=== PATIENT | female | born 1965 | race Hispanic/Latino ===

== ENCOUNTER 2016-11-06 09:57 | Inpatient (IN) | payer MEDICAID ==
[2016-11-06 10:14] VITALS: BMI 26.9
--- NOTE | 2016-11-06 10:28 | C.PDOC ---
History Of Present Illness 51 y/o female presents to the ED with complains of generalized diffuse abdominal pain x2 days. Pain is described as pressure, nonradiating, no known triggers. Denies relieving factors. Pt also reports SOB due to distension. Pt also complains of constipation x 3-4 days. Pt denies fever, chills, urinary symptoms, dizziness, chest pain or any other complaints. Pt reports history of small bowel obstruction 2 months [address] Dr[address] Caraballo did her surgery. Chief Complaint (Nursing): Abdominal Pain History Per: Patient History/Exam Limitations: no limitations Onset/Duration Of Symptoms: Days Current Symptoms Are (Timing): Still Present Severity: Moderate Location Of Pain/Discomfort: Diffuse Radiation Of Pain To:: None Quality Of Discomfort: Pressure Associated Symptoms: Constipation. denies: Fever, Chills, Nausea, Vomiting, Diarrhea, Chest Pain, Urinary Symptoms Alleviating Factors: None Last Bowel Movement: Days Ago Recent travel outside of the [place]: No Past Medical History Reviewed: Historical Data, Nursing Documentation, Vital Signs Vital Signs: Last Vital Signs Temp 99.6 F 11/06/16 10:13 Pulse 124 H 11/06/16 16:05 Resp 18 11/06/16 16:05 BP 95/68 L 11/06/16 16:05 Pulse Ox 96 11/06/16 16:05 - Medical History PMH: Anxiety, Bipolar Disorder, COPD, Depression, Emphysema, Obstructive Bowel Surgical History: Cholecystectomy - [facility] Procedures CYSTOGRAM NEC (01/28/15) DRAINAGE OF RIGHT MIDDLE LOBE BRONCHUS, ENDO, DIAGN (09/21/16) EXCISION OF RIGHT MAIN BRONCHUS, ENDO, DIAGN (09/21/16) INSERTION OF ENDOTRACHEAL AIRWAY INTO TRACHEA, VIA OPENING (09/21/16) INTRODUCTION OF VASOPRESSOR INTO CENTRAL VEIN, PERC APPROACH (09/21/16) RELEASE SMALL INTESTINE, OPEN APPROACH (09/02/16) RESPIRATORY VENTILATION, GREATER THAN 96 CONSECUTIVE HOURS (09/21/16) Family History: States: Unknown Family Hx - Social History Hx Tobacco Use: Yes Hx Alcohol Use: No Hx Substance Use: No - Immunization History Hx Tetanus Toxoid Vaccination: No Hx Influenza Vaccination: No Hx Pneumococcal Vaccination: No Review Of Systems Except As Marked, All Systems Reviewed And Found Negative. Constitutional: Negative for: Fever, Chills Cardiovascular: Negative for: Chest Pain Respiratory: Positive for: Shortness of Breath Gastrointestinal: Positive for: Abdominal Pain, Constipation. Negative for: Nausea, Vomiting Genitourinary: Negative for: Dysuria, Frequency, Hematuria Neurological: Negative for: Dizziness Physical Exam - Physical Exam Appears: Non-toxic, No Acute Distress Skin: Warm, Dry, No Rash Head: Atraumatic, Normacephalic Chest: Symmetrical Cardiovascular: Rhythm Regular Respiratory: Normal Breath Sounds, No Rales, No Rhonchi, No Wheezing Gastrointestinal/Abdominal: Bowel Sounds (hypoactive), Tenderness (diffuse), Distention, Guarding, No Rebound Extremity: No Pedal Edema, No Calf Tenderness, No Swelling Extremity: Bilateral: Atraumatic Neurological/Psych: Oriented x3 ED Course And Treatment - Laboratory Results Result Diagrams: 11/06/16 11:04 11/06/16 11:04 ECG: Viewed By Me ECG Rhythm: Sinus Tachycardia ECG Interpretation: Abnormal Rate From EC O2 Sat by Pulse Oximetry: 96 (on room air) Pulse Ox Interpretation: Normal Reassessment Condition: Improved Medical Decision Making Medical Decision Making: Plan: * XR obstructive series * morphine * IV fluids * NG tube Pt with apparent obstruction on physical exam and on abdominal obstructive series. NG tube placed successfully in ED by Dr. Gil. 100 ml of yellowish fluid was taken out. Discussed pt with her PCP Dr. Valadez and surgeon, Dr Caraballo. pt will be admitted under Dr. Valadez's medical service and Dr. Caraballo will be consulted. Disposition Counseled Patient/Family Regarding: Studies Performed, Diagnosis - Disposition Disposition: HOSPITALIZED Disposition Time: 13:15 Condition: STABLE - Clinical Impression Clinical Impression: Small bowel obstruction
[2016-11-06] MEDS ORDERED: Sodium Chloride 0.9% 1,000 ML ONE ×2 (10:36→13:52)
[2016-11-06] MEDS ORDERED: Sodium Chloride 0.9% 1,000 ML IV ONE ×3 (10:41→16:03)
[2016-11-06 11:12] LABS: EOS % 0.1 % (0.0-4.0); NRBC % 0.1 % (0.0-2.0)
[2016-11-06 11:15] LABS: BASO % 0.3 % (0.0-2.0); HEMATOCRIT 41.3 % (34.0-47.0); LYMPH # 1.3 K/uL (1.0-4.3); LYMPH % 14.2 % (20.0-40.0); MEAN CELL VOLUME 90.4 fL (81.0-99.0); MEAN CORPUSCULAR HEMOGLOBIN 30.2 pg (27.0-31.0); MEAN CORPUSCULAR HGB CONC 33.4 g/dL (33.0-37.0); MEAN PLATELET VOLUME 7.7 fL (7.2-11.7); MONO # 0.2 K/uL (0.0-0.8); MONO % 2.6 % (0.0-10.0); RED CELL DISTRIBUTION WIDTH 15.4 % (11.5-14.5); WHITE BLOOD COUNT 9.2 K/uL (4.8-10.8)
[2016-11-06 11:21] LABS: CHLORIDE 100 mmol/L (98-107); POTASSIUM 3.6 mmol/L (3.6-5.2); SODIUM 140 mmol/L (132-148)
[2016-11-06 11:23] LABS: AST/SGOT 24 U/L (14-36); BILIRUBIN,TOTAL 0.4 mg/dL (0.2-1.3); CARBON DIOXIDE 26 mmol/L (22-30); GFR AFRICAN-AMERICAN > 60
[2016-11-06 11:24] LABS: ALB/GLOB RATIO 1.1 (1.0-2.1); ALKALINE PHOSPHATASE 100 U/L (38-126); ALT/SGPT 39 U/L (9-52); BLOOD UREA NITROGEN 16 mg/dL (7-17); GLUCOSE,RANDOM 88 mg/dL (65-105); TOTAL PROTEIN 5.5 g/dL (6.3-8.3)
[2016-11-06] MEDS ORDERED: HYDROmorphone 1 mg/ml ISec ONE (12:08)
--- NOTE | 2016-11-06 12:44 | RAD ---
PROCEDURE: Radiographs of the chest and abdomen (obstructive series) HISTORY: abdominal pain COMPARISON: No prior. TECHNIQUE: AP radiograph of the chest, with upright and supine radiographs of the abdomen. FINDINGS: CHEST: Lungs: Right basilar opacity. Infiltrate versus atelectasis. Questionable reticular interstitial infiltrate in the right lung. This represents interval change. Follow-up advised. Cardiovascular: Normal size heart. No pulmonary vascular congestion. Pleura: No pleural fluid. No pneumothorax. Other findings: None. ABDOMEN AND PELVIS: Bowel: Multiple dilated small bowel loops suspicious for mechanical small bowel obstruction. Surgical clips noted in right upper quadrant presumably status post prior cholecystectomy. Retained feces are noted in the right colon. Free air: None. Bones: Unremarkable. Other findings: None. IMPRESSION: Suspect mechanical small bowel obstruction. Followup advised. Right basilar infiltrate versus atelectasis. Questionable reticular interstitial infiltrate in the right lung, diffuse. Followup advised.
[2016-11-06] MEDS ORDERED: Morphine 4 MG/ML VIAL ONE (13:52)
[2016-11-06] MEDS ORDERED: HYDROmorphone 1 mg/ml ISec IVP STA (15:51)
--- NOTE | 2016-11-06 17:29 | CP.PCM.HP ---
History of Present Illness - History of Present Illness History of Present Illness: CC: abdominal pain HPI: 51F with extensive PMHx s/p SBO surgery done by Dr. Caraballo in August 2016. Patient reports she saw Dr. Caraballo earlier in the week for a follow up appointment and she felt fine. Two days ago she started to have nausea and diffuse, pressure-like abdominal abdominal pain. She had a small bowel movement , yesterday nonbloody diarrhea. She reports feeling nausea, some SOB due to the abdominal pain. Denied fever, chills, RAZO, chest pain, d/c, or urinary symptoms. PMD: Valadez PMHx: [place] x3, CAD, Lupus, CVA, Depression, Anxiety, COPD, Seizures PSHx: Cholecystectomy, Lysis of Adhesions in 09/05/[address] Caraballo. Meds: Aripiprazole, Advair, Spiriva, Albuterol Nebs, ASA 81 daily, Sertraline 100mg daily, Clopidogrel 75mg daily, Metoprolol 25mg Daily, Levetiracetam 500mg BID, Hydrocodone 10mg, Flexeril 10mg, Alprazolam 2mg, Pantoprozole 40mg, Gabapentin 300mg. ALL: NKDA FamilyHx: Father - Depression SocialHx: 1ppd for 30 years. No ETOH, No recreational drugs. Lives alone in apartment Present on Admission - Present on Admission Any Indicators Present on Admission: No Review of Systems - Constitutional Constitutional: absent: Fever, Headache, Night Sweats - Cardiovascular Cardiovascular: absent: Chest Pain, Syncope - Respiratory Respiratory: absent: Cough, Dyspnea - Gastrointestinal Gastrointestinal: Abdominal Pain, Nausea. absent: Constipation, Diarrhea, Vomiting - Genitourinary Genitourinary: absent: Hematuria, Urinary Frequency, Urinary Hesitance - Musculoskeletal Musculoskeletal: absent: Back Pain - Neurological Neurological: absent: Syncope, Weakness Past Patient History - Infectious Disease Hx of Infectious Diseases: None - Past Medical History & Family History Past Medical History?: Yes - Past Social History Smoking Status: Heavy Smoker > 10 Cigarettes Daily - CARDIAC Hx Cardiac Disorders: No Hx Heart Attack: Yes (x3 as per patient) - PULMONARY Hx Chronic Obstructive Pulmonary Disease (COPD): Yes Hx Emphysema: Yes - NEUROLOGICAL HX Cerebrovascular Accident: Yes (x2) - HEENT Hx HEENT Problems: No - RENAL Hx Chronic Kidney Disease: No - ENDOCRINE/METABOLIC Hx Endocrine Disorders: Yes Hx Systemic Lupus Erythematosus: Yes - HEMATOLOGICAL/ONCOLOGICAL Hx Blood Disorders: No - INTEGUMENTARY Hx Dermatological Problems: No - MUSCULOSKELETAL/RHEUMATOLOGICAL Hx Falls: No - GASTROINTESTINAL Hx Gastrointestinal Disorders: Yes Hx Bowel Surgery: Yes (August 2016) Hx Gastroesophageal Reflux: Yes Other/Comment: GERD - GENITOURINARY/GYNECOLOGICAL Hx Genitourinary Disorders: Yes Hx Incontinence: Yes - PSYCHIATRIC Hx Anxiety: Yes Hx Bipolar Disorder: Yes Hx Depression: Yes Hx Substance Use: No - SURGICAL HISTORY Hx Cholecystectomy: Yes - ANESTHESIA Hx Anesthesia: Yes Hx Anesthesia Reactions: No Hx Malignant Hyperthermia: No Meds Allergies/Adverse Reactions: Allergies Allergy/AdvReac Type Severity Reaction Status Date / Time No Known Allergies Allergy Verified 11/06/16 10:12 Physical Exam - Constitutional Appears: In Acute Distress - Respiratory Exam Respiratory Exam: Clear to Auscultation Bilateral, NORMAL BREATHING PATTERN. absent: Decreased Breath Sounds - Cardiovascular Exam Cardiovascular Exam: Tachycardia, +S1, +S2 - GI/Abdominal Exam GI & Abdominal Exam: Distended, Normal Bowel Sounds, Soft, Tenderness - Rectal Exam Rectal Exam: Deferred - Extremities Exam Extremities exam: Positive for: normal inspection, pedal pulses present. Negative for: pedal edema, tenderness - Neurological Exam Neurological exam: Alert, Oriented x3 - Psychiatric Exam Psychiatric exam: Anxious - Skin Skin Exam: Dry, Intact, Normal Color Results - Vital Signs Recent Vital Signs: Last Vital Signs Temp 99.6 F 11/06/16 10:13 Pulse 124 H 11/06/16 16:05 Resp 18 11/06/16 16:05 BP 95/68 L 11/06/16 16:05 Pulse Ox 96 11/06/16 16:56 - Labs Result Diagrams: 11/06/16 11:04 11/06/16 11:04 Assessment & Plan - Assessment and Plan (Free Text) Plan: SBO * Hx of SBO, surgery done 08/[address] Caraballo * Abdominal Obstructive Series - mechanical small bowel obstruction * NPO * IVF * Zofran * Morphine * Surgery consulted: Dr. Caraballo- help appreciated COPD * Advair * Spiriva Congestive Heart Failure * Echo: EF 45-50% systolic function is normal, mild aortic regurgitation, mitral regurgitaion is mild, mild tricuspid regurgitation, mild-moderate pulmonary hypertension, no pulmonic valvuar regurgitation Coronary Artery Disease * Aspirin 81mg PO daily * Plavix 75mg PO daily Hx of Seizures * Keppra 500mg PO BID * Seizure precautions Lupus * Patient reports has had for 18 years and completed renal biopsy to support lupus nephritis Depression/ Anxiety * Abilify 5mg PO HS * Zoloft 100mg PO daily Prophylactic Measures * GI PPX: Protonix 40mg IVP daily * DVT PPX: lovenox 40 SC daily/ SCDs DW Lenny Snyder DO, PGY-1
[2016-11-06] MEDS ORDERED: Morphine 4 MG/ML VIAL IVP PRN (17:45)
--- NOTE | 2016-11-06 18:18 | CP.PCM.CON ---
History of Present Illness - History of Present Illness History of Present Illness: Surgery consult for Dr. Caraballo 51F with PSh of lysis of adhesion in 09/05/16 for SBO, open daysi, and PMH SBO, SLE, COPD, [place], CVA presents to ED with abd pain, N/V/D. Pt had diagnostic laparoscopic Lysis of adhesion in 09/05/16. She continue to have pain 1 week after the surgery. Pain has been intermittent and has gotten worsen last few day. Pt saw Dr. Caraballo earlier in the week for a follow up appointment and she felt fine. Two days ago she started to have nausea and diffuse, pressure-like abdominal abdominal pain. She had a small bowel movement , yesterday nonbloody diarrhea. She reports non bloody non bilious vomiting 10 days ago. Denied fever, chills, RAZO, chest pain, c, or urinary symptoms. PMD: Valadez PMHx: [place] x3, CAD, Lupus, CVA, Depression, Anxiety, COPD, Seizures PSHx: Cholecystectomy, Lysis of Adhesions in 09/05/[address] Caraballo. Meds: Aripiprazole, Advair, Spiriva, Albuterol Nebs, ASA 81 daily, Sertraline 100mg daily, Clopidogrel 75mg daily, Metoprolol 25mg Daily, Levetiracetam 500mg BID, Hydrocodone 10mg, Flexeril 10mg, Alprazolam 2mg, Pantoprozole 40mg, Gabapentin 300mg. FamilyHx: Father - Depression SocialHx: 1ppd for 30 years. No ETOH, No recreational drugs. Lives alone in apartment Review of Systems - Review of Systems Review of Systems: See HPI - Constitutional Constitutional: absent: Chills Past Patient History - Infectious Disease Hx of Infectious Diseases: None - Past Medical History & Family History Past Medical History?: Yes - Past Social History Smoking Status: Heavy Smoker > 10 Cigarettes Daily - CARDIAC Hx Cardiac Disorders: No Hx Heart Attack: Yes (x3 as per patient) - PULMONARY Hx Chronic Obstructive Pulmonary Disease (COPD): Yes Hx Emphysema: Yes - NEUROLOGICAL HX Cerebrovascular Accident: Yes (x2) - HEENT Hx HEENT Problems: No - RENAL Hx Chronic Kidney Disease: No - ENDOCRINE/METABOLIC Hx Endocrine Disorders: Yes Hx Systemic Lupus Erythematosus: Yes - HEMATOLOGICAL/ONCOLOGICAL Hx Blood Disorders: No - INTEGUMENTARY Hx Dermatological Problems: No - MUSCULOSKELETAL/RHEUMATOLOGICAL Hx Falls: No - GASTROINTESTINAL Hx Gastrointestinal Disorders: Yes Hx Bowel Surgery: Yes (August 2016) Hx Gastroesophageal Reflux: Yes Other/Comment: GERD - GENITOURINARY/GYNECOLOGICAL Hx Genitourinary Disorders: Yes Hx Incontinence: Yes - PSYCHIATRIC Hx Anxiety: Yes Hx Bipolar Disorder: Yes Hx Depression: Yes Hx Substance Use: No - SURGICAL HISTORY Hx Cholecystectomy: Yes - ANESTHESIA Hx Anesthesia: Yes Hx Anesthesia Reactions: No Hx Malignant Hyperthermia: No Meds Allergies/Adverse Reactions: Allergies Allergy/AdvReac Type Severity Reaction Status Date / Time No Known Allergies Allergy Verified 11/06/16 10:12 - Medications Medications: Current Medications Sodium Chloride (Sodium Chloride 0.9%) 1,000 mls @ 100 mls/hr IV .Q10H [facility] Morphine Sulfate (Morphine Sulfate) 4 mg IVP Q4H PRN Ondansetron HCl (Zofran Inj) 4 mg IVP Q6 PRN PRN Reason: Nausea/Vomiting Pantoprazole Sodium (Protonix Inj) 40 mg IVP DAILY [facility] Physical Exam - Constitutional Appears: In Acute Distress - Head Exam Head Exam: ATRAUMATIC, NORMAL INSPECTION, NORMOCEPHALIC - Eye Exam Eye Exam: EOMI, Normal appearance, PERRL Pupil Exam: NORMAL ACCOMODATION, PERRL - ENT Exam ENT Exam: Mucous Membranes Moist, Normal Exam Additional comments: NG in place 200 output. - Neck Exam Neck exam: Positive for: Normal Inspection - Respiratory Exam Respiratory Exam: Clear to Auscultation Bilateral, NORMAL BREATHING PATTERN - Cardiovascular Exam Cardiovascular Exam: REGULAR RHYTHM - GI/Abdominal Exam GI & Abdominal Exam: Distended, Guarding. absent: Hernia, Mass, Tenderness Additional comments: Well healed incision - Extremities Exam Extremities exam: Positive for: normal inspection - Back Exam Back exam: NORMAL INSPECTION - Neurological Exam Neurological exam: Alert, CN II-XII Intact, Normal Gait, Oriented x3, Reflexes Normal - Psychiatric Exam Psychiatric exam: Normal Affect - Skin Skin Exam: Dry, Intact, Normal Color, Warm Results - Vital Signs Recent Vital Signs: Last Vital Signs Temp 99.6 F 11/06/16 10:13 Pulse 124 H 11/06/16 16:05 Resp 18 11/06/16 16:05 BP 95/68 L 11/06/16 16:05 Pulse Ox 96 11/06/16 16:56 - Labs Result Diagrams: 11/06/16 11:04 11/06/16 11:04 Assessment & Plan - Assessment and Plan (Free Text) Assessment: SBO Obstructive series: SBO -NPO -NGT on low suction -IVF -Serial abd exam -Medical management DW Dr. Caraballo
[2016-11-06] MEDS: Sodium Chloride 0.9% 1,000 ML IV SCH (18:21)
[2016-11-07] MEDS: Morphine 4 MG/ML VIAL IVP PRN ×2 (01:59→05:57)
[2016-11-07] MEDS: Sodium Chloride 0.9% 1,000 ML IV SCH ×2 (05:57→13:13)
[2016-11-07] MEDS: Fluticasone-Salmeterol 250-50mcg Diskus IH SCH ×3 (08:06→19:53)
--- NOTE | 2016-11-07 08:35 | CP.PCM.PN ---
Subjective - Date & Time of Evaluation Date of Evaluation: 11/07/16 Time of Evaluation: 08:32 - Subjective Subjective: Surgery for Dr. Caraballo Pt s&e. Pt feels better but stil c/o diffuse abd pain. NG put out 1 L bilious fluids. Denies F//N/V. No BM today. Last one was 2 days ago/ Objective - Vital Signs/Intake and Output Vital Signs (last 24 hours): Temp Pulse Resp BP Pulse Ox 97.6 F 106 H 20 94/60 L 94 L 11/07/16 07:57 11/07/16 00:39 11/07/16 07:57 11/07/16 07:57 11/07/16 07:57 Intake and Output: 11/07/16 11/07/16 06:59 18:59 Intake Total 700 800 Output Total 450 1000 Balance 250 -200 - Medications Medications: Current Medications Aripiprazole (Abilify) 5 mg PO DAILY [facility] Aspirin (Aspirin Chewable) 81 mg PO DAILY [facility] Clopidogrel Bisulfate (Plavix) 75 mg PO DAILY [facility] Enoxaparin Sodium (Lovenox) 40 mg SC DAILY [facility] Famotidine (Pepcid) 20 mg PO BID [facility] Gabapentin (Neurontin) 300 mg PO DAILY [facility] Hydromorphone HCl (Dilaudid) 0.5 mg IVP Q3 PRN PRN Reason: pain Sodium Chloride (Sodium Chloride 0.9%) 1,000 mls @ 100 mls/hr IV .Q10H [facility] Last Admin: 11/07/16 05:57 Dose: 100 mls/hr Influenza Virus Vaccine (Afluria) 45 mcg IM .ONCE ONE Stop: 11/09/16 10:01 Ketorolac Tromethamine (Toradol) 30 mg IVP Q6 [facility] Levetiracetam (Keppra) 500 mg PO BID [facility] Morphine Sulfate (Morphine Sulfate) 4 mg IVP Q4H PRN PRN Reason: Pain, severe (8-10) Last Admin: 11/07/16 05:57 Dose: 4 mg Ondansetron HCl (Zofran Inj) 4 mg IVP Q6 PRN PRN Reason: Nausea/Vomiting Last Admin: 11/06/16 19:42 Dose: 4 mg Pneumococcal Polyvalent Vaccine (Pneumovax 23 Vaccine) 0.5 ml IM .ONCE ONE Stop: 11/09/16 10:01 Fluticasone/Salmeterol (Advair Diskus 250/50) 1 puff IH RBID [facility] Last Admin: 11/07/16 08:06 Dose: Not Given Sertraline HCl (Zoloft) 100 mg PO DAILY [facility] - Constitutional Appears: No Acute Distress - Head Exam Head Exam: ATRAUMATIC, NORMAL INSPECTION, NORMOCEPHALIC - Eye Exam Eye Exam: EOMI, Normal appearance, PERRL Pupil Exam: NORMAL ACCOMODATION, PERRL - ENT Exam ENT Exam: Mucous Membranes Moist, Normal Exam - Neck Exam Neck Exam: Full ROM, Normal Inspection. absent: Lymphadenopathy - Respiratory Exam Respiratory Exam: Clear to Ausculation Bilateral, NORMAL BREATHING PATTERN - Cardiovascular Exam Cardiovascular Exam: REGULAR RHYTHM, +S1, +S2. absent: Murmur - GI/Abdominal Exam GI & Abdominal Exam: Distended, Guarding, Soft, Tenderness. absent: Firm, Rigid , Rebound Additional comments: Diffuse TTP. Less distended today - Extremities Exam Extremities Exam: Full ROM, Normal Capillary Refill, Normal Inspection. absent : Joint Swelling, Pedal Edema - Back Exam Back Exam: NORMAL INSPECTION - Neurological Exam Neurological Exam: Alert, Awake, CN II-XII Intact, Normal Gait, Oriented x3 - Skin Skin Exam: Dry, Intact, Normal Color, Warm Assessment and Plan - Assessment and Plan (Free Text) Assessment: SBO -NPO -NGT -Pain control -Medical management -Monitor bowel function -YAZMIN Caraballo
[2016-11-07 09:31] LABS: BASO # 0.1 K/uL (0.0-0.2); BASO % 0.6 % (0.0-2.0); EOS % 0.1 % (0.0-4.0); HEMATOCRIT 33.4 % (34.0-47.0); LYMPH % 19.6 % (20.0-40.0); MEAN CELL VOLUME 90.1 fL (81.0-99.0); MEAN CORPUSCULAR HEMOGLOBIN 30.3 pg (27.0-31.0); MEAN CORPUSCULAR HGB CONC 33.7 g/dL (33.0-37.0); MEAN PLATELET VOLUME 7.2 fL (7.2-11.7); MONO # 0.4 K/uL (0.0-0.8); NRBC % 0.1 % (0.0-2.0); RED CELL DISTRIBUTION WIDTH 15.4 % (11.5-14.5); WHITE BLOOD COUNT 10.4 K/uL (4.8-10.8)
[2016-11-07 09:43] LABS: CHLORIDE 105 mmol/L (98-107)
[2016-11-07 09:44] LABS: POTASSIUM 3.3 mmol/L (3.6-5.2); SODIUM 138 mmol/L (132-148)
[2016-11-07 09:46] LABS: ALB/GLOB RATIO 0.9 (1.0-2.1); ALKALINE PHOSPHATASE 67 U/L (38-126); AST/SGOT 17 U/L (14-36); BILIRUBIN,TOTAL 0.5 mg/dL (0.2-1.3); BLOOD UREA NITROGEN 11 mg/dL (7-17); CARBON DIOXIDE 23 mmol/L (22-30); GFR AFRICAN-AMERICAN > 60; GLUCOSE,RANDOM 82 mg/dL (65-105); TOTAL PROTEIN 4.5 g/dL (6.3-8.3)
[2016-11-07 09:47] LABS: ALT/SGPT 29 U/L (9-52); CALCIUM 6.8 mg/dl (8.6-10.4)
[2016-11-07] MEDS: HYDROmorphone 0.5 mg/0.5 ml ISec IVP PRN ×5 (10:02→22:49)
[2016-11-07] MEDS: Enoxaparin 40 mg Syringe SC SCH (10:03)
[2016-11-07 10:45] LABS: RBC URINE 1 /hpf (0-3); URINE BACTERIA RARE (<OCC); URINE BILIRUBIN NEGATIVE (NEGATIVE); URINE BLOOD NEGATIVE (NEGATIVE); URINE COLOR Yellow (YELLOW); URINE GLUCOSE (UA) NORMAL (Normal); URINE KETONE NEGATIVE (NEGATIVE); URINE LEUKOCYTE ESTERASE NEG Leu/uL (Negative); URINE PROTEIN NEGATIVE (NEGATIVE); URINE UROBILINOGEN NORMAL mg/dL (0.2-1.0); WBC URINE 7 /hpf (0-5)
--- NOTE | 2016-11-07 19:15 | CP.PCM.PN ---
<Desi Santos - Last Filed: 11/07/16 19:13> Subjective - Date & Time of Evaluation Date of Evaluation: 11/07/16 Time of Evaluation: 10:00 - Subjective Subjective: Medicine Progress Note- Dr. Valadez's service: Patient seen and examined at bedside this AM. She reports abdominal pain has improved since taking medication this AM. Admits to nausea, but no vomiting. She has had good appetite. Last meal was night. No flatus no diarrhea or BM this morning. Patient requesting second surgeon opinion. Objective - Vital Signs/Intake and Output Vital Signs (last 24 hours): Temp Pulse Resp BP Pulse Ox 97.6 F 106 H 20 94/60 L 94 L 11/07/16 07:57 11/07/16 13:17 11/07/16 07:57 11/07/16 07:57 11/07/16 07:57 Intake and Output: 11/07/16 11/08/16 18:59 06:59 Intake Total 800 Output Total 2000 Balance -1200 - Medications Medications: Current Medications Aripiprazole (Abilify) 5 mg PO DAILY [facility] Last Admin: 11/07/16 10:10 Dose: 5 mg Aspirin (Aspirin Chewable) 81 mg PO DAILY [facility] Last Admin: 11/07/16 10:02 Dose: 81 mg Clopidogrel Bisulfate (Plavix) 75 mg PO DAILY [facility] Last Admin: 11/07/16 10:02 Dose: 75 mg Enoxaparin Sodium (Lovenox) 40 mg SC DAILY [facility] Last Admin: 11/07/16 10:03 Dose: 40 mg Famotidine (Pepcid) 20 mg PO BID [facility] Last Admin: 11/07/16 10:02 Dose: 20 mg Gabapentin (Neurontin) 300 mg PO DAILY [facility] Last Admin: 11/07/16 10:02 Dose: 300 mg Hydromorphone HCl (Dilaudid) 0.5 mg IVP Q3 PRN PRN Reason: pain Last Admin: 11/07/16 16:12 Dose: 0.5 mg Potassium Chloride/Dextrose/Sod Cl (Potassium Chl 20 Meq In D5-1/2ns) 1,000 mls @ 80 mls/hr IV .[id number] [facility] Influenza Virus Vaccine (Afluria) 45 mcg IM .ONCE ONE Stop: 11/09/16 10:01 Ketorolac Tromethamine (Toradol) 30 mg IVP Q6 [facility] Levetiracetam (Keppra) 500 mg PO BID [facility] Last Admin: 11/07/16 10:02 Dose: 500 mg Metoclopramide HCl (Reglan) 5 mg IVP TID [facility] Ondansetron HCl (Zofran Inj) 4 mg IVP Q6 PRN PRN Reason: Nausea/Vomiting Last Admin: 11/06/16 19:42 Dose: 4 mg Pneumococcal Polyvalent Vaccine (Pneumovax 23 Vaccine) 0.5 ml IM .ONCE ONE Stop: 11/09/16 10:01 Fluticasone/Salmeterol (Advair Diskus 250/50) 1 puff IH RBID [facility] Last Admin: 11/07/16 10:10 Dose: Not Given Sertraline HCl (Zoloft) 100 mg PO DAILY [facility] Last Admin: 11/07/16 10:10 Dose: 100 mg - Labs Labs: 11/07/16 09:16 11/07/16 09:16 - Constitutional Appears: No Acute Distress - Head Exam Head Exam: NORMAL INSPECTION, NORMOCEPHALIC - Eye Exam Eye Exam: EOMI, Normal appearance - ENT Exam ENT Exam: Mucous Membranes Moist Additional comments: +NGT in place - Respiratory Exam Respiratory Exam: Clear to Ausculation Bilateral, NORMAL BREATHING PATTERN - Cardiovascular Exam Cardiovascular Exam: REGULAR RHYTHM, +S1, +S2 - GI/Abdominal Exam GI & Abdominal Exam: Distended, Guarding, Tenderness. absent: Firm, Rigid - Extremities Exam Extremities Exam: Full ROM, Normal Inspection - Back Exam Back Exam: NORMAL INSPECTION - Neurological Exam Neurological Exam: Alert, Awake, Oriented x3 - Psychiatric Exam Psychiatric exam: Normal Affect, Normal Mood - Skin Skin Exam: Dry, Normal Color, Warm Assessment and Plan - Assessment and Plan (Free Text) Assessment: SBO * Hx of SBO, surgery done 08/[address] Caraballo * Abdominal Obstructive Series - mechanical small bowel obstruction * NPO with NGT. * IVF * Zofran * Dilaudid 0.5 mg IVP Q3H PRN * Surgery consulted: Dr. Caraballo- help appreciated As per surgery team- Obstructive series not typical SBO pattern, may have element of ileus. Start low dose Reglan. COPD * Advair * Spiriva Congestive Heart Failure * Echo: EF 45-50% systolic function is normal, mild aortic regurgitation, mitral regurgitaion is mild, mild tricuspid regurgitation, mild-moderate pulmonary hypertension, no pulmonic valvuar regurgitation Coronary Artery Disease * Aspirin 81mg PO daily * Plavix 75mg PO daily Hx of Seizures * Keppra 500mg PO BID * Seizure precautions Lupus * Patient reports has had for 18 years and completed renal biopsy to support lupus nephritis Depression/ Anxiety * Abilify 5mg PO HS * Zoloft 100mg PO daily * Xanax 2mg PO at night PRN Prophylactic Measures * GI PPX: Protonix 40mg IVP daily * DVT PPX: lovenox 40 SC daily/ SCDs All management as per Dr. Valadez <Theo Valadez Jr. - Last Filed: 11/08/16 15:22> Objective - Vital Signs/Intake and Output Vital Signs (last 24 hours): Temp Pulse Resp BP Pulse Ox 98.5 F 106 H 20 98/62 L 94 L 11/08/16 10:13 11/08/16 10:13 11/08/16 10:13 11/08/16 10:13 11/08/16 10:13 Intake and Output: 11/08/16 11/08/16 06:59 18:59 Intake Total 880 1280 Output Total 600 1203 Balance 280 77 - Medications Medications: Current Medications Alprazolam (Xanax) 2 mg PO HS PRN PRN Reason: Anxiety Last Admin: 11/08/16 00:11 Dose: 2 mg Aripiprazole (Abilify) 5 mg PO DAILY [facility] Last Admin: 11/08/16 10:23 Dose: 5 mg Aspirin (Aspirin Chewable) 81 mg PO DAILY [facility] Last Admin: 11/08/16 10:23 Dose: 81 mg Clopidogrel Bisulfate (Plavix) 75 mg PO DAILY [facility] Last Admin: 11/08/16 10:24 Dose: 75 mg Enoxaparin Sodium (Lovenox) 40 mg SC DAILY [facility] Last Admin: 11/08/16 10:33 Dose: 40 mg Famotidine (Pepcid) 20 mg PO BID [facility] Last Admin: 11/08/16 10:23 Dose: 20 mg Gabapentin (Neurontin) 300 mg PO DAILY [facility] Last Admin: 11/08/16 10:24 Dose: 300 mg Hydromorphone HCl (Dilaudid) 0.5 mg IVP Q3 PRN PRN Reason: pain Last Admin: 11/08/16 14:13 Dose: 0.5 mg Potassium Chloride/Dextrose/Sod Cl (Potassium Chl 40 Meq In D5-1/2ns) 1,000 mls @ 80 mls/hr IV .[id number] [facility] Last Admin: 11/08/16 14:02 Dose: 80 mls/hr Influenza Virus Vaccine (Afluria) 45 mcg IM .ONCE ONE Stop: 11/09/16 10:01 Ketorolac Tromethamine (Toradol) 30 mg IVP Q6 [facility] Levetiracetam (Keppra) 500 mg PO BID [facility] Last Admin: 11/08/16 10:23 Dose: 500 mg Metoclopramide HCl (Reglan) 5 mg IVP TID [facility] Last Admin: 11/08/16 10:33 Dose: 5 mg Ondansetron HCl (Zofran Inj) 4 mg IVP Q6 PRN PRN Reason: Nausea/Vomiting Last Admin: 11/06/16 19:42 Dose: 4 mg Pneumococcal Polyvalent Vaccine (Pneumovax 23 Vaccine) 0.5 ml IM .ONCE ONE Stop: 11/09/16 10:01 Fluticasone/Salmeterol (Advair Diskus 250/50) 1 puff IH RBID [facility] Last Admin: 11/08/16 08:15 Dose: 1 puff Sertraline HCl (Zoloft) 100 mg PO DAILY [facility] Last Admin: 11/08/16 10:24 Dose: 100 mg - Labs Labs: 11/08/16 10:01 11/08/16 10:01 Attending/Attestation - Attestation I have personally seen and examined this patient.: Yes I have fully participated in the care of the patient.: Yes I have reviewed all pertinent clinical information, including history, physical exam and plan: Yes Notes (Text): 11/08/16 15:22 Patient seen and examined with the resident. Reviewed resident note and agree with findings and plan of care. [ ]
[2016-11-07] MEDS: Potassium Ch 20mEq in D5-1/2NS 1,000 ML IV SCH ×2 (19:23→22:53)
[2016-11-08] MEDS: HYDROmorphone 0.5 mg/0.5 ml ISec IVP PRN ×6 (03:40→20:45)
[2016-11-08] MEDS: Fluticasone-Salmeterol 250-50mcg Diskus IH SCH ×2 (08:15→19:46)
[2016-11-08 10:07] LABS: BASO % 0.1 % (0.0-2.0); HEMATOCRIT 32.1 % (34.0-47.0); LYMPH # 1.3 K/uL (1.0-4.3); LYMPH % 11.6 % (20.0-40.0); MEAN CELL VOLUME 90.3 fL (81.0-99.0); MEAN CORPUSCULAR HEMOGLOBIN 29.3 pg (27.0-31.0); MEAN CORPUSCULAR HGB CONC 32.4 g/dL (33.0-37.0); MEAN PLATELET VOLUME 7.2 fL (7.2-11.7); MONO # 0.5 K/uL (0.0-0.8); MONO % 4.5 % (0.0-10.0); RED CELL DISTRIBUTION WIDTH 15.2 % (11.5-14.5); WHITE BLOOD COUNT 11.2 K/uL (4.8-10.8)
[2016-11-08 10:19] LABS: CHLORIDE 104 mmol/L (98-107); POTASSIUM 3.2 mmol/L (3.6-5.2); SODIUM 138 mmol/L (132-148)
[2016-11-08 10:21] LABS: GFR AFRICAN-AMERICAN > 60
[2016-11-08 10:22] LABS: ALB/GLOB RATIO 0.9 (1.0-2.1); ALKALINE PHOSPHATASE 79 U/L (38-126); ALT/SGPT 33 U/L (9-52); AST/SGOT 18 U/L (14-36); BILIRUBIN,TOTAL 0.4 mg/dL (0.2-1.3); BLOOD UREA NITROGEN 10 mg/dL (7-17); CALCIUM 7.1 mg/dl (8.6-10.4); CARBON DIOXIDE 26 mmol/L (22-30); GLUCOSE,RANDOM 104 mg/dL (65-105); TOTAL PROTEIN 4.3 g/dL (6.3-8.3)
[2016-11-08 10:23] LABS: MAGNESIUM 1.2 mg/dL (1.6-2.3)
[2016-11-08] MEDS: Enoxaparin 40 mg Syringe SC SCH (10:33)
--- NOTE | 2016-11-08 10:45 | CP.PCM.PN ---
Subjective - Date & Time of Evaluation Date of Evaluation: 11/08/16 Time of Evaluation: 10:43 - Subjective Subjective: Gen Surg: Dr Caraballo Pt S&E. NAEO. Reports abdominal pain, cramping in nature, but improved from admission. Minimal output from NGT, non-billous. Pt denies any flatus at this time. Objective - Vital Signs/Intake and Output Vital Signs (last 24 hours): Temp Pulse Resp BP Pulse Ox 98.5 F 106 H 20 98/62 L 94 L 11/08/16 10:13 11/08/16 10:13 11/08/16 10:13 11/08/16 10:13 11/08/16 10:13 Intake and Output: 11/08/16 11/08/16 06:59 18:59 Intake Total 880 640 Output Total 600 1000 Balance 280 -360 - Medications Medications: Current Medications Alprazolam (Xanax) 2 mg PO HS PRN PRN Reason: Anxiety Last Admin: 11/08/16 00:11 Dose: 2 mg Aripiprazole (Abilify) 5 mg PO DAILY [facility] Last Admin: 11/08/16 10:23 Dose: 5 mg Aspirin (Aspirin Chewable) 81 mg PO DAILY [facility] Last Admin: 11/08/16 10:23 Dose: 81 mg Clopidogrel Bisulfate (Plavix) 75 mg PO DAILY [facility] Last Admin: 11/08/16 10:24 Dose: 75 mg Enoxaparin Sodium (Lovenox) 40 mg SC DAILY [facility] Last Admin: 11/08/16 10:33 Dose: 40 mg Famotidine (Pepcid) 20 mg PO BID [facility] Last Admin: 11/08/16 10:23 Dose: 20 mg Gabapentin (Neurontin) 300 mg PO DAILY [facility] Last Admin: 11/08/16 10:24 Dose: 300 mg Hydromorphone HCl (Dilaudid) 0.5 mg IVP Q3 PRN PRN Reason: pain Last Admin: 11/08/16 08:00 Dose: 0.5 mg Potassium Chloride/Dextrose/Sod Cl (Potassium Chl 20 Meq In D5-1/2ns) 1,000 mls @ 80 mls/hr IV .[id number] [facility] Last Admin: 11/07/16 22:53 Dose: 80 mls/hr Influenza Virus Vaccine (Afluria) 45 mcg IM .ONCE ONE Stop: 11/09/16 10:01 Ketorolac Tromethamine (Toradol) 30 mg IVP Q6 [facility] Levetiracetam (Keppra) 500 mg PO BID [facility] Last Admin: 11/08/16 10:23 Dose: 500 mg Metoclopramide HCl (Reglan) 5 mg IVP TID [facility] Last Admin: 11/08/16 10:33 Dose: 5 mg Ondansetron HCl (Zofran Inj) 4 mg IVP Q6 PRN PRN Reason: Nausea/Vomiting Last Admin: 11/06/16 19:42 Dose: 4 mg Pneumococcal Polyvalent Vaccine (Pneumovax 23 Vaccine) 0.5 ml IM .ONCE ONE Stop: 11/09/16 10:01 Fluticasone/Salmeterol (Advair Diskus 250/50) 1 puff IH RBID [facility] Last Admin: 11/07/16 19:53 Dose: 1 puff Sertraline HCl (Zoloft) 100 mg PO DAILY [facility] Last Admin: 11/08/16 10:24 Dose: 100 mg - Labs Labs: 11/08/16 10:01 11/08/16 10:01 - Constitutional Appears: Non-toxic, No Acute Distress - Respiratory Exam Respiratory Exam: absent: Respiratory Distress - GI/Abdominal Exam GI & Abdominal Exam: Distended, Soft, Tenderness (suprapubic and lower quadrants ). absent: Firm, Guarding, Rigid, Mass - Neurological Exam Neurological Exam: Alert, Oriented x3 - Psychiatric Exam Psychiatric exam: Normal Affect, Normal Mood - Skin Skin Exam: Normal Color, Warm Assessment and Plan - Assessment and Plan (Free Text) Assessment: 51F with recurrent sbo Plan: cont NGT decompression recommend replete electrolytes - srinivasan Mg and K pt improving, but slowly, will cont to monitor encourage ambulation will d/w Dr Ilya Levine, PGY2
[2016-11-08] MEDS: Potassium Ch 20mEq in D5-1/2NS 1,000 ML IV SCH (11:14)
[2016-11-08] MEDS: Potassium Chl 40 mEq in D5-1/2 1,000 ML IV SCH (14:02)
--- NOTE | 2016-11-08 16:36 | RAD ---
PROCEDURE: Radiographs of the chest and abdomen (obstructive series) HISTORY: obstruction COMPARISON: Comparison is made to the previous study dated 11/06/2016 TECHNIQUE: AP radiograph of the chest, with upright and supine radiographs of the abdomen. FINDINGS: CHEST: Lungs: Heterogeneous reticular opacities in the lungs are again seen. Cardiovascular: The cardiac silhouette is prominent in size. Pleura: There is right pleural effusion. Other findings: There is NG tube seen extending to the stomach. ABDOMEN AND PELVIS: Bowel: The stomach is mildly distended. There are [id number] dilated bowel loops in the abdomen and upper pelvis. Interval improvement since the previous exam noted. Free air: None. Bones: Unremarkable. Other findings: None. IMPRESSION: Dilated bowel loops in the abdomen are again seen. Interval improvement since the previous study. Dilated stomach. Diffuse reticular opacities in the lungs again seen. Right pleural effusion. Appropriate position of the NG tube.
[2016-11-08] MEDS ORDERED: Vancomycin 1 GM in Sodium Chloride 0.9% 200 ML IVPB STA (18:11)
--- NOTE | 2016-11-08 18:14 | CP.PCM.PN ---
<Desi Santos - Last Filed: 11/09/16 00:12> Subjective - Date & Time of Evaluation Date of Evaluation: 11/09/16 Time of Evaluation: 09:25 - Subjective Subjective: Medicine Progress Note- Dr. Valadez's service: Patient seen and examined at bedside this AM. She reports 10/10 abdominal pain. She was requesting Duoneb for history of COPD. Admits to nausea, but no vomiting. Patient had big BM today as per nursing. She admits to flatus. Patient developed fever of 102 and pulse ox of 82% on nasal cannula. She was placed on NRB and O2 sat went up to 98%. Patient was castro cultured and was was given one time dose of Vanco IVPB and scheduled Zosyn. Obs series today shows: Dilated bowel loops in the abdomen are again seen. Interval improvement since the previous study. Dilated stomach.Diffuse reticular opacities in the lungs again seen. Right pleural effusion. (see full report). Surgery resident notified. Patient was also given Lasix 60 mg IVP stat for Hx of CHF. Patient was not in any respiratory distress but continues to be tachycardic. Objective - Vital Signs/Intake and Output Vital Signs (last 24 hours): Temp Pulse Resp BP Pulse Ox 100.4 F H 139 H 20 108/64 96 11/08/16 16:00 11/08/16 16:00 11/08/16 16:00 11/08/16 18:06 11/08/16 16:00 Intake and Output: 11/08/16 11/08/16 06:59 18:59 Intake Total 880 1280 Output Total 600 1203 Balance 280 77 - Medications Medications: Current Medications Alprazolam (Xanax) 2 mg PO HS PRN PRN Reason: Anxiety Last Admin: 11/08/16 00:11 Dose: 2 mg Aripiprazole (Abilify) 5 mg PO DAILY [facility] Last Admin: 11/08/16 10:23 Dose: 5 mg Aspirin (Aspirin Chewable) 81 mg PO DAILY [facility] Last Admin: 11/08/16 10:23 Dose: 81 mg Clopidogrel Bisulfate (Plavix) 75 mg PO DAILY [facility] Last Admin: 11/08/16 10:24 Dose: 75 mg Enoxaparin Sodium (Lovenox) 40 mg SC DAILY [facility] Last Admin: 11/08/16 10:33 Dose: 40 mg Famotidine (Pepcid) 20 mg PO BID [facility] Last Admin: 11/08/16 10:23 Dose: 20 mg Furosemide (Lasix) 40 mg IVP ONCE ONE Stop: 11/09/16 17:50 Furosemide (Lasix) 40 mg IVP DAILY [facility] Gabapentin (Neurontin) 300 mg PO DAILY [facility] Last Admin: 11/08/16 10:24 Dose: 300 mg Hydromorphone HCl (Dilaudid) 0.5 mg IVP Q3 PRN PRN Reason: pain Last Admin: 11/08/16 17:39 Dose: 0.5 mg Potassium Chloride/Dextrose/Sod Cl (Potassium Chl 40 Meq In D5-1/2ns) 1,000 mls @ 80 mls/hr IV .[id number] [facility] Last Admin: 11/08/16 14:02 Dose: 80 mls/hr Piperacillin Sod/Tazobactam (Sod 3.375 gm/ Sodium Chloride) 100 mls @ 200 mls/ hr IVPB Q8H [facility] Vancomycin HCl 1 gm/ Sodium (Chloride) 250 mls @ 166.7 mls/hr IVPB STAT STA Stop: 11/08/16 19:40 Influenza Virus Vaccine (Afluria) 45 mcg IM .ONCE ONE Stop: 11/09/16 10:01 Ketorolac Tromethamine (Toradol) 30 mg IVP Q6 [facility] Levetiracetam (Keppra) 500 mg PO BID [facility] Last Admin: 11/08/16 10:23 Dose: 500 mg Metoclopramide HCl (Reglan) 5 mg IVP TID [facility] Last Admin: 11/08/16 14:00 Dose: 5 mg Ondansetron HCl (Zofran Inj) 4 mg IVP Q6 PRN PRN Reason: Nausea/Vomiting Last Admin: 11/06/16 19:42 Dose: 4 mg Pneumococcal Polyvalent Vaccine (Pneumovax 23 Vaccine) 0.5 ml IM .ONCE ONE Stop: 11/09/16 10:01 Fluticasone/Salmeterol (Advair Diskus 250/50) 1 puff IH RBID [facility] Last Admin: 11/08/16 08:15 Dose: 1 puff Sertraline HCl (Zoloft) 100 mg PO DAILY [facility] Last Admin: 11/08/16 10:24 Dose: 100 mg Spironolactone (Aldactone) 25 mg PO BID [place] - Labs Labs: 11/08/16 10:01 11/08/16 10:01 - Constitutional Appears: No Acute Distress - Head Exam Head Exam: NORMAL INSPECTION, NORMOCEPHALIC - Eye Exam Eye Exam: EOMI, Normal appearance - ENT Exam ENT Exam: Mucous Membranes Moist - Neck Exam Neck Exam: Full ROM, Normal Inspection - Respiratory Exam Respiratory Exam: Clear to Ausculation Bilateral, NORMAL BREATHING PATTERN - Cardiovascular Exam Cardiovascular Exam: Tachycardia, +S1, +S2 - GI/Abdominal Exam GI & Abdominal Exam: Distended, Soft, Tenderness, Hypoactive Bowel Sounds. absent: Guarding - Extremities Exam Extremities Exam: Full ROM, Normal Inspection. absent: Pedal Edema - Back Exam Back Exam: NORMAL INSPECTION - Neurological Exam Neurological Exam: Alert, Awake, Oriented x3 - Psychiatric Exam Psychiatric exam: Normal Affect, Normal Mood - Skin Skin Exam: Dry, Normal Color, Warm Assessment and Plan - Assessment and Plan (Free Text) Assessment: SBO * Hx of SBO, surgery done 08/[address] Caraballo * Abdominal Obstructive Series - mechanical small bowel obstruction * NPO with NGT. * IVF * Zofran * Dilaudid 0.5 mg IVP Q3H PRN * Surgery consulted: Dr. Caraballo- help appreciated As per surgery team- Obstructive series not typical SBO pattern, may have element of ileus. Start low dose Reglan. Will consult second opinion as per Dr. Valadez. Dr. Scott. Fever * f/u cultures * Start Zosyn IVPB * Patient given Vanco IVPB once after cultures * Tylenol PRN for fever * Obs series 11/08 shows: Dilated bowel loops in the abdomen are again seen. Interval improvement since the previous study. Dilated stomach.Diffuse reticular opacities in the lungs again seen. Right pleural effusion. COPD * Advair * Spiriva * Duonebs added Congestive Heart Failure * Echo: EF 45-50% systolic function is normal, mild aortic regurgitation, mitral regurgitaion is mild, mild tricuspid regurgitation, mild-moderate pulmonary hypertension, no pulmonic valvuar regurgitation * Start Lasix 40 mg IVP daily * Start Aldactone 25 mg PO BID Coronary Artery Disease * Aspirin 81mg PO daily * Plavix 75mg PO daily Hx of Seizures * Keppra 500mg PO BID * Seizure precautions Lupus * Patient reports has had for 18 years and completed renal biopsy to support lupus nephritis Depression/ Anxiety * Abilify 5mg PO HS * Zoloft 100mg PO daily * Xanax 2mg PO at night PRN Prophylactic Measures * GI PPX: Protonix 40mg IVP daily * DVT PPX: lovenox 40 SC daily/ SCDs All management as per Dr. Valadez <Theo Valadez Jr. - Last Filed: 11/11/16 15:56> Objective - Vital Signs/Intake and Output Vital Signs (last 24 hours): Temp Pulse Resp BP Pulse Ox 97.3 F L 99 H 32 H 96/61 L 94 L 11/11/16 12:00 11/11/16 14:26 11/11/16 13:25 11/11/16 13:25 11/11/16 13:25 Intake and Output: 11/11/16 11/11/16 06:59 18:59 Intake Total 1670 1115 Output Total 1250 6 Balance 420 1109 - Medications Medications: Current Medications Acetaminophen (Tylenol 325mg Tab) 650 mg PO Q6 PRN PRN Reason: Fever >100.4 F Albuterol/Ipratropium (Duoneb 3 Mg/0.5 Mg (3 Ml) Ud) 3 ml INH RQ6 [facility] Last Admin: 11/11/16 13:58 Dose: 3 ml Alprazolam (Xanax) 2 mg PO HS PRN PRN Reason: Anxiety Last Admin: 11/10/16 21:26 Dose: 2 mg Aripiprazole (Abilify) 5 mg PO DAILY [facility] Last Admin: 11/11/16 09:28 Dose: 5 mg Aspirin (Aspirin Chewable) 81 mg PO DAILY [facility] Last Admin: 11/11/16 09:28 Dose: 81 mg Clopidogrel Bisulfate (Plavix) 75 mg PO DAILY [facility] Last Admin: 11/08/16 10:24 Dose: 75 mg Enoxaparin Sodium (Lovenox) 40 mg SC DAILY [facility] Last Admin: 11/11/16 09:29 Dose: 40 mg Famotidine (Pepcid) 20 mg PO BID [facility] Last Admin: 11/09/16 11:23 Dose: 20 mg Furosemide (Lasix) 40 mg IVP DAILY [facility] Last Admin: 11/11/16 09:29 Dose: 40 mg Hydromorphone HCl (Dilaudid) 0.5 mg IVP Q3H PRN PRN Reason: Pain, moderate (4-7) Potassium Chloride/Dextrose/Sod Cl (Potassium Chl 40 Meq In D5-1/2ns) 1,000 mls @ 80 mls/hr IV .[id number] [facility] Last Admin: 11/11/16 09:31 Dose: 80 mls/hr Piperacillin Sod/Tazobactam (Sod 3.375 gm/ Dextrose) 50 mls @ 100 mls/hr IVPB Q8H [facility] Last Admin: 11/11/16 09:30 Dose: 100 mls/hr Azithromycin 500 mg/ Sodium (Chloride) 250 mls @ 250 mls/hr IVPB Q24H [facility] Last Admin: 11/11/16 11:49 Dose: 250 mls/hr Phenylephrine HCl 30 mg/ (Dextrose) 253 mls @ 10.12 mls/hr IV .Q24H [facility]; 20 MCG /MIN PRN Reason: Protocol Last Admin: 11/11/16 13:25 Dose: 25 mls/hr Trimethoprim/Sulfamethoxazole (240 mg/ Dextrose) 250 mls @ 200 mls/hr IVPB Q8H [facility] Last Admin: 11/11/16 11:47 Dose: 200 mls/hr Levetiracetam (Keppra) 500 mg PO BID [facility] Last Admin: 11/11/16 09:28 Dose: 500 mg Methylprednisolone (Solu-Medrol) 40 mg IV Q8 [facility] Last Admin: 11/11/16 06:15 Dose: 40 mg Metoclopramide HCl (Reglan) 5 mg IVP TID [facility] Last Admin: 11/11/16 13:37 Dose: 5 mg Ondansetron HCl (Zofran Inj) 4 mg IVP Q6 PRN PRN Reason: Nausea/Vomiting Last Admin: 11/09/16 14:18 Dose: 4 mg Saccharomyces Boulardii (Florastor) 250 mg PO DAILY [facility] Last Admin: 11/11/16 13:29 Dose: 250 mg Sertraline HCl (Zoloft) 100 mg PO DAILY [facility] Last Admin: 11/11/16 09:30 Dose: 100 mg Spironolactone (Aldactone) 25 mg PO BID [facility] Last Admin: 11/11/16 09:28 Dose: 25 mg - Labs Labs: 11/11/16 06:31 11/11/16 06:31 Attending/Attestation - Attestation I have personally seen and examined this patient.: Yes I have fully participated in the care of the patient.: Yes I have reviewed all pertinent clinical information, including history, physical exam and plan: Yes Notes (Text): 11/11/16 15:56 Patient seen and examined with the resident. Reviewed resident note and agree with findings and plan of care. [ ]
[2016-11-08 19:07] LABS: BASO % 0.2 % (0.0-2.0); HEMATOCRIT 33.6 % (34.0-47.0); LYMPH # 1.7 K/uL (1.0-4.3); LYMPH % 12.9 % (20.0-40.0); MEAN CELL VOLUME 90.4 fL (81.0-99.0); MEAN CORPUSCULAR HEMOGLOBIN 29.8 pg (27.0-31.0); MEAN PLATELET VOLUME 7.3 fL (7.2-11.7); MONO # 0.5 K/uL (0.0-0.8); MONO % 3.5 % (0.0-10.0); RED CELL DISTRIBUTION WIDTH 15.7 % (11.5-14.5); WHITE BLOOD COUNT 13.4 K/uL (4.8-10.8)
[2016-11-08 19:15] LABS: CHLORIDE 99 mmol/L (98-107); SODIUM 132 mmol/L (132-148)
[2016-11-08 19:16] LABS: POTASSIUM 3.4 mmol/L (3.6-5.2)
[2016-11-08 19:17] LABS: GFR AFRICAN-AMERICAN > 60
[2016-11-08 19:18] LABS: ALB/GLOB RATIO 0.8 (1.0-2.1); ALKALINE PHOSPHATASE 87 U/L (38-126); ALT/SGPT 25 U/L (9-52); AST/SGOT 18 U/L (14-36); BILIRUBIN,TOTAL 0.6 mg/dL (0.2-1.3); BLOOD UREA NITROGEN 9 mg/dL (7-17); CARBON DIOXIDE 26 mmol/L (22-30); GLUCOSE,RANDOM 96 mg/dL (65-105); TOTAL PROTEIN 4.8 g/dL (6.3-8.3)
[2016-11-08 19:19] LABS: CALCIUM 7.3 mg/dl (8.6-10.4)
[2016-11-08] MEDS: Piperacillin/Tazobact 3.375 GM in Dextrose 5% In Water 50 ML IVPB SCH (21:16)
--- NOTE | 2016-11-08 21:16 | CP.PCM.CON ---
History of Present Illness - History of Present Illness History of Present Illness: Gen Surg: Dr Scott Requested to see patient Re: abdominal pain and SBO Pt is a 51F s/p recent dx laparoscopy with Venkata in August of 2016. Pt has had several return visits to for issues related to her SLE. Currently re- admitted with abdominal distension with N/V. Being treated conservatively with NGT. At time of consult, pt reports improvement in abdominal pain. She passed flatus today and had a bowel movement earlier. Admits to continued distension. Pt admits at the time of admission she was having diarrhea but had not had BM for past few days. MHx: [place] x3, CAD, Lupus, CVA, Depression, Anxiety, COPD, Seizures PSHx: Cholecystectomy, Lysis of Adhesions in 09/05/[address] Caraballo. ALL: NKDA Review of Systems - Review of Systems All systems: reviewed and no additional remarkable complaints except (as per hpi ) Past Patient History - Infectious Disease Hx of Infectious Diseases: None - Past Medical History & Family History Past Medical History?: Yes - Past Social History Smoking Status: Heavy Smoker > 10 Cigarettes Daily - CARDIAC Hx Cardiac Disorders: No Hx Heart Attack: Yes (x3 as per patient) - PULMONARY Hx Chronic Obstructive Pulmonary Disease (COPD): Yes Hx Emphysema: Yes - NEUROLOGICAL HX Cerebrovascular Accident: Yes (x2) - HEENT Hx HEENT Problems: No - RENAL Hx Chronic Kidney Disease: No - ENDOCRINE/METABOLIC Hx Endocrine Disorders: Yes Hx Systemic Lupus Erythematosus: Yes - HEMATOLOGICAL/ONCOLOGICAL Hx Blood Disorders: No - INTEGUMENTARY Hx Dermatological Problems: No - MUSCULOSKELETAL/RHEUMATOLOGICAL Hx Falls: No - GASTROINTESTINAL Hx Gastrointestinal Disorders: Yes Hx Bowel Surgery: Yes (August 2016) Hx Gastroesophageal Reflux: Yes Other/Comment: GERD - GENITOURINARY/GYNECOLOGICAL Hx Genitourinary Disorders: Yes Hx Incontinence: Yes - PSYCHIATRIC Hx Anxiety: Yes Hx Bipolar Disorder: Yes Hx Depression: Yes Hx Substance Use: No - SURGICAL HISTORY Hx Cholecystectomy: Yes - ANESTHESIA Hx Anesthesia: Yes Hx Anesthesia Reactions: No Hx Malignant Hyperthermia: No Meds Allergies/Adverse Reactions: Allergies Allergy/AdvReac Type Severity Reaction Status Date / Time No Known Allergies Allergy Verified 11/06/16 10:12 - Medications Medications: Current Medications Acetaminophen (Tylenol 325mg Tab) 650 mg PO Q6 PRN PRN Reason: Fever >100.4 F Albuterol/Ipratropium (Duoneb 3 Mg/0.5 Mg (3 Ml) Ud) 3 ml INH RQ6 [facility] Alprazolam (Xanax) 2 mg PO HS PRN PRN Reason: Anxiety Last Admin: 11/08/16 00:11 Dose: 2 mg Aripiprazole (Abilify) 5 mg PO DAILY [facility] Last Admin: 11/08/16 10:23 Dose: 5 mg Aspirin (Aspirin Chewable) 81 mg PO DAILY [facility] Last Admin: 11/08/16 10:23 Dose: 81 mg Clopidogrel Bisulfate (Plavix) 75 mg PO DAILY [facility] Last Admin: 11/08/16 10:24 Dose: 75 mg Enoxaparin Sodium (Lovenox) 40 mg SC DAILY [facility] Last Admin: 11/08/16 10:33 Dose: 40 mg Famotidine (Pepcid) 20 mg PO BID [facility] Last Admin: 11/08/16 18:25 Dose: 20 mg Furosemide (Lasix) 40 mg IVP ONCE ONE Stop: 11/09/16 17:50 Furosemide (Lasix) 40 mg IVP DAILY [facility] Gabapentin (Neurontin) 300 mg PO DAILY [facility] Last Admin: 11/08/16 10:24 Dose: 300 mg Hydromorphone HCl (Dilaudid) 0.5 mg IVP Q3 PRN PRN Reason: pain Last Admin: 11/08/16 20:45 Dose: 0.5 mg Potassium Chloride/Dextrose/Sod Cl (Potassium Chl 40 Meq In D5-1/2ns) 1,000 mls @ 80 mls/hr IV .[id number] [facility] Last Admin: 11/08/16 14:02 Dose: 80 mls/hr Piperacillin Sod/Tazobactam (Sod 3.375 gm/ Dextrose) 50 mls @ 100 mls/hr IVPB Q8H [facility] Influenza Virus Vaccine (Afluria) 45 mcg IM .ONCE ONE Stop: 11/09/16 10:01 Ketorolac Tromethamine (Toradol) 30 mg IVP Q6 [facility] Levetiracetam (Keppra) 500 mg PO BID [facility] Last Admin: 11/08/16 18:28 Dose: 500 mg Metoclopramide HCl (Reglan) 5 mg IVP TID [facility] Last Admin: 11/08/16 18:38 Dose: 5 mg Ondansetron HCl (Zofran Inj) 4 mg IVP Q6 PRN PRN Reason: Nausea/Vomiting Last Admin: 11/06/16 19:42 Dose: 4 mg Pneumococcal Polyvalent Vaccine (Pneumovax 23 Vaccine) 0.5 ml IM .ONCE ONE Stop: 11/09/16 10:01 Fluticasone/Salmeterol (Advair Diskus 250/50) 1 puff IH RBID [facility] Last Admin: 11/08/16 19:46 Dose: 1 puff Sertraline HCl (Zoloft) 100 mg PO DAILY [facility] Last Admin: 11/08/16 10:24 Dose: 100 mg Spironolactone (Aldactone) 25 mg PO BID [facility] Last Admin: 11/08/16 18:25 Dose: 25 mg Physical Exam - Constitutional Appears: Non-toxic, No Acute Distress - Respiratory Exam Respiratory Exam: absent: Respiratory Distress - GI/Abdominal Exam GI & Abdominal Exam: Distended, Hypoactive Bowel Sounds, Soft, Tenderness ( minimal). absent: Firm, Guarding, Hernia - Neurological Exam Neurological exam: Alert, Oriented x3 - Psychiatric Exam Psychiatric exam: Normal Affect, Normal Mood Results - Vital Signs Recent Vital Signs: Last Vital Signs Temp 98.3 F 11/08/16 20:50 Pulse 121 H 11/08/16 20:50 Resp 24 11/08/16 20:50 BP 106/56 L 11/08/16 20:50 Pulse Ox 97 11/08/16 20:50 - Labs Result Diagrams: 11/08/16 19:03 11/08/16 19:03 Labs: Laboratory Results - last 24 hr 11/08/16 11/08/16 10:01 19:03 WBC 11.2 H 13.4 H RBC 3.56 L 3.72 L Hgb 10.4 L 11.1 Hct 32.1 L 33.6 L MCV 90.3 90.4 MCH 29.3 29.8 MCHC 32.4 L 33.0 RDW 15.2 H 15.7 H Plt Count 255 290 MPV 7.2 7.3 Neut % (Auto) 83.8 H 83.4 H Lymph % (Auto) 11.6 L 12.9 L [place] % (Auto) 4.5 3.5 Eos % (Auto) 0.0 0.0 Baso % (Auto) 0.1 0.2 Neut # 9.4 H 11.2 H Lymph # 1.3 1.7 [place] # 0.5 0.5 Eos # 0.0 0.0 Baso # 0.0 0.0 Sodium 138 132 Potassium 3.2 L 3.4 L Chloride 104 99 Carbon Dioxide 26 26 Anion Gap 11 10 BUN 10 9 Creatinine 0.4 L 0.5 L Est GFR ( Amer) > 60 > 60 Est GFR (Non-Af Amer) > 60 > 60 Random Glucose 104 96 Calcium 7.1 L 7.3 L Magnesium 1.2 L Total Bilirubin 0.4 0.6 AST 18 18 ALT 33 25 Alkaline Phosphatase 79 87 NT-Pro-B Natriuret Pep 3490 H Total Protein 4.3 L 4.8 L Albumin 2.0 L 2.2 L Globulin 2.3 2.7 Albumin/Globulin Ratio 0.9 L 0.8 L Assessment & Plan - Assessment and Plan (Free Text) Assessment: 51F w/ SBO; resolving Plan: Pt having BM conservative mgmt working adequately agree with NGT remaining until distension resolves, likely 2/2 swallow air will cont to follow d/w Dr Tyler Levine, PGY2 - Date & Time Date: 11/08/16 Time: 21:18
[2016-11-08 22:08] LABS: RBC URINE 2 /hpf (0-3); URINE BACTERIA FEW (<OCC); URINE BILIRUBIN NEGATIVE (NEGATIVE); URINE BLOOD NEGATIVE (NEGATIVE); URINE COLOR Yellow (YELLOW); URINE GLUCOSE (UA) NORMAL (Normal); URINE KETONE NEGATIVE (NEGATIVE); URINE LEUKOCYTE ESTERASE 2+ Leu/uL (Negative); URINE PROTEIN NEGATIVE (NEGATIVE); URINE UROBILINOGEN NORMAL mg/dL (0.2-1.0); WBC URINE 86 /hpf (0-5)
[2016-11-09] MEDS: Potassium Chl 40 mEq in D5-1/2 1,000 ML IV SCH ×3 (01:15→15:14)
[2016-11-09] MEDS: Piperacillin/Tazobact 3.375 GM in Dextrose 5% In Water 50 ML IVPB SCH ×3 (02:20→17:43)
[2016-11-09] MEDS: HYDROmorphone 0.5 mg/0.5 ml ISec IVP PRN ×4 (03:02→14:47)
[2016-11-09 08:15] LABS: BASO % 0.2 % (0.0-2.0); EOS % 0.4 % (0.0-4.0); HEMATOCRIT 30.6 % (34.0-47.0); LYMPH # 1.1 K/uL (1.0-4.3); LYMPH % 11.9 % (20.0-40.0); MEAN CELL VOLUME 90.5 fL (81.0-99.0); MEAN CORPUSCULAR HEMOGLOBIN 30.2 pg (27.0-31.0); MEAN CORPUSCULAR HGB CONC 33.4 g/dL (33.0-37.0); MEAN PLATELET VOLUME 7.5 fL (7.2-11.7); MONO # 0.3 K/uL (0.0-0.8); MONO % 3.5 % (0.0-10.0); RED CELL DISTRIBUTION WIDTH 15.4 % (11.5-14.5)
[2016-11-09] MEDS: Fluticasone-Salmeterol 250-50mcg Diskus IH SCH (08:18)
[2016-11-09] MEDS: Albuterol-Ipratrop 3 mg / 0.5 (3 ml) UD INH SCH ×2 (08:18→20:56)
--- NOTE | 2016-11-09 08:22 | RAD ---
PROCEDURE: CHEST RADIOGRAPH, 1 VIEW HISTORY: Fever COMPARISON: 11/08/2016 at 1:41 p.m. FINDINGS: The nasogastric tube terminates in the stomach. LUNGS: Again seen are low lung volumes and diffuse interstitial thickening in both lungs. There is ill-defined haziness in the right upper lobe and left lower lobe. PLEURA: No pneumothorax or pleural fluid seen. CARDIOVASCULAR: Normal. OSSEOUS STRUCTURES: No significant abnormalities. VISUALIZED UPPER ABDOMEN: Normal. OTHER FINDINGS: None. IMPRESSION: Findings are consistent with interstitial pulmonary fibrosis. Ill-defined haziness in the right upper lobe and left lower lobe could represent superimposed developing pneumonia.
[2016-11-09 08:23] LABS: CHLORIDE 103 mmol/L (98-107); POTASSIUM 3.7 mmol/L (3.6-5.2); SODIUM 135 mmol/L (132-148)
[2016-11-09 08:25] LABS: ALB/GLOB RATIO 0.8 (1.0-2.1); ALKALINE PHOSPHATASE 83 U/L (38-126); AST/SGOT 17 U/L (14-36); BILIRUBIN,TOTAL 0.3 mg/dL (0.2-1.3); CARBON DIOXIDE 26 mmol/L (22-30); GFR AFRICAN-AMERICAN > 60; TOTAL PROTEIN 4.3 g/dL (6.3-8.3)
[2016-11-09 08:26] LABS: ALT/SGPT 28 U/L (9-52); BLOOD UREA NITROGEN 9 mg/dL (7-17); CALCIUM 7.2 mg/dl (8.6-10.4); GLUCOSE,RANDOM 83 mg/dL (65-105); MAGNESIUM 1.4 mg/dL (1.6-2.3)
[2016-11-09] MEDS ORDERED: Magnesium Oxide 400 mg Tab UD PO SCH (10:00)
[2016-11-09] MEDS ORDERED: Pneumococcal 23-Valent Vaccine IM ONE (10:00)
[2016-11-09] MEDS ORDERED: Influenza Virus Vaccine 45 mcg/0.5 ml Syr IM ONE (10:00)
--- NOTE | 2016-11-09 10:56 | CP.PCM.CON ---
History of Present Illness - History of Present Illness History of Present Illness: Reason for consultation: Shortness of breath and hypoxemia 51F with PSh of lysis of adhesion in 09/05/16 for SBO, open daysi, and PMH SBO, SLE, COPD, [place], CVA presents to ED with abd pain, N/V/D. Pt had diagnostic laparoscopic Lysis of adhesion in 09/05/16. She continue to have pain 1 week after the surgery. Pain has been intermittent and has gotten worsen last few day. Pt saw Dr. Caraballo earlier in the week for a follow up appointment and she felt fine. Two days ago she started to have nausea and diffuse, pressure-like abdominal abdominal pain. Patient was admitted to the floor for small bowel obstruction and developed shortness of breath and hypoxemia, awake and responsive, denies fever or chills, denies chest pain. PMHx: [place] x3, CAD, Lupus, CVA, Depression, Anxiety, COPD, Seizures PSHx: Cholecystectomy, Lysis of Adhesions in 09/05/[address] Caraballo. Meds: Aripiprazole, Advair, Spiriva, Albuterol Nebs, ASA 81 daily, Sertraline 100mg daily, Clopidogrel 75mg daily, Metoprolol 25mg Daily, Levetiracetam 500mg BID, Hydrocodone 10mg, Flexeril 10mg, Alprazolam 2mg, Pantoprozole 40mg, Gabapentin 300mg. FamilyHx: Father - Depression SocialHx: 1ppd for 30 years. No ETOH, No recreational drugs. Lives alone in apartment Review of Systems - Review of Systems Systems not reviewed;Unavailable: Respiratory Distress Past Patient History - Infectious Disease Hx of Infectious Diseases: None - Past Medical History & Family History Past Medical History?: Yes - Past Social History Smoking Status: Heavy Smoker > 10 Cigarettes Daily - CARDIAC Hx Cardiac Disorders: No Hx Heart Attack: Yes (x3 as per patient) - PULMONARY Hx Chronic Obstructive Pulmonary Disease (COPD): Yes Hx Emphysema: Yes - NEUROLOGICAL HX Cerebrovascular Accident: Yes (x2) - HEENT Hx HEENT Problems: No - RENAL Hx Chronic Kidney Disease: No - ENDOCRINE/METABOLIC Hx Endocrine Disorders: Yes Hx Systemic Lupus Erythematosus: Yes - HEMATOLOGICAL/ONCOLOGICAL Hx Blood Disorders: No - INTEGUMENTARY Hx Dermatological Problems: No - MUSCULOSKELETAL/RHEUMATOLOGICAL Hx Falls: No - GASTROINTESTINAL Hx Gastrointestinal Disorders: Yes Hx Bowel Surgery: Yes (August 2016) Hx Gastroesophageal Reflux: Yes Other/Comment: GERD - GENITOURINARY/GYNECOLOGICAL Hx Genitourinary Disorders: Yes Hx Incontinence: Yes - PSYCHIATRIC Hx Anxiety: Yes Hx Bipolar Disorder: Yes Hx Depression: Yes Hx Substance Use: No - SURGICAL HISTORY Hx Cholecystectomy: Yes - ANESTHESIA Hx Anesthesia: Yes Hx Anesthesia Reactions: No Hx Malignant Hyperthermia: No Meds Allergies/Adverse Reactions: Allergies Allergy/AdvReac Type Severity Reaction Status Date / Time No Known Allergies Allergy Verified 11/06/16 10:12 - Medications Medications: Current Medications Acetaminophen (Tylenol 325mg Tab) 650 mg PO Q6 PRN PRN Reason: Fever >100.4 F Albuterol/Ipratropium (Duoneb 3 Mg/0.5 Mg (3 Ml) Ud) 3 ml INH RQ6 [facility] Last Admin: 11/09/16 08:18 Dose: 3 ml Alprazolam (Xanax) 2 mg PO HS PRN PRN Reason: Anxiety Last Admin: 11/08/16 00:11 Dose: 2 mg Aripiprazole (Abilify) 5 mg PO DAILY [facility] Last Admin: 11/08/16 10:23 Dose: 5 mg Aspirin (Aspirin Chewable) 81 mg PO DAILY [facility] Last Admin: 11/08/16 10:23 Dose: 81 mg Clopidogrel Bisulfate (Plavix) 75 mg PO DAILY [facility] Last Admin: 11/08/16 10:24 Dose: 75 mg Enoxaparin Sodium (Lovenox) 40 mg SC DAILY [facility] Last Admin: 11/08/16 10:33 Dose: 40 mg Famotidine (Pepcid) 20 mg PO BID [facility] Last Admin: 11/08/16 18:25 Dose: 20 mg Furosemide (Lasix) 40 mg IVP ONCE ONE Stop: 11/09/16 17:50 Furosemide (Lasix) 40 mg IVP DAILY [facility] Gabapentin (Neurontin) 300 mg PO DAILY [facility] Last Admin: 11/08/16 10:24 Dose: 300 mg Hydromorphone HCl (Dilaudid) 0.5 mg IVP Q3 PRN PRN Reason: pain Last Admin: 11/09/16 08:34 Dose: 0.5 mg Potassium Chloride/Dextrose/Sod Cl (Potassium Chl 40 Meq In D5-1/2ns) 1,000 mls @ 80 mls/hr IV .[id number] [facility] Last Admin: 11/09/16 05:33 Dose: 80 mls/hr Piperacillin Sod/Tazobactam (Sod 3.375 gm/ Dextrose) 50 mls @ 100 mls/hr IVPB Q8H [facility] Last Admin: 11/09/16 02:20 Dose: 100 mls/hr Azithromycin 500 mg/ Sodium (Chloride) 250 mls @ 250 mls/hr IVPB DAILY [facility] Ketorolac Tromethamine (Toradol) 30 mg IVP Q6 [facility] Levetiracetam (Keppra) 500 mg PO BID [facility] Last Admin: 11/08/16 18:28 Dose: 500 mg Magnesium Oxide (Mag-Ox) 400 mg PO DAILY [facility] Metoclopramide HCl (Reglan) 5 mg IVP TID [facility] Last Admin: 11/08/16 18:38 Dose: 5 mg Ondansetron HCl (Zofran Inj) 4 mg IVP Q6 PRN PRN Reason: Nausea/Vomiting Last Admin: 11/06/16 19:42 Dose: 4 mg Sertraline HCl (Zoloft) 100 mg PO DAILY [facility] Last Admin: 11/08/16 10:24 Dose: 100 mg Spironolactone (Aldactone) 25 mg PO BID [facility] Last Admin: 11/08/16 18:25 Dose: 25 mg Physical Exam - Constitutional Appears: In Acute Distress - Head Exam Head Exam: ATRAUMATIC, NORMOCEPHALIC - Eye Exam Eye Exam: EOMI - ENT Exam ENT Exam: Mucous Membranes Moist - Neck Exam Neck exam: Positive for: Normal Inspection - Respiratory Exam Respiratory Exam: Respiratory Distress - Cardiovascular Exam Cardiovascular Exam: REGULAR RHYTHM - GI/Abdominal Exam GI & Abdominal Exam: Distended, Soft - Extremities Exam Extremities exam: Positive for: normal inspection - Neurological Exam Neurological exam: Alert Results - Vital Signs Recent Vital Signs: Last Vital Signs Temp 97.6 F 11/09/16 08:24 Pulse 112 H 11/09/16 08:24 Resp 20 11/09/16 08:24 BP 96/57 L 11/09/16 08:24 Pulse Ox 94 L 11/09/16 08:24 - Labs Result Diagrams: 11/29/16 06:24 11/29/16 06:24 Labs: Laboratory Results - last 24 hr 11/08/16 11/08/16 11/09/16 19:03 21:54 04:00 WBC 13.4 H RBC 3.72 L Hgb 11.1 Hct 33.6 L MCV 90.4 MCH 29.8 MCHC 33.0 RDW 15.7 H Plt Count 290 MPV 7.3 Neut % (Auto) 83.4 H Lymph % (Auto) 12.9 L [place] % (Auto) 3.5 Eos % (Auto) 0.0 Baso % (Auto) 0.2 Neut # 11.2 H Lymph # 1.7 [place] # 0.5 Eos # 0.0 Baso # 0.0 Sodium 132 135 Potassium 3.4 L 3.7 Chloride 99 103 Carbon Dioxide 26 26 Anion Gap 10 11 BUN 9 9 Creatinine 0.5 L 0.4 L Est GFR ( Amer) > 60 > 60 Est GFR (Non-Af Amer) > 60 > 60 Random Glucose 96 83 Calcium 7.3 L 7.2 L Magnesium 1.4 L Total Bilirubin 0.6 0.3 AST 18 17 ALT 25 28 Alkaline Phosphatase 87 83 NT-Pro-B Natriuret Pep 3490 H Total Protein 4.8 L 4.3 L Albumin 2.2 L 1.9 L Globulin 2.7 2.4 Albumin/Globulin Ratio 0.8 L 0.8 L Urine Color Yellow Urine Clarity Hazy Urine pH 5.0 Ur Specific [place] 1.015 Urine Protein Negative Urine Glucose (UA) Normal Urine Ketones Negative Urine Blood Negative Urine Nitrate Negative Urine Bilirubin Negative Urine Urobilinogen Normal Ur Leukocyte Esterase 2+ H Urine WBC (Auto) 86 H Urine RBC (Auto) 2 Ur Squamous Epith Cells 22 H Urine Bacteria Few H 11/09/16 08:20 WBC 9.0 RBC 3.38 L Hgb 10.2 L Hct 30.6 L MCV 90.5 MCH 30.2 MCHC 33.4 RDW 15.4 H Plt Count 224 MPV 7.5 Neut % (Auto) 84.0 H Lymph % (Auto) 11.9 L [place] % (Auto) 3.5 Eos % (Auto) 0.4 Baso % (Auto) 0.2 Neut # 7.6 H Lymph # 1.1 [place] # 0.3 Eos # 0.0 Baso # 0.0 Sodium Potassium Chloride Carbon Dioxide Anion Gap BUN Creatinine Est GFR ( Amer) Est GFR (Non-Af Amer) Random Glucose Calcium Magnesium Total Bilirubin AST ALT Alkaline Phosphatase NT-Pro-B Natriuret Pep Total Protein Albumin Globulin Albumin/Globulin Ratio Urine Color Urine Clarity Urine pH Ur Specific [place] Urine Protein Urine Glucose (UA) Urine Ketones Urine Blood Urine Nitrate Urine Bilirubin Urine Urobilinogen Ur Leukocyte Esterase Urine WBC (Auto) Urine RBC (Auto) Ur Squamous Epith Cells Urine Bacteria Assessment & Plan (1) Acute respiratory failure with hypoxia Status: Acute Comment: ICU evaluation. IV antibiotics. IV steroids and nebulizer treatment. BiPAP. Follow up ABG and chest x-ray. Culture and sensitivity (2) Bilateral pneumonia Status: Acute
[2016-11-09] MEDS: Enoxaparin 40 mg Syringe SC SCH (11:22)
[2016-11-09 11:27] LABS: ABG ALLEN TEST POS; DRAW SITE RR
--- NOTE | 2016-11-09 11:45 | CP.PCM.PN ---
Subjective - Date & Time of Evaluation Date of Evaluation: 11/09/16 Time of Evaluation: 11:42 - Subjective Subjective: General Surgery - Dr. Caraballo Pt S&E. NAEO. Pt states her pain and distension is greatly improved today. She is having BMs. NGT in place w/ clear/yellow drainage.. Pt denies any N/V, F/C. She has some SOB which is improved with O2. Denies any chest pain. Objective - Vital Signs/Intake and Output Vital Signs (last 24 hours): Temp Pulse Resp BP Pulse Ox 97.6 F 112 H 20 96/57 L 94 L 11/09/16 08:24 11/09/16 08:24 11/09/16 08:24 11/09/16 08:24 11/09/16 08:24 Intake and Output: 11/09/16 11/09/16 06:59 18:59 Intake Total 740 640 Output Total 250 950 Balance 490 -310 - Medications Medications: Current Medications Acetaminophen (Tylenol 325mg Tab) 650 mg PO Q6 PRN PRN Reason: Fever >100.4 F Albuterol/Ipratropium (Duoneb 3 Mg/0.5 Mg (3 Ml) Ud) 3 ml INH RQ6 [facility] Last Admin: 11/09/16 08:18 Dose: 3 ml Alprazolam (Xanax) 2 mg PO HS PRN PRN Reason: Anxiety Last Admin: 11/08/16 00:11 Dose: 2 mg Aripiprazole (Abilify) 5 mg PO DAILY [facility] Last Admin: 11/09/16 11:23 Dose: 5 mg Aspirin (Aspirin Chewable) 81 mg PO DAILY [facility] Last Admin: 11/09/16 11:22 Dose: 81 mg Clopidogrel Bisulfate (Plavix) 75 mg PO DAILY [facility] Last Admin: 11/08/16 10:24 Dose: 75 mg Enoxaparin Sodium (Lovenox) 40 mg SC DAILY [facility] Last Admin: 11/09/16 11:22 Dose: 40 mg Famotidine (Pepcid) 20 mg PO BID [facility] Last Admin: 11/09/16 11:23 Dose: 20 mg Furosemide (Lasix) 40 mg IVP ONCE ONE Stop: 11/09/16 17:50 Furosemide (Lasix) 40 mg IVP DAILY [facility] Gabapentin (Neurontin) 300 mg PO DAILY [facility] Last Admin: 11/09/16 11:22 Dose: 300 mg Hydromorphone HCl (Dilaudid) 0.5 mg IVP Q3 PRN PRN Reason: pain Last Admin: 11/09/16 11:35 Dose: 0.5 mg Potassium Chloride/Dextrose/Sod Cl (Potassium Chl 40 Meq In D5-1/2ns) 1,000 mls @ 80 mls/hr IV .[id number] [facility] Last Admin: 11/09/16 05:33 Dose: 80 mls/hr Piperacillin Sod/Tazobactam (Sod 3.375 gm/ Dextrose) 50 mls @ 100 mls/hr IVPB Q8H [facility] Last Admin: 11/09/16 11:20 Dose: 100 mls/hr Azithromycin 500 mg/ Sodium (Chloride) 250 mls @ 250 mls/hr IVPB Q24H [facility] Ketorolac Tromethamine (Toradol) 30 mg IVP Q6 [facility] Levetiracetam (Keppra) 500 mg PO BID [facility] Last Admin: 11/08/16 18:28 Dose: 500 mg Magnesium Oxide (Mag-Ox) 400 mg PO DAILY [facility] Last Admin: 11/09/16 11:27 Dose: 400 mg Metoclopramide HCl (Reglan) 5 mg IVP TID [facility] Last Admin: 11/09/16 11:25 Dose: 5 mg Ondansetron HCl (Zofran Inj) 4 mg IVP Q6 PRN PRN Reason: Nausea/Vomiting Last Admin: 11/06/16 19:42 Dose: 4 mg Sertraline HCl (Zoloft) 100 mg PO DAILY [facility] Last Admin: 11/09/16 11:23 Dose: 100 mg Spironolactone (Aldactone) 25 mg PO BID [facility] Last Admin: 11/09/16 11:23 Dose: 25 mg - Labs Labs: 11/09/16 08:20 11/09/16 04:00 - Constitutional Appears: No Acute Distress - Respiratory Exam Respiratory Exam: NORMAL BREATHING PATTERN. absent: Respiratory Distress - GI/Abdominal Exam GI & Abdominal Exam: Distended, Soft, Tenderness (mild). absent: Guarding, Hernia, Mass - Neurological Exam Neurological Exam: Alert, Oriented x3 - Psychiatric Exam Psychiatric exam: Normal Affect, Normal Mood - Skin Skin Exam: Dry, Intact Assessment and Plan - Assessment and Plan (Free Text) Assessment: 51F with recurrent sbo, improving Plan: -DC NGT -Clear liquid diet and monitor -Replete E-lytes -F/U CT Chest ordered by Pulm. -Will continue to follow w/ you DW Dr. Ilya Medrano PGY2
[2016-11-09] MEDS ORDERED: Iodixanol 320 mg/ml 150 ml Bottle IV ONE (11:59)
[2016-11-09] MEDS ORDERED: MethylPREDNISolone 40 mg Vial IVP SCH (12:00)
[2016-11-09] MEDS: Azithromycin 500 MG in Sodium Chloride 0.9% 250 ML IVPB SCH (12:20)
[2016-11-09] MEDS ORDERED: Iodixanol 320 MG/ML 100 ML BOTTLE IV ONE ×2 (14:26→16:20)
--- NOTE | 2016-11-09 16:12 | CP.PCM.PN ---
<Desi Santos - Last Filed: 11/09/16 18:09> Subjective - Date & Time of Evaluation Date of Evaluation: 11/09/16 Time of Evaluation: 08:00 - Subjective Subjective: PGY 2 Medicine Progress Note- Dr. Valadez's service: Patient seen and examined at bedside this AM. She continues to experience abdominal pain. Admits to [facility] again today. Patient in no respiratory distress earlier in the AM. Fever improved overnight. Patient able to speak in full sentences. Later in the morning, patient was seen by pulm Dr. Graham who evaluated patient and found the her to be in some respiratory distress. Patient had low O2 sats ( 90%-94%) via non re breathing mask. ABG was ordered and PO2 was low. Patient was transferred to ICU as per Dr. Graham. Objective - Vital Signs/Intake and Output Vital Signs (last 24 hours): Temp Pulse Resp BP Pulse Ox 97.6 F 112 H 20 105/70 94 L 11/09/16 08:24 11/09/16 08:24 11/09/16 08:24 11/09/16 11:51 11/09/16 08:24 Intake and Output: 11/09/16 11/09/16 06:59 18:59 Intake Total 740 640 Output Total 250 950 Balance 490 -310 - Medications Medications: Current Medications Acetaminophen (Tylenol 325mg Tab) 650 mg PO Q6 PRN PRN Reason: Fever >100.4 F Albuterol/Ipratropium (Duoneb 3 Mg/0.5 Mg (3 Ml) Ud) 3 ml INH RQ6 [facility] Last Admin: 11/09/16 08:18 Dose: 3 ml Alprazolam (Xanax) 2 mg PO HS PRN PRN Reason: Anxiety Last Admin: 11/08/16 00:11 Dose: 2 mg Aripiprazole (Abilify) 5 mg PO DAILY [facility] Last Admin: 11/09/16 11:23 Dose: 5 mg Aspirin (Aspirin Chewable) 81 mg PO DAILY [facility] Last Admin: 11/09/16 11:22 Dose: 81 mg Clopidogrel Bisulfate (Plavix) 75 mg PO DAILY [facility] Last Admin: 11/08/16 10:24 Dose: 75 mg Enoxaparin Sodium (Lovenox) 40 mg SC DAILY [facility] Last Admin: 11/09/16 11:22 Dose: 40 mg Famotidine (Pepcid) 20 mg PO BID [facility] Last Admin: 11/09/16 11:23 Dose: 20 mg Furosemide (Lasix) 40 mg IVP DAILY [facility] Last Admin: 11/09/16 11:51 Dose: 40 mg Potassium Chloride/Dextrose/Sod Cl (Potassium Chl 40 Meq In D5-1/2ns) 1,000 mls @ 80 mls/hr IV .[id number] [facility] Last Admin: 11/09/16 15:14 Dose: Not Given Piperacillin Sod/Tazobactam (Sod 3.375 gm/ Dextrose) 50 mls @ 100 mls/hr IVPB Q8H [facility] Last Admin: 11/09/16 11:20 Dose: 100 mls/hr Azithromycin 500 mg/ Sodium (Chloride) 250 mls @ 250 mls/hr IVPB Q24H [facility] Last Admin: 11/09/16 12:20 Dose: 250 mls/hr Magnesium Sulfate/Dextrose (Magnesium Sulfate 1 Gm/100 Ml D5w) 100 mls @ 300 mls/hr IVPB Q30M [facility] Stop: 11/09/16 16:49 Vancomycin/Sodium Chloride (Vancocin) 200 mls @ 133 mls/hr IVPB Q12H [facility] Stop: 11/14/16 18:01 Ketorolac Tromethamine (Toradol) 30 mg IVP Q6 [facility] Last Admin: 11/09/16 12:00 Dose: Not Given Levetiracetam (Keppra) 500 mg PO BID [facility] Last Admin: 11/09/16 11:53 Dose: 500 mg Methylprednisolone (Solu-Medrol) 40 mg IV Q8 [facility] Last Admin: 11/09/16 14:18 Dose: 40 mg Metoclopramide HCl (Reglan) 5 mg IVP TID [facility] Last Admin: 11/09/16 14:18 Dose: 5 mg Ondansetron HCl (Zofran Inj) 4 mg IVP Q6 PRN PRN Reason: Nausea/Vomiting Last Admin: 11/09/16 14:18 Dose: 4 mg Sertraline HCl (Zoloft) 100 mg PO DAILY [facility] Last Admin: 11/09/16 11:23 Dose: 100 mg Spironolactone (Aldactone) 25 mg PO BID [facility] Last Admin: 11/09/16 11:23 Dose: 25 mg - Labs Labs: 11/09/16 08:20 11/09/16 04:00 - Constitutional Appears: In Acute Distress - Head Exam Head Exam: NORMAL INSPECTION, NORMOCEPHALIC - Eye Exam Eye Exam: EOMI, Normal appearance - ENT Exam ENT Exam: Mucous Membranes Moist - Respiratory Exam Respiratory Exam: Rales, Rhonchi, Respiratory Distress. absent: Accessory Muscle Use - GI/Abdominal Exam GI & Abdominal Exam: Distended, Soft, Tenderness - Extremities Exam Extremities Exam: Full ROM, Normal Inspection, Pedal Edema. absent: Tenderness - Back Exam Back Exam: Full ROM, NORMAL INSPECTION - Neurological Exam Neurological Exam: Alert, Awake, Oriented x3 - Psychiatric Exam Psychiatric exam: Normal Affect, Normal Mood - Skin Skin Exam: Dry, Normal Color, Warm Assessment and Plan - Assessment and Plan (Free Text) Assessment: Hypoxia * As per ABG. Likely secondary to pneumonia. Patient transferred to ICU as per Dr. Graham. * f/u cultures * Start Vanco IVPB - Day 1 * Zosyn IVPB Q8H- Day 2 * Tylenol PRN for fever CXR 11/08: Interstitial prominence may reflect infection or edema superimposed on chronic interstitial markings. Patchy right lower lobe opacity, possibly pneumonia. Obs series 11/08 shows: Dilated bowel loops in the abdomen are again seen. Interval improvement since the previous study. Dilated stomach.Diffuse reticular opacities in the lungs again seen. Right pleural effusion. Chest CT 11/09: Evidence of pulmonary fibrotic changes. Interstitial and ground- glass opacities may reflect superimposed infection or edema. Scattered bilateral pleural parenchymal consolidations. Small pleural effusions. Pulmonary Fibrosis As seen on Chest CT. Patient with history of Lupus. F/u HIV, LDH, DSDNA SBO * Hx of SBO, surgery done 08/[address] Caraballo * Abdominal Obstructive Series - mechanical small bowel obstruction * NPO with NGT. * IVF * Zofran * Dilaudid 0.5 mg IVP Q3H PRN * Surgery consulted: Dr. Caraballo- help appreciated As per surgery team- Obstructive series not typical SBO pattern, may have element of ileus. Start low dose Reglan. Will consult second opinion as per Dr. Valadez. Dr. Scott. Abd/Pelv CT 11/09: Nasogastric tube extends to the stomach. Dilated fluid-filled loops of small bowel without transition point identified. Appearance remains concerning for partial obstruction. Small perihepatic ascites. Moderate pelvic ascites/free fluid. Hepatomegaly. Hepatic steatosis. Cholecystectomy. Anasarca. COPD * Advair * Spiriva * Duonebs added Congestive Heart Failure * Echo: EF 45-50% systolic function is normal, mild aortic regurgitation, mitral regurgitaion is mild, mild tricuspid regurgitation, mild-moderate pulmonary hypertension, no pulmonic valvuar regurgitation * Lasix 40 mg IVP daily * Aldactone 25 mg PO BID Coronary Artery Disease * Aspirin 81mg PO daily * Plavix 75mg PO daily Hx of Seizures * Keppra 500mg PO BID * Seizure precautions Lupus * Patient reports has had for 18 years and completed renal biopsy to support lupus nephritis * f/u DSDNA Depression/ Anxiety * Abilify 5mg PO HS * Zoloft 100mg PO daily * Xanax 2mg PO at night PRN Prophylactic Measures * GI PPX: Protonix 40mg IVP daily * DVT PPX: lovenox 40 SC daily/ SCDs All management as per Dr. Valadez <Theo Valadez Jr. - Last Filed: 11/11/16 15:59> Objective - Vital Signs/Intake and Output Vital Signs (last 24 hours): Temp Pulse Resp BP Pulse Ox 97.3 F L 99 H 32 H 96/61 L 94 L 11/11/16 12:00 11/11/16 14:26 11/11/16 13:25 11/11/16 13:25 11/11/16 13:25 Intake and Output: 11/11/16 11/11/16 06:59 18:59 Intake Total 1670 1115 Output Total 1250 6 Balance 420 1109 - Medications Medications: Current Medications Acetaminophen (Tylenol 325mg Tab) 650 mg PO Q6 PRN PRN Reason: Fever >100.4 F Albuterol/Ipratropium (Duoneb 3 Mg/0.5 Mg (3 Ml) Ud) 3 ml INH RQ6 [facility] Last Admin: 11/11/16 13:58 Dose: 3 ml Alprazolam (Xanax) 2 mg PO HS PRN PRN Reason: Anxiety Last Admin: 11/10/16 21:26 Dose: 2 mg Aripiprazole (Abilify) 5 mg PO DAILY [facility] Last Admin: 11/11/16 09:28 Dose: 5 mg Aspirin (Aspirin Chewable) 81 mg PO DAILY [facility] Last Admin: 11/11/16 09:28 Dose: 81 mg Clopidogrel Bisulfate (Plavix) 75 mg PO DAILY [facility] Last Admin: 11/08/16 10:24 Dose: 75 mg Enoxaparin Sodium (Lovenox) 40 mg SC DAILY [facility] Last Admin: 11/11/16 09:29 Dose: 40 mg Famotidine (Pepcid) 20 mg PO BID [facility] Last Admin: 11/09/16 11:23 Dose: 20 mg Furosemide (Lasix) 40 mg IVP DAILY [facility] Last Admin: 11/11/16 09:29 Dose: 40 mg Hydromorphone HCl (Dilaudid) 0.5 mg IVP Q3H PRN PRN Reason: Pain, moderate (4-7) Potassium Chloride/Dextrose/Sod Cl (Potassium Chl 40 Meq In D5-1/2ns) 1,000 mls @ 80 mls/hr IV .[id number] [facility] Last Admin: 11/11/16 09:31 Dose: 80 mls/hr Piperacillin Sod/Tazobactam (Sod 3.375 gm/ Dextrose) 50 mls @ 100 mls/hr IVPB Q8H [facility] Last Admin: 11/11/16 09:30 Dose: 100 mls/hr Azithromycin 500 mg/ Sodium (Chloride) 250 mls @ 250 mls/hr IVPB Q24H [facility] Last Admin: 11/11/16 11:49 Dose: 250 mls/hr Phenylephrine HCl 30 mg/ (Dextrose) 253 mls @ 10.12 mls/hr IV .Q24H [facility]; 20 MCG /MIN PRN Reason: Protocol Last Admin: 11/11/16 13:25 Dose: 25 mls/hr Trimethoprim/Sulfamethoxazole (240 mg/ Dextrose) 250 mls @ 200 mls/hr IVPB Q8H [facility] Last Admin: 11/11/16 11:47 Dose: 200 mls/hr Levetiracetam (Keppra) 500 mg PO BID [facility] Last Admin: 11/11/16 09:28 Dose: 500 mg Methylprednisolone (Solu-Medrol) 40 mg IV Q8 [facility] Last Admin: 11/11/16 06:15 Dose: 40 mg Metoclopramide HCl (Reglan) 5 mg IVP TID [facility] Last Admin: 11/11/16 13:37 Dose: 5 mg Ondansetron HCl (Zofran Inj) 4 mg IVP Q6 PRN PRN Reason: Nausea/Vomiting Last Admin: 11/09/16 14:18 Dose: 4 mg Saccharomyces Boulardii (Florastor) 250 mg PO DAILY [facility] Last Admin: 11/11/16 13:29 Dose: 250 mg Sertraline HCl (Zoloft) 100 mg PO DAILY [facility] Last Admin: 11/11/16 09:30 Dose: 100 mg Spironolactone (Aldactone) 25 mg PO BID [facility] Last Admin: 11/11/16 09:28 Dose: 25 mg - Labs Labs: 11/11/16 06:31 11/11/16 06:31 Attending/Attestation - Attestation I have personally seen and examined this patient.: Yes I have fully participated in the care of the patient.: Yes I have reviewed all pertinent clinical information, including history, physical exam and plan: Yes Notes (Text): 11/11/16 15:58 Patient seen and examined with the resident. Reviewed resident note and agree with findings and plan of care. [ ]
--- NOTE | 2016-11-09 16:45 | RAD ---
HISTORY: pneumonia COMPARISON: Chest x-ray performed 11/08/16 TECHNIQUE: Chest, one view. FINDINGS: LUNGS: Interstitial prominence may reflect infection or edema superimposed on chronic interstitial markings. Patchy right lower lobe opacity. Please note that chest x-ray has limited sensitivity for the detection of pulmonary masses. PLEURA: No significant pleural effusion identified. No definite pneumothorax . CARDIOVASCULAR: Heart size appears within normal limits. OSSEOUS STRUCTURES: No acute osseous abnormality identified. VISUALIZED UPPER ABDOMEN: Unremarkable. OTHER FINDINGS: None. IMPRESSION: Interstitial prominence may reflect infection or edema superimposed on chronic interstitial markings. Patchy right lower lobe opacity, possibly pneumonia.
--- NOTE | 2016-11-09 17:41 | CP.PCM.CON ---
History of Present Illness - History of Present Illness History of Present Illness: INFECTIOUS DISEASE CONSULTATION. 51 year old female known to me from her previous hospitalization of 09/21/16 to 10/12/16.when she was hospitalized for septic shock, respiratory failure and bilateral fungal pneumonia. Patient has extensive medical history including seronegative SLE on plaquenil, COPD, CAD, CHF and prior history of acute renal failure requiring hemodialysis, seizure disorder, anxiety and depression who presented this time because of abdominal pain, distention associated with nausea and vomiting. Presently patient is being treated conservatively with NG tube and also admits to having passed flatus and a large bowel movement earlier today. Patient continues to have abdominal distention. Patient was transferred to the floor because of respiratory distress today and presently on BiPAP. INFECTIOUS DISEASE CONSULTATION REQUESTED BY DR. RODRIGUEZ FOR RESPIRATORY DISTRESS/ PNEUMONIA/SMALL BOWEL OBSTRUCTION. PATIENT ADMITS TO HAVING PRODUCTIVE COUGH WITH YELLOWISH SPUTUM. CXR 11/08: Interstitial prominence OR edema superimposed on chronic interstitial markings. Patchy right lower lobe opacity, possibly pneumonia. Obs series 11/08 shows: Dilated bowel loops in the abdomen are again seen. Interval improvement since the previous study. Dilated stomach.Diffuse reticular opacities in the lungs again seen. Right pleural effusion. PATIENT PRESENTLY ON iv ZOSYN 3.04841 HOURLY, iv ZITHROMAX 500 MG ONCE A DAY , VANCO 1 G EVERY 12 HOURLY FOR [employer] COVERAGE STARTED TODAY DISCUSSED WITH THE STAFF.11/09/16 PMHx: DE x3, CAD, Lupus, CVA, Depression, Anxiety, COPD, Seizures PSHx: Cholecystectomy, Lysis of Adhesions in 09/05/[address] Caraballo. ALL: NKDA SOCIAL HISTORY; ONE PACK PER DAY FOR SEVERAL YEARS, DENIES ALCOHOL USE OR DRUG ABUSE. FAMILY HISTORY; FATHER ABDOMINAL CANCER, MOTHER DEPRESSION, WHETHER PARKINSONISM. Review of Systems - Constitutional Constitutional: Chills, Fever - EENT Nose/Mouth/Throat: absent: Post Nasal Drip, Mouth Lesions, Odynophagia, Sore Throat - Cardiovascular Cardiovascular: Dyspnea. absent: Chest Pain, Leg Edema - Respiratory Respiratory: Cough, Change in Mucous Color - Gastrointestinal Gastrointestinal: Abdominal Pain, Constipation, Diarrhea. absent: Nausea, Vomiting - Genitourinary Genitourinary: absent: Dysuria, Hematuria, Pyuria - Neurological Neurological: absent: Dizziness, Headaches - Hematologic/Lymphatic Hematologic: As Per HPI. absent: Easy Bruising, Lymphadenopathy Past Patient History - Infectious Disease Hx of Infectious Diseases: None - Past Medical History & Family History Past Medical History?: Yes - Past Social History Smoking Status: Heavy Smoker > 10 Cigarettes Daily - CARDIAC Hx Cardiac Disorders: No Hx Heart Attack: Yes (x3 as per patient) - PULMONARY Hx Chronic Obstructive Pulmonary Disease (COPD): Yes Hx Emphysema: Yes - NEUROLOGICAL HX Cerebrovascular Accident: Yes (x2) - HEENT Hx HEENT Problems: No - RENAL Hx Chronic Kidney Disease: No - ENDOCRINE/METABOLIC Hx Endocrine Disorders: Yes Hx Systemic Lupus Erythematosus: Yes - HEMATOLOGICAL/ONCOLOGICAL Hx Blood Disorders: No - INTEGUMENTARY Hx Dermatological Problems: No - MUSCULOSKELETAL/RHEUMATOLOGICAL Hx Falls: No - GASTROINTESTINAL Hx Gastrointestinal Disorders: Yes Hx Bowel Surgery: Yes (August 2016) Hx Gastroesophageal Reflux: Yes Other/Comment: GERD - GENITOURINARY/GYNECOLOGICAL Hx Genitourinary Disorders: Yes Hx Incontinence: Yes - PSYCHIATRIC Hx Anxiety: Yes Hx Bipolar Disorder: Yes Hx Depression: Yes Hx Substance Use: No - SURGICAL HISTORY Hx Cholecystectomy: Yes - ANESTHESIA Hx Anesthesia: Yes Hx Anesthesia Reactions: No Hx Malignant Hyperthermia: No Meds Allergies/Adverse Reactions: Allergies Allergy/AdvReac Type Severity Reaction Status Date / Time No Known Allergies Allergy Verified 11/06/16 10:12 - Medications Medications: Current Medications Acetaminophen (Tylenol 325mg Tab) 650 mg PO Q6 PRN PRN Reason: Fever >100.4 F Albuterol/Ipratropium (Duoneb 3 Mg/0.5 Mg (3 Ml) Ud) 3 ml INH RQ6 [facility] Last Admin: 11/09/16 08:18 Dose: 3 ml Alprazolam (Xanax) 2 mg PO HS PRN PRN Reason: Anxiety Last Admin: 11/08/16 00:11 Dose: 2 mg Aripiprazole (Abilify) 5 mg PO DAILY [facility] Last Admin: 11/09/16 11:23 Dose: 5 mg Aspirin (Aspirin Chewable) 81 mg PO DAILY [facility] Last Admin: 11/09/16 11:22 Dose: 81 mg Clopidogrel Bisulfate (Plavix) 75 mg PO DAILY [facility] Last Admin: 11/08/16 10:24 Dose: 75 mg Enoxaparin Sodium (Lovenox) 40 mg SC DAILY [facility] Last Admin: 11/09/16 11:22 Dose: 40 mg Famotidine (Pepcid) 20 mg PO BID [facility] Last Admin: 11/09/16 11:23 Dose: 20 mg Furosemide (Lasix) 40 mg IVP DAILY [facility] Last Admin: 11/09/16 11:51 Dose: 40 mg Potassium Chloride/Dextrose/Sod Cl (Potassium Chl 40 Meq In D5-1/2ns) 1,000 mls @ 80 mls/hr IV .[id number] [facility] Last Admin: 11/09/16 15:14 Dose: Not Given Piperacillin Sod/Tazobactam (Sod 3.375 gm/ Dextrose) 50 mls @ 100 mls/hr IVPB Q8H [facility] Last Admin: 11/09/16 11:20 Dose: 100 mls/hr Azithromycin 500 mg/ Sodium (Chloride) 250 mls @ 250 mls/hr IVPB Q24H [facility] Last Admin: 11/09/16 12:20 Dose: 250 mls/hr Vancomycin/Sodium Chloride (Vancocin) 200 mls @ 133 mls/hr IVPB Q12H [facility] Stop: 11/14/16 18:01 Ketorolac Tromethamine (Toradol) 30 mg IVP Q6 [facility] Last Admin: 11/09/16 12:00 Dose: Not Given Levetiracetam (Keppra) 500 mg PO BID [facility] Last Admin: 11/09/16 11:53 Dose: 500 mg Methylprednisolone (Solu-Medrol) 40 mg IV Q8 [facility] Last Admin: 11/09/16 14:18 Dose: 40 mg Metoclopramide HCl (Reglan) 5 mg IVP TID [facility] Last Admin: 11/09/16 14:18 Dose: 5 mg Ondansetron HCl (Zofran Inj) 4 mg IVP Q6 PRN PRN Reason: Nausea/Vomiting Last Admin: 11/09/16 14:18 Dose: 4 mg Sertraline HCl (Zoloft) 100 mg PO DAILY [facility] Last Admin: 11/09/16 11:23 Dose: 100 mg Spironolactone (Aldactone) 25 mg PO BID [facility] Last Admin: 11/09/16 11:23 Dose: 25 mg Physical Exam - Head Exam Head Exam: NORMAL INSPECTION - Eye Exam Eye Exam: EOMI, PERRL - ENT Exam ENT Exam: Normal Oropharynx - Neck Exam Neck exam: Positive for: Normal Inspection - Respiratory Exam Respiratory Exam: Prolonged Expiratory Phase, Rhonchi - Cardiovascular Exam Cardiovascular Exam: Tachycardia, +S1, +S2 - GI/Abdominal Exam GI & Abdominal Exam: Distended, Guarding, Hypoactive Bowel Sounds, Tenderness ( GENERALIZED TENDERNESS AND BLOATING.) - Rectal Exam Rectal Exam: absent: Bloody Stool - Extremities Exam Extremities exam: Positive for: pedal pulses present. Negative for: calf tenderness, pedal edema - Neurological Exam Neurological exam: Alert, CN II-XII Intact, Oriented x3, Reflexes Normal - Psychiatric Exam Psychiatric exam: Normal Mood - Skin Skin Exam: Normal Color, Warm Results - Vital Signs Recent Vital Signs: Last Vital Signs Temp 97.6 F 11/09/16 08:24 Pulse 112 H 11/09/16 08:24 Resp 20 11/09/16 08:24 BP 105/70 11/09/16 11:51 Pulse Ox 94 L 11/09/16 08:24 - Labs Result Diagrams: 11/09/16 08:20 11/09/16 04:00 Labs: Laboratory Results - last 24 hr 11/08/16 11/08/16 11/09/16 19:03 21:54 04:00 WBC 13.4 H RBC 3.72 L Hgb 11.1 Hct 33.6 L MCV 90.4 MCH 29.8 MCHC 33.0 RDW 15.7 H Plt Count 290 MPV 7.3 Neut % (Auto) 83.4 H Lymph % (Auto) 12.9 L [place] % (Auto) 3.5 Eos % (Auto) 0.0 Baso % (Auto) 0.2 Neut # 11.2 H Lymph # 1.7 Kern # 0.5 Eos # 0.0 Baso # 0.0 Puncture Site pCO2 pO2 HCO3 ABG pH ABG Total CO2 ABG O2 Saturation ABG Base Excess ABG Hemoglobin ABG Carboxyhemoglobin POC ABG HHb (Measured) ABG Methemoglobin Reese Test Hgb O2 Saturation Sodium 132 135 Potassium 3.4 L 3.7 Chloride 99 103 Carbon Dioxide 26 26 Anion Gap 10 11 BUN 9 9 Creatinine 0.5 L 0.4 L Est GFR ( Amer) > 60 > 60 Est GFR (Non-Af Amer) > 60 > 60 Random Glucose 96 83 Calcium 7.3 L 7.2 L Magnesium 1.4 L Total Bilirubin 0.6 0.3 AST 18 17 ALT 25 28 Alkaline Phosphatase 87 83 NT-Pro-B Natriuret Pep 3490 H Total Protein 4.8 L 4.3 L Albumin 2.2 L 1.9 L Globulin 2.7 2.4 Albumin/Globulin Ratio 0.8 L 0.8 L Urine Color Yellow Urine Clarity Hazy Urine pH 5.0 Ur Specific [place] 1.015 Urine Protein Negative Urine Glucose (UA) Normal Urine Ketones Negative Urine Blood Negative Urine Nitrate Negative Urine Bilirubin Negative Urine Urobilinogen Normal Ur Leukocyte Esterase 2+ H Urine WBC (Auto) 86 H Urine RBC (Auto) 2 Ur Squamous Epith Cells 22 H Urine Bacteria Few H 11/09/16 11/09/16 08:20 11:22 WBC 9.0 RBC 3.38 L Hgb 10.2 L Hct 30.6 L MCV 90.5 MCH 30.2 MCHC 33.4 RDW 15.4 H Plt Count 224 MPV 7.5 Neut % (Auto) 84.0 H Lymph % (Auto) 11.9 L [place] % (Auto) 3.5 Eos % (Auto) 0.4 Baso % (Auto) 0.2 Neut # 7.6 H Lymph # 1.1 Kern # 0.3 Eos # 0.0 Baso # 0.0 Puncture Site Rr pCO2 36 pO2 54 L HCO3 24.6 ABG pH 7.43 ABG Total CO2 25.0 ABG O2 Saturation 90.7 L ABG Base Excess -0.2 ABG Hemoglobin 10.3 L ABG Carboxyhemoglobin 2.0 H POC ABG HHb (Measured) 9.0 H ABG Methemoglobin 1.0 Reese Test Pos Hgb O2 Saturation 88.0 L Sodium Potassium Chloride Carbon Dioxide Anion Gap BUN Creatinine Est GFR ( Amer) Est GFR (Non-Af Amer) Random Glucose Calcium Magnesium Total Bilirubin AST ALT Alkaline Phosphatase NT-Pro-B Natriuret Pep Total Protein Albumin Globulin Albumin/Globulin Ratio Urine Color Urine Clarity Urine pH Ur Specific [place] Urine Protein Urine Glucose (UA) Urine Ketones Urine Blood Urine Nitrate Urine Bilirubin Urine Urobilinogen Ur Leukocyte Esterase Urine WBC (Auto) Urine RBC (Auto) Ur Squamous Epith Cells Urine Bacteria - Imaging and Cardiology CT scan - chest Status: Report reviewed by me (Chest CT 11/09: Evidence of pulmonary fibrotic changes. Interstitial and ground-glass opacities may reflect superimposed infection or edema. Scattered bilateral pleural parenchymal consolidations. Small pleural effusions. ) Assessment & Plan - Assessment and Plan (Free Text) Assessment: IMPRESSION; > RESPIRATORY FAILURE/HYPOXIA BILATERAL PNEUMONIA R/O ATYPICAL PNEUMONIA.(HISTORY OF CHANTELL-PARAPSILOSIS PNEUMONIA SEP 2016 S/FOB ) > EXACERBATION OF COPD. > ABDOMINAL PAIN -PARTIAL SMALL BOWEL OBSTRUCTION. (CT ABD /PELVIS-SEE REPORT ) HX OF EXPLORATORY LAP/LYLE AUG 2016. > CHF./CAD. >HISTORY OF SERONEGATIVE LUPUS ON PLAQUENIL. >DEPRESSION/ANXIETY. PLAN; pANCULTURES. SPUTUM gRAM STAIN AND CULTURE. SPUTUM FOR FUNGUS LDH, IN AM CONTINUE iv zOSYN 3.375 EVERY 8 HOURLY 11/08/16 cONTINUE iv zITHROMAX 500 od DAILY 11/09/16. cONTINUE iv VANCOMYCIN 1 G EVERY 12 HOURLY. 11/09/16. fOLLOW-UP vANCO TROUGH LEVEL PRIOR TO THE FOURTH DOSE AND MAINTAIN BETWEEN 10 AND 20. fOLLOW-UP RENAL FUNCTIONS CLOSELY. sURGERY ON BOARD. PRESENTLY TREATING CONSERVATIVELY FOR PARTIAL SMALL BOWEL OBSTRUCTION. wILL FOLLOW ALONG WITH YOU.
[2016-11-09] MEDS: levETIRAcetam 100 mg/ml (5ml) Oral Syringe PO SCH (17:59)
[2016-11-09] MEDS: Vancomycin 1 gm/NS 200 ml 200 ML IVPB SCH (17:59)
--- NOTE | 2016-11-09 18:03 | CT ---
CT chest, abdomen, and pelvis without IV contrast Indication: Pneumonia Technique: Contiguous axial images of the chest, abdomen, and pelvis without oral or IV contrast. Coronal and Sagittal reformats generated and reviewed. Radiation dose: Total exam DLP = 856.32 MGy-cm. Comparison: Chest x-ray performed 11/09/16. CT abdomen and pelvis without IV contrast performed 09/22/16 Findings: Nasogastric tube extends to the stomach. Visualized portions of the inferior thyroid gland appear unremarkable. Heart size appears within normal limits. No significant pericardial effusion. Subcentimeter mediastinal and prevascular lymph nodes, nonspecific. Extensive chronic appearing fibrotic changes throughout both lung ruggiero. Interstitial and ground-glass opacities may reflect superimposed infection or edema. Scattered bilateral pleural parenchymal consolidations. Small pleural effusions. No pneumothorax. Cholecystectomy. Small perihepatic ascites. The noncontrast spleen, kidneys, pancreas, and adrenal glands appear grossly unremarkable. The stomach is nondistended. Lack of oral contrast limits evaluation for bowel pathology. Fluid-filled dilated loops of small bowel without clear transition point. Air and retained fecal material noted within the colon. There is no definite free air. Moderate pelvic ascites/free fluid. Prominent sub cm mesenteric lymph nodes, nonspecific. Uterus is present. The urinary bladder appears unremarkable. Degenerative changes. Mild scoliosis of the lumbar spine convex to the left. Anasarca. Impression: Nasogastric tube extends to the stomach. Dilated fluid-filled loops of small bowel without transition point identified. Appearance remains concerning for partial obstruction. Small perihepatic ascites. Moderate pelvic ascites/free fluid. Evidence of pulmonary fibrotic changes. Interstitial and ground-glass opacities may reflect superimposed infection or edema. Scattered bilateral pleural parenchymal consolidations. Small pleural effusions. Hepatomegaly. Hepatic steatosis. Cholecystectomy. Anasarca. Remainder of findings as above.
--- NOTE | 2016-11-09 18:40 | CP.PCM.CON ---
History of Present Illness - History of Present Illness History of Present Illness: Critical Care consultation for Dr. Jose Robison, PGY-1 51F w/multiple co-morbidities, initially admitted for N/V w/SBO w/conservative mgmt as per surgery. Pt admitted to ICU 2/2 respiratory distress, requiring VTM. Pt able to conversate. Reports she was ambulating to bathroom today when she started gasping for breath. Admits to N, diffuse abdominal pain, soft, unformed BMs x 2 (today), flatus, cough (chronic) w/sputum production (yellow, thick), SOB (chronic), fever (Tmax 102), back pain (chronic), diaphoresis (2/2 menopause). Denies emesis, chills, chest pain, palpitations, sore throat, dizziness, headache, vision changes, dysuria, urinary frequency. PMH: Hx SBO, anxiety, bipolar d/o, COPD, depression, Emphysema, IN x 3, CAD, lupus, CVA, seizures PSH: cholecystectomy, lysis of adhesions (Aug, 2016- Dr. Caraballo), All: NKDA SH: Hx of tobacco abuse- 1ppd x 33 yrs, denies ETOH or illicit drug use; ambulates by self, no home O2 use PMD: Dr. Valadez Review of Systems - Review of Systems All systems: reviewed and no additional remarkable complaints except - Constitutional Constitutional: Fever. absent: Chills, Headache - EENT Eyes: absent: Change in Vision Nose/Mouth/Throat: absent: Sore Throat - Cardiovascular Cardiovascular: Diaphoresis. absent: Chest Pain - Respiratory Respiratory: absent: Cough, Hemoptysis - Gastrointestinal Gastrointestinal: Abdominal Pain, Bloating, Change in Bowel Habits, Nausea. absent: Belching, Constipation, Diarrhea, Hematemesis, Hematochezia, Melena, Vomiting - Genitourinary Genitourinary: absent: Change in Urinary Stream, Dysuria - Musculoskeletal Musculoskeletal: Back Pain (chronic). absent: Neck Pain - Neurological Neurological: absent: Dizziness, Headaches - Psychiatric Psychiatric: Anxiety (chronic), Depression (chronic) - Endocrine Endocrine: Excessive Sweating (menopause) Past Patient History - Infectious Disease Hx of Infectious Diseases: None - Past Medical History & Family History Past Medical History?: Yes - Past Social History Smoking Status: Heavy Smoker > 10 Cigarettes Daily - CARDIAC Hx Cardiac Disorders: No Hx Heart Attack: Yes (x3 as per patient) - PULMONARY Hx Chronic Obstructive Pulmonary Disease (COPD): Yes Hx Emphysema: Yes - NEUROLOGICAL HX Cerebrovascular Accident: Yes (x2) - HEENT Hx HEENT Problems: No - RENAL Hx Chronic Kidney Disease: No - ENDOCRINE/METABOLIC Hx Endocrine Disorders: Yes Hx Systemic Lupus Erythematosus: Yes - HEMATOLOGICAL/ONCOLOGICAL Hx Blood Disorders: No - INTEGUMENTARY Hx Dermatological Problems: No - MUSCULOSKELETAL/RHEUMATOLOGICAL Hx Falls: No - GASTROINTESTINAL Hx Gastrointestinal Disorders: Yes Hx Bowel Surgery: Yes (August 2016) Hx Gastroesophageal Reflux: Yes Other/Comment: GERD - GENITOURINARY/GYNECOLOGICAL Hx Genitourinary Disorders: Yes Hx Incontinence: Yes - PSYCHIATRIC Hx Anxiety: Yes Hx Bipolar Disorder: Yes Hx Depression: Yes Hx Substance Use: No - SURGICAL HISTORY Hx Cholecystectomy: Yes - ANESTHESIA Hx Anesthesia: Yes Hx Anesthesia Reactions: No Hx Malignant Hyperthermia: No Meds Allergies/Adverse Reactions: Allergies Allergy/AdvReac Type Severity Reaction Status Date / Time No Known Allergies Allergy Verified 11/06/16 10:12 - Medications Medications: Current Medications Acetaminophen (Tylenol 325mg Tab) 650 mg PO Q6 PRN PRN Reason: Fever >100.4 F Albuterol/Ipratropium (Duoneb 3 Mg/0.5 Mg (3 Ml) Ud) 3 ml INH RQ6 [facility] Last Admin: 11/09/16 08:18 Dose: 3 ml Alprazolam (Xanax) 2 mg PO HS PRN PRN Reason: Anxiety Last Admin: 11/08/16 00:11 Dose: 2 mg Aripiprazole (Abilify) 5 mg PO DAILY [facility] Last Admin: 11/09/16 11:23 Dose: 5 mg Aspirin (Aspirin Chewable) 81 mg PO DAILY [facility] Last Admin: 11/09/16 11:22 Dose: 81 mg Clopidogrel Bisulfate (Plavix) 75 mg PO DAILY [facility] Last Admin: 11/08/16 10:24 Dose: 75 mg Enoxaparin Sodium (Lovenox) 40 mg SC DAILY [facility] Last Admin: 11/09/16 11:22 Dose: 40 mg Famotidine (Pepcid) 20 mg PO BID [facility] Last Admin: 11/09/16 11:23 Dose: 20 mg Famotidine (Pepcid) 20 mg IVP DAILY [facility] Last Admin: 11/09/16 17:46 Dose: 20 mg Furosemide (Lasix) 40 mg IVP DAILY [facility] Last Admin: 11/09/16 11:51 Dose: 40 mg Potassium Chloride/Dextrose/Sod Cl (Potassium Chl 40 Meq In D5-1/2ns) 1,000 mls @ 80 mls/hr IV .[id number] [facility] Last Admin: 11/09/16 15:14 Dose: Not Given Piperacillin Sod/Tazobactam (Sod 3.375 gm/ Dextrose) 50 mls @ 100 mls/hr IVPB Q8H [facility] Last Admin: 11/09/16 17:43 Dose: 100 mls/hr Azithromycin 500 mg/ Sodium (Chloride) 250 mls @ 250 mls/hr IVPB Q24H [facility] Last Admin: 11/09/16 12:20 Dose: 250 mls/hr Vancomycin/Sodium Chloride (Vancocin) 200 mls @ 133 mls/hr IVPB Q12H [facility] Stop: 11/14/16 18:01 Last Admin: 11/09/16 17:59 Dose: 133 mls/hr Ketorolac Tromethamine (Toradol) 30 mg IVP Q6 [facility] Last Admin: 11/09/16 18:13 Dose: 30 mg Levetiracetam (Keppra) 500 mg PO BID [facility] Last Admin: 11/09/16 17:59 Dose: 500 mg Methylprednisolone (Solu-Medrol) 40 mg IV Q8 [facility] Last Admin: 11/09/16 14:18 Dose: 40 mg Metoclopramide HCl (Reglan) 5 mg IVP TID [facility] Last Admin: 11/09/16 18:13 Dose: 5 mg Ondansetron HCl (Zofran Inj) 4 mg IVP Q6 PRN PRN Reason: Nausea/Vomiting Last Admin: 11/09/16 14:18 Dose: 4 mg Sertraline HCl (Zoloft) 100 mg PO DAILY [facility] Last Admin: 11/09/16 11:23 Dose: 100 mg Spironolactone (Aldactone) 25 mg PO BID [facility] Last Admin: 11/09/16 18:13 Dose: 25 mg Physical Exam - Constitutional Appears: Non-toxic, No Acute Distress - Head Exam Head Exam: ATRAUMATIC, NORMAL INSPECTION, NORMOCEPHALIC - Eye Exam Eye Exam: EOMI, Normal appearance, PERRL Pupil Exam: NORMAL ACCOMODATION, PERRL - ENT Exam ENT Exam: Mucous Membranes Moist, Normal Exam - Neck Exam Neck exam: Positive for: Full Rom, Normal Inspection - Respiratory Exam Respiratory Exam: Wheezes, NORMAL BREATHING PATTERN. absent: Accessory Muscle Use, Chest Wall Tenderness, Clear to Auscultation Bilateral, Rales, Rhonchi - Cardiovascular Exam Cardiovascular Exam: Tachycardia, +S1, +S2 - GI/Abdominal Exam GI & Abdominal Exam: Distended, Hypoactive Bowel Sounds, Soft, Tenderness ( diffuse). absent: Guarding, Rebound - Extremities Exam Extremities exam: Positive for: pedal edema - Neurological Exam Neurological exam: Alert, CN II-XII Intact, Oriented x3 - Psychiatric Exam Psychiatric exam: Normal Affect, Normal Mood - Skin Skin Exam: Diaphoretic, Intact, Normal Color, Warm Results - Vital Signs Recent Vital Signs: Last Vital Signs Temp 97.6 F 11/09/16 08:24 Pulse 112 H 11/09/16 08:24 Resp 20 11/09/16 08:24 BP 105/70 11/09/16 11:51 Pulse Ox 94 L 11/09/16 08:24 - Labs Result Diagrams: 11/09/16 08:20 11/09/16 04:00 Labs: Laboratory Results - last 24 hr 11/08/16 11/08/16 11/09/16 19:03 21:54 04:00 WBC 13.4 H RBC 3.72 L Hgb 11.1 Hct 33.6 L MCV 90.4 MCH 29.8 MCHC 33.0 RDW 15.7 H Plt Count 290 MPV 7.3 Neut % (Auto) 83.4 H Lymph % (Auto) 12.9 L [place] % (Auto) 3.5 Eos % (Auto) 0.0 Baso % (Auto) 0.2 Neut # 11.2 H Lymph # 1.7 [place] # 0.5 Eos # 0.0 Baso # 0.0 Puncture Site pCO2 pO2 HCO3 ABG pH ABG Total CO2 ABG O2 Saturation ABG Base Excess ABG Hemoglobin ABG Carboxyhemoglobin POC ABG HHb (Measured) ABG Methemoglobin Reese Test Hgb O2 Saturation Sodium 132 135 Potassium 3.4 L 3.7 Chloride 99 103 Carbon Dioxide 26 26 Anion Gap 10 11 BUN 9 9 Creatinine 0.5 L 0.4 L Est GFR ( Amer) > 60 > 60 Est GFR (Non-Af Amer) > 60 > 60 Random Glucose 96 83 Calcium 7.3 L 7.2 L Magnesium 1.4 L Total Bilirubin 0.6 0.3 AST 18 17 ALT 25 28 Alkaline Phosphatase 87 83 NT-Pro-B Natriuret Pep 3490 H Total Protein 4.8 L 4.3 L Albumin 2.2 L 1.9 L Globulin 2.7 2.4 Albumin/Globulin Ratio 0.8 L 0.8 L Urine Color Yellow Urine Clarity Hazy Urine pH 5.0 Ur Specific [place] 1.015 Urine Protein Negative Urine Glucose (UA) Normal Urine Ketones Negative Urine Blood Negative Urine Nitrate Negative Urine Bilirubin Negative Urine Urobilinogen Normal Ur Leukocyte Esterase 2+ H Urine WBC (Auto) 86 H Urine RBC (Auto) 2 Ur Squamous Epith Cells 22 H Urine Bacteria Few H 11/09/16 11/09/16 08:20 11:22 WBC 9.0 RBC 3.38 L Hgb 10.2 L Hct 30.6 L MCV 90.5 MCH 30.2 MCHC 33.4 RDW 15.4 H Plt Count 224 MPV 7.5 Neut % (Auto) 84.0 H Lymph % (Auto) 11.9 L [place] % (Auto) 3.5 Eos % (Auto) 0.4 Baso % (Auto) 0.2 Neut # 7.6 H Lymph # 1.1 [place] # 0.3 Eos # 0.0 Baso # 0.0 Puncture Site Rr pCO2 36 pO2 54 L HCO3 24.6 ABG pH 7.43 ABG Total CO2 25.0 ABG O2 Saturation 90.7 L ABG Base Excess -0.2 ABG Hemoglobin 10.3 L ABG Carboxyhemoglobin 2.0 H POC ABG HHb (Measured) 9.0 H ABG Methemoglobin 1.0 Reese Test Pos Hgb O2 Saturation 88.0 L Sodium Potassium Chloride Carbon Dioxide Anion Gap BUN Creatinine Est GFR ( Amer) Est GFR (Non-Af Amer) Random Glucose Calcium Magnesium Total Bilirubin AST ALT Alkaline Phosphatase NT-Pro-B Natriuret Pep Total Protein Albumin Globulin Albumin/Globulin Ratio Urine Color Urine Clarity Urine pH Ur Specific [place] Urine Protein Urine Glucose (UA) Urine Ketones Urine Blood Urine Nitrate Urine Bilirubin Urine Urobilinogen Ur Leukocyte Esterase Urine WBC (Auto) Urine RBC (Auto) Ur Squamous Epith Cells Urine Bacteria Assessment & Plan - Assessment and Plan (Free Text) Assessment: 51F w/respiratory distress in the setting of SBO w/conservative mgmt as per surgery. Plan: Neuro Awake Alert Stable Cont home meds: Zoloft, Xanax, Abilify, Keppra Seizure precautions Monitor CVS Tachycardia BNP 3490 Lasix ASA Plavix held Monitor Pulm Duonebs SOlu-medrol ABG CO2 36, O2 54, HCO3 24.6, pH 7.43 CXR- interstitial prominence- may reflect infection or edema superimposed on chronic interstitial markings. Patchy RLL opacity, poss PNA. Pulm following Nephro D5-1/2 w/40mEq KCl Hypomagnesemia- Mg 1.4 Replaced Spironolactone Monitor GI Toradol NGT w/[address] ab w/NGT extends to stomach, dilated fluid-filled loops of small bowel w/o transition point ID'd. Appearance remains concerning for partial obstruction. Small perihepatic ascites, mod pelvic ascites/free fluid. Evidence of pulmonary fibrotic changes, interstitial and ground-glass opacities may reflect superimposed infection or edema. Scattered B/L pleural parenchymal consolidations. Small pleural effusions. Hepatomegaly. Hepatic steatosis. Cholecystectomy. Anasarca. Hepatobiliary surgery following Gen surg following- SBO mgmt as per surgery Voids on own MOnitor Heme Hgb 10.2 Hct 30.6 Monitor for signs of bleeding Endo Sugars WNL Monitor MSK Monitor for skin break down ID No leukocytosis Febrile over last 24H, Tmax 102.4 Zosyn Azithromycin Vanco Tylenol PRN FU blood/urine cx ID following GI/DVT ppx Pepcid Lovenox Dispo: ICU care Transfer to floor when stable DW attending - Date & Time Date: 11/09/16 Time: 18:43
[2016-11-10] MEDS: Albuterol-Ipratrop 3 mg / 0.5 (3 ml) UD INH SCH ×4 (01:06→20:35)
[2016-11-10] MEDS: Potassium Chl 40 mEq in D5-1/2 1,000 ML IV SCH ×3 (02:00→17:28)
[2016-11-10] MEDS: Piperacillin/Tazobact 3.375 GM in Dextrose 5% In Water 50 ML IVPB SCH ×3 (02:15→17:26)
[2016-11-10] MEDS: Phenylephrine 30 MG in Dextrose 5% In Water 250 ML IV SCH ×3 (04:15→21:35)
[2016-11-10] MEDS: Vancomycin 1 gm/NS 200 ml 200 ML IVPB SCH ×2 (06:00→17:19)
[2016-11-10 06:35] LABS: BASO % 0.3 % (0.0-2.0); EOS % 0.2 % (0.0-4.0); HEMATOCRIT 36.6 % (34.0-47.0); LYMPH # 1.7 K/uL (1.0-4.3); LYMPH % 19.2 % (20.0-40.0); MEAN CELL VOLUME 91.6 fL (81.0-99.0); MEAN CORPUSCULAR HEMOGLOBIN 30.1 pg (27.0-31.0); MEAN CORPUSCULAR HGB CONC 32.9 g/dL (33.0-37.0); MEAN PLATELET VOLUME 7.5 fL (7.2-11.7); MONO # 0.5 K/uL (0.0-0.8); MONO % 5.2 % (0.0-10.0); NRBC % 0.1 % (0.0-2.0); WHITE BLOOD COUNT 9.1 K/uL (4.8-10.8)
[2016-11-10 06:48] LABS: CHLORIDE 101 mmol/L (98-107); POTASSIUM 3.7 mmol/L (3.6-5.2); SODIUM 136 mmol/L (132-148)
[2016-11-10 06:50] LABS: GFR AFRICAN-AMERICAN > 60
[2016-11-10 06:51] LABS: ALB/GLOB RATIO 0.9 (1.0-2.1); ALKALINE PHOSPHATASE 103 U/L (38-126); ALT/SGPT 34 U/L (9-52); AST/SGOT 30 U/L (14-36); BILIRUBIN,TOTAL 0.3 mg/dL (0.2-1.3); BLOOD UREA NITROGEN 9 mg/dL (7-17); CARBON DIOXIDE 27 mmol/L (22-30); GLUCOSE,RANDOM 80 mg/dL (65-105); TOTAL PROTEIN 4.9 g/dL (6.3-8.3)
[2016-11-10 06:52] LABS: CALCIUM 7.7 mg/dl (8.6-10.4)
[2016-11-10] MEDS: Enoxaparin 40 mg Syringe SC SCH (10:44)
[2016-11-10] MEDS: levETIRAcetam 100 mg/ml (5ml) Oral Syringe PO SCH ×2 (10:46→17:14)
--- NOTE | 2016-11-10 11:09 | CP.PCM.PN ---
Subjective - Date & Time of Evaluation Date of Evaluation: 11/10/16 Time of Evaluation: 11:06 - Subjective Subjective: Surgery for Dr. Caraballo Pt s&e. Pt had respiratory distress and sent to ICU. NGT was reinserted and put out 700cc bilious fluids. Pt abd pain is controlled. Has BM. Objective - Vital Signs/Intake and Output Vital Signs (last 24 hours): Temp Pulse Resp BP Pulse Ox 97.6 F 80 26 H 102/83 100 11/10/16 08:00 11/10/16 08:35 11/10/16 08:35 11/10/16 10:48 11/10/16 08:35 Intake and Output: 11/10/16 11/10/16 06:59 18:59 Intake Total 1350 220 Output Total 500 600 Balance 850 -380 - Medications Medications: Current Medications Acetaminophen (Tylenol 325mg Tab) 650 mg PO Q6 PRN PRN Reason: Fever >100.4 F Albuterol/Ipratropium (Duoneb 3 Mg/0.5 Mg (3 Ml) Ud) 3 ml INH RQ6 [facility] Last Admin: 11/10/16 07:44 Dose: 3 ml Alprazolam (Xanax) 2 mg PO HS PRN PRN Reason: Anxiety Last Admin: 11/09/16 21:21 Dose: 2 mg Aripiprazole (Abilify) 5 mg PO DAILY [facility] Last Admin: 11/10/16 10:46 Dose: 5 mg Aspirin (Aspirin Chewable) 81 mg PO DAILY [facility] Last Admin: 11/10/16 10:45 Dose: 81 mg Clopidogrel Bisulfate (Plavix) 75 mg PO DAILY [facility] Last Admin: 11/08/16 10:24 Dose: 75 mg Enoxaparin Sodium (Lovenox) 40 mg SC DAILY [facility] Last Admin: 11/10/16 10:44 Dose: 40 mg Famotidine (Pepcid) 20 mg PO BID [facility] Last Admin: 11/09/16 11:23 Dose: 20 mg Famotidine (Pepcid) 20 mg IVP DAILY [facility] Last Admin: 11/10/16 10:46 Dose: 20 mg Furosemide (Lasix) 40 mg IVP DAILY [facility] Last Admin: 11/10/16 10:48 Dose: 40 mg Potassium Chloride/Dextrose/Sod Cl (Potassium Chl 40 Meq In D5-1/2ns) 1,000 mls @ 80 mls/hr IV .[id number] [facility] Last Admin: 11/10/16 02:00 Dose: 80 mls/hr Piperacillin Sod/Tazobactam (Sod 3.375 gm/ Dextrose) 50 mls @ 100 mls/hr IVPB Q8H [facility] Last Admin: 11/10/16 10:43 Dose: 100 mls/hr Azithromycin 500 mg/ Sodium (Chloride) 250 mls @ 250 mls/hr IVPB Q24H [facility] Last Admin: 11/09/16 12:20 Dose: 250 mls/hr Vancomycin/Sodium Chloride (Vancocin) 200 mls @ 133 mls/hr IVPB Q12H [facility] Stop: 11/14/16 18:01 Last Admin: 11/10/16 06:00 Dose: 133 mls/hr Phenylephrine HCl 30 mg/ (Dextrose) 253 mls @ 10.12 mls/hr IV .Q24H [place]; 20 MCG /MIN PRN Reason: Protocol Last Titration: 11/10/16 08:00 Dose: 70 mcg/min Ketorolac Tromethamine (Toradol) 30 mg IVP Q6 [facility] Last Admin: 11/10/16 06:00 Dose: 30 mg Levetiracetam (Keppra) 500 mg PO BID [facility] Last Admin: 11/10/16 10:46 Dose: 500 mg Methylprednisolone (Solu-Medrol) 40 mg IV Q8 [facility] Last Admin: 11/10/16 06:00 Dose: 40 mg Metoclopramide HCl (Reglan) 5 mg IVP TID [facility] Last Admin: 11/10/16 10:51 Dose: 5 mg Ondansetron HCl (Zofran Inj) 4 mg IVP Q6 PRN PRN Reason: Nausea/Vomiting Last Admin: 11/09/16 14:18 Dose: 4 mg Sertraline HCl (Zoloft) 100 mg PO DAILY [facility] Last Admin: 11/10/16 10:46 Dose: 100 mg Spironolactone (Aldactone) 25 mg PO BID [facility] Last Admin: 11/10/16 10:45 Dose: 25 mg - Labs Labs: 11/10/16 06:26 11/10/16 06:26 - Constitutional Appears: In Acute Distress - Head Exam Head Exam: ATRAUMATIC, NORMAL INSPECTION, NORMOCEPHALIC - Eye Exam Eye Exam: EOMI, Normal appearance, PERRL Pupil Exam: NORMAL ACCOMODATION, PERRL - ENT Exam ENT Exam: Mucous Membranes Moist, Normal Exam - Neck Exam Neck Exam: Full ROM, Normal Inspection. absent: Lymphadenopathy - Respiratory Exam Respiratory Exam: Accessory Muscle Use, Respiratory Distress. absent: NORMAL BREATHING PATTERN Additional comments: Venti mask. - Cardiovascular Exam Cardiovascular Exam: REGULAR RHYTHM, +S1, +S2. absent: Murmur - GI/Abdominal Exam GI & Abdominal Exam: Soft, Normal Bowel Sounds. absent: Distended, Firm, Guarding, Rigid, Tenderness, Rebound - Extremities Exam Extremities Exam: Full ROM, Normal Capillary Refill, Normal Inspection. absent : Joint Swelling, Pedal Edema - Neurological Exam Neurological Exam: Alert, Awake, CN II-XII Intact, Oriented x3 - Psychiatric Exam Psychiatric exam: Normal Affect, Normal Mood - Skin Skin Exam: Dry, Intact, Normal Color, Warm Assessment and Plan - Assessment and Plan (Free Text) Assessment: 51F with recurrent sbo, improving Plan: -Serial abd exam -ICU managment -Will continue to follow w/ you YAZMIN Caraballo
--- NOTE | 2016-11-10 12:06 | CP.CCUPN ---
<RobisonMariana - Last Filed: 11/10/16 12:03> CCU Subjective - Physician Review Events Since Last Encounter (Free Text): 11/10/16 12:04 Hypotensive overnight - required pressor support Subjective (Free Text): 11/10/16 12:04 Pt S & E this AM. Reports ab pain and SOB improved- on VTM. Had soft unformed BMs x 2 yesterday, 1 liquid stool today with large volume flatus. Denies N/V/F/C, chest pain. Critical Care Time Spent (in minutes): 60 CCU Objective - Vital Signs / Intake & Output Vital Signs (Last 4 hours): Vital Signs Pulse Resp BP Pulse Ox 11/10/16 10:48 102/83 11/10/16 08:35 80 26 H 95/62 L 100 11/10/16 08:05 98 H 23 84/54 L 100 Intake and Output (Last 8hrs): Intake & Output 11/09/16 11/10/16 11/10/16 22:59 06:59 14:59 Intake Total 930 830 685 Output Total 675 200 600 Balance 255 630 85 Intake: Intake, IV Amount 930 830 485 Right Forearm 680 770 320 Right Upper arm 250 60 165 Oral 0 Other 200 Output: Gastric Amount 25 Right Nares 25 Urine 650 200 Urine, Voided 650 200 Other 600 - Physical Exam Head: Positive for: Atraumatic, Normocephalic Pupils: Positive for: PERRL Extroacular Muscles: Positive for: EOMI Conjunctiva: Positive for: Normal Ears: Positive for: Normal Mouth: Positive for: Moist Mucous Membranes Neck: Positive for: Normal Range of Motion, Trachea Midline Respiratory/Chest: Positive for: Wheezes. Negative for: Clear to Auscultation ( coarse BS), Respiratory Distress, Accessory Muscle Use, Rales, Rhonchi Cardiovascular: Positive for: Regular Rate and Rhythm, Normal S1, S2. Negative for: Murmurs Abdomen: Positive for: Tenderness (diffuse), Distention (decreased). Negative for: Normal Bowel Sounds (hypoactive), Peritoneal Signs, Rebound, Guarding Upper Extremity: Positive for: Normal Inspection. Negative for: Cyanosis, Edema Lower Extremity: Positive for: Normal Inspection, Edema (B/L) Neurological: Positive for: GCS=15, CN II-XII Intact, Speech Normal Skin: Positive for: Warm, Dry, Normal Color. Negative for: Rashes Psychiatric: Positive for: Alert, Oriented x 3, Normal Insight, Normal Concentration - Medications Active Medications: Active Medications Generic Name Dose Route Start Last Admin Trade Name Freq PRN Reason Stop Dose Admin Acetaminophen 650 mg 11/08/16 20:26 Tylenol 325mg Tab PO Q6 PRN Fever >100.4 F Albuterol/Ipratropium 3 ml 11/09/16 02:00 11/10/16 07:44 Duoneb 3 Mg/0.5 Mg (3 Ml) Ud INH 3 ml RQ6 [facility]BINA Administration Alprazolam 2 mg 11/07/16 19:14 11/09/16 21:21 Xanax PO 2 mg HS PRN Administration Anxiety Aripiprazole 5 mg 11/07/16 10:00 11/10/16 10:46 Abilify PO 5 mg DAILY [facility]INA Administration Aspirin 81 mg 11/07/16 10:00 11/10/16 10:45 Aspirin Chewable PO 81 mg DAILY [facility]INA Administration Clopidogrel Bisulfate 75 mg 11/07/16 10:00 11/08/16 10:24 Plavix PO 75 mg DAILY [facility]INA Administration Enoxaparin Sodium 40 mg 11/07/16 10:00 11/10/16 10:44 Lovenox SC 40 mg DAILY [facility]INA Administration Famotidine 20 mg 11/07/16 10:00 11/09/16 11:23 Pepcid PO 20 mg BID [facility] Administration Famotidine 20 mg 11/09/16 17:45 11/10/16 10:46 Pepcid IVP 20 mg DAILY [facility] Administration Furosemide 40 mg 11/09/16 10:00 11/10/16 10:48 Lasix IVP 40 mg DAILY [facility] Administration Potassium Chloride/Dextrose/Sod Cl 1,000 mls @ 80 mls/hr 11/08/16 12:45 02:00 Potassium Chl 40 Meq In D5-1/2ns IV 80 mls/hr .[id number] [facility] Administration Piperacillin Sod/Tazobactam 50 mls @ 100 mls/hr 11/08/16 18:15 11/10/16 10:43 Sod 3.375 gm/ Dextrose IVPB 100 mls/hr Q8H [facility] Administration Azithromycin 500 mg/ Sodium 250 mls @ 250 mls/hr 11/09/16 12:00 11/09/16 12:20 Chloride IVPB 250 mls/hr Q24H BALBIAN Administration Vancomycin/Sodium Chloride 200 mls @ 133 mls/hr 11/09/16 18:00 11/10/16 06:00 Vancocin IVPB 11/14/16 18:01 133 mls/hr Q12H [facility] Administration Phenylephrine HCl 30 mg/ 253 mls @ 10.12 mls/hr 11/10/16 04:15 11/10/16 08:00 Dextrose IV 70 mcg/min .Q24H [facility]BINA Titration Protocol 20 MCG/MIN Ketorolac Tromethamine 30 mg 11/07/16 00:00 11/10/16 06:00 Toradol IVP 30 mg Q6 [facility] Administration Levetiracetam 500 mg 11/09/16 18:00 11/10/16 10:46 Keppra PO 500 mg BID [facility] Administration Methylprednisolone 40 mg 11/09/16 14:00 11/10/16 06:00 Solu-Medrol IV 40 mg Q8 [facility] Administration Metoclopramide HCl 5 mg 11/07/16 18:00 11/10/16 10:51 Reglan IVP 5 mg TID [facility]INA Administration Ondansetron HCl 4 mg 11/06/16 17:44 11/09/16 14:18 Zofran Inj IVP 4 mg Q6 PRN Administration Nausea/Vomiting Sertraline HCl 100 mg 11/07/16 10:00 11/10/16 10:46 Zoloft PO 100 mg DAILY [facility] Administration Spironolactone 25 mg 11/08/16 18:00 11/10/16 10:45 Aldactone PO 25 mg BID BAL[facility]INA Administration - Patient Studies Lab Studies: Microbiology Studies 11/08/16 19:58 Urine Culture - Preliminary Urine,Clean Catch Gram Negative Rosendo 11/08/16 18:00 Blood Culture - Preliminary Blood-Venous NO GROWTH AFTER 24 HOURS 11/08/16 18:30 Blood Culture - Preliminary Blood-Venous NO GROWTH AFTER 24 HOURS Lab Studies 11/10/16 11/09/16 Range/Units 06:26 14:07 WBC 9.1 (4.8-10.8) K/uL RBC 4.00 (3.80-5.20) Mil/uL Hgb 12.0 (11.0-16.0) g/dL Hct 36.6 (34.0-47.0) % MCV 91.6 (81.0-99.0) fL MCH 30.1 (27.0-31.0) pg MCHC 32.9 L (33.0-37.0) g/dL RDW 16.0 H (11.5-14.5) % Plt Count 253 (130-400) K/uL MPV 7.5 (7.2-11.7) fL Neut % (Auto) 75.1 H (50.0-75.0) % Lymph % (Auto) 19.2 L (20.0-40.0) % [place] % (Auto) 5.2 (0.0-10.0) % Eos % (Auto) 0.2 (0.0-4.0) % Baso % (Auto) 0.3 (0.0-2.0) % Neut # 6.8 (1.8-7.0) K/uL Lymph # 1.7 (1.0-4.3) K/uL [place] # 0.5 (0.0-0.8) K/uL Eos # 0.0 (0.0-0.7) K/uL Baso # 0.0 (0.0-0.2) K/uL Sodium 136 (132-148) mmol/L Potassium 3.7 (3.6-5.2) mmol/L Chloride 101 (98-107) mmol/L Carbon Dioxide 27 (22-30) mmol/L Anion Gap 12 (10-20) BUN 9 (7-17) mg/dL Creatinine 0.5 L (0.7-1.2) MG/DL Est GFR ( Amer) > 60 Est GFR (Non-Af Amer) > 60 Random Glucose 80 (65-105) mg/dL Calcium 7.7 L (8.6-10.4) mg/dl Total Bilirubin 0.3 (0.2-1.3) mg/dL AST 30 (14-36) U/L ALT 34 (9-52) U/L Alkaline Phosphatase 103 (38-126) U/L Lactate Dehydrogenase 1292 H (313-618) U/L Total Protein 4.9 L (6.3-8.3) g/dL Albumin 2.3 L D (3.5-5.0) g/dL Globulin 2.6 (2.2-3.9) gm/dL Albumin/Globulin Ratio 0.9 L (1.0-2.1) HIV 1&2 Antibody Screen Negative (NEGATIVE) Mycoplasma pneumon IgM Negative (NEGATIVE) Laboratory Results - last 24 hr 11/09/16 11/10/16 14:07 06:26 WBC 9.1 RBC 4.00 Hgb 12.0 Hct 36.6 MCV 91.6 MCH 30.1 MCHC 32.9 L RDW 16.0 H Plt Count 253 MPV 7.5 Neut % (Auto) 75.1 H Lymph % (Auto) 19.2 L [place] % (Auto) 5.2 Eos % (Auto) 0.2 Baso % (Auto) 0.3 Neut # 6.8 Lymph # 1.7 [place] # 0.5 Eos # 0.0 Baso # 0.0 Sodium 136 Potassium 3.7 Chloride 101 Carbon Dioxide 27 Anion Gap 12 BUN 9 Creatinine 0.5 L Est GFR ( Amer) > 60 Est GFR (Non-Af Amer) > 60 Random Glucose 80 Calcium 7.7 L Total Bilirubin 0.3 AST 30 ALT 34 Alkaline Phosphatase 103 Lactate Dehydrogenase 1292 H Total Protein 4.9 L Albumin 2.3 L D Globulin 2.6 Albumin/Globulin Ratio 0.9 L HIV 1&2 Antibody Screen Negative Mycoplasma pneumon IgM Negative Review of Systems - Review of Systems All systems: reviewed and no additional remarkable complaints except Review of Systems: as per HPI - Constitutional Constitutional: absent: Fever, Chills - EENT Eyes: absent: Change in Vision Nose/Mouth/Throat: absent: Sore Throat - Cardiovascular Cardiovascular: absent: Chest Pain - Gastrointestinal Gastrointestinal: Abdominal Pain. absent: Nausea, Vomiting - Genitourinary Genitourinary: absent: Dysuria - Musculoskeletal Musculoskeletal: Back Pain (chronic) - Integumentary Integumentary: absent: New Lesions - Neurological Neurological: absent: Dizziness Critical Care Progress Note - Extremities/Vascular Does the Patient have a Central Venous Catheter?: No Does the Patient need a Central Venous Catheter?: Yes (pressor support) Does the Patient have a Mishra Catheter?: No Does the Patient need a Mishra Catheter?: No - Prophylaxis GI Prophylaxis GI: Pepsid - Prophylaxis DVT Prophylaxis DVT: Lovenox - Nutrition Nutrition: Nutrition Category Date Time Status Liquid Diet [DIET] Diets 11/09/16 Lunch Active Assessment/Plan - Assessment and Plan (Free Text) Assessment: 51F w/respiratory distress in the setting of SBO w/conservative mgmt as per surgery. Pt stable overnight on VTM, continues with SOB. Will continue ICU care. Plan: Neuro Awake Alert Stable Cont home meds: Zoloft, Xanax, Abilify, Keppra Seizure precautions Monitor CVS Hypotensive overnight Placed on pressors BNP 1292 - decreased Lasix ASA Plavix held Monitor Pulm Duonebs SOlu-medrol Pulm following Nephro D5-1/2 w/40mEq KCl FU Mg level Spironolactone Monitor GI Toradol NGT w/975cc out Zofran Reglan Hepatobiliary surgery following Gen surg following- SBO mgmt as per surgery Voids on own MOnitor Heme Hgb 12 Hct 36.6 Monitor for signs of bleeding Endo Sugars WNL Monitor MSK Monitor for skin break down ID No leukocytosis Afebrile over last 24H Zosyn Azithromycin Vanco Tylenol PRN Blood cx neg x 24H HIV neg FU urine cx FU procalcitonin level FU Legionella ID following GI/DVT ppx Pepcid Lovenox Dispo: ICU care Consented for central line placement 2/2 pressors DW attending - Date & Time Date: 11/10/16 Time: 07:15 <Hunter Graham S - Last Filed: 11/10/16 17:48> CCU Objective - Vital Signs / Intake & Output Vital Signs (Last 4 hours): Vital Signs Resp BP Pulse Ox 11/10/16 14:11 24 96/36 L 100 Intake and Output (Last 8hrs): Intake & Output 11/10/16 11/10/16 11/10/16 06:59 14:59 22:59 Intake Total 830 1085 565 Output Total 200 1251 601 Balance 630 -166 -36 Intake: Intake, IV Amount 830 785 565 Right Forearm 770 320 200 Right Upper arm 60 235 Right Medial Port 70 125 Internal Jugular Right Distal Port 160 240 Internal Jugular Oral 0 0 Other 300 Output: Urine 200 650 600 Urine, Voided 200 650 600 Urine/Stool Mix 1 1 Other 600 - Medications Active Medications: Active Medications Generic Name Dose Route Start Last Admin Trade Name Freq PRN Reason Stop Dose Admin Acetaminophen 650 mg 11/08/16 20:26 Tylenol 325mg Tab PO Q6 PRN Fever >100.4 F Albuterol/Ipratropium 3 ml 11/09/16 02:00 11/10/16 07:44 Duoneb 3 Mg/0.5 Mg (3 Ml) Ud INH 3 ml RQ6 [facility] Administration Alprazolam 2 mg 11/07/16 19:14 11/10/16 13:46 Xanax PO 2 mg HS PRN Administration Anxiety Aripiprazole 5 mg 11/07/16 10:00 11/10/16 10:46 Abilify PO 5 mg DAILY [facility] Administration Aspirin 81 mg 11/07/16 10:00 11/10/16 10:45 Aspirin Chewable PO 81 mg DAILY [facility] Administration Clopidogrel Bisulfate 75 mg 11/07/16 10:00 11/08/16 10:24 Plavix PO 75 mg DAILY [facility] Administration Enoxaparin Sodium 40 mg 11/07/16 10:00 11/10/16 10:44 Lovenox SC 40 mg DAILY [facility] Administration Famotidine 20 mg 11/07/16 10:00 11/09/16 11:23 Pepcid PO 20 mg BID [facility] Administration Famotidine 20 mg 11/09/16 17:45 11/10/16 10:46 Pepcid IVP 20 mg DAILY [facility] Administration Furosemide 40 mg 11/09/16 10:00 11/10/16 10:48 Lasix IVP 40 mg DAILY [facility] Administration Hydromorphone HCl 0.5 mg 11/10/16 15:23 Dilaudid IVP Q3H PRN Pain, moderate (4-7) Potassium Chloride/Dextrose/Sod Cl 1,000 mls @ 80 mls/hr 11/08/16 12:45 17:28 Potassium Chl 40 Meq In D5-1/2ns IV 80 mls/hr .[id number] [facility] Administration Piperacillin Sod/Tazobactam 50 mls @ 100 mls/hr 11/08/16 18:15 11/10/16 17:26 Sod 3.375 gm/ Dextrose IVPB 100 mls/hr Q8H [facility] Administration Azithromycin 500 mg/ Sodium 250 mls @ 250 mls/hr 11/09/16 12:00 11/10/16 13:29 Chloride IVPB 250 mls/hr Q24H [facility] Administration Vancomycin/Sodium Chloride 200 mls @ 133 mls/hr 11/09/16 18:00 11/10/16 17:19 Vancocin IVPB 11/14/16 18:01 133 mls/hr Q12H [facility] Administration Phenylephrine HCl 30 mg/ 253 mls @ 10.12 mls/hr 11/10/16 04:15 11/10/16 16:00 Dextrose IV 90 mcg/min .Q24H [facility] Titration Protocol 20 MCG/MIN Ketorolac Tromethamine 30 mg 11/07/16 00:00 11/10/16 12:10 Toradol IVP 30 mg Q6 [facility] Administration Levetiracetam 500 mg 11/09/16 18:00 11/10/16 17:14 Keppra PO 500 mg BID [facility] Administration Methylprednisolone 40 mg 11/09/16 14:00 11/10/16 13:38 Solu-Medrol IV 40 mg Q8 [facility] Administration Metoclopramide HCl 5 mg 11/07/16 18:00 11/10/16 17:13 Reglan IVP 5 mg TID [facility] Administration Ondansetron HCl 4 mg 11/06/16 17:44 11/09/16 14:18 Zofran Inj IVP 4 mg Q6 PRN Administration Nausea/Vomiting Sertraline HCl 100 mg 11/07/16 10:00 11/10/16 10:46 Zoloft PO 100 mg DAILY [facility] Administration Spironolactone 25 mg 11/08/16 18:00 11/10/16 17:13 Aldactone PO 25 mg BID [facility] Administration - Patient Studies Lab Studies: Microbiology Studies 11/08/16 19:58 Urine Culture - Preliminary Urine,Clean Catch Gram Negative Rosendo 11/08/16 18:00 Blood Culture - Preliminary Blood-Venous NO GROWTH AFTER 24 HOURS 11/08/16 18:30 Blood Culture - Preliminary Blood-Venous NO GROWTH AFTER 24 HOURS Lab Studies 11/10/16 11/10/16 11/09/16 Range/Units 15:35 06:26 14:07 WBC 9.1 (4.8-10.8) K/uL RBC 4.00 (3.80-5.20) Mil/uL Hgb 12.0 (11.0-16.0) g/dL Hct 36.6 (34.0-47.0) % MCV 91.6 (81.0-99.0) fL MCH 30.1 (27.0-31.0) pg MCHC 32.9 L (33.0-37.0) g/dL RDW 16.0 H (11.5-14.5) % Plt Count 253 (130-400) K/uL MPV 7.5 (7.2-11.7) fL Neut % (Auto) 75.1 H (50.0-75.0) % Lymph % (Auto) 19.2 L (20.0-40.0) % [place] % (Auto) 5.2 (0.0-10.0) % Eos % (Auto) 0.2 (0.0-4.0) % Baso % (Auto) 0.3 (0.0-2.0) % Neut # 6.8 (1.8-7.0) K/uL Lymph # 1.7 (1.0-4.3) K/uL [place] # 0.5 (0.0-0.8) K/uL Eos # 0.0 (0.0-0.7) K/uL Baso # 0.0 (0.0-0.2) K/uL Sodium 136 (132-148) mmol/L Potassium 3.7 (3.6-5.2) mmol/L Chloride 101 (98-107) mmol/L Carbon Dioxide 27 (22-30) mmol/L Anion Gap 12 (10-20) BUN 9 (7-17) mg/dL Creatinine 0.5 L (0.7-1.2) MG/DL Est GFR ( Amer) > 60 Est GFR (Non-Af Amer) > 60 Random Glucose 80 (65-105) mg/dL Calcium 7.7 L (8.6-10.4) mg/dl Magnesium 1.7 (1.6-2.3) mg/dL Total Bilirubin 0.3 (0.2-1.3) mg/dL AST 30 (14-36) U/L ALT 34 (9-52) U/L Alkaline Phosphatase 103 (38-126) U/L Lactate Dehydrogenase 1292 H (313-618) U/L Total Protein 4.9 L (6.3-8.3) g/dL Albumin 2.3 L D (3.5-5.0) g/dL Globulin 2.6 (2.2-3.9) gm/dL Albumin/Globulin Ratio 0.9 L (1.0-2.1) Procalcitonin 0.56 H (0.19-0.49) NG/ML HIV 1&2 Antibody Screen Negative (NEGATIVE) Mycoplasma pneumon IgM Negative (NEGATIVE) Laboratory Results - last 24 hr 11/09/16 11/10/16 11/10/16 14:07 06:26 15:35 WBC 9.1 RBC 4.00 Hgb 12.0 Hct 36.6 MCV 91.6 MCH 30.1 MCHC 32.9 L RDW 16.0 H Plt Count 253 MPV 7.5 Neut % (Auto) 75.1 H Lymph % (Auto) 19.2 L [place] % (Auto) 5.2 Eos % (Auto) 0.2 Baso % (Auto) 0.3 Neut # 6.8 Lymph # 1.7 [place] # 0.5 Eos # 0.0 Baso # 0.0 Sodium 136 Potassium 3.7 Chloride 101 Carbon Dioxide 27 Anion Gap 12 BUN 9 Creatinine 0.5 L Est GFR ( Amer) > 60 Est GFR (Non-Af Amer) > 60 Random Glucose 80 Calcium 7.7 L Magnesium 1.7 Total Bilirubin 0.3 AST 30 ALT 34 Alkaline Phosphatase 103 Lactate Dehydrogenase 1292 H Total Protein 4.9 L Albumin 2.3 L D Globulin 2.6 Albumin/Globulin Ratio 0.9 L Procalcitonin 0.56 H HIV 1&2 Antibody Screen Negative Mycoplasma pneumon IgM Negative Critical Care Progress Note - Nutrition Nutrition: Nutrition Category Date Time Status NPO Diet [DIET] Diets 11/10/16 Lunch Active Attending/Attestation - Attestation I have personally seen and examined this patient.: Yes I have fully participated in the care of the patient.: Yes I have reviewed all pertinent clinical information: Yes Notes (Text): 11/10/16 17:47 patient seen and examined in the intensive care unit. Case discussed with house staff in the morning rounds. Patient earlier had large bowel movement with much less abdominal distention and discomfort Remains on Ventimask for hypoxemia Patient states breathing is better Afebrile On antibiotics awake and responsive Triple-lumen catheter inserted in right internal jugular vein under aseptic conditions and local anesthesia Seldinger technique without any complications. Chest x-ray done showed TLC in good position
[2016-11-10] MEDS: Azithromycin 500 MG in Sodium Chloride 0.9% 250 ML IVPB SCH (13:29)
--- NOTE | 2016-11-10 15:19 | RAD ---
HISTORY: central line placement COMPARISON: 11/09/2016 FINDINGS: LUNGS: NG tube extending into the stomach. Right central venous catheter extending into the right SVC. Persistent diffuse confluent patchy bilateral airspace opacities throughout both lungs with associated prominent venous congestion. PLEURA: As above. CARDIOVASCULAR: Normal. OSSEOUS STRUCTURES: No significant abnormalities. VISUALIZED UPPER ABDOMEN: Surgical clips in the upper abdomen. OTHER FINDINGS: None. IMPRESSION: NG tube extending into the stomach. Right central venous catheter extending into the right SVC. Persistent diffuse confluent patchy bilateral airspace opacities throughout both lungs with associated prominent venous congestion.
--- NOTE | 2016-11-10 23:39 | CP.PCM.PN ---
Subjective - Date & Time of Evaluation Date of Evaluation: 11/10/16 Time of Evaluation: 23:38 - Subjective Subjective: . CHIEF COMPLAINTS TODAY : patient in ICU, Afebrile,vs as noted SOB+VE ,ON BIPAP DROWSY, unable to answer questions ROS. on observation HEENT : N. Resp : No cough, +ve wheezing , no pleuritic CP ,or hemoptysis Cardio : No anginal CP, PND, orthopnea, palpitation GI : +VE ABDOMINAL PAIN, NO n/v ,diarrhea or GI bleeding . HAND OR MACHINE PASTER : No headache, vertigo, focal deficit / Musculoskel : No joint swelling , Derm : No rash Psych : Normal affect. Ext : No swelling ,calf pain PE. Pt. is drowsy on BiPAP V.S As noted in the chart Head ,ear nose,throat and eyes : Normal. Neck : Supple with normal carotids. Lungs: BILATERAL RHONCHI AND EXPIRATORY WHEEZE.. Heart : S1 & S2 normal with S4. No murmur. Abd : MILDLY DISTENDED , GENERALIZED TENDERNESS with HYPOACTIVE bowel sounds. Neuro : Moves all ext. with no localized deficit. Ext : No edema with intact pulses.Non tender calves Derm : No rashes or decubitus ulcer. LABS/RADIOLOGY: wbc 9.1 cREATININE 0.5/bun 9 LDH 1292 HIGH ?? pRObnp 3490 HIGH URINE CULTURE SENSITIVITY 11/08/16 +VE GNR BLOOD CULTURES 11/08 NEGATIVE FOR 48 HOURS Objective - Vital Signs/Intake and Output Vital Signs (last 24 hours): Temp Pulse Resp BP Pulse Ox 97.6 F 100 H 22 86/56 L 100 11/10/16 08:00 11/10/16 21:35 11/10/16 21:35 11/10/16 21:35 11/10/16 21:35 Intake and Output: 11/10/16 11/11/16 18:59 06:59 Intake Total 1775 125 Output Total 1852 300 Balance -77 -175 - Medications Medications: Current Medications Acetaminophen (Tylenol 325mg Tab) 650 mg PO Q6 PRN PRN Reason: Fever >100.4 F Albuterol/Ipratropium (Duoneb 3 Mg/0.5 Mg (3 Ml) Ud) 3 ml INH RQ6 [facility]BINA Last Admin: 11/10/16 20:35 Dose: 3 ml Alprazolam (Xanax) 2 mg PO HS PRN PRN Reason: Anxiety Last Admin: 11/10/16 21:26 Dose: 2 mg Aripiprazole (Abilify) 5 mg PO DAILY [facility] Last Admin: 11/10/16 10:46 Dose: 5 mg Aspirin (Aspirin Chewable) 81 mg PO DAILY [facility] Last Admin: 11/10/16 10:45 Dose: 81 mg Clopidogrel Bisulfate (Plavix) 75 mg PO DAILY [facility] Last Admin: 11/08/16 10:24 Dose: 75 mg Enoxaparin Sodium (Lovenox) 40 mg SC DAILY [facility] Last Admin: 11/10/16 10:44 Dose: 40 mg Famotidine (Pepcid) 20 mg PO BID [facility] Last Admin: 11/09/16 11:23 Dose: 20 mg Famotidine (Pepcid) 20 mg IVP DAILY [facility] Last Admin: 11/10/16 10:46 Dose: 20 mg Furosemide (Lasix) 40 mg IVP DAILY [facility] Last Admin: 11/10/16 10:48 Dose: 40 mg Hydromorphone HCl (Dilaudid) 0.5 mg IVP Q3H PRN PRN Reason: Pain, moderate (4-7) Potassium Chloride/Dextrose/Sod Cl (Potassium Chl 40 Meq In D5-1/2ns) 1,000 mls @ 80 mls/hr IV .[id number] [facility] Last Admin: 11/10/16 17:28 Dose: 80 mls/hr Piperacillin Sod/Tazobactam (Sod 3.375 gm/ Dextrose) 50 mls @ 100 mls/hr IVPB Q8H [facility] Last Admin: 11/10/16 17:26 Dose: 100 mls/hr Azithromycin 500 mg/ Sodium (Chloride) 250 mls @ 250 mls/hr IVPB Q24H [facility] Last Admin: 11/10/16 13:29 Dose: 250 mls/hr Vancomycin/Sodium Chloride (Vancocin) 200 mls @ 133 mls/hr IVPB Q12H [facility] Stop: 11/14/16 18:01 Last Admin: 11/10/16 17:19 Dose: 133 mls/hr Phenylephrine HCl 30 mg/ (Dextrose) 253 mls @ 10.12 mls/hr IV .Q24H [facility]; 20 MCG /MIN PRN Reason: Protocol Last Admin: 11/10/16 21:35 Dose: 45.54 mls/hr Ketorolac Tromethamine (Toradol) 30 mg IVP Q6 [facility] Last Admin: 11/10/16 18:13 Dose: 30 mg Levetiracetam (Keppra) 500 mg PO BID [facility] Last Admin: 11/10/16 17:14 Dose: 500 mg Methylprednisolone (Solu-Medrol) 40 mg IV Q8 [facility] Last Admin: 11/10/16 21:26 Dose: 40 mg Metoclopramide HCl (Reglan) 5 mg IVP TID [facility] Last Admin: 11/10/16 17:13 Dose: 5 mg Ondansetron HCl (Zofran Inj) 4 mg IVP Q6 PRN PRN Reason: Nausea/Vomiting Last Admin: 11/09/16 14:18 Dose: 4 mg Sertraline HCl (Zoloft) 100 mg PO DAILY [facility] Last Admin: 11/10/16 10:46 Dose: 100 mg Spironolactone (Aldactone) 25 mg PO BID [facility] Last Admin: 11/10/16 17:13 Dose: 25 mg - Labs Labs: 11/10/16 06:26 11/10/16 06:26 Assessment and Plan - Assessment and Plan (Free Text) Assessment: IMPRESSION; > RESPIRATORY FAILURE/HYPOXIA BILATERAL PNEUMONIA R/O ATYPICAL PNEUMONIA.(HISTORY OF CHANTELL-PARAPSILOSIS PNEUMONIA SEP 2016 S/FOB ) > EXACERBATION OF COPD. > ABDOMINAL PAIN -PARTIAL SMALL BOWEL OBSTRUCTION. (CT ABD /PELVIS-SEE REPORT ) HX OF EXPLORATORY LAP/LYLE AUG 2016. > UROSEPSIS +VE GRAM-NEGATIVE RADHA. > CHF./CAD. >HISTORY OF SERONEGATIVE LUPUS ON PLAQUENIL. >DEPRESSION/ANXIETY. PLAN; FOLLOW-UP CULTURES TO ADJUST ANTIBIOTICS. CONTINUE iv zOSYN 3.375 EVERY 8 HOURLY 11/08/16 cONTINUE iv zITHROMAX 500 od DAILY 11/09/16. DC iv VANCOMYCIN 1 G EVERY 12 HOURLY. 11/09/16. Start IV Bactrim 240 mg TMP/SMX iv PIGGYBACK EVERY 8 HOURLY FOR ?PCP/[employer] COVERAGE 11/10/16 fOLLOW-UP RENAL FUNCTIONS CLOSELY. sURGERY ON BOARD. PRESENTLY TREATING CONSERVATIVELY FOR PARTIAL SMALL BOWEL OBSTRUCTION.
[2016-11-11] MEDS: Albuterol-Ipratrop 3 mg / 0.5 (3 ml) UD INH SCH ×4 (01:06→20:29)
[2016-11-11] MEDS: Piperacillin/Tazobact 3.375 GM in Dextrose 5% In Water 50 ML IVPB SCH ×3 (02:15→17:16)
[2016-11-11] MEDS: Phenylephrine 30 MG in Dextrose 5% In Water 250 ML IV SCH ×3 (03:00→13:25)
[2016-11-11] MEDS: Sulfamethoxazole/Trimethoprim 240 MG in Dextrose 5% In Water 250 ML IVPB SCH ×3 (03:30→20:17)
[2016-11-11 06:43] LABS: BASO % 0.1 % (0.0-2.0); HEMATOCRIT 30.9 % (34.0-47.0); LYMPH # 0.5 K/uL (1.0-4.3); LYMPH % 6.6 % (20.0-40.0); MEAN CELL VOLUME 90.9 fL (81.0-99.0); MEAN CORPUSCULAR HEMOGLOBIN 29.8 pg (27.0-31.0); MEAN CORPUSCULAR HGB CONC 32.8 g/dL (33.0-37.0); MEAN PLATELET VOLUME 7.2 fL (7.2-11.7); MONO # 0.2 K/uL (0.0-0.8); MONO % 2.6 % (0.0-10.0); PLATELET COUNT 271 K/uL (130-400); RED CELL DISTRIBUTION WIDTH 15.5 % (11.5-14.5); WHITE BLOOD COUNT 8.1 K/uL (4.8-10.8)
[2016-11-11 07:02] LABS: CHLORIDE 101 mmol/L (98-107)
[2016-11-11 07:03] LABS: POTASSIUM 3.7 mmol/L (3.6-5.2); SODIUM 136 mmol/L (132-148)
[2016-11-11 07:05] LABS: BILIRUBIN,TOTAL 0.4 mg/dL (0.2-1.3); CARBON DIOXIDE 28 mmol/L (22-30); GFR AFRICAN-AMERICAN > 60
[2016-11-11 07:06] LABS: ALB/GLOB RATIO 0.8 (1.0-2.1); ALKALINE PHOSPHATASE 76 U/L (38-126); ALT/SGPT 27 U/L (9-52); AST/SGOT 23 U/L (14-36); BLOOD UREA NITROGEN 9 mg/dL (7-17); CALCIUM 7.6 mg/dl (8.6-10.4); GLUCOSE,RANDOM 84 mg/dL (65-105); MAGNESIUM 1.7 mg/dL (1.6-2.3); PHOSPHOROUS 4.9 mg/dL (2.5-4.5); TOTAL PROTEIN 4.7 g/dL (6.3-8.3)
[2016-11-11] MEDS: Potassium Chl 40 mEq in D5-1/2 1,000 ML IV SCH ×2 (07:22→09:31)
[2016-11-11 08:36] LABS: NEUTROPHIL 85 % (50-75); TOTAL CELLS COUNTED 100
--- NOTE | 2016-11-11 09:07 | CP.PCM.PN ---
Subjective - Date & Time of Evaluation Date of Evaluation: 11/11/16 Time of Evaluation: 09:02 - Subjective Subjective: Surgery: Dr. Gutierrez, covering for Dr. Caraballo Patient remains in ICU 2/2/ poor respiratory status. Patient requiring nonrebreather for oxygenation. Patient denies any pain in the abdomen. she reports flatus. Denies any n/v. Per nursing, NGT remained on suction w/ minimal output. Objective - Vital Signs/Intake and Output Vital Signs (last 24 hours): Temp Pulse Resp BP Pulse Ox 97.4 F L 88 41 H 97/45 L 100 11/11/16 08:00 11/11/16 08:37 11/11/16 08:37 11/11/16 08:37 11/11/16 08:37 Intake and Output: 11/11/16 11/11/16 06:59 18:59 Intake Total 1670 250 Output Total 1250 Balance 420 250 - Medications Medications: Current Medications Acetaminophen (Tylenol 325mg Tab) 650 mg PO Q6 PRN PRN Reason: Fever >100.4 F Albuterol/Ipratropium (Duoneb 3 Mg/0.5 Mg (3 Ml) Ud) 3 ml INH RQ6 [facility] Last Admin: 11/11/16 08:20 Dose: 3 ml Alprazolam (Xanax) 2 mg PO HS PRN PRN Reason: Anxiety Last Admin: 11/10/16 21:26 Dose: 2 mg Aripiprazole (Abilify) 5 mg PO DAILY [facility] Last Admin: 11/10/16 10:46 Dose: 5 mg Aspirin (Aspirin Chewable) 81 mg PO DAILY [facility] Last Admin: 11/10/16 10:45 Dose: 81 mg Clopidogrel Bisulfate (Plavix) 75 mg PO DAILY [facility] Last Admin: 11/08/16 10:24 Dose: 75 mg Enoxaparin Sodium (Lovenox) 40 mg SC DAILY [facility] Last Admin: 11/10/16 10:44 Dose: 40 mg Famotidine (Pepcid) 20 mg PO BID [facility] Last Admin: 11/09/16 11:23 Dose: 20 mg Famotidine (Pepcid) 20 mg IVP DAILY [facility] Last Admin: 11/10/16 10:46 Dose: 20 mg Furosemide (Lasix) 40 mg IVP DAILY [facility] Last Admin: 11/10/16 10:48 Dose: 40 mg Hydromorphone HCl (Dilaudid) 0.5 mg IVP Q3H PRN PRN Reason: Pain, moderate (4-7) Potassium Chloride/Dextrose/Sod Cl (Potassium Chl 40 Meq In D5-1/2ns) 1,000 mls @ 80 mls/hr IV .[id number] [facility] Last Admin: 11/11/16 07:22 Dose: Not Given Piperacillin Sod/Tazobactam (Sod 3.375 gm/ Dextrose) 50 mls @ 100 mls/hr IVPB Q8H [facility] Last Admin: 11/11/16 02:15 Dose: 100 mls/hr Azithromycin 500 mg/ Sodium (Chloride) 250 mls @ 250 mls/hr IVPB Q24H [facility] Last Admin: 11/10/16 13:29 Dose: 250 mls/hr Phenylephrine HCl 30 mg/ (Dextrose) 253 mls @ 10.12 mls/hr IV .Q24H [facility]; 20 MCG /MIN PRN Reason: Protocol Last Admin: 11/11/16 07:21 Dose: Not Given Trimethoprim/Sulfamethoxazole (240 mg/ Dextrose) 250 mls @ 200 mls/hr IVPB Q8H [facility] Last Admin: 11/11/16 03:30 Dose: 200 mls/hr Ketorolac Tromethamine (Toradol) 30 mg IVP Q6 [facility] Last Admin: 11/11/16 06:15 Dose: 30 mg Levetiracetam (Keppra) 500 mg PO BID [facility] Last Admin: 11/10/16 17:14 Dose: 500 mg Methylprednisolone (Solu-Medrol) 40 mg IV Q8 [facility] Last Admin: 11/11/16 06:15 Dose: 40 mg Metoclopramide HCl (Reglan) 5 mg IVP TID [facility] Last Admin: 11/10/16 17:13 Dose: 5 mg Ondansetron HCl (Zofran Inj) 4 mg IVP Q6 PRN PRN Reason: Nausea/Vomiting Last Admin: 11/09/16 14:18 Dose: 4 mg Sertraline HCl (Zoloft) 100 mg PO DAILY [facility] Last Admin: 11/10/16 10:46 Dose: 100 mg Spironolactone (Aldactone) 25 mg PO BID [facility] Last Admin: 11/10/16 17:13 Dose: 25 mg - Labs Labs: 11/11/16 06:31 11/11/16 06:31 - Constitutional Appears: No Acute Distress, Chronically Ill - Head Exam Head Exam: ATRAUMATIC, NORMOCEPHALIC - Eye Exam Eye Exam: EOMI, Normal appearance - ENT Exam ENT Exam: Mucous Membranes Dry Additional comments: NGT in place - Respiratory Exam Additional comments: some accessory muscle use for breathing on nonrebreather - Cardiovascular Exam Cardiovascular Exam: REGULAR RHYTHM. absent: Tachycardia - GI/Abdominal Exam GI & Abdominal Exam: Distended, Soft. absent: Guarding, Rigid, Tenderness, Rebound Assessment and Plan - Assessment and Plan (Free Text) Assessment: 51 y/o F w/ abdominal pain 2/2 SBO Plan: -cont pulmonary care per ICU -d/c NGT -ok for clears -serial abdominal exams -SBO overall appears resolved -further recs per attending AKWhite PGY1
[2016-11-11] MEDS: levETIRAcetam 100 mg/ml (5ml) Oral Syringe PO SCH ×2 (09:28→17:16)
[2016-11-11] MEDS: Enoxaparin 40 mg Syringe SC SCH (09:29)
--- NOTE | 2016-11-11 10:40 | RAD ---
HISTORY: copd COMPARISON: Chest x-ray performed 11/10/16, noncontrast CT chest abdomen pelvis performed 11/09/16 TECHNIQUE: Chest, one view. FINDINGS: Right IJ approach central venous catheter extends to the cavoatrial junction. Interval removal of nasogastric tube. LUNGS: Persistent diffuse confluent patchy bilateral airspace opacities throughout both lungs with associated pulmonary venous congestion. Right-sided pleural parenchymal opacities. No definite pneumothorax. Please note that chest x-ray has limited sensitivity for the detection of pulmonary masses. CARDIOVASCULAR: Cardiomegaly. OSSEOUS STRUCTURES: Osseous demineralization. Degenerative changes. VISUALIZED UPPER ABDOMEN: Unremarkable. OTHER FINDINGS: None. IMPRESSION: Right IJ approach central venous catheter extends to the cavoatrial junction. Interval removal of nasogastric tube. Persistent diffuse confluent patchy bilateral airspace opacities throughout both lungs with associated pulmonary venous congestion. Suspect mild increase in pulmonary venous congestion. Stable appearing right-sided pleural parenchymal opacities.
[2016-11-11] MEDS: Azithromycin 500 MG in Sodium Chloride 0.9% 250 ML IVPB SCH (11:49)
--- NOTE | 2016-11-11 12:40 | CP.CCUPN ---
Addendum entered and electronically signed by Mariaan Robison DO 11/11/16 14:08: Pt w/tachypenia and tachycardia, using more accessory muscles to work, now c/o of substernal CP- sent IVÁN, ordered EKG, placing pt on BiPap. Will FU w/ABG. Original Note: <Mariana Robison - Last Filed: 11/11/16 13:33> CCU Subjective - Physician Review Events Since Last Encounter (Free Text): 11/11/16 12:38 Pt continues on Bipap, pressors overnight. Subjective (Free Text): 11/10/16 12:04 Pt S & E this AM. Reports ab pain and SOB improved- on VTM. Had soft unformed BMs x 2 yesterday, 1 liquid stool today with large volume flatus. Denies N/V/F/C, chest pain. 11/11/16 12:38 Pt S & E this AM. Pt reports having 3 liquid stools yesterday, continues to require VTM 2/2 SOB, insomnia. Abdominal pain much improved, abdominal distention much improved. Denies N/V/F/C, chest pain. Critical Care Time Spent (in minutes): 60 CCU Objective - Vital Signs / Intake & Output Vital Signs (Last 4 hours): Vital Signs Pulse Resp BP Pulse Ox 11/11/16 09:37 84 40 H 89/62 L 100 11/11/16 09:29 97/45 L 11/11/16 08:46 93 H 43 H 100 Intake and Output (Last 8hrs): Intake & Output 11/10/16 11/11/16 11/11/16 22:59 06:59 14:59 Intake Total 1190 1170 790 Output Total 901 950 4 Balance 289 220 786 Intake: Intake, IV Amount 1190 1170 790 Right Forearm 200 Right Medial Port 350 360 170 Internal Jugular Right Distal Port 640 810 620 Internal Jugular Oral 0 Output: Gastric Amount 400 Right Nares 400 Urine 600 550 Urine, Voided 600 550 Urine/Stool Mix 1 4 Other 300 Other: # Voids Urine, Voided 1 1 # Bowel Movements 1 - Physical Exam Head: Positive for: Atraumatic, Normocephalic Pupils: Positive for: PERRL Extroacular Muscles: Positive for: EOMI Conjunctiva: Positive for: Normal Ears: Positive for: Normal Mouth: Positive for: Moist Mucous Membranes Neck: Positive for: Normal Range of Motion, Trachea Midline Respiratory/Chest: Positive for: Accessory Muscle Use, Wheezes, Other (on VTM ) . Negative for: Clear to Auscultation (coarse BS), Good Air Exchange (decreased ), Respiratory Distress, Rales, Rhonchi Cardiovascular: Positive for: Regular Rate and Rhythm, Normal S1, S2. Negative for: Murmurs Abdomen: Negative for: Tenderness, Distention, Normal Bowel Sounds (hypoactive) , Peritoneal Signs, Rebound, Guarding Upper Extremity: Positive for: Normal Inspection. Negative for: Cyanosis, Edema Lower Extremity: Positive for: Normal Inspection, Edema (B/L, minimal) Neurological: Positive for: GCS=15, CN II-XII Intact, Speech Normal Skin: Positive for: Warm, Dry, Normal Color. Negative for: Rashes Psychiatric: Positive for: Alert, Oriented x 3, Normal Insight, Normal Concentration - Medications Active Medications: Active Medications Generic Name Dose Route Start Last Admin Trade Name Freq PRN Reason Stop Dose Admin Acetaminophen 650 mg 11/08/16 20:26 Tylenol 325mg Tab PO Q6 PRN Fever >100.4 F Albuterol/Ipratropium 3 ml 11/09/16 02:00 11/11/16 08:20 Duoneb 3 Mg/0.5 Mg (3 Ml) Ud INH 3 ml RQ6 [facility] Administration Alprazolam 2 mg 11/07/16 19:14 11/10/16 21:26 Xanax PO 2 mg HS PRN Administration Anxiety Aripiprazole 5 mg 11/07/16 10:00 11/11/16 09:28 Abilify PO 5 mg DAILY [facility] Administration Aspirin 81 mg 11/07/16 10:00 11/11/16 09:28 Aspirin Chewable PO 81 mg DAILY [facility] Administration Clopidogrel Bisulfate 75 mg 11/07/16 10:00 11/08/16 10:24 Plavix PO 75 mg DAILY [facility] Administration Enoxaparin Sodium 40 mg 11/07/16 10:00 11/11/16 09:29 Lovenox SC 40 mg DAILY [facility] Administration Famotidine 20 mg 11/07/16 10:00 11/09/16 11:23 Pepcid PO 20 mg BID [facility] Administration Furosemide 40 mg 11/09/16 10:00 11/11/16 09:29 Lasix IVP 40 mg DAILY [facility] Administration Hydromorphone HCl 0.5 mg 11/10/16 15:23 Dilaudid IVP Q3H PRN Pain, moderate (4-7) Potassium Chloride/Dextrose/Sod Cl 1,000 mls @ 80 mls/hr 11/08/16 12:45 09:31 Potassium Chl 40 Meq In D5-1/2ns IV 80 mls/hr .[id number] [facility] Administration Piperacillin Sod/Tazobactam 50 mls @ 100 mls/hr 11/08/16 18:15 11/11/16 09:30 Sod 3.375 gm/ Dextrose IVPB 100 mls/hr Q8H [facility] Administration Azithromycin 500 mg/ Sodium 250 mls @ 250 mls/hr 11/09/16 12:00 11/11/16 11:49 Chloride IVPB 250 mls/hr Q24H [facility] Administration Phenylephrine HCl 30 mg/ 253 mls @ 10.12 mls/hr 11/10/16 04:15 11/11/16 07:21 Dextrose IV Not Given .Q24H [facility] Protocol 20 MCG/MIN Trimethoprim/Sulfamethoxazole 250 mls @ 200 mls/hr 11/11/16 03:30 11/11/16 11: 47 240 mg/ Dextrose IVPB 200 mls/hr Q8H [facility] Administration Ketorolac Tromethamine 30 mg 11/07/16 00:00 11/11/16 12:09 Toradol IVP 30 mg Q6 [facility] Administration Levetiracetam 500 mg 11/09/16 18:00 11/11/16 09:28 Keppra PO 500 mg BID [facility] Administration Methylprednisolone 40 mg 11/09/16 14:00 11/11/16 06:15 Solu-Medrol IV 40 mg Q8 [facility] Administration Metoclopramide HCl 5 mg 11/07/16 18:00 11/11/16 09:30 Reglan IVP 5 mg TID [facility] Administration Ondansetron HCl 4 mg 11/06/16 17:44 11/09/16 14:18 Zofran Inj IVP 4 mg Q6 PRN Administration Nausea/Vomiting Saccharomyces Boulardii 250 mg 11/11/16 12:30 Florastor PO DAILY [facility] Sertraline HCl 100 mg 11/07/16 10:00 11/11/16 09:30 Zoloft PO 100 mg DAILY [facility] Administration Spironolactone 25 mg 11/08/16 18:00 11/11/16 09:28 Aldactone PO 25 mg BID [facility] Administration - Patient Studies Lab Studies: Microbiology Studies 11/08/16 19:58 Urine Culture - Final Urine,Clean Catch Klebsiella Pneumoniae Ssp Pneu 11/08/16 18:00 Blood Culture - Preliminary Blood-Venous NO GROWTH AFTER 48 HOURS 11/08/16 18:30 Blood Culture - Preliminary Blood-Venous NO GROWTH AFTER 48 HOURS 11/09/16 Unknown MRSA Culture (Admit) - Final Naris MRSA NOT DETECTED Lab Studies 11/11/16 11/10/16 Range/Units 06:31 15:35 WBC 8.1 (4.8-10.8) K/uL RBC 3.40 L (3.80-5.20) Mil/uL Hgb 10.1 L (11.0-16.0) g/dL Hct 30.9 L (34.0-47.0) % MCV 90.9 (81.0-99.0) fL MCH 29.8 (27.0-31.0) pg MCHC 32.8 L (33.0-37.0) g/dL RDW 15.5 H (11.5-14.5) % Plt Count 271 (130-400) K/uL MPV 7.2 (7.2-11.7) fL Neut % (Auto) 90.7 H (50.0-75.0) % Lymph % (Auto) 6.6 L (20.0-40.0) % Kendall % (Auto) 2.6 (0.0-10.0) % Eos % (Auto) 0.0 (0.0-4.0) % Baso % (Auto) 0.1 (0.0-2.0) % Neut # 7.3 H (1.8-7.0) K/uL Lymph # 0.5 L (1.0-4.3) K/uL Kendall # 0.2 (0.0-0.8) K/uL Eos # 0.0 (0.0-0.7) K/uL Baso # 0.0 (0.0-0.2) K/uL Neutrophils % (Manual) 85 H (50-75) % Band Neutrophils % 3 H (0-2) % Lymphocytes % (Manual) 11 L (20-40) % Monocytes % (Manual) 1 (0-10) % Platelet Estimate Normal (NORMAL) Hypochromasia (manual) Slight Poikilocytosis (manual Slight Anisocytosis (manual) Slight Sodium 136 (132-148) mmol/L Potassium 3.7 (3.6-5.2) mmol/L Chloride 101 (98-107) mmol/L Carbon Dioxide 28 (22-30) mmol/L Anion Gap 10 (10-20) BUN 9 (7-17) mg/dL Creatinine 0.7 (0.7-1.2) MG/DL Est GFR ( Amer) > 60 Est GFR (Non-Af Amer) > 60 Random Glucose 84 (65-105) mg/dL Calcium 7.6 L (8.6-10.4) mg/dl Phosphorus 4.9 H (2.5-4.5) mg/dL Magnesium 1.7 1.7 (1.6-2.3) mg/dL Total Bilirubin 0.4 (0.2-1.3) mg/dL AST 23 (14-36) U/L ALT 27 (9-52) U/L Alkaline Phosphatase 76 (38-126) U/L Total Protein 4.7 L (6.3-8.3) g/dL Albumin 2.1 L (3.5-5.0) g/dL Globulin 2.6 (2.2-3.9) gm/dL Albumin/Globulin Ratio 0.8 L (1.0-2.1) Procalcitonin 0.56 H (0.19-0.49) NG/ML Random Vancomycin 13.52 ug/mL Laboratory Results - last 24 hr 11/10/16 11/11/16 15:35 06:31 WBC 8.1 RBC 3.40 L Hgb 10.1 L Hct 30.9 L MCV 90.9 MCH 29.8 MCHC 32.8 L RDW 15.5 H Plt Count 271 MPV 7.2 Neut % (Auto) 90.7 H Lymph % (Auto) 6.6 L Kendall % (Auto) 2.6 Eos % (Auto) 0.0 Baso % (Auto) 0.1 Neut # 7.3 H Lymph # 0.5 L Kendall # 0.2 Eos # 0.0 Baso # 0.0 Neutrophils % (Manual) 85 H Band Neutrophils % 3 H Lymphocytes % (Manual) 11 L Monocytes % (Manual) 1 Platelet Estimate Normal Hypochromasia (manual) Slight Poikilocytosis (manual Slight Anisocytosis (manual) Slight Sodium 136 Potassium 3.7 Chloride 101 Carbon Dioxide 28 Anion Gap 10 BUN 9 Creatinine 0.7 Est GFR ( Amer) > 60 Est GFR (Non-Af Amer) > 60 Random Glucose 84 Calcium 7.6 L Phosphorus 4.9 H Magnesium 1.7 1.7 Total Bilirubin 0.4 AST 23 ALT 27 Alkaline Phosphatase 76 Total Protein 4.7 L Albumin 2.1 L Globulin 2.6 Albumin/Globulin Ratio 0.8 L Procalcitonin 0.56 H Random Vancomycin 13.52 Review of Systems - Constitutional Constitutional: absent: Fever, Chills - EENT Nose/Mouth/Throat: absent: Sore Throat - Cardiovascular Cardiovascular: absent: Chest Pain - Respiratory Respiratory: Wheezing - Gastrointestinal Gastrointestinal: Abdominal Pain (decreased), Change in Bowel Habits (liquid stools). absent: Nausea, Vomiting - Musculoskeletal Musculoskeletal: Back Pain (chronic) - Integumentary Integumentary: UNREMARKABLE - Neurological Neurological: UNREMARKABLE - Psychiatric Psychiatric: UNREMARKABLE Critical Care Progress Note - Ventilator Checklist DVT Prophylaxis: Yes Oral Care with Chlorhexidine Gluconate {CHG}: Yes - Extremities/Vascular Does the Patient have a Central Venous Catheter?: Yes Does the Patient need a Central Venous Catheter?: Yes (pressors) Does the Patient have a Mishra Catheter?: No Does the Patient need a Mishra Catheter?: No - Prophylaxis GI Prophylaxis GI: Pepsid - Prophylaxis DVT Prophylaxis DVT: Lovenox - Nutrition Nutrition: Nutrition Category Date Time Status Liquid Diet [DIET] Diets 11/11/16 Breakfast Active Assessment/Plan - Assessment and Plan (Free Text) Assessment: 51F w/respiratory distress in the setting of SBO w/conservative mgmt as per surgery. Pt requiring VTM overnight, still with SOB. Will continue ICU care. Plan: Neuro Awake Alert Stable Cont home meds: Zoloft, Xanax, Abilify, Keppra Seizure precautions Monitor CVS Pressors Lasix d/c'd ASA Plavix still held Monitor Pulm Duonebs SOlu-medrol Pulm following CXR - persistent diffuse confluent patchy B/L airspace opacities throughout both lungs w/associated pulmonary venous congestion. Suspect mild increase in pulmonary venous congestion. Stable appearing R-sided pleural parenchymal opacities. Nephro D5-1/2 w/40mEq KCl Electrolytes WNL Spironolactone Monitor GI Started liquid diet Liquid stools Probiotic started Toradol Dilaudid NGT d/c'd Zofran Reglan Hepatobiliary surgery following Gen surg following- SBO mgmt as per surgery Voids on own MOnitor Heme Hgb 10.1 Hct 30.9 Monitor for signs of bleeding Endo Sugars WNL Monitor MSK Monitor for skin break down ID No leukocytosis Afebrile over last 24H Zosyn Azithromycin Vanco - d/c'd Bactrim started Tylenol PRN Blood cx neg x 48H HIV neg Urine cx - Klebsiella PNA Procalcitonin level- 0.56 FU Legionella ID following GI/DVT ppx Pepcid Lovenox Dispo: Continue ICU care DW attending - Date & Time Date: 11/11/16 Time: 07:15 <Hunter Graham S - Last Filed: 11/11/16 15:20> CCU Objective - Vital Signs / Intake & Output Vital Signs (Last 4 hours): Vital Signs Temp Pulse Resp BP Pulse Ox 11/11/16 14:26 99 H 11/11/16 13:25 104 H 32 H 96/61 L 94 L 11/11/16 13:00 108 H 25 H 11/11/16 12:37 92 H 28 H 96/61 L 11/11/16 12:00 97.3 F L 87 37 H 87 L 11/11/16 11:36 103 H 27 H 97/56 L Intake and Output (Last 8hrs): Intake & Output 11/11/16 11/11/16 11/11/16 06:59 14:59 22:59 Intake Total 1170 1090 25 Output Total 950 5 1 Balance 220 1085 24 Intake: Intake, IV Amount 1170 1090 25 Right Medial Port 360 220 25 Internal Jugular Right Distal Port 810 870 Internal Jugular Output: Gastric Amount 400 Right Nares 400 Urine 550 Urine, Voided 550 Urine/Stool Mix 5 1 Other: # Voids Urine, Voided 1 1 1 # Bowel Movements 1 - Medications Active Medications: Active Medications Generic Name Dose Route Start Last Admin Trade Name Freq PRN Reason Stop Dose Admin Acetaminophen 650 mg 11/08/16 20:26 Tylenol 325mg Tab PO Q6 PRN Fever >100.4 F Albuterol/Ipratropium 3 ml 11/09/16 02:00 11/11/16 13:58 Duoneb 3 Mg/0.5 Mg (3 Ml) Ud INH 3 ml RQ6 [facility] Administration Alprazolam 2 mg 11/07/16 19:14 11/10/16 21:26 Xanax PO 2 mg HS PRN Administration Anxiety Aripiprazole 5 mg 11/07/16 10:00 11/11/16 09:28 Abilify PO 5 mg DAILY [facility] Administration Aspirin 81 mg 11/07/16 10:00 11/11/16 09:28 Aspirin Chewable PO 81 mg DAILY [facility] Administration Clopidogrel Bisulfate 75 mg 11/07/16 10:00 11/08/16 10:24 Plavix PO 75 mg DAILY [facility] Administration Enoxaparin Sodium 40 mg 11/07/16 10:00 11/11/16 09:29 Lovenox SC 40 mg DAILY [facility] Administration Famotidine 20 mg 11/07/16 10:00 11/09/16 11:23 Pepcid PO 20 mg BID [facility] Administration Furosemide 40 mg 11/09/16 10:00 11/11/16 09:29 Lasix IVP 40 mg DAILY [facility] Administration Hydromorphone HCl 0.5 mg 11/10/16 15:23 Dilaudid IVP Q3H PRN Pain, moderate (4-7) Potassium Chloride/Dextrose/Sod Cl 1,000 mls @ 80 mls/hr 11/08/16 12:45 09:31 Potassium Chl 40 Meq In D5-1/2ns IV 80 mls/hr .[id number] [facility] Administration Piperacillin Sod/Tazobactam 50 mls @ 100 mls/hr 11/08/16 18:15 11/11/16 09:30 Sod 3.375 gm/ Dextrose IVPB 100 mls/hr Q8H [facility] Administration Azithromycin 500 mg/ Sodium 250 mls @ 250 mls/hr 11/09/16 12:00 11/11/16 11:49 Chloride IVPB 250 mls/hr Q24H [facility] Administration Phenylephrine HCl 30 mg/ 253 mls @ 10.12 mls/hr 11/10/16 04:15 11/11/16 13:25 Dextrose IV 25 mls/hr .Q24H [facility] Administration Protocol 20 MCG/MIN Trimethoprim/Sulfamethoxazole 250 mls @ 200 mls/hr 11/11/16 03:30 11/11/16 11: 47 240 mg/ Dextrose IVPB 200 mls/hr Q8H [facility] Administration Levetiracetam 500 mg 11/09/16 18:00 11/11/16 09:28 Keppra PO 500 mg BID [facility] Administration Methylprednisolone 40 mg 11/09/16 14:00 11/11/16 06:15 Solu-Medrol IV 40 mg Q8 [facility] Administration Metoclopramide HCl 5 mg 11/07/16 18:00 11/11/16 13:37 Reglan IVP 5 mg TID [facility] Administration Ondansetron HCl 4 mg 11/06/16 17:44 11/09/16 14:18 Zofran Inj IVP 4 mg Q6 PRN Administration Nausea/Vomiting Saccharomyces Boulardii 250 mg 11/11/16 12:30 11/11/16 13:29 Florastor PO 250 mg DAILY [facility] Administration Sertraline HCl 100 mg 11/07/16 10:00 11/11/16 09:30 Zoloft PO 100 mg DAILY [facility] Administration Spironolactone 25 mg 11/08/16 18:00 11/11/16 09:28 Aldactone PO 25 mg BID [facility] Administration - Patient Studies Lab Studies: Microbiology Studies 11/08/16 19:58 Urine Culture - Final Urine,Clean Catch Klebsiella Pneumoniae Ssp Pneu 11/08/16 18:00 Blood Culture - Preliminary Blood-Venous NO GROWTH AFTER 48 HOURS 11/08/16 18:30 Blood Culture - Preliminary Blood-Venous NO GROWTH AFTER 48 HOURS 11/09/16 Unknown MRSA Culture (Admit) - Final Naris MRSA NOT DETECTED Lab Studies 11/11/16 11/11/16 11/10/16 Range/Units 14:05 06:31 15:35 WBC 8.1 (4.8-10.8) K/uL RBC 3.40 L (3.80-5.20) Mil/uL Hgb 10.1 L (11.0-16.0) g/dL Hct 30.9 L (34.0-47.0) % MCV 90.9 (81.0-99.0) fL MCH 29.8 (27.0-31.0) pg MCHC 32.8 L (33.0-37.0) g/dL RDW 15.5 H (11.5-14.5) % Plt Count 271 (130-400) K/uL MPV 7.2 (7.2-11.7) fL Neut % (Auto) 90.7 H (50.0-75.0) % Lymph % (Auto) 6.6 L (20.0-40.0) % Kendall % (Auto) 2.6 (0.0-10.0) % Eos % (Auto) 0.0 (0.0-4.0) % Baso % (Auto) 0.1 (0.0-2.0) % Neut # 7.3 H (1.8-7.0) K/uL Lymph # 0.5 L (1.0-4.3) K/uL Kendall # 0.2 (0.0-0.8) K/uL Eos # 0.0 (0.0-0.7) K/uL Baso # 0.0 (0.0-0.2) K/uL Neutrophils % (Manual) 85 H (50-75) % Band Neutrophils % 3 H (0-2) % Lymphocytes % (Manual) 11 L (20-40) % Monocytes % (Manual) 1 (0-10) % Platelet Estimate Normal (NORMAL) Hypochromasia (manual) Slight Poikilocytosis (manual Slight Anisocytosis (manual) Slight Sodium 136 (132-148) mmol/L Potassium 3.7 (3.6-5.2) mmol/L Chloride 101 (98-107) mmol/L Carbon Dioxide 28 (22-30) mmol/L Anion Gap 10 (10-20) BUN 9 (7-17) mg/dL Creatinine 0.7 (0.7-1.2) MG/DL Est GFR ( Amer) > 60 Est GFR (Non-Af Amer) > 60 Random Glucose 84 (65-105) mg/dL Calcium 7.6 L (8.6-10.4) mg/dl Phosphorus 4.9 H (2.5-4.5) mg/dL Magnesium 1.7 1.7 (1.6-2.3) mg/dL Total Bilirubin 0.4 (0.2-1.3) mg/dL AST 23 (14-36) U/L ALT 27 (9-52) U/L Alkaline Phosphatase 76 (38-126) U/L Total Creatine Kinase < 20 L (30-135) U/L CK-MB (Mass) 0.78 (0.0-3.38) ng/mL Troponin I, Quant 0.0170 (0.00-0.120) ng/mL Total Protein 4.7 L (6.3-8.3) g/dL Albumin 2.1 L (3.5-5.0) g/dL Globulin 2.6 (2.2-3.9) gm/dL Albumin/Globulin Ratio 0.8 L (1.0-2.1) Procalcitonin 0.56 H (0.19-0.49) NG/ML Random Vancomycin 13.52 ug/mL Laboratory Results - last 24 hr 11/10/16 11/11/16 11/11/16 15:35 06:31 14:05 WBC 8.1 RBC 3.40 L Hgb 10.1 L Hct 30.9 L MCV 90.9 MCH 29.8 MCHC 32.8 L RDW 15.5 H Plt Count 271 MPV 7.2 Neut % (Auto) 90.7 H Lymph % (Auto) 6.6 L Kendall % (Auto) 2.6 Eos % (Auto) 0.0 Baso % (Auto) 0.1 Neut # 7.3 H Lymph # 0.5 L Kendall # 0.2 Eos # 0.0 Baso # 0.0 Neutrophils % (Manual) 85 H Band Neutrophils % 3 H Lymphocytes % (Manual) 11 L Monocytes % (Manual) 1 Platelet Estimate Normal Hypochromasia (manual) Slight Poikilocytosis (manual Slight Anisocytosis (manual) Slight Sodium 136 Potassium 3.7 Chloride 101 Carbon Dioxide 28 Anion Gap 10 BUN 9 Creatinine 0.7 Est GFR ( Amer) > 60 Est GFR (Non-Af Amer) > 60 Random Glucose 84 Calcium 7.6 L Phosphorus 4.9 H Magnesium 1.7 1.7 Total Bilirubin 0.4 AST 23 ALT 27 Alkaline Phosphatase 76 Total Creatine Kinase < 20 L CK-MB (Mass) 0.78 Troponin I, Quant 0.0170 Total Protein 4.7 L Albumin 2.1 L Globulin 2.6 Albumin/Globulin Ratio 0.8 L Procalcitonin 0.56 H Random Vancomycin 13.52 EKG/Cardiology Studies: Cardiology / EKG Studies 11/11/16 13:52 EKG [ELECTROCARDIOGRAM] Stat Comment: Mode Of Transportation: Reason For Exam: chest pain Critical Care Progress Note - Nutrition Nutrition: Nutrition Category Date Time Status Liquid Diet [DIET] Diets 11/11/16 Breakfast Active Attending/Attestation - Attestation I have personally seen and examined this patient.: Yes I have fully participated in the care of the patient.: Yes I have reviewed all pertinent clinical information: Yes Notes (Text): 11/11/16 15:19 patient seen and examined in the intensive care unit. Case discussed with house staff in the morning rounds. Patient states breathing is improving Has multiple loose bowel movements Started on clear liquids Awake and responsive On BiPAP as needed Afebrile
[2016-11-11] MEDS: Saccharomyces Boulardi 250 mg Cap PO SCH (13:29)
[2016-11-11] MEDS: HYDROmorphone 0.5 mg/0.5 ml ISec IVP PRN (18:47)
[2016-11-11 19:49] LABS: SEROGROUP 1 <1:16 titer (<1:16)
[2016-11-12] MEDS: Albuterol-Ipratrop 3 mg / 0.5 (3 ml) UD INH SCH ×4 (01:04→22:56)
[2016-11-12] MEDS: Piperacillin/Tazobact 3.375 GM in Dextrose 5% In Water 50 ML IVPB SCH ×2 (02:22→12:42)
[2016-11-12] MEDS: Sulfamethoxazole/Trimethoprim 240 MG in Dextrose 5% In Water 250 ML IVPB SCH ×3 (04:22→19:48)
[2016-11-12] MEDS: Phenylephrine 30 MG in Dextrose 5% In Water 250 ML IV SCH (04:25)
[2016-11-12] MEDS: HYDROmorphone 0.5 mg/0.5 ml ISec IVP PRN ×4 (06:08→19:44)
[2016-11-12 06:56] LABS: BASO % 0.2 % (0.0-2.0); HEMATOCRIT 28.8 % (34.0-47.0); LYMPH # 0.6 K/uL (1.0-4.3); LYMPH % 12.3 % (20.0-40.0); MEAN CELL VOLUME 90.6 fL (81.0-99.0); MEAN CORPUSCULAR HGB CONC 33.1 g/dL (33.0-37.0); MEAN PLATELET VOLUME 7.5 fL (7.2-11.7); MONO # 0.1 K/uL (0.0-0.8); MONO % 2.2 % (0.0-10.0); RED CELL DISTRIBUTION WIDTH 15.6 % (11.5-14.5); WHITE BLOOD COUNT 5.1 K/uL (4.8-10.8)
[2016-11-12 07:03] LABS: CHLORIDE 100 mmol/L (98-107); POTASSIUM 3.8 mmol/L (3.6-5.2); SODIUM 136 mmol/L (132-148)
[2016-11-12 07:05] LABS: ALB/GLOB RATIO 0.8 (1.0-2.1); ALKALINE PHOSPHATASE 75 U/L (38-126); AST/SGOT 27 U/L (14-36); BILIRUBIN,TOTAL 0.4 mg/dL (0.2-1.3); BLOOD UREA NITROGEN 9 mg/dL (7-17); CARBON DIOXIDE 30 mmol/L (22-30); GFR AFRICAN-AMERICAN > 60; TOTAL PROTEIN 4.4 g/dL (6.3-8.3)
[2016-11-12 07:06] LABS: ALT/SGPT 25 U/L (9-52); CALCIUM 7.3 mg/dl (8.6-10.4); GLUCOSE,RANDOM 81 mg/dL (65-105); MAGNESIUM 1.5 mg/dL (1.6-2.3); PHOSPHOROUS 5.2 mg/dL (2.5-4.5)
[2016-11-12] MEDS: Saccharomyces Boulardi 250 mg Cap PO SCH (09:09)
[2016-11-12] MEDS: Enoxaparin 40 mg Syringe SC SCH (09:09)
[2016-11-12] MEDS: levETIRAcetam 100 mg/ml (5ml) Oral Syringe PO SCH ×2 (09:09→17:21)
--- NOTE | 2016-11-12 10:03 | CP.PCM.PN ---
<Juan DanielViky marrero - Last Filed: 11/12/16 10:00> Subjective - Date & Time of Evaluation Date of Evaluation: 11/12/16 Time of Evaluation: 10:00 - Subjective Subjective: Surgery: Dr. Caraballo Pt examined at bedside. She remains in ICU secondary to poor respiratory status. Pt is currently on nonrebreather for oxygenation. She states she did not require BiPAP last night. Patient admits to mild pain in abdomen with palpation. She denies nausea, vomiting, and tolerating CLD. Pt is asking for regular diet, will start her on full liquid and see if she tolerates. Objective - Vital Signs/Intake and Output Vital Signs (last 24 hours): Temp Pulse Resp BP Pulse Ox 97.3 F L 99 H 37 H 99/67 L 88 L 11/12/16 08:00 11/12/16 08:00 11/12/16 08:00 11/12/16 08:00 11/12/16 08:00 Intake and Output: 11/12/16 11/12/16 06:59 18:59 Intake Total 905 200 Output Total 800 100 Balance 105 100 - Medications Medications: Current Medications Acetaminophen (Tylenol 325mg Tab) 650 mg PO Q6 PRN PRN Reason: Fever >100.4 F Albuterol/Ipratropium (Duoneb 3 Mg/0.5 Mg (3 Ml) Ud) 3 ml INH RQ6 [facility] Last Admin: 11/12/16 09:26 Dose: 3 ml Alprazolam (Xanax) 2 mg PO HS PRN PRN Reason: Anxiety Last Admin: 11/11/16 21:35 Dose: 2 mg Aripiprazole (Abilify) 5 mg PO DAILY [facility] Last Admin: 11/12/16 09:08 Dose: 5 mg Aspirin (Aspirin Chewable) 81 mg PO DAILY [facility] Last Admin: 11/12/16 09:08 Dose: 81 mg Clopidogrel Bisulfate (Plavix) 75 mg PO DAILY [facility] Last Admin: 11/08/16 10:24 Dose: 75 mg Enoxaparin Sodium (Lovenox) 40 mg SC DAILY [facility] Last Admin: 11/12/16 09:09 Dose: 40 mg Famotidine (Pepcid) 20 mg PO BID [facility] Last Admin: 11/12/16 09:09 Dose: 20 mg Furosemide (Lasix) 40 mg IVP DAILY [facility] Last Admin: 11/11/16 09:29 Dose: 40 mg Hydromorphone HCl (Dilaudid) 0.5 mg IVP Q3H PRN PRN Reason: Pain, moderate (4-7) Last Admin: 11/12/16 09:10 Dose: 0.5 mg Potassium Chloride/Dextrose/Sod Cl (Potassium Chl 40 Meq In D5-1/2ns) 1,000 mls @ 80 mls/hr IV .[id number] [facility] Last Admin: 11/11/16 09:31 Dose: 80 mls/hr Piperacillin Sod/Tazobactam (Sod 3.375 gm/ Dextrose) 50 mls @ 100 mls/hr IVPB Q8H [facility] Last Admin: 11/12/16 02:22 Dose: 100 mls/hr Azithromycin 500 mg/ Sodium (Chloride) 250 mls @ 250 mls/hr IVPB Q24H [facility] Last Admin: 11/11/16 11:49 Dose: 250 mls/hr Phenylephrine HCl 30 mg/ (Dextrose) 253 mls @ 10.12 mls/hr IV .Q24H [facility]; 20 MCG /MIN PRN Reason: Protocol Last Admin: 11/12/16 04:25 Dose: Not Given Trimethoprim/Sulfamethoxazole (240 mg/ Dextrose) 250 mls @ 200 mls/hr IVPB Q8H [facility] Last Admin: 11/12/16 04:22 Dose: 200 mls/hr Levetiracetam (Keppra) 500 mg PO BID [facility] Last Admin: 11/12/16 09:09 Dose: 500 mg Methylprednisolone (Solu-Medrol) 40 mg IV Q8 [facility] Last Admin: 11/12/16 06:08 Dose: 40 mg Metoclopramide HCl (Reglan) 5 mg IVP TID [facility] Last Admin: 11/12/16 09:09 Dose: 5 mg Ondansetron HCl (Zofran Inj) 4 mg IVP Q6 PRN PRN Reason: Nausea/Vomiting Last Admin: 11/09/16 14:18 Dose: 4 mg Saccharomyces Boulardii (Florastor) 250 mg PO DAILY [facility] Last Admin: 11/12/16 09:09 Dose: 250 mg Sertraline HCl (Zoloft) 100 mg PO DAILY [facility] Last Admin: 11/12/16 09:10 Dose: 100 mg Spironolactone (Aldactone) 25 mg PO BID [facility] Last Admin: 11/12/16 09:08 Dose: 25 mg - Labs Labs: 11/12/16 06:35 11/12/16 06:35 - Constitutional Appears: No Acute Distress, Chronically Ill - Head Exam Head Exam: ATRAUMATIC, NORMAL INSPECTION, NORMOCEPHALIC - Eye Exam Eye Exam: EOMI - ENT Exam ENT Exam: Mucous Membranes Dry - Respiratory Exam Respiratory Exam: Accessory Muscle Use Additional comments: on nonrebreather - Cardiovascular Exam Cardiovascular Exam: +S1, +S2. absent: Tachycardia - GI/Abdominal Exam GI & Abdominal Exam: Distended, Soft Additional comments: mild tenderness to palpation - Psychiatric Exam Psychiatric exam: Normal Affect, Normal Mood Assessment and Plan - Assessment and Plan (Free Text) Assessment: 51 y/o F w/ abdominal pain secondary to SBO Plan: -cont pulmonary care per ICU -advanced to full liquid diet. Will monitor if tolerating -serial abdominal exams -SBO overall appears resolved -Will d/w with Dr. Caraballo <Lisa Caraballo - Last Filed: 12/30/16 10:19> Subjective - Date & Time of Evaluation Date of Evaluation: 11/27/16 Objective - Vital Signs/Intake and Output Vital Signs (last 24 hours): Temp Pulse Resp BP Pulse Ox 99.9 F H 114 H 22 76/39 L 75 L 11/29/16 12:00 11/29/16 20:00 11/29/16 20:00 11/29/16 19:54 11/29/16 20:00 - Labs Labs: 11/29/16 06:24 11/29/16 06:24 PT 15.0 SECONDS (9.7-12.2) H 11/26/16 12:14 INR 1.3 11/26/16 12:14 APTT 28 SECONDS (21-34) 11/26/16 12:14
[2016-11-12] MEDS: Piperacill/Tazo 3.375gm in Dex 50 ML IVPB SCH ×2 (11:32→19:47)
[2016-11-12] MEDS: Azithromycin 500 MG in Sodium Chloride 0.9% 250 ML IVPB SCH (12:47)
--- NOTE | 2016-11-12 12:47 | RAD ---
HISTORY: Shortness of breath COMPARISON: 11/11/2016 FINDINGS: LUNGS: Lines and tubes in stable position. Persistent diffuse confluent bilateral airspace opacities throughout both lungs. Right-sided pleural parenchymal opacities. Suggestion of bilateral pleural effusions. PLEURA: As above. CARDIOVASCULAR: Normal. OSSEOUS STRUCTURES: No significant abnormalities. VISUALIZED UPPER ABDOMEN: Normal. OTHER FINDINGS: None. IMPRESSION: Lines and tubes in stable position. Persistent diffuse confluent bilateral airspace opacities throughout both lungs. Right-sided pleural parenchymal opacities. Suggestion of bilateral pleural effusions.
[2016-11-12] MEDS ORDERED: Potassium Chloride 20 mEq/15 ml LIQ UD PO ONE (14:45)
--- NOTE | 2016-11-12 14:48 | CARD ---
APPROVED REPORT EKG Measurement Heart [id number] <Conclusion> Sinus rhythm with occasional premature ventricular complexes and premature atrial complexes Left anterior fascicular block Cannot rule out Anterior infarct, age undetermined Abnormal ECG
--- NOTE | 2016-11-12 16:52 | CP.PCM.PN ---
Subjective - Date & Time of Evaluation Date of Evaluation: 11/12/16 Time of Evaluation: 07:30 - Subjective Subjective: Patient seen and examined in the intensive care unit. Remains short of breath and hypoxic On BiPAP Chest x-ray with bilateral yesterday she'll disease noted Fair appetite Objective - Vital Signs/Intake and Output Vital Signs (last 24 hours): Temp Pulse Resp BP Pulse Ox 97.3 F L 99 H 37 H 99/67 L 88 L 11/12/16 08:00 11/12/16 08:00 11/12/16 08:00 11/12/16 08:00 11/12/16 08:00 Intake and Output: 11/12/16 11/12/16 06:59 18:59 Intake Total 905 200 Output Total 800 100 Balance 105 100 - Medications Medications: Current Medications Acetaminophen (Tylenol 325mg Tab) 650 mg PO Q6 PRN PRN Reason: Fever >100.4 F Albuterol/Ipratropium (Duoneb 3 Mg/0.5 Mg (3 Ml) Ud) 3 ml INH RQ6 [facility] Last Admin: 11/12/16 09:26 Dose: 3 ml Alprazolam (Xanax) 2 mg PO HS PRN PRN Reason: Anxiety Last Admin: 11/11/16 21:35 Dose: 2 mg Aripiprazole (Abilify) 5 mg PO DAILY [facility] Last Admin: 11/12/16 09:08 Dose: 5 mg Aspirin (Aspirin Chewable) 81 mg PO DAILY [facility] Last Admin: 11/12/16 09:08 Dose: 81 mg Clopidogrel Bisulfate (Plavix) 75 mg PO DAILY [facility] Last Admin: 11/08/16 10:24 Dose: 75 mg Enoxaparin Sodium (Lovenox) 40 mg SC DAILY [facility] Last Admin: 11/12/16 09:09 Dose: 40 mg Famotidine (Pepcid) 20 mg PO BID [facility] Last Admin: 11/12/16 09:09 Dose: 20 mg Furosemide (Lasix) 40 mg IVP DAILY [facility] Last Admin: 11/11/16 09:29 Dose: 40 mg Hydromorphone HCl (Dilaudid) 0.5 mg IVP Q3H PRN PRN Reason: Pain, moderate (4-7) Last Admin: 11/12/16 09:10 Dose: 0.5 mg Potassium Chloride/Dextrose/Sod Cl (Potassium Chl 40 Meq In D5-1/2ns) 1,000 mls @ 80 mls/hr IV .[id number] [facility] Last Admin: 11/11/16 09:31 Dose: 80 mls/hr Piperacillin Sod/Tazobactam (Sod 3.375 gm/ Dextrose) 50 mls @ 100 mls/hr IVPB Q8H [facility] Last Admin: 11/12/16 02:22 Dose: 100 mls/hr Azithromycin 500 mg/ Sodium (Chloride) 250 mls @ 250 mls/hr IVPB Q24H [facility] Last Admin: 11/11/16 11:49 Dose: 250 mls/hr Phenylephrine HCl 30 mg/ (Dextrose) 253 mls @ 10.12 mls/hr IV .Q24H [facility]; 20 MCG /MIN PRN Reason: Protocol Last Admin: 11/12/16 04:25 Dose: Not Given Trimethoprim/Sulfamethoxazole (240 mg/ Dextrose) 250 mls @ 200 mls/hr IVPB Q8H [facility] Last Admin: 11/12/16 04:22 Dose: 200 mls/hr Levetiracetam (Keppra) 500 mg PO BID [facility] Last Admin: 11/12/16 09:09 Dose: 500 mg Methylprednisolone (Solu-Medrol) 40 mg IV Q8 [facility] Last Admin: 11/12/16 06:08 Dose: 40 mg Metoclopramide HCl (Reglan) 5 mg IVP TID [facility] Last Admin: 11/12/16 09:09 Dose: 5 mg Ondansetron HCl (Zofran Inj) 4 mg IVP Q6 PRN PRN Reason: Nausea/Vomiting Last Admin: 11/09/16 14:18 Dose: 4 mg Saccharomyces Boulardii (Florastor) 250 mg PO DAILY [facility] Last Admin: 11/12/16 09:09 Dose: 250 mg Sertraline HCl (Zoloft) 100 mg PO DAILY [facility] Last Admin: 11/12/16 09:10 Dose: 100 mg Spironolactone (Aldactone) 25 mg PO BID [facility] Last Admin: 11/12/16 09:08 Dose: 25 mg - Labs Labs: 11/12/16 06:35 11/12/16 06:35 - Head Exam Head Exam: ATRAUMATIC, NORMOCEPHALIC - Eye Exam Eye Exam: Normal appearance - ENT Exam ENT Exam: Mucous Membranes Moist - Neck Exam Neck Exam: Normal Inspection - Respiratory Exam Respiratory Exam: Rales - Cardiovascular Exam Cardiovascular Exam: REGULAR RHYTHM - GI/Abdominal Exam GI & Abdominal Exam: Soft, Normal Bowel Sounds - Extremities Exam Extremities Exam: Normal Inspection Assessment and Plan (1) Respiratory insufficiency Assessment & Plan: Still requiring high FiO2 and BiPAP Chest x-ray no change On antibiotics as per ID Consider antivirals treatment Patient extremely hypoxic and high risk for bronchoscopy and biopsy Consider intubation and open lung biopsy if condition does not improve Continue steroids Status: Acute (2) Bilateral pneumonia Status: Acute (3) Small bowel obstruction Status: Acute
--- NOTE | 2016-11-12 17:04 | CP.CCUPN ---
<Mariana Robison - Last Filed: 11/12/16 14:22> CCU Subjective - Physician Review Events Since Last Encounter (Free Text): 11/12/16 14:26 Continuing to require supplemental O2, periodic de-saturations Subjective (Free Text): 11/10/16 12:04 Pt S & E this AM. Reports ab pain and SOB improved- on VTM. Had soft unformed BMs x 2 yesterday, 1 liquid stool today with large volume flatus. Denies N/V/F/C, chest pain. 11/11/16 12:38 Pt S & E this AM. Pt reports having 3 liquid stools yesterday, continues to require VTM 2/2 SOB, insomnia. Abdominal pain much improved, abdominal distention much improved. Denies N/V/F/C, chest pain. 11/12/16 14:26 Pt S & E this AM. Pt reports continued SOB, likes being on Bipap 2/2 less work to breathe. Ab pain improved, continues with liquid stools, now has non productive cough. Critical Care Time Spent (in minutes): 60 CCU Objective - Vital Signs / Intake & Output Vital Signs (Last 4 hours): Vital Signs Pulse 11/12/16 14:08 100 H Intake and Output (Last 8hrs): Intake & Output 11/11/16 11/12/16 11/12/16 22:59 06:59 14:59 Intake Total 1035 375 550 Output Total 651 500 101 Balance 384 -125 449 Intake: Intake, IV Amount 425 300 350 Right Medial Port 125 300 Internal Jugular Right Distal Port 300 350 Internal Jugular Oral 610 75 200 Output: Urine 650 500 100 Urine, Voided 650 500 100 Urine/Stool Mix 1 1 Other: # Voids Urine, Voided 1 - Physical Exam Head: Positive for: Atraumatic, Normocephalic Pupils: Positive for: PERRL Extroacular Muscles: Positive for: EOMI Conjunctiva: Positive for: Normal Ears: Positive for: Normal Mouth: Positive for: Moist Mucous Membranes Pharnyx: Positive for: Normal Nose (External): Positive for: Atraumatic Neck: Positive for: Normal Range of Motion, Trachea Midline Respiratory/Chest: Positive for: Accessory Muscle Use, Decreased Breath Sounds, Other (on VTM ). Negative for: Clear to Auscultation (coarse BS), Good Air Exchange (decreased), Respiratory Distress, Rales, Rhonchi Cardiovascular: Positive for: Regular Rate and Rhythm, Normal S1, S2. Negative for: Murmurs Abdomen: Negative for: Tenderness, Distention, Normal Bowel Sounds (hypoactive) , Peritoneal Signs, Rebound, Guarding Upper Extremity: Positive for: Normal Inspection. Negative for: Cyanosis, Edema Lower Extremity: Positive for: Normal Inspection, Edema (B/L, minimal) Neurological: Positive for: GCS=15, CN II-XII Intact, Speech Normal Skin: Positive for: Warm, Dry, Normal Color. Negative for: Rashes Psychiatric: Positive for: Alert, Oriented x 3, Normal Insight, Normal Concentration - Medications Active Medications: Active Medications Generic Name Dose Route Start Last Admin Trade Name Freq PRN Reason Stop Dose Admin Acetaminophen 650 mg 11/08/16 20:26 Tylenol 325mg Tab PO Q6 PRN Fever >100.4 F Albuterol/Ipratropium 3 ml 11/09/16 02:00 11/12/16 14:07 Duoneb 3 Mg/0.5 Mg (3 Ml) Ud INH 3 ml RQ6 [facility] Administration Alprazolam 2 mg 11/07/16 19:14 11/11/16 21:35 Xanax PO 2 mg HS PRN Administration Anxiety Aripiprazole 5 mg 11/07/16 10:00 11/12/16 09:08 Abilify PO 5 mg DAILY [facility] Administration Aspirin 81 mg 11/07/16 10:00 11/12/16 09:08 Aspirin Chewable PO 81 mg DAILY [facility] Administration Clopidogrel Bisulfate 75 mg 11/07/16 10:00 11/08/16 10:24 Plavix PO 75 mg DAILY [facility] Administration Enoxaparin Sodium 40 mg 11/07/16 10:00 11/12/16 09:09 Lovenox SC 40 mg DAILY [facility] Administration Famotidine 20 mg 11/07/16 10:00 11/12/16 09:09 Pepcid PO 20 mg BID [facility] Administration Hydromorphone HCl 0.5 mg 11/10/16 15:23 11/12/16 09:10 Dilaudid IVP 0.5 mg Q3H PRN Administration Pain, moderate (4-7) Azithromycin 500 mg/ Sodium 250 mls @ 250 mls/hr 11/09/16 12:00 11/12/16 12:47 Chloride IVPB 250 mls/hr Q24H [facility] Administration Phenylephrine HCl 30 mg/ 253 mls @ 10.12 mls/hr 11/10/16 04:15 11/12/16 04:25 Dextrose IV Not Given .Q24H [facility] Protocol 20 MCG/MIN Trimethoprim/Sulfamethoxazole 250 mls @ 200 mls/hr 11/11/16 03:30 11/12/16 11: 34 240 mg/ Dextrose IVPB 200 mls/hr Q8H [facility] Administration Piperacillin Sod/Tazobactam Sod 50 mls @ 100 mls/hr 11/12/16 11:30 11/12/16 11: 32 Zosyn 3.375 Gm Iv Premix IVPB 100 mls/hr Q8H [facility] Administration Magnesium Sulfate/Dextrose 100 mls @ 300 mls/hr 11/12/16 13:15 Magnesium Sulfate 1 Gm/100 Ml D5w IVPB 11/12/16 14:04 Q30M [facility] Levetiracetam 500 mg 11/09/16 18:00 11/12/16 09:09 Keppra PO 500 mg BID [facility] Administration Methylprednisolone 40 mg 11/09/16 14:00 11/12/16 06:08 Solu-Medrol IV 40 mg Q8 [facility] Administration Potassium Chloride 40 meq 11/12/16 13:15 Potassium Chloride Oral Soln PO 11/12/16 13:16 ONCE ONE Saccharomyces Boulardii 250 mg 11/11/16 12:30 11/12/16 09:09 Florastor PO 250 mg DAILY [facility] Administration Sertraline HCl 100 mg 11/07/16 10:00 11/12/16 09:10 Zoloft PO 100 mg DAILY [facility] Administration Spironolactone 25 mg 11/08/16 18:00 11/12/16 09:08 Aldactone PO 25 mg BID [facility] Administration - Patient Studies Lab Studies: Microbiology Studies 11/08/16 18:00 Blood Culture - Preliminary Blood-Venous NO GROWTH AFTER 3 DAYS 11/08/16 18:30 Blood Culture - Preliminary Blood-Venous NO GROWTH AFTER 3 DAYS Lab Studies 11/12/16 11/11/16 11/10/16 Range/Units 06:35 14:05 09:36 WBC 5.1 (4.8-10.8) K/uL RBC 3.18 L (3.80-5.20) Mil/uL Hgb 9.5 L (11.0-16.0) g/dL Hct 28.8 L (34.0-47.0) % MCV 90.6 (81.0-99.0) fL MCH 30.0 (27.0-31.0) pg MCHC 33.1 (33.0-37.0) g/dL RDW 15.6 H (11.5-14.5) % Plt Count 211 (130-400) K/uL MPV 7.5 (7.2-11.7) fL Neut % (Auto) 85.3 H (50.0-75.0) % Lymph % (Auto) 12.3 L (20.0-40.0) % Person % (Auto) 2.2 (0.0-10.0) % Eos % (Auto) 0.0 (0.0-4.0) % Baso % (Auto) 0.2 (0.0-2.0) % Neut # 4.4 (1.8-7.0) K/uL Lymph # 0.6 L (1.0-4.3) K/uL Person # 0.1 (0.0-0.8) K/uL Eos # 0.0 (0.0-0.7) K/uL Baso # 0.0 (0.0-0.2) K/uL Sodium 136 (132-148) mmol/L Potassium 3.8 (3.6-5.2) mmol/L Chloride 100 (98-107) mmol/L Carbon Dioxide 30 (22-30) mmol/L Anion Gap 10 (10-20) BUN 9 (7-17) mg/dL Creatinine 0.7 (0.7-1.2) MG/DL Est GFR ( Amer) > 60 Est GFR (Non-Af Amer) > 60 Random Glucose 81 (65-105) mg/dL Calcium 7.3 L (8.6-10.4) mg/dl Phosphorus 5.2 H (2.5-4.5) mg/dL Magnesium 1.5 L (1.6-2.3) mg/dL Total Bilirubin 0.4 (0.2-1.3) mg/dL AST 27 (14-36) U/L ALT 25 (9-52) U/L Alkaline Phosphatase 75 (38-126) U/L Total Creatine Kinase < 20 L (30-135) U/L CK-MB (Mass) 0.78 (0.0-3.38) ng/mL Troponin I, Quant 0.0170 (0.00-0.120) ng/mL Total Protein 4.4 L (6.3-8.3) g/dL Albumin 1.9 L (3.5-5.0) g/dL Globulin 2.5 (2.2-3.9) gm/dL Albumin/Globulin Ratio 0.8 L (1.0-2.1) Double Strand DNA Ab 5 H (()) IU/mL Laboratory Results - last 24 hr 11/10/16 11/11/16 11/12/16 09:36 14:05 06:35 WBC 5.1 RBC 3.18 L Hgb 9.5 L Hct 28.8 L MCV 90.6 MCH 30.0 MCHC 33.1 RDW 15.6 H Plt Count 211 MPV 7.5 Neut % (Auto) 85.3 H Lymph % (Auto) 12.3 L Person % (Auto) 2.2 Eos % (Auto) 0.0 Baso % (Auto) 0.2 Neut # 4.4 Lymph # 0.6 L Person # 0.1 Eos # 0.0 Baso # 0.0 Sodium 136 Potassium 3.8 Chloride 100 Carbon Dioxide 30 Anion Gap 10 BUN 9 Creatinine 0.7 Est GFR ( Amer) > 60 Est GFR (Non-Af Amer) > 60 Random Glucose 81 Calcium 7.3 L Phosphorus 5.2 H Magnesium 1.5 L Total Bilirubin 0.4 AST 27 ALT 25 Alkaline Phosphatase 75 Total Creatine Kinase < 20 L CK-MB (Mass) 0.78 Troponin I, Quant 0.0170 Total Protein 4.4 L Albumin 1.9 L Globulin 2.5 Albumin/Globulin Ratio 0.8 L Double Strand DNA Ab 5 H EKG/Cardiology Studies: Cardiology / EKG Studies 11/11/16 13:52 EKG [ELECTROCARDIOGRAM] Stat Comment: Mode Of Transportation: Reason For Exam: chest pain Review of Systems - Review of Systems All systems: reviewed and no additional remarkable complaints except - Constitutional Constitutional: absent: Fever, Chills - EENT Eyes: absent: Change in Vision Nose/Mouth/Throat: absent: Sore Throat - Respiratory Respiratory: Cough, Dyspnea. absent: Wheezing - Gastrointestinal Gastrointestinal: Abdominal Pain (intermittent, improved), Change in Bowel Habits. absent: Bloating, Nausea, Vomiting - Genitourinary Genitourinary: absent: Change in Urinary Stream - Neurological Neurological: absent: Dizziness, Headaches - Psychiatric Psychiatric: UNREMARKABLE - Endocrine Endocrine: UNREMARKABLE Critical Care Progress Note - Ventilator Checklist Head of Bed 30 Degrees: Yes Daily Sedation Vacation: No (not sedated) PUD Prophalyxis: Yes DVT Prophylaxis: Yes - Extremities/Vascular Does the Patient have a Central Venous Catheter?: Yes Insertion Site: Internal Jugular Vein Does the Patient need a Central Venous Catheter?: Yes (pressors) Does the Patient have a Mishra Catheter?: No Does the Patient need a Mishra Catheter?: No - Prophylaxis GI Prophylaxis GI: Pepsid - Prophylaxis DVT Prophylaxis DVT: Lovenox - Nutrition Nutrition: Nutrition Category Date Time Status Liquid Diet [DIET] Diets 11/11/16 Breakfast Active Assessment/Plan - Assessment and Plan (Free Text) Assessment: 51F w/respiratory distress, SBO- improving. Pt continuing to require VTM during the day with periods of Bipap, Bipap overnight. Cont ICU care. Plan: Neuro Awake Alert Stable Cont home meds: Zoloft, Xanax, Abilify, Keppra Seizure precautions Monitor CVS Pressors ASA Trop neg x 1 EKG -NSR w/PVCs, PACs; no ST elevations Monitor Pulm Continues to require VTM with Bipap at times Duonebs SOlu-medrol CXR - persistent diffuse confluent B/L airspace opacities throughout both lungs. R-sided pleural parenchyamal opacities. Suggestion of B/L pleural effusions Pulm following Nephro D5-1/2 w/40mEq KCl- d/c'd K 3.8 supplemented Hypomagnesemia- Mg 1.5 Replaced Spironolactone Monitor GI Full liquid diet Added supplements Business Developer consult Liquid stools cont Probiotic Dilaudid Zofran- d/c'd Reglan- d/c'd Hepatobiliary surgery following Gen surg following- SBO mgmt as per surgery Voids on own MOnitor Heme Hgb 9.5 Hct 28.8 Monitor for signs of bleeding Endo Sugars WNL Monitor MSK Monitor for skin break down ID Urine cx - Klebsiella PNA No leukocytosis Afebrile over last 24H Zosyn Azithromycin Bactrim Tylenol PRN Blood cx neg x 3D HIV neg FU Legionella ID following GI/DVT ppx Pepcid Lovenox Dispo: Continue ICU care DW attending - Date & Time Date: 11/12/16 Time: 07:15 <Wendy Michael - Last Filed: 11/13/16 16:12> CCU Objective - Vital Signs / Intake & Output Vital Signs (Last 4 hours): Vital Signs Pulse 11/13/16 13:55 103 H Intake and Output (Last 8hrs): Intake & Output 11/13/16 11/13/16 11/13/16 06:59 14:59 22:59 Intake Total 450 270 Output Total 825 300 Balance -375 -30 Weight 130 lb 11.746 oz Intake: Intake, IV Amount 300 Right Distal Port 300 Internal Jugular Oral 150 270 Output: Urine 825 300 Urethral (Mishra) 825 300 Emesis 0 Other: # Bowel Movements 0 - Medications Active Medications: Active Medications Generic Name Dose Route Start Last Admin Trade Name Freq PRN Reason Stop Dose Admin Acetaminophen 650 mg 11/08/16 20:26 Tylenol 325mg Tab PO Q6 PRN Fever >100.4 F Albuterol/Ipratropium 3 ml 11/09/16 02:00 11/13/16 08:04 Duoneb 3 Mg/0.5 Mg (3 Ml) Ud INH 3 ml RQ6 [facility] Administration Alprazolam 2 mg 11/07/16 19:14 11/12/16 21:14 Xanax PO 2 mg HS PRN Administration Anxiety Aripiprazole 5 mg 11/07/16 10:00 11/13/16 09:43 Abilify PO 5 mg DAILY [facility] Administration Aspirin 81 mg 11/07/16 10:00 11/13/16 09:43 Aspirin Chewable PO 81 mg DAILY [facility] Administration Clopidogrel Bisulfate 75 mg 11/07/16 10:00 11/08/16 10:24 Plavix PO 75 mg DAILY [facility] Administration Enoxaparin Sodium 40 mg 11/07/16 10:00 11/13/16 09:43 Lovenox SC 40 mg DAILY [facility] Administration Famotidine 20 mg 11/07/16 10:00 11/13/16 09:43 Pepcid PO 20 mg BID [facility] Administration Hydromorphone HCl 0.5 mg 11/10/16 15:23 11/13/16 11:33 Dilaudid IVP 0.5 mg Q3H PRN Administration Pain, moderate (4-7) Trimethoprim/Sulfamethoxazole 250 mls @ 200 mls/hr 11/11/16 03:30 11/13/16 12: 00 240 mg/ Dextrose IVPB 200 mls/hr Q8H [facility] Administration Levetiracetam 500 mg 11/09/16 18:00 11/13/16 09:43 Keppra PO 500 mg BID [facility] Administration Methylprednisolone 40 mg 11/09/16 14:00 11/13/16 14:14 Solu-Medrol IV 40 mg Q8 [facility] Administration Ondansetron HCl 4 mg 11/12/16 19:35 11/13/16 14:14 Zofran Inj IVP 4 mg Q6H PRN Administration Nausea/Vomiting Saccharomyces Boulardii 250 mg 11/11/16 12:30 11/13/16 09:43 Florastor PO 250 mg DAILY [facility] Administration Sertraline HCl 100 mg 11/07/16 10:00 11/13/16 09:45 Zoloft PO 100 mg DAILY [facility] Administration Spironolactone 25 mg 11/08/16 18:00 11/13/16 09:43 Aldactone PO 25 mg BID [facility] Administration - Patient Studies Lab Studies: Microbiology Studies 11/08/16 18:00 Blood Culture - Preliminary Blood-Venous NO GROWTH AFTER 4 DAYS 11/08/16 18:30 Blood Culture - Preliminary Blood-Venous NO GROWTH AFTER 4 DAYS Lab Studies 11/13/16 11/13/16 11/12/16 Range/Units 06:15 06:14 22:47 WBC 6.4 (4.8-10.8) K/uL RBC 3.40 L (3.80-5.20) Mil/uL Hgb 10.1 L (11.0-16.0) g/dL Hct 30.8 L (34.0-47.0) % MCV 90.6 (81.0-99.0) fL MCH 29.6 (27.0-31.0) pg MCHC 32.7 L (33.0-37.0) g/dL RDW 15.7 H (11.5-14.5) % Plt Count 249 (130-400) K/uL MPV 7.4 (7.2-11.7) fL Neut % (Auto) 79.8 H (50.0-75.0) % Lymph % (Auto) 17.5 L (20.0-40.0) % Person % (Auto) 2.4 (0.0-10.0) % Eos % (Auto) 0.1 (0.0-4.0) % Baso % (Auto) 0.2 (0.0-2.0) % Neut # 5.1 (1.8-7.0) K/uL Lymph # 1.1 (1.0-4.3) K/uL Person # 0.2 (0.0-0.8) K/uL Eos # 0.0 (0.0-0.7) K/uL Baso # 0.0 (0.0-0.2) K/uL Puncture Site Femoral pCO2 42 (35-45) mm/Hg pO2 87 (80-100) mm/Hg HCO3 26.3 (21-28) mmol/L ABG pH 7.41 (7.35-7.45) ABG Total CO2 27.9 (22-28) mmol/L ABG O2 Saturation 97.2 (95-98) % ABG Base Excess 1.8 (-2.0-3.0) mmol/L ABG Hemoglobin 8.5 L (11.7-17.4) g/dL ABG Carboxyhemoglobin 0.9 (0.5-1.5) % POC ABG HHb (Measured) 2.7 (0.0-5.0) % ABG Methemoglobin 1.1 (0.0-3.0) % Reese Test Na A-a O2 Difference 574.0 mm/Hg Respiratory Index 6.6 Hgb O2 Saturation 95.4 (95.0-98.0) % FiO2 100.0 % Sodium 133 (132-148) mmol/L Potassium 4.1 (3.6-5.2) mmol/L Chloride 99 (98-107) mmol/L Carbon Dioxide 32 H (22-30) mmol/L Anion Gap 6 L (10-20) BUN 9 (7-17) mg/dL Creatinine 0.7 (0.7-1.2) MG/DL Est GFR ( Amer) > 60 Est GFR (Non-Af Amer) > 60 Random Glucose 61 L (65-105) mg/dL Calcium 7.6 L (8.6-10.4) mg/dl Phosphorus 3.4 (2.5-4.5) mg/dL Magnesium 1.8 (1.6-2.3) mg/dL Total Bilirubin 0.4 (0.2-1.3) mg/dL AST 32 (14-36) U/L ALT 29 (9-52) U/L Alkaline Phosphatase 88 (38-126) U/L Total Protein 4.5 L (6.3-8.3) g/dL Albumin 1.9 L (3.5-5.0) g/dL Globulin 2.6 (2.2-3.9) gm/dL Albumin/Globulin Ratio 0.7 L (1.0-2.1) Laboratory Results - last 24 hr 11/12/16 11/13/16 11/13/16 22:47 06:14 06:15 WBC 6.4 RBC 3.40 L Hgb 10.1 L Hct 30.8 L MCV 90.6 MCH 29.6 MCHC 32.7 L RDW 15.7 H Plt Count 249 MPV 7.4 Neut % (Auto) 79.8 H Lymph % (Auto) 17.5 L Person % (Auto) 2.4 Eos % (Auto) 0.1 Baso % (Auto) 0.2 Neut # 5.1 Lymph # 1.1 Person # 0.2 Eos # 0.0 Baso # 0.0 Puncture Site Femoral pCO2 42 pO2 87 HCO3 26.3 ABG pH 7.41 ABG Total CO2 27.9 ABG O2 Saturation 97.2 ABG Base Excess 1.8 ABG Hemoglobin 8.5 L ABG Carboxyhemoglobin 0.9 POC ABG HHb (Measured) 2.7 ABG Methemoglobin 1.1 Reese Test Na A-a O2 Difference 574.0 Respiratory Index 6.6 Hgb O2 Saturation 95.4 FiO2 100.0 Sodium 133 Potassium 4.1 Chloride 99 Carbon Dioxide 32 H Anion Gap 6 L BUN 9 Creatinine 0.7 Est GFR ( Amer) > 60 Est GFR (Non-Af Amer) > 60 Random Glucose 61 L Calcium 7.6 L Phosphorus 3.4 Magnesium 1.8 Total Bilirubin 0.4 AST 32 ALT 29 Alkaline Phosphatase 88 Total Protein 4.5 L Albumin 1.9 L Globulin 2.6 Albumin/Globulin Ratio 0.7 L Critical Care Progress Note - Nutrition Nutrition: Nutrition Category Date Time Status Liquid Diet [DIET] Diets 11/11/16 Breakfast Active Attending/Attestation - Attestation I have personally seen and examined this patient.: Yes I have fully participated in the care of the patient.: Yes I have reviewed all pertinent clinical information: Yes Notes (Text): 11/12/16 19:10 patient seen and examined in am, agree with naila's note except for any discrepancies below noted. acute respiratory failure stable, requires positive pressure from bpap, but able to tolerate being off it to eat, desaturates to low 90's high 80's, tachypneic, but states still somehow comfortable sbo resolved off pressors since this early am on steroids
[2016-11-12 22:51] LABS: ARTERIAL BLOOD HGB O2 SAT 95.4 % (95.0-98.0); CARBOXYHEMOGLOBIN 0.9 % (0.5-1.5); DRAW SITE FEMORAL; HHB 2.7 % (0.0-5.0); METHEMOGLOBIN 1.1 % (0.0-3.0)
[2016-11-13] MEDS: Albuterol-Ipratrop 3 mg / 0.5 (3 ml) UD INH SCH ×4 (01:08→19:25)
[2016-11-13] MEDS: Piperacill/Tazo 3.375gm in Dex 50 ML IVPB SCH (02:48)
[2016-11-13] MEDS: Sulfamethoxazole/Trimethoprim 240 MG in Dextrose 5% In Water 250 ML IVPB SCH ×3 (03:20→19:34)
--- NOTE | 2016-11-13 04:14 | CP.PCM.PN ---
Subjective - Date & Time of Evaluation Date of Evaluation: 11/13/16 Time of Evaluation: 04:14 - Subjective Subjective: CHIEF COMPLAINTS TODAY : patient in ICU, LATE ENTRY 11/12/16 Afebrile,vs as noted on rebreather mask. Complains of mild abdominal pain ROS. HEENT : N. Resp : No cough, +ve wheezing , no pleuritic CP ,or hemoptysis Cardio : No anginal CP, PND, orthopnea, palpitation GI : +VE ABDOMINAL PAIN, NO n/v ,diarrhea or GI bleeding . ELECTRICAL MACHINE BUILDER : No headache, vertigo, focal deficit / Musculoskel : No joint swelling , Derm : No rash Psych : Normal affect. Ext : No swelling ,calf pain PE. Pt. is awake on rebreather mask V.S As noted in the chart Head ,ear nose,throat and eyes : Normal. Neck : Supple with normal carotids. Lungs: BILATERAL RHONCHI AND EXPIRATORY WHEEZE.. Heart : S1 & S2 normal with S4. No murmur. Abd : soft, GENERALIZED TENDERNESS with HYPOACTIVE bowel sounds. Neuro : Moves all ext. with no localized deficit. Ext : No edema with intact pulses.Non tender calves Derm : No rashes or decubitus ulcer. LABS/RADIOLOGY: reviewed URINE CULTURE SENSITIVITY 11/08/16 +VE Klebsiella pneumoniae s-Cipro, Primaxin, BLOOD CULTURES 11/08 NEGATIVE FOR 48 HOURS Objective - Vital Signs/Intake and Output Vital Signs (last 24 hours): Temp Pulse Resp BP Pulse Ox 97.6 F 89 27 H 100/67 97 11/13/16 00:00 11/13/16 02:00 11/13/16 02:00 11/13/16 02:00 11/13/16 02:00 Intake and Output: 11/12/16 11/13/16 18:59 06:59 Intake Total 1980 660 Output Total 427 875 Balance 1553 -215 - Medications Medications: Current Medications Acetaminophen (Tylenol 325mg Tab) 650 mg PO Q6 PRN PRN Reason: Fever >100.4 F Albuterol/Ipratropium (Duoneb 3 Mg/0.5 Mg (3 Ml) Ud) 3 ml INH RQ6 [facility] Last Admin: 11/13/16 01:08 Dose: 3 ml Alprazolam (Xanax) 2 mg PO HS PRN PRN Reason: Anxiety Last Admin: 11/12/16 21:14 Dose: 2 mg Aripiprazole (Abilify) 5 mg PO DAILY [facility] Last Admin: 11/12/16 09:08 Dose: 5 mg Aspirin (Aspirin Chewable) 81 mg PO DAILY [facility] Last Admin: 11/12/16 09:08 Dose: 81 mg Clopidogrel Bisulfate (Plavix) 75 mg PO DAILY [facility] Last Admin: 11/08/16 10:24 Dose: 75 mg Enoxaparin Sodium (Lovenox) 40 mg SC DAILY [facility] Last Admin: 11/12/16 09:09 Dose: 40 mg Famotidine (Pepcid) 20 mg PO BID [facility] Last Admin: 11/12/16 17:20 Dose: 20 mg Hydromorphone HCl (Dilaudid) 0.5 mg IVP Q3H PRN PRN Reason: Pain, moderate (4-7) Last Admin: 11/12/16 19:44 Dose: 0.5 mg Phenylephrine HCl 30 mg/ (Dextrose) 253 mls @ 10.12 mls/hr IV .Q24H [facility]; 20 MCG /MIN PRN Reason: Protocol Last Admin: 11/12/16 04:25 Dose: Not Given Trimethoprim/Sulfamethoxazole (240 mg/ Dextrose) 250 mls @ 200 mls/hr IVPB Q8H [facility] Last Admin: 11/13/16 03:20 Dose: 200 mls/hr Levetiracetam (Keppra) 500 mg PO BID [facility] Last Admin: 11/12/16 17:21 Dose: 500 mg Methylprednisolone (Solu-Medrol) 40 mg IV Q8 [facility] Last Admin: 11/13/16 02:48 Dose: 40 mg Ondansetron HCl (Zofran Inj) 4 mg IVP Q6H PRN PRN Reason: Nausea/Vomiting Last Admin: 11/12/16 20:15 Dose: 4 mg Saccharomyces Boulardii (Florastor) 250 mg PO DAILY [facility] Last Admin: 11/12/16 09:09 Dose: 250 mg Sertraline HCl (Zoloft) 100 mg PO DAILY [facility] Last Admin: 11/12/16 09:10 Dose: 100 mg Spironolactone (Aldactone) 25 mg PO BID [facility] Last Admin: 11/12/16 17:20 Dose: 25 mg - Labs Labs: 11/12/16 06:35 11/12/16 06:35 Assessment and Plan - Assessment and Plan (Free Text) Assessment: IMPRESSION; > RESPIRATORY FAILURE/HYPOXIA BILATERAL PNEUMONIA R/O ATYPICAL PNEUMONIA.(HISTORY OF CHANTELL-PARAPSILOSIS PNEUMONIA SEP 2016 S/FOB ) > EXACERBATION OF COPD. > ABDOMINAL PAIN -PARTIAL SMALL BOWEL OBSTRUCTION. (CT ABD /PELVIS-SEE REPORT ) HX OF EXPLORATORY LAP/LYLE AUG 2016. > UROSEPSIS +VE kLEBSIELLA PNEUMONIAE > CHF./CAD. >HISTORY OF SERONEGATIVE LUPUS ON PLAQUENIL. >DEPRESSION/ANXIETY. PLAN; DC iv zOSYN 3.375 EVERY 8 HOURLY 11/08/16-11/13 DC iv zITHROMAX 500 od DAILY 11/09/16.-11/13 DC iv VANCOMYCIN 1 G EVERY 12 HOURLY. 11/09/16. ON IV Bactrim 240 mg TMP/SMX iv PIGGYBACK EVERY 8 HOURLY FOR ?PCP/[facility]SA COVERAGE 11/10/16 START iv CIPRO 400 MG EVERY 12 HOURLY 11/13/16 TO COVER FOR kLEBSIELLA PNEUMONIAE /AND ATYPICAL PATHOGENS. INDUCE SPUTUM gRAM STAIN AND CULTURE .pULMONARY TOILET. MONITOR RENAL FUNCTIONS CLOSELY.
[2016-11-13] MEDS: HYDROmorphone 0.5 mg/0.5 ml ISec IVP PRN ×3 (05:00→17:27)
[2016-11-13] MEDS: Phenylephrine 30 MG in Dextrose 5% In Water 250 ML IV SCH (05:18)
[2016-11-13 06:28] LABS: BASO % 0.2 % (0.0-2.0); EOS % 0.1 % (0.0-4.0); HEMATOCRIT 30.8 % (34.0-47.0); LYMPH # 1.1 K/uL (1.0-4.3); LYMPH % 17.5 % (20.0-40.0); MEAN CELL VOLUME 90.6 fL (81.0-99.0); MEAN CORPUSCULAR HEMOGLOBIN 29.6 pg (27.0-31.0); MEAN CORPUSCULAR HGB CONC 32.7 g/dL (33.0-37.0); MEAN PLATELET VOLUME 7.4 fL (7.2-11.7); MONO # 0.2 K/uL (0.0-0.8); MONO % 2.4 % (0.0-10.0); RED CELL DISTRIBUTION WIDTH 15.7 % (11.5-14.5); WHITE BLOOD COUNT 6.4 K/uL (4.8-10.8)
[2016-11-13 06:38] LABS: CHLORIDE 99 mmol/L (98-107); POTASSIUM 4.1 mmol/L (3.6-5.2); SODIUM 133 mmol/L (132-148)
[2016-11-13 06:40] LABS: BILIRUBIN,TOTAL 0.4 mg/dL (0.2-1.3); GFR AFRICAN-AMERICAN > 60
[2016-11-13 06:41] LABS: ALB/GLOB RATIO 0.7 (1.0-2.1); ALKALINE PHOSPHATASE 88 U/L (38-126); ALT/SGPT 29 U/L (9-52); AST/SGOT 32 U/L (14-36); BLOOD UREA NITROGEN 9 mg/dL (7-17); CALCIUM 7.6 mg/dl (8.6-10.4); CARBON DIOXIDE 32 mmol/L (22-30); GLUCOSE,RANDOM 61 mg/dL (65-105); PHOSPHOROUS 3.4 mg/dL (2.5-4.5); TOTAL PROTEIN 4.5 g/dL (6.3-8.3)
[2016-11-13 06:42] LABS: MAGNESIUM 1.8 mg/dL (1.6-2.3)
--- NOTE | 2016-11-13 09:42 | RAD ---
HISTORY: sob COMPARISON: 11/12/2016 FINDINGS: There is stable position of the right IJV line terminating in the distal SVC. LUNGS: There are diffuse granular opacities in both lungs unchanged since the prior examination. PLEURA: No significant pleural effusion identified, no pneumothorax apparent. CARDIOVASCULAR: The cardiomediastinal silhouette is stable. OSSEOUS STRUCTURES: No significant abnormalities. VISUALIZED UPPER ABDOMEN: Normal. OTHER FINDINGS: None. IMPRESSION: No significant interval change in diffuse granular opacities in both lungs which may represent interstitial lung disease, interstitial edema or interstitial pneumonitis.
[2016-11-13] MEDS: levETIRAcetam 100 mg/ml (5ml) Oral Syringe PO SCH ×2 (09:43→17:26)
[2016-11-13] MEDS: Enoxaparin 40 mg Syringe SC SCH (09:43)
[2016-11-13] MEDS: Saccharomyces Boulardi 250 mg Cap PO SCH (09:43)
--- NOTE | 2016-11-13 11:46 | CP.PCM.PN ---
Subjective - Date & Time of Evaluation Date of Evaluation: 11/13/16 Time of Evaluation: 07:30 - Subjective Subjective: patient seen and examined. Remains short of breath on BiPAP Afebrile Able to eat Denies any abdominal pain Objective - Vital Signs/Intake and Output Vital Signs (last 24 hours): Temp Pulse Resp BP Pulse Ox 97.5 F L 100 H 27 H 95/59 L 97 11/13/16 04:00 11/13/16 07:00 11/13/16 07:00 11/13/16 07:00 11/13/16 07:00 Intake and Output: 11/13/16 11/13/16 06:59 18:59 Intake Total 1010 270 Output Total 1175 300 Balance -165 -30 - Medications Medications: Current Medications Acetaminophen (Tylenol 325mg Tab) 650 mg PO Q6 PRN PRN Reason: Fever >100.4 F Albuterol/Ipratropium (Duoneb 3 Mg/0.5 Mg (3 Ml) Ud) 3 ml INH RQ6 [facility] Last Admin: 11/13/16 08:04 Dose: 3 ml Alprazolam (Xanax) 2 mg PO HS PRN PRN Reason: Anxiety Last Admin: 11/12/16 21:14 Dose: 2 mg Aripiprazole (Abilify) 5 mg PO DAILY [facility] Last Admin: 11/13/16 09:43 Dose: 5 mg Aspirin (Aspirin Chewable) 81 mg PO DAILY [facility] Last Admin: 11/13/16 09:43 Dose: 81 mg Clopidogrel Bisulfate (Plavix) 75 mg PO DAILY [facility] Last Admin: 11/08/16 10:24 Dose: 75 mg Enoxaparin Sodium (Lovenox) 40 mg SC DAILY [facility] Last Admin: 11/13/16 09:43 Dose: 40 mg Famotidine (Pepcid) 20 mg PO BID [facility] Last Admin: 11/13/16 09:43 Dose: 20 mg Hydromorphone HCl (Dilaudid) 0.5 mg IVP Q3H PRN PRN Reason: Pain, moderate (4-7) Last Admin: 11/13/16 11:33 Dose: 0.5 mg Phenylephrine HCl 30 mg/ (Dextrose) 253 mls @ 10.12 mls/hr IV .Q24H [facility]; 20 MCG /MIN PRN Reason: Protocol Last Admin: 11/13/16 05:18 Dose: Not Given Trimethoprim/Sulfamethoxazole (240 mg/ Dextrose) 250 mls @ 200 mls/hr IVPB Q8H [facility] Last Admin: 11/13/16 03:20 Dose: 200 mls/hr Levetiracetam (Keppra) 500 mg PO BID [facility] Last Admin: 11/13/16 09:43 Dose: 500 mg Methylprednisolone (Solu-Medrol) 40 mg IV Q8 [facility] Last Admin: 11/13/16 05:19 Dose: 40 mg Ondansetron HCl (Zofran Inj) 4 mg IVP Q6H PRN PRN Reason: Nausea/Vomiting Last Admin: 11/12/16 20:15 Dose: 4 mg Saccharomyces Boulardii (Florastor) 250 mg PO DAILY [facility] Last Admin: 11/13/16 09:43 Dose: 250 mg Sertraline HCl (Zoloft) 100 mg PO DAILY [facility] Last Admin: 11/13/16 09:45 Dose: 100 mg Spironolactone (Aldactone) 25 mg PO BID [facility] Last Admin: 11/13/16 09:43 Dose: 25 mg - Labs Labs: 11/13/16 06:14 11/13/16 06:15 - Head Exam Head Exam: ATRAUMATIC, NORMOCEPHALIC - Eye Exam Eye Exam: Normal appearance - ENT Exam ENT Exam: Mucous Membranes Moist - Neck Exam Neck Exam: Normal Inspection - Respiratory Exam Respiratory Exam: Rales - Cardiovascular Exam Cardiovascular Exam: REGULAR RHYTHM - GI/Abdominal Exam GI & Abdominal Exam: Soft, Normal Bowel Sounds - Extremities Exam Extremities Exam: Pedal Edema Assessment and Plan (1) Respiratory insufficiency Assessment & Plan: Remains short of breath on BiPAP Covered for atypical, PCP and staph infection [facility] [place] [facility], bronchoscopy and open lung biopsy(patient will discuss with family.) Thoracic evaluation continue antibiotics per ID continue IV steroids Status: Acute (2) Bilateral pneumonia Status: Acute (3) Small bowel obstruction Status: Acute
--- NOTE | 2016-11-13 11:47 | CP.PCM.PN ---
Subjective - Date & Time of Evaluation Date of Evaluation: 11/13/16 Time of Evaluation: 11:43 - Subjective Subjective: General Surgery - Dr. Caraballo Pt S&E. NAEO. Pt currently on bipap, saturating in upper 90s but quickly desats into 70s/80s without bipap. ICU planning for bronch in future. Pt currently denies any abdominal pain. Abdomen is soft, nondistended, and she is tolerating full liquid diet. Objective - Vital Signs/Intake and Output Vital Signs (last 24 hours): Temp Pulse Resp BP Pulse Ox 97.5 F L 100 H 27 H 95/59 L 97 11/13/16 04:00 11/13/16 07:00 11/13/16 07:00 11/13/16 07:00 11/13/16 07:00 Intake and Output: 11/13/16 11/13/16 06:59 18:59 Intake Total 1010 270 Output Total 1175 300 Balance -165 -30 - Medications Medications: Current Medications Acetaminophen (Tylenol 325mg Tab) 650 mg PO Q6 PRN PRN Reason: Fever >100.4 F Albuterol/Ipratropium (Duoneb 3 Mg/0.5 Mg (3 Ml) Ud) 3 ml INH RQ6 [facility] Last Admin: 11/13/16 08:04 Dose: 3 ml Alprazolam (Xanax) 2 mg PO HS PRN PRN Reason: Anxiety Last Admin: 11/12/16 21:14 Dose: 2 mg Aripiprazole (Abilify) 5 mg PO DAILY [facility] Last Admin: 11/13/16 09:43 Dose: 5 mg Aspirin (Aspirin Chewable) 81 mg PO DAILY [facility] Last Admin: 11/13/16 09:43 Dose: 81 mg Clopidogrel Bisulfate (Plavix) 75 mg PO DAILY [facility] Last Admin: 11/08/16 10:24 Dose: 75 mg Enoxaparin Sodium (Lovenox) 40 mg SC DAILY [facility] Last Admin: 11/13/16 09:43 Dose: 40 mg Famotidine (Pepcid) 20 mg PO BID [facility] Last Admin: 11/13/16 09:43 Dose: 20 mg Hydromorphone HCl (Dilaudid) 0.5 mg IVP Q3H PRN PRN Reason: Pain, moderate (4-7) Last Admin: 11/13/16 11:33 Dose: 0.5 mg Phenylephrine HCl 30 mg/ (Dextrose) 253 mls @ 10.12 mls/hr IV .Q24H [facility]; 20 MCG /MIN PRN Reason: Protocol Last Admin: 11/13/16 05:18 Dose: Not Given Trimethoprim/Sulfamethoxazole (240 mg/ Dextrose) 250 mls @ 200 mls/hr IVPB Q8H [facility] Last Admin: 11/13/16 03:20 Dose: 200 mls/hr Levetiracetam (Keppra) 500 mg PO BID [facility] Last Admin: 11/13/16 09:43 Dose: 500 mg Methylprednisolone (Solu-Medrol) 40 mg IV Q8 [facility] Last Admin: 11/13/16 05:19 Dose: 40 mg Ondansetron HCl (Zofran Inj) 4 mg IVP Q6H PRN PRN Reason: Nausea/Vomiting Last Admin: 11/12/16 20:15 Dose: 4 mg Saccharomyces Boulardii (Florastor) 250 mg PO DAILY [facility] Last Admin: 11/13/16 09:43 Dose: 250 mg Sertraline HCl (Zoloft) 100 mg PO DAILY [facility] Last Admin: 11/13/16 09:45 Dose: 100 mg Spironolactone (Aldactone) 25 mg PO BID [facility] Last Admin: 11/13/16 09:43 Dose: 25 mg - Labs Labs: 11/13/16 06:14 11/13/16 06:15 - Constitutional Appears: No Acute Distress - Head Exam Head Exam: ATRAUMATIC, NORMOCEPHALIC - Respiratory Exam Respiratory Exam: absent: Respiratory Distress Additional comments: on bipap - Cardiovascular Exam Cardiovascular Exam: REGULAR RHYTHM - GI/Abdominal Exam GI & Abdominal Exam: Soft. absent: Distended, Tenderness - Neurological Exam Neurological Exam: Alert, Oriented x3 - Psychiatric Exam Psychiatric exam: Normal Affect, Normal Mood - Skin Skin Exam: Dry, Intact Assessment and Plan - Assessment and Plan (Free Text) Assessment: 51 y/o F w/ partial SBO, resolved Plan: -Continue full liquid diet and supplements per now -Continue care as per pulm/icu team -No plans for general surgery interventions -Thoracic surgery consulted for lung biopsy -Will continue to follow the pt. -YAZMIN Medrano PGY2
--- NOTE | 2016-11-13 16:57 | CP.CCUPN ---
<Mariana Robison - Last Filed: 11/13/16 16:54> CCU Subjective - Physician Review Events Since Last Encounter (Free Text): 11/13/16 16:56 More Bipap use overnight. Subjective (Free Text): 11/10/16 12:04 Pt S & E this AM. Reports ab pain and SOB improved- on VTM. Had soft unformed BMs x 2 yesterday, 1 liquid stool today with large volume flatus. Denies N/V/F/C, chest pain. 11/11/16 12:38 Pt S & E this AM. Pt reports having 3 liquid stools yesterday, continues to require VTM 2/2 SOB, insomnia. Abdominal pain much improved, abdominal distention much improved. Denies N/V/F/C, chest pain. 11/12/16 14:26 Pt S & E this AM. Pt reports continued SOB, likes being on Bipap 2/2 less work to breathe. Ab pain improved, continues with liquid stools, now has non productive cough. 11/13/16 16:55 Pt S & E this AM. Pt continues w/SOB requiring Bipap overnight, using more Bipap vs. VTM mask, states she had insomnia overnight 2/2 SOB, needing to focus on breathing. Abdominal pain resolved. Had slight nausea yesterday with protein supplement. Had 1 liquid BM yesterday. Denies emesis, fevers, chills, chest pain. Critical Care Time Spent (in minutes): 60 CCU Objective - Vital Signs / Intake & Output Vital Signs (Last 4 hours): Vital Signs Pulse 11/13/16 16:22 100 H 11/13/16 13:55 103 H Intake and Output (Last 8hrs): Intake & Output 11/13/16 11/13/16 11/13/16 06:59 14:59 22:59 Intake Total 450 270 Output Total 825 300 Balance -375 -30 Weight 59.3 kg Intake: Intake, IV Amount 300 Right Distal Port 300 Internal Jugular Oral 150 270 Output: Urine 825 300 Urethral (Mishra) 825 300 Emesis 0 Other: # Bowel Movements 0 - Physical Exam Head: Positive for: Atraumatic, Normocephalic Pupils: Positive for: PERRL Extroacular Muscles: Positive for: EOMI Conjunctiva: Positive for: Normal Ears: Positive for: Normal Mouth: Positive for: Moist Mucous Membranes Pharnyx: Positive for: Normal Nose (External): Positive for: Atraumatic Neck: Positive for: Normal Range of Motion, Trachea Midline Respiratory/Chest: Positive for: Accessory Muscle Use, Decreased Breath Sounds, Tachypneic, Other (on VTM ). Negative for: Clear to Auscultation (coarse BS), Good Air Exchange (decreased), Respiratory Distress, Rales, Rhonchi Cardiovascular: Positive for: Normal S1, S2, Tachycardic. Negative for: Murmurs Abdomen: Positive for: Normal Bowel Sounds. Negative for: Tenderness, Distention, Peritoneal Signs, Rebound, Guarding Upper Extremity: Positive for: Normal Inspection. Negative for: Cyanosis, Edema Lower Extremity: Positive for: Normal Inspection, Edema (B/L, minimal) Neurological: Positive for: GCS=15, CN II-XII Intact, Speech Normal Skin: Positive for: Warm, Dry, Normal Color. Negative for: Rashes Psychiatric: Positive for: Alert, Oriented x 3, Normal Insight, Normal Concentration - Medications Active Medications: Active Medications Generic Name Dose Route Start Last Admin Trade Name Freq PRN Reason Stop Dose Admin Acetaminophen 650 mg 11/08/16 20:26 Tylenol 325mg Tab PO Q6 PRN Fever >100.4 F Albuterol/Ipratropium 3 ml 11/09/16 02:00 11/13/16 08:04 Duoneb 3 Mg/0.5 Mg (3 Ml) Ud INH 3 ml RQ6 [facility] Administration Alprazolam 2 mg 11/07/16 19:14 11/12/16 21:14 Xanax PO 2 mg HS PRN Administration Anxiety Aripiprazole 5 mg 11/07/16 10:00 11/13/16 09:43 Abilify PO 5 mg DAILY [facility] Administration Aspirin 81 mg 11/07/16 10:00 11/13/16 09:43 Aspirin Chewable PO 81 mg DAILY [facility] Administration Clopidogrel Bisulfate 75 mg 11/07/16 10:00 11/08/16 10:24 Plavix PO 75 mg DAILY [facility] Administration Enoxaparin Sodium 40 mg 11/07/16 10:00 11/13/16 09:43 Lovenox SC 40 mg DAILY [facility] Administration Famotidine 20 mg 11/07/16 10:00 11/13/16 09:43 Pepcid PO 20 mg BID [facility] Administration Hydromorphone HCl 0.5 mg 11/10/16 15:23 11/13/16 11:33 Dilaudid IVP 0.5 mg Q3H PRN Administration Pain, moderate (4-7) Trimethoprim/Sulfamethoxazole 250 mls @ 200 mls/hr 11/11/16 03:30 11/13/16 12: 00 240 mg/ Dextrose IVPB 200 mls/hr Q8H [facility] Administration Levetiracetam 500 mg 11/09/16 18:00 11/13/16 09:43 Keppra PO 500 mg BID [facility] Administration Methylprednisolone 40 mg 11/09/16 14:00 11/13/16 14:14 Solu-Medrol IV 40 mg Q8 [facility] Administration Ondansetron HCl 4 mg 11/12/16 19:35 11/13/16 14:14 Zofran Inj IVP 4 mg Q6H PRN Administration Nausea/Vomiting Saccharomyces Boulardii 250 mg 11/11/16 12:30 11/13/16 09:43 Florastor PO 250 mg DAILY [facility] Administration Sertraline HCl 100 mg 11/07/16 10:00 11/13/16 09:45 Zoloft PO 100 mg DAILY [facility] Administration Spironolactone 25 mg 11/08/16 18:00 11/13/16 09:43 Aldactone PO 25 mg BID [facility] Administration - Patient Studies Lab Studies: Microbiology Studies 11/08/16 18:00 Blood Culture - Preliminary Blood-Venous NO GROWTH AFTER 4 DAYS 11/08/16 18:30 Blood Culture - Preliminary Blood-Venous NO GROWTH AFTER 4 DAYS Lab Studies 11/13/16 11/13/16 11/12/16 Range/Units 06:15 06:14 22:47 WBC 6.4 (4.8-10.8) K/uL RBC 3.40 L (3.80-5.20) Mil/uL Hgb 10.1 L (11.0-16.0) g/dL Hct 30.8 L (34.0-47.0) % MCV 90.6 (81.0-99.0) fL MCH 29.6 (27.0-31.0) pg MCHC 32.7 L (33.0-37.0) g/dL RDW 15.7 H (11.5-14.5) % Plt Count 249 (130-400) K/uL MPV 7.4 (7.2-11.7) fL Neut % (Auto) 79.8 H (50.0-75.0) % Lymph % (Auto) 17.5 L (20.0-40.0) % [place] % (Auto) 2.4 (0.0-10.0) % Eos % (Auto) 0.1 (0.0-4.0) % Baso % (Auto) 0.2 (0.0-2.0) % Neut # 5.1 (1.8-7.0) K/uL Lymph # 1.1 (1.0-4.3) K/uL [place] # 0.2 (0.0-0.8) K/uL Eos # 0.0 (0.0-0.7) K/uL Baso # 0.0 (0.0-0.2) K/uL Puncture Site Femoral pCO2 42 (35-45) mm/Hg pO2 87 (80-100) mm/Hg HCO3 26.3 (21-28) mmol/L ABG pH 7.41 (7.35-7.45) ABG Total CO2 27.9 (22-28) mmol/L ABG O2 Saturation 97.2 (95-98) % ABG Base Excess 1.8 (-2.0-3.0) mmol/L ABG Hemoglobin 8.5 L (11.7-17.4) g/dL ABG Carboxyhemoglobin 0.9 (0.5-1.5) % POC ABG HHb (Measured) 2.7 (0.0-5.0) % ABG Methemoglobin 1.1 (0.0-3.0) % Reese Test Na A-a O2 Difference 574.0 mm/Hg Respiratory Index 6.6 Hgb O2 Saturation 95.4 (95.0-98.0) % FiO2 100.0 % Sodium 133 (132-148) mmol/L Potassium 4.1 (3.6-5.2) mmol/L Chloride 99 (98-107) mmol/L Carbon Dioxide 32 H (22-30) mmol/L Anion Gap 6 L (10-20) BUN 9 (7-17) mg/dL Creatinine 0.7 (0.7-1.2) MG/DL Est GFR ( Amer) > 60 Est GFR (Non-Af Amer) > 60 Random Glucose 61 L (65-105) mg/dL Calcium 7.6 L (8.6-10.4) mg/dl Phosphorus 3.4 (2.5-4.5) mg/dL Magnesium 1.8 (1.6-2.3) mg/dL Total Bilirubin 0.4 (0.2-1.3) mg/dL AST 32 (14-36) U/L ALT 29 (9-52) U/L Alkaline Phosphatase 88 (38-126) U/L Total Protein 4.5 L (6.3-8.3) g/dL Albumin 1.9 L (3.5-5.0) g/dL Globulin 2.6 (2.2-3.9) gm/dL Albumin/Globulin Ratio 0.7 L (1.0-2.1) Laboratory Results - last 24 hr 11/12/16 11/13/16 11/13/16 22:47 06:14 06:15 WBC 6.4 RBC 3.40 L Hgb 10.1 L Hct 30.8 L MCV 90.6 MCH 29.6 MCHC 32.7 L RDW 15.7 H Plt Count 249 MPV 7.4 Neut % (Auto) 79.8 H Lymph % (Auto) 17.5 L [place] % (Auto) 2.4 Eos % (Auto) 0.1 Baso % (Auto) 0.2 Neut # 5.1 Lymph # 1.1 [place] # 0.2 Eos # 0.0 Baso # 0.0 Puncture Site Femoral pCO2 42 pO2 87 HCO3 26.3 ABG pH 7.41 ABG Total CO2 27.9 ABG O2 Saturation 97.2 ABG Base Excess 1.8 ABG Hemoglobin 8.5 L ABG Carboxyhemoglobin 0.9 POC ABG HHb (Measured) 2.7 ABG Methemoglobin 1.1 Reese Test Na A-a O2 Difference 574.0 Respiratory Index 6.6 Hgb O2 Saturation 95.4 FiO2 100.0 Sodium 133 Potassium 4.1 Chloride 99 Carbon Dioxide 32 H Anion Gap 6 L BUN 9 Creatinine 0.7 Est GFR ( Amer) > 60 Est GFR (Non-Af Amer) > 60 Random Glucose 61 L Calcium 7.6 L Phosphorus 3.4 Magnesium 1.8 Total Bilirubin 0.4 AST 32 ALT 29 Alkaline Phosphatase 88 Total Protein 4.5 L Albumin 1.9 L Globulin 2.6 Albumin/Globulin Ratio 0.7 L Review of Systems - Review of Systems All systems: reviewed and no additional remarkable complaints except Review of Systems: as per [facility] Critical Care Progress Note - Ventilator Checklist Head of Bed 30 Degrees: Yes Daily Sedation Vacation: No (Not sedated) PUD Prophalyxis: Yes DVT Prophylaxis: Yes - Extremities/Vascular Does the Patient have a Central Venous Catheter?: Yes Does the Patient need a Central Venous Catheter?: Yes (vascular access) Does the Patient have a Mishra Catheter?: No Does the Patient need a Mishra Catheter?: No - Prophylaxis GI Prophylaxis GI: Pepsid - Prophylaxis DVT Prophylaxis DVT: Lovenox - Nutrition Nutrition: Nutrition Category Date Time Status Liquid Diet [DIET] Diets 11/11/16 Breakfast Active Assessment/Plan - Assessment and Plan (Free Text) Assessment: 51F w/respiratory distress, SBO- worsening overnight, on Bipap. Continues to de -saturate, have tachypenia, accessory muscle use. Will plan on re-tubation on Wednesday for bronch, then lung bx on Wednesday. Plan: Neuro Awake Alert Stable Cont home meds: Zoloft, Xanax, Abilify, Keppra Seizure precautions Monitor CVS BP labile ASA Plavix held Monitor Pulm Continues to require VTM with Bipap periodically and overnight Duonebs SOlu-medrol CXR - No sig interval change in diffuse granular opacitiies in both lungs, which may represent interstitial lung disease, interstitial edema or interstitial pneumonitis Pulm following- plans for bronch Mon, will intubate then Nephro Electrolytes WNL Spironolactone Monitor GI Full liquid diet Supplements Probiotic Zofran Hepatobiliary surgery following Gen surg following- SBO mgmt as per surgery Voids on own MOnitor Heme Hgb 10.1 Hct 30.8 Monitor Endo Sugars WNL Monitor MSK Monitor for skin break down ID Urine cx - Klebsiella PNA No leukocytosis Afebrile over last 24H Zosyn- d/c'd Azithromycin- d/c'd Bactrim Tylenol PRN Blood cx neg x 4D FU Legionella ID following GI/DVT ppx Pepcid Lovenox Dispo: Continue ICU care Will re-intubate Wednesday for bronch, plans for Lung bx Wednesday Type and cross ordered for Wednesday AM DW attending - Date & Time Date: 11/13/16 Time: 06:45 <Wendy Michael - Last Filed: 11/13/16 18:28> CCU Subjective - Physician Review Events Since Last Encounter (Free Text): 11/13/16 18:26 patient seen and examined in am, agree with resident's note except for any discrepancies below noted. respiratory failure not improving, need bpap, discussed with dr. costello and dr. recinos for bronchoscopy and thoracotomy for tissue sampling since we have no diagnosis and she has fallen very sick in the past with same pattern, will do in on wednesday-wednesday, patient in agreement. continue lasix, sob resolved CCU Objective - Vital Signs / Intake & Output Vital Signs (Last 4 hours): Vital Signs Pulse Resp BP Pulse Ox 11/13/16 18:00 102 H 28 H 96/58 L 91 L 11/13/16 17:00 97 H 23 97 11/13/16 16:57 94 H 22 97/63 L 97 11/13/16 16:22 100 H 11/13/16 16:00 94 H 20 99 11/13/16 15:58 92 H 22 89/59 L 98 11/13/16 15:00 98 H 25 H 100 11/13/16 14:58 97 H 23 92/67 L 97 Intake and Output (Last 8hrs): Intake & Output 11/13/16 11/13/16 11/13/16 06:59 14:59 22:59 Intake Total 450 430 240 Output Total 825 420 130 Balance -375 10 110 Weight 130 lb 11.746 oz Intake: Intake, IV Amount 300 Right Distal Port 300 Internal Jugular Oral 150 430 240 Output: Urine 825 420 130 Urethral (Mishra) 825 420 130 Emesis 0 0 Other: # Bowel Movements 0 0 - Medications Active Medications: Active Medications Generic Name Dose Route Start Last Admin Trade Name Freq PRN Reason Stop Dose Admin Acetaminophen 650 mg 11/08/16 20:26 Tylenol 325mg Tab PO Q6 PRN Fever >100.4 F Albuterol/Ipratropium 3 ml 11/09/16 02:00 11/13/16 15:45 Duoneb 3 Mg/0.5 Mg (3 Ml) Ud INH 3 ml RQ6 [facility] Administration Alprazolam 2 mg 11/07/16 19:14 11/12/16 21:14 Xanax PO 2 mg HS PRN Administration Anxiety Aripiprazole 5 mg 11/07/16 10:00 11/13/16 09:43 Abilify PO 5 mg DAILY [facility] Administration Aspirin 81 mg 11/07/16 10:00 11/13/16 09:43 Aspirin Chewable PO 81 mg DAILY [facility] Administration Clopidogrel Bisulfate 75 mg 11/07/16 10:00 11/08/16 10:24 Plavix PO 75 mg DAILY [facility] Administration Enoxaparin Sodium 40 mg 11/07/16 10:00 11/13/16 09:43 Lovenox SC 40 mg DAILY [facility] Administration Famotidine 20 mg 11/07/16 10:00 11/13/16 17:26 Pepcid PO 20 mg BID [facility] Administration Hydromorphone HCl 0.5 mg 11/10/16 15:23 11/13/16 17:27 Dilaudid IVP 0.5 mg Q3H PRN Administration Pain, moderate (4-7) Trimethoprim/Sulfamethoxazole 250 mls @ 200 mls/hr 11/11/16 03:30 11/13/16 12: 00 240 mg/ Dextrose IVPB 200 mls/hr Q8H [facility] Administration Levetiracetam 500 mg 11/09/16 18:00 11/13/16 17:26 Keppra PO 500 mg BID [facility] Administration Methylprednisolone 40 mg 11/09/16 14:00 11/13/16 14:14 Solu-Medrol IV 40 mg Q8 [facility] Administration Ondansetron HCl 4 mg 11/12/16 19:35 11/13/16 14:14 Zofran Inj IVP 4 mg Q6H PRN Administration Nausea/Vomiting Saccharomyces Boulardii 250 mg 11/11/16 12:30 11/13/16 09:43 Florastor PO 250 mg DAILY [facility] Administration Sertraline HCl 100 mg 11/07/16 10:00 11/13/16 09:45 Zoloft PO 100 mg DAILY [facility] Administration Spironolactone 25 mg 11/08/16 18:00 11/13/16 17:26 Aldactone PO 25 mg BID [facility] Administration - Patient Studies Lab Studies: Microbiology Studies 11/08/16 18:00 Blood Culture - Preliminary Blood-Venous NO GROWTH AFTER 4 DAYS 11/08/16 18:30 Blood Culture - Preliminary Blood-Venous NO GROWTH AFTER 4 DAYS Lab Studies 11/13/16 11/13/16 11/12/16 Range/Units 06:15 06:14 22:47 WBC 6.4 (4.8-10.8) K/uL RBC 3.40 L (3.80-5.20) Mil/uL Hgb 10.1 L (11.0-16.0) g/dL Hct 30.8 L (34.0-47.0) % MCV 90.6 (81.0-99.0) fL MCH 29.6 (27.0-31.0) pg MCHC 32.7 L (33.0-37.0) g/dL RDW 15.7 H (11.5-14.5) % Plt Count 249 (130-400) K/uL MPV 7.4 (7.2-11.7) fL Neut % (Auto) 79.8 H (50.0-75.0) % Lymph % (Auto) 17.5 L (20.0-40.0) % [place] % (Auto) 2.4 (0.0-10.0) % Eos % (Auto) 0.1 (0.0-4.0) % Baso % (Auto) 0.2 (0.0-2.0) % Neut # 5.1 (1.8-7.0) K/uL Lymph # 1.1 (1.0-4.3) K/uL [place] # 0.2 (0.0-0.8) K/uL Eos # 0.0 (0.0-0.7) K/uL Baso # 0.0 (0.0-0.2) K/uL Puncture Site Femoral pCO2 42 (35-45) mm/Hg pO2 87 (80-100) mm/Hg HCO3 26.3 (21-28) mmol/L ABG pH 7.41 (7.35-7.45) ABG Total CO2 27.9 (22-28) mmol/L ABG O2 Saturation 97.2 (95-98) % ABG Base Excess 1.8 (-2.0-3.0) mmol/L ABG Hemoglobin 8.5 L (11.7-17.4) g/dL ABG Carboxyhemoglobin 0.9 (0.5-1.5) % POC ABG HHb (Measured) 2.7 (0.0-5.0) % ABG Methemoglobin 1.1 (0.0-3.0) % Reese Test Na A-a O2 Difference 574.0 mm/Hg Respiratory Index 6.6 Hgb O2 Saturation 95.4 (95.0-98.0) % FiO2 100.0 % Sodium 133 (132-148) mmol/L Potassium 4.1 (3.6-5.2) mmol/L Chloride 99 (98-107) mmol/L Carbon Dioxide 32 H (22-30) mmol/L Anion Gap 6 L (10-20) BUN 9 (7-17) mg/dL Creatinine 0.7 (0.7-1.2) MG/DL Est GFR ( Amer) > 60 Est GFR (Non-Af Amer) > 60 Random Glucose 61 L (65-105) mg/dL Calcium 7.6 L (8.6-10.4) mg/dl Phosphorus 3.4 (2.5-4.5) mg/dL Magnesium 1.8 (1.6-2.3) mg/dL Total Bilirubin 0.4 (0.2-1.3) mg/dL AST 32 (14-36) U/L ALT 29 (9-52) U/L Alkaline Phosphatase 88 (38-126) U/L Total Protein 4.5 L (6.3-8.3) g/dL Albumin 1.9 L (3.5-5.0) g/dL Globulin 2.6 (2.2-3.9) gm/dL Albumin/Globulin Ratio 0.7 L (1.0-2.1) Laboratory Results - last 24 hr 11/12/16 11/13/16 11/13/16 22:47 06:14 06:15 WBC 6.4 RBC 3.40 L Hgb 10.1 L Hct 30.8 L MCV 90.6 MCH 29.6 MCHC 32.7 L RDW 15.7 H Plt Count 249 MPV 7.4 Neut % (Auto) 79.8 H Lymph % (Auto) 17.5 L [place] % (Auto) 2.4 Eos % (Auto) 0.1 Baso % (Auto) 0.2 Neut # 5.1 Lymph # 1.1 [place] # 0.2 Eos # 0.0 Baso # 0.0 Puncture Site Femoral pCO2 42 pO2 87 HCO3 26.3 ABG pH 7.41 ABG Total CO2 27.9 ABG O2 Saturation 97.2 ABG Base Excess 1.8 ABG Hemoglobin 8.5 L ABG Carboxyhemoglobin 0.9 POC ABG HHb (Measured) 2.7 ABG Methemoglobin 1.1 Reese Test Na A-a O2 Difference 574.0 Respiratory Index 6.6 Hgb O2 Saturation 95.4 FiO2 100.0 Sodium 133 Potassium 4.1 Chloride 99 Carbon Dioxide 32 H Anion Gap 6 L BUN 9 Creatinine 0.7 Est GFR ( Amer) > 60 Est GFR (Non-Af Amer) > 60 Random Glucose 61 L Calcium 7.6 L Phosphorus 3.4 Magnesium 1.8 Total Bilirubin 0.4 AST 32 ALT 29 Alkaline Phosphatase 88 Total Protein 4.5 L Albumin 1.9 L Globulin 2.6 Albumin/Globulin Ratio 0.7 L Critical Care Progress Note - Nutrition Nutrition: Nutrition Category Date Time Status Liquid Diet [DIET] Diets 11/11/16 Breakfast Active
--- NOTE | 2016-11-13 18:26 | CP.CCUPN ---
CCU Objective - Vital Signs / Intake & Output Vital Signs (Last 4 hours): Vital Signs Pulse 11/13/16 16:22 100 H Intake and Output (Last 8hrs): Intake & Output 11/13/16 11/13/16 11/13/16 06:59 14:59 22:59 Intake Total 450 430 240 Output Total 825 420 130 Balance -375 10 110 Weight 130 lb 11.746 oz Intake: Intake, IV Amount 300 Right Distal Port 300 Internal Jugular Oral 150 430 240 Output: Urine 825 420 130 Urethral (Mishra) 825 420 130 Emesis 0 0 Other: # Bowel Movements 0 0 - Physical Exam Head: Positive for: Atraumatic, Normocephalic Pupils: Positive for: PERRL Extroacular Muscles: Positive for: EOMI Conjunctiva: Positive for: Normal Ears: Positive for: Normal Mouth: Positive for: Moist Mucous Membranes Pharnyx: Positive for: Normal Nose (External): Positive for: Atraumatic Neck: Positive for: Normal Range of Motion, Trachea Midline Respiratory/Chest: Positive for: Accessory Muscle Use, Decreased Breath Sounds, Tachypneic, Other (on VTM ). Negative for: Clear to Auscultation (coarse BS), Good Air Exchange (decreased), Respiratory Distress, Rales, Rhonchi Cardiovascular: Positive for: Normal S1, S2, Tachycardic. Negative for: Murmurs Abdomen: Positive for: Normal Bowel Sounds. Negative for: Tenderness, Distention, Peritoneal Signs, Rebound, Guarding Upper Extremity: Positive for: Normal Inspection. Negative for: Cyanosis, Edema Lower Extremity: Positive for: Normal Inspection, Edema (B/L, minimal) Neurological: Positive for: GCS=15, CN II-XII Intact, Speech Normal Skin: Positive for: Warm, Dry, Normal Color. Negative for: Rashes Psychiatric: Positive for: Alert, Oriented x 3, Normal Insight, Normal Concentration - Medications Active Medications: Active Medications Generic Name Dose Route Start Last Admin Trade Name Freq PRN Reason Stop Dose Admin Acetaminophen 650 mg 11/08/16 20:26 Tylenol 325mg Tab PO Q6 PRN Fever >100.4 F Albuterol/Ipratropium 3 ml 11/09/16 02:00 11/13/16 15:45 Duoneb 3 Mg/0.5 Mg (3 Ml) Ud INH 3 ml RQ6 [facility] Administration Alprazolam 2 mg 11/07/16 19:14 11/12/16 21:14 Xanax PO 2 mg HS PRN Administration Anxiety Aripiprazole 5 mg 11/07/16 10:00 11/13/16 09:43 Abilify PO 5 mg DAILY [facility] Administration Aspirin 81 mg 11/07/16 10:00 11/13/16 09:43 Aspirin Chewable PO 81 mg DAILY [facility] Administration Clopidogrel Bisulfate 75 mg 11/07/16 10:00 11/08/16 10:24 Plavix PO 75 mg DAILY [facility] Administration Enoxaparin Sodium 40 mg 11/07/16 10:00 11/13/16 09:43 Lovenox SC 40 mg DAILY [facility] Administration Famotidine 20 mg 11/07/16 10:00 11/13/16 17:26 Pepcid PO 20 mg BID [facility] Administration Hydromorphone HCl 0.5 mg 11/10/16 15:23 11/13/16 17:27 Dilaudid IVP 0.5 mg Q3H PRN Administration Pain, moderate (4-7) Trimethoprim/Sulfamethoxazole 250 mls @ 200 mls/hr 11/11/16 03:30 11/13/16 12: 00 240 mg/ Dextrose IVPB 200 mls/hr Q8H [facility] Administration Levetiracetam 500 mg 11/09/16 18:00 11/13/16 17:26 Keppra PO 500 mg BID [facility] Administration Methylprednisolone 40 mg 11/09/16 14:00 11/13/16 14:14 Solu-Medrol IV 40 mg Q8 [facility] Administration Ondansetron HCl 4 mg 11/12/16 19:35 11/13/16 14:14 Zofran Inj IVP 4 mg Q6H PRN Administration Nausea/Vomiting Saccharomyces Boulardii 250 mg 11/11/16 12:30 11/13/16 09:43 Florastor PO 250 mg DAILY [facility] Administration Sertraline HCl 100 mg 11/07/16 10:00 11/13/16 09:45 Zoloft PO 100 mg DAILY [facility] Administration Spironolactone 25 mg 11/08/16 18:00 11/13/16 17:26 Aldactone PO 25 mg BID [facility] Administration - Patient Studies Lab Studies: Microbiology Studies 11/08/16 18:00 Blood Culture - Preliminary Blood-Venous NO GROWTH AFTER 4 DAYS 11/08/16 18:30 Blood Culture - Preliminary Blood-Venous NO GROWTH AFTER 4 DAYS Lab Studies 11/13/16 11/13/16 11/12/16 Range/Units 06:15 06:14 22:47 WBC 6.4 (4.8-10.8) K/uL RBC 3.40 L (3.80-5.20) Mil/uL Hgb 10.1 L (11.0-16.0) g/dL Hct 30.8 L (34.0-47.0) % MCV 90.6 (81.0-99.0) fL MCH 29.6 (27.0-31.0) pg MCHC 32.7 L (33.0-37.0) g/dL RDW 15.7 H (11.5-14.5) % Plt Count 249 (130-400) K/uL MPV 7.4 (7.2-11.7) fL Neut % (Auto) 79.8 H (50.0-75.0) % Lymph % (Auto) 17.5 L (20.0-40.0) % [place] % (Auto) 2.4 (0.0-10.0) % Eos % (Auto) 0.1 (0.0-4.0) % Baso % (Auto) 0.2 (0.0-2.0) % Neut # 5.1 (1.8-7.0) K/uL Lymph # 1.1 (1.0-4.3) K/uL [place] # 0.2 (0.0-0.8) K/uL Eos # 0.0 (0.0-0.7) K/uL Baso # 0.0 (0.0-0.2) K/uL Puncture Site Femoral pCO2 42 (35-45) mm/Hg pO2 87 (80-100) mm/Hg HCO3 26.3 (21-28) mmol/L ABG pH 7.41 (7.35-7.45) ABG Total CO2 27.9 (22-28) mmol/L ABG O2 Saturation 97.2 (95-98) % ABG Base Excess 1.8 (-2.0-3.0) mmol/L ABG Hemoglobin 8.5 L (11.7-17.4) g/dL ABG Carboxyhemoglobin 0.9 (0.5-1.5) % POC ABG HHb (Measured) 2.7 (0.0-5.0) % ABG Methemoglobin 1.1 (0.0-3.0) % Reese Test Na A-a O2 Difference 574.0 mm/Hg Respiratory Index 6.6 Hgb O2 Saturation 95.4 (95.0-98.0) % FiO2 100.0 % Sodium 133 (132-148) mmol/L Potassium 4.1 (3.6-5.2) mmol/L Chloride 99 (98-107) mmol/L Carbon Dioxide 32 H (22-30) mmol/L Anion Gap 6 L (10-20) BUN 9 (7-17) mg/dL Creatinine 0.7 (0.7-1.2) MG/DL Est GFR ( Amer) > 60 Est GFR (Non-Af Amer) > 60 Random Glucose 61 L (65-105) mg/dL Calcium 7.6 L (8.6-10.4) mg/dl Phosphorus 3.4 (2.5-4.5) mg/dL Magnesium 1.8 (1.6-2.3) mg/dL Total Bilirubin 0.4 (0.2-1.3) mg/dL AST 32 (14-36) U/L ALT 29 (9-52) U/L Alkaline Phosphatase 88 (38-126) U/L Total Protein 4.5 L (6.3-8.3) g/dL Albumin 1.9 L (3.5-5.0) g/dL Globulin 2.6 (2.2-3.9) gm/dL Albumin/Globulin Ratio 0.7 L (1.0-2.1) Laboratory Results - last 24 hr 11/12/16 11/13/16 11/13/16 22:47 06:14 06:15 WBC 6.4 RBC 3.40 L Hgb 10.1 L Hct 30.8 L MCV 90.6 MCH 29.6 MCHC 32.7 L RDW 15.7 H Plt Count 249 MPV 7.4 Neut % (Auto) 79.8 H Lymph % (Auto) 17.5 L [place] % (Auto) 2.4 Eos % (Auto) 0.1 Baso % (Auto) 0.2 Neut # 5.1 Lymph # 1.1 [place] # 0.2 Eos # 0.0 Baso # 0.0 Puncture Site Femoral pCO2 42 pO2 87 HCO3 26.3 ABG pH 7.41 ABG Total CO2 27.9 ABG O2 Saturation 97.2 ABG Base Excess 1.8 ABG Hemoglobin 8.5 L ABG Carboxyhemoglobin 0.9 POC ABG HHb (Measured) 2.7 ABG Methemoglobin 1.1 Reese Test Na A-a O2 Difference 574.0 Respiratory Index 6.6 Hgb O2 Saturation 95.4 FiO2 100.0 Sodium 133 Potassium 4.1 Chloride 99 Carbon Dioxide 32 H Anion Gap 6 L BUN 9 Creatinine 0.7 Est GFR ( Amer) > 60 Est GFR (Non-Af Amer) > 60 Random Glucose 61 L Calcium 7.6 L Phosphorus 3.4 Magnesium 1.8 Total Bilirubin 0.4 AST 32 ALT 29 Alkaline Phosphatase 88 Total Protein 4.5 L Albumin 1.9 L Globulin 2.6 Albumin/Globulin Ratio 0.7 L Critical Care Progress Note - Nutrition Nutrition: Nutrition Category Date Time Status Liquid Diet [DIET] Diets 11/11/16 Breakfast Active Attending/Attestation - Attestation I have personally seen and examined this patient.: Yes I have fully participated in the care of the patient.: Yes I have reviewed all pertinent clinical information: Yes Notes (Text): 11/13/16 18:24 patient seen and examined in [facility]
[2016-11-13] MEDS: Dextrose 5%/0.45% NS 1,000 ML IV SCH (19:34)
[2016-11-13] MEDS: Morphine 4 MG/ML VIAL IVP PRN (22:47)
[2016-11-14] MEDS: Albuterol-Ipratrop 3 mg / 0.5 (3 ml) UD INH SCH ×4 (01:19→19:33)
[2016-11-14] MEDS: Sulfamethoxazole/Trimethoprim 240 MG in Dextrose 5% In Water 250 ML IVPB SCH ×3 (03:28→19:30)
[2016-11-14] MEDS: Morphine 4 MG/ML VIAL IVP PRN ×4 (03:30→20:35)
--- NOTE | 2016-11-14 06:20 | CP.PCM.PN ---
Subjective - Date & Time of Evaluation Date of Evaluation: 11/14/16 Time of Evaluation: 06:18 - Subjective Subjective: Surgery: Dr. Caraballo and Dr. Chan Pt seen and examined. Overnight, pt had worsening abd pain and nausea, no vomiting after having CLD. Pain meds were adjusted providing pt w. some relief. Pt remains on BiPAP and per nursing, quickly desats w. out it. Objective - Vital Signs/Intake and Output Vital Signs (last 24 hours): Temp Pulse Resp BP Pulse Ox 97.3 F L 102 H 22 81/47 L 95 11/14/16 04:00 11/14/16 05:00 11/14/16 05:00 11/14/16 05:00 11/14/16 05:00 Intake and Output: 11/13/16 11/14/16 18:59 06:59 Intake Total 670 1225 Output Total 870 1310 Balance -200 -85 - Medications Medications: Current Medications Acetaminophen (Tylenol 325mg Tab) 650 mg PO Q6 PRN PRN Reason: Fever >100.4 F Albuterol/Ipratropium (Duoneb 3 Mg/0.5 Mg (3 Ml) Ud) 3 ml INH RQ6 [facility] Last Admin: 11/14/16 01:19 Dose: Not Given Alprazolam (Xanax) 2 mg PO HS PRN PRN Reason: Anxiety Last Admin: 11/13/16 21:09 Dose: 2 mg Aripiprazole (Abilify) 5 mg PO DAILY [facility] Last Admin: 11/13/16 09:43 Dose: 5 mg Aspirin (Aspirin Chewable) 81 mg PO DAILY [facility] Last Admin: 11/13/16 09:43 Dose: 81 mg Clopidogrel Bisulfate (Plavix) 75 mg PO DAILY [facility] Last Admin: 11/08/16 10:24 Dose: 75 mg Enoxaparin Sodium (Lovenox) 40 mg SC DAILY [facility] Last Admin: 11/13/16 09:43 Dose: 40 mg Famotidine (Pepcid) 20 mg PO BID [facility] Last Admin: 11/13/16 17:26 Dose: 20 mg Trimethoprim/Sulfamethoxazole (240 mg/ Dextrose) 250 mls @ 200 mls/hr IVPB Q8H [facility] Last Admin: 11/14/16 03:28 Dose: 200 mls/hr Dextrose/Sodium Chloride (Dextrose 5%/0.45% Ns 1000 Ml) 1,000 mls @ 100 mls/hr IV .Q10H [facility] Last Admin: 11/13/16 19:34 Dose: 100 mls/hr Ketorolac Tromethamine (Toradol) 30 mg IVP Q6 PRN PRN Reason: Pain, moderate (4-7) Last Admin: 11/14/16 01:55 Dose: 30 mg Levetiracetam (Keppra) 500 mg PO BID [facility] Last Admin: 11/13/16 17:26 Dose: 500 mg Methylprednisolone (Solu-Medrol) 40 mg IV Q8 [facility] Last Admin: 11/13/16 21:15 Dose: 40 mg Morphine Sulfate (Morphine Sulfate) 4 mg IVP Q4 PRN PRN Reason: Pain, moderate (4-7) Last Admin: 11/14/16 03:30 Dose: 4 mg Ondansetron HCl (Zofran Inj) 4 mg IVP Q4H PRN PRN Reason: Nausea/Vomiting Last Admin: 11/14/16 01:06 Dose: 4 mg Saccharomyces Boulardii (Florastor) 250 mg PO DAILY [facility] Last Admin: 11/13/16 09:43 Dose: 250 mg Sertraline HCl (Zoloft) 100 mg PO DAILY [facility] Last Admin: 11/13/16 09:45 Dose: 100 mg Spironolactone (Aldactone) 25 mg PO BID [facility] Last Admin: 11/13/16 17:26 Dose: 25 mg - Labs Labs: 11/13/16 06:14 11/13/16 06:15 - Constitutional Appears: Non-toxic, No Acute Distress - Head Exam Head Exam: ATRAUMATIC, NORMOCEPHALIC - Eye Exam Eye Exam: EOMI - Neck Exam Neck Exam: Full ROM - Respiratory Exam Additional comments: on BIPAP - GI/Abdominal Exam GI & Abdominal Exam: Distended (mild), Soft, Tenderness (diffuse), Rebound (mild ). absent: Guarding, Rigid - Extremities Exam Extremities Exam: absent: Calf Tenderness, Pedal Edema - Neurological Exam Neurological Exam: Alert, Awake, Oriented x3 Assessment and Plan - Assessment and Plan (Free Text) Assessment: 51F w. SBO and pulmonary fibrosis -NPO -IVF -Morphine and toradol for pain -D/C dilaudid, pt was having more nausea following dilaudid -zofran q4 -serial abd exams -NGT if symptoms worsen -OR Wednesday for VATs w. wedge resection -d/w attending Devin PGY2
[2016-11-14] MEDS: Dextrose 5%/0.45% NS 1,000 ML IV SCH ×3 (06:45→16:04)
[2016-11-14 07:02] LABS: BASO % 0.1 % (0.0-2.0); LYMPH # 0.9 K/uL (1.0-4.3); LYMPH % 12.2 % (20.0-40.0); MEAN CELL VOLUME 91.4 fL (81.0-99.0); MEAN CORPUSCULAR HEMOGLOBIN 29.2 pg (27.0-31.0); MEAN PLATELET VOLUME 7.6 fL (7.2-11.7); MONO # 0.2 K/uL (0.0-0.8); MONO % 2.6 % (0.0-10.0); RED CELL DISTRIBUTION WIDTH 16.1 % (11.5-14.5); WHITE BLOOD COUNT 7.4 K/uL (4.8-10.8)
[2016-11-14 07:09] LABS: CHLORIDE 98 mmol/L (98-107)
[2016-11-14 07:10] LABS: POTASSIUM 4.3 mmol/L (3.6-5.2); SODIUM 133 mmol/L (132-148)
[2016-11-14 07:12] LABS: AST/SGOT 25 U/L (14-36); BILIRUBIN,TOTAL < 0.1 mg/dL (0.2-1.3); CARBON DIOXIDE 32 mmol/L (22-30); GFR AFRICAN-AMERICAN > 60
[2016-11-14 07:13] LABS: ALB/GLOB RATIO 0.9 (1.0-2.1); ALKALINE PHOSPHATASE 92 U/L (38-126); ALT/SGPT 36 U/L (9-52); BLOOD UREA NITROGEN 11 mg/dL (7-17); CALCIUM 7.6 mg/dl (8.6-10.4); GLUCOSE,RANDOM 85 mg/dL (65-105); MAGNESIUM 1.5 mg/dL (1.6-2.3); PHOSPHOROUS 3.7 mg/dL (2.5-4.5); TOTAL PROTEIN 4.1 g/dL (6.3-8.3)
[2016-11-14] MEDS: Enoxaparin 40 mg Syringe SC SCH (09:43)
[2016-11-14] MEDS: Saccharomyces Boulardi 250 mg Cap PO SCH (09:50)
[2016-11-14] MEDS: levETIRAcetam 100 mg/ml (5ml) Oral Syringe PO SCH ×2 (09:50→17:33)
--- NOTE | 2016-11-14 11:09 | RAD ---
HISTORY: sob COMPARISON: Chest x-ray performed 11/13/26 TECHNIQUE: Chest, one view. FINDINGS: LUNGS: Right IJ approach central venous catheter extends expected location of the SVC. Multiple external wires and leads obscure evaluation of the underlying parenchyma. Diffuse granular pulmonary opacities noted bilaterally, grossly stable. Please note that chest x-ray has limited sensitivity for the detection of pulmonary masses. PLEURA: No significant pleural effusion identified. No definite pneumothorax . CARDIOVASCULAR: Stable. OSSEOUS STRUCTURES: No acute osseous abnormality identified. VISUALIZED UPPER ABDOMEN: Unremarkable. OTHER FINDINGS: None. IMPRESSION: Right IJ approach central venous catheter extends expected location of the SVC. Multiple external wires and leads obscure evaluation of the underlying parenchyma. Diffuse granular pulmonary opacities noted bilaterally, grossly stable.
[2016-11-14] MEDS: Ciprofloxacin 400mg/200ml D5W 200 ML IVPB SCH (14:52)
[2016-11-14] MEDS ORDERED: Sodium Chloride 0.9% 500 ML IV ONE (17:19)
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
--- NOTE | 2016-11-14 21:00 | CP.PCM.PN ---
Subjective - Date & Time of Evaluation Date of Evaluation: 11/14/16 Time of Evaluation: 21:00 - Subjective Subjective: CHIEF COMPLAINTS TODAY : patient in ICU, Afebrile,vs BP 81/51 respiratory distress -desaturates quickly off BiPAP now on bipap as per pulmonary. ROS. HEENT : N. Resp : No cough, +ve wheezing , no pleuritic CP ,or hemoptysis Cardio : No anginal CP, PND, orthopnea, palpitation GI : +VE ABDOMINAL PAIN, NO n/v ,diarrhea or GI bleeding . [employer] : No headache, vertigo, focal deficit / Musculoskel : No joint swelling , Derm : No rash Psych : Normal affect. Ext : No swelling ,calf pain PE. Pt. is awake on rebreather mask V.S As noted in the chart Head ,ear nose,throat and eyes : Normal. Neck : Supple with normal carotids. Lungs: BILATERAL RHONCHI AND EXPIRATORY WHEEZE.. Heart : S1 & S2 normal with S4. No murmur. Abd : soft, GENERALIZED TENDERNESS with HYPOACTIVE bowel sounds. Neuro : Moves all ext. with no localized deficit. Ext : No edema with intact pulses.Non tender calves Derm : No rashes or decubitus ulcer. LABS/RADIOLOGY: reviewed URINE CULTURE SENSITIVITY 11/08/16 +VE Klebsiella pneumoniae s-Cipro, Primaxin, BLOOD CULTURES 11/08 NEGATIVE FOR 48 HOURS Objective - Vital Signs/Intake and Output Vital Signs (last 24 hours): Temp Pulse Resp BP Pulse Ox 97.2 F L 105 H 20 88/51 L 99 11/14/16 16:00 11/14/16 19:35 11/14/16 19:01 11/14/16 19:01 11/14/16 18:11 Intake and Output: 11/14/16 11/15/16 18:59 06:59 Intake Total 1400 200 Output Total 235 25 Balance 1165 175 - Medications Medications: Current Medications Acetaminophen (Tylenol 325mg Tab) 650 mg PO Q6 PRN PRN Reason: Fever >100.4 F Albuterol/Ipratropium (Duoneb 3 Mg/0.5 Mg (3 Ml) Ud) 3 ml INH RQ6 [facility] Last Admin: 11/14/16 19:33 Dose: 3 ml Aripiprazole (Abilify) 5 mg PO DAILY [facility] Last Admin: 11/14/16 09:50 Dose: 5 mg Aspirin (Aspirin Chewable) 81 mg PO DAILY [facility] Last Admin: 11/14/16 09:49 Dose: 81 mg Clopidogrel Bisulfate (Plavix) 75 mg PO DAILY [facility] Last Admin: 11/08/16 10:24 Dose: 75 mg Enoxaparin Sodium (Lovenox) 40 mg SC DAILY [facility] Last Admin: 11/14/16 09:43 Dose: 40 mg Famotidine (Pepcid) 20 mg PO BID [facility] Last Admin: 11/14/16 17:33 Dose: 20 mg Trimethoprim/Sulfamethoxazole (240 mg/ Dextrose) 250 mls @ 200 mls/hr IVPB Q8H [facility] Last Admin: 11/14/16 19:30 Dose: 200 mls/hr Dextrose/Sodium Chloride (Dextrose 5%/0.45% Ns 1000 Ml) 1,000 mls @ 100 mls/hr IV .Q10H [facility] Last Admin: 11/14/16 16:04 Dose: Not Given Ciprofloxacin (Cipro 400mg/200ml Dsw) 200 mls @ 133 mls/hr IVPB Q12H [facility] Last Admin: 11/14/16 14:52 Dose: 133 mls/hr Ketorolac Tromethamine (Toradol) 30 mg IVP Q6 PRN PRN Reason: Pain, moderate (4-7) Last Admin: 11/14/16 16:28 Dose: 30 mg Levetiracetam (Keppra) 500 mg PO BID [facility] Last Admin: 11/14/16 17:33 Dose: 500 mg Methylprednisolone (Solu-Medrol) 40 mg IV Q8 [facility] Last Admin: 11/14/16 13:43 Dose: 40 mg Morphine Sulfate (Morphine Sulfate) 4 mg IVP Q4 PRN PRN Reason: Pain, moderate (4-7) Last Admin: 11/14/16 20:35 Dose: 4 mg Ondansetron HCl (Zofran Inj) 4 mg IVP Q4H PRN PRN Reason: Nausea/Vomiting Last Admin: 11/14/16 01:06 Dose: 4 mg Saccharomyces Boulardii (Florastor) 250 mg PO DAILY [facility] Last Admin: 11/14/16 09:50 Dose: 250 mg Sertraline HCl (Zoloft) 100 mg PO DAILY [facility] Last Admin: 11/14/16 09:49 Dose: 100 mg Spironolactone (Aldactone) 25 mg PO BID [facility] Last Admin: 11/14/16 17:33 Dose: 25 mg - Labs Labs: 11/14/16 06:45 11/14/16 06:43 Assessment and Plan - Assessment and Plan (Free Text) Assessment: IMPRESSION; > RESPIRATORY FAILURE/HYPOXIA BILATERAL PNEUMONIA R/O ATYPICAL PNEUMONIA.(HISTORY OF CHANTELL-PARAPSILOSIS PNEUMONIA SEP 2016 S/FOB ) > EXACERBATION OF COPD. > ABDOMINAL PAIN -PARTIAL SMALL BOWEL OBSTRUCTION. (CT ABD /PELVIS-SEE REPORT ) HX OF EXPLORATORY LAP/LYLE AUG 2016. > UROSEPSIS +VE kLEBSIELLA PNEUMONIAE > CHF./CAD. >HISTORY OF SERONEGATIVE LUPUS ON [place]. >DEPRESSION/ANXIETY. PLAN; ON IV Bactrim 240 mg TMP/SMX iv PIGGYBACK EVERY 8 HOURLY FOR ?PCP/[facility]SA COVERAGE 11/10/16 on iv CIPRO 400 MG EVERY 12 HOURLY 11/13/16 TO COVER FOR kLEBSIELLA PNEUMONIAE/AND ATYPICAL PATHOGENS. INDUCE SPUTUM gRAM STAIN AND CULTURE .pULMONARY TOILET. MONITOR RENAL FUNCTIONS CLOSELY. case discussed with the resident and staff. As noted patient for possible biopsy of the lung. surgery follow-up noted.
[2016-11-15] MEDS: Morphine 4 MG/ML VIAL IVP PRN ×2 (01:05→05:19)
[2016-11-15] MEDS: Albuterol-Ipratrop 3 mg / 0.5 (3 ml) UD INH SCH ×4 (01:28→19:08)
[2016-11-15] MEDS: Ciprofloxacin 400mg/200ml D5W 200 ML IVPB SCH ×2 (02:00→14:30)
[2016-11-15] MEDS: Dextrose 5%/0.45% NS 1,000 ML IV SCH (02:45)
[2016-11-15] MEDS: Sulfamethoxazole/Trimethoprim 240 MG in Dextrose 5% In Water 250 ML IVPB SCH ×3 (03:30→19:25)
[2016-11-15 06:38] LABS: BASO % 0.1 % (0.0-2.0); HEMATOCRIT 28.2 % (34.0-47.0); LYMPH % 9.8 % (20.0-40.0); MEAN CELL VOLUME 91.1 fL (81.0-99.0); MEAN CORPUSCULAR HEMOGLOBIN 29.5 pg (27.0-31.0); MEAN CORPUSCULAR HGB CONC 32.4 g/dL (33.0-37.0); MEAN PLATELET VOLUME 7.6 fL (7.2-11.7); MONO # 0.2 K/uL (0.0-0.8); PLATELET COUNT 249 K/uL (130-400); RED CELL DISTRIBUTION WIDTH 15.9 % (11.5-14.5); WHITE BLOOD COUNT 10.3 K/uL (4.8-10.8)
[2016-11-15 06:44] LABS: CHLORIDE 94 mmol/L (98-107); SODIUM 127 mmol/L (132-148)
[2016-11-15 06:45] LABS: POTASSIUM 4.7 mmol/L (3.6-5.2)
[2016-11-15 06:46] LABS: GFR AFRICAN-AMERICAN > 60
[2016-11-15 06:47] LABS: ALB/GLOB RATIO 0.9 (1.0-2.1); ALKALINE PHOSPHATASE 83 U/L (38-126); AST/SGOT 19 U/L (14-36); BILIRUBIN,TOTAL 0.1 mg/dL (0.2-1.3); BLOOD UREA NITROGEN 17 mg/dL (7-17); CARBON DIOXIDE 27 mmol/L (22-30); GLUCOSE,RANDOM 90 mg/dL (65-105); PHOSPHOROUS 4.2 mg/dL (2.5-4.5)
[2016-11-15 06:48] LABS: ALT/SGPT 30 U/L (9-52); CALCIUM 7.4 mg/dl (8.6-10.4); MAGNESIUM 1.7 mg/dL (1.6-2.3)
[2016-11-15] MEDS ORDERED: DEXTROSE IV SCH (07:42)
[2016-11-15] MEDS ORDERED: NS IV SCH (07:42)
[2016-11-15 08:38] LABS: NEUTROPHIL 86 % (50-75); TOTAL CELLS COUNTED 100
[2016-11-15 08:39] LABS: LARGE PLATELETS PRESENT
[2016-11-15] MEDS: Dextrose 5%/0.9% NS 1,000 ML IV SCH ×2 (08:50→22:38)
--- NOTE | 2016-11-15 09:42 | CP.PCM.PN ---
Subjective - Date & Time of Evaluation Date of Evaluation: 11/15/16 Time of Evaluation: 08:25 - Subjective Subjective: Patient seen and examined in the intensive care unit. Remains on BiPAP Off BiPAP desaturates and respiratory distress Awake and responsive afebrile Objective - Vital Signs/Intake and Output Vital Signs (last 24 hours): Temp Pulse Resp BP Pulse Ox 96.1 F L 91 H 22 88/51 L 92 L 11/15/16 09:00 11/15/16 09:00 11/15/16 09:00 11/15/16 09:00 11/15/16 09:00 Intake and Output: 11/15/16 11/15/16 06:59 18:59 Intake Total 1550 100 Output Total 325 Balance 1225 100 - Medications Medications: Current Medications Acetaminophen (Tylenol 325mg Tab) 650 mg PO Q6 PRN PRN Reason: Fever >100.4 F Albuterol/Ipratropium (Duoneb 3 Mg/0.5 Mg (3 Ml) Ud) 3 ml INH RQ6 [facility] Last Admin: 11/15/16 07:13 Dose: 3 ml Alprazolam (Xanax) 2 mg PO HS PRN PRN Reason: Anxiety Last Admin: 11/14/16 22:31 Dose: 2 mg Aripiprazole (Abilify) 5 mg PO DAILY [facility] Last Admin: 11/14/16 09:50 Dose: 5 mg Aspirin (Aspirin Chewable) 81 mg PO DAILY [facility] Last Admin: 11/14/16 09:49 Dose: 81 mg Clopidogrel Bisulfate (Plavix) 75 mg PO DAILY [facility] Last Admin: 11/08/16 10:24 Dose: 75 mg Enoxaparin Sodium (Lovenox) 40 mg SC DAILY [facility] Last Admin: 11/14/16 09:43 Dose: 40 mg Famotidine (Pepcid) 20 mg PO BID [facility] Last Admin: 11/14/16 17:33 Dose: 20 mg Trimethoprim/Sulfamethoxazole (240 mg/ Dextrose) 250 mls @ 200 mls/hr IVPB Q8H [facility] Last Admin: 11/15/16 03:30 Dose: 200 mls/hr Ciprofloxacin (Cipro 400mg/200ml Dsw) 200 mls @ 133 mls/hr IVPB Q12H [facility] Last Admin: 11/15/16 02:00 Dose: 133 mls/hr Dextrose/Sodium Chloride (Dextrose 5%/0.9% Ns 1000 Ml) 100 mls @ 100 mls/hr IV .Q1H [facility] Ketorolac Tromethamine (Toradol) 30 mg IVP Q6 PRN PRN Reason: Pain, moderate (4-7) Last Admin: 11/15/16 04:04 Dose: 30 mg Levetiracetam (Keppra) 500 mg PO BID [facility] Last Admin: 11/14/16 17:33 Dose: 500 mg Methylprednisolone (Solu-Medrol) 40 mg IV Q8 [facility] Last Admin: 11/15/16 06:05 Dose: 40 mg Morphine Sulfate (Morphine Sulfate) 4 mg IVP Q4 PRN PRN Reason: Pain, moderate (4-7) Last Admin: 11/15/16 01:05 Dose: 4 mg Ondansetron HCl (Zofran Inj) 4 mg IVP Q4H PRN PRN Reason: Nausea/Vomiting Last Admin: 11/14/16 01:06 Dose: 4 mg Saccharomyces Boulardii (Florastor) 250 mg PO DAILY [facility] Last Admin: 11/14/16 09:50 Dose: 250 mg Sertraline HCl (Zoloft) 100 mg PO DAILY [facility] Last Admin: 11/14/16 09:49 Dose: 100 mg Spironolactone (Aldactone) 25 mg PO BID [facility] Last Admin: 11/14/16 17:33 Dose: 25 mg - Labs Labs: 11/15/16 06:26 11/15/16 06:26 - Head Exam Head Exam: ATRAUMATIC, NORMOCEPHALIC - Eye Exam Eye Exam: Normal appearance - ENT Exam ENT Exam: Mucous Membranes Moist - Neck Exam Neck Exam: Normal Inspection - Respiratory Exam Respiratory Exam: Rales, Rhonchi - Cardiovascular Exam Cardiovascular Exam: REGULAR RHYTHM - GI/Abdominal Exam GI & Abdominal Exam: Soft, Normal Bowel Sounds - Extremities Exam Extremities Exam: Pedal Edema - Neurological Exam Neurological Exam: Alert Assessment and Plan (1) Respiratory insufficiency Assessment & Plan: Bilateral pneumonia versus pneumonitis Continue IV steroids Continue antibiotics per ID For lung biopsy if no improvement Continue BiPAP. Status: Acute (2) Bilateral pneumonia Status: Acute (3) Small bowel obstruction Status: Acute
--- NOTE | 2016-11-15 09:59 | RAD ---
HISTORY: sob COMPARISON: Chest x-ray performed 11/14/16 TECHNIQUE: Chest, one view. FINDINGS: External wires and leads obscure evaluation of the underlying parenchyma. Right IJ approach central venous catheter extends expected location of the cavoatrial junction. LUNGS: Diffuse granular pulmonary opacities bilaterally, grossly stable. Hypoinflation. Please note that chest x-ray has limited sensitivity for the detection of pulmonary masses. PLEURA: No significant pleural effusion identified. No definite pneumothorax . CARDIOVASCULAR: Stable. OSSEOUS STRUCTURES: Degenerative changes. VISUALIZED UPPER ABDOMEN: Unremarkable. OTHER FINDINGS: None. IMPRESSION: Diffuse granular pulmonary opacities re-identified bilaterally without significant interval change appreciated. Right IJ approach central venous catheter extends expected location of the cavoatrial junction.
[2016-11-15] MEDS: Enoxaparin 40 mg Syringe SC SCH (10:50)
[2016-11-15] MEDS: levETIRAcetam 100 mg/ml (5ml) Oral Syringe PO SCH ×2 (10:51→17:32)
[2016-11-15] MEDS: Saccharomyces Boulardi 250 mg Cap PO SCH (10:51)
--- NOTE | 2016-11-15 13:41 | CP.PCM.PN ---
Subjective - Date & Time of Evaluation Date of Evaluation: 11/15/16 Time of Evaluation: 09:00 - Subjective Subjective: Surgery progress note Pt S&E. NAEO. Pt remains on Bipap continuously throughout the day/night, desats quickly when removed. Pt has mild abdominal pain and slight worsening of the distension. Otherwise no complaints. She denies any N/V, F/C. Objective - Vital Signs/Intake and Output Vital Signs (last 24 hours): Temp Pulse Resp BP Pulse Ox 96.1 F L 90 21 85/53 L 95 11/15/16 09:00 11/15/16 13:17 11/15/16 11:00 11/15/16 11:00 11/15/16 11:00 Intake and Output: 11/15/16 11/15/16 06:59 18:59 Intake Total 1550 817 Output Total 325 250 Balance 1225 567 - Medications Medications: Current Medications Acetaminophen (Tylenol 325mg Tab) 650 mg PO Q6 PRN PRN Reason: Fever >100.4 F Albuterol/Ipratropium (Duoneb 3 Mg/0.5 Mg (3 Ml) Ud) 3 ml INH RQ6 [facility] Last Admin: 11/15/16 13:17 Dose: 3 ml Alprazolam (Xanax) 2 mg PO HS PRN PRN Reason: Anxiety Last Admin: 11/14/16 22:31 Dose: 2 mg Aripiprazole (Abilify) 5 mg PO DAILY [facility] Last Admin: 11/15/16 10:51 Dose: 5 mg Aspirin (Aspirin Chewable) 81 mg PO DAILY [facility] Last Admin: 11/15/16 10:51 Dose: 81 mg Clopidogrel Bisulfate (Plavix) 75 mg PO DAILY [facility] Last Admin: 11/08/16 10:24 Dose: 75 mg Enoxaparin Sodium (Lovenox) 40 mg SC DAILY [facility] Last Admin: 11/15/16 10:50 Dose: 40 mg Famotidine (Pepcid) 20 mg PO BID [facility] Last Admin: 11/15/16 10:51 Dose: 20 mg Trimethoprim/Sulfamethoxazole (240 mg/ Dextrose) 250 mls @ 200 mls/hr IVPB Q8H [facility] Last Admin: 11/15/16 12:05 Dose: 200 mls/hr Ciprofloxacin (Cipro 400mg/200ml Dsw) 200 mls @ 133 mls/hr IVPB Q12H [facility] Last Admin: 11/15/16 02:00 Dose: 133 mls/hr Dextrose/Sodium Chloride (Dextrose 5%/0.9% Ns 1000 Ml) 1,000 mls @ 100 mls/hr IV .Q10H [facility] Last Admin: 11/15/16 08:50 Dose: 100 mls/hr Ketorolac Tromethamine (Toradol) 30 mg IVP Q6 PRN PRN Reason: Pain, moderate (4-7) Last Admin: 11/15/16 12:48 Dose: 30 mg Levetiracetam (Keppra) 500 mg PO BID [facility] Last Admin: 11/15/16 10:51 Dose: 500 mg Methylprednisolone (Solu-Medrol) 40 mg IV Q8 [facility] Last Admin: 11/15/16 06:05 Dose: 40 mg Morphine Sulfate (Morphine Sulfate) 4 mg IVP Q4 PRN PRN Reason: Pain, moderate (4-7) Last Admin: 11/15/16 01:05 Dose: 4 mg Ondansetron HCl (Zofran Inj) 4 mg IVP Q4H PRN PRN Reason: Nausea/Vomiting Last Admin: 11/14/16 01:06 Dose: 4 mg Saccharomyces Boulardii (Florastor) 250 mg PO DAILY [facility] Last Admin: 11/15/16 10:51 Dose: 250 mg Sertraline HCl (Zoloft) 100 mg PO DAILY [facility] Last Admin: 11/15/16 10:51 Dose: 100 mg Spironolactone (Aldactone) 25 mg PO BID [facility] Last Admin: 11/15/16 10:00 Dose: Not Given - Labs Labs: 11/15/16 06:26 11/15/16 06:26 - Constitutional Appears: No Acute Distress - Head Exam Head Exam: ATRAUMATIC, NORMOCEPHALIC - Respiratory Exam Respiratory Exam: absent: Respiratory Distress Additional comments: on bipap - Cardiovascular Exam Cardiovascular Exam: REGULAR RHYTHM - GI/Abdominal Exam GI & Abdominal Exam: Distended, Soft, Tenderness (mild ttp diffusely). absent: Firm - Neurological Exam Neurological Exam: Alert, Oriented x3 - Psychiatric Exam Psychiatric exam: Normal Affect, Normal Mood - Skin Skin Exam: Dry, Intact Assessment and Plan - Assessment and Plan (Free Text) Assessment: 51F w/ SBO and pulmonary fibrosis -Maintin NPO, may have sips/chips -Continue IVF, pain control -OR Wednesday for VATs w. wedge resection DW Dr Chan
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
[2016-11-15] MEDS: Oxycodone/Acetaminophen 5/325 mg Tab PO PRN (17:32)
[2016-11-16] MEDS: Dextrose 5%/0.9% NS 1,000 ML IV SCH ×4 (00:31→17:45)
[2016-11-16] MEDS: Ciprofloxacin 400mg/200ml D5W 200 ML IVPB SCH ×2 (01:20→13:07)
[2016-11-16] MEDS: Albuterol-Ipratrop 3 mg / 0.5 (3 ml) UD INH SCH ×4 (01:32→19:27)
[2016-11-16] MEDS: Sulfamethoxazole/Trimethoprim 240 MG in Dextrose 5% In Water 250 ML IVPB SCH ×3 (03:05→18:58)
[2016-11-16 06:35] LABS: HEMATOCRIT 30.6 % (34.0-47.0); LYMPH # 0.5 K/uL (1.0-4.3); LYMPH % 5.3 % (20.0-40.0); MEAN CELL VOLUME 90.1 fL (81.0-99.0); MEAN CORPUSCULAR HEMOGLOBIN 29.9 pg (27.0-31.0); MEAN CORPUSCULAR HGB CONC 33.2 g/dL (33.0-37.0); MEAN PLATELET VOLUME 7.5 fL (7.2-11.7); MONO # 0.1 K/uL (0.0-0.8); MONO % 1.2 % (0.0-10.0); PLATELET COUNT 206 K/uL (130-400); RED CELL DISTRIBUTION WIDTH 16.3 % (11.5-14.5); WHITE BLOOD COUNT 9.8 K/uL (4.8-10.8)
[2016-11-16 06:40] LABS: CHLORIDE 97 mmol/L (98-107); POTASSIUM 5.5 mmol/L (3.6-5.2); SODIUM 130 mmol/L (132-148)
[2016-11-16 06:42] LABS: INR 1.1
[2016-11-16 06:42] LABS: ALB/GLOB RATIO 0.8 (1.0-2.1); AST/SGOT 18 U/L (14-36); BILIRUBIN,TOTAL 0.4 mg/dL (0.2-1.3); CARBON DIOXIDE 25 mmol/L (22-30); GFR AFRICAN-AMERICAN > 60; TOTAL PROTEIN 4.4 g/dL (6.3-8.3)
[2016-11-16 06:43] LABS: ALKALINE PHOSPHATASE 85 U/L (38-126); ALT/SGPT 29 U/L (9-52); BLOOD UREA NITROGEN 18 mg/dL (7-17); CALCIUM 7.4 mg/dl (8.6-10.4); GLUCOSE,RANDOM 77 mg/dL (65-105); PHOSPHOROUS 5.3 mg/dL (2.5-4.5)
[2016-11-16 06:44] LABS: MAGNESIUM 1.7 mg/dL (1.6-2.3)
--- NOTE | 2016-11-16 08:06 | CP.PCM.PN ---
Subjective - Date & Time of Evaluation Date of Evaluation: 11/16/16 Time of Evaluation: 08:03 - Subjective Subjective: Surgery Note Pt seen and examined. Pt remains on BiPAP continuously. Patient states she had mild nausea overnight. She denies all other complaints. Objective - Vital Signs/Intake and Output Vital Signs (last 24 hours): Temp Pulse Resp BP Pulse Ox 98 F 84 19 105/69 96 11/16/16 04:00 11/16/16 05:44 11/16/16 07:00 11/16/16 07:00 11/16/16 07:00 Intake and Output: 11/16/16 11/16/16 06:59 18:59 Intake Total 1450 100 Output Total 850 90 Balance 600 10 - Medications Medications: Current Medications Acetaminophen (Tylenol 325mg Tab) 650 mg PO Q6 PRN PRN Reason: Fever >100.4 F Albuterol/Ipratropium (Duoneb 3 Mg/0.5 Mg (3 Ml) Ud) 3 ml INH RQ6 [facility] Last Admin: 11/16/16 07:31 Dose: 3 ml Alprazolam (Xanax) 2 mg PO HS PRN PRN Reason: Anxiety Last Admin: 11/15/16 22:41 Dose: 2 mg Aripiprazole (Abilify) 5 mg PO DAILY [facility] Last Admin: 11/15/16 10:51 Dose: 5 mg Aspirin (Aspirin Chewable) 81 mg PO DAILY [facility] Last Admin: 11/15/16 10:51 Dose: 81 mg Clopidogrel Bisulfate (Plavix) 75 mg PO DAILY [facility] Last Admin: 11/08/16 10:24 Dose: 75 mg Enoxaparin Sodium (Lovenox) 40 mg SC DAILY [facility] Last Admin: 11/15/16 10:50 Dose: 40 mg Famotidine (Pepcid) 20 mg PO BID [facility] Last Admin: 11/15/16 17:32 Dose: 20 mg Trimethoprim/Sulfamethoxazole (240 mg/ Dextrose) 250 mls @ 200 mls/hr IVPB Q8H [facility] Last Admin: 11/16/16 03:05 Dose: 200 mls/hr Ciprofloxacin (Cipro 400mg/200ml Dsw) 200 mls @ 133 mls/hr IVPB Q12H [facility] Last Admin: 11/16/16 01:20 Dose: 133 mls/hr Dextrose/Sodium Chloride (Dextrose 5%/0.9% Ns 1000 Ml) 1,000 mls @ 100 mls/hr IV .Q10H [facility] Last Admin: 11/16/16 00:31 Dose: 100 mls/hr Levetiracetam (Keppra) 500 mg PO BID [facility] Last Admin: 11/15/16 17:32 Dose: 500 mg Methylprednisolone (Solu-Medrol) 40 mg IV Q8 [facility] Last Admin: 11/16/16 05:30 Dose: 40 mg Morphine Sulfate (Morphine Sulfate) 4 mg IVP Q4 PRN PRN Reason: Pain, moderate (4-7) Last Admin: 11/15/16 01:05 Dose: 4 mg Ondansetron HCl (Zofran Inj) 4 mg IVP Q4H PRN PRN Reason: Nausea/Vomiting Last Admin: 11/14/16 01:06 Dose: 4 mg Oxycodone/Acetaminophen (Percocet 5/325 Mg Tab) 1 tab PO Q4H PRN PRN Reason: Pain, moderate (4-7) Stop: 11/18/16 17:19 Last Admin: 11/15/16 17:32 Dose: 1 tab Saccharomyces Boulardii (Florastor) 250 mg PO DAILY [facility] Last Admin: 11/15/16 10:51 Dose: 250 mg Sertraline HCl (Zoloft) 100 mg PO DAILY [facility] Last Admin: 11/15/16 10:51 Dose: 100 mg Spironolactone (Aldactone) 25 mg PO QD7 [facility] - Labs Labs: 11/16/16 06:24 11/16/16 06:23 PT 12.3 SECONDS (9.7-12.2) H 11/16/16 06:24 INR 1.1 11/16/16 06:24 APTT 32 SECONDS (21-34) 11/16/16 06:24 - Constitutional Appears: No Acute Distress - Head Exam Head Exam: ATRAUMATIC, NORMOCEPHALIC - Respiratory Exam Respiratory Exam: absent: Respiratory Distress Additional comments: on BiPAP - GI/Abdominal Exam GI & Abdominal Exam: Distended, Soft, Tenderness Additional comments: mild ttp diffusely to abdomen - Neurological Exam Neurological Exam: Alert, Awake, Oriented x3 - Psychiatric Exam Psychiatric exam: Normal Affect, Normal Mood - Skin Skin Exam: Dry, Intact Assessment and Plan - Assessment and Plan (Free Text) Plan: Pt is a 51 y/o female with SBO and pulmonary fibrosis -NPO, sips/chips -Continue IVF, pain control -OR Wednesday for R VATs with wedge resection and Bronchoscopy Will d/w Dr. Chan
[2016-11-16 08:26] LABS: TOTAL CELLS COUNTED 100
[2016-11-16 08:27] LABS: NEUTROPHIL 92 % (50-75)
--- NOTE | 2016-11-16 08:53 | RAD ---
HISTORY: sob COMPARISON: 11/15/2016 FINDINGS: LUNGS: Lines and tubes stable position. Persistent diffuse increased reticulonodular opacities throughout both lungs. PLEURA: As above. CARDIOVASCULAR: Normal. OSSEOUS STRUCTURES: No significant abnormalities. VISUALIZED UPPER ABDOMEN: Normal. OTHER FINDINGS: None. IMPRESSION: No significant interval change.
[2016-11-16] MEDS ORDERED: Sod Polystyrene Sulf 15 gm/60 ml Oral Susp PO ONE (09:01)
[2016-11-16] MEDS: Enoxaparin 40 mg Syringe SC SCH (09:50)
[2016-11-16] MEDS: levETIRAcetam 100 mg/ml (5ml) Oral Syringe PO SCH ×2 (09:50→17:47)
[2016-11-16] MEDS: Saccharomyces Boulardi 250 mg Cap PO SCH (09:50)
[2016-11-16] MEDS: Oxycodone/Acetaminophen 5/325 mg Tab PO PRN (10:02)
--- NOTE | 2016-11-16 10:05 | CP.PCM.PN ---
Subjective - Date & Time of Evaluation Date of Evaluation: 11/16/16 Time of Evaluation: 07:30 - Subjective Subjective: patient seen and examined in the intensive care unit. Remains on BiPAP with no change in patient condition Desaturates without BiPAP Awake and responsive Afebrile Objective - Vital Signs/Intake and Output Vital Signs (last 24 hours): Temp Pulse Resp BP Pulse Ox 96.7 F L 84 22 114/60 96 11/16/16 08:00 11/16/16 05:44 11/16/16 09:00 11/16/16 09:00 11/16/16 09:00 Intake and Output: 11/16/16 11/16/16 06:59 18:59 Intake Total 1450 300 Output Total 850 310 Balance 600 -10 - Medications Medications: Current Medications Acetaminophen (Tylenol 325mg Tab) 650 mg PO Q6 PRN PRN Reason: Fever >100.4 F Albuterol/Ipratropium (Duoneb 3 Mg/0.5 Mg (3 Ml) Ud) 3 ml INH RQ6 [facility] Last Admin: 11/16/16 07:31 Dose: 3 ml Alprazolam (Xanax) 2 mg PO HS PRN PRN Reason: Anxiety Last Admin: 11/15/16 22:41 Dose: 2 mg Aripiprazole (Abilify) 5 mg PO DAILY [facility] Last Admin: 11/16/16 09:49 Dose: 5 mg Aspirin (Aspirin Chewable) 81 mg PO DAILY [facility] Last Admin: 11/16/16 09:49 Dose: 81 mg Clopidogrel Bisulfate (Plavix) 75 mg PO DAILY [facility] Last Admin: 11/08/16 10:24 Dose: 75 mg Enoxaparin Sodium (Lovenox) 40 mg SC DAILY [facility] Last Admin: 11/16/16 09:50 Dose: 40 mg Famotidine (Pepcid) 20 mg PO BID [facility] Last Admin: 11/16/16 09:50 Dose: 20 mg Trimethoprim/Sulfamethoxazole (240 mg/ Dextrose) 250 mls @ 200 mls/hr IVPB Q8H [facility] Last Admin: 11/16/16 03:05 Dose: 200 mls/hr Ciprofloxacin (Cipro 400mg/200ml Dsw) 200 mls @ 133 mls/hr IVPB Q12H [facility] Last Admin: 11/16/16 01:20 Dose: 133 mls/hr Dextrose/Sodium Chloride (Dextrose 5%/0.9% Ns 1000 Ml) 1,000 mls @ 100 mls/hr IV .Q10H [facility] Last Admin: 11/16/16 07:45 Dose: Not Given Levetiracetam (Keppra) 500 mg PO BID [facility] Last Admin: 11/16/16 09:50 Dose: 500 mg Methylprednisolone (Solu-Medrol) 40 mg IV Q8 [facility] Last Admin: 11/16/16 05:30 Dose: 40 mg Morphine Sulfate (Morphine Sulfate) 4 mg IVP Q4 PRN PRN Reason: Pain, moderate (4-7) Last Admin: 11/15/16 01:05 Dose: 4 mg Ondansetron HCl (Zofran Inj) 4 mg IVP Q4H PRN PRN Reason: Nausea/Vomiting Last Admin: 11/14/16 01:06 Dose: 4 mg Oxycodone/Acetaminophen (Percocet 5/325 Mg Tab) 1 tab PO Q4H PRN PRN Reason: Pain, moderate (4-7) Stop: 11/18/16 17:19 Last Admin: 11/15/16 17:32 Dose: 1 tab Saccharomyces Boulardii (Florastor) 250 mg PO DAILY [facility] Last Admin: 11/16/16 09:50 Dose: 250 mg Sertraline HCl (Zoloft) 100 mg PO DAILY [facility] Last Admin: 11/16/16 09:52 Dose: 100 mg Spironolactone (Aldactone) 25 mg PO QD7 [facility] - Labs Labs: 11/16/16 06:24 11/16/16 06:23 PT 12.3 SECONDS (9.7-12.2) H 11/16/16 06:24 INR 1.1 11/16/16 06:24 APTT 32 SECONDS (21-34) 11/16/16 06:24 - Head Exam Head Exam: ATRAUMATIC, NORMOCEPHALIC - Eye Exam Eye Exam: Normal appearance - ENT Exam ENT Exam: Mucous Membranes Moist - Neck Exam Neck Exam: Normal Inspection - Respiratory Exam Respiratory Exam: Rales - Cardiovascular Exam Cardiovascular Exam: REGULAR RHYTHM - GI/Abdominal Exam GI & Abdominal Exam: Soft, Normal Bowel Sounds - Extremities Exam Extremities Exam: Normal Inspection - Neurological Exam Neurological Exam: Awake Assessment and Plan (1) Respiratory insufficiency Assessment & Plan: secondary to pneumonitis 4 lung biopsy tomorrow/bronchoscopy continue antibiotics per ID Continue IV steroids for now BiPAP Status: Acute (2) Bilateral pneumonia Status: Acute (3) Small bowel obstruction Status: Acute
--- NOTE | 2016-11-16 13:34 | CP.PCM.PN ---
Subjective - Date & Time of Evaluation Date of Evaluation: 11/16/16 Time of Evaluation: 13:34 - Subjective Subjective: CHIEF COMPLAINTS TODAY : patient in ICU, Afebrile,vs BP 116/71 -desaturates quickly off BiPAP now on bipap as per pulmonary. pulmonary follow-up noted. ROS. HEENT : N. Resp : No cough, +ve wheezing , no pleuritic CP ,or hemoptysis Cardio : No anginal CP, PND, orthopnea, palpitation GI : +VE ABDOMINAL PAIN, NO n/v ,diarrhea or GI bleeding . [employer]TE[employer]ICIAN : No headache, vertigo, focal deficit / Musculoskel : No joint swelling , Derm : No rash Psych : Normal affect. Ext : No swelling ,calf pain PE. Pt. is awake on rebreather mask V.S As noted in the chart Head ,ear nose,throat and eyes : Normal. Neck : Supple with normal carotids. Lungs: BILATERAL RHONCHI AND EXPIRATORY WHEEZE.. Heart : S1 & S2 normal with S4. No murmur. Abd : soft, GENERALIZED TENDERNESS with HYPOACTIVE bowel sounds. Neuro : Moves all ext. with no localized deficit. Ext : No edema with intact pulses.Non tender calves Derm : No rashes or decubitus ulcer. LABS/RADIOLOGY: reviewed URINE CULTURE SENSITIVITY 11/08/16 +VE Klebsiella pneumoniae s-Cipro, Primaxin , BLOOD CULTURES 11/08 NEGATIVE FOR 48 HOURS Objective - Vital Signs/Intake and Output Vital Signs (last 24 hours): Temp Pulse Resp BP Pulse Ox 97.1 F L 94 H 27 H 116/75 96 11/16/16 12:00 11/16/16 13:00 11/16/16 13:00 11/16/16 13:00 11/16/16 13:00 Intake and Output: 11/16/16 11/16/16 06:59 18:59 Intake Total 1450 1360 Output Total 850 670 Balance 600 690 - Medications Medications: Current Medications Acetaminophen (Tylenol 325mg Tab) 650 mg PO Q6 PRN PRN Reason: Fever >100.4 F Albuterol/Ipratropium (Duoneb 3 Mg/0.5 Mg (3 Ml) Ud) 3 ml INH RQ6 [facility] Last Admin: 11/16/16 07:31 Dose: 3 ml Alprazolam (Xanax) 2 mg PO HS PRN PRN Reason: Anxiety Last Admin: 11/15/16 22:41 Dose: 2 mg Aripiprazole (Abilify) 5 mg PO DAILY [facility] Last Admin: 11/16/16 09:49 Dose: 5 mg Aspirin (Aspirin Chewable) 81 mg PO DAILY [facility] Last Admin: 11/16/16 09:49 Dose: 81 mg Clopidogrel Bisulfate (Plavix) 75 mg PO DAILY [facility] Last Admin: 11/08/16 10:24 Dose: 75 mg Docusate Sodium (Colace) 100 mg PO DAILY [facility] Last Admin: 11/16/16 10:49 Dose: 100 mg Enoxaparin Sodium (Lovenox) 40 mg SC DAILY [facility] Last Admin: 11/16/16 09:50 Dose: 40 mg Famotidine (Pepcid) 20 mg PO BID [facility] Last Admin: 11/16/16 09:50 Dose: 20 mg Trimethoprim/Sulfamethoxazole (240 mg/ Dextrose) 250 mls @ 200 mls/hr IVPB Q8H [facility] Last Admin: 11/16/16 10:28 Dose: 200 mls/hr Ciprofloxacin (Cipro 400mg/200ml Dsw) 200 mls @ 133 mls/hr IVPB Q12H [facility] Last Admin: 11/16/16 13:07 Dose: 133 mls/hr Dextrose/Sodium Chloride (Dextrose 5%/0.9% Ns 1000 Ml) 1,000 mls @ 100 mls/hr IV .Q10H [facility] Last Admin: 11/16/16 07:45 Dose: Not Given Levetiracetam (Keppra) 500 mg PO BID [facility] Last Admin: 11/16/16 09:50 Dose: 500 mg Methylprednisolone (Solu-Medrol) 40 mg IV Q8 [facility] Last Admin: 11/16/16 13:07 Dose: 40 mg Morphine Sulfate (Morphine Sulfate) 4 mg IVP Q4 PRN PRN Reason: Pain, moderate (4-7) Last Admin: 11/15/16 01:05 Dose: 4 mg Ondansetron HCl (Zofran Inj) 4 mg IVP Q4H PRN PRN Reason: Nausea/Vomiting Last Admin: 11/14/16 01:06 Dose: 4 mg Oxycodone/Acetaminophen (Percocet 5/325 Mg Tab) 1 tab PO Q4H PRN PRN Reason: Pain, moderate (4-7) Stop: 02/01/17 17:19 Last Admin: 11/16/16 10:02 Dose: 1 tab Saccharomyces Boulardii (Florastor) 250 mg PO DAILY [facility] Last Admin: 11/16/16 09:50 Dose: 250 mg Sertraline HCl (Zoloft) 100 mg PO DAILY [facility] Last Admin: 11/16/16 09:52 Dose: 100 mg Spironolactone (Aldactone) 25 mg PO QD7 [facility] - Labs Labs: 11/16/16 06:24 11/16/16 06:23 PT 12.3 SECONDS (9.7-12.2) H 11/16/16 06:24 INR 1.1 11/16/16 06:24 APTT 32 SECONDS (21-34) 11/16/16 06:24 Assessment and Plan - Assessment and Plan (Free Text) Assessment: IMPRESSION; > RESPIRATORY FAILURE/HYPOXIA BILATERAL PNEUMONIA R/O ATYPICAL PNEUMONIA.(HISTORY OF CHANTELL-PARAPSILOSIS PNEUMONIA SEP 2016 S/FOB ) > EXACERBATION OF COPD. > ABDOMINAL PAIN -PARTIAL SMALL BOWEL OBSTRUCTION. (CT ABD /PELVIS-SEE REPORT ) HX OF EXPLORATORY LAP/LYLE AUG 2016. > UROSEPSIS +VE kLEBSIELLA PNEUMONIAE > CHF./CAD. >HISTORY OF SERONEGATIVE LUPUS ON [place]. >DEPRESSION/ANXIETY. PLAN; ON IV Bactrim 240 mg TMP/SMX iv PIGGYBACK EVERY 8 HOURLY FOR ?PCP/[facility] COVERAGE 11/10/16 on iv CIPRO 400 MG EVERY 12 HOURLY 11/13/16 TO COVER FOR kLEBSIELLA PNEUMONIAE/AND ATYPICAL PATHOGENS. INDUCE SPUTUM gRAM STAIN AND CULTURE .pULMONARY TOILET. MONITOR RENAL FUNCTIONS CLOSELY. case discussed with the resident and staff. As noted patient for VATS / WEDGE biopsy of the lung. PLEASE SEND APPROPRIATE TISSUE CULTURES-BACTERIAL, FUNGAL, AFB,PCP , CMV/HERPES VIRAL INCLUSION BODIES pLEASE SEND TISSUE BIOPSY IN NON - FORMALIN CONTAINER FOR AFB SMEARS/CULTURES/ PCR. PLEASE CALL MICRO-TO GET APPROPRIATE CONTAINERS FOR AFB/VIRAL CULTURES.
--- NOTE | 2016-11-16 13:46 | CP.CCUPN ---
<RobisonMariana - Last Filed: 11/16/16 14:13> CCU Subjective - Physician Review Events Since Last Encounter (Free Text): 11/16/16 14:04 No changes, still Bipap Subjective (Free Text): 11/10/16 12:04 Pt S & E this AM. Reports ab pain and SOB improved- on VTM. Had soft unformed BMs x 2 yesterday, 1 liquid stool today with large volume flatus. Denies N/V/F/C, chest pain. 11/11/16 12:38 Pt S & E this AM. Pt reports having 3 liquid stools yesterday, continues to require VTM 2/2 SOB, insomnia. Abdominal pain much improved, abdominal distention much improved. Denies N/V/F/C, chest pain. 11/12/16 14:26 Pt S & E this AM. Pt reports continued SOB, likes being on Bipap 2/2 less work to breathe. Ab pain improved, continues with liquid stools, now has non productive cough. 11/13/16 16:55 Pt S & E this AM. Pt continues w/SOB requiring Bipap overnight, using more Bipap vs. VTM mask, states she had insomnia overnight 2/2 SOB, needing to focus on breathing. Abdominal pain resolved. Had slight nausea yesterday with protein supplement. Had 1 liquid BM yesterday. Denies emesis, fevers, chills, chest pain. 11/16/16 13:44 P S & E this AM. Pt on BiPAP -tolerating it well. Pt admits to epigastric abdominal pain, hunger -asking for food. For OR tomorrow for bronchoscopy and wedge biopsy with Dr. Chan. Critical Care Time Spent (in minutes): 45 CCU Objective - Vital Signs / Intake & Output Vital Signs (Last 4 hours): Vital Signs Temp Pulse Resp BP Pulse Ox 11/16/16 13:00 94 H 27 H 116/75 96 11/16/16 12:00 97.1 F L 98 H 27 H 130/76 93 L 11/16/16 11:00 96 H 24 115/58 L 95 11/16/16 10:00 95 H 27 H 107/65 97 Intake and Output (Last 8hrs): Intake & Output 11/15/16 11/16/16 11/16/16 22:59 06:59 14:59 Intake Total 967 1050 1360 Output Total 435 615 670 Balance 532 435 690 Weight 68 kg Intake: Intake, IV Amount 817 1050 900 Right Distal Port 817 1050 900 Internal Jugular Oral 150 460 Output: Urine 435 615 670 Urethral (Mishra) 435 615 670 Other: # Bowel Movements 0 - Physical Exam Head: Positive for: Atraumatic, Normocephalic Pupils: Positive for: PERRL Extroacular Muscles: Positive for: EOMI Conjunctiva: Positive for: Normal Ears: Positive for: Normal Mouth: Positive for: Moist Mucous Membranes Pharnyx: Positive for: Normal Nose (External): Positive for: Atraumatic Neck: Positive for: Normal Range of Motion, Trachea Midline, Other (Right IJ (- ) erythema/drainage) Respiratory/Chest: Positive for: Decreased Breath Sounds, Tachypneic, Other (on BiPAP). Negative for: Clear to Auscultation (coarse BS b/l), Good Air Exchange (decreased), Respiratory Distress, Accessory Muscle Use, Rales, Rhonchi Cardiovascular: Positive for: Regular Rate and Rhythm, Normal S1, S2, Peripheal Pulses Present. Negative for: Murmurs, Tachycardic, Rub, Gallop Abdomen: Positive for: Normal Bowel Sounds. Negative for: Tenderness, Distention, Peritoneal Signs, Rebound, Guarding Upper Extremity: Positive for: Normal Inspection. Negative for: Cyanosis, Edema Lower Extremity: Positive for: Normal Inspection, Edema (B/L, minimal) Neurological: Positive for: GCS=15, CN II-XII Intact, Speech Normal Skin: Positive for: Warm, Dry, Normal Color. Negative for: Rashes Psychiatric: Positive for: Alert, Oriented x 3, Normal Insight, Normal Concentration - Medications Active Medications: Active Medications Generic Name Dose Route Start Last Admin Trade Name Freq PRN Reason Stop Dose Admin Acetaminophen 650 mg 11/08/16 20:26 Tylenol 325mg Tab PO Q6 PRN Fever >100.4 F Albuterol/Ipratropium 3 ml 11/09/16 02:00 11/16/16 13:38 Duoneb 3 Mg/0.5 Mg (3 Ml) Ud INH Not Given RQ6 BALBINA Alprazolam 2 mg 11/14/16 22:30 11/15/16 22:41 Xanax PO 2 mg HS PRN Administration Anxiety Aripiprazole 5 mg 11/07/16 10:00 11/16/16 09:49 Abilify PO 5 mg DAILY BALBINA Administration Aspirin 81 mg 11/07/16 10:00 11/16/16 09:49 Aspirin Chewable PO 81 mg DAILY BALBINA Administration Clopidogrel Bisulfate 75 mg 11/07/16 10:00 11/08/16 10:24 Plavix PO 75 mg DAILY BALBINA Administration Docusate Sodium 100 mg 11/16/16 10:45 11/16/16 10:49 Colace PO 100 mg DAILY BALBINA Administration Enoxaparin Sodium 40 mg 11/07/16 10:00 11/16/16 09:50 Lovenox SC 40 mg DAILY BALBINA Administration Famotidine 20 mg 11/07/16 10:00 11/16/16 09:50 Pepcid PO 20 mg BID BALBINA Administration Trimethoprim/Sulfamethoxazole 250 mls @ 200 mls/hr 11/11/16 03:30 11/16/16 10: 28 240 mg/ Dextrose IVPB 200 mls/hr Q8H BALBINA Administration Ciprofloxacin 200 mls @ 133 mls/hr 11/14/16 14:00 11/16/16 13:07 Cipro 400mg/200ml Dsw IVPB 133 mls/hr Q12H BALBINA Administration Dextrose/Sodium Chloride 1,000 mls @ 100 mls/hr 11/15/16 11:45 11/16/16 07:45 Dextrose 5%/0.9% Ns 1000 Ml IV Not Given .Q10H BALBINA Levetiracetam 500 mg 11/09/16 18:00 11/16/16 09:50 Keppra PO 500 mg BID BALBINA Administration Methylprednisolone 40 mg 11/09/16 14:00 11/16/16 13:07 Solu-Medrol IV 40 mg Q8 BALBINA Administration Morphine Sulfate 4 mg 11/13/16 22:23 11/15/16 01:05 Morphine Sulfate IVP 4 mg Q4 PRN Administration Pain, moderate (4-7) Ondansetron HCl 4 mg 11/13/16 19:14 11/14/16 01:06 Zofran Inj IVP 4 mg Q4H PRN Administration Nausea/Vomiting Oxycodone/Acetaminophen 1 tab 11/15/16 17:18 11/16/16 10:02 Percocet 5/325 Mg Tab PO 11/18/16 17:19 1 tab Q4H PRN Administration Pain, moderate (4-7) Saccharomyces Boulardii 250 mg 11/11/16 12:30 11/16/16 09:50 Florastor PO 250 mg DAILY BALBINA Administration Sertraline HCl 100 mg 11/07/16 10:00 11/16/16 09:52 Zoloft PO 100 mg DAILY BALBINA Administration Spironolactone 25 mg 11/15/16 17:15 Aldactone PO QD7 BALBINA - Patient Studies Lab Studies: Lab Studies 11/16/16 11/16/16 11/16/16 Range/Units 06:30 06:24 06:23 WBC 9.8 (4.8-10.8) K/uL RBC 3.40 L (3.80-5.20) Mil/uL Hgb 10.2 L (11.0-16.0) g/dL Hct 30.6 L (34.0-47.0) % MCV 90.1 (81.0-99.0) fL MCH 29.9 (27.0-31.0) pg MCHC 33.2 (33.0-37.0) g/dL RDW 16.3 H (11.5-14.5) % Plt Count 206 (130-400) K/uL MPV 7.5 (7.2-11.7) fL Neut % (Auto) 93.5 H (50.0-75.0) % Lymph % (Auto) 5.3 L (20.0-40.0) % [place] % (Auto) 1.2 (0.0-10.0) % Eos % (Auto) 0.0 (0.0-4.0) % Baso % (Auto) 0.0 (0.0-2.0) % Neut # 9.2 H (1.8-7.0) K/uL Lymph # 0.5 L (1.0-4.3) K/uL [place] # 0.1 (0.0-0.8) K/uL Eos # 0.0 (0.0-0.7) K/uL Baso # 0.0 (0.0-0.2) K/uL Neutrophils % (Manual) 92 H (50-75) % Band Neutrophils % 2 (0-2) % Lymphocytes % (Manual) 5 L (20-40) % Monocytes % (Manual) 1 (0-10) % Platelet Estimate Normal (NORMAL) Hypochromasia (manual) Moderate Poikilocytosis (manual Slight Anisocytosis (manual) Slight Target Cells Moderate Nelson Cells Slight PT 12.3 H (9.7-12.2) SECONDS INR 1.1 APTT 32 (21-34) SECONDS Sodium 130 L (132-148) mmol/L Potassium 5.5 H (3.6-5.2) mmol/L Chloride 97 L (98-107) mmol/L Carbon Dioxide 25 (22-30) mmol/L Anion Gap 14 (10-20) BUN 18 H (7-17) mg/dL Creatinine 0.9 (0.7-1.2) MG/DL Est GFR ( Amer) > 60 Est GFR (Non-Af Amer) > 60 Random Glucose 77 (65-105) mg/dL Calcium 7.4 L (8.6-10.4) mg/dl Phosphorus 5.3 H (2.5-4.5) mg/dL Magnesium 1.7 (1.6-2.3) mg/dL Total Bilirubin 0.4 (0.2-1.3) mg/dL AST 18 (14-36) U/L ALT 29 (9-52) U/L Alkaline Phosphatase 85 (38-126) U/L Total Protein 4.4 L (6.3-8.3) g/dL Albumin 2.0 L (3.5-5.0) g/dL Globulin 2.4 (2.2-3.9) gm/dL Albumin/Globulin Ratio 0.8 L (1.0-2.1) Blood Type AB POSITIVE Antibody Screen Positive Antibody Identification Non Specific Antibody KELLY, Poly Interpret Negative (NEGATIVE) Laboratory Results - last 24 hr 11/16/16 11/16/16 11/16/16 06:23 06:24 06:30 WBC 9.8 RBC 3.40 L Hgb 10.2 L Hct 30.6 L MCV 90.1 MCH 29.9 MCHC 33.2 RDW 16.3 H Plt Count 206 MPV 7.5 Neut % (Auto) 93.5 H Lymph % (Auto) 5.3 L [place] % (Auto) 1.2 Eos % (Auto) 0.0 Baso % (Auto) 0.0 Neut # 9.2 H Lymph # 0.5 L [place] # 0.1 Eos # 0.0 Baso # 0.0 Neutrophils % (Manual) 92 H Band Neutrophils % 2 Lymphocytes % (Manual) 5 L Monocytes % (Manual) 1 Platelet Estimate Normal Hypochromasia (manual) Moderate Poikilocytosis (manual Slight Anisocytosis (manual) Slight Target Cells Moderate Nelson Cells Slight PT 12.3 H INR 1.1 APTT 32 Sodium 130 L Potassium 5.5 H Chloride 97 L Carbon Dioxide 25 Anion Gap 14 BUN 18 H Creatinine 0.9 Est GFR ( Amer) > 60 Est GFR (Non-Af Amer) > 60 Random Glucose 77 Calcium 7.4 L Phosphorus 5.3 H Magnesium 1.7 Total Bilirubin 0.4 AST 18 ALT 29 Alkaline Phosphatase 85 Total Protein 4.4 L Albumin 2.0 L Globulin 2.4 Albumin/Globulin Ratio 0.8 L Blood Type AB POSITIVE Antibody Screen Positive Antibody Identification Non Specific Antibody KELLY, Poly Interpret Negative Review of Systems - Constitutional Constitutional: absent: Fever, Chills - EENT Eyes: UNREMARKABLE Nose/Mouth/Throat: absent: Sore Throat, Neck Pain - Cardiovascular Cardiovascular: Dyspnea. absent: Chest Pain, Chest Pain at Rest - Respiratory Respiratory: Cough, Dyspnea, Dyspnea on Exertion - Gastrointestinal Gastrointestinal: Abdominal Pain, Constipation - Genitourinary Genitourinary: absent: Difficulty Urinating, Dysuria - Musculoskeletal Musculoskeletal: absent: Arthralgias, Myalgias - Integumentary Integumentary: absent: Rash, Skin Pain - Neurological Neurological: absent: Dizziness, Headaches - Psychiatric Psychiatric: Anxiety (under control on medication) Critical Care Progress Note - Ventilator Checklist PUD Prophalyxis: Yes DVT Prophylaxis: Yes - Extremities/Vascular Does the Patient have a Central Venous Catheter?: Yes Insertion Site: Internal Jugular Vein (R) Does the Patient need a Central Venous Catheter?: Yes (Vascular access for OR) Does the Patient have a Mishra Catheter?: No Does the Patient need a Mishra Catheter?: No - Prophylaxis GI Prophylaxis GI: Pepsid - Prophylaxis DVT Prophylaxis DVT: Lovenox - Nutrition Nutrition: Nutrition Category Date Time Status Heart Healthy Diet [DIET] Diets 11/16/16 Lunch Active Assessment/Plan - Assessment and Plan (Free Text) Assessment: 51F respiratory distress w/ likely idiopathic pulmonary fibrosis. Plan: Neuro Awake Alert Stable Cont home meds: Zoloft, Xanax, Abilify, Keppra Seizure precautions Monitor CVS BP labile ASA Plavix held Monitor Pulm Continues to require VTM with Bipap periodically and overnight Duonebs SOlu-medrol CXR - No sig interval change Pulm following- plans for bronch/lung bx tomorrow w/CT surgery Nephro Hyperkalemia- K 5.5 Kayexelate Spironolactone- held Monitor GI Heart healthy diet Supplements Probiotic Zofran Colace started Enema Morphine Hepatobiliary surgery following Gen surg following- SBO mgmt as per surgery Voids on own MOnitor Heme Hgb 10.2 Hct 30.6 Monitor Endo Sugars WNL Monitor MSK Monitor for skin break down ID Urine cx - Klebsiella PNA No leukocytosis Afebrile over last 24H Bactrim Tylenol PRN Blood cx neg x 5D FU Legionella ID following GI/DVT ppx Pepcid Lovenox Dispo: Continue ICU care For OR tomorrow - lung bx/bronchoscopy DW attending - Date & Time Date: 11/16/16 Time: 07:00 <Stefania Martinez - Last Filed: 11/19/16 17:26> CCU Objective - Vital Signs / Intake & Output Vital Signs (Last 4 hours): Vital Signs Temp Pulse Resp BP Pulse Ox 11/19/16 17:09 98 H 21 102/65 96 11/19/16 17:00 107 H 19 96 11/19/16 16:09 95 H 20 95/59 L 94 L 11/19/16 16:00 97.6 F 106 H 24 88 L 11/19/16 15:09 99 H 20 103/62 90 L 11/19/16 15:00 101 H 22 96 11/19/16 14:10 112 H 27 H 101/61 88 L 11/19/16 14:01 106 H 18 93/48 L 93 L 11/19/16 14:00 106 H 22 95 Intake and Output (Last 8hrs): Intake & Output 11/19/16 11/19/16 11/19/16 06:59 14:59 22:59 Intake Total 916 Output Total 360 Balance 556 Intake: Intake, IV Amount 506 Right Medial Port 56 Internal Jugular Right Distal Port 450 Internal Jugular Oral 200 Tube Feeding 210 Output: Urine 360 Urethral (Mishra) 360 - Medications Active Medications: Active Medications Generic Name Dose Route Start Last Admin Trade Name Freq PRN Reason Stop Dose Admin Acetaminophen 650 mg 11/08/16 20:26 Tylenol 325mg Tab PO Q6 PRN Fever >100.4 F Albuterol/Ipratropium 3 ml 11/19/16 02:00 11/19/16 13:31 Duoneb 3 Mg/0.5 Mg (3 Ml) Ud INH 3 ml RQ6 BALBINA Administration Alprazolam 0.5 mg 11/17/16 20:23 11/19/16 05:12 Xanax PO 0.5 mg Q8H PRN Administration Anxiety Alprazolam 2 mg 11/19/16 22:00 Xanax PO HS BALBINA Aspirin 81 mg 11/07/16 10:00 11/16/16 09:49 Aspirin Chewable PO 81 mg DAILY BALBINA Administration Clopidogrel Bisulfate 75 mg 11/07/16 10:00 11/08/16 10:24 Plavix PO 75 mg DAILY BALBINA Administration Enoxaparin Sodium 40 mg 11/07/16 10:00 11/19/16 10:49 Lovenox SC 40 mg DAILY BALBINA Administration Famotidine 20 mg 11/17/16 10:15 11/19/16 10:50 Pepcid IVP 20 mg BID BALBINA Administration Hydromorphone HCl 1 mg 11/19/16 14:38 Dilaudid IVP Q3H PRN Pain, severe (8-10) Ciprofloxacin 200 mls @ 133 mls/hr 11/14/16 14:00 11/19/16 14:23 Cipro 400mg/200ml Dsw IVPB 133 mls/hr Q12H BALBINA Administration Propofol 100 mls @ 2.01 mls/hr 11/17/16 20:19 11/19/16 07:58 Diprivan IV 3.216 mls/hr .Q24H PRN Administration TITRATE PER MD ORDER Protocol 5 MCG/KG/MIN Fentanyl Citrate 2,500 mcg/ 250 mls @ 70 mls/hr 11/19/16 10:35 Sodium Chloride IV .Q3H35M BALBINA Protocol 10 MCG/KG/HR Ketorolac Tromethamine 30 mg 11/19/16 12:00 11/19/16 11:59 Toradol IVP 30 mg Q6 BALBINA Administration Lactulose 20 gm 11/19/16 10:30 11/19/16 10:49 Enulose PO 20 gm Q4H BALBINA Administration Levetiracetam 500 mg 11/09/16 18:00 11/19/16 10:49 Keppra PO 500 mg BID BALBINA Administration Methylprednisolone 40 mg 11/09/16 14:00 11/19/16 14:22 Solu-Medrol IV 40 mg Q8 BALBINA Administration - Patient Studies Lab Studies: Microbiology Studies 11/16/16 Unknown Urine Culture - Final Urine,Clean Catch Yeast Species Lab Studies 11/19/16 11/19/16 Range/Units 06:31 05:14 WBC 9.3 (4.8-10.8) K/uL RBC 2.79 L (3.80-5.20) Mil/uL Hgb 8.4 L (11.0-16.0) g/dL Hct 25.2 L (34.0-47.0) % MCV 90.5 (81.0-99.0) fL MCH 30.3 (27.0-31.0) pg MCHC 33.5 (33.0-37.0) g/dL RDW 16.1 H (11.5-14.5) % Plt Count 305 (130-400) K/uL MPV 7.3 (7.2-11.7) fL Neut % (Auto) 79.7 H (50.0-75.0) % Lymph % (Auto) 14.1 L (20.0-40.0) % [place] % (Auto) 6.0 (0.0-10.0) % Eos % (Auto) 0.1 (0.0-4.0) % Baso % (Auto) 0.1 (0.0-2.0) % Neut # 7.4 H (1.8-7.0) K/uL Lymph # 1.3 (1.0-4.3) K/uL [place] # 0.6 (0.0-0.8) K/uL Eos # 0.0 (0.0-0.7) K/uL Baso # 0.0 (0.0-0.2) K/uL Puncture Site Rr pCO2 51 H (35-45) mm/Hg pO2 62 L (80-100) mm/Hg HCO3 32.1 H (21-28) mmol/L ABG pH 7.44 (7.35-7.45) ABG Total CO2 36.2 H (22-28) mmol/L ABG O2 Saturation 93.9 L (95-98) % ABG Base Excess 9.3 H (-2.0-3.0) mmol/L ABG Hemoglobin 9.3 L (11.7-17.4) g/dL ABG Carboxyhemoglobin 2.1 H (0.5-1.5) % POC ABG HHb (Measured) 5.9 H (0.0-5.0) % ABG Methemoglobin 0.7 (0.0-3.0) % Reese Test Pos A-a O2 Difference 587.0 mm/Hg Respiratory Index 9.5 Hgb O2 Saturation 91.3 L (95.0-98.0) % Mechanical Rate 14 FiO2 100.0 % Tidal Volume 450 PEEP 6 Sodium 136 (132-148) mmol/L Potassium 3.5 L (3.6-5.2) mmol/L Chloride 99 (98-107) mmol/L Carbon Dioxide 32 H (22-30) mmol/L Anion Gap 9 L (10-20) BUN 9 (7-17) mg/dL Creatinine 0.6 L (0.7-1.2) MG/DL Est GFR ( Amer) > 60 Est GFR (Non-Af Amer) > 60 Random Glucose 84 (65-105) mg/dL Calcium 7.4 L (8.6-10.4) mg/dl Phosphorus 3.7 (2.5-4.5) mg/dL Magnesium 1.6 (1.6-2.3) mg/dL Total Bilirubin 0.5 (0.2-1.3) mg/dL AST 16 (14-36) U/L ALT 25 (9-52) U/L Alkaline Phosphatase 117 (38-126) U/L Total Protein 5.0 L (6.3-8.3) g/dL Albumin 2.1 L (3.5-5.0) g/dL Globulin 2.9 (2.2-3.9) gm/dL Albumin/Globulin Ratio 0.7 L (1.0-2.1) Laboratory Results - last 24 hr 02/02/17 02/02/17 05:14 06:31 WBC 9.3 RBC 2.79 L Hgb 8.4 L Hct 25.2 L MCV 90.5 MCH 30.3 MCHC 33.5 RDW 16.1 H Plt Count 305 MPV 7.3 Neut % (Auto) 79.7 H Lymph % (Auto) 14.1 L [place] % (Auto) 6.0 Eos % (Auto) 0.1 Baso % (Auto) 0.1 Neut # 7.4 H Lymph # 1.3 [place] # 0.6 Eos # 0.0 Baso # 0.0 Puncture Site Rr pCO2 51 H pO2 62 L HCO3 32.1 H ABG pH 7.44 ABG Total CO2 36.2 H ABG O2 Saturation 93.9 L ABG Base Excess 9.3 H ABG Hemoglobin 9.3 L ABG Carboxyhemoglobin 2.1 H POC ABG HHb (Measured) 5.9 H ABG Methemoglobin 0.7 Reese Test Pos A-a O2 Difference 587.0 Respiratory Index 9.5 Hgb O2 Saturation 91.3 L Mechanical Rate 14 FiO2 100.0 Tidal Volume 450 PEEP 6 Sodium 136 Potassium 3.5 L Chloride 99 Carbon Dioxide 32 H Anion Gap 9 L BUN 9 Creatinine 0.6 L Est GFR ( Amer) > 60 Est GFR (Non-Af Amer) > 60 Random Glucose 84 Calcium 7.4 L Phosphorus 3.7 Magnesium 1.6 Total Bilirubin 0.5 AST 16 ALT 25 Alkaline Phosphatase 117 Total Protein 5.0 L Albumin 2.1 L Globulin 2.9 Albumin/Globulin Ratio 0.7 L Critical Care Progress Note - Nutrition Nutrition: Nutrition Category Date Time Status NPO Diet [DIET] Diets 11/16/16 Dinner Active
[2016-11-16] MEDS: Morphine 4 MG/ML VIAL IVP PRN ×2 (16:14→20:26)
[2016-11-16 17:11] LABS: RBC URINE 1 /hpf (0-3); URINE BACTERIA RARE (<OCC); URINE BILIRUBIN NEGATIVE (NEGATIVE); URINE BLOOD NEGATIVE (NEGATIVE); URINE COLOR Yellow (YELLOW); URINE GLUCOSE (UA) NORMAL (Normal); URINE KETONE NEGATIVE (NEGATIVE); URINE LEUKOCYTE ESTERASE NEG Leu/uL (Negative); URINE PROTEIN NEGATIVE (NEGATIVE); URINE UROBILINOGEN NORMAL mg/dL (0.2-1.0); WBC URINE 3 /hpf (0-5)
[2016-11-17] MEDS: Morphine 4 MG/ML VIAL IVP PRN ×4 (00:43→21:19)
[2016-11-17] MEDS: Albuterol-Ipratrop 3 mg / 0.5 (3 ml) UD INH SCH ×4 (01:03→20:15)
[2016-11-17] MEDS: Ciprofloxacin 400mg/200ml D5W 200 ML IVPB SCH ×2 (01:07→12:59)
[2016-11-17] MEDS: Sulfamethoxazole/Trimethoprim 240 MG in Dextrose 5% In Water 250 ML IVPB SCH ×3 (04:06→20:58)
[2016-11-17 05:50] LABS: BASO % 0.2 % (0.0-2.0); HEMATOCRIT 26.9 % (34.0-47.0); LYMPH # 0.4 K/uL (1.0-4.3); LYMPH % 4.1 % (20.0-40.0); MEAN CELL VOLUME 90.4 fL (81.0-99.0); MEAN CORPUSCULAR HEMOGLOBIN 29.9 pg (27.0-31.0); MEAN PLATELET VOLUME 7.5 fL (7.2-11.7); MONO # 0.2 K/uL (0.0-0.8); MONO % 1.7 % (0.0-10.0); PLATELET COUNT 252 K/uL (130-400); WHITE BLOOD COUNT 9.8 K/uL (4.8-10.8)
[2016-11-17 06:04] LABS: CHLORIDE 100 mmol/L (98-107); POTASSIUM 4.9 mmol/L (3.6-5.2); SODIUM 135 mmol/L (132-148)
[2016-11-17 06:06] LABS: BILIRUBIN,TOTAL 0.1 mg/dL (0.2-1.3); GFR AFRICAN-AMERICAN > 60
[2016-11-17 06:07] LABS: ALB/GLOB RATIO 0.8 (1.0-2.1); ALKALINE PHOSPHATASE 110 U/L (38-126); ALT/SGPT 32 U/L (9-52); AST/SGOT 13 U/L (14-36); BLOOD UREA NITROGEN 12 mg/dL (7-17); CALCIUM 7.5 mg/dl (8.6-10.4); CARBON DIOXIDE 28 mmol/L (22-30); GLUCOSE,RANDOM 96 mg/dL (65-105); PHOSPHOROUS 4.1 mg/dL (2.5-4.5); TOTAL PROTEIN 4.6 g/dL (6.3-8.3)
[2016-11-17] MEDS: Dextrose 5%/0.9% NS 1,000 ML IV SCH ×3 (06:23→13:45)
[2016-11-17 08:05] LABS: NEUTROPHIL 91 % (50-75); TOTAL CELLS COUNTED 100
--- NOTE | 2016-11-17 08:52 | RAD ---
HISTORY: Shortness of breath COMPARISON: 11/16/2016 FINDINGS: LUNGS: Right central venous catheter tip extending to the cavoatrial junction. Dense diffuse airspace opacities and reticulonodular opacities throughout both lungs, unchanged. PLEURA: No significant pleural effusion identified, no pneumothorax apparent. CARDIOVASCULAR: Normal. OSSEOUS STRUCTURES: No significant abnormalities. VISUALIZED UPPER ABDOMEN: Normal. OTHER FINDINGS: None. IMPRESSION: No significant interval change.
[2016-11-17 08:53] LABS: MAGNESIUM 1.7 mg/dL (1.6-2.3)
[2016-11-17] MEDS: Saccharomyces Boulardi 250 mg Cap PO SCH (10:00)
[2016-11-17] MEDS: levETIRAcetam 100 mg/ml (5ml) Oral Syringe PO SCH ×2 (10:00→17:38)
[2016-11-17 10:24] LABS: ARTERIAL BLOOD HGB O2 SAT 94.4 % (95.0-98.0); CARBOXYHEMOGLOBIN 2.4 % (0.5-1.5); DRAW SITE RB; HHB 2.5 % (0.0-5.0); METHEMOGLOBIN 0.6 % (0.0-3.0)
--- NOTE | 2016-11-17 12:43 | CP.CCUPN ---
<Mariana Robison - Last Filed: 11/17/16 12:55> CCU Subjective - Physician Review Events Since Last Encounter (Free Text): 11/17/16 12:40 Stable overnight on Bipap Subjective (Free Text): 11/10/16 12:04 Pt S & E this AM. Reports ab pain and SOB improved- on VTM. Had soft unformed BMs x 2 yesterday, 1 liquid stool today with large volume flatus. Denies N/V/F/C, chest pain. 11/11/16 12:38 Pt S & E this AM. Pt reports having 3 liquid stools yesterday, continues to require VTM 2/2 SOB, insomnia. Abdominal pain much improved, abdominal distention much improved. Denies N/V/F/C, chest pain. 11/12/16 14:26 Pt S & E this AM. Pt reports continued SOB, likes being on Bipap 2/2 less work to breathe. Ab pain improved, continues with liquid stools, now has non productive cough. 11/13/16 16:55 Pt S & E this AM. Pt continues w/SOB requiring Bipap overnight, using more Bipap vs. VTM mask, states she had insomnia overnight 2/2 SOB, needing to focus on breathing. Abdominal pain resolved. Had slight nausea yesterday with protein supplement. Had 1 liquid BM yesterday. Denies emesis, fevers, chills, chest pain. 11/16/16 13:44 P S & E this AM. Pt on BiPAP -tolerating it well. Pt admits to epigastric abdominal pain, hunger -asking for food. For OR tomorrow for bronchoscopy and wedge biopsy with Dr. Chan. 11/17/16 12:40 Pt S & E this AM. Pt stable on BiPAP confortable overnight. Continued epigastric pain but tolerating diet intermittently. No BM despite SS enema & colace. For bronchoscopy and wedge biopsy today with Dr. Chan. Critical Care Time Spent (in minutes): 60 CCU Objective - Vital Signs / Intake & Output Vital Signs (Last 4 hours): Vital Signs Pulse Resp BP Pulse Ox 11/17/16 11:43 106 H 11/17/16 11:00 96 H 18 105/63 94 L 11/17/16 10:00 98 H 18 107/66 95 11/17/16 09:00 101 H 22 102/71 96 Intake and Output (Last 8hrs): Intake & Output 11/16/16 11/17/16 11/17/16 22:59 06:59 14:59 Intake Total 1000 950 600 Output Total 535 610 475 Balance 465 340 125 Weight 67 kg Intake: Intake, IV Amount 950 950 600 Right Distal Port 950 950 600 Internal Jugular Oral 50 0 Output: Urine 535 610 475 Urethral (Mishra) 535 610 475 Emesis 0 Other: # Bowel Movements 0 0 - Physical Exam Head: Positive for: Atraumatic, Normocephalic Pupils: Positive for: PERRL Extroacular Muscles: Positive for: EOMI Conjunctiva: Positive for: Normal Ears: Positive for: Normal Mouth: Positive for: Moist Mucous Membranes Pharnyx: Positive for: Normal Nose (External): Positive for: Atraumatic Neck: Positive for: Normal Range of Motion, Trachea Midline, Other (Right IJ (- ) erythema/drainage) Respiratory/Chest: Positive for: Decreased Breath Sounds, Other (on BiPAP). Negative for: Clear to Auscultation (coarse BS b/l), Good Air Exchange ( decreased), Respiratory Distress, Accessory Muscle Use, Rales, Rhonchi Cardiovascular: Positive for: Normal S1, S2, Peripheal Pulses Present, Tachycardic. Negative for: Regular Rate and Rhythm, Murmurs, Rub, Gallop Abdomen: Positive for: Tenderness (diffuse), Distention (moderate). Negative for: Normal Bowel Sounds (hypoactive), Peritoneal Signs, Rebound, Guarding Upper Extremity: Positive for: Normal Inspection. Negative for: Cyanosis, Edema Lower Extremity: Positive for: Normal Inspection, Edema (B/L, minimal) Neurological: Positive for: GCS=15, CN II-XII Intact, Speech Normal Skin: Positive for: Warm, Dry, Normal Color. Negative for: Rashes Psychiatric: Positive for: Alert, Oriented x 3, Normal Insight, Normal Concentration - Medications Active Medications: Active Medications Generic Name Dose Route Start Last Admin Trade Name Freq PRN Reason Stop Dose Admin Acetaminophen 650 mg 11/08/16 20:26 Tylenol 325mg Tab PO Q6 PRN Fever >100.4 F Albuterol/Ipratropium 3 ml 11/09/16 02:00 01/31/17 07:30 Duoneb 3 Mg/0.5 Mg (3 Ml) Ud INH 3 ml RQ6 [facility] Administration Alprazolam 2 mg 11/14/16 22:30 11/16/16 20:28 Xanax PO 2 mg HS PRN Administration Anxiety Aripiprazole 5 mg 11/07/16 10:00 11/17/16 10:07 Abilify PO Not Given DAILY [facility] Aspirin 81 mg 11/07/16 10:00 11/16/16 09:49 Aspirin Chewable PO 81 mg DAILY [facility] Administration Clopidogrel Bisulfate 75 mg 11/07/16 10:00 11/08/16 10:24 Plavix PO 75 mg DAILY [facility] Administration Docusate Sodium 100 mg 11/16/16 10:45 11/17/16 10:15 Colace PO Not Given DAILY [facility] Enoxaparin Sodium 40 mg 11/07/16 10:00 11/16/16 09:50 Lovenox SC 40 mg DAILY [facility] Administration Famotidine 20 mg 11/07/16 10:00 11/17/16 10:00 Pepcid PO Not Given BID [facility] Famotidine 20 mg 11/17/16 10:15 11/17/16 11:59 Pepcid IVP 20 mg BID [facility] Administration Trimethoprim/Sulfamethoxazole 250 mls @ 200 mls/hr 11/11/16 03:30 11/17/16 12: 00 240 mg/ Dextrose IVPB 200 mls/hr Q8H [facility] Administration Ciprofloxacin 200 mls @ 133 mls/hr 11/14/16 14:00 11/17/16 01:07 Cipro 400mg/200ml Dsw IVPB 133 mls/hr Q12H [facility] Administration Dextrose/Sodium Chloride 1,000 mls @ 100 mls/hr 11/15/16 11:45 11/17/16 08:46 Dextrose 5%/0.9% Ns 1000 Ml IV 100 mls/hr .Q10H [facility] Administration Levetiracetam 500 mg 11/09/16 18:00 11/17/16 10:00 Keppra PO Not Given BID [facility] Methylprednisolone 40 mg 11/09/16 14:00 11/17/16 06:24 Solu-Medrol IV 40 mg Q8 [facility] Administration Morphine Sulfate 4 mg 11/13/16 22:23 11/17/16 04:13 Morphine Sulfate IVP 4 mg Q4 PRN Administration Pain, moderate (4-7) Ondansetron HCl 4 mg 11/13/16 19:14 11/16/16 16:10 Zofran Inj IVP 4 mg Q4H PRN Administration Nausea/Vomiting Oxycodone/Acetaminophen 1 tab 11/15/16 17:18 11/16/16 10:02 Percocet 5/325 Mg Tab PO 11/18/16 17:19 1 tab Q4H PRN Administration Pain, moderate (4-7) Saccharomyces Boulardii 250 mg 11/11/16 12:30 11/17/16 10:00 Florastor PO Not Given DAILY [facility] Sertraline HCl 100 mg 11/07/16 10:00 11/17/16 10:14 Zoloft PO Not Given DAILY [facility] Spironolactone 25 mg 11/15/16 17:15 Aldactone PO QD7 [facility] - Patient Studies Lab Studies: Lab Studies 11/17/16 11/17/16 11/16/16 Range/Units 10:20 05:40 17:00 WBC 9.8 (4.8-10.8) K/uL RBC 2.97 L (3.80-5.20) Mil/uL Hgb 8.9 L (11.0-16.0) g/dL Hct 26.9 L (34.0-47.0) % MCV 90.4 (81.0-99.0) fL MCH 29.9 (27.0-31.0) pg MCHC 33.0 (33.0-37.0) g/dL RDW 16.0 H (11.5-14.5) % Plt Count 252 (130-400) K/uL MPV 7.5 (7.2-11.7) fL Neut % (Auto) 94.0 H (50.0-75.0) % Lymph % (Auto) 4.1 L (20.0-40.0) % [place] % (Auto) 1.7 (0.0-10.0) % Eos % (Auto) 0.0 (0.0-4.0) % Baso % (Auto) 0.2 (0.0-2.0) % Neut # 9.2 H (1.8-7.0) K/uL Lymph # 0.4 L (1.0-4.3) K/uL [place] # 0.2 (0.0-0.8) K/uL Eos # 0.0 (0.0-0.7) K/uL Baso # 0.0 (0.0-0.2) K/uL Neutrophils % (Manual) 91 H (50-75) % Band Neutrophils % 3 H (0-2) % Lymphocytes % (Manual) 5 L (20-40) % Monocytes % (Manual) 1 (0-10) % Platelet Estimate Normal (NORMAL) Anisocytosis (manual) Slight Puncture Site Rb pCO2 47 H (35-45) mm/Hg pO2 71 L (80-100) mm/Hg HCO3 26.7 (21-28) mmol/L ABG pH 7.38 (7.35-7.45) ABG Total CO2 29.2 H (22-28) mmol/L ABG O2 Saturation 97.4 (95-98) % ABG Base Excess 2.3 (-2.0-3.0) mmol/L ABG Hemoglobin 8.4 L (11.7-17.4) g/dL ABG Carboxyhemoglobin 2.4 H (0.5-1.5) % POC ABG HHb (Measured) 2.5 (0.0-5.0) % ABG Methemoglobin 0.6 (0.0-3.0) % Reese Test Na A-a O2 Difference 512.0 mm/Hg Respiratory Index 7.2 Hgb O2 Saturation 94.4 L (95.0-98.0) % FiO2 90.0 % Inspiratory BiPAP 12 Expiratory BiPAP 6 Sodium 135 (132-148) mmol/L Potassium 4.9 (3.6-5.2) mmol/L Chloride 100 (98-107) mmol/L Carbon Dioxide 28 (22-30) mmol/L Anion Gap 12 (10-20) BUN 12 (7-17) mg/dL Creatinine 0.7 (0.7-1.2) MG/DL Est GFR ( Amer) > 60 Est GFR (Non-Af Amer) > 60 Random Glucose 96 (65-105) mg/dL Calcium 7.5 L (8.6-10.4) mg/dl Phosphorus 4.1 (2.5-4.5) mg/dL Magnesium 1.7 (1.6-2.3) mg/dL Total Bilirubin 0.1 L (0.2-1.3) mg/dL AST 13 L D (14-36) U/L ALT 32 (9-52) U/L Alkaline Phosphatase 110 (38-126) U/L Total Protein 4.6 L (6.3-8.3) g/dL Albumin 2.1 L (3.5-5.0) g/dL Globulin 2.5 (2.2-3.9) gm/dL Albumin/Globulin Ratio 0.8 L (1.0-2.1) Urine Color Yellow (YELLOW) Urine Clarity Clear (Clear) Urine pH 5.0 (5.0-8.0) Ur Specific [place] 1.014 (1.003-1.030) Urine Protein Negative (NEGATIVE) mg/dL Urine Glucose (UA) Normal (Normal) mg/dL Urine Ketones Negative (NEGATIVE) mg/dL Urine Blood Negative (NEGATIVE) Urine Nitrate Negative (NEGATIVE) Urine Bilirubin Negative (NEGATIVE) Urine Urobilinogen Normal (0.2-1.0) mg/dL Ur Leukocyte Esterase Neg (Negative) Sung/uL Urine WBC (Auto) 3 (0-5) /hpf Urine RBC (Auto) 1 (0-3) /hpf Ur Squamous Epith Cells < 1 (0-5) /hpf Urine Bacteria Rare (<OCC) Laboratory Results - last 24 hr 11/16/16 11/17/16 11/17/16 17:00 05:40 10:20 WBC 9.8 RBC 2.97 L Hgb 8.9 L Hct 26.9 L MCV 90.4 MCH 29.9 MCHC 33.0 RDW 16.0 H Plt Count 252 MPV 7.5 Neut % (Auto) 94.0 H Lymph % (Auto) 4.1 L [place] % (Auto) 1.7 Eos % (Auto) 0.0 Baso % (Auto) 0.2 Neut # 9.2 H Lymph # 0.4 L [place] # 0.2 Eos # 0.0 Baso # 0.0 Neutrophils % (Manual) 91 H Band Neutrophils % 3 H Lymphocytes % (Manual) 5 L Monocytes % (Manual) 1 Platelet Estimate Normal Anisocytosis (manual) Slight Puncture Site Rb pCO2 47 H pO2 71 L HCO3 26.7 ABG pH 7.38 ABG Total CO2 29.2 H ABG O2 Saturation 97.4 ABG Base Excess 2.3 ABG Hemoglobin 8.4 L ABG Carboxyhemoglobin 2.4 H POC ABG HHb (Measured) 2.5 ABG Methemoglobin 0.6 Reese Test Na A-a O2 Difference 512.0 Respiratory Index 7.2 Hgb O2 Saturation 94.4 L FiO2 90.0 Inspiratory BiPAP 12 Expiratory BiPAP 6 Sodium 135 Potassium 4.9 Chloride 100 Carbon Dioxide 28 Anion Gap 12 BUN 12 Creatinine 0.7 Est GFR ( Amer) > 60 Est GFR (Non-Af Amer) > 60 Random Glucose 96 Calcium 7.5 L Phosphorus 4.1 Magnesium 1.7 Total Bilirubin 0.1 L AST 13 L D ALT 32 Alkaline Phosphatase 110 Total Protein 4.6 L Albumin 2.1 L Globulin 2.5 Albumin/Globulin Ratio 0.8 L Urine Color Yellow Urine Clarity Clear Urine pH 5.0 Ur Specific [place] 1.014 Urine Protein Negative Urine Glucose (UA) Normal Urine Ketones Negative Urine Blood Negative Urine Nitrate Negative Urine Bilirubin Negative Urine Urobilinogen Normal Ur Leukocyte Esterase Neg Urine WBC (Auto) 3 Urine RBC (Auto) 1 Ur Squamous Epith Cells < 1 Urine Bacteria Rare Review of Systems - Review of Systems All systems: reviewed and no additional remarkable complaints except - Constitutional Constitutional: absent: Fever, Chills - EENT Nose/Mouth/Throat: UNREMARKABLE. absent: Dry Mouth - Cardiovascular Cardiovascular: UNREMARKABLE. absent: Chest Pain - Respiratory Respiratory: Cough - Gastrointestinal Gastrointestinal: Abdominal Pain, Constipation, Nausea. absent: Vomiting - Musculoskeletal Musculoskeletal: Back Pain Critical Care Progress Note - Ventilator Checklist Head of Bed 30 Degrees: Yes - Extremities/Vascular Does the Patient have a Central Venous Catheter?: Yes Insertion Site: Internal Jugular Vein Does the Patient need a Central Venous Catheter?: Yes Does the Patient have a Mishra Catheter?: No Does the Patient need a Mishra Catheter?: No - Prophylaxis GI Prophylaxis GI: Pepsid - Prophylaxis DVT Prophylaxis DVT: Lovenox - Nutrition Nutrition: Nutrition Category Date Time Status NPO Diet [DIET] Diets 11/16/16 Dinner Active Assessment/Plan - Assessment and Plan (Free Text) Assessment: 51F respiratory distress w/ likely idiopathic pulmonary fibrosis. For OR today- EBUS. Plan: Neuro Awake Alert Stable Cont home meds: Zoloft, Xanax, Abilify, Keppra Seizure precautions Monitor CVS Stable ASA Plavix held Monitor Pulm Bipap at night VTM during day Duonebs SOlu-medrol CXR - No sig interval change Pulm following- plans for bronch/lung bx today Nephro Hyperkalemia- resolved Spironolactone- held Monitor GI NPO for procedure Probiotic Zofran Colace started Enema yesterday- no output Morphine Hepatobiliary surgery following Gen surg following- SBO mgmt as per surgery Voids on own MOnitor Heme Hgb 8.9 from 10.2 Hct 26.9 from 30.6 Monitor Endo Sugars WNL Monitor MSK Monitor for skin break down ID Urine cx - Klebsiella PNA No leukocytosis Afebrile over last 24H Bactrim Cipro Tylenol PRN Blood cx neg x 5D FU Legionella ID following GI/DVT ppx Pepcid Lovenox Dispo: Continue ICU care For OR - lung bx/bronchoscopy DW attending - Date & Time Date: 11/17/16 Time: 07:00 <Hunter Graham - Last Filed: 11/17/16 16:02> CCU Objective - Vital Signs / Intake & Output Vital Signs (Last 4 hours): Vital Signs Pulse Resp BP Pulse Ox 11/17/16 15:52 98 H 11/17/16 14:00 99 H 19 99/64 L 94 L 11/17/16 13:20 101 H 11/17/16 13:00 101 H 21 106/63 93 L Intake and Output (Last 8hrs): Intake & Output 11/17/16 11/17/16 11/17/16 06:59 14:59 22:59 Intake Total 950 950 Output Total 610 850 Balance 340 100 Weight 147 lb 11.355 oz Intake: Intake, IV Amount 950 950 Right Distal Port 950 950 Internal Jugular Oral 0 Output: Urine 610 850 Urethral (Mishra) 610 850 Emesis 0 Other: # Bowel Movements 0 - Medications Active Medications: Active Medications Generic Name Dose Route Start Last Admin Trade Name Freq PRN Reason Stop Dose Admin Acetaminophen 650 mg 11/08/16 20:26 Tylenol 325mg Tab PO Q6 PRN Fever >100.4 F Albuterol/Ipratropium 3 ml 11/09/16 02:00 11/17/16 13:19 Duoneb 3 Mg/0.5 Mg (3 Ml) Ud INH 3 ml RQ6 [facility] Administration Alprazolam 2 mg 11/14/16 22:30 11/16/16 20:28 Xanax PO 2 mg HS PRN Administration Anxiety Aripiprazole 5 mg 11/07/16 10:00 11/17/16 10:07 Abilify PO Not Given DAILY [facility] Aspirin 81 mg 11/07/16 10:00 11/16/16 09:49 Aspirin Chewable PO 81 mg DAILY [facility] Administration Clopidogrel Bisulfate 75 mg 11/07/16 10:00 11/08/16 10:24 Plavix PO 75 mg DAILY [facility] Administration Docusate Sodium 100 mg 11/16/16 10:45 11/17/16 10:15 Colace PO Not Given DAILY [facility] Enoxaparin Sodium 40 mg 11/07/16 10:00 11/16/16 09:50 Lovenox SC 40 mg DAILY [facility] Administration Famotidine 20 mg 11/07/16 10:00 11/17/16 10:00 Pepcid PO Not Given BID [facility] Famotidine 20 mg 11/17/16 10:15 11/17/16 11:59 Pepcid IVP 20 mg BID [facility] Administration Trimethoprim/Sulfamethoxazole 250 mls @ 200 mls/hr 11/11/16 03:30 11/17/16 12: 00 240 mg/ Dextrose IVPB 200 mls/hr Q8H [facility] Administration Ciprofloxacin 200 mls @ 133 mls/hr 11/14/16 14:00 11/17/16 12:59 Cipro 400mg/200ml Dsw IVPB 133 mls/hr Q12H [facility] Administration Dextrose/Sodium Chloride 1,000 mls @ 100 mls/hr 11/15/16 11:45 11/17/16 08:46 Dextrose 5%/0.9% Ns 1000 Ml IV 100 mls/hr .Q10H [facility] Administration Levetiracetam 500 mg 11/09/16 18:00 11/17/16 10:00 Keppra PO Not Given BID [facility] Methylprednisolone 40 mg 11/09/16 14:00 11/17/16 13:00 Solu-Medrol IV 40 mg Q8 [facility] Administration Morphine Sulfate 4 mg 11/13/16 22:23 11/17/16 12:55 Morphine Sulfate IVP 4 mg Q4 PRN Administration Pain, moderate (4-7) Ondansetron HCl 4 mg 11/13/16 19:14 11/16/16 16:10 Zofran Inj IVP 4 mg Q4H PRN Administration Nausea/Vomiting Oxycodone/Acetaminophen 1 tab 11/15/16 17:18 11/16/16 10:02 Percocet 5/325 Mg Tab PO 11/18/16 17:19 1 tab Q4H PRN Administration Pain, moderate (4-7) Saccharomyces Boulardii 250 mg 11/11/16 12:30 11/17/16 10:00 Florastor PO Not Given DAILY [facility] Sertraline HCl 100 mg 11/07/16 10:00 11/17/16 10:14 Zoloft PO Not Given DAILY [facility] Spironolactone 25 mg 11/15/16 17:15 Aldactone PO QD7 [facility] - Patient Studies Lab Studies: Microbiology Studies 11/16/16 Unknown Urine Culture - Preliminary Urine,Clean Catch Lab Studies 11/17/16 11/17/16 11/16/16 Range/Units 10:20 05:40 17:00 WBC 9.8 (4.8-10.8) K/uL RBC 2.97 L (3.80-5.20) Mil/uL Hgb 8.9 L (11.0-16.0) g/dL Hct 26.9 L (34.0-47.0) % MCV 90.4 (81.0-99.0) fL MCH 29.9 (27.0-31.0) pg MCHC 33.0 (33.0-37.0) g/dL RDW 16.0 H (11.5-14.5) % Plt Count 252 (130-400) K/uL MPV 7.5 (7.2-11.7) fL Neut % (Auto) 94.0 H (50.0-75.0) % Lymph % (Auto) 4.1 L (20.0-40.0) % [place] % (Auto) 1.7 (0.0-10.0) % Eos % (Auto) 0.0 (0.0-4.0) % Baso % (Auto) 0.2 (0.0-2.0) % Neut # 9.2 H (1.8-7.0) K/uL Lymph # 0.4 L (1.0-4.3) K/uL [place] # 0.2 (0.0-0.8) K/uL Eos # 0.0 (0.0-0.7) K/uL Baso # 0.0 (0.0-0.2) K/uL Neutrophils % (Manual) 91 H (50-75) % Band Neutrophils % 3 H (0-2) % Lymphocytes % (Manual) 5 L (20-40) % Monocytes % (Manual) 1 (0-10) % Platelet Estimate Normal (NORMAL) Anisocytosis (manual) Slight Puncture Site Rb pCO2 47 H (35-45) mm/Hg pO2 71 L (80-100) mm/Hg HCO3 26.7 (21-28) mmol/L ABG pH 7.38 (7.35-7.45) ABG Total CO2 29.2 H (22-28) mmol/L ABG O2 Saturation 97.4 (95-98) % ABG Base Excess 2.3 (-2.0-3.0) mmol/L ABG Hemoglobin 8.4 L (11.7-17.4) g/dL ABG Carboxyhemoglobin 2.4 H (0.5-1.5) % POC ABG HHb (Measured) 2.5 (0.0-5.0) % ABG Methemoglobin 0.6 (0.0-3.0) % Reese Test Na A-a O2 Difference 512.0 mm/Hg Respiratory Index 7.2 Hgb O2 Saturation 94.4 L (95.0-98.0) % FiO2 90.0 % Inspiratory BiPAP 12 Expiratory BiPAP 6 Sodium 135 (132-148) mmol/L Potassium 4.9 (3.6-5.2) mmol/L Chloride 100 (98-107) mmol/L Carbon Dioxide 28 (22-30) mmol/L Anion Gap 12 (10-20) BUN 12 (7-17) mg/dL Creatinine 0.7 (0.7-1.2) MG/DL Est GFR ( Amer) > 60 Est GFR (Non-Af Amer) > 60 Random Glucose 96 (65-105) mg/dL Calcium 7.5 L (8.6-10.4) mg/dl Phosphorus 4.1 (2.5-4.5) mg/dL Magnesium 1.7 (1.6-2.3) mg/dL Total Bilirubin 0.1 L (0.2-1.3) mg/dL AST 13 L D (14-36) U/L ALT 32 (9-52) U/L Alkaline Phosphatase 110 (38-126) U/L Total Protein 4.6 L (6.3-8.3) g/dL Albumin 2.1 L (3.5-5.0) g/dL Globulin 2.5 (2.2-3.9) gm/dL Albumin/Globulin Ratio 0.8 L (1.0-2.1) Urine Color Yellow (YELLOW) Urine Clarity Clear (Clear) Urine pH 5.0 (5.0-8.0) Ur Specific [place] 1.014 (1.003-1.030) Urine Protein Negative (NEGATIVE) mg/dL Urine Glucose (UA) Normal (Normal) mg/dL Urine Ketones Negative (NEGATIVE) mg/dL Urine Blood Negative (NEGATIVE) Urine Nitrate Negative (NEGATIVE) Urine Bilirubin Negative (NEGATIVE) Urine Urobilinogen Normal (0.2-1.0) mg/dL Ur Leukocyte Esterase Neg (Negative) Sung/uL Urine WBC (Auto) 3 (0-5) /hpf Urine RBC (Auto) 1 (0-3) /hpf Ur Squamous Epith Cells < 1 (0-5) /hpf Urine Bacteria Rare (<OCC) Blood Type Antibody Screen Antibody Identification KELLY, Poly Interpret (NEGATIVE) 11/16/16 Range/Units 06:30 WBC (4.8-10.8) K/uL RBC (3.80-5.20) Mil/uL Hgb (11.0-16.0) g/dL Hct (34.0-47.0) % MCV (81.0-99.0) fL MCH (27.0-31.0) pg MCHC (33.0-37.0) g/dL RDW (11.5-14.5) % Plt Count (130-400) K/uL MPV (7.2-11.7) fL Neut % (Auto) (50.0-75.0) % Lymph % (Auto) (20.0-40.0) % [place] % (Auto) (0.0-10.0) % Eos % (Auto) (0.0-4.0) % Baso % (Auto) (0.0-2.0) % Neut # (1.8-7.0) K/uL Lymph # (1.0-4.3) K/uL [place] # (0.0-0.8) K/uL Eos # (0.0-0.7) K/uL Baso # (0.0-0.2) K/uL Neutrophils % (Manual) (50-75) % Band Neutrophils % (0-2) % Lymphocytes % (Manual) (20-40) % Monocytes % (Manual) (0-10) % Platelet Estimate (NORMAL) Anisocytosis (manual) Puncture Site pCO2 (35-45) mm/Hg pO2 (80-100) mm/Hg HCO3 (21-28) mmol/L ABG pH (7.35-7.45) ABG Total CO2 (22-28) mmol/L ABG O2 Saturation (95-98) % ABG Base Excess (-2.0-3.0) mmol/L ABG Hemoglobin (11.7-17.4) g/dL ABG Carboxyhemoglobin (0.5-1.5) % POC ABG HHb (Measured) (0.0-5.0) % ABG Methemoglobin (0.0-3.0) % Reese Test A-a O2 Difference mm/Hg Respiratory Index Hgb O2 Saturation (95.0-98.0) % FiO2 % Inspiratory BiPAP Expiratory BiPAP Sodium (132-148) mmol/L Potassium (3.6-5.2) mmol/L Chloride (98-107) mmol/L Carbon Dioxide (22-30) mmol/L Anion Gap (10-20) BUN (7-17) mg/dL Creatinine (0.7-1.2) MG/DL Est GFR ( Amer) Est GFR (Non-Af Amer) Random Glucose (65-105) mg/dL Calcium (8.6-10.4) mg/dl Phosphorus (2.5-4.5) mg/dL Magnesium (1.6-2.3) mg/dL Total Bilirubin (0.2-1.3) mg/dL AST (14-36) U/L ALT (9-52) U/L Alkaline Phosphatase (38-126) U/L Total Protein (6.3-8.3) g/dL Albumin (3.5-5.0) g/dL Globulin (2.2-3.9) gm/dL Albumin/Globulin Ratio (1.0-2.1) Urine Color (YELLOW) Urine Clarity (Clear) Urine pH (5.0-8.0) Ur Specific [place] (1.003-1.030) Urine Protein (NEGATIVE) mg/dL Urine Glucose (UA) (Normal) mg/dL Urine Ketones (NEGATIVE) mg/dL Urine Blood (NEGATIVE) Urine Nitrate (NEGATIVE) Urine Bilirubin (NEGATIVE) Urine Urobilinogen (0.2-1.0) mg/dL Ur Leukocyte Esterase (Negative) Sung/uL Urine WBC (Auto) (0-5) /hpf Urine RBC (Auto) (0-3) /hpf Ur Squamous Epith Cells (0-5) /hpf Urine Bacteria (<OCC) Blood Type AB POSITIVE Antibody Screen Positive Antibody Identification Non Specific Antibody KELLY, Poly Interpret Negative (NEGATIVE) Laboratory Results - last 24 hr 11/16/16 11/16/16 11/17/16 06:30 17:00 05:40 WBC 9.8 RBC 2.97 L Hgb 8.9 L Hct 26.9 L MCV 90.4 MCH 29.9 MCHC 33.0 RDW 16.0 H Plt Count 252 MPV 7.5 Neut % (Auto) 94.0 H Lymph % (Auto) 4.1 L [place] % (Auto) 1.7 Eos % (Auto) 0.0 Baso % (Auto) 0.2 Neut # 9.2 H Lymph # 0.4 L [place] # 0.2 Eos # 0.0 Baso # 0.0 Neutrophils % (Manual) 91 H Band Neutrophils % 3 H Lymphocytes % (Manual) 5 L Monocytes % (Manual) 1 Platelet Estimate Normal Anisocytosis (manual) Slight Puncture Site pCO2 pO2 HCO3 ABG pH ABG Total CO2 ABG O2 Saturation ABG Base Excess ABG Hemoglobin ABG Carboxyhemoglobin POC ABG HHb (Measured) ABG Methemoglobin Reese Test A-a O2 Difference Respiratory Index Hgb O2 Saturation FiO2 Inspiratory BiPAP Expiratory BiPAP Sodium 135 Potassium 4.9 Chloride 100 Carbon Dioxide 28 Anion Gap 12 BUN 12 Creatinine 0.7 Est GFR ( Amer) > 60 Est GFR (Non-Af Amer) > 60 Random Glucose 96 Calcium 7.5 L Phosphorus 4.1 Magnesium 1.7 Total Bilirubin 0.1 L AST 13 L D ALT 32 Alkaline Phosphatase 110 Total Protein 4.6 L Albumin 2.1 L Globulin 2.5 Albumin/Globulin Ratio 0.8 L Urine Color Yellow Urine Clarity Clear Urine pH 5.0 Ur Specific [place] 1.014 Urine Protein Negative Urine Glucose (UA) Normal Urine Ketones Negative Urine Blood Negative Urine Nitrate Negative Urine Bilirubin Negative Urine Urobilinogen Normal Ur Leukocyte Esterase Neg Urine WBC (Auto) 3 Urine RBC (Auto) 1 Ur Squamous Epith Cells < 1 Urine Bacteria Rare Blood Type AB POSITIVE Antibody Screen Positive Antibody Identification Non Specific Antibody KELLY, Poly Interpret Negative 11/17/16 10:20 WBC RBC Hgb Hct MCV MCH MCHC RDW Plt Count MPV Neut % (Auto) Lymph % (Auto) [place] % (Auto) Eos % (Auto) Baso % (Auto) Neut # Lymph # [place] # Eos # Baso # Neutrophils % (Manual) Band Neutrophils % Lymphocytes % (Manual) Monocytes % (Manual) Platelet Estimate Anisocytosis (manual) Puncture Site Rb pCO2 47 H pO2 71 L HCO3 26.7 ABG pH 7.38 ABG Total CO2 29.2 H ABG O2 Saturation 97.4 ABG Base Excess 2.3 ABG Hemoglobin 8.4 L ABG Carboxyhemoglobin 2.4 H POC ABG HHb (Measured) 2.5 ABG Methemoglobin 0.6 Reese Test Na A-a O2 Difference 512.0 Respiratory Index 7.2 Hgb O2 Saturation 94.4 L FiO2 90.0 Inspiratory BiPAP 12 Expiratory BiPAP 6 Sodium Potassium Chloride Carbon Dioxide Anion Gap BUN Creatinine Est GFR ( Amer) Est GFR (Non-Af Amer) Random Glucose Calcium Phosphorus Magnesium Total Bilirubin AST ALT Alkaline Phosphatase Total Protein Albumin Globulin Albumin/Globulin Ratio Urine Color Urine Clarity Urine pH Ur Specific [place] Urine Protein Urine Glucose (UA) Urine Ketones Urine Blood Urine Nitrate Urine Bilirubin Urine Urobilinogen Ur Leukocyte Esterase Urine WBC (Auto) Urine RBC (Auto) Ur Squamous Epith Cells Urine Bacteria Blood Type Antibody Screen Antibody Identification KELLY, Poly Interpret Critical Care Progress Note - Nutrition Nutrition: Nutrition Category Date Time Status NPO Diet [DIET] Diets 11/16/16 Dinner Active Assessment/Plan (1) Respiratory insufficiency Current Visit: Yes Status: Acute (2) Bilateral pneumonia Current Visit: No Status: Acute (3) Small bowel obstruction Current Visit: Yes Status: Acute Attending/Attestation - Attestation I have personally seen and examined this patient.: Yes I have fully participated in the care of the patient.: Yes I have reviewed all pertinent clinical information: Yes Notes (Text): 11/17/16 16:01 Patient seen and examined in the intensive care unit. Case discussed with house staff in the morning rounds. Remains on BiPAP Desaturates without oxygen and BiPAP For lung biopsy today Continue antibiotics and steroids
[2016-11-17] MEDS ORDERED: Midazolam 2 MG/2 ML VIAL ONE (17:32)
[2016-11-17] MEDS ORDERED: Propofol 10 mg/ml Inj (20 ML) ONE (17:33)
[2016-11-17] MEDS ORDERED: Rocuronium 10 mg/ml (5 ml) ONE (17:35)
[2016-11-17] MEDS ORDERED: Bupivacaine HCl 0.25% PF (10 ml) Inj ONE ×2 (18:47→19:23)
--- NOTE | 2016-11-17 20:06 | PCM.SURG1 ---
Surgeon's Initial Post Op Note - Surgeon's Notes Surgeon: Dr. Chan Senior Vice President & General Counsel: Dr. Medrano Type of Anesthesia: General Endo Anesthesia Administered By: Neil Pre-Operative Diagnosis: Diffuse Lung disease Operative Findings: same Post-Operative Diagnosis: same Operation Performed: Flexible bronchoscopy. Right VATs with RLL wedge resection Specimen/Specimens Removed: RLL wedge resection Estimated Blood Loss: EBL {In ML}: 10 Blood Products Given: N/A Drains Used: Chest Tubes Post-Op Condition: Fair Date of Surgery/Procedure: 11/17/16 Time of Surgery/Procedure: 20:06
[2016-11-17] MEDS ORDERED: Morphine 4 MG/ML VIAL IVP PRN (20:21)
[2016-11-17 21:02] LABS: CHLORIDE 99 mmol/L (98-107); SODIUM 131 mmol/L (132-148)
[2016-11-17 21:05] LABS: BLOOD UREA NITROGEN 11 mg/dL (7-17); CARBON DIOXIDE 28 mmol/L (22-30); GFR AFRICAN-AMERICAN > 60
[2016-11-17 21:06] LABS: CALCIUM 7.8 mg/dl (8.6-10.4); GLUCOSE,RANDOM 99 mg/dL (65-105)
[2016-11-17] MEDS: Sodium Chloride 0.9% 1,000 ML IV SCH (21:10)
[2016-11-17 21:18] LABS: ABG ALLEN TEST POS; ARTERIAL BLOOD HGB O2 SAT 94.3 % (95.0-98.0); ATERIAL BLOOD GAS PEEP 8; DRAW SITE RRA; HHB 2.6 % (0.0-5.0); METHEMOGLOBIN 1.1 % (0.0-3.0)
[2016-11-17] MEDS ORDERED: Sod Polystyrene Sulf 15 gm/60 ml Oral Susp PO ONE (22:11)
[2016-11-17] MEDS: HYDROmorphone 1 mg/ml ISec IVP PRN (22:43)
[2016-11-18] MEDS: Albuterol-Ipratrop 3 mg / 0.5 (3 ml) UD INH SCH ×3 (01:34→13:13)
[2016-11-18] MEDS: HYDROmorphone 1 mg/ml ISec IVP PRN ×7 (01:50→20:12)
[2016-11-18] MEDS: Ciprofloxacin 400mg/200ml D5W 200 ML IVPB SCH ×2 (02:16→14:07)
[2016-11-18 05:43] LABS: ABG ALLEN TEST POS; ABG MECHANICAL RATE 14; ARTERIAL BLOOD HGB O2 SAT 88.4 % (95.0-98.0); ATERIAL BLOOD GAS PEEP 8; CARBOXYHEMOGLOBIN 2.3 % (0.5-1.5); DRAW SITE RR; HHB 8.2 % (0.0-5.0); METHEMOGLOBIN 1.1 % (0.0-3.0)
[2016-11-18 06:42] LABS: BASO % 0.2 % (0.0-2.0); HEMATOCRIT 28.5 % (34.0-47.0); LYMPH # 1.1 K/uL (1.0-4.3); LYMPH % 10.6 % (20.0-40.0); MEAN CELL VOLUME 91.1 fL (81.0-99.0); MEAN CORPUSCULAR HEMOGLOBIN 29.3 pg (27.0-31.0); MEAN CORPUSCULAR HGB CONC 32.2 g/dL (33.0-37.0); MEAN PLATELET VOLUME 7.2 fL (7.2-11.7); MONO # 0.4 K/uL (0.0-0.8); MONO % 3.8 % (0.0-10.0); WHITE BLOOD COUNT 10.6 K/uL (4.8-10.8)
[2016-11-18 06:47] LABS: CHLORIDE 98 mmol/L (98-107); SODIUM 133 mmol/L (132-148)
[2016-11-18 06:48] LABS: POTASSIUM 4.6 mmol/L (3.6-5.2)
[2016-11-18 06:49] LABS: GFR AFRICAN-AMERICAN > 60
[2016-11-18 06:50] LABS: ALB/GLOB RATIO 0.8 (1.0-2.1); ALKALINE PHOSPHATASE 118 U/L (38-126); ALT/SGPT 29 U/L (9-52); AST/SGOT 17 U/L (14-36); BILIRUBIN,TOTAL 0.4 mg/dL (0.2-1.3); BLOOD UREA NITROGEN 10 mg/dL (7-17); CARBON DIOXIDE 30 mmol/L (22-30); GLUCOSE,RANDOM 73 mg/dL (65-105); PHOSPHOROUS 3.9 mg/dL (2.5-4.5); TOTAL PROTEIN 5.2 g/dL (6.3-8.3)
[2016-11-18 06:51] LABS: CALCIUM 7.6 mg/dl (8.6-10.4); MAGNESIUM 1.6 mg/dL (1.6-2.3)
[2016-11-18] MEDS: Enoxaparin 40 mg Syringe SC SCH (09:31)
[2016-11-18] MEDS: Saccharomyces Boulardi 250 mg Cap PO SCH (09:31)
[2016-11-18] MEDS: levETIRAcetam 100 mg/ml (5ml) Oral Syringe PO SCH ×2 (09:31→17:17)
--- NOTE | 2016-11-18 10:10 | RAD ---
HISTORY: s/p VATs/wedge resection COMPARISON: 11/17/2016 FINDINGS: LUNGS: Interval placement of an endotracheal tube extending into the mid thoracic trachea. NG tube extending into the stomach. Other lines and tubes stable position. Dense diffuse airspace opacifications throughout both lungs, not significantly changed. Bibasilar airspace opacities. PLEURA: As above. CARDIOVASCULAR: Normal. OSSEOUS STRUCTURES: Degenerative changes in the spine and shoulders. VISUALIZED UPPER ABDOMEN: Surgical clips in the upper abdomen. OTHER FINDINGS: None. IMPRESSION: Interval placement of an endotracheal tube extending into the mid thoracic trachea. NG tube extending into the stomach. Other lines and tubes stable position. Dense diffuse airspace opacifications throughout both lungs, not significantly changed. Bibasilar airspace opacities.
--- NOTE | 2016-11-18 10:32 | RAD ---
HISTORY: intubated COMPARISON: 11/17/2016 FINDINGS: LUNGS: Lines and tubes in stable position. Diffuse consolidative changes throughout both lungs with bibasilar airspace opacities. Small right pleural effusion. PLEURA: As above. CARDIOVASCULAR: Cardiomegaly. OSSEOUS STRUCTURES: No significant abnormalities. VISUALIZED UPPER ABDOMEN: Normal. OTHER FINDINGS: None. IMPRESSION: Lines and tubes in stable position. Diffuse consolidative changes throughout both lungs with bibasilar airspace opacities. Small right pleural effusion.
--- NOTE | 2016-11-18 12:30 | CARD ---
APPROVED REPORT EKG Measurement Heart [id number] <Conclusion> Sinus tachycardia with occasional premature ventricular complexes Possible Left atrial enlargement Low voltage QRS Left anterior fascicular block Septal infarct, age undetermined Cannot rule out Inferior infarct, age undetermined Abnormal ECG
[2016-11-18] MEDS: Sodium Chloride 0.9% 1,000 ML IV SCH (17:19)
--- NOTE | 2016-11-18 18:09 | CP.CCUPN ---
<Mariana Robison - Last Filed: 11/18/16 18:07> CCU Subjective - Physician Review Events Since Last Encounter (Free Text): 11/18/16 18:07 Pt intubated and sedated on mech vent Subjective (Free Text): 11/10/16 12:04 Pt S & E this AM. Reports ab pain and SOB improved- on VTM. Had soft unformed BMs x 2 yesterday, 1 liquid stool today with large volume flatus. Denies N/V/F/C, chest pain. 11/11/16 12:38 Pt S & E this AM. Pt reports having 3 liquid stools yesterday, continues to require VTM 2/2 SOB, insomnia. Abdominal pain much improved, abdominal distention much improved. Denies N/V/F/C, chest pain. 11/12/16 14:26 Pt S & E this AM. Pt reports continued SOB, likes being on Bipap 2/2 less work to breathe. Ab pain improved, continues with liquid stools, now has non productive cough. 11/13/16 16:55 Pt S & E this AM. Pt continues w/SOB requiring Bipap overnight, using more Bipap vs. VTM mask, states she had insomnia overnight 2/2 SOB, needing to focus on breathing. Abdominal pain resolved. Had slight nausea yesterday with protein supplement. Had 1 liquid BM yesterday. Denies emesis, fevers, chills, chest pain. 11/16/16 13:44 P S & E this AM. Pt on BiPAP -tolerating it well. Pt admits to epigastric abdominal pain, hunger -asking for food. For OR tomorrow for bronchoscopy and wedge biopsy with Dr. Chan. 11/17/16 12:40 Pt S & E this AM. Pt stable on BiPAP confortable overnight. Continued epigastric pain but tolerating diet intermittently. No BM despite SS enema & colace. For bronchoscopy and wedge biopsy today with Dr. Chan. 11/18/16 18:07 Pt S & E this AM. Pt intubated/sedated, but alert, awake. Gesturing that her abdominal pain has resolved. Critical Care Time Spent (in minutes): 60 CCU Objective - Vital Signs / Intake & Output Vital Signs (Last 4 hours): Vital Signs Temp Pulse Resp BP Pulse Ox 11/18/16 16:00 97 F L 11/18/16 15:09 95 H 22 106/62 89 L 11/18/16 14:09 105 H 20 111/54 L Intake and Output (Last 8hrs): Intake & Output 11/18/16 11/18/16 11/18/16 06:59 14:59 22:59 Intake Total 780 570 176 Output Total 1425 920 250 Balance -645 -350 -74 Weight 70 kg Intake: Intake, IV Amount 630 440 116 Right Medial Port 30 40 16 Internal Jugular Right Distal Port 600 400 100 Internal Jugular Oral 150 50 Tube Feeding 80 60 Output: Chest Tube Drainage 100 20 0 Right Mid-Axillary Chest 100 20 0 Gastric Amount 250 0 Stomach 250 0 Urine 1075 900 250 Urethral (Mishra) 1075 900 250 - Physical Exam Head: Positive for: Atraumatic, Normocephalic Pupils: Positive for: PERRL Extroacular Muscles: Positive for: EOMI Conjunctiva: Positive for: Normal Ears: Positive for: Normal Mouth: Positive for: Moist Mucous Membranes, Other (ET & OG tubes in place) Pharnyx: Positive for: Normal Nose (External): Positive for: Atraumatic Neck: Positive for: Normal Range of Motion, Trachea Midline, Other (Right IJ (- ) erythema/drainage) Respiratory/Chest: Positive for: Good Air Exchange, Decreased Breath Sounds. Negative for: Clear to Auscultation (coarse BS b/l), Respiratory Distress, Accessory Muscle Use, Rales, Rhonchi Cardiovascular: Positive for: Normal S1, S2, Peripheal Pulses Present, Tachycardic. Negative for: Murmurs, Rub, Gallop Abdomen: Positive for: Distention (improving). Negative for: Tenderness, Normal Bowel Sounds (hypoactive), Peritoneal Signs, Rebound, Guarding Upper Extremity: Positive for: Normal Inspection. Negative for: Cyanosis, Edema Lower Extremity: Positive for: Normal Inspection. Negative for: Edema (B/L, minimal) Neurological: Positive for: GCS=15, CN II-XII Intact, Other (intubated/sedated) . Negative for: Speech Normal Skin: Positive for: Warm, Dry, Normal Color. Negative for: Rashes Psychiatric: Positive for: Alert, Oriented x 3, Normal Insight, Normal Concentration - Medications Active Medications: Active Medications Generic Name Dose Route Start Last Admin Trade Name Freq PRN Reason Stop Dose Admin Acetaminophen 650 mg 11/08/16 20:26 Tylenol 325mg Tab PO Q6 PRN Fever >100.4 F Alprazolam 0.5 mg 11/17/16 20:23 Xanax PO Q8H PRN Anxiety Aripiprazole 5 mg 11/07/16 10:00 11/18/16 09:30 Abilify PO 5 mg DAILY BALBINA Administration Aspirin 81 mg 11/07/16 10:00 11/16/16 09:49 Aspirin Chewable PO 81 mg DAILY BALBINA Administration Clopidogrel Bisulfate 75 mg 11/07/16 10:00 11/08/16 10:24 Plavix PO 75 mg DAILY BALBINA Administration Docusate Sodium 100 mg 11/16/16 10:45 11/18/16 09:31 Colace PO 100 mg DAILY BALBINA Administration Enoxaparin Sodium 40 mg 11/07/16 10:00 11/18/16 09:31 Lovenox SC 40 mg DAILY BALBINA Administration Famotidine 20 mg 11/07/16 10:00 11/17/16 10:00 Pepcid PO Not Given BID BALBINA Famotidine 20 mg 11/17/16 10:15 11/18/16 17:17 Pepcid IVP 20 mg BID BALBINA Administration Hydromorphone HCl 1 mg 11/17/16 22:34 11/18/16 17:17 Dilaudid IVP 1 mg Q3H PRN Administration Pain, severe (8-10) Trimethoprim/Sulfamethoxazole 250 mls @ 200 mls/hr 11/11/16 03:30 11/17/16 20: 58 240 mg/ Dextrose IVPB 200 mls/hr Q8H BALBINA Administration Ciprofloxacin 200 mls @ 133 mls/hr 11/14/16 14:00 11/18/16 14:07 Cipro 400mg/200ml Dsw IVPB 133 mls/hr Q12H BALBINA Administration Propofol 100 mls @ 2.01 mls/hr 11/17/16 20:19 11/18/16 17:25 Diprivan IV 3.216 mls/hr .Q24H PRN Administration TITRATE PER MD ORDER Protocol 5 MCG/KG/MIN Sodium Chloride 1,000 mls @ 50 mls/hr 11/17/16 21:00 11/18/16 17:19 Sodium Chloride 0.9% IV 50 mls/hr .Q20H BAL[facility]INA Administration Levetiracetam 500 mg 11/09/16 18:00 11/18/16 17:17 Keppra PO 500 mg BID BALBINA Administration Methylprednisolone 40 mg 11/09/16 14:00 11/18/16 14:06 Solu-Medrol IV 40 mg Q8 BALBINA Administration Morphine Sulfate 4 mg 11/13/16 22:23 11/17/16 21:19 Morphine Sulfate IVP 4 mg Q4 PRN Administration Pain, moderate (4-7) Ondansetron HCl 4 mg 11/13/16 19:14 11/16/16 16:10 Zofran Inj IVP 4 mg Q4H PRN Administration Nausea/Vomiting Saccharomyces Boulardii 250 mg 11/11/16 12:30 11/18/16 09:31 Florastor PO 250 mg DAILY BALBINA Administration Sertraline HCl 100 mg 11/07/16 10:00 11/18/16 09:30 Zoloft PO 100 mg DAILY BALB[place] Administration Spironolactone 25 mg 11/15/16 17:15 Aldactone PO QD7 BALBINA - Patient Studies Lab Studies: Microbiology Studies 11/16/16 Unknown Urine Culture - Final Urine,Clean Catch Yeast Species Lab Studies 11/18/16 11/18/16 11/17/16 Range/Units 06:31 05:14 21:10 WBC 10.6 (4.8-10.8) K/uL RBC 3.13 L (3.80-5.20) Mil/uL Hgb 9.2 L (11.0-16.0) g/dL Hct 28.5 L (34.0-47.0) % MCV 91.1 (81.0-99.0) fL MCH 29.3 (27.0-31.0) pg MCHC 32.2 L (33.0-37.0) g/dL RDW 16.0 H (11.5-14.5) % Plt Count 346 (130-400) K/uL MPV 7.2 (7.2-11.7) fL Neut % (Auto) 85.4 H (50.0-75.0) % Lymph % (Auto) 10.6 L (20.0-40.0) % [place] % (Auto) 3.8 (0.0-10.0) % Eos % (Auto) 0.0 (0.0-4.0) % Baso % (Auto) 0.2 (0.0-2.0) % Neut # 9.0 H (1.8-7.0) K/uL Lymph # 1.1 (1.0-4.3) K/uL [place] # 0.4 (0.0-0.8) K/uL Eos # 0.0 (0.0-0.7) K/uL Baso # 0.0 (0.0-0.2) K/uL Puncture Site Rr Rra pCO2 49 H 59 H (35-45) mm/Hg pO2 58 L 85 (80-100) mm/Hg HCO3 28.6 H 27.5 (21-28) mmol/L ABG pH 7.40 7.32 L (7.35-7.45) ABG Total CO2 31.9 H 32.2 H (22-28) mmol/L ABG O2 Saturation 91.5 L 97.3 (95-98) % ABG Base Excess 4.9 H 3.4 H (-2.0-3.0) mmol/L ABG Hemoglobin 8.9 L 9.2 L (11.7-17.4) g/dL ABG Carboxyhemoglobin 2.3 H 2.0 H (0.5-1.5) % POC ABG HHb (Measured) 8.2 H 2.6 (0.0-5.0) % ABG Methemoglobin 1.1 1.1 (0.0-3.0) % Reese Test Pos Pos A-a O2 Difference 594.0 554.0 mm/Hg Respiratory Index 10.2 6.5 Hgb O2 Saturation 88.4 L 94.3 L (95.0-98.0) % Mechanical Rate 14 FiO2 100.0 100.0 % Tidal Volume 450 450 PEEP 8 8 Sodium 133 (132-148) mmol/L Potassium 4.6 (3.6-5.2) mmol/L Chloride 98 (98-107) mmol/L Carbon Dioxide 30 (22-30) mmol/L Anion Gap 10 (10-20) BUN 10 (7-17) mg/dL Creatinine 0.7 (0.7-1.2) MG/DL Est GFR ( Amer) > 60 Est GFR (Non-Af Amer) > 60 Random Glucose 73 (65-105) mg/dL Calcium 7.6 L (8.6-10.4) mg/dl Phosphorus 3.9 (2.5-4.5) mg/dL Magnesium 1.6 (1.6-2.3) mg/dL Total Bilirubin 0.4 (0.2-1.3) mg/dL AST 17 (14-36) U/L ALT 29 (9-52) U/L Alkaline Phosphatase 118 (38-126) U/L Total Protein 5.2 L (6.3-8.3) g/dL Albumin 2.3 L (3.5-5.0) g/dL Globulin 3.0 (2.2-3.9) gm/dL Albumin/Globulin Ratio 0.8 L (1.0-2.1) 11/17/16 Range/Units 20:49 WBC (4.8-10.8) K/uL RBC (3.80-5.20) Mil/uL Hgb (11.0-16.0) g/dL Hct (34.0-47.0) % MCV (81.0-99.0) fL MCH (27.0-31.0) pg MCHC (33.0-37.0) g/dL RDW (11.5-14.5) % Plt Count (130-400) K/uL MPV (7.2-11.7) fL Neut % (Auto) (50.0-75.0) % Lymph % (Auto) (20.0-40.0) % [place] % (Auto) (0.0-10.0) % Eos % (Auto) (0.0-4.0) % Baso % (Auto) (0.0-2.0) % Neut # (1.8-7.0) K/uL Lymph # (1.0-4.3) K/uL [place] # (0.0-0.8) K/uL Eos # (0.0-0.7) K/uL Baso # (0.0-0.2) K/uL Puncture Site pCO2 (35-45) mm/Hg pO2 (80-100) mm/Hg HCO3 (21-28) mmol/L ABG pH (7.35-7.45) ABG Total CO2 (22-28) mmol/L ABG O2 Saturation (95-98) % ABG Base Excess (-2.0-3.0) mmol/L ABG Hemoglobin (11.7-17.4) g/dL ABG Carboxyhemoglobin (0.5-1.5) % POC ABG HHb (Measured) (0.0-5.0) % ABG Methemoglobin (0.0-3.0) % Reese Test A-a O2 Difference mm/Hg Respiratory Index Hgb O2 Saturation (95.0-98.0) % Mechanical Rate FiO2 % Tidal Volume PEEP Sodium 131 L (132-148) mmol/L Potassium 5.0 (3.6-5.2) mmol/L Chloride 99 (98-107) mmol/L Carbon Dioxide 28 (22-30) mmol/L Anion Gap 10 (10-20) BUN 11 (7-17) mg/dL Creatinine 0.6 L (0.7-1.2) MG/DL Est GFR ( Amer) > 60 Est GFR (Non-Af Amer) > 60 Random Glucose 99 (65-105) mg/dL Calcium 7.8 L (8.6-10.4) mg/dl Phosphorus (2.5-4.5) mg/dL Magnesium (1.6-2.3) mg/dL Total Bilirubin (0.2-1.3) mg/dL AST (14-36) U/L ALT (9-52) U/L Alkaline Phosphatase (38-126) U/L Total Protein (6.3-8.3) g/dL Albumin (3.5-5.0) g/dL Globulin (2.2-3.9) gm/dL Albumin/Globulin Ratio (1.0-2.1) Laboratory Results - last 24 hr 11/17/16 11/17/16 11/18/16 20:49 21:10 05:14 WBC RBC Hgb Hct MCV MCH MCHC RDW Plt Count MPV Neut % (Auto) Lymph % (Auto) [place] % (Auto) Eos % (Auto) Baso % (Auto) Neut # Lymph # [place] # Eos # Baso # Puncture Site Rra Rr pCO2 59 H 49 H pO2 85 58 L HCO3 27.5 28.6 H ABG pH 7.32 L 7.40 ABG Total CO2 32.2 H 31.9 H ABG O2 Saturation 97.3 91.5 L ABG Base Excess 3.4 H 4.9 H ABG Hemoglobin 9.2 L 8.9 L ABG Carboxyhemoglobin 2.0 H 2.3 H POC ABG HHb (Measured) 2.6 8.2 H ABG Methemoglobin 1.1 1.1 Reese Test Pos Pos A-a O2 Difference 554.0 594.0 Respiratory Index 6.5 10.2 Hgb O2 Saturation 94.3 L 88.4 L Mechanical Rate 14 FiO2 100.0 100.0 Tidal Volume 450 450 PEEP 8 8 Sodium 131 L Potassium 5.0 Chloride 99 Carbon Dioxide 28 Anion Gap 10 BUN 11 Creatinine 0.6 L Est GFR ( Amer) > 60 Est GFR (Non-Af Amer) > 60 Random Glucose 99 Calcium 7.8 L Phosphorus Magnesium Total Bilirubin AST ALT Alkaline Phosphatase Total Protein Albumin Globulin Albumin/Globulin Ratio 11/18/16 06:31 WBC 10.6 RBC 3.13 L Hgb 9.2 L Hct 28.5 L MCV 91.1 MCH 29.3 MCHC 32.2 L RDW 16.0 H Plt Count 346 MPV 7.2 Neut % (Auto) 85.4 H Lymph % (Auto) 10.6 L [place] % (Auto) 3.8 Eos % (Auto) 0.0 Baso % (Auto) 0.2 Neut # 9.0 H Lymph # 1.1 [place] # 0.4 Eos # 0.0 Baso # 0.0 Puncture Site pCO2 pO2 HCO3 ABG pH ABG Total CO2 ABG O2 Saturation ABG Base Excess ABG Hemoglobin ABG Carboxyhemoglobin POC ABG HHb (Measured) ABG Methemoglobin Reese Test A-a O2 Difference Respiratory Index Hgb O2 Saturation Mechanical Rate FiO2 Tidal Volume PEEP Sodium 133 Potassium 4.6 Chloride 98 Carbon Dioxide 30 Anion Gap 10 BUN 10 Creatinine 0.7 Est GFR ( Amer) > 60 Est GFR (Non-Af Amer) > 60 Random Glucose 73 Calcium 7.6 L Phosphorus 3.9 Magnesium 1.6 Total Bilirubin 0.4 AST 17 ALT 29 Alkaline Phosphatase 118 Total Protein 5.2 L Albumin 2.3 L Globulin 3.0 Albumin/Globulin Ratio 0.8 L Review of Systems - Review of Systems Systems not reviewed;Unavailable: Intubated Critical Care Progress Note - Ventilator Checklist Head of Bed 30 Degrees: Yes Daily Sedation Vacation: Yes Daily Assessment of Readiness to Learn: Yes Daily Spontaneous Breathing Trial: Yes PUD Prophalyxis: Yes DVT Prophylaxis: Yes Oral Care with Chlorhexidine Gluconate {CHG}: Yes - Vent Settings MODE:: PRVC TIDAL VOLUME:: 450 RESP RATE:: 14 FIO2:: 100 PEEP:: 8 - Extremities/Vascular Does the Patient have a Central Venous Catheter?: Yes Insertion Site: Internal Jugular Vein Does the Patient need a Central Venous Catheter?: Yes (vascular access) Does the Patient have a Mishra Catheter?: Yes Does the Patient need a Mishra Catheter?: Yes Catheter Insertion Criteria: Need for accurate measurement of output in critically ill patient - Prophylaxis GI Prophylaxis GI: Pepsid - Prophylaxis DVT Prophylaxis DVT: Lovenox - Nutrition Nutrition: Nutrition Category Date Time Status NPO Diet [DIET] Diets 11/16/16 Dinner Active Assessment/Plan - Assessment and Plan (Free Text) Assessment: 51F POD#1 s/p RLL wedge resection, intubated/sedated, continuing to require mech vent. Plan: Neuro Awake Alert Sedated- Propofol Cont home meds: Zoloft, Xanax, Abilify, Keppra Seizure precautions Monitor CVS Stable ASA- held Plavix held Monitor Pulm Intubated ON mech vent protective lung protocol Duonebs SOlu-medrol CXR - diffuse consolidative changes throughout both lungs w/Bibasilar airspace opacities. Small R pleural effusion. Pulm following Nephro Mg 1.6 Supplemented replaced Spironolactone- held Monitor GI No abdominal pain Distention improving OGT in place Tube feeds restarted Supplements Probiotic Zofran NS@50 Colace Morphine Dilaudid Hepatobiliary surgery following Gen surg following- SBO mgmt as per surgery Mishra in place MOnitor UOP Heme Hgb 9.2 from 8.9 Hct 28.5 from 26.9 Monitor Endo Sugars WNL Monitor MSK Monitor for skin break down ID Repeat Urine cx - yeast sp No leukocytosis Afebrile over last 24H Bactrim - held Cipro Tylenol PRN ID following- ordered multiple labs/cultures etc for tissue specimen GI/DVT ppx Pepcid Lovenox Dispo: Continue ICU care On mech vent DW attending - Date & Time Date: 11/18/16 Time: 07:00 <Hunter Garham - Last Filed: 11/18/16 18:24> CCU Objective - Vital Signs / Intake & Output Vital Signs (Last 4 hours): Vital Signs Temp Pulse Resp BP Pulse Ox 11/18/16 16:00 97 F L 11/18/16 15:09 95 H 22 106/62 89 L Intake and Output (Last 8hrs): Intake & Output 11/18/16 11/18/16 11/18/16 06:59 14:59 22:59 Intake Total 780 570 176 Output Total 1425 920 250 Balance -645 -350 -74 Weight 154 lb 5.177 oz Intake: Intake, IV Amount 630 440 116 Right Medial Port 30 40 16 Internal Jugular Right Distal Port 600 400 100 Internal Jugular Oral 150 50 Tube Feeding 80 60 Output: Chest Tube Drainage 100 20 0 Right Mid-Axillary Chest 100 20 0 Gastric Amount 250 0 Stomach 250 0 Urine 1075 900 250 Urethral (Mishra) 1075 900 250 - Medications Active Medications: Active Medications Generic Name Dose Route Start Last Admin Trade Name Freq PRN Reason Stop Dose Admin Acetaminophen 650 mg 11/08/16 20:26 Tylenol 325mg Tab PO Q6 PRN Fever >100.4 F Alprazolam 0.5 mg 11/17/16 20:23 Xanax PO Q8H PRN Anxiety Aripiprazole 5 mg 11/07/16 10:00 11/18/16 09:30 Abilify PO 5 mg DAILY BALBINA Administration Aspirin 81 mg 11/07/16 10:00 11/16/16 09:49 Aspirin Chewable PO 81 mg DAILY BALBINA Administration Clopidogrel Bisulfate 75 mg 11/07/16 10:00 11/08/16 10:24 Plavix PO 75 mg DAILY BAL[place]INA Administration Docusate Sodium 100 mg 11/16/16 10:45 11/18/16 09:31 Colace PO 100 mg DAILY BALBINA Administration Enoxaparin Sodium 40 mg 11/07/16 10:00 11/18/16 09:31 Lovenox SC 40 mg DAILY BALBINA Administration Famotidine 20 mg 11/07/16 10:00 11/17/16 10:00 Pepcid PO Not Given BID BALBINA Famotidine 20 mg 11/17/16 10:15 11/18/16 17:17 Pepcid IVP 20 mg BID BAL[place]INA Administration Hydromorphone HCl 1 mg 11/17/16 22:34 11/18/16 17:17 Dilaudid IVP 1 mg Q3H PRN Administration Pain, severe (8-10) Trimethoprim/Sulfamethoxazole 250 mls @ 200 mls/hr 11/11/16 03:30 11/17/16 20: 58 240 mg/ Dextrose IVPB 200 mls/hr Q8H BALBINA Administration Ciprofloxacin 200 mls @ 133 mls/hr 11/14/16 14:00 11/18/16 14:07 Cipro 400mg/200ml Dsw IVPB 133 mls/hr Q12H BAL[place] Administration Propofol 100 mls @ 2.01 mls/hr 11/17/16 20:19 11/18/16 17:25 Diprivan IV 3.216 mls/hr .Q24H PRN Administration TITRATE PER MD ORDER Protocol 5 MCG/KG/MIN Sodium Chloride 1,000 mls @ 50 mls/hr 11/17/16 21:00 11/18/16 17:19 Sodium Chloride 0.9% IV 50 mls/hr .Q20H BAL[place] Administration Levetiracetam 500 mg 11/09/16 18:00 11/18/16 17:17 Keppra PO 500 mg BID BALBINA Administration Methylprednisolone 40 mg 11/09/16 14:00 11/18/16 14:06 Solu-Medrol IV 40 mg Q8 BAL[place]INA Administration Morphine Sulfate 4 mg 11/13/16 22:23 11/17/16 21:19 Morphine Sulfate IVP 4 mg Q4 PRN Administration Pain, moderate (4-7) Ondansetron HCl 4 mg 11/13/16 19:14 11/16/16 16:10 Zofran Inj IVP 4 mg Q4H PRN Administration Nausea/Vomiting Saccharomyces Boulardii 250 mg 11/11/16 12:30 11/18/16 09:31 Florastor PO 250 mg DAILY BALBINA Administration Sertraline HCl 100 mg 11/07/16 10:00 11/18/16 09:30 Zoloft PO 100 mg DAILY BAL[place] Administration Spironolactone 25 mg 11/15/16 17:15 Aldactone PO QD7 BALBINA - Patient Studies Lab Studies: Microbiology Studies 11/16/16 Unknown Urine Culture - Final Urine,Clean Catch Yeast Species Lab Studies 11/18/16 11/18/16 11/17/16 Range/Units 06:31 05:14 21:10 WBC 10.6 (4.8-10.8) K/uL RBC 3.13 L (3.80-5.20) Mil/uL Hgb 9.2 L (11.0-16.0) g/dL Hct 28.5 L (34.0-47.0) % MCV 91.1 (81.0-99.0) fL MCH 29.3 (27.0-31.0) pg MCHC 32.2 L (33.0-37.0) g/dL RDW 16.0 H (11.5-14.5) % Plt Count 346 (130-400) K/uL MPV 7.2 (7.2-11.7) fL Neut % (Auto) 85.4 H (50.0-75.0) % Lymph % (Auto) 10.6 L (20.0-40.0) % [place] % (Auto) 3.8 (0.0-10.0) % Eos % (Auto) 0.0 (0.0-4.0) % Baso % (Auto) 0.2 (0.0-2.0) % Neut # 9.0 H (1.8-7.0) K/uL Lymph # 1.1 (1.0-4.3) K/uL [place] # 0.4 (0.0-0.8) K/uL Eos # 0.0 (0.0-0.7) K/uL Baso # 0.0 (0.0-0.2) K/uL Puncture Site Rr Rra pCO2 49 H 59 H (35-45) mm/Hg pO2 58 L 85 (80-100) mm/Hg HCO3 28.6 H 27.5 (21-28) mmol/L ABG pH 7.40 7.32 L (7.35-7.45) ABG Total CO2 31.9 H 32.2 H (22-28) mmol/L ABG O2 Saturation 91.5 L 97.3 (95-98) % ABG Base Excess 4.9 H 3.4 H (-2.0-3.0) mmol/L ABG Hemoglobin 8.9 L 9.2 L (11.7-17.4) g/dL ABG Carboxyhemoglobin 2.3 H 2.0 H (0.5-1.5) % POC ABG HHb (Measured) 8.2 H 2.6 (0.0-5.0) % ABG Methemoglobin 1.1 1.1 (0.0-3.0) % Reese Test Pos Pos A-a O2 Difference 594.0 554.0 mm/Hg Respiratory Index 10.2 6.5 Hgb O2 Saturation 88.4 L 94.3 L (95.0-98.0) % Mechanical Rate 14 FiO2 100.0 100.0 % Tidal Volume 450 450 PEEP 8 8 Sodium 133 (132-148) mmol/L Potassium 4.6 (3.6-5.2) mmol/L Chloride 98 (98-107) mmol/L Carbon Dioxide 30 (22-30) mmol/L Anion Gap 10 (10-20) BUN 10 (7-17) mg/dL Creatinine 0.7 (0.7-1.2) MG/DL Est GFR ( Amer) > 60 Est GFR (Non-Af Amer) > 60 Random Glucose 73 (65-105) mg/dL Calcium 7.6 L (8.6-10.4) mg/dl Phosphorus 3.9 (2.5-4.5) mg/dL Magnesium 1.6 (1.6-2.3) mg/dL Total Bilirubin 0.4 (0.2-1.3) mg/dL AST 17 (14-36) U/L ALT 29 (9-52) U/L Alkaline Phosphatase 118 (38-126) U/L Total Protein 5.2 L (6.3-8.3) g/dL Albumin 2.3 L (3.5-5.0) g/dL Globulin 3.0 (2.2-3.9) gm/dL Albumin/Globulin Ratio 0.8 L (1.0-2.1) 11/17/16 Range/Units 20:49 WBC (4.8-10.8) K/uL RBC (3.80-5.20) Mil/uL Hgb (11.0-16.0) g/dL Hct (34.0-47.0) % MCV (81.0-99.0) fL MCH (27.0-31.0) pg MCHC (33.0-37.0) g/dL RDW (11.5-14.5) % Plt Count (130-400) K/uL MPV (7.2-11.7) fL Neut % (Auto) (50.0-75.0) % Lymph % (Auto) (20.0-40.0) % [place] % (Auto) (0.0-10.0) % Eos % (Auto) (0.0-4.0) % Baso % (Auto) (0.0-2.0) % Neut # (1.8-7.0) K/uL Lymph # (1.0-4.3) K/uL [place] # (0.0-0.8) K/uL Eos # (0.0-0.7) K/uL Baso # (0.0-0.2) K/uL Puncture Site pCO2 (35-45) mm/Hg pO2 (80-100) mm/Hg HCO3 (21-28) mmol/L ABG pH (7.35-7.45) ABG Total CO2 (22-28) mmol/L ABG O2 Saturation (95-98) % ABG Base Excess (-2.0-3.0) mmol/L ABG Hemoglobin (11.7-17.4) g/dL ABG Carboxyhemoglobin (0.5-1.5) % POC ABG HHb (Measured) (0.0-5.0) % ABG Methemoglobin (0.0-3.0) % Reese Test A-a O2 Difference mm/Hg Respiratory Index Hgb O2 Saturation (95.0-98.0) % Mechanical Rate FiO2 % Tidal Volume PEEP Sodium 131 L (132-148) mmol/L Potassium 5.0 (3.6-5.2) mmol/L Chloride 99 (98-107) mmol/L Carbon Dioxide 28 (22-30) mmol/L Anion Gap 10 (10-20) BUN 11 (7-17) mg/dL Creatinine 0.6 L (0.7-1.2) MG/DL Est GFR ( Amer) > 60 Est GFR (Non-Af Amer) > 60 Random Glucose 99 (65-105) mg/dL Calcium 7.8 L (8.6-10.4) mg/dl Phosphorus (2.5-4.5) mg/dL Magnesium (1.6-2.3) mg/dL Total Bilirubin (0.2-1.3) mg/dL AST (14-36) U/L ALT (9-52) U/L Alkaline Phosphatase (38-126) U/L Total Protein (6.3-8.3) g/dL Albumin (3.5-5.0) g/dL Globulin (2.2-3.9) gm/dL Albumin/Globulin Ratio (1.0-2.1) Laboratory Results - last 24 hr 11/17/16 11/17/16 11/18/16 20:49 21:10 05:14 WBC RBC Hgb Hct MCV MCH MCHC RDW Plt Count MPV Neut % (Auto) Lymph % (Auto) [place] % (Auto) Eos % (Auto) Baso % (Auto) Neut # Lymph # [place] # Eos # Baso # Puncture Site Rra Rr pCO2 59 H 49 H pO2 85 58 L HCO3 27.5 28.6 H ABG pH 7.32 L 7.40 ABG Total CO2 32.2 H 31.9 H ABG O2 Saturation 97.3 91.5 L ABG Base Excess 3.4 H 4.9 H ABG Hemoglobin 9.2 L 8.9 L ABG Carboxyhemoglobin 2.0 H 2.3 H POC ABG HHb (Measured) 2.6 8.2 H ABG Methemoglobin 1.1 1.1 Reese Test Pos Pos A-a O2 Difference 554.0 594.0 Respiratory Index 6.5 10.2 Hgb O2 Saturation 94.3 L 88.4 L Mechanical Rate 14 FiO2 100.0 100.0 Tidal Volume 450 450 PEEP 8 8 Sodium 131 L Potassium 5.0 Chloride 99 Carbon Dioxide 28 Anion Gap 10 BUN 11 Creatinine 0.6 L Est GFR ( Amer) > 60 Est GFR (Non-Af Amer) > 60 Random Glucose 99 Calcium 7.8 L Phosphorus Magnesium Total Bilirubin AST ALT Alkaline Phosphatase Total Protein Albumin Globulin Albumin/Globulin Ratio 11/18/16 06:31 WBC 10.6 RBC 3.13 L Hgb 9.2 L Hct 28.5 L MCV 91.1 MCH 29.3 MCHC 32.2 L RDW 16.0 H Plt Count 346 MPV 7.2 Neut % (Auto) 85.4 H Lymph % (Auto) 10.6 L [place] % (Auto) 3.8 Eos % (Auto) 0.0 Baso % (Auto) 0.2 Neut # 9.0 H Lymph # 1.1 [place] # 0.4 Eos # 0.0 Baso # 0.0 Puncture Site pCO2 pO2 HCO3 ABG pH ABG Total CO2 ABG O2 Saturation ABG Base Excess ABG Hemoglobin ABG Carboxyhemoglobin POC ABG HHb (Measured) ABG Methemoglobin Reese Test A-a O2 Difference Respiratory Index Hgb O2 Saturation Mechanical Rate FiO2 Tidal Volume PEEP Sodium 133 Potassium 4.6 Chloride 98 Carbon Dioxide 30 Anion Gap 10 BUN 10 Creatinine 0.7 Est GFR ( Amer) > 60 Est GFR (Non-Af Amer) > 60 Random Glucose 73 Calcium 7.6 L Phosphorus 3.9 Magnesium 1.6 Total Bilirubin 0.4 AST 17 ALT 29 Alkaline Phosphatase 118 Total Protein 5.2 L Albumin 2.3 L Globulin 3.0 Albumin/Globulin Ratio 0.8 L Critical Care Progress Note - Nutrition Nutrition: Nutrition Category Date Time Status NPO Diet [DIET] Diets 11/16/16 Dinner Active Assessment/Plan (1) Respiratory insufficiency Current Visit: Yes Status: Acute (2) Bilateral pneumonia Current Visit: No Status: Acute (3) Small bowel obstruction Current Visit: Yes Status: Acute Attending/Attestation - Attestation I have personally seen and examined this patient.: Yes I have fully participated in the care of the patient.: Yes I have reviewed all pertinent clinical information: Yes Notes (Text): 11/18/16 18:23 Patient seen and examined in the intensive care unit. Case discussed with house staff in the morning rounds. Remains intubated on ventilatory support 100% FiO2 with PEEP of 6 and saturation of 88-90%. Awake and responsive Status post lung biopsy Continue antibiotics per ID Awaiting for pathology report
--- NOTE | 2016-11-18 20:13 | OP ---
PROCEDURE DATE: 11/17/2016 PREOPERATIVE DIAGNOSES: 1. Respiratory insufficiency. 2. Interstitial lung disease. 3. History of small-bowel obstruction, status post laparoscopic lysis of adhesions. 4. Emphysema. 5. Myocardial infarction. 6. Lupus. 7. History of cerebrovascular accidents. 8. Seizure disorder. POSTOPERATIVE DIAGNOSES: 1. Respiratory insufficiency. 2. Interstitial lung disease. 3. History of small-bowel obstruction, status post laparoscopic lysis of adhesions. 4. Emphysema. 5. Myocardial infarction. 6. Lupus. 7. History of cerebrovascular accidents. 8. Seizure disorder. PROCEDURES: 1. Flexible bronchoscopy. 2. Right VATS with diagnostic wedge resection. ATTENDING SURGEON: Fabienne Chan MD CLINICAL BIOSTATISTICIAN: Chelsi Medrano DO ANESTHESIA: General with a single lumen endotracheal tube. ESTIMATED BLOOD LOSS: 10 mL. INDICATION: The patient is a 51-year-old female with multiple medical problems including COPD, depression, emphys wanda, lupus, history of cerebrovascular accident, seizure disorder, coronary artery disease, and recur rent bowel obstructions, who presented with profound dyspnea and had been intubated for up to a month and is currently on BiPAP. The treating ICU team as well as the patient's pharmacologist requested a lung biopsy to evaluate for pulmonary fibrosis. The risks and benefits of the procedure were descri bed to the patient, including prolonged air leak, AL, arrhythmia, , and ventilatory dependence. Given her tenuous respiratory status, the patient was informed that she would remain intubated posto peratively. DESCRIPTION OF PROCEDURE: The patient was placed supine on the operating room bed. It appeared that just from the transport on BiPAP, the patient profoundly desaturated into the 60s and responded after intubation. However, giv en her tenuous respiratory status, I did not think she would tolerate 1 lung ventilation and due to t he need of keeping her intubated postoperatively, I elected to perform the case with a single lumen e ndotracheal tube given that we needed a diagnostic wedge resection. Even with the single lumen tube, the patient's saturations were in the low 90s. We were able to position the patient on her side, pr epped and draped in the usual sterile fashion. We proceeded by 3 incisions. Upon entry into [facility] right pleural cavity, adhesions were noted throughout the right hemithorax. I was able to take do wn some adhesions with electrocautery, freeing up the fissure between the right upper and right lower lobe. The remaining 2 ports were inserted, adhesions were taken down. The right upper lobe inferio r edge appeared to be relatively fibrotic and difficult to staple. I was able to dissect the upper e dge of the right lower lobe free and 2 firings with a green FREYA stapler of thick tissue were done to perform a diagnostic wedge resection of the upper aspect of the right lower lobe. A part of the spec imen was submitted for culture and the remainder was submitted for histology. Surgicel was applied t o the staple line. A single 28 [place] was placed and directed to the apex of the right chest. The c hest tube was secured to the patient's skin with 0 silk suture. A 30 mL of 0.25% Marcaine was used t o infiltrate the incisions. All instruments and sponge counts were correct at the completion of the case. The patient tolerated the procedure well despite using apnea at 30-45 second intervals. She r emained intubated and taken in satisfactory condition to the intensive care unit. Fabienne Chan MD cc: [id number] TT: 11/18/2016 20:12:53 hn
--- NOTE | 2016-11-18 22:07 | CP.PCM.PN ---
Subjective - Date & Time of Evaluation Date of Evaluation: 11/18/16 Time of Evaluation: 07:00 - Subjective Subjective: Surgery: Dr. Chan Pt seen and examined. No acute overnight events. Pt is s/p VATS with wedge resection & CT placement. Even though pt is intubated she is awake and alert and able to communicate. She denies pain. No F/C overnight. Objective - Vital Signs/Intake and Output Vital Signs (last 24 hours): Temp Pulse Resp BP Pulse Ox 97 F L 94 H 25 H 112/65 98 11/18/16 16:00 11/18/16 19:09 11/18/16 19:09 11/18/16 19:09 11/18/16 19:09 Intake and Output: 11/18/16 11/19/16 18:59 06:59 Intake Total 922 88 Output Total 1370 80 Balance -448 8 - Medications Medications: Current Medications Acetaminophen (Tylenol 325mg Tab) 650 mg PO Q6 PRN PRN Reason: Fever >100.4 F Alprazolam (Xanax) 0.5 mg PO Q8H PRN PRN Reason: Anxiety Aripiprazole (Abilify) 5 mg PO DAILY [facility] Last Admin: 11/18/16 09:30 Dose: 5 mg Aspirin (Aspirin Chewable) 81 mg PO DAILY [facility] Last Admin: 11/16/16 09:49 Dose: 81 mg Clopidogrel Bisulfate (Plavix) 75 mg PO DAILY [facility] Last Admin: 11/08/16 10:24 Dose: 75 mg Docusate Sodium (Colace) 100 mg PO DAILY [facility] Last Admin: 11/18/16 09:31 Dose: 100 mg Enoxaparin Sodium (Lovenox) 40 mg SC DAILY [facility] Last Admin: 11/18/16 09:31 Dose: 40 mg Famotidine (Pepcid) 20 mg PO BID [facility] Last Admin: 11/17/16 10:00 Dose: Not Given Famotidine (Pepcid) 20 mg IVP BID [facility] Last Admin: 11/18/16 17:17 Dose: 20 mg Hydromorphone HCl (Dilaudid) 1 mg IVP Q3H PRN PRN Reason: Pain, severe (8-10) Last Admin: 11/18/16 20:12 Dose: 1 mg Trimethoprim/Sulfamethoxazole (240 mg/ Dextrose) 250 mls @ 200 mls/hr IVPB Q8H [facility] Last Admin: 11/17/16 20:58 Dose: 200 mls/hr Ciprofloxacin (Cipro 400mg/200ml Dsw) 200 mls @ 133 mls/hr IVPB Q12H [facility] Last Admin: 11/18/16 14:07 Dose: 133 mls/hr Propofol (Diprivan) 100 mls @ 2.01 mls/hr IV .Q24H PRN; Protocol; 5 MCG/KG/MIN PRN Reason: TITRATE PER MD ORDER Last Admin: 11/18/16 17:25 Dose: 3.216 mls/hr Sodium Chloride (Sodium Chloride 0.9%) 1,000 mls @ 50 mls/hr IV .Q20H [facility] Last Admin: 11/18/16 17:19 Dose: 50 mls/hr Levetiracetam (Keppra) 500 mg PO BID [facility] Last Admin: 11/18/16 17:17 Dose: 500 mg Methylprednisolone (Solu-Medrol) 40 mg IV Q8 [facility] Last Admin: 11/18/16 14:06 Dose: 40 mg Morphine Sulfate (Morphine Sulfate) 4 mg IVP Q4 PRN PRN Reason: Pain, moderate (4-7) Last Admin: 11/17/16 21:19 Dose: 4 mg Ondansetron HCl (Zofran Inj) 4 mg IVP Q4H PRN PRN Reason: Nausea/Vomiting Last Admin: 11/16/16 16:10 Dose: 4 mg Saccharomyces Boulardii (Florastor) 250 mg PO DAILY [facility] Last Admin: 11/18/16 09:31 Dose: 250 mg Sertraline HCl (Zoloft) 100 mg PO DAILY [facility] Last Admin: 11/18/16 09:30 Dose: 100 mg Spironolactone (Aldactone) 25 mg PO QD7 [facility] - Labs Labs: 11/18/16 06:31 11/18/16 06:31 PT 12.3 SECONDS (9.7-12.2) H 11/16/16 06:24 INR 1.1 11/16/16 06:24 APTT 32 SECONDS (21-34) 11/16/16 06:24 - Constitutional Appears: No Acute Distress - Eye Exam Eye Exam: Normal appearance - ENT Exam Additional comments: ETT in place - Respiratory Exam Additional comments: Mechanical ventilation; CT in place with 110cc/24Hrs output - Cardiovascular Exam Cardiovascular Exam: Tachycardia - GI/Abdominal Exam GI & Abdominal Exam: Soft - Neurological Exam Neurological Exam: Alert, Awake - Skin Skin Exam: Dry, Warm Assessment and Plan - Assessment and Plan (Free Text) Assessment: 51F s/p R VATS with wedge resection & CT placement Plan: - Cont CT on suction; monitor output - Daily CXR - f/u pathology - d/w Dr. Dustin Reina, PGY-2 Surgery
[2016-11-18] MEDS: Morphine 4 MG/ML VIAL IVP PRN (22:50)
[2016-11-19] MEDS: Ciprofloxacin 400mg/200ml D5W 200 ML IVPB SCH ×2 (01:16→14:23)
[2016-11-19] MEDS: Albuterol-Ipratrop 3 mg / 0.5 (3 ml) UD INH SCH ×5 (01:47→19:31)
[2016-11-19] MEDS: HYDROmorphone 1 mg/ml ISec IVP PRN ×4 (02:07→11:30)
[2016-11-19] MEDS: Morphine 4 MG/ML VIAL IVP PRN (05:10)
[2016-11-19 05:44] LABS: ABG ALLEN TEST POS; ABG MECHANICAL RATE 14; ARTERIAL BLOOD HGB O2 SAT 91.3 % (95.0-98.0); ATERIAL BLOOD GAS PEEP 6; CARBOXYHEMOGLOBIN 2.1 % (0.5-1.5); DRAW SITE RR; HHB 5.9 % (0.0-5.0); METHEMOGLOBIN 0.7 % (0.0-3.0)
[2016-11-19 06:43] LABS: BASO % 0.1 % (0.0-2.0); EOS % 0.1 % (0.0-4.0); HEMATOCRIT 25.2 % (34.0-47.0); LYMPH # 1.3 K/uL (1.0-4.3); LYMPH % 14.1 % (20.0-40.0); MEAN CELL VOLUME 90.5 fL (81.0-99.0); MEAN CORPUSCULAR HEMOGLOBIN 30.3 pg (27.0-31.0); MEAN CORPUSCULAR HGB CONC 33.5 g/dL (33.0-37.0); MEAN PLATELET VOLUME 7.3 fL (7.2-11.7); MONO # 0.6 K/uL (0.0-0.8); RED CELL DISTRIBUTION WIDTH 16.1 % (11.5-14.5); WHITE BLOOD COUNT 9.3 K/uL (4.8-10.8)
[2016-11-19 06:56] LABS: CHLORIDE 99 mmol/L (98-107); POTASSIUM 3.5 mmol/L (3.6-5.2); SODIUM 136 mmol/L (132-148)
[2016-11-19 06:58] LABS: BILIRUBIN,TOTAL 0.5 mg/dL (0.2-1.3); GFR AFRICAN-AMERICAN > 60
[2016-11-19 06:59] LABS: ALB/GLOB RATIO 0.7 (1.0-2.1); ALKALINE PHOSPHATASE 117 U/L (38-126); ALT/SGPT 25 U/L (9-52); AST/SGOT 16 U/L (14-36); BLOOD UREA NITROGEN 9 mg/dL (7-17); CARBON DIOXIDE 32 mmol/L (22-30); GLUCOSE,RANDOM 84 mg/dL (65-105); PHOSPHOROUS 3.7 mg/dL (2.5-4.5)
[2016-11-19 07:00] LABS: CALCIUM 7.4 mg/dl (8.6-10.4); MAGNESIUM 1.6 mg/dL (1.6-2.3)
[2016-11-19] MEDS ORDERED: Potassium Chloride 20 mEq/15 ml LIQ UD PO ONE ×2 (08:15→10:30)
--- NOTE | 2016-11-19 08:41 | CP.PCM.PN ---
Subjective - Date & Time of Evaluation Date of Evaluation: 11/19/16 Time of Evaluation: 08:32 - Subjective Subjective: Cardiothoracic Surgery Note for Dr. Chan This 51F was seen and examined this AM at bedside. Overnight the patient was reintubated. The patient is currently awake and alert on a propofol drip, no pressors at this time. Pt remains tachycardic between 100-110bpm, BP 116/63, Saturating 86-91% on 100%O2 6 PEEP, 450ml. Her CT output 110CC serosanguinous over 24hours with 210cc in the tank. Dressings clean dry and intact, and changed this AM at bedside. Objective - Vital Signs/Intake and Output Vital Signs (last 24 hours): Temp Pulse Resp BP Pulse Ox 97 F L 108 H 25 H 106/59 L 91 L 11/18/16 16:00 11/19/16 05:09 11/19/16 05:09 11/19/16 05:09 11/19/16 05:09 Intake and Output: 11/19/16 11/19/16 06:59 18:59 Intake Total 88 Output Total 80 Balance 8 - Medications Medications: Current Medications Acetaminophen (Tylenol 325mg Tab) 650 mg PO Q6 PRN PRN Reason: Fever >100.4 F Albuterol/Ipratropium (Duoneb 3 Mg/0.5 Mg (3 Ml) Ud) 3 ml INH RQ6 [facility] Last Admin: 11/19/16 07:57 Dose: 3 ml Alprazolam (Xanax) 0.5 mg PO Q8H PRN PRN Reason: Anxiety Last Admin: 11/19/16 05:12 Dose: 0.5 mg Aripiprazole (Abilify) 5 mg PO DAILY [facility] Last Admin: 11/18/16 09:30 Dose: 5 mg Aspirin (Aspirin Chewable) 81 mg PO DAILY [facility] Last Admin: 11/16/16 09:49 Dose: 81 mg Clopidogrel Bisulfate (Plavix) 75 mg PO DAILY [facility] Last Admin: 11/08/16 10:24 Dose: 75 mg Docusate Sodium (Colace) 100 mg PO DAILY [facility] Last Admin: 11/18/16 09:31 Dose: 100 mg Enoxaparin Sodium (Lovenox) 40 mg SC DAILY [facility] Last Admin: 11/18/16 09:31 Dose: 40 mg Famotidine (Pepcid) 20 mg PO BID [facility] Last Admin: 11/17/16 10:00 Dose: Not Given Famotidine (Pepcid) 20 mg IVP BID [facility] Last Admin: 11/18/16 17:17 Dose: 20 mg Hydromorphone HCl (Dilaudid) 1 mg IVP Q3H PRN PRN Reason: Pain, severe (8-10) Last Admin: 11/19/16 04:59 Dose: 1 mg Trimethoprim/Sulfamethoxazole (240 mg/ Dextrose) 250 mls @ 200 mls/hr IVPB Q8H [facility] Last Admin: 11/17/16 20:58 Dose: 200 mls/hr Ciprofloxacin (Cipro 400mg/200ml Dsw) 200 mls @ 133 mls/hr IVPB Q12H [facility] Last Admin: 11/19/16 01:16 Dose: 133 mls/hr Propofol (Diprivan) 100 mls @ 2.01 mls/hr IV .Q24H PRN; Protocol; 5 MCG/KG/MIN PRN Reason: TITRATE PER MD ORDER Last Admin: 11/19/16 07:58 Dose: 3.216 mls/hr Sodium Chloride (Sodium Chloride 0.9%) 1,000 mls @ 50 mls/hr IV .Q20H [facility] Last Admin: 11/18/16 17:19 Dose: 50 mls/hr Levetiracetam (Keppra) 500 mg PO BID [facility] Last Admin: 11/18/16 17:17 Dose: 500 mg Methylprednisolone (Solu-Medrol) 40 mg IV Q8 [facility] Last Admin: 11/19/16 06:00 Dose: 40 mg Morphine Sulfate (Morphine Sulfate) 4 mg IVP Q4 PRN PRN Reason: Pain, moderate (4-7) Last Admin: 11/19/16 05:10 Dose: 4 mg Ondansetron HCl (Zofran Inj) 4 mg IVP Q4H PRN PRN Reason: Nausea/Vomiting Last Admin: 11/16/16 16:10 Dose: 4 mg Saccharomyces Boulardii (Florastor) 250 mg PO DAILY [facility] Last Admin: 11/18/16 09:31 Dose: 250 mg Sertraline HCl (Zoloft) 100 mg PO DAILY [facility] Last Admin: 11/18/16 09:30 Dose: 100 mg Spironolactone (Aldactone) 25 mg PO QD7 [facility] - Labs Labs: 11/19/16 06:31 11/19/16 06:31 PT 12.3 SECONDS (9.7-12.2) H 11/16/16 06:24 INR 1.1 11/16/16 06:24 APTT 32 SECONDS (21-34) 11/16/16 06:24 - Constitutional Appears: No Acute Distress - Head Exam Head Exam: ATRAUMATIC, NORMOCEPHALIC - Eye Exam Eye Exam: EOMI, Normal appearance - ENT Exam ENT Exam: Mucous Membranes Moist, Normal Exam - Respiratory Exam Additional comments: Intubated - Cardiovascular Exam Cardiovascular Exam: +S1, +S2 - GI/Abdominal Exam GI & Abdominal Exam: Soft. absent: Firm, Guarding, Rigid, Tenderness - Neurological Exam Neurological Exam: Alert, Awake - Psychiatric Exam Additional comments: Unable to assess Assessment and Plan - Assessment and Plan (Free Text) Assessment: This is a 51F with pulmonary fibrosis s/p R VATS with wedge resection & CT placement Plan: - Cont CT on suction; monitor output - Daily CXR (CXR today shows improvement from yesterday) - f/u pathology - d/w Dr. Dustin Gonzales PGY-1
--- NOTE | 2016-11-19 10:01 | RAD ---
HISTORY: intubated COMPARISON: 11/18/2016 FINDINGS: LUNGS: Lines and tubes in stable position. Persistent dense confluent airspace consolidative changes in both lungs. PLEURA: As above. CARDIOVASCULAR: Normal. OSSEOUS STRUCTURES: No significant abnormalities. VISUALIZED UPPER ABDOMEN: Normal. OTHER FINDINGS: None. IMPRESSION: No significant interval change.
[2016-11-19] MEDS ORDERED: Albuterol-Ipratrop 3 mg / 0.5 (3 ml) UD INH STA ×2 (10:40→16:57)
[2016-11-19] MEDS: Enoxaparin 40 mg Syringe SC SCH (10:49)
[2016-11-19] MEDS: levETIRAcetam 100 mg/ml (5ml) Oral Syringe PO SCH ×2 (10:49→17:48)
[2016-11-19] MEDS: Saccharomyces Boulardi 250 mg Cap PO SCH (10:54)
--- NOTE | 2016-11-19 11:05 | CP.PCM.PN ---
Subjective - Date & Time of Evaluation Date of Evaluation: 11/19/16 Time of Evaluation: 07:30 - Subjective Subjective: patient seen and examined in the intensive care unit. Remains intubated on ventilatory support, FiO2 100% with PEEP of 6 and saturation 92-94% Awake and responsive Afebrile Objective - Vital Signs/Intake and Output Vital Signs (last 24 hours): Temp Pulse Resp BP Pulse Ox 97 F L 108 H 25 H 106/59 L 91 L 11/18/16 16:00 11/19/16 05:09 11/19/16 05:09 11/19/16 05:09 11/19/16 05:09 Intake and Output: 11/19/16 11/19/16 06:59 18:59 Intake Total 88 Output Total 80 Balance 8 - Medications Medications: Current Medications Acetaminophen (Tylenol 325mg Tab) 650 mg PO Q6 PRN PRN Reason: Fever >100.4 F Albuterol/Ipratropium (Duoneb 3 Mg/0.5 Mg (3 Ml) Ud) 3 ml INH RQ6 [facility] Last Admin: 11/19/16 07:57 Dose: 3 ml Alprazolam (Xanax) 0.5 mg PO Q8H PRN PRN Reason: Anxiety Last Admin: 11/19/16 05:12 Dose: 0.5 mg Alprazolam (Xanax) 2 mg PO HS [facility] Aspirin (Aspirin Chewable) 81 mg PO DAILY [facility] Last Admin: 11/16/16 09:49 Dose: 81 mg Clopidogrel Bisulfate (Plavix) 75 mg PO DAILY [facility] Last Admin: 11/08/16 10:24 Dose: 75 mg Enoxaparin Sodium (Lovenox) 40 mg SC DAILY [facility] Last Admin: 11/19/16 10:49 Dose: 40 mg Famotidine (Pepcid) 20 mg IVP BID [facility] Last Admin: 11/19/16 10:50 Dose: 20 mg Hydromorphone HCl (Dilaudid) 1 mg IVP Q3H PRN PRN Reason: Pain, severe (8-10) Last Admin: 11/19/16 04:59 Dose: 1 mg Ciprofloxacin (Cipro 400mg/200ml Dsw) 200 mls @ 133 mls/hr IVPB Q12H [facility] Last Admin: 11/19/16 01:16 Dose: 133 mls/hr Propofol (Diprivan) 100 mls @ 2.01 mls/hr IV .Q24H PRN; Protocol; 5 MCG/KG/MIN PRN Reason: TITRATE PER MD ORDER Last Admin: 11/19/16 07:58 Dose: 3.216 mls/hr Magnesium Sulfate/Dextrose (Magnesium Sulfate 1 Gm/100 Ml D5w) 100 mls @ 100 mls/hr IVPB Q2 [facility] Stop: 11/19/16 14:59 Fentanyl Citrate 2,500 mcg/ (Sodium Chloride) 250 mls @ 70 mls/hr IV .Q3H35M [facility]; 10 MCG/KG/HR PRN Reason: Protocol Lactulose (Enulose) 20 gm PO Q4H [facility] Last Admin: 11/19/16 10:49 Dose: 20 gm Levetiracetam (Keppra) 500 mg PO BID [facility] Last Admin: 11/19/16 10:49 Dose: 500 mg Methylprednisolone (Solu-Medrol) 40 mg IV Q8 [facility] Last Admin: 11/19/16 06:00 Dose: 40 mg - Labs Labs: 11/19/16 06:31 11/19/16 06:31 PT 12.3 SECONDS (9.7-12.2) H 11/16/16 06:24 INR 1.1 11/16/16 06:24 APTT 32 SECONDS (21-34) 11/16/16 06:24 - Head Exam Head Exam: ATRAUMATIC, NORMOCEPHALIC - Eye Exam Eye Exam: Normal appearance - ENT Exam ENT Exam: Mucous Membranes Moist - Neck Exam Neck Exam: Normal Inspection - Respiratory Exam Respiratory Exam: Rales - Cardiovascular Exam Cardiovascular Exam: REGULAR RHYTHM - GI/Abdominal Exam GI & Abdominal Exam: Soft, Normal Bowel Sounds - Extremities Exam Extremities Exam: Pedal Edema Assessment and Plan (1) Respiratory insufficiency Assessment & Plan: Wean as tolerated Continue antibiotics per ID Awaiting pathology report Continue IV steroids Status: Acute (2) Bilateral pneumonia Status: Acute (3) Small bowel obstruction Status: Acute
--- NOTE | 2016-11-19 12:36 | CP.CCUPN ---
<Mariana Robison - Last Filed: 11/19/16 12:33> CCU Subjective - Physician Review Events Since Last Encounter (Free Text): 11/19/16 12:33 Continues on mech vent Subjective (Free Text): 11/10/16 12:04 Pt S & E this AM. Reports ab pain and SOB improved- on VTM. Had soft unformed BMs x 2 yesterday, 1 liquid stool today with large volume flatus. Denies N/V/F/C, chest pain. 11/11/16 12:38 Pt S & E this AM. Pt reports having 3 liquid stools yesterday, continues to require VTM 2/2 SOB, insomnia. Abdominal pain much improved, abdominal distention much improved. Denies N/V/F/C, chest pain. 11/12/16 14:26 Pt S & E this AM. Pt reports continued SOB, likes being on Bipap 2/2 less work to breathe. Ab pain improved, continues with liquid stools, now has non productive cough. 11/13/16 16:55 Pt S & E this AM. Pt continues w/SOB requiring Bipap overnight, using more Bipap vs. VTM mask, states she had insomnia overnight 2/2 SOB, needing to focus on breathing. Abdominal pain resolved. Had slight nausea yesterday with protein supplement. Had 1 liquid BM yesterday. Denies emesis, fevers, chills, chest pain. 11/16/16 13:44 P S & E this AM. Pt on BiPAP -tolerating it well. Pt admits to epigastric abdominal pain, hunger -asking for food. For OR tomorrow for bronchoscopy and wedge biopsy with Dr. Chan. 11/17/16 12:40 Pt S & E this AM. Pt stable on BiPAP confortable overnight. Continued epigastric pain but tolerating diet intermittently. No BM despite SS enema & colace. For bronchoscopy and wedge biopsy today with Dr. Chan. 11/18/16 18:07 Pt S & E this AM. Pt intubated/sedated, but alert, awake. Gesturing that her abdominal pain has resolved. 11/19/16 12:34 Pt S & E this AM. Pt intubatedl/sedated, but alert & awake. C/O chest wall pain, asking for sleep medication. Critical Care Time Spent (in minutes): 60 CCU Objective - Vital Signs / Intake & Output Vital Signs (Last 4 hours): Vital Signs Pulse Resp BP Pulse Ox 11/19/16 11:09 100 H 28 H 113/62 95 11/19/16 11:00 96 H 23 100 11/19/16 10:09 91 H 15 99/62 L 94 L 11/19/16 10:00 91 H 16 94 L 11/19/16 09:09 89 17 93/64 L 93 L 11/19/16 09:00 91 H 18 90 L Intake and Output (Last 8hrs): Intake & Output 11/18/16 11/19/16 11/19/16 22:59 06:59 14:59 Intake Total 440 252 Output Total 530 Balance -90 252 Intake: Intake, IV Amount 290 32 Right Medial Port 40 32 Internal Jugular Right Distal Port 250 Internal Jugular Oral 100 Tube Feeding 150 120 Output: Chest Tube Drainage 30 Right Mid-Axillary Chest 30 Urine 500 Urethral (Mishra) 500 - Physical Exam Head: Positive for: Atraumatic, Normocephalic Pupils: Positive for: PERRL Extroacular Muscles: Positive for: EOMI Conjunctiva: Positive for: Normal Ears: Positive for: Normal Mouth: Positive for: Moist Mucous Membranes, Other (ET & OG tubes in place) Pharnyx: Positive for: Normal Nose (External): Positive for: Atraumatic Neck: Positive for: Normal Range of Motion, Trachea Midline, Other (Right IJ (- ) erythema/drainage) Respiratory/Chest: Positive for: Good Air Exchange, Decreased Breath Sounds. Negative for: Clear to Auscultation (coarse BS b/l), Respiratory Distress, Accessory Muscle Use, Rales, Rhonchi Cardiovascular: Positive for: Normal S1, S2, Peripheal Pulses Present, Tachycardic. Negative for: Murmurs, Rub, Gallop Abdomen: Negative for: Tenderness, Distention, Normal Bowel Sounds (hypoactive) , Peritoneal Signs, Rebound, Guarding Upper Extremity: Positive for: Normal Inspection. Negative for: Cyanosis, Edema Lower Extremity: Positive for: Normal Inspection. Negative for: Edema (B/L, minimal) Neurological: Positive for: Other (intubated/sedated). Negative for: GCS=15, Speech Normal Skin: Positive for: Warm, Dry, Normal Color. Negative for: Rashes Psychiatric: Positive for: Alert - Medications Active Medications: Active Medications Generic Name Dose Route Start Last Admin Trade Name Freq PRN Reason Stop Dose Admin Acetaminophen 650 mg 11/08/16 20:26 Tylenol 325mg Tab PO Q6 PRN Fever >100.4 F Albuterol/Ipratropium 3 ml 11/19/16 02:00 11/19/16 07:57 Duoneb 3 Mg/0.5 Mg (3 Ml) Ud INH 3 ml RQ6 [facility] Administration Alprazolam 0.5 mg 11/17/16 20:23 11/19/16 05:12 Xanax PO 0.5 mg Q8H PRN Administration Anxiety Alprazolam 2 mg 11/19/16 22:00 Xanax PO HS [facility] Aspirin 81 mg 11/07/16 10:00 11/16/16 09:49 Aspirin Chewable PO 81 mg DAILY [facility] Administration Clopidogrel Bisulfate 75 mg 11/07/16 10:00 11/08/16 10:24 Plavix PO 75 mg DAILY [facility] Administration Enoxaparin Sodium 40 mg 11/07/16 10:00 11/19/16 10:49 Lovenox SC 40 mg DAILY [facility] Administration Famotidine 20 mg 11/17/16 10:15 11/19/16 10:50 Pepcid IVP 20 mg BID [facility] Administration Hydromorphone HCl 1 mg 11/17/16 22:34 11/19/16 11:30 Dilaudid IVP 1 mg Q3H PRN Administration Pain, severe (8-10) Ciprofloxacin 200 mls @ 133 mls/hr 11/14/16 14:00 11/19/16 01:16 Cipro 400mg/200ml Dsw IVPB 133 mls/hr Q12H [facility] Administration Propofol 100 mls @ 2.01 mls/hr 11/17/16 20:19 11/19/16 07:58 Diprivan IV 3.216 mls/hr .Q24H PRN Administration TITRATE PER MD ORDER Protocol 5 MCG/KG/MIN Magnesium Sulfate/Dextrose 100 mls @ 100 mls/hr 11/19/16 12:00 11/19/16 11:54 Magnesium Sulfate 1 Gm/100 Ml D5w IVPB 11/19/16 14:59 100 mls/hr Q2 [facility] Administration Fentanyl Citrate 2,500 mcg/ 250 mls @ 70 mls/hr 11/19/16 10:35 Sodium Chloride IV .Q3H35M [facility] Protocol 10 MCG/KG/HR Ketorolac Tromethamine 30 mg 11/19/16 12:00 11/19/16 11:59 Toradol IVP 30 mg Q6 [facility] Administration Lactulose 20 gm 11/19/16 10:30 11/19/16 10:49 Enulose PO 20 gm Q4H [facility] Administration Levetiracetam 500 mg 11/09/16 18:00 11/19/16 10:49 Keppra PO 500 mg BID [facility] Administration Methylprednisolone 40 mg 11/09/16 14:00 11/19/16 06:00 Solu-Medrol IV 40 mg Q8 [facility] Administration - Patient Studies Lab Studies: Microbiology Studies 11/16/16 Unknown Urine Culture - Final Urine,Clean Catch Yeast Species Lab Studies 11/19/16 11/19/16 Range/Units 06:31 05:14 WBC 9.3 (4.8-10.8) K/uL RBC 2.79 L (3.80-5.20) Mil/uL Hgb 8.4 L (11.0-16.0) g/dL Hct 25.2 L (34.0-47.0) % MCV 90.5 (81.0-99.0) fL MCH 30.3 (27.0-31.0) pg MCHC 33.5 (33.0-37.0) g/dL RDW 16.1 H (11.5-14.5) % Plt Count 305 (130-400) K/uL MPV 7.3 (7.2-11.7) fL Neut % (Auto) 79.7 H (50.0-75.0) % Lymph % (Auto) 14.1 L (20.0-40.0) % [place] % (Auto) 6.0 (0.0-10.0) % Eos % (Auto) 0.1 (0.0-4.0) % Baso % (Auto) 0.1 (0.0-2.0) % Neut # 7.4 H (1.8-7.0) K/uL Lymph # 1.3 (1.0-4.3) K/uL [place] # 0.6 (0.0-0.8) K/uL Eos # 0.0 (0.0-0.7) K/uL Baso # 0.0 (0.0-0.2) K/uL Puncture Site Rr pCO2 51 H (35-45) mm/Hg pO2 62 L (80-100) mm/Hg HCO3 32.1 H (21-28) mmol/L ABG pH 7.44 (7.35-7.45) ABG Total CO2 36.2 H (22-28) mmol/L ABG O2 Saturation 93.9 L (95-98) % ABG Base Excess 9.3 H (-2.0-3.0) mmol/L ABG Hemoglobin 9.3 L (11.7-17.4) g/dL ABG Carboxyhemoglobin 2.1 H (0.5-1.5) % POC ABG HHb (Measured) 5.9 H (0.0-5.0) % ABG Methemoglobin 0.7 (0.0-3.0) % Reese Test Pos A-a O2 Difference 587.0 mm/Hg Respiratory Index 9.5 Hgb O2 Saturation 91.3 L (95.0-98.0) % Mechanical Rate 14 FiO2 100.0 % Tidal Volume 450 PEEP 6 Sodium 136 (132-148) mmol/L Potassium 3.5 L (3.6-5.2) mmol/L Chloride 99 (98-107) mmol/L Carbon Dioxide 32 H (22-30) mmol/L Anion Gap 9 L (10-20) BUN 9 (7-17) mg/dL Creatinine 0.6 L (0.7-1.2) MG/DL Est GFR ( Amer) > 60 Est GFR (Non-Af Amer) > 60 Random Glucose 84 (65-105) mg/dL Calcium 7.4 L (8.6-10.4) mg/dl Phosphorus 3.7 (2.5-4.5) mg/dL Magnesium 1.6 (1.6-2.3) mg/dL Total Bilirubin 0.5 (0.2-1.3) mg/dL AST 16 (14-36) U/L ALT 25 (9-52) U/L Alkaline Phosphatase 117 (38-126) U/L Total Protein 5.0 L (6.3-8.3) g/dL Albumin 2.1 L (3.5-5.0) g/dL Globulin 2.9 (2.2-3.9) gm/dL Albumin/Globulin Ratio 0.7 L (1.0-2.1) Laboratory Results - last 24 hr 11/19/16 11/19/16 05:14 06:31 WBC 9.3 RBC 2.79 L Hgb 8.4 L Hct 25.2 L MCV 90.5 MCH 30.3 MCHC 33.5 RDW 16.1 H Plt Count 305 MPV 7.3 Neut % (Auto) 79.7 H Lymph % (Auto) 14.1 L [place] % (Auto) 6.0 Eos % (Auto) 0.1 Baso % (Auto) 0.1 Neut # 7.4 H Lymph # 1.3 [place] # 0.6 Eos # 0.0 Baso # 0.0 Puncture Site Rr pCO2 51 H pO2 62 L HCO3 32.1 H ABG pH 7.44 ABG Total CO2 36.2 H ABG O2 Saturation 93.9 L ABG Base Excess 9.3 H ABG Hemoglobin 9.3 L ABG Carboxyhemoglobin 2.1 H POC ABG HHb (Measured) 5.9 H ABG Methemoglobin 0.7 Reese Test Pos A-a O2 Difference 587.0 Respiratory Index 9.5 Hgb O2 Saturation 91.3 L Mechanical Rate 14 FiO2 100.0 Tidal Volume 450 PEEP 6 Sodium 136 Potassium 3.5 L Chloride 99 Carbon Dioxide 32 H Anion Gap 9 L BUN 9 Creatinine 0.6 L Est GFR ( Amer) > 60 Est GFR (Non-Af Amer) > 60 Random Glucose 84 Calcium 7.4 L Phosphorus 3.7 Magnesium 1.6 Total Bilirubin 0.5 AST 16 ALT 25 Alkaline Phosphatase 117 Total Protein 5.0 L Albumin 2.1 L Globulin 2.9 Albumin/Globulin Ratio 0.7 L Review of Systems - Review of Systems Systems not reviewed;Unavailable: Intubated Critical Care Progress Note - Ventilator Checklist Head of Bed 30 Degrees: Yes Daily Sedation Vacation: Yes Daily Assessment of Readiness to Learn: Yes Daily Spontaneous Breathing Trial: Yes PUD Prophalyxis: Yes DVT Prophylaxis: Yes - Vent Settings MODE:: PRVC TIDAL VOLUME:: 450 RESP RATE:: 14 FIO2:: 100 PEEP:: 5 - Extremities/Vascular Does the Patient have a Central Venous Catheter?: Yes Insertion Site: Internal Jugular Vein Does the Patient need a Central Venous Catheter?: Yes Does the Patient have a Mishra Catheter?: Yes Does the Patient need a Mishra Catheter?: Yes Catheter Insertion Criteria: Need for accurate measurement of output in critically ill patient - Prophylaxis GI Prophylaxis GI: Pepsid - Prophylaxis DVT Prophylaxis DVT: Lovenox - Nutrition Nutrition: Nutrition Category Date Time Status NPO Diet [DIET] Diets 11/16/16 Dinner Active Assessment/Plan - Assessment and Plan (Free Text) Assessment: 51F POD#2 s/p RLL wedge resection, intubated/sedated, continuing to require mech vent, awake, alert, asking for more pain mgmt. Plan: Neuro Awake Alert Sedated- Propofol will switch to Fentanyl drip Cont home meds: Zoloft, Xanax, Keppra, Abilify- d/c'd Insomnia- Xanax 2mg HS Seizure precautions Monitor CVS Stable ASA Plavix Monitor Pulm POD#2 s/p RLL wedge resection ABG pH 7.40 O2 62, CO2 51, HCO3 32.1 TV decreased Intubated ON mech vent protective lung protocol Duonebs SOlu-medrol Toradaol as per surgery CXR - No significant interval change FU path Pulm following Nephro Mg 1.6 Supplemented Hypokalemia- K 3.5 Replaced Spironolactone- held Monitor GI No abdominal pain Distention improving OGT in place Tube feeds restarted Supplements Probiotic Lactulose until BMs x 2 Zofran NS@50 Colace -d/c'd Morphine Dilaudid Gen surg following- SBO mgmt as per surgery Mishra in place MOnitor UOP Heme Hgb 9.2 from 8.9 Hct 28.5 from 26.9 Monitor Endo Sugars WNL Monitor MSK Monitor for skin break down ID Repeat Urine cx - yeast sp No leukocytosis Afebrile over last 24H Bactrim - d/c'd Cipro Tylenol PRN ID following- ordered multiple labs/cultures etc for tissue specimen GI/DVT ppx Pepcid SCDs Lovenox Dispo: Cont ICU care On mech vent DW attending - Date & Time Date: 11/19/16 Time: 06:50 <Wendy Michael - Last Filed: 11/19/16 19:35> CCU Subjective - Physician Review Events Since Last Encounter (Free Text): 11/19/16 19:33 Patient remains stable, on very high ventilator requirements peep 8, fio2 100% with sats 85%-93%, pap 14-16 d/c iv fluids give lactulose for constipation add fentanyl drip for pain control d/c bactrim, abiliigy and sertraline CCU Objective - Vital Signs / Intake & Output Vital Signs (Last 4 hours): Vital Signs Temp Pulse Resp BP Pulse Ox 11/19/16 17:09 98 H 21 102/65 96 11/19/16 17:00 107 H 19 96 11/19/16 16:09 95 H 20 95/59 L 94 L 11/19/16 16:00 97.6 F 106 H 24 88 L Intake and Output (Last 8hrs): Intake & Output 11/19/16 11/19/16 11/19/16 06:59 14:59 22:59 Intake Total 916 Output Total 360 Balance 556 Intake: Intake, IV Amount 506 Right Medial Port 56 Internal Jugular Right Distal Port 450 Internal Jugular Oral 200 Tube Feeding 210 Output: Urine 360 Urethral (Mishra) 360 - Medications Active Medications: Active Medications Generic Name Dose Route Start Last Admin Trade Name Freq PRN Reason Stop Dose Admin Acetaminophen 650 mg 11/08/16 20:26 Tylenol 325mg Tab PO Q6 PRN Fever >100.4 F Albuterol/Ipratropium 3 ml 11/19/16 02:00 11/19/16 19:31 Duoneb 3 Mg/0.5 Mg (3 Ml) Ud INH 3 ml RQ6 [facility] Administration Alprazolam 0.5 mg 11/17/16 20:23 11/19/16 05:12 Xanax PO 0.5 mg Q8H PRN Administration Anxiety Alprazolam 2 mg 11/19/16 22:00 Xanax PO HS [facility] Aspirin 81 mg 11/07/16 10:00 11/16/16 09:49 Aspirin Chewable PO 81 mg DAILY [facility] Administration Clopidogrel Bisulfate 75 mg 11/07/16 10:00 11/08/16 10:24 Plavix PO 75 mg DAILY [facility] Administration Enoxaparin Sodium 40 mg 11/07/16 10:00 11/19/16 10:49 Lovenox SC 40 mg DAILY [facility] Administration Famotidine 20 mg 11/17/16 10:15 11/19/16 17:49 Pepcid IVP 20 mg BID [facility] Administration Hydromorphone HCl 1 mg 11/19/16 14:38 11/19/16 18:27 Dilaudid IVP 1 mg Q3H PRN Administration Pain, severe (8-10) Ciprofloxacin 200 mls @ 133 mls/hr 11/14/16 14:00 11/19/16 14:23 Cipro 400mg/200ml Dsw IVPB 133 mls/hr Q12H [facility] Administration Propofol 100 mls @ 2.01 mls/hr 11/17/16 20:19 11/19/16 07:58 Diprivan IV 3.216 mls/hr .Q24H PRN Administration TITRATE PER MD ORDER Protocol 5 MCG/KG/MIN Fentanyl Citrate 2,500 mcg/ 250 mls @ 70 mls/hr 11/19/16 10:35 Sodium Chloride IV .Q3H35M [facility] Protocol 10 MCG/KG/HR Ketorolac Tromethamine 30 mg 11/19/16 12:00 11/19/16 17:49 Toradol IVP 30 mg Q6 [facility] Administration Lactulose 20 gm 11/19/16 10:30 11/19/16 17:49 Enulose PO 20 gm Q4H [facility] Administration Levetiracetam 500 mg 11/09/16 18:00 11/19/16 17:48 Keppra PO 500 mg BID [facility] Administration Methylprednisolone 40 mg 11/09/16 14:00 11/19/16 14:22 Solu-Medrol IV 40 mg Q8 [facility] Administration - Patient Studies Lab Studies: Lab Studies 11/19/16 11/19/16 Range/Units 06:31 05:14 WBC 9.3 (4.8-10.8) K/uL RBC 2.79 L (3.80-5.20) Mil/uL Hgb 8.4 L (11.0-16.0) g/dL Hct 25.2 L (34.0-47.0) % MCV 90.5 (81.0-99.0) fL MCH 30.3 (27.0-31.0) pg MCHC 33.5 (33.0-37.0) g/dL RDW 16.1 H (11.5-14.5) % Plt Count 305 (130-400) K/uL MPV 7.3 (7.2-11.7) fL Neut % (Auto) 79.7 H (50.0-75.0) % Lymph % (Auto) 14.1 L (20.0-40.0) % [place] % (Auto) 6.0 (0.0-10.0) % Eos % (Auto) 0.1 (0.0-4.0) % Baso % (Auto) 0.1 (0.0-2.0) % Neut # 7.4 H (1.8-7.0) K/uL Lymph # 1.3 (1.0-4.3) K/uL [place] # 0.6 (0.0-0.8) K/uL Eos # 0.0 (0.0-0.7) K/uL Baso # 0.0 (0.0-0.2) K/uL Puncture Site Rr pCO2 51 H (35-45) mm/Hg pO2 62 L (80-100) mm/Hg HCO3 32.1 H (21-28) mmol/L ABG pH 7.44 (7.35-7.45) ABG Total CO2 36.2 H (22-28) mmol/L ABG O2 Saturation 93.9 L (95-98) % ABG Base Excess 9.3 H (-2.0-3.0) mmol/L ABG Hemoglobin 9.3 L (11.7-17.4) g/dL ABG Carboxyhemoglobin 2.1 H (0.5-1.5) % POC ABG HHb (Measured) 5.9 H (0.0-5.0) % ABG Methemoglobin 0.7 (0.0-3.0) % Reese Test Pos A-a O2 Difference 587.0 mm/Hg Respiratory Index 9.5 Hgb O2 Saturation 91.3 L (95.0-98.0) % Mechanical Rate 14 FiO2 100.0 % Tidal Volume 450 PEEP 6 Sodium 136 (132-148) mmol/L Potassium 3.5 L (3.6-5.2) mmol/L Chloride 99 (98-107) mmol/L Carbon Dioxide 32 H (22-30) mmol/L Anion Gap 9 L (10-20) BUN 9 (7-17) mg/dL Creatinine 0.6 L (0.7-1.2) MG/DL Est GFR ( Amer) > 60 Est GFR (Non-Af Amer) > 60 Random Glucose 84 (65-105) mg/dL Calcium 7.4 L (8.6-10.4) mg/dl Phosphorus 3.7 (2.5-4.5) mg/dL Magnesium 1.6 (1.6-2.3) mg/dL Total Bilirubin 0.5 (0.2-1.3) mg/dL AST 16 (14-36) U/L ALT 25 (9-52) U/L Alkaline Phosphatase 117 (38-126) U/L Total Protein 5.0 L (6.3-8.3) g/dL Albumin 2.1 L (3.5-5.0) g/dL Globulin 2.9 (2.2-3.9) gm/dL Albumin/Globulin Ratio 0.7 L (1.0-2.1) Laboratory Results - last 24 hr 11/19/16 11/19/16 05:14 06:31 WBC 9.3 RBC 2.79 L Hgb 8.4 L Hct 25.2 L MCV 90.5 MCH 30.3 MCHC 33.5 RDW 16.1 H Plt Count 305 MPV 7.3 Neut % (Auto) 79.7 H Lymph % (Auto) 14.1 L [place] % (Auto) 6.0 Eos % (Auto) 0.1 Baso % (Auto) 0.1 Neut # 7.4 H Lymph # 1.3 [place] # 0.6 Eos # 0.0 Baso # 0.0 Puncture Site Rr pCO2 51 H pO2 62 L HCO3 32.1 H ABG pH 7.44 ABG Total CO2 36.2 H ABG O2 Saturation 93.9 L ABG Base Excess 9.3 H ABG Hemoglobin 9.3 L ABG Carboxyhemoglobin 2.1 H POC ABG HHb (Measured) 5.9 H ABG Methemoglobin 0.7 Reese Test Pos A-a O2 Difference 587.0 Respiratory Index 9.5 Hgb O2 Saturation 91.3 L Mechanical Rate 14 FiO2 100.0 Tidal Volume 450 PEEP 6 Sodium 136 Potassium 3.5 L Chloride 99 Carbon Dioxide 32 H Anion Gap 9 L BUN 9 Creatinine 0.6 L Est GFR ( Amer) > 60 Est GFR (Non-Af Amer) > 60 Random Glucose 84 Calcium 7.4 L Phosphorus 3.7 Magnesium 1.6 Total Bilirubin 0.5 AST 16 ALT 25 Alkaline Phosphatase 117 Total Protein 5.0 L Albumin 2.1 L Globulin 2.9 Albumin/Globulin Ratio 0.7 L Critical Care Progress Note - Nutrition Nutrition: Nutrition Category Date Time Status NPO Diet [DIET] Diets 11/16/16 Dinner Active
[2016-11-19] MEDS: HYDROmorphone 0.5 mg/0.5 ml ISec IVP PRN (18:27)
[2016-11-20] MEDS: Ciprofloxacin 400mg/200ml D5W 200 ML IVPB SCH ×2 (01:00→14:29)
[2016-11-20] MEDS: Albuterol-Ipratrop 3 mg / 0.5 (3 ml) UD INH SCH ×4 (01:19→19:28)
[2016-11-20 05:45] LABS: ABG ALLEN TEST POS; ABG MECHANICAL RATE 14; ARTERIAL BLOOD HGB O2 SAT 85.4 % (95.0-98.0); ATERIAL BLOOD GAS PEEP 8; CARBOXYHEMOGLOBIN 2.6 % (0.5-1.5); DRAW SITE RR; HHB 10.9 % (0.0-5.0); METHEMOGLOBIN 1.2 % (0.0-3.0)
[2016-11-20 06:32] LABS: BASO % 0.1 % (0.0-2.0); EOS % 0.1 % (0.0-4.0); HEMATOCRIT 27.1 % (34.0-47.0); LYMPH # 1.1 K/uL (1.0-4.3); LYMPH % 8.3 % (20.0-40.0); MEAN CELL VOLUME 90.7 fL (81.0-99.0); MEAN CORPUSCULAR HEMOGLOBIN 28.7 pg (27.0-31.0); MEAN CORPUSCULAR HGB CONC 31.6 g/dL (33.0-37.0); MEAN PLATELET VOLUME 7.3 fL (7.2-11.7); MONO # 0.8 K/uL (0.0-0.8); MONO % 5.9 % (0.0-10.0); PLATELET COUNT 314 K/uL (130-400); RED CELL DISTRIBUTION WIDTH 15.8 % (11.5-14.5); WHITE BLOOD COUNT 13.6 K/uL (4.8-10.8)
[2016-11-20 06:46] LABS: CHLORIDE 99 mmol/L (98-107)
[2016-11-20 06:47] LABS: POTASSIUM 4.3 mmol/L (3.6-5.2); SODIUM 138 mmol/L (132-148)
[2016-11-20 06:49] LABS: ALB/GLOB RATIO 0.9 (1.0-2.1); ALKALINE PHOSPHATASE 132 U/L (38-126); AST/SGOT 20 U/L (14-36); BILIRUBIN,TOTAL 0.6 mg/dL (0.2-1.3); BLOOD UREA NITROGEN 13 mg/dL (7-17); CARBON DIOXIDE 34 mmol/L (22-30); GFR AFRICAN-AMERICAN > 60; TOTAL PROTEIN 5.8 g/dL (6.3-8.3)
[2016-11-20 06:50] LABS: ALT/SGPT 28 U/L (9-52); CALCIUM 8.2 mg/dl (8.6-10.4); GLUCOSE,RANDOM 100 mg/dL (65-105); PHOSPHOROUS 5.1 mg/dL (2.5-4.5)
[2016-11-20 08:24] LABS: NEUTROPHIL 84 % (50-75); TOTAL CELLS COUNTED 100
--- NOTE | 2016-11-20 09:07 | CP.PCM.PN ---
Subjective - Date & Time of Evaluation Date of Evaluation: 11/20/16 Time of Evaluation: 09:02 - Subjective Subjective: Cardiothoracic Surgery Note - Dr. Chan Pt seen and examined at bedside. Pt is on VTM , 100% O2 and PEEP 15, for SOB. Pt admits to having BM x3 yesterday. Right-sided CT drained 130 cc in 24 hours. She denies CP/N/V/F/C. Objective - Vital Signs/Intake and Output Vital Signs (last 24 hours): Temp Pulse Resp BP Pulse Ox 97.0 F L 101 H 15 93/66 L 94 L 11/20/16 04:00 11/20/16 07:00 11/20/16 07:00 11/20/16 06:09 11/20/16 07:00 Intake and Output: 11/20/16 11/20/16 06:59 18:59 Intake Total 976 Output Total 520 Balance 456 - Medications Medications: Current Medications Acetaminophen (Tylenol 325mg Tab) 650 mg PO Q6 PRN PRN Reason: Fever >100.4 F Albuterol/Ipratropium (Duoneb 3 Mg/0.5 Mg (3 Ml) Ud) 3 ml INH RQ6 [facility] Last Admin: 11/20/16 07:52 Dose: 3 ml Alprazolam (Xanax) 0.5 mg PO Q8H PRN PRN Reason: Anxiety Last Admin: 11/19/16 05:12 Dose: 0.5 mg Alprazolam (Xanax) 2 mg PO HS [facility] Last Admin: 11/19/16 21:17 Dose: 2 mg Aspirin (Aspirin Chewable) 81 mg PO DAILY [facility] Last Admin: 11/16/16 09:49 Dose: 81 mg Clopidogrel Bisulfate (Plavix) 75 mg PO DAILY [facility] Last Admin: 11/08/16 10:24 Dose: 75 mg Enoxaparin Sodium (Lovenox) 40 mg SC DAILY [facility] Last Admin: 11/19/16 10:49 Dose: 40 mg Famotidine (Pepcid) 20 mg IVP BID [facility] Last Admin: 11/19/16 17:49 Dose: 20 mg Hydromorphone HCl (Dilaudid) 1 mg IVP Q3H PRN PRN Reason: Pain, severe (8-10) Last Admin: 11/19/16 18:27 Dose: 1 mg Ciprofloxacin (Cipro 400mg/200ml Dsw) 200 mls @ 133 mls/hr IVPB Q12H [facility] Last Admin: 11/20/16 01:00 Dose: 133 mls/hr Propofol (Diprivan) 100 mls @ 2.01 mls/hr IV .Q24H PRN; Protocol; 5 MCG/KG/MIN PRN Reason: TITRATE PER MD ORDER Last Admin: 11/20/16 08:00 Dose: 3.216 mls/hr Fentanyl Citrate 2,500 mcg/ (Sodium Chloride) 250 mls @ 70 mls/hr IV .Q3H35M [facility]; 10 MCG/KG/HR PRN Reason: Protocol Last Admin: 11/20/16 03:36 Dose: Not Given Fluconazole (Diflucan Iv 200 Mg/100 Ml Ns) 100 mls @ 100 mls/hr IVPB DAILY [facility] Ketorolac Tromethamine (Toradol) 30 mg IVP Q6 [facility] Last Admin: 11/20/16 05:33 Dose: Not Given Lactulose (Enulose) 20 gm PO Q4H [facility] Last Admin: 11/20/16 06:29 Dose: Not Given Levetiracetam (Keppra) 500 mg PO BID [facility] Last Admin: 11/19/16 17:48 Dose: 500 mg Methylprednisolone (Solu-Medrol) 40 mg IV Q8 [facility] Last Admin: 11/20/16 05:30 Dose: 40 mg - Labs Labs: 11/20/16 06:19 11/20/16 06:19 PT 12.3 SECONDS (9.7-12.2) H 11/16/16 06:24 INR 1.1 11/16/16 06:24 APTT 32 SECONDS (21-34) 11/16/16 06:24 - Constitutional Appears: No Acute Distress, Chronically Ill - Head Exam Head Exam: ATRAUMATIC, NORMAL INSPECTION - Eye Exam Eye Exam: Normal appearance, PERRL - ENT Exam ENT Exam: Mucous Membranes Moist Additional comments: intubated - Neck Exam Neck Exam: Normal Inspection - Respiratory Exam Respiratory Exam: Respiratory Distress - Cardiovascular Exam Cardiovascular Exam: +S1, +S2 - GI/Abdominal Exam GI & Abdominal Exam: Soft. absent: Distended, Tenderness - Neurological Exam Neurological Exam: Alert, Awake - Skin Skin Exam: Intact, Normal Color Assessment and Plan - Assessment and Plan (Free Text) Assessment: This is a 51 y/o F with pulmonary fibrosis s/p R VATS with wedge resection & CT placement Plan: - Cont CT on suction; monitor output - F/U Daily CXR - f/u pathology - d/w Dr. Chan
[2016-11-20] MEDS ORDERED: Propofol 10 mg/ml Inj (20 ML) IV ONE (09:27)
--- NOTE | 2016-11-20 09:45 | RAD ---
HISTORY: intubated COMPARISON: 11/19/2016. FINDINGS: LUNGS: Increasing hazy confluent opacities throughout both lungs. PLEURA: Possible bilateral pleural effusions. CARDIOVASCULAR: Enlarged cardiomediastinal silhouette. OSSEOUS STRUCTURES: No significant abnormalities. VISUALIZED UPPER ABDOMEN: Suboptimally evaluated. However, dilated air-filled loops of bowel noted. Underlying obstruction/ileus can be considered if clinically relevant. Surgical clips noted in the right upper quadrant abdomen. OTHER FINDINGS: Right-sided chest tube noted with the distal tip in the right apex. Presumed vascular catheter in the right neck, ET tube and feeding tube remain stable in position. IMPRESSION: Increasing hazy confluent opacities throughout both lungs with possible bilateral pleural effusions.
--- NOTE | 2016-11-20 10:07 | CP.PCM.PN ---
Subjective - Date & Time of Evaluation Date of Evaluation: 11/20/16 Time of Evaluation: 08:10 - Subjective Subjective: patient seen and examined in the intensive care unit. Intubated on ventilatory support requiring 100% FiO2 with PEEP of 10 saturation 80-82% Worsening chest x-ray noted Chest tube in place Awake and responsive Objective - Vital Signs/Intake and Output Vital Signs (last 24 hours): Temp Pulse Resp BP Pulse Ox 97.0 F L 101 H 15 93/66 L 94 L 11/20/16 04:00 11/20/16 07:00 11/20/16 07:00 11/20/16 06:09 11/20/16 07:00 Intake and Output: 11/20/16 11/20/16 06:59 18:59 Intake Total 976 Output Total 520 Balance 456 - Medications Medications: Current Medications Acetaminophen (Tylenol 325mg Tab) 650 mg PO Q6 PRN PRN Reason: Fever >100.4 F Albuterol/Ipratropium (Duoneb 3 Mg/0.5 Mg (3 Ml) Ud) 3 ml INH RQ6 [facility] Last Admin: 11/20/16 07:52 Dose: 3 ml Alprazolam (Xanax) 0.5 mg PO Q8H PRN PRN Reason: Anxiety Last Admin: 11/19/16 05:12 Dose: 0.5 mg Alprazolam (Xanax) 2 mg PO HS [facility] Last Admin: 11/19/16 21:17 Dose: 2 mg Aspirin (Aspirin Chewable) 81 mg PO DAILY [facility] Last Admin: 11/16/16 09:49 Dose: 81 mg Clopidogrel Bisulfate (Plavix) 75 mg PO DAILY [facility] Last Admin: 11/08/16 10:24 Dose: 75 mg Enoxaparin Sodium (Lovenox) 40 mg SC DAILY [facility] Last Admin: 11/19/16 10:49 Dose: 40 mg Famotidine (Pepcid) 20 mg IVP BID [facility] Last Admin: 11/19/16 17:49 Dose: 20 mg Hydromorphone HCl (Dilaudid) 1 mg IVP Q3H PRN PRN Reason: Pain, severe (8-10) Last Admin: 11/19/16 18:27 Dose: 1 mg Ciprofloxacin (Cipro 400mg/200ml Dsw) 200 mls @ 133 mls/hr IVPB Q12H [facility] Last Admin: 11/20/16 01:00 Dose: 133 mls/hr Propofol (Diprivan) 100 mls @ 2.01 mls/hr IV .Q24H PRN; Protocol; 5 MCG/KG/MIN PRN Reason: TITRATE PER MD ORDER Last Admin: 11/20/16 08:00 Dose: 3.216 mls/hr Fentanyl Citrate 2,500 mcg/ (Sodium Chloride) 250 mls @ 70 mls/hr IV .Q3H35M [place]; 10 MCG/KG/HR PRN Reason: Protocol Last Admin: 11/20/16 09:03 Dose: 26.8 mls/hr Fluconazole (Diflucan Iv 200 Mg/100 Ml Ns) 100 mls @ 100 mls/hr IVPB DAILY [place] Furosemide 100 mg/ Sodium (Chloride) 100 mls @ 10 mls/hr IV .Q10H [place]; 10 MG/HR PRN Reason: Protocol Ketorolac Tromethamine (Toradol) 30 mg IVP Q6 [facility] Last Admin: 11/20/16 05:33 Dose: Not Given Lactulose (Enulose) 20 gm PO HS PRN PRN Reason: Constipation Levetiracetam (Keppra) 500 mg PO BID [facility] Last Admin: 11/19/16 17:48 Dose: 500 mg Methylprednisolone (Solu-Medrol) 40 mg IV Q8 [facility] Last Admin: 11/20/16 05:30 Dose: 40 mg - Labs Labs: 11/20/16 06:19 11/20/16 06:19 PT 12.3 SECONDS (9.7-12.2) H 11/16/16 06:24 INR 1.1 11/16/16 06:24 APTT 32 SECONDS (21-34) 11/16/16 06:24 - Head Exam Head Exam: ATRAUMATIC, NORMOCEPHALIC - Eye Exam Eye Exam: Normal appearance - ENT Exam ENT Exam: Mucous Membranes Moist - Neck Exam Neck Exam: Normal Inspection - Respiratory Exam Respiratory Exam: Rales - Cardiovascular Exam Cardiovascular Exam: REGULAR RHYTHM - GI/Abdominal Exam GI & Abdominal Exam: Soft, Normal Bowel Sounds - Extremities Exam Extremities Exam: Normal Inspection - Neurological Exam Neurological Exam: Awake Assessment and Plan (1) Respiratory insufficiency Assessment & Plan: worsening chest x-ray noted consistent with ARDS/pulmonary edema Consider Lasix drip Continue antibiotics per ID Continue ventilatory support Repeat echocardiogram Awaiting biopsy report Status: Acute (2) Bilateral pneumonia Status: Acute (3) Small bowel obstruction Status: Acute
[2016-11-20] MEDS: Enoxaparin 40 mg Syringe SC SCH (10:08)
[2016-11-20] MEDS: Fluconazole IV 200mg/100 ml NS 100 ML IVPB SCH (10:09)
[2016-11-20] MEDS: levETIRAcetam 100 mg/ml (5ml) Oral Syringe PO SCH ×2 (10:09→18:19)
[2016-11-20] MEDS: Furosemide 100 MG in Sodium Chloride 0.9% 90 ML IV SCH ×2 (11:33→20:00)
[2016-11-20] MEDS: MethylPREDNISolone 40 mg Vial IV SCH ×2 (14:28→18:20)
[2016-11-20] MEDS: HYDROmorphone 0.5 mg/0.5 ml ISec IVP PRN (14:51)
--- NOTE | 2016-11-20 14:59 | CP.CCUPN ---
<Mariana Robison - Last Filed: 11/20/16 15:02> CCU Subjective - Physician Review Events Since Last Encounter (Free Text): 11/20/16 14:56 Continuing to require intubation/sedation - hypoxic Subjective (Free Text): 11/10/16 12:04 Pt S & E this AM. Reports ab pain and SOB improved- on VTM. Had soft unformed BMs x 2 yesterday, 1 liquid stool today with large volume flatus. Denies N/V/F/C, chest pain. 11/11/16 12:38 Pt S & E this AM. Pt reports having 3 liquid stools yesterday, continues to require VTM 2/2 SOB, insomnia. Abdominal pain much improved, abdominal distention much improved. Denies N/V/F/C, chest pain. 11/12/16 14:26 Pt S & E this AM. Pt reports continued SOB, likes being on Bipap 2/2 less work to breathe. Ab pain improved, continues with liquid stools, now has non productive cough. 11/13/16 16:55 Pt S & E this AM. Pt continues w/SOB requiring Bipap overnight, using more Bipap vs. VTM mask, states she had insomnia overnight 2/2 SOB, needing to focus on breathing. Abdominal pain resolved. Had slight nausea yesterday with protein supplement. Had 1 liquid BM yesterday. Denies emesis, fevers, chills, chest pain. 11/16/16 13:44 P S & E this AM. Pt on BiPAP -tolerating it well. Pt admits to epigastric abdominal pain, hunger -asking for food. For OR tomorrow for bronchoscopy and wedge biopsy with Dr. Chan. 11/17/16 12:40 Pt S & E this AM. Pt stable on BiPAP confortable overnight. Continued epigastric pain but tolerating diet intermittently. No BM despite SS enema & colace. For bronchoscopy and wedge biopsy today with Dr. Chan. 11/18/16 18:07 Pt S & E this AM. Pt intubated/sedated, but alert, awake. Gesturing that her abdominal pain has resolved. 11/19/16 12:34 Pt S & E this AM. Pt intubated/sedated, but alert & awake. C/O chest wall pain, asking for sleep medication. 11/20/16 14:57 Pt S & E this AM. Pt intubated/sedated, but alert, awake, no abdominal pain, stable. Critical Care Time Spent (in minutes): 60 CCU Objective - Vital Signs / Intake & Output Vital Signs (Last 4 hours): Vital Signs Temp Pulse Resp BP Pulse Ox 11/20/16 14:00 123 H 18 88 L 11/20/16 13:09 125 H 22 93/63 L 87 L 11/20/16 13:07 124 H 17 102/66 88 L 11/20/16 13:00 129 H 20 88 L 11/20/16 12:10 131 H 23 110/67 87 L 11/20/16 12:00 97.4 F L 130 H 25 H 85 L 11/20/16 11:33 108/63 11/20/16 11:09 124 H 27 H 108/63 82 L 11/20/16 11:00 122 H 25 H 82 L 11/20/16 10:57 122 H 25 H 81 L Intake and Output (Last 8hrs): Intake & Output 11/19/16 11/20/16 11/20/16 22:59 06:59 14:59 Intake Total 708 570 596 Output Total 340 520 300 Balance 368 50 296 Intake: Intake, IV Amount 318 330 456 Right Medial Port 118 280 356 Internal Jugular Right Distal Port 200 50 100 Internal Jugular Oral 150 Tube Feeding 240 240 90 Other 50 Output: Chest Tube Drainage 120 Right Mid-Axillary Chest 120 Urine 340 400 300 Urethral (Mishra) 340 400 300 Other: # Bowel Movements 1 1 - Physical Exam Head: Positive for: Atraumatic, Normocephalic Pupils: Positive for: PERRL Extroacular Muscles: Positive for: EOMI Conjunctiva: Positive for: Normal Ears: Positive for: Normal Mouth: Positive for: Moist Mucous Membranes, Other (ET & OG tubes in place) Pharnyx: Positive for: Normal Nose (External): Positive for: Atraumatic Neck: Positive for: Normal Range of Motion, Trachea Midline, Other (Right IJ (- ) erythema/drainage) Respiratory/Chest: Positive for: Good Air Exchange, Decreased Breath Sounds, Rhonchi (diffuse). Negative for: Clear to Auscultation (coarse BS b/l), Respiratory Distress, Accessory Muscle Use, Wheezes, Rales, Retracting Cardiovascular: Positive for: Normal S1, S2, Peripheal Pulses Present, Tachycardic. Negative for: Murmurs, Rub, Gallop Abdomen: Negative for: Tenderness, Distention, Normal Bowel Sounds (hypoactive) , Peritoneal Signs, Rebound, Guarding Upper Extremity: Positive for: Normal Inspection. Negative for: Cyanosis, Edema Lower Extremity: Positive for: Normal Inspection. Negative for: Edema (B/L, minimal) Neurological: Positive for: Other (intubated/sedated). Negative for: GCS=15, Speech Normal Skin: Positive for: Warm, Dry, Normal Color. Negative for: Rashes Psychiatric: Positive for: Alert - Medications Active Medications: Active Medications Generic Name Dose Route Start Last Admin Trade Name Freq PRN Reason Stop Dose Admin Acetaminophen 650 mg 11/08/16 20:26 Tylenol 325mg Tab PO Q6 PRN Fever >100.4 F Albuterol/Ipratropium 3 ml 11/19/16 02:00 11/20/16 13:16 Duoneb 3 Mg/0.5 Mg (3 Ml) Ud INH 3 ml RQ6 BALBINA Administration Alprazolam 0.5 mg 11/17/16 20:23 11/19/16 05:12 Xanax PO 0.5 mg Q8H PRN Administration Anxiety Alprazolam 2 mg 11/19/16 22:00 11/19/16 21:17 Xanax PO 2 mg HS BALBINA Administration Aspirin 81 mg 11/07/16 10:00 11/20/16 10:09 Aspirin Chewable PO 81 mg DAILY BALBINA Administration Clopidogrel Bisulfate 75 mg 11/07/16 10:00 11/08/16 10:24 Plavix PO 75 mg DAILY BALBINA Administration Enoxaparin Sodium 40 mg 11/07/16 10:00 11/20/16 10:08 Lovenox SC 40 mg DAILY BALBINA Administration Famotidine 20 mg 11/17/16 10:15 11/20/16 10:09 Pepcid IVP 20 mg BID BALBNIA Administration Hydromorphone HCl 1 mg 11/19/16 14:38 11/20/16 14:51 Dilaudid IVP 1 mg Q3H PRN Administration Pain, severe (8-10) Ciprofloxacin 200 mls @ 133 mls/hr 11/14/16 14:00 11/20/16 14:29 Cipro 400mg/200ml Dsw IVPB 133 mls/hr Q12H BALBINA Administration Propofol 100 mls @ 2.01 mls/hr 11/17/16 20:19 11/20/16 14:44 Diprivan IV 12.06 mls/hr .Q24H PRN Administration TITRATE PER MD ORDER Protocol 5 MCG/KG/MIN Fentanyl Citrate 2,500 mcg/ 250 mls @ 70 mls/hr 11/19/16 10:35 11/20/16 10:00 Sodium Chloride IV 5 mcg/kg/hr .Q3H35M BALBINA Titration Protocol 10 MCG/KG/HR Fluconazole 100 mls @ 100 mls/hr 11/20/16 10:00 11/20/16 10:09 Diflucan Iv 200 Mg/100 Ml Ns IVPB 100 mls/hr DAILY BALBINA Administration Furosemide 100 mg/ Sodium 100 mls @ 10 mls/hr 11/20/16 10:00 11/20/16 11:33 Chloride IV 10 mls/hr .Q10H BALBIAN Administration Protocol 10 MG/HR Midazolam HCl 100 mg/ Sodium 100 mls @ 1.4 mls/hr 11/20/16 15:00 Chloride IV .Q24H BALBINA Protocol 0.02 MG/KG/HR Ketorolac Tromethamine 30 mg 11/19/16 12:00 11/20/16 11:32 Toradol IVP 30 mg Q6 BALBINA Administration Lactulose 20 gm 11/20/16 09:28 Enulose PO HS PRN Constipation Levetiracetam 500 mg 11/09/16 18:00 11/20/16 10:09 Keppra PO 500 mg BID BALBINA Administration Methylprednisolone 80 mg 11/20/16 14:16 11/20/16 14:28 Solu-Medrol IV 80 mg Q6 BALBINA Administration - Patient Studies Lab Studies: Lab Studies 11/20/16 11/20/16 11/20/16 Range/Units 11:30 06:19 05:21 WBC 13.6 H (4.8-10.8) K/uL RBC 2.99 L (3.80-5.20) Mil/uL Hgb 8.6 L (11.0-16.0) g/dL Hct 27.1 L (34.0-47.0) % MCV 90.7 (81.0-99.0) fL MCH 28.7 (27.0-31.0) pg MCHC 31.6 L (33.0-37.0) g/dL RDW 15.8 H (11.5-14.5) % Plt Count 314 (130-400) K/uL MPV 7.3 (7.2-11.7) fL Neut % (Auto) 85.6 H (50.0-75.0) % Lymph % (Auto) 8.3 L (20.0-40.0) % Routt % (Auto) 5.9 (0.0-10.0) % Eos % (Auto) 0.1 (0.0-4.0) % Baso % (Auto) 0.1 (0.0-2.0) % Neut # 11.7 H (1.8-7.0) K/uL Lymph # 1.1 (1.0-4.3) K/uL Routt # 0.8 (0.0-0.8) K/uL Eos # 0.0 (0.0-0.7) K/uL Baso # 0.0 (0.0-0.2) K/uL Neutrophils % (Manual) 84 H (50-75) % Lymphocytes % (Manual) 13 L (20-40) % Monocytes % (Manual) 3 (0-10) % Platelet Estimate Normal (NORMAL) Hypochromasia (manual) Moderate Poikilocytosis (manual Slight Anisocytosis (manual) Slight Microcytosis (manual) Slight Macrocytosis (manual) Slight Puncture Site Rr pCO2 59 H (35-45) mm/Hg pO2 53 L (80-100) mm/Hg HCO3 30.8 H (21-28) mmol/L ABG pH 7.37 (7.35-7.45) ABG Total CO2 35.9 H (22-28) mmol/L ABG O2 Saturation 88.7 L (95-98) % ABG Base Excess 7.7 H (-2.0-3.0) mmol/L ABG Hemoglobin 8.6 L (11.7-17.4) g/dL ABG Carboxyhemoglobin 2.6 H (0.5-1.5) % POC ABG HHb (Measured) 10.9 H (0.0-5.0) % ABG Methemoglobin 1.2 (0.0-3.0) % Reese Test Pos A-a O2 Difference 586.0 mm/Hg Respiratory Index 11.1 Hgb O2 Saturation 85.4 L (95.0-98.0) % Mechanical Rate 14 FiO2 100.0 % Tidal Volume 400 PEEP 8 Sodium 138 (132-148) mmol/L Potassium 4.3 (3.6-5.2) mmol/L Chloride 99 (98-107) mmol/L Carbon Dioxide 34 H (22-30) mmol/L Anion Gap 9 L (10-20) BUN 13 (7-17) mg/dL Creatinine 0.6 L (0.7-1.2) MG/DL Est GFR ( Amer) > 60 Est GFR (Non-Af Amer) > 60 Random Glucose 100 (65-105) mg/dL Calcium 8.2 L (8.6-10.4) mg/dl Phosphorus 5.1 H (2.5-4.5) mg/dL Magnesium 2.0 (1.6-2.3) mg/dL Total Bilirubin 0.6 (0.2-1.3) mg/dL AST 20 (14-36) U/L ALT 28 (9-52) U/L Alkaline Phosphatase 132 H (38-126) U/L Total Protein 5.8 L (6.3-8.3) g/dL Albumin 2.7 L D (3.5-5.0) g/dL Globulin 3.1 (2.2-3.9) gm/dL Albumin/Globulin Ratio 0.9 L (1.0-2.1) Procalcitonin 0.09 L (0.19-0.49) NG/ML Laboratory Results - last 24 hr 11/20/16 11/20/16 11/20/16 05:21 06:19 11:30 WBC 13.6 H RBC 2.99 L Hgb 8.6 L Hct 27.1 L MCV 90.7 MCH 28.7 MCHC 31.6 L RDW 15.8 H Plt Count 314 MPV 7.3 Neut % (Auto) 85.6 H Lymph % (Auto) 8.3 L Routt % (Auto) 5.9 Eos % (Auto) 0.1 Baso % (Auto) 0.1 Neut # 11.7 H Lymph # 1.1 Routt # 0.8 Eos # 0.0 Baso # 0.0 Neutrophils % (Manual) 84 H Lymphocytes % (Manual) 13 L Monocytes % (Manual) 3 Platelet Estimate Normal Hypochromasia (manual) Moderate Poikilocytosis (manual Slight Anisocytosis (manual) Slight Microcytosis (manual) Slight Macrocytosis (manual) Slight Puncture Site Rr pCO2 59 H pO2 53 L HCO3 30.8 H ABG pH 7.37 ABG Total CO2 35.9 H ABG O2 Saturation 88.7 L ABG Base Excess 7.7 H ABG Hemoglobin 8.6 L ABG Carboxyhemoglobin 2.6 H POC ABG HHb (Measured) 10.9 H ABG Methemoglobin 1.2 Reese Test Pos A-a O2 Difference 586.0 Respiratory Index 11.1 Hgb O2 Saturation 85.4 L Mechanical Rate 14 FiO2 100.0 Tidal Volume 400 PEEP 8 Sodium 138 Potassium 4.3 Chloride 99 Carbon Dioxide 34 H Anion Gap 9 L BUN 13 Creatinine 0.6 L Est GFR ( Amer) > 60 Est GFR (Non-Af Amer) > 60 Random Glucose 100 Calcium 8.2 L Phosphorus 5.1 H Magnesium 2.0 Total Bilirubin 0.6 AST 20 ALT 28 Alkaline Phosphatase 132 H Total Protein 5.8 L Albumin 2.7 L D Globulin 3.1 Albumin/Globulin Ratio 0.9 L Procalcitonin 0.09 L Review of Systems - Review of Systems Systems not reviewed;Unavailable: Intubated Critical Care Progress Note - Ventilator Checklist Head of Bed 30 Degrees: Yes Daily Sedation Vacation: Yes Daily Assessment of Readiness to Learn: Yes Daily Spontaneous Breathing Trial: Yes PUD Prophalyxis: Yes DVT Prophylaxis: Yes Oral Care with Chlorhexidine Gluconate {CHG}: Yes - Vent Settings MODE:: PRVC TIDAL VOLUME:: 400 RESP RATE:: 14 FIO2:: 100 PEEP:: 8 - Extremities/Vascular Does the Patient have a Central Venous Catheter?: Yes Insertion Site: Internal Jugular Vein Does the Patient need a Central Venous Catheter?: Yes (vascular access) Does the Patient have a Mishra Catheter?: Yes Does the Patient need a Mishra Catheter?: Yes Catheter Insertion Criteria: Need for accurate measurement of output in critically ill patient - Prophylaxis GI Prophylaxis GI: Pepsid - Prophylaxis DVT Prophylaxis DVT: Lovenox, SCDs Assessment/Plan - Assessment and Plan (Free Text) Assessment: 51F POD#3 s/p RLL wedge resection, intubated/sedated, continuing to require mech vent, awake, alert. Plan: Neuro Awake Alert Sedated- Fentanyl drip, Propofol drip, Versed drip, Ativan drip Cont home meds: Zoloft, Xanax- d/c'd, Keppra Insomnia- Xanax 2mg HS Seizure precautions Monitor CVS Epinephrine once Propofol once ASA Plavix Monitor Pulm POD#3 s/p RLL wedge resection ABG pH 7.37 O2 53, CO2 59, HCO3 30.8 Lasix drip Intubated ON mech vent protective lung protocol Duonebs SOlu-medrol CXR - Increasing hazy confluent opacities throughout both lungs with possible bilateral pleural effusions. FU path Pulm following Nephro Hypokalemia- resolved Hyperphosphatemia- Phos 5.1 Spironolactone- held Monitor GI No abdominal pain Distention increased OGT in place - to suction Tube feeds held Probiotic Lactulose HS Zofran NS@50 Morphine Dilaudid Gen surg following- SBO mgmt as per surgery Mishra in place MOnitor UOP Heme Hgb 8.6 from 8.4 Hct 27.1 from 25.2 Monitor Endo Sugars WNL Monitor MSK Monitor for skin break down ID Repeat Urine cx - yeast sp Leukocytosis 13.6 Afebrile over last 24H Cipro Fluconazole started Tylenol PRN ID following- ordered multiple labs/cultures etc for tissue specimen GI/DVT ppx Pepcid SCDs Lovenox Dispo: Cont ICU care On mech vent Tissue bx w/interstitial pneumonitis late stage, organizing PNA as per path- awaiting offical report DW attending - Date & Time Date: 11/20/16 Time: 07:00 <Wendy Michael - Last Filed: 11/20/16 18:01> CCU Objective - Vital Signs / Intake & Output Vital Signs (Last 4 hours): Vital Signs Temp Pulse Resp BP Pulse Ox 11/20/16 17:00 107 H 13 92 L 11/20/16 16:25 114 H 16 104/57 L 90 L 11/20/16 16:09 117 H 13 100/68 88 L 02/03/17 16:00 97.2 F L 116 H 14 89 L 11/20/16 15:09 123 H 15 93/59 L 88 L 11/20/16 15:00 128 H 23 85 L 11/20/16 14:10 122 H 19 103/53 L 88 L 11/20/16 14:05 122 H 19 88 L 11/20/16 14:00 123 H 18 88 L Intake and Output (Last 8hrs): Intake & Output 11/20/16 11/20/16 11/20/16 06:59 14:59 22:59 Intake Total 570 749 218.4 Output Total 520 300 Balance 50 449 218.4 Intake: Intake, IV Amount 330 609 218.4 Right Medial Port 280 308 67.4 Internal Jugular Right Distal Port 50 253 127 Internal Jugular Right Proximal Port 48 24 Internal Jugular Tube Feeding 240 90 Other 50 Output: Chest Tube Drainage 120 Right Mid-Axillary Chest 120 Urine 400 300 Urethral (Mishra) 400 300 Other: # Bowel Movements 1 - Medications Active Medications: Active Medications Generic Name Dose Route Start Last Admin Trade Name Freq PRN Reason Stop Dose Admin Acetaminophen 650 mg 11/08/16 20:26 Tylenol 325mg Tab PO Q6 PRN Fever >100.4 F Albuterol/Ipratropium 3 ml 11/19/16 02:00 11/20/16 13:16 Duoneb 3 Mg/0.5 Mg (3 Ml) Ud INH 3 ml RQ6 BALBINA Administration Alprazolam 2 mg 11/19/16 22:00 11/19/16 21:17 Xanax PO 2 mg HS BALBINA Administration Aspirin 81 mg 11/07/16 10:00 11/20/16 10:09 Aspirin Chewable PO 81 mg DAILY BALBINA Administration Clopidogrel Bisulfate 75 mg 11/07/16 10:00 11/08/16 10:24 Plavix PO 75 mg DAILY BALBINA Administration Enoxaparin Sodium 40 mg 11/07/16 10:00 11/20/16 10:08 Lovenox SC 40 mg DAILY BALBINA Administration Famotidine 20 mg 11/17/16 10:15 11/20/16 10:09 Pepcid IVP 20 mg BID BALBINA Administration Hydromorphone HCl 1 mg 11/19/16 14:38 11/20/16 14:51 Dilaudid IVP 1 mg Q3H PRN Administration Pain, severe (8-10) Ciprofloxacin 200 mls @ 133 mls/hr 11/14/16 14:00 11/20/16 14:29 Cipro 400mg/200ml Dsw IVPB 133 mls/hr Q12H BALBINA Administration Propofol 100 mls @ 2.01 mls/hr 11/17/16 20:19 11/20/16 14:44 Diprivan IV 12.06 mls/hr .Q24H PRN Administration TITRATE PER MD ORDER Protocol 5 MCG/KG/MIN Fentanyl Citrate 2,500 mcg/ 250 mls @ 70 mls/hr 11/19/16 10:35 11/20/16 16:10 Sodium Chloride IV 33.5 mls/hr .Q3H35M BALBINA Administration Protocol 10 MCG/KG/HR Fluconazole 100 mls @ 100 mls/hr 11/20/16 10:00 11/20/16 10:09 Diflucan Iv 200 Mg/100 Ml Ns IVPB 100 mls/hr DAILY BALBINA Administration Furosemide 100 mg/ Sodium 100 mls @ 10 mls/hr 11/20/16 10:00 11/20/16 11:33 Chloride IV 10 mls/hr .Q10H BALBINA Administration Protocol 10 MG/HR Midazolam HCl 100 mg/ Sodium 100 mls @ 1.4 mls/hr 11/20/16 15:00 11/20/16 16:07 Chloride IV 1.4 mls/hr .Q24H PRN Administration FOLLOW PROTOCOL Protocol 0.02 MG/KG/HR Ketorolac Tromethamine 30 mg 11/19/16 12:00 11/20/16 11:32 Toradol IVP 30 mg Q6 BALBINA Administration Lactulose 20 gm 11/20/16 09:28 Enulose PO HS PRN Constipation Levetiracetam 500 mg 11/09/16 18:00 11/20/16 10:09 Keppra PO 500 mg BID BALBINA Administration Methylprednisolone 80 mg 11/20/16 14:16 11/20/16 14:28 Solu-Medrol IV 80 mg Q6 BALBINA Administration - Patient Studies Lab Studies: Lab Studies 11/20/16 11/20/16 11/20/16 Range/Units 16:34 11:30 06:19 WBC 13.6 H (4.8-10.8) K/uL RBC 2.99 L (3.80-5.20) Mil/uL Hgb 8.6 L (11.0-16.0) g/dL Hct 27.1 L (34.0-47.0) % MCV 90.7 (81.0-99.0) fL MCH 28.7 (27.0-31.0) pg MCHC 31.6 L (33.0-37.0) g/dL RDW 15.8 H (11.5-14.5) % Plt Count 314 (130-400) K/uL MPV 7.3 (7.2-11.7) fL Neut % (Auto) 85.6 H (50.0-75.0) % Lymph % (Auto) 8.3 L (20.0-40.0) % Routt % (Auto) 5.9 (0.0-10.0) % Eos % (Auto) 0.1 (0.0-4.0) % Baso % (Auto) 0.1 (0.0-2.0) % Neut # 11.7 H (1.8-7.0) K/uL Lymph # 1.1 (1.0-4.3) K/uL Routt # 0.8 (0.0-0.8) K/uL Eos # 0.0 (0.0-0.7) K/uL Baso # 0.0 (0.0-0.2) K/uL Neutrophils % (Manual) 84 H (50-75) % Lymphocytes % (Manual) 13 L (20-40) % Monocytes % (Manual) 3 (0-10) % Platelet Estimate Normal (NORMAL) Hypochromasia (manual) Moderate Poikilocytosis (manual Slight Anisocytosis (manual) Slight Microcytosis (manual) Slight Macrocytosis (manual) Slight Puncture Site pCO2 (35-45) mm/Hg pO2 (80-100) mm/Hg HCO3 (21-28) mmol/L ABG pH (7.35-7.45) ABG Total CO2 (22-28) mmol/L ABG O2 Saturation (95-98) % ABG Base Excess (-2.0-3.0) mmol/L ABG Hemoglobin (11.7-17.4) g/dL ABG Carboxyhemoglobin (0.5-1.5) % POC ABG HHb (Measured) (0.0-5.0) % ABG Methemoglobin (0.0-3.0) % Reese Test A-a O2 Difference mm/Hg Respiratory Index Hgb O2 Saturation (95.0-98.0) % Mechanical Rate FiO2 % Tidal Volume PEEP Sodium 138 (132-148) mmol/L Potassium 4.3 (3.6-5.2) mmol/L Chloride 99 (98-107) mmol/L Carbon Dioxide 34 H (22-30) mmol/L Anion Gap 9 L (10-20) BUN 13 (7-17) mg/dL Creatinine 0.6 L (0.7-1.2) MG/DL Est GFR ( Amer) > 60 Est GFR (Non-Af Amer) > 60 Random Glucose 100 (65-105) mg/dL Calcium 8.2 L (8.6-10.4) mg/dl Phosphorus 5.1 H (2.5-4.5) mg/dL Magnesium 2.0 (1.6-2.3) mg/dL Total Bilirubin 0.6 (0.2-1.3) mg/dL AST 20 (14-36) U/L ALT 28 (9-52) U/L Alkaline Phosphatase 132 H (38-126) U/L Total Protein 5.8 L (6.3-8.3) g/dL Albumin 2.7 L D (3.5-5.0) g/dL Globulin 3.1 (2.2-3.9) gm/dL Albumin/Globulin Ratio 0.9 L (1.0-2.1) Procalcitonin 0.09 L (0.19-0.49) NG/ML Complement C3 75.0 L (88.0-165.0) mg/dL Complement C4 22.1 (14.0-44.0) mg/dL 11/20/16 Range/Units 05:21 WBC (4.8-10.8) K/uL RBC (3.80-5.20) Mil/uL Hgb (11.0-16.0) g/dL Hct (34.0-47.0) % MCV (81.0-99.0) fL MCH (27.0-31.0) pg MCHC (33.0-37.0) g/dL RDW (11.5-14.5) % Plt Count (130-400) K/uL MPV (7.2-11.7) fL Neut % (Auto) (50.0-75.0) % Lymph % (Auto) (20.0-40.0) % Routt % (Auto) (0.0-10.0) % Eos % (Auto) (0.0-4.0) % Baso % (Auto) (0.0-2.0) % Neut # (1.8-7.0) K/uL Lymph # (1.0-4.3) K/uL Routt # (0.0-0.8) K/uL Eos # (0.0-0.7) K/uL Baso # (0.0-0.2) K/uL Neutrophils % (Manual) (50-75) % Lymphocytes % (Manual) (20-40) % Monocytes % (Manual) (0-10) % Platelet Estimate (NORMAL) Hypochromasia (manual) Poikilocytosis (manual Anisocytosis (manual) Microcytosis (manual) Macrocytosis (manual) Puncture Site Rr pCO2 59 H (35-45) mm/Hg pO2 53 L (80-100) mm/Hg HCO3 30.8 H (21-28) mmol/L ABG pH 7.37 (7.35-7.45) ABG Total CO2 35.9 H (22-28) mmol/L ABG O2 Saturation 88.7 L (95-98) % ABG Base Excess 7.7 H (-2.0-3.0) mmol/L ABG Hemoglobin 8.6 L (11.7-17.4) g/dL ABG Carboxyhemoglobin 2.6 H (0.5-1.5) % POC ABG HHb (Measured) 10.9 H (0.0-5.0) % ABG Methemoglobin 1.2 (0.0-3.0) % Reese Test Pos A-a O2 Difference 586.0 mm/Hg Respiratory Index 11.1 Hgb O2 Saturation 85.4 L (95.0-98.0) % Mechanical Rate 14 FiO2 100.0 % Tidal Volume 400 PEEP 8 Sodium (132-148) mmol/L Potassium (3.6-5.2) mmol/L Chloride (98-107) mmol/L Carbon Dioxide (22-30) mmol/L Anion Gap (10-20) BUN (7-17) mg/dL Creatinine (0.7-1.2) MG/DL Est GFR ( Amer) Est GFR (Non-Af Amer) Random Glucose (65-105) mg/dL Calcium (8.6-10.4) mg/dl Phosphorus (2.5-4.5) mg/dL Magnesium (1.6-2.3) mg/dL Total Bilirubin (0.2-1.3) mg/dL AST (14-36) U/L ALT (9-52) U/L Alkaline Phosphatase (38-126) U/L Total Protein (6.3-8.3) g/dL Albumin (3.5-5.0) g/dL Globulin (2.2-3.9) gm/dL Albumin/Globulin Ratio (1.0-2.1) Procalcitonin (0.19-0.49) NG/ML Complement C3 (88.0-165.0) mg/dL Complement C4 (14.0-44.0) mg/dL Laboratory Results - last 24 hr 11/20/16 11/20/16 11/20/16 05:21 06:19 11:30 WBC 13.6 H RBC 2.99 L Hgb 8.6 L Hct 27.1 L MCV 90.7 MCH 28.7 MCHC 31.6 L RDW 15.8 H Plt Count 314 MPV 7.3 Neut % (Auto) 85.6 H Lymph % (Auto) 8.3 L Routt % (Auto) 5.9 Eos % (Auto) 0.1 Baso % (Auto) 0.1 Neut # 11.7 H Lymph # 1.1 Routt # 0.8 Eos # 0.0 Baso # 0.0 Neutrophils % (Manual) 84 H Lymphocytes % (Manual) 13 L Monocytes % (Manual) 3 Platelet Estimate Normal Hypochromasia (manual) Moderate Poikilocytosis (manual Slight Anisocytosis (manual) Slight Microcytosis (manual) Slight Macrocytosis (manual) Slight Puncture Site Rr pCO2 59 H pO2 53 L HCO3 30.8 H ABG pH 7.37 ABG Total CO2 35.9 H ABG O2 Saturation 88.7 L ABG Base Excess 7.7 H ABG Hemoglobin 8.6 L ABG Carboxyhemoglobin 2.6 H POC ABG HHb (Measured) 10.9 H ABG Methemoglobin 1.2 Reese Test Pos A-a O2 Difference 586.0 Respiratory Index 11.1 Hgb O2 Saturation 85.4 L Mechanical Rate 14 FiO2 100.0 Tidal Volume 400 PEEP 8 Sodium 138 Potassium 4.3 Chloride 99 Carbon Dioxide 34 H Anion Gap 9 L BUN 13 Creatinine 0.6 L Est GFR ( Amer) > 60 Est GFR (Non-Af Amer) > 60 Random Glucose 100 Calcium 8.2 L Phosphorus 5.1 H Magnesium 2.0 Total Bilirubin 0.6 AST 20 ALT 28 Alkaline Phosphatase 132 H Total Protein 5.8 L Albumin 2.7 L D Globulin 3.1 Albumin/Globulin Ratio 0.9 L Procalcitonin 0.09 L Complement C3 Complement C4 11/20/16 16:34 WBC RBC Hgb Hct MCV MCH MCHC RDW Plt Count MPV Neut % (Auto) Lymph % (Auto) [place] % (Auto) Eos % (Auto) Baso % (Auto) Neut # Lymph # [place] # Eos # Baso # Neutrophils % (Manual) Lymphocytes % (Manual) Monocytes % (Manual) Platelet Estimate Hypochromasia (manual) Poikilocytosis (manual Anisocytosis (manual) Microcytosis (manual) Macrocytosis (manual) Puncture Site pCO2 pO2 HCO3 ABG pH ABG Total CO2 ABG O2 Saturation ABG Base Excess ABG Hemoglobin ABG Carboxyhemoglobin POC ABG HHb (Measured) ABG Methemoglobin Reese Test A-a O2 Difference Respiratory Index Hgb O2 Saturation Mechanical Rate FiO2 Tidal Volume PEEP Sodium Potassium Chloride Carbon Dioxide Anion Gap BUN Creatinine Est GFR ( Amer) Est GFR (Non-Af Amer) Random Glucose Calcium Phosphorus Magnesium Total Bilirubin AST ALT Alkaline Phosphatase Total Protein Albumin Globulin Albumin/Globulin Ratio Procalcitonin Complement C3 75.0 L Complement C4 22.1 Attending/Attestation - Attestation I have personally seen and examined this patient.: Yes I have fully participated in the care of the patient.: Yes I have reviewed all pertinent clinical information: Yes Notes (Text): 11/20/16 17:56 Patient seen and examined, this morning very sob, using accessory muscles despite 100% fio2 and peep 8. x-ray looks overloaded vs ards. Lasix drip started, increased solumedrol to 80 mg q6h, added more sedation, increased peep to 12, patient breathing in the low 20's, not fighting the ventilator, but added more sedation. PaO2 only 54. x-ray shows small penumothorax and new pleural effusions bilaterally, unable to scan her since she desaturates into low 80% and goes more tachycardic with movement. Positive intake. Called [facility] for possible transfer for ecmo, but unable to speak to a physician so far.
[2016-11-20] MEDS: Midazolam 50 mg/10 ml 100 MG in Sodium Chloride 0.9% 80 ML IV PRN (16:07)
[2016-11-21] MEDS: MethylPREDNISolone 40 mg Vial IV SCH ×5 (00:10→23:30)
[2016-11-21] MEDS: Ciprofloxacin 400mg/200ml D5W 200 ML IVPB SCH (01:00)
[2016-11-21] MEDS: Albuterol-Ipratrop 3 mg / 0.5 (3 ml) UD INH SCH ×4 (01:15→19:44)
[2016-11-21 05:43] LABS: ABG ALLEN TEST POS; ABG MECHANICAL RATE 14; ARTERIAL BLOOD HGB O2 SAT 93.1 % (95.0-98.0); ATERIAL BLOOD GAS PEEP 12; DRAW SITE LRAD; HHB 3.8 % (0.0-5.0); METHEMOGLOBIN 1.1 % (0.0-3.0)
[2016-11-21] MEDS: Furosemide 100 MG in Sodium Chloride 0.9% 90 ML IV SCH ×4 (05:46→19:32)
[2016-11-21 06:38] LABS: BASO % 0.1 % (0.0-2.0); HEMATOCRIT 24.4 % (34.0-47.0); LYMPH # 0.6 K/uL (1.0-4.3); LYMPH % 5.1 % (20.0-40.0); MEAN CELL VOLUME 90.3 fL (81.0-99.0); MEAN CORPUSCULAR HEMOGLOBIN 28.6 pg (27.0-31.0); MEAN CORPUSCULAR HGB CONC 31.7 g/dL (33.0-37.0); MEAN PLATELET VOLUME 7.7 fL (7.2-11.7); MONO # 0.2 K/uL (0.0-0.8); MONO % 1.6 % (0.0-10.0); PLATELET COUNT 262 K/uL (130-400); RED CELL DISTRIBUTION WIDTH 15.8 % (11.5-14.5); WHITE BLOOD COUNT 12.1 K/uL (4.8-10.8)
[2016-11-21 06:59] LABS: CHLORIDE 97 mmol/L (98-107)
[2016-11-21 07:00] LABS: POTASSIUM 4.1 mmol/L (3.6-5.2); SODIUM 139 mmol/L (132-148)
[2016-11-21 07:02] LABS: ALB/GLOB RATIO 0.8 (1.0-2.1); ALKALINE PHOSPHATASE 111 U/L (38-126); ALT/SGPT 29 U/L (9-52); AST/SGOT 20 U/L (14-36); BILIRUBIN,TOTAL 0.5 mg/dL (0.2-1.3); BLOOD UREA NITROGEN 18 mg/dL (7-17); CARBON DIOXIDE 35 mmol/L (22-30); GFR AFRICAN-AMERICAN > 60; GLUCOSE,RANDOM 93 mg/dL (65-105); TOTAL PROTEIN 5.5 g/dL (6.3-8.3)
[2016-11-21 07:03] LABS: CALCIUM 7.9 mg/dl (8.6-10.4); MAGNESIUM 1.4 mg/dL (1.6-2.3); PHOSPHOROUS 6.9 mg/dL (2.5-4.5)
[2016-11-21 08:34] LABS: NEUTROPHIL 93 % (50-75); TOTAL CELLS COUNTED 100
[2016-11-21 08:36] LABS: LARGE PLATELETS PRESENT
[2016-11-21 08:37] LABS: SPHEROCYTES SLIGHT
[2016-11-21] MEDS ORDERED: levETIRAcetam 500 MG in Sodium Chloride 0.9% 100 ML IVPB SCH (08:45)
[2016-11-21] MEDS: Fluconazole IV 200mg/100 ml NS 100 ML IVPB SCH (10:09)
[2016-11-21] MEDS: Enoxaparin 40 mg Syringe SC SCH (10:10)
[2016-11-21] MEDS: levETIRAcetam 500 MG in Sodium Chloride 0.9% 100 ML IVPB SCH ×2 (10:31→22:45)
--- NOTE | 2016-11-21 10:37 | CP.PCM.PN ---
Subjective - Date & Time of Evaluation Date of Evaluation: 11/21/16 Time of Evaluation: 07:00 - Subjective Subjective: Patient seen and examined. Remains intubated on ventilatory support FiO2 85% with PEEP of 12 and saturation 90-92% Awake and responsive Tolerating feeding Objective - Vital Signs/Intake and Output Vital Signs (last 24 hours): Temp Pulse Resp BP Pulse Ox 98.4 F 85 12 90/56 L 100 11/21/16 04:00 11/21/16 07:00 11/21/16 07:00 11/21/16 10:07 11/21/16 07:00 Intake and Output: 11/21/16 11/21/16 06:59 18:59 Intake Total 682.3 56.9 Output Total 1826 166 Balance -1143.7 -109.1 - Medications Medications: Current Medications Albuterol/Ipratropium (Duoneb 3 Mg/0.5 Mg (3 Ml) Ud) 3 ml INH RQ6 [facility] Last Admin: 11/21/16 08:08 Dose: 3 ml Aspirin (Aspirin Chewable) 81 mg PO DAILY [facility] Last Admin: 11/21/16 10:10 Dose: 81 mg Clopidogrel Bisulfate (Plavix) 75 mg PO DAILY [facility] Last Admin: 11/21/16 10:10 Dose: 75 mg Enoxaparin Sodium (Lovenox) 40 mg SC DAILY [facility] Last Admin: 11/21/16 10:10 Dose: 40 mg Famotidine (Pepcid) 20 mg IVP BID [facility] Last Admin: 11/21/16 10:17 Dose: 20 mg Hydromorphone HCl (Dilaudid) 1 mg IVP Q3H PRN PRN Reason: Pain, severe (8-10) Last Admin: 11/20/16 14:51 Dose: 1 mg Ciprofloxacin (Cipro 400mg/200ml Dsw) 200 mls @ 133 mls/hr IVPB Q12H [facility] Last Admin: 11/21/16 01:00 Dose: 133 mls/hr Propofol (Diprivan) 100 mls @ 2.01 mls/hr IV .Q24H PRN; Protocol; 5 MCG/KG/MIN PRN Reason: TITRATE PER MD ORDER Last Admin: 11/21/16 09:13 Dose: 8.04 mls/hr Fentanyl Citrate 2,500 mcg/ (Sodium Chloride) 250 mls @ 70 mls/hr IV .Q3H35M [facility]; 10 MCG/KG/HR PRN Reason: Protocol Last Admin: 11/21/16 05:46 Dose: Not Given Fluconazole (Diflucan Iv 200 Mg/100 Ml Ns) 100 mls @ 100 mls/hr IVPB DAILY [facility] Last Admin: 11/21/16 10:09 Dose: 100 mls/hr Furosemide 100 mg/ Sodium (Chloride) 100 mls @ 10 mls/hr IV .Q10H [facility]; 10 MG/HR PRN Reason: Protocol Last Admin: 11/21/16 10:07 Dose: 10 mls/hr Midazolam HCl 100 mg/ Sodium (Chloride) 100 mls @ 1.4 mls/hr IV .Q24H PRN; Protocol; 0.02 MG/KG/HR PRN Reason: FOLLOW PROTOCOL Last Admin: 11/20/16 16:07 Dose: 1.4 mls/hr Levetiracetam 500 mg/ Sodium (Chloride) 105 mls @ 420 mls/hr IVPB Q12H [facility] Last Admin: 11/21/16 10:31 Dose: 420 mls/hr Lactulose (Enulose) 20 gm PO HS PRN PRN Reason: Constipation Methylprednisolone (Solu-Medrol) 80 mg IV Q6 [facility] Last Admin: 11/21/16 05:05 Dose: 80 mg - Labs Labs: 11/21/16 06:29 11/21/16 06:29 PT 12.3 SECONDS (9.7-12.2) H 11/16/16 06:24 INR 1.1 11/16/16 06:24 APTT 32 SECONDS (21-34) 11/16/16 06:24 - Head Exam Head Exam: ATRAUMATIC, NORMOCEPHALIC - Eye Exam Eye Exam: Normal appearance - ENT Exam ENT Exam: Mucous Membranes Moist - Neck Exam Neck Exam: Normal Inspection - Respiratory Exam Respiratory Exam: Rales - Cardiovascular Exam Cardiovascular Exam: REGULAR RHYTHM - GI/Abdominal Exam GI & Abdominal Exam: Soft, Normal Bowel Sounds - Extremities Exam Extremities Exam: Normal Inspection, Pedal Edema Assessment and Plan (1) Respiratory insufficiency Assessment & Plan: Continue ventilatory support Reduce FiO2 as tolerated Wean as tolerated Continue IV steroids and Lasix drip Chest x-ray significant improvement Status: Acute (2) Bilateral pneumonia Status: Acute (3) Small bowel obstruction Status: Acute
--- NOTE | 2016-11-21 13:00 | RAD ---
HISTORY: Chest tube COMPARISON: Comparison is made to 11/20/2016 FINDINGS: LUNGS: Interval significant improvement in the lungs since the previous exam. Residual reticular opacities are seen. The ET tube seen at appropriate position PLEURA: Blunting of both costophrenic angles. CARDIOVASCULAR: Normal. OSSEOUS STRUCTURES: No significant abnormalities. VISUALIZED UPPER ABDOMEN: The NG tube seen extending to the abdomen. OTHER FINDINGS: Right jugular central line is seen in place. IMPRESSION: Interval improvement in the lungs since the previous exam. Appropriate position of the support devices.
--- NOTE | 2016-11-21 15:27 | CP.CCUPN ---
CCU Subjective - Physician Review Events Since Last Encounter (Free Text): 11/21/16 15:26 patient seen and examined in am, looks much better today, no accesory use of muscle and states that she can breathe well (she writes to communicate), no tachycardia. ros limited given intubation, hungry pe: bp 90/55 mmhg, hr 80 bpm, rr 22, o2 93 % on 12 peep and 85% fio2, afebrile aaox3, writes to communicate, follows commands, very awake despite strong sedatives s1, s2 rrr abdomen soft, non tender able to move all extremites no focal neurological abnormalities skin intact a/p: pulmonary fibrosis/ILD exacerbation: not infectious, procalcitonin negative, d/ c ciprofloxacin and fluconazole, off bactrim for a few days steroids increased yesterday to 80 mg q6h of solumedrol, continue lasix drip, but decrease to 5 mg/hr given bp being inthe 90's, Pao2 74 today, previous values in the 50's, CT to suction, minimal drainage k 4.2, mg 1/4, replace mg given lasix drip, UO 3656 in 24 h, negative balance 1843 mL wbc slight increase, but solumedrol increased yesterday. CCU Objective - Vital Signs / Intake & Output Vital Signs (Last 4 hours): Vital Signs Temp Pulse Resp BP Pulse Ox 11/21/16 14:00 79 23 94/61 L 92 L 11/21/16 13:00 82 24 90/52 L 92 L 11/21/16 12:00 97.2 F L 83 26 H 90/54 L 92 L Intake and Output (Last 8hrs): Intake & Output 11/21/16 11/21/16 11/21/16 06:59 14:59 22:59 Intake Total 455.2 681.2 Output Total 1328 1111 Balance -872.8 -429.8 Weight 154 lb 9 oz Intake: Intake, IV Amount 455.2 601.2 Right Forearm 200 Right Internal Jugular 268.0 268.0 Right Medial Port 11.2 61.4 Internal Jugular Right Distal Port 80 19.8 Internal Jugular Right Proximal Port 96 52 Internal Jugular Tube Feeding 80 Output: Gastric Amount 50 Stomach 50 Urine 1328 1061 Urethral (Mishra) 1328 1061 - Physical Exam Head: Positive for: Atraumatic, Normocephalic Pupils: Positive for: PERRL Extroacular Muscles: Positive for: EOMI Conjunctiva: Positive for: Normal Ears: Positive for: Normal Mouth: Positive for: Moist Mucous Membranes, Other (ET & OG tubes in place) Pharnyx: Positive for: Normal Nose (External): Positive for: Atraumatic Neck: Positive for: Normal Range of Motion, Trachea Midline, Other (Right IJ (- ) erythema/drainage) Respiratory/Chest: Positive for: Good Air Exchange, Decreased Breath Sounds, Rhonchi (diffuse). Negative for: Clear to Auscultation (coarse BS b/l), Respiratory Distress, Accessory Muscle Use, Wheezes, Rales, Retracting Cardiovascular: Positive for: Normal S1, S2, Peripheal Pulses Present, Tachycardic. Negative for: Murmurs, Rub, Gallop Abdomen: Negative for: Tenderness, Distention, Normal Bowel Sounds (hypoactive) , Peritoneal Signs, Rebound, Guarding Upper Extremity: Positive for: Normal Inspection. Negative for: Cyanosis, Edema Lower Extremity: Positive for: Normal Inspection. Negative for: Edema (B/L, minimal) Neurological: Positive for: Other (intubated/sedated). Negative for: GCS=15, Speech Normal Skin: Positive for: Warm, Dry, Normal Color. Negative for: Rashes Psychiatric: Positive for: Alert - Medications Active Medications: Active Medications Generic Name Dose Route Start Last Admin Trade Name Freq PRN Reason Stop Dose Admin Albuterol/Ipratropium 3 ml 11/19/16 02:00 11/21/16 13:32 Duoneb 3 Mg/0.5 Mg (3 Ml) Ud INH 3 ml RQ6 [facility] Administration Aspirin 81 mg 11/07/16 10:00 11/21/16 10:10 Aspirin Chewable PO 81 mg DAILY [facility] Administration Clopidogrel Bisulfate 75 mg 11/07/16 10:00 11/21/16 10:10 Plavix PO 75 mg DAILY [facility] Administration Enoxaparin Sodium 40 mg 11/07/16 10:00 11/21/16 10:10 Lovenox SC 40 mg DAILY [facility] Administration Famotidine 20 mg 11/17/16 10:15 11/21/16 10:17 Pepcid IVP 20 mg BID [facility] Administration Hydromorphone HCl 1 mg 11/19/16 14:38 11/20/16 14:51 Dilaudid IVP 1 mg Q3H PRN Administration Pain, severe (8-10) Propofol 100 mls @ 2.01 mls/hr 11/17/16 20:19 11/21/16 09:13 Diprivan IV 8.04 mls/hr .Q24H PRN Administration TITRATE PER MD ORDER Protocol 5 MCG/KG/MIN Fentanyl Citrate 2,500 mcg/ 250 mls @ 70 mls/hr 11/19/16 10:35 11/21/16 10:59 Sodium Chloride IV 33.5 mls/hr .Q3H35M [facility] Administration Protocol 10 MCG/KG/HR Furosemide 100 mg/ Sodium 100 mls @ 10 mls/hr 11/20/16 10:00 11/21/16 10:07 Chloride IV 10 mls/hr .Q10H [facility] Administration Protocol 10 MG/HR Midazolam HCl 100 mg/ Sodium 100 mls @ 1.4 mls/hr 11/20/16 15:00 11/20/16 16:07 Chloride IV 1.4 mls/hr .Q24H PRN Administration FOLLOW PROTOCOL Protocol 0.02 MG/KG/HR Levetiracetam 500 mg/ Sodium 105 mls @ 420 mls/hr 11/21/16 11:00 11/21/16 10:31 Chloride IVPB 420 mls/hr Q12H [facility] Administration Lactulose 20 gm 11/20/16 09:28 Enulose PO HS PRN Constipation Methylprednisolone 80 mg 11/20/16 14:16 11/21/16 12:04 Solu-Medrol IV 80 mg Q6 [facility] Administration - Patient Studies Lab Studies: Lab Studies 11/21/16 11/21/16 11/20/16 Range/Units 06:29 05:22 16:34 WBC 12.1 H (4.8-10.8) K/uL RBC 2.70 L (3.80-5.20) Mil/uL Hgb 7.7 L (11.0-16.0) g/dL Hct 24.4 L (34.0-47.0) % MCV 90.3 (81.0-99.0) fL MCH 28.6 (27.0-31.0) pg MCHC 31.7 L (33.0-37.0) g/dL RDW 15.8 H (11.5-14.5) % Plt Count 262 (130-400) K/uL MPV 7.7 (7.2-11.7) fL Neut % (Auto) 93.2 H (50.0-75.0) % Lymph % (Auto) 5.1 L (20.0-40.0) % Pickett % (Auto) 1.6 (0.0-10.0) % Eos % (Auto) 0.0 (0.0-4.0) % Baso % (Auto) 0.1 (0.0-2.0) % Neut # 11.2 H (1.8-7.0) K/uL Lymph # 0.6 L (1.0-4.3) K/uL Pickett # 0.2 (0.0-0.8) K/uL Eos # 0.0 (0.0-0.7) K/uL Baso # 0.0 (0.0-0.2) K/uL Neutrophils % (Manual) 93 H (50-75) % Band Neutrophils % 1 (0-2) % Lymphocytes % (Manual) 3 L (20-40) % Monocytes % (Manual) 3 (0-10) % Hypersegmented Polys Present Toxic Granulation Present Platelet Estimate Normal (NORMAL) Large Platelets Present Polychromasia Slight Hypochromasia (manual) Slight Anisocytosis (manual) Slight Spherocytes Slight Puncture Site Lrad pCO2 62 H (35-45) mm/Hg pO2 74 L (80-100) mm/Hg HCO3 32.8 H (21-28) mmol/L ABG pH 7.38 (7.35-7.45) ABG Total CO2 38.6 H (22-28) mmol/L ABG O2 Saturation 96.1 (95-98) % ABG Base Excess 10.2 H (-2.0-3.0) mmol/L ABG Hemoglobin 8.4 L (11.7-17.4) g/dL ABG Carboxyhemoglobin 2.0 H (0.5-1.5) % POC ABG HHb (Measured) 3.8 (0.0-5.0) % ABG Methemoglobin 1.1 (0.0-3.0) % Reese Test Pos A-a O2 Difference 562.0 mm/Hg Respiratory Index 7.6 Hgb O2 Saturation 93.1 L (95.0-98.0) % Mechanical Rate 14 FiO2 100.0 % Tidal Volume 450 PEEP 12 Sodium 139 (132-148) mmol/L Potassium 4.1 (3.6-5.2) mmol/L Chloride 97 L (98-107) mmol/L Carbon Dioxide 35 H (22-30) mmol/L Anion Gap 11 (10-20) BUN 18 H (7-17) mg/dL Creatinine 0.8 (0.7-1.2) MG/DL Est GFR ( Amer) > 60 Est GFR (Non-Af Amer) > 60 Random Glucose 93 (65-105) mg/dL Calcium 7.9 L (8.6-10.4) mg/dl Phosphorus 6.9 H (2.5-4.5) mg/dL Magnesium 1.4 L (1.6-2.3) mg/dL Total Bilirubin 0.5 (0.2-1.3) mg/dL AST 20 (14-36) U/L ALT 29 (9-52) U/L Alkaline Phosphatase 111 (38-126) U/L Total Protein 5.5 L (6.3-8.3) g/dL Albumin 2.5 L (3.5-5.0) g/dL Globulin 3.0 (2.2-3.9) gm/dL Albumin/Globulin Ratio 0.8 L (1.0-2.1) Complement C3 75.0 L (88.0-165.0) mg/dL Complement C4 22.1 (14.0-44.0) mg/dL CMV Specimen Source (()) CMV DNA Quant PCR (()) IU/mL CMV Qnt PCR log IU/mL (()) Log IU/mL 11/17/16 Range/Units 08:58 WBC (4.8-10.8) K/uL RBC (3.80-5.20) Mil/uL Hgb (11.0-16.0) g/dL Hct (34.0-47.0) % MCV (81.0-99.0) fL MCH (27.0-31.0) pg MCHC (33.0-37.0) g/dL RDW (11.5-14.5) % Plt Count (130-400) K/uL MPV (7.2-11.7) fL Neut % (Auto) (50.0-75.0) % Lymph % (Auto) (20.0-40.0) % Pickett % (Auto) (0.0-10.0) % Eos % (Auto) (0.0-4.0) % Baso % (Auto) (0.0-2.0) % Neut # (1.8-7.0) K/uL Lymph # (1.0-4.3) K/uL Pickett # (0.0-0.8) K/uL Eos # (0.0-0.7) K/uL Baso # (0.0-0.2) K/uL Neutrophils % (Manual) (50-75) % Band Neutrophils % (0-2) % Lymphocytes % (Manual) (20-40) % Monocytes % (Manual) (0-10) % Hypersegmented Polys Toxic Granulation Platelet Estimate (NORMAL) Large Platelets Polychromasia Hypochromasia (manual) Anisocytosis (manual) Spherocytes Puncture Site pCO2 (35-45) mm/Hg pO2 (80-100) mm/Hg HCO3 (21-28) mmol/L ABG pH (7.35-7.45) ABG Total CO2 (22-28) mmol/L ABG O2 Saturation (95-98) % ABG Base Excess (-2.0-3.0) mmol/L ABG Hemoglobin (11.7-17.4) g/dL ABG Carboxyhemoglobin (0.5-1.5) % POC ABG HHb (Measured) (0.0-5.0) % ABG Methemoglobin (0.0-3.0) % Reese Test A-a O2 Difference mm/Hg Respiratory Index Hgb O2 Saturation (95.0-98.0) % Mechanical Rate FiO2 % Tidal Volume PEEP Sodium (132-148) mmol/L Potassium (3.6-5.2) mmol/L Chloride (98-107) mmol/L Carbon Dioxide (22-30) mmol/L Anion Gap (10-20) BUN (7-17) mg/dL Creatinine (0.7-1.2) MG/DL Est GFR ( Amer) Est GFR (Non-Af Amer) Random Glucose (65-105) mg/dL Calcium (8.6-10.4) mg/dl Phosphorus (2.5-4.5) mg/dL Magnesium (1.6-2.3) mg/dL Total Bilirubin (0.2-1.3) mg/dL AST (14-36) U/L ALT (9-52) U/L Alkaline Phosphatase (38-126) U/L Total Protein (6.3-8.3) g/dL Albumin (3.5-5.0) g/dL Globulin (2.2-3.9) gm/dL Albumin/Globulin Ratio (1.0-2.1) Complement C3 (88.0-165.0) mg/dL Complement C4 (14.0-44.0) mg/dL CMV Specimen Source Plasma (()) CMV DNA Quant PCR <200 (()) IU/mL CMV Qnt PCR log IU/mL <2.30 (()) Log IU/mL Laboratory Results - last 24 hr 11/17/16 11/20/16 11/21/16 08:58 16:34 05:22 WBC RBC Hgb Hct MCV MCH MCHC RDW Plt Count MPV Neut % (Auto) Lymph % (Auto) Pickett % (Auto) Eos % (Auto) Baso % (Auto) Neut # Lymph # Pickett # Eos # Baso # Neutrophils % (Manual) Band Neutrophils % Lymphocytes % (Manual) Monocytes % (Manual) Hypersegmented Polys Toxic Granulation Platelet Estimate Large Platelets Polychromasia Hypochromasia (manual) Anisocytosis (manual) Spherocytes Puncture Site Lrad pCO2 62 H pO2 74 L HCO3 32.8 H ABG pH 7.38 ABG Total CO2 38.6 H ABG O2 Saturation 96.1 ABG Base Excess 10.2 H ABG Hemoglobin 8.4 L ABG Carboxyhemoglobin 2.0 H POC ABG HHb (Measured) 3.8 ABG Methemoglobin 1.1 Reese Test Pos A-a O2 Difference 562.0 Respiratory Index 7.6 Hgb O2 Saturation 93.1 L Mechanical Rate 14 FiO2 100.0 Tidal Volume 450 PEEP 12 Sodium Potassium Chloride Carbon Dioxide Anion Gap BUN Creatinine Est GFR ( Amer) Est GFR (Non-Af Amer) Random Glucose Calcium Phosphorus Magnesium Total Bilirubin AST ALT Alkaline Phosphatase Total Protein Albumin Globulin Albumin/Globulin Ratio Complement C3 75.0 L Complement C4 22.1 CMV Specimen Source Plasma CMV DNA Quant PCR <200 CMV Qnt PCR log IU/mL <2.30 11/21/16 06:29 WBC 12.1 H RBC 2.70 L Hgb 7.7 L Hct 24.4 L MCV 90.3 MCH 28.6 MCHC 31.7 L RDW 15.8 H Plt Count 262 MPV 7.7 Neut % (Auto) 93.2 H Lymph % (Auto) 5.1 L Pickett % (Auto) 1.6 Eos % (Auto) 0.0 Baso % (Auto) 0.1 Neut # 11.2 H Lymph # 0.6 L Pickett # 0.2 Eos # 0.0 Baso # 0.0 Neutrophils % (Manual) 93 H Band Neutrophils % 1 Lymphocytes % (Manual) 3 L Monocytes % (Manual) 3 Hypersegmented Polys Present Toxic Granulation Present Platelet Estimate Normal Large Platelets Present Polychromasia Slight Hypochromasia (manual) Slight Anisocytosis (manual) Slight Spherocytes Slight Puncture Site pCO2 pO2 HCO3 ABG pH ABG Total CO2 ABG O2 Saturation ABG Base Excess ABG Hemoglobin ABG Carboxyhemoglobin POC ABG HHb (Measured) ABG Methemoglobin Reese Test A-a O2 Difference Respiratory Index Hgb O2 Saturation Mechanical Rate FiO2 Tidal Volume PEEP Sodium 139 Potassium 4.1 Chloride 97 L Carbon Dioxide 35 H Anion Gap 11 BUN 18 H Creatinine 0.8 Est GFR ( Amer) > 60 Est GFR (Non-Af Amer) > 60 Random Glucose 93 Calcium 7.9 L Phosphorus 6.9 H Magnesium 1.4 L Total Bilirubin 0.5 AST 20 ALT 29 Alkaline Phosphatase 111 Total Protein 5.5 L Albumin 2.5 L Globulin 3.0 Albumin/Globulin Ratio 0.8 L Complement C3 Complement C4 CMV Specimen Source CMV DNA Quant PCR CMV Qnt PCR log IU/mL
[2016-11-21] MEDS: Midazolam 50 mg/10 ml 100 MG in Sodium Chloride 0.9% 80 ML IV PRN (17:39)
--- NOTE | 2016-11-21 19:00 | CP.PCM.PN ---
Subjective - Date & Time of Evaluation Date of Evaluation: 11/21/16 Time of Evaluation: 15:40 - Subjective Subjective: CT Surgery Pt S&E, NAEO. ICU team able to slightly wean FiO2 to 85. Pt intubated & sedated but arousable. Objective - Vital Signs/Intake and Output Vital Signs (last 24 hours): Temp Pulse Resp BP Pulse Ox 96.5 F L 86 26 H 100/52 L 92 L 11/21/16 16:00 11/21/16 18:00 11/21/16 18:00 11/21/16 18:00 11/21/16 18:00 Intake and Output: 11/21/16 11/21/16 06:59 18:59 Intake Total 682.3 1152.8 Output Total 1826 1736 Balance -1143.7 -583.2 - Medications Medications: Current Medications Albuterol/Ipratropium (Duoneb 3 Mg/0.5 Mg (3 Ml) Ud) 3 ml INH RQ6 [facility] Last Admin: 11/21/16 13:32 Dose: 3 ml Aspirin (Aspirin Chewable) 81 mg PO DAILY [facility] Last Admin: 11/21/16 10:10 Dose: 81 mg Clopidogrel Bisulfate (Plavix) 75 mg PO DAILY [facility] Last Admin: 11/21/16 10:10 Dose: 75 mg Enoxaparin Sodium (Lovenox) 40 mg SC DAILY [facility] Last Admin: 11/21/16 10:10 Dose: 40 mg Famotidine (Pepcid) 20 mg IVP BID [facility] Last Admin: 11/21/16 17:38 Dose: 20 mg Hydromorphone HCl (Dilaudid) 1 mg IVP Q3H PRN PRN Reason: Pain, severe (8-10) Last Admin: 11/20/16 14:51 Dose: 1 mg Propofol (Diprivan) 100 mls @ 2.01 mls/hr IV .Q24H PRN; Protocol; 5 MCG/KG/MIN PRN Reason: TITRATE PER MD ORDER Last Admin: 11/21/16 09:13 Dose: 8.04 mls/hr Fentanyl Citrate 2,500 mcg/ (Sodium Chloride) 250 mls @ 70 mls/hr IV .Q3H35M [facility]; 10 MCG/KG/HR PRN Reason: Protocol Last Admin: 11/21/16 18:44 Dose: Not Given Furosemide 100 mg/ Sodium (Chloride) 100 mls @ 10 mls/hr IV .Q10H [facility]; 10 MG/HR PRN Reason: Protocol Last Admin: 11/21/16 18:45 Dose: Not Given Midazolam HCl 100 mg/ Sodium (Chloride) 100 mls @ 1.4 mls/hr IV .Q24H PRN; Protocol; 0.02 MG/KG/HR PRN Reason: FOLLOW PROTOCOL Last Admin: 11/21/16 17:39 Dose: 1.4 mls/hr Levetiracetam 500 mg/ Sodium (Chloride) 105 mls @ 420 mls/hr IVPB Q12H [facility] Last Admin: 11/21/16 10:31 Dose: 420 mls/hr Lactulose (Enulose) 20 gm PO HS PRN PRN Reason: Constipation Methylprednisolone (Solu-Medrol) 80 mg IV Q6 [facility] Last Admin: 11/21/16 17:38 Dose: 80 mg - Labs Labs: 11/21/16 06:29 11/21/16 06:29 PT 12.3 SECONDS (9.7-12.2) H 11/16/16 06:24 INR 1.1 11/16/16 06:24 APTT 32 SECONDS (21-34) 11/16/16 06:24 - Constitutional Appears: Non-toxic, No Acute Distress - Head Exam Head Exam: ATRAUMATIC, NORMOCEPHALIC - ENT Exam Additional comments: ETT in place, trachea midline - Respiratory Exam Respiratory Exam: Decreased Breath Sounds (b/l). absent: Accessory Muscle Use - GI/Abdominal Exam GI & Abdominal Exam: Soft. absent: Distended, Tenderness - Neurological Exam Neurological Exam: Alert, Awake - Skin Skin Exam: Dry, Warm Assessment and Plan - Assessment and Plan (Free Text) Assessment: 51F with pulmonary fibrosis s/p R VATS with wedge resection & CT placement POD# 4 Plan: - Cont CT on suction; monitor output - F/U Daily CXR - f/u pathology D/W Dr. Dustin Henry PGY3
[2016-11-22] MEDS: Albuterol-Ipratrop 3 mg / 0.5 (3 ml) UD INH SCH ×4 (01:19→19:59)
[2016-11-22 05:43] LABS: ABG ALLEN TEST POS; ABG MECHANICAL RATE 16; ARTERIAL BLOOD HGB O2 SAT 83.4 % (95.0-98.0); ATERIAL BLOOD GAS PEEP 12; CARBOXYHEMOGLOBIN 1.8 % (0.5-1.5); DRAW SITE LB; METHEMOGLOBIN 0.8 % (0.0-3.0)
[2016-11-22] MEDS: MethylPREDNISolone 40 mg Vial IV SCH ×3 (05:58→18:22)
[2016-11-22] MEDS: Furosemide 100 MG in Sodium Chloride 0.9% 90 ML IV SCH (06:50)
[2016-11-22 06:56] LABS: BASO % 0.2 % (0.0-2.0); HEMATOCRIT 25.8 % (34.0-47.0); LYMPH # 0.6 K/uL (1.0-4.3); LYMPH % 4.7 % (20.0-40.0); MEAN CELL VOLUME 89.5 fL (81.0-99.0); MEAN CORPUSCULAR HEMOGLOBIN 28.9 pg (27.0-31.0); MEAN CORPUSCULAR HGB CONC 32.3 g/dL (33.0-37.0); MEAN PLATELET VOLUME 7.5 fL (7.2-11.7); MONO # 0.4 K/uL (0.0-0.8); MONO % 3.4 % (0.0-10.0); PLATELET COUNT 345 K/uL (130-400); WHITE BLOOD COUNT 12.5 K/uL (4.8-10.8)
[2016-11-22 07:06] LABS: CHLORIDE 95 mmol/L (98-107); POTASSIUM 3.7 mmol/L (3.6-5.2); SODIUM 140 mmol/L (132-148)
[2016-11-22 07:09] LABS: BLOOD UREA NITROGEN 26 mg/dL (7-17); GFR AFRICAN-AMERICAN > 60
[2016-11-22 07:10] LABS: GLUCOSE,RANDOM 145 mg/dL (65-105); MAGNESIUM 1.7 mg/dL (1.6-2.3); PHOSPHOROUS 4.9 mg/dL (2.5-4.5)
[2016-11-22 08:02] LABS: CARBON DIOXIDE 39 mmol/L (22-30)
[2016-11-22] MEDS: Enoxaparin 40 mg Syringe SC SCH (09:04)
--- NOTE | 2016-11-22 09:08 | CP.PCM.PN ---
Subjective - Date & Time of Evaluation Date of Evaluation: 11/22/16 Time of Evaluation: 07:30 - Subjective Subjective: Patient seen and examined in the intensive care unit Intubated on ventilatory support FiO2 85% with PEEP of 12 saturation in the mid 80s Awake and responsive in no distress Peak airway pressures upper 20s Afebrile Good urine output/ on Lasix drip Objective - Vital Signs/Intake and Output Vital Signs (last 24 hours): Temp Pulse Resp BP Pulse Ox 97.9 F 100 H 22 95/65 L 88 L 11/22/16 08:00 11/22/16 08:00 11/22/16 08:00 11/22/16 08:00 11/22/16 08:00 Intake and Output: 11/22/16 11/22/16 06:59 18:59 Intake Total 568.7 118.4 Output Total 1575 300 Balance -1006.3 -181.6 - Medications Medications: Current Medications Albuterol/Ipratropium (Duoneb 3 Mg/0.5 Mg (3 Ml) Ud) 3 ml INH RQ6 [facility] Last Admin: 11/22/16 08:03 Dose: 3 ml Aspirin (Aspirin Chewable) 81 mg PO DAILY [facility] Last Admin: 11/22/16 09:04 Dose: 81 mg Clopidogrel Bisulfate (Plavix) 75 mg PO DAILY [facility] Last Admin: 11/22/16 09:04 Dose: 75 mg Enoxaparin Sodium (Lovenox) 40 mg SC DAILY [facility] Last Admin: 11/22/16 09:04 Dose: 40 mg Famotidine (Pepcid) 20 mg IVP BID [facility] Last Admin: 11/22/16 09:04 Dose: 20 mg Hydromorphone HCl (Dilaudid) 1 mg IVP Q3H PRN PRN Reason: Pain, severe (8-10) Last Admin: 11/20/16 14:51 Dose: 1 mg Propofol (Diprivan) 100 mls @ 2.01 mls/hr IV .Q24H PRN; Protocol; 5 MCG/KG/MIN PRN Reason: TITRATE PER MD ORDER Last Titration: 11/22/16 04:13 Dose: 14.92 mcg/kg/min Fentanyl Citrate 2,500 mcg/ (Sodium Chloride) 250 mls @ 70 mls/hr IV .Q3H35M [facility]; 10 MCG/KG/HR PRN Reason: Protocol Last Admin: 11/22/16 07:15 Dose: Not Given Midazolam HCl 100 mg/ Sodium (Chloride) 100 mls @ 1.4 mls/hr IV .Q24H PRN; Protocol; 0.02 MG/KG/HR PRN Reason: FOLLOW PROTOCOL Last Admin: 11/21/16 17:39 Dose: 1.4 mls/hr Levetiracetam 500 mg/ Sodium (Chloride) 105 mls @ 420 mls/hr IVPB Q12H [facility] Last Admin: 11/21/16 22:45 Dose: 420 mls/hr Furosemide 100 mg/ Sodium (Chloride) 100 mls @ 5 mls/hr IV .Q20H [facility]; 5 MG/HR PRN Reason: Protocol Last Admin: 11/22/16 06:50 Dose: 5 mls/hr Lactulose (Enulose) 20 gm PO HS PRN PRN Reason: Constipation Methylprednisolone (Solu-Medrol) 80 mg IV Q6 [facility] Last Admin: 11/22/16 05:58 Dose: 80 mg - Labs Labs: 11/22/16 06:42 11/22/16 06:42 PT 12.3 SECONDS (9.7-12.2) H 11/16/16 06:24 INR 1.1 11/16/16 06:24 APTT 32 SECONDS (21-34) 11/16/16 06:24 - Head Exam Head Exam: ATRAUMATIC, NORMOCEPHALIC - Eye Exam Eye Exam: Normal appearance - ENT Exam ENT Exam: Mucous Membranes Moist - Neck Exam Neck Exam: Normal Inspection - Respiratory Exam Respiratory Exam: Rales, Rhonchi - Cardiovascular Exam Cardiovascular Exam: REGULAR RHYTHM - GI/Abdominal Exam GI & Abdominal Exam: Soft, Normal Bowel Sounds - Extremities Exam Extremities Exam: Pedal Edema - Neurological Exam Neurological Exam: Alert Assessment and Plan (1) Respiratory insufficiency Assessment & Plan: Increase FiO2 to 100% Continue antibiotics and steroids Continue ventilatory support No weaning as patient requiring high FiO2 Status post lung biopsy awaiting pathology report Status: Acute (2) Bilateral pneumonia Status: Acute (3) Small bowel obstruction Status: Acute
--- NOTE | 2016-11-22 09:09 | CP.PCM.PN ---
Subjective - Date & Time of Evaluation Date of Evaluation: 11/22/16 Time of Evaluation: 08:45 - Subjective Subjective: CT Surgery Pt S&E, NAEO. FiO2 @ 85. Sats in 80s. Pt intubated & arousable. Objective - Vital Signs/Intake and Output Vital Signs (last 24 hours): Temp Pulse Resp BP Pulse Ox 97.9 F 100 H 22 95/65 L 88 L 11/22/16 08:00 11/22/16 08:00 11/22/16 08:00 11/22/16 08:00 11/22/16 08:00 Intake and Output: 11/22/16 11/22/16 06:59 18:59 Intake Total 568.7 118.4 Output Total 1575 300 Balance -1006.3 -181.6 - Medications Medications: Current Medications Albuterol/Ipratropium (Duoneb 3 Mg/0.5 Mg (3 Ml) Ud) 3 ml INH RQ6 [facility] Last Admin: 11/22/16 08:03 Dose: 3 ml Aspirin (Aspirin Chewable) 81 mg PO DAILY [facility] Last Admin: 11/22/16 09:04 Dose: 81 mg Clopidogrel Bisulfate (Plavix) 75 mg PO DAILY [facility] Last Admin: 11/22/16 09:04 Dose: 75 mg Enoxaparin Sodium (Lovenox) 40 mg SC DAILY [facility] Last Admin: 11/22/16 09:04 Dose: 40 mg Famotidine (Pepcid) 20 mg IVP BID [facility] Last Admin: 11/22/16 09:04 Dose: 20 mg Hydromorphone HCl (Dilaudid) 1 mg IVP Q3H PRN PRN Reason: Pain, severe (8-10) Last Admin: 11/20/16 14:51 Dose: 1 mg Propofol (Diprivan) 100 mls @ 2.01 mls/hr IV .Q24H PRN; Protocol; 5 MCG/KG/MIN PRN Reason: TITRATE PER MD ORDER Last Titration: 11/22/16 04:13 Dose: 14.92 mcg/kg/min Fentanyl Citrate 2,500 mcg/ (Sodium Chloride) 250 mls @ 70 mls/hr IV .Q3H35M [facility]; 10 MCG/KG/HR PRN Reason: Protocol Last Admin: 11/22/16 07:15 Dose: Not Given Midazolam HCl 100 mg/ Sodium (Chloride) 100 mls @ 1.4 mls/hr IV .Q24H PRN; Protocol; 0.02 MG/KG/HR PRN Reason: FOLLOW PROTOCOL Last Admin: 11/21/16 17:39 Dose: 1.4 mls/hr Levetiracetam 500 mg/ Sodium (Chloride) 105 mls @ 420 mls/hr IVPB Q12H [facility] Last Admin: 11/21/16 22:45 Dose: 420 mls/hr Furosemide 100 mg/ Sodium (Chloride) 100 mls @ 5 mls/hr IV .Q20H [facility]; 5 MG/HR PRN Reason: Protocol Last Admin: 11/22/16 06:50 Dose: 5 mls/hr Lactulose (Enulose) 20 gm PO HS PRN PRN Reason: Constipation Methylprednisolone (Solu-Medrol) 80 mg IV Q6 [facility] Last Admin: 11/22/16 05:58 Dose: 80 mg - Labs Labs: 11/22/16 06:42 11/22/16 06:42 PT 12.3 SECONDS (9.7-12.2) H 11/16/16 06:24 INR 1.1 11/16/16 06:24 APTT 32 SECONDS (21-34) 11/16/16 06:24 - Constitutional Appears: Non-toxic, No Acute Distress - Head Exam Head Exam: ATRAUMATIC, NORMOCEPHALIC - Eye Exam Eye Exam: EOMI. absent: Scleral icterus - ENT Exam Additional comments: ETT in place, trachea midline - Respiratory Exam Respiratory Exam: NORMAL BREATHING PATTERN. absent: Respiratory Distress Additional comments: CT in place - GI/Abdominal Exam GI & Abdominal Exam: Soft. absent: Distended, Tenderness - Neurological Exam Neurological Exam: Alert, Awake - Skin Skin Exam: Dry, Warm Assessment and Plan - Assessment and Plan (Free Text) Assessment: 51F with pulmonary fibrosis s/p R VATS with wedge resection & CT placement POD# 5 Plan: - Cont CT on suction; monitor output - F/U Daily CXR - f/u pathology D/W Dr. Dustin Henry PGY3
[2016-11-22 09:34] LABS: NEUTROPHIL 94 % (50-75); TOTAL CELLS COUNTED 100
[2016-11-22] MEDS: levETIRAcetam 500 MG in Sodium Chloride 0.9% 100 ML IVPB SCH ×2 (10:07→22:44)
[2016-11-22] MEDS ORDERED: Potassium Chloride 20 mEq/15 ml LIQ UD PO ONE (10:20)
[2016-11-22] MEDS ORDERED: Furosemide 100 MG in Sodium Chloride 0.9% 90 ML IV SCH (11:21)
--- NOTE | 2016-11-22 13:31 | RAD ---
HISTORY: intubated COMPARISON: Comparison is made to 11/21/2016 FINDINGS: LUNGS: Interval slight improvement in the right lung since the previous exam. Otherwise persistent reticulonodular opacities particularly in the left lung are again seen. The ET tube is seen at appropriate position. PLEURA: Blunting of both costophrenic angles. Right-sided chest tube is again seen in place. There is residual small pneumothorax on the right upper chest appears slightly larger compared to the previous exam. CARDIOVASCULAR: Normal. OSSEOUS STRUCTURES: No significant abnormalities. VISUALIZED UPPER ABDOMEN: NG tube seen extending to the abdomen. OTHER FINDINGS: Right jugular central line is seen in place. IMPRESSION: Slightly increase in the size of the right pneumothorax since the previous study. Slight improvement in the right lung.
--- NOTE | 2016-11-22 16:26 | CP.CCUPN ---
CCU Subjective - Physician Review Events Since Last Encounter (Free Text): 11/22/16 16:19 patient seen and examined in am, looks good, but requiring very high ventilator requirements. ros limited but stated no pain this am pe: bp 114/78 mmhg, hr 106 bpm, rr 22, o2 93 % on 12 peep and 100% fio2, afebrile aaox3, writes to communicate, follows commands, very awake despite strong sedatives s1, s2 rrr abdomen soft, non tender able to move all extremities no focal neurological abnormalities skin intact a/p: pulmonary fibrosis/ILD exacerbation: waiting for further pathology results, on solumedrol 80 mg q6h, peep 12, fio2 100% since Pao2 dropped in the 40's CT to suction, no drainage replace electrolytes good renal function metabolic alkalosis secondary to lasix, diamox 500 X 3 doses doubt pneumonia cad with stent placement last summer: on plavix and aspirin Lupus Spoke to sonVinnie [id number] and updated CCU Objective - Vital Signs / Intake & Output Vital Signs (Last 4 hours): Vital Signs Pulse Resp BP Pulse Ox 11/22/16 13:00 100 H 22 107/67 98 11/22/16 12:41 101/49 L Intake and Output (Last 8hrs): Intake & Output 11/22/16 11/22/16 11/22/16 06:59 14:59 22:59 Intake Total 357.1 446.4 Output Total 1200 980 Balance -842.9 -533.6 Weight 143 lb 4.807 oz Intake: Intake, IV Amount 357.1 306.4 Right Internal Jugular 247.9 187.6 Right Medial Port 58 34 Internal Jugular Right Distal Port 11.2 9.8 Internal Jugular Right Proximal Port 40 75.0 Internal Jugular Tube Feeding 140 Output: Chest Tube Drainage 0 Right Mid-Axillary Chest 0 Urine 1200 980 Urethral (Mishra) 1200 980 - Physical Exam Head: Positive for: Atraumatic, Normocephalic Pupils: Positive for: PERRL Extroacular Muscles: Positive for: EOMI Conjunctiva: Positive for: Normal Ears: Positive for: Normal Mouth: Positive for: Moist Mucous Membranes, Other (ET & OG tubes in place) Pharnyx: Positive for: Normal Nose (External): Positive for: Atraumatic Neck: Positive for: Normal Range of Motion, Trachea Midline, Other (Right IJ (- ) erythema/drainage) Respiratory/Chest: Positive for: Good Air Exchange, Decreased Breath Sounds, Rhonchi (diffuse). Negative for: Clear to Auscultation (coarse BS b/l), Respiratory Distress, Accessory Muscle Use, Wheezes, Rales, Retracting Cardiovascular: Positive for: Normal S1, S2, Peripheal Pulses Present, Tachycardic. Negative for: Murmurs, Rub, Gallop Abdomen: Negative for: Tenderness, Distention, Normal Bowel Sounds (hypoactive) , Peritoneal Signs, Rebound, Guarding Upper Extremity: Positive for: Normal Inspection. Negative for: Cyanosis, Edema Lower Extremity: Positive for: Normal Inspection. Negative for: Edema (B/L, minimal) Neurological: Positive for: Other (intubated/sedated). Negative for: GCS=15, Speech Normal Skin: Positive for: Warm, Dry, Normal Color. Negative for: Rashes Psychiatric: Positive for: Alert - Medications Active Medications: Active Medications Generic Name Dose Route Start Last Admin Trade Name Freq PRN Reason Stop Dose Admin Acetazolamide 500 mg 11/22/16 10:30 11/22/16 12:02 Diamox 500 Mg Inj IV 11/23/16 02:31 500 mg Q8H [facility] Administration Albuterol/Ipratropium 3 ml 11/19/16 02:00 11/22/16 13:05 Duoneb 3 Mg/0.5 Mg (3 Ml) Ud INH 3 ml RQ6 [facility] Administration Aspirin 81 mg 11/07/16 10:00 11/22/16 09:04 Aspirin Chewable PO 81 mg DAILY [facility] Administration Clopidogrel Bisulfate 75 mg 11/07/16 10:00 11/22/16 09:04 Plavix PO 75 mg DAILY [facility] Administration Enoxaparin Sodium 40 mg 11/07/16 10:00 11/22/16 09:04 Lovenox SC 40 mg DAILY [facility] Administration Famotidine 20 mg 11/17/16 10:15 11/22/16 09:04 Pepcid IVP 20 mg BID [facility] Administration Furosemide 40 mg 11/23/16 10:00 Lasix IVP DAILY [facility] Fentanyl Citrate 2,500 mcg/ 250 mls @ 70 mls/hr 11/19/16 10:35 11/22/16 11:45 Sodium Chloride IV 26.8 mls/hr .Q3H35M [facility] Administration Protocol 10 MCG/KG/HR Midazolam HCl 100 mg/ Sodium 100 mls @ 1.4 mls/hr 11/20/16 15:00 11/21/16 17:39 Chloride IV 1.4 mls/hr .Q24H PRN Administration FOLLOW PROTOCOL Protocol 0.02 MG/KG/HR Levetiracetam 500 mg/ Sodium 105 mls @ 420 mls/hr 11/21/16 11:00 11/22/16 10:07 Chloride IVPB 420 mls/hr Q12H [facility] Administration Lactulose 20 gm 11/20/16 09:28 Enulose PO HS PRN Constipation Methylprednisolone 80 mg 11/20/16 14:16 11/22/16 11:46 Solu-Medrol IV 80 mg Q6 [facility] Administration - Patient Studies Lab Studies: Lab Studies 11/22/16 11/22/16 Range/Units 06:42 05:26 WBC 12.5 H (4.8-10.8) K/uL RBC 2.88 L (3.80-5.20) Mil/uL Hgb 8.3 L (11.0-16.0) g/dL Hct 25.8 L (34.0-47.0) % MCV 89.5 (81.0-99.0) fL MCH 28.9 (27.0-31.0) pg MCHC 32.3 L (33.0-37.0) g/dL RDW 16.0 H (11.5-14.5) % Plt Count 345 (130-400) K/uL MPV 7.5 (7.2-11.7) fL Neut % (Auto) 91.7 H (50.0-75.0) % Lymph % (Auto) 4.7 L (20.0-40.0) % [place] % (Auto) 3.4 (0.0-10.0) % Eos % (Auto) 0.0 (0.0-4.0) % Baso % (Auto) 0.2 (0.0-2.0) % Neut # 11.4 H (1.8-7.0) K/uL Lymph # 0.6 L (1.0-4.3) K/uL [place] # 0.4 (0.0-0.8) K/uL Eos # 0.0 (0.0-0.7) K/uL Baso # 0.0 (0.0-0.2) K/uL Neutrophils % (Manual) 94 H (50-75) % Lymphocytes % (Manual) 2 L (20-40) % Monocytes % (Manual) 4 (0-10) % Toxic Granulation Present Platelet Estimate Normal (NORMAL) Polychromasia Slight Hypochromasia (manual) Slight Anisocytosis (manual) Slight Puncture Site Lb pCO2 58 H (35-45) mm/Hg pO2 49 L (80-100) mm/Hg HCO3 38.3 H (21-28) mmol/L ABG pH 7.48 H (7.35-7.45) ABG Total CO2 45.0 H (22-28) mmol/L ABG O2 Saturation 85.6 L (95-98) % ABG Base Excess 17.4 H (-2.0-3.0) mmol/L ABG Hemoglobin 9.4 L (11.7-17.4) g/dL ABG Carboxyhemoglobin 1.8 H (0.5-1.5) % POC ABG HHb (Measured) 14.0 H (0.0-5.0) % ABG Methemoglobin 0.8 (0.0-3.0) % Reese Test Pos A-a O2 Difference 485.0 mm/Hg Respiratory Index 9.9 Hgb O2 Saturation 83.4 L (95.0-98.0) % Mechanical Rate 16 FiO2 85.0 % Tidal Volume 450 PEEP 12 Sodium 140 (132-148) mmol/L Potassium 3.7 (3.6-5.2) mmol/L Chloride 95 L (98-107) mmol/L Carbon Dioxide 39 H (22-30) mmol/L Anion Gap 10 (10-20) BUN 26 H (7-17) mg/dL Creatinine 0.8 (0.7-1.2) MG/DL Est GFR ( Amer) > 60 Est GFR (Non-Af Amer) > 60 Random Glucose 145 H (65-105) mg/dL Calcium 8.0 L (8.6-10.4) mg/dl Phosphorus 4.9 H (2.5-4.5) mg/dL Magnesium 1.7 (1.6-2.3) mg/dL Laboratory Results - last 24 hr 11/22/16 11/22/16 05:26 06:42 WBC 12.5 H RBC 2.88 L Hgb 8.3 L Hct 25.8 L MCV 89.5 MCH 28.9 MCHC 32.3 L RDW 16.0 H Plt Count 345 MPV 7.5 Neut % (Auto) 91.7 H Lymph % (Auto) 4.7 L [place] % (Auto) 3.4 Eos % (Auto) 0.0 Baso % (Auto) 0.2 Neut # 11.4 H Lymph # 0.6 L [place] # 0.4 Eos # 0.0 Baso # 0.0 Neutrophils % (Manual) 94 H Lymphocytes % (Manual) 2 L Monocytes % (Manual) 4 Toxic Granulation Present Platelet Estimate Normal Polychromasia Slight Hypochromasia (manual) Slight Anisocytosis (manual) Slight Puncture Site Lb pCO2 58 H pO2 49 L HCO3 38.3 H ABG pH 7.48 H ABG Total CO2 45.0 H ABG O2 Saturation 85.6 L ABG Base Excess 17.4 H ABG Hemoglobin 9.4 L ABG Carboxyhemoglobin 1.8 H POC ABG HHb (Measured) 14.0 H ABG Methemoglobin 0.8 Reese Test Pos A-a O2 Difference 485.0 Respiratory Index 9.9 Hgb O2 Saturation 83.4 L Mechanical Rate 16 FiO2 85.0 Tidal Volume 450 PEEP 12 Sodium 140 Potassium 3.7 Chloride 95 L Carbon Dioxide 39 H Anion Gap 10 BUN 26 H Creatinine 0.8 Est GFR ( Amer) > 60 Est GFR (Non-Af Amer) > 60 Random Glucose 145 H Calcium 8.0 L Phosphorus 4.9 H Magnesium 1.7
[2016-11-22] MEDS: Midazolam 50 mg/10 ml 100 MG in Sodium Chloride 0.9% 80 ML IV PRN (18:27)
[2016-11-23] MEDS: MethylPREDNISolone 40 mg Vial IV SCH ×5 (00:03→23:28)
[2016-11-23] MEDS: Albuterol-Ipratrop 3 mg / 0.5 (3 ml) UD INH SCH ×5 (01:06→23:44)
[2016-11-23 05:58] LABS: ABG ALLEN TEST POS; ABG MECHANICAL RATE 16; ARTERIAL BLOOD HGB O2 SAT 95.7 % (95.0-98.0); ATERIAL BLOOD GAS PEEP 12; CARBOXYHEMOGLOBIN 2.2 % (0.5-1.5); DRAW SITE RR; HHB 1.3 % (0.0-5.0); METHEMOGLOBIN 0.7 % (0.0-3.0)
[2016-11-23 06:43] LABS: BASO % 0.2 % (0.0-2.0); HEMATOCRIT 22.4 % (34.0-47.0); LYMPH # 0.5 K/uL (1.0-4.3); LYMPH % 3.2 % (20.0-40.0); MEAN CELL VOLUME 91.7 fL (81.0-99.0); MEAN CORPUSCULAR HEMOGLOBIN 28.3 pg (27.0-31.0); MEAN CORPUSCULAR HGB CONC 30.9 g/dL (33.0-37.0); MEAN PLATELET VOLUME 7.7 fL (7.2-11.7); MONO # 0.8 K/uL (0.0-0.8); MONO % 4.8 % (0.0-10.0); PLATELET COUNT 378 K/uL (130-400); WHITE BLOOD COUNT 16.5 K/uL (4.8-10.8)
[2016-11-23 06:53] LABS: MAGNESIUM 2.3 mg/dL (1.6-2.3)
[2016-11-23 08:13] LABS: NEUTROPHIL 94 % (50-75); TOTAL CELLS COUNTED 100
--- NOTE | 2016-11-23 08:15 | CP.PCM.PN ---
Subjective - Date & Time of Evaluation Date of Evaluation: 11/23/16 Time of Evaluation: 08:01 - Subjective Subjective: Cardiothoracic Surgery Note for Dr. Chan This 51F was seen and examined this AM at bedside. The nurse reports no acute events overnight the patient remains intubated. The patient is currently awake and alert on a midazolam, no pressors at this time. Pt remains tachycardic between 100-110bpm, normotensive, Saturating low 90s% on 100%O2 12 PEEP, 400ml. Her CT output is of questionable accuracy due to mishandling of the pleurovac however output was minimal. Dressings in place with strike flui strike through. Objective - Vital Signs/Intake and Output Vital Signs (last 24 hours): Temp Pulse Resp BP Pulse Ox 97.8 F 101 H 18 117/79 98 11/23/16 04:00 11/23/16 07:44 11/23/16 07:44 11/23/16 07:44 11/23/16 07:44 Intake and Output: 11/23/16 11/23/16 06:59 18:59 Intake Total 758.8 Output Total 425 Balance 333.8 - Medications Medications: Current Medications Albuterol/Ipratropium (Duoneb 3 Mg/0.5 Mg (3 Ml) Ud) 3 ml INH RQ6 [facility] Last Admin: 11/23/16 07:45 Dose: 3 ml Aspirin (Aspirin Chewable) 81 mg PO DAILY [facility] Last Admin: 11/22/16 09:04 Dose: 81 mg Clopidogrel Bisulfate (Plavix) 75 mg PO DAILY [facility] Last Admin: 11/22/16 09:04 Dose: 75 mg Enoxaparin Sodium (Lovenox) 40 mg SC DAILY [facility] Last Admin: 11/22/16 09:04 Dose: 40 mg Famotidine (Pepcid) 20 mg IVP BID [facility] Last Admin: 11/22/16 18:22 Dose: 20 mg Furosemide (Lasix) 40 mg IVP DAILY [facility] Fentanyl Citrate 2,500 mcg/ (Sodium Chloride) 250 mls @ 70 mls/hr IV .Q3H35M [facility]; 10 MCG/KG/HR PRN Reason: Protocol Last Admin: 11/23/16 06:26 Dose: Not Given Midazolam HCl 100 mg/ Sodium (Chloride) 100 mls @ 1.4 mls/hr IV .Q24H PRN; Protocol; 0.02 MG/KG/HR PRN Reason: FOLLOW PROTOCOL Last Admin: 11/22/16 18:27 Dose: 1.4 mls/hr Levetiracetam 500 mg/ Sodium (Chloride) 105 mls @ 420 mls/hr IVPB Q12H [facility] Last Admin: 11/22/16 22:44 Dose: 420 mls/hr Lactulose (Enulose) 20 gm PO HS PRN PRN Reason: Constipation Last Admin: 11/23/16 05:55 Dose: 20 gm Methylprednisolone (Solu-Medrol) 80 mg IV Q6 [facility] Last Admin: 11/23/16 05:54 Dose: 80 mg - Labs Labs: 11/23/16 06:31 11/22/16 06:42 PT 12.3 SECONDS (9.7-12.2) H 11/16/16 06:24 INR 1.1 11/16/16 06:24 APTT 32 SECONDS (21-34) 11/16/16 06:24 - Constitutional Appears: No Acute Distress - Head Exam Head Exam: ATRAUMATIC, NORMOCEPHALIC - Eye Exam Eye Exam: EOMI, Normal appearance - Neck Exam Neck Exam: Full ROM - Respiratory Exam Additional comments: Intubated and ventilated - Cardiovascular Exam Cardiovascular Exam: +S1, +S2 - GI/Abdominal Exam GI & Abdominal Exam: Soft. absent: Guarding, Rigid, Tenderness - Extremities Exam Extremities Exam: Normal Inspection. absent: Pedal Edema, Tenderness - Neurological Exam Neurological Exam: Alert, Awake - Skin Skin Exam: Dry, Intact, Normal Color Assessment and Plan - Assessment and Plan (Free Text) Assessment: 51F with pulmonary fibrosis s/p R VATS with wedge resection & CT placement POD# 6 Plan: - Cont CT on suction; monitor output - F/U Daily CXR - f/u pathology D/W Dr. Dustin Gonzales PGY-1
[2016-11-23] MEDS: Enoxaparin 40 mg Syringe SC SCH ×2 (08:38→10:32)
--- NOTE | 2016-11-23 10:21 | RAD ---
HISTORY: intubated COMPARISON: 11/22/2016 FINDINGS: LUNGS: Lines and tubes stable position. Diffuse confluent airspace opacities throughout both lungs with prominent increased interstitial lung markings. Not significantly changed since prior study. PLEURA: As above. CARDIOVASCULAR: Normal. OSSEOUS STRUCTURES: No significant abnormalities. VISUALIZED UPPER ABDOMEN: Normal. OTHER FINDINGS: None. IMPRESSION: Lines and tubes stable position. Diffuse confluent airspace opacities throughout both lungs with prominent increased interstitial lung markings. Not significantly changed since prior study.
[2016-11-23] MEDS ORDERED: Furosemide 100 MG in Sodium Chloride 0.9% 90 ML IV SCH ×2 (10:30→18:00)
[2016-11-23 10:43] LABS: CHLORIDE 98 mmol/L (98-107)
[2016-11-23 10:44] LABS: POTASSIUM 4.3 mmol/L (3.6-5.2); SODIUM 143 mmol/L (132-148)
[2016-11-23 10:47] LABS: ALB/GLOB RATIO 0.8 (1.0-2.1); ALKALINE PHOSPHATASE 98 U/L (38-126); ALT/SGPT 21 U/L (9-52); AST/SGOT 22 U/L (14-36); BILIRUBIN,TOTAL 0.6 mg/dL (0.2-1.3); BLOOD UREA NITROGEN 33 mg/dL (7-17); CALCIUM 7.9 mg/dl (8.6-10.4); CARBON DIOXIDE 39 mmol/L (22-30); GFR AFRICAN-AMERICAN > 60; GLUCOSE,RANDOM 130 mg/dL (65-105); TOTAL PROTEIN 5.5 g/dL (6.3-8.3)
--- NOTE | 2016-11-23 11:11 | CP.PCM.PN ---
Subjective - Date & Time of Evaluation Date of Evaluation: 11/23/16 Time of Evaluation: 08:30 - Subjective Subjective: Patient seen and examined. Remains intubated on ventilat support FiO2 100% with PEEP of 12 Saturation 90-92% Awake and responsive Back on Lasix drip Afebrile On high-dose steroids Tolerating feeding Awaiting pathology repo Objective - Vital Signs/Intake and Output Vital Signs (last 24 hours): Temp Pulse Resp BP Pulse Ox 98.2 F 105 H 17 121/73 99 11/23/16 08:57 11/23/16 10:17 11/23/16 10:17 11/23/16 10:17 11/23/16 10:17 Intake and Output: 11/23/16 11/23/16 06:59 18:59 Intake Total 758.8 40 Output Total 425 140 Balance 333.8 -100 - Medications Medications: Current Medications Albuterol/Ipratropium (Duoneb 3 Mg/0.5 Mg (3 Ml) Ud) 3 ml INH RQ6 [facility] Last Admin: 11/23/16 07:45 Dose: 3 ml Aspirin (Aspirin Chewable) 81 mg PO DAILY [facility] Last Admin: 11/23/16 09:23 Dose: Not Given Clopidogrel Bisulfate (Plavix) 75 mg PO DAILY [facility] Last Admin: 11/23/16 10:33 Dose: Not Given Enoxaparin Sodium (Lovenox) 40 mg SC DAILY [facility] Last Admin: 11/23/16 10:32 Dose: Not Given Famotidine (Pepcid) 20 mg IVP BID [facility] Last Admin: 11/23/16 10:19 Dose: Not Given Fentanyl Citrate 2,500 mcg/ (Sodium Chloride) 250 mls @ 70 mls/hr IV .Q3H35M [facility]; 10 MCG/KG/HR PRN Reason: Protocol Last Admin: 11/23/16 09:24 Dose: Not Given Midazolam HCl 100 mg/ Sodium (Chloride) 100 mls @ 1.4 mls/hr IV .Q24H PRN; Protocol; 0.02 MG/KG/HR PRN Reason: FOLLOW PROTOCOL Last Admin: 11/22/16 18:27 Dose: 1.4 mls/hr Levetiracetam 500 mg/ Sodium (Chloride) 105 mls @ 420 mls/hr IVPB Q12H [facility] Last Admin: 11/22/16 22:44 Dose: 420 mls/hr Furosemide 100 mg/ Sodium (Chloride) 100 mls @ 5 mls/hr IV .Q20H [facility] PRN Reason: 5 MG/HR Lactulose (Enulose) 20 gm PO HS PRN PRN Reason: Constipation Last Admin: 11/23/16 05:55 Dose: 20 gm Methylprednisolone (Solu-Medrol) 80 mg IV Q6 [facility] Last Admin: 11/23/16 05:54 Dose: 80 mg - Labs Labs: 11/23/16 06:31 11/23/16 10:36 PT 12.3 SECONDS (9.7-12.2) H 11/16/16 06:24 INR 1.1 11/16/16 06:24 APTT 32 SECONDS (21-34) 11/16/16 06:24 - Constitutional Appears: No Acute Distress - Head Exam Head Exam: ATRAUMATIC, NORMOCEPHALIC - Eye Exam Eye Exam: Normal appearance - ENT Exam ENT Exam: Mucous Membranes Moist - Respiratory Exam Respiratory Exam: Rales, Rhonchi - Cardiovascular Exam Cardiovascular Exam: REGULAR RHYTHM - GI/Abdominal Exam GI & Abdominal Exam: Soft, Normal Bowel Sounds - Neurological Exam Neurological Exam: Alert Assessment and Plan (1) Respiratory insufficiency Assessment & Plan: continue ventilatory support Reduce FiO2 as tolerated Transfuse packed RBCs Continue steroids Status: Acute (2) Bilateral pneumonia Status: Acute (3) Small bowel obstruction Status: Acute
--- NOTE | 2016-11-23 11:43 | CP.CCUPN ---
CCU Subjective - Physician Review Events Since Last Encounter (Free Text): 11/23/16 11:40 continues to require FiO2 of 100% Subjective (Free Text): 11/10/16 12:04 Pt S & E this AM. Reports ab pain and SOB improved- on VTM. Had soft unformed BMs x 2 yesterday, 1 liquid stool today with large volume flatus. Denies N/V/F/C, chest pain. 11/11/16 12:38 Pt S & E this AM. Pt reports having 3 liquid stools yesterday, continues to require VTM 2/2 SOB, insomnia. Abdominal pain much improved, abdominal distention much improved. Denies N/V/F/C, chest pain. 11/12/16 14:26 Pt S & E this AM. Pt reports continued SOB, likes being on Bipap 2/2 less work to breathe. Ab pain improved, continues with liquid stools, now has non productive cough. 11/13/16 16:55 Pt S & E this AM. Pt continues w/SOB requiring Bipap overnight, using more Bipap vs. VTM mask, states she had insomnia overnight 2/2 SOB, needing to focus on breathing. Abdominal pain resolved. Had slight nausea yesterday with protein supplement. Had 1 liquid BM yesterday. Denies emesis, fevers, chills, chest pain. 11/16/16 13:44 P S & E this AM. Pt on BiPAP -tolerating it well. Pt admits to epigastric abdominal pain, hunger -asking for food. For OR tomorrow for bronchoscopy and wedge biopsy with Dr. Chan. 11/17/16 12:40 Pt S & E this AM. Pt stable on BiPAP confortable overnight. Continued epigastric pain but tolerating diet intermittently. No BM despite SS enema & colace. For bronchoscopy and wedge biopsy today with Dr. Chan. 11/18/16 18:07 Pt S & E this AM. Pt intubated/sedated, but alert, awake. Gesturing that her abdominal pain has resolved. 11/19/16 12:34 Pt S & E this AM. Pt intubated/sedated, but alert & awake. C/O chest wall pain, asking for sleep medication. 11/20/16 14:57 Pt S & E this AM. Pt intubated/sedated, but alert, awake, no abdominal pain, stable. 11/23/16 11:41 Pt S & E this AM. Pt intubated/sedated, but alert, awake, no complaints, denies abdominal pain. Asking for ET tube to be removed. Critical Care Time Spent (in minutes): 60 CCU Objective - Vital Signs / Intake & Output Vital Signs (Last 4 hours): Vital Signs Temp Pulse Resp BP Pulse Ox 11/23/16 10:17 105 H 17 121/73 99 11/23/16 09:28 111/72 11/23/16 08:57 98.2 F 102 H 14 111/72 100 11/23/16 07:44 101 H 18 117/79 98 Intake and Output (Last 8hrs): Intake & Output 11/22/16 11/23/16 11/23/16 22:59 06:59 14:59 Intake Total 437.5 539.2 40 Output Total 415 310 140 Balance 22.5 229.2 -100 Weight 61 kg Intake: Intake, IV Amount 277.5 279.2 Right Internal Jugular 261.3 268.0 Right Medial Port 0 Internal Jugular Right Distal Port 11.2 11.2 Internal Jugular Right Proximal Port 5.0 Internal Jugular Tube Feeding 160 160 40 Other 100 Output: Urine 415 310 140 Urethral (Mishra) 415 310 140 - Physical Exam Head: Positive for: Atraumatic, Normocephalic Pupils: Positive for: PERRL Extroacular Muscles: Positive for: EOMI Conjunctiva: Positive for: Normal Ears: Positive for: Normal Mouth: Positive for: Moist Mucous Membranes, Other (ET & OG tubes in place) Pharnyx: Positive for: Normal Nose (External): Positive for: Atraumatic Neck: Positive for: Normal Range of Motion, Trachea Midline, Other (Right IJ (- ) erythema/drainage) Respiratory/Chest: Positive for: Good Air Exchange, Decreased Breath Sounds, Rhonchi (diffuse). Negative for: Clear to Auscultation (coarse BS b/l), Respiratory Distress, Accessory Muscle Use, Wheezes, Rales, Retracting Cardiovascular: Positive for: Normal S1, S2, Peripheal Pulses Present, Tachycardic. Negative for: Murmurs, Rub, Gallop Abdomen: Positive for: Normal Bowel Sounds. Negative for: Tenderness, Distention, Peritoneal Signs, Rebound, Guarding Upper Extremity: Positive for: Normal Inspection. Negative for: Cyanosis, Edema Lower Extremity: Positive for: Normal Inspection. Negative for: Edema (B/L, minimal) Neurological: Positive for: Other (intubated/sedated). Negative for: GCS=15, Speech Normal Skin: Positive for: Warm, Dry, Normal Color. Negative for: Rashes Psychiatric: Positive for: Alert - Medications Active Medications: Active Medications Generic Name Dose Route Start Last Admin Trade Name Freq PRN Reason Stop Dose Admin Albuterol/Ipratropium 3 ml 11/19/16 02:00 11/23/16 07:45 Duoneb 3 Mg/0.5 Mg (3 Ml) Ud INH 3 ml RQ6 [facility] Administration Aspirin 81 mg 11/07/16 10:00 11/23/16 09:23 Aspirin Chewable PO Not Given DAILY [facility] Clopidogrel Bisulfate 75 mg 11/07/16 10:00 11/23/16 10:33 Plavix PO Not Given DAILY [facility] Enoxaparin Sodium 40 mg 11/07/16 10:00 11/23/16 10:32 Lovenox SC Not Given DAILY [facility] Famotidine 20 mg 11/17/16 10:15 11/23/16 10:19 Pepcid IVP Not Given BID [facility] Fentanyl Citrate 2,500 mcg/ 250 mls @ 70 mls/hr 11/19/16 10:35 11/23/16 09:24 Sodium Chloride IV Not Given .Q3H35M [facility] Protocol 10 MCG/KG/HR Midazolam HCl 100 mg/ Sodium 100 mls @ 1.4 mls/hr 11/20/16 15:00 11/22/16 18:27 Chloride IV 1.4 mls/hr .Q24H PRN Administration FOLLOW PROTOCOL Protocol 0.02 MG/KG/HR Levetiracetam 500 mg/ Sodium 105 mls @ 420 mls/hr 11/21/16 11:00 11/22/16 22:44 Chloride IVPB 420 mls/hr Q12H [facility] Administration Furosemide 100 mg/ Sodium 100 mls @ 5 mls/hr 11/23/16 10:30 Chloride IV .Q20H [facility] 5 MG/HR Lactulose 20 gm 11/20/16 09:28 11/23/16 05:55 Enulose PO 20 gm HS PRN Administration Constipation Methylprednisolone 80 mg 11/20/16 14:16 11/23/16 05:54 Solu-Medrol IV 80 mg Q6 [facility] Administration - Patient Studies Lab Studies: Lab Studies 11/23/16 11/23/16 11/23/16 Range/Units 10:36 06:31 05:39 WBC 16.5 H (4.8-10.8) K/uL RBC 2.44 L (3.80-5.20) Mil/uL Hgb 6.9 L (11.0-16.0) g/dL Hct 22.4 L (34.0-47.0) % MCV 91.7 D (81.0-99.0) fL MCH 28.3 (27.0-31.0) pg MCHC 30.9 L (33.0-37.0) g/dL RDW 16.0 H (11.5-14.5) % Plt Count 378 (130-400) K/uL MPV 7.7 (7.2-11.7) fL Neut % (Auto) 91.8 H (50.0-75.0) % Lymph % (Auto) 3.2 L (20.0-40.0) % [place] % (Auto) 4.8 (0.0-10.0) % Eos % (Auto) 0.0 (0.0-4.0) % Baso % (Auto) 0.2 (0.0-2.0) % Neut # 15.1 H (1.8-7.0) K/uL Lymph # 0.5 L (1.0-4.3) K/uL [place] # 0.8 (0.0-0.8) K/uL Eos # 0.0 (0.0-0.7) K/uL Baso # 0.0 (0.0-0.2) K/uL Neutrophils % (Manual) 94 H (50-75) % Lymphocytes % (Manual) 4 L (20-40) % Monocytes % (Manual) 2 (0-10) % Platelet Estimate Normal (NORMAL) Polychromasia Slight Hypochromasia (manual) Slight Anisocytosis (manual) Slight Puncture Site Rr pCO2 61 H (35-45) mm/Hg pO2 74 L (80-100) mm/Hg HCO3 38.8 H (21-28) mmol/L ABG pH 7.46 H (7.35-7.45) ABG Total CO2 45.3 H (22-28) mmol/L ABG O2 Saturation 98.7 H (95-98) % ABG Base Excess 17.8 H (-2.0-3.0) mmol/L ABG Hemoglobin 6.9 L (11.7-17.4) g/dL ABG Carboxyhemoglobin 2.2 H (0.5-1.5) % POC ABG HHb (Measured) 1.3 (0.0-5.0) % ABG Methemoglobin 0.7 (0.0-3.0) % Reese Test Pos A-a O2 Difference 563.0 mm/Hg Respiratory Index 7.6 Hgb O2 Saturation 95.7 (95.0-98.0) % Mechanical Rate 16 FiO2 100.0 % Tidal Volume 400 PEEP 12 Sodium 143 (132-148) mmol/L Potassium 4.3 (3.6-5.2) mmol/L Chloride 98 (98-107) mmol/L Carbon Dioxide 39 H (22-30) mmol/L Anion Gap 10 (10-20) BUN 33 H (7-17) mg/dL Creatinine 0.9 (0.7-1.2) MG/DL Est GFR ( Amer) > 60 Est GFR (Non-Af Amer) > 60 Random Glucose 130 H (65-105) mg/dL Calcium 7.9 L (8.6-10.4) mg/dl Phosphorus 4.0 (2.5-4.5) mg/dL Magnesium 2.3 (1.6-2.3) mg/dL Total Bilirubin 0.6 (0.2-1.3) mg/dL AST 22 (14-36) U/L ALT 21 (9-52) U/L Alkaline Phosphatase 98 (38-126) U/L Total Protein 5.5 L (6.3-8.3) g/dL Albumin 2.4 L (3.5-5.0) g/dL Globulin 3.1 (2.2-3.9) gm/dL Albumin/Globulin Ratio 0.8 L (1.0-2.1) Laboratory Results - last 24 hr 11/23/16 11/23/16 11/23/16 05:39 06:31 10:36 WBC 16.5 H RBC 2.44 L Hgb 6.9 L Hct 22.4 L MCV 91.7 D MCH 28.3 MCHC 30.9 L RDW 16.0 H Plt Count 378 MPV 7.7 Neut % (Auto) 91.8 H Lymph % (Auto) 3.2 L [place] % (Auto) 4.8 Eos % (Auto) 0.0 Baso % (Auto) 0.2 Neut # 15.1 H Lymph # 0.5 L [place] # 0.8 Eos # 0.0 Baso # 0.0 Neutrophils % (Manual) 94 H Lymphocytes % (Manual) 4 L Monocytes % (Manual) 2 Platelet Estimate Normal Polychromasia Slight Hypochromasia (manual) Slight Anisocytosis (manual) Slight Puncture Site Rr pCO2 61 H pO2 74 L HCO3 38.8 H ABG pH 7.46 H ABG Total CO2 45.3 H ABG O2 Saturation 98.7 H ABG Base Excess 17.8 H ABG Hemoglobin 6.9 L ABG Carboxyhemoglobin 2.2 H POC ABG HHb (Measured) 1.3 ABG Methemoglobin 0.7 Reese Test Pos A-a O2 Difference 563.0 Respiratory Index 7.6 Hgb O2 Saturation 95.7 Mechanical Rate 16 FiO2 100.0 Tidal Volume 400 PEEP 12 Sodium 143 Potassium 4.3 Chloride 98 Carbon Dioxide 39 H Anion Gap 10 BUN 33 H Creatinine 0.9 Est GFR ( Amer) > 60 Est GFR (Non-Af Amer) > 60 Random Glucose 130 H Calcium 7.9 L Phosphorus 4.0 Magnesium 2.3 Total Bilirubin 0.6 AST 22 ALT 21 Alkaline Phosphatase 98 Total Protein 5.5 L Albumin 2.4 L Globulin 3.1 Albumin/Globulin Ratio 0.8 L Review of Systems - Review of Systems Systems not reviewed;Unavailable: Intubated Critical Care Progress Note - Ventilator Checklist Head of Bed 30 Degrees: Yes Daily Sedation Vacation: Yes Daily Assessment of Readiness to Learn: Yes Daily Spontaneous Breathing Trial: Yes PUD Prophalyxis: Yes DVT Prophylaxis: Yes Oral Care with Chlorhexidine Gluconate {CHG}: Yes - Vent Settings MODE:: PRVC TIDAL VOLUME:: 400 RESP RATE:: 16 FIO2:: 100 PEEP:: 12 - Extremities/Vascular Does the Patient have a Central Venous Catheter?: Yes Insertion Site: Internal Jugular Vein Does the Patient need a Central Venous Catheter?: Yes (vascular access) Does the Patient have a Mishra Catheter?: Yes Does the Patient need a Mishra Catheter?: Yes Catheter Insertion Criteria: Need for accurate measurement of output in critically ill patient - Prophylaxis GI Prophylaxis GI: Pepsid - Prophylaxis DVT Prophylaxis DVT: Lovenox, SCDs Assessment/Plan - Assessment and Plan (Free Text) Assessment: 51F POD#5 s/p RLL wedge resection, intubated/sedated, continuing to require mech vent, lots of pulmonary support, awake, alert. No complaints, asking for ET tube to be removed. Plan: Neuro Awake Alert Sedated- Fentanyl drip, Propofol drip, Versed drip Cont home meds: Zoloft, Keppra Seizure precautions Monitor CVS ASA Plavix Monitor Pulm POD#5 s/p RLL wedge resection ABG pH 7.46 O2 74, CO2 61, HCO3 38.8 FU ABG at 4pm today Lasix drip Intubated ON mech vent protective lung protocol Duonebs SOlu-medrol CXR - Diffuse confluent airspace opacities B/L lungs w/prominent increased interstitial lung markings. Not sig changed vs prior study. FU path Pulm following Nephro Hyperphosphatemia- resolved Monitor GI OGT in place - to suction Tube feeds Lactulose HS Gen surg following- SBO mgmt as per surgery Mishra in place MOnitor UOP Heme Hgb 6.9 from 8.3 Hct 22.4 from 25.8 Type and Cross Administer 1 unit pRBCs Monitor Endo Sugars WNL Monitor MSK Monitor for skin break down ID Leukocytosis 16.5 Afebrile over last 24H Tylenol PRN ID following- CMV neg GI/DVT ppx Pepcid SCDs Lovenox Dispo: Cont ICU care On mech vent Tissue bx w/interstitial pneumonitis late stage, organizing PNA as per path- awaiting offical report DW attending - Date & Time Date: 11/23/16 Time: 07:00
[2016-11-23] MEDS: levETIRAcetam 500 MG in Sodium Chloride 0.9% 100 ML IVPB SCH ×2 (11:45→22:25)
[2016-11-23 15:51] LABS: ABG ALLEN TEST POS; ABG MECHANICAL RATE 16; ARTERIAL BLOOD HGB O2 SAT 95.1 % (95.0-98.0); ATERIAL BLOOD GAS PEEP 12; DRAW SITE RRA; HHB 1.9 % (0.0-5.0)
--- NOTE | 2016-11-23 22:16 | CP.PCM.PN ---
Subjective - Date & Time of Evaluation Date of Evaluation: 11/23/16 Time of Evaluation: 22:16 - Subjective Subjective: CHIEF COMPLAINTS TODAY : patient in ICU, Afebrile,vs BP 116/71 -Remains intubated on ventilat support FiO2 100% with PEEP of 12 Saturation 90-92% Awake and responsive Back on Lasix drip On high-dose steroids Tolerating feeding Awaiting pathology report case discussed with resident Dr. LEE. OFF ANTIBIOTICS IV CIPRO SINCE 11/21/16 NOTED (D/c by dr mccullough ) ROS. HEENT : N. Resp : No cough, +ve rhonchi , no pleuritic CP ,or hemoptysis Cardio : No anginal CP, PND, orthopnea, palpitation GI : NO n/v ,diarrhea or GI bleeding . [employer] : No headache, vertigo, focal deficit / Musculoskel : No joint swelling , Derm : No rash Psych : Normal affect. Ext : No swelling ,calf pain PE. Pt. is awake on rebreather mask V.S As noted in the chart Head ,ear nose,throat and eyes : Normal. Neck : Supple with normal carotids. Lungs: BILATERAL RHONCHI AND EXPIRATORY WHEEZE.. Heart : S1 & S2 normal with S4. No murmur. Abd : soft, with HYPOACTIVE bowel sounds. Neuro : Moves all ext. with no localized deficit. Ext : No edema with intact pulses.Non tender calves Bilateral Venodyne. Derm : No rashes or decubitus ulcer. LABS/RADIOLOGY: 11/23/16 WBC 16.5 h/h 6.9/22.4 platelets 378 Creatinine 0.9/BUN 33 lfts N CMV DNA PCR <200 NOT DETECTED CXR - Diffuse confluent airspace opacities B/L lungs w/prominent increased interstitial lung markings. Not sig changed vs prior study. URINE CULTURE 11/17/16 YEAST SPECIES URINE CULTURE SENSITIVITY 11/08/16 +VE Klebsiella pneumoniae s-Cipro, Primaxin , BLOOD CULTURES 11/08 NEGATIVE FOR 48 HOURS Objective - Vital Signs/Intake and Output Vital Signs (last 24 hours): Temp Pulse Resp BP Pulse Ox 98 F 119 H 14 100/62 93 L 11/23/16 22:00 11/23/16 22:00 11/23/16 22:00 11/23/16 22:00 11/23/16 22:00 Intake and Output: 11/23/16 11/24/16 18:59 06:59 Intake Total 525 244.7 Output Total 1640 240 Balance -1115 4.7 - Medications Medications: Current Medications Acetazolamide (Diamox 500 Mg Inj) 500 mg IV Q8H [facility] Stop: 11/24/16 12:46 Albuterol/Ipratropium (Duoneb 3 Mg/0.5 Mg (3 Ml) Ud) 3 ml INH RQ6 [facility] Last Admin: 11/23/16 20:13 Dose: 3 ml Aspirin (Aspirin Chewable) 81 mg PO DAILY [facility] Last Admin: 11/23/16 09:23 Dose: Not Given Clopidogrel Bisulfate (Plavix) 75 mg PO DAILY [facility] Last Admin: 11/23/16 10:33 Dose: Not Given Enoxaparin Sodium (Lovenox) 40 mg SC DAILY [facility] Last Admin: 11/23/16 10:32 Dose: Not Given Famotidine (Pepcid) 20 mg IVP BID [facility] Last Admin: 11/23/16 18:35 Dose: 20 mg Fentanyl Citrate 2,500 mcg/ (Sodium Chloride) 250 mls @ 70 mls/hr IV .Q3H35M [facility]; 10 MCG/KG/HR PRN Reason: Protocol Last Admin: 11/23/16 22:11 Dose: Not Given Midazolam HCl 100 mg/ Sodium (Chloride) 100 mls @ 1.4 mls/hr IV .Q24H PRN; Protocol; 0.02 MG/KG/HR PRN Reason: FOLLOW PROTOCOL Last Admin: 11/22/16 18:27 Dose: 1.4 mls/hr Levetiracetam 500 mg/ Sodium (Chloride) 105 mls @ 420 mls/hr IVPB Q12H [facility] Last Admin: 11/23/16 11:45 Dose: 420 mls/hr Furosemide 100 mg/ Sodium (Chloride) 100 mls @ 5 mls/hr IV .Q20H [facility] PRN Reason: 5 MG/HR Last Admin: 11/23/16 18:33 Dose: 5 mls/hr Lactulose (Enulose) 20 gm PO HS PRN PRN Reason: Constipation Last Admin: 11/23/16 05:55 Dose: 20 gm Methylprednisolone (Solu-Medrol) 80 mg IV Q6 [facility] Last Admin: 11/23/16 18:35 Dose: 80 mg - Labs Labs: 11/23/16 06:31 11/23/16 10:36 PT 12.3 SECONDS (9.7-12.2) H 11/16/16 06:24 INR 1.1 11/16/16 06:24 APTT 32 SECONDS (21-34) 11/16/16 06:24 Assessment and Plan (1) Acute respiratory failure with hypoxia Status: Acute (2) Bilateral pneumonia Status: Acute (3) Abdominal pain Status: Acute (4) Anemia Status: Acute (5) COPD (chronic obstructive pulmonary disease) Status: Acute (6) Urinary tract infection Status: Acute - Assessment and Plan (Free Text) Assessment: IMPRESSION; > RESPIRATORY FAILURE/HYPOXIA BILATERAL PNEUMONIA R/O ATYPICAL PNEUMONIA.(HISTORY OF CHANTELL-PARAPSILOSIS PNEUMONIA SEP 2016 S/FOB ) S/P VATS AND CT/WEDGE BX RLL R/O ILD/FIBROSIS VS OCCULT INFECTION > EXACERBATION OF COPD. > ABDOMINAL PAIN -PARTIAL SMALL BOWEL OBSTRUCTION. (CT ABD /PELVIS-SEE REPORT ) HX OF EXPLORATORY LAP/LYLE AUG 2016. > UROSEPSIS +VE kLEBSIELLA PNEUMONIAE/ S/P CANDIDURIA > CHF./CAD. > ANEMIA SOURCE NOT CLEAR R/O gi BLEEDING >HISTORY OF SERONEGATIVE LUPUS ON PLAQUENIL. >DEPRESSION/ANXIETY. PLAN; PATIENT high-DOSE STEROIDS PER TRAINING MGR AND PULMONARY AWAITING BIOPSY AND APPROPRIATE CULTURES.. oFF iv CIPRO 400 MG EVERY 12 HOURLY 11/13/16 - 11/21/16S NOTED CASE DISCUSSED WITH RESIDENT AND STAFF. aWAITING BIOPSY REPORT. pATIENT HAS A RIGHT CHEST TUBE IN .PULMONARY TOILET. MONITOR RENAL FUNCTIONS CLOSELY. WATCH h&h.
[2016-11-24] MEDS: Albuterol-Ipratrop 3 mg / 0.5 (3 ml) UD INH SCH ×4 (02:08→19:26)
[2016-11-24] MEDS: MethylPREDNISolone 40 mg Vial IV SCH ×3 (05:11→21:10)
[2016-11-24 05:44] LABS: ABG ALLEN TEST POS; ABG MECHANICAL RATE 16; ARTERIAL BLOOD HGB O2 SAT 91.7 % (95.0-98.0); ATERIAL BLOOD GAS PEEP 12; CARBOXYHEMOGLOBIN 2.9 % (0.5-1.5); DRAW SITE RR; HHB 4.3 % (0.0-5.0)
[2016-11-24 06:14] LABS: BASO % 0.2 % (0.0-2.0); LYMPH # 1.1 K/uL (1.0-4.3)
[2016-11-24 06:26] LABS: CHLORIDE 100 mmol/L (98-107)
[2016-11-24 06:27] LABS: POTASSIUM 4.1 mmol/L (3.6-5.2); SODIUM 149 mmol/L (132-148)
[2016-11-24 06:30] LABS: ALKALINE PHOSPHATASE 95 U/L (38-126); ALT/SGPT 21 U/L (9-52); AST/SGOT 23 U/L (14-36); BILIRUBIN,TOTAL 0.9 mg/dL (0.2-1.3); BLOOD UREA NITROGEN 50 mg/dL (7-17); GFR AFRICAN-AMERICAN > 60; GLUCOSE,RANDOM 135 mg/dL (65-105); PHOSPHOROUS 4.8 mg/dL (2.5-4.5); TOTAL PROTEIN 5.7 g/dL (6.3-8.3)
[2016-11-24 06:31] LABS: CALCIUM 8.2 mg/dl (8.6-10.4); MAGNESIUM 1.9 mg/dL (1.6-2.3)
[2016-11-24 06:34] LABS: HEMATOCRIT 26.5 % (34.0-47.0); LYMPH % 4.8 % (20.0-40.0); MEAN CELL VOLUME 89.1 fL (81.0-99.0); MEAN CORPUSCULAR HGB CONC 32.5 g/dL (33.0-37.0); MONO % 4.2 % (0.0-10.0); PLATELET COUNT 270 K/uL (130-400); RED CELL DISTRIBUTION WIDTH 16.8 % (11.5-14.5); WHITE BLOOD COUNT 23.9 K/uL (4.8-10.8)
[2016-11-24] MEDS: Sucralfate 1 gm/10 ml Oral Susp UD PO SCH ×3 (06:56→18:03)
[2016-11-24 06:57] LABS: CARBON DIOXIDE 41 mmol/L (22-30)
[2016-11-24 08:22] LABS: NEUTROPHIL 93 % (50-75); TOTAL CELLS COUNTED 100
--- NOTE | 2016-11-24 09:28 | RAD ---
HISTORY: intubation COMPARISON: 11/23/2016 FINDINGS: LUNGS: Lines and tubes in stable position. Persistent diffuse reticular nodular consolidation throughout both lungs. Elevated left hemidiaphragm. Suggestion of a tiny right apical pneumothorax. Nodularity at the right lung base. PLEURA: As above. CARDIOVASCULAR: Normal. OSSEOUS STRUCTURES: No significant abnormalities. VISUALIZED UPPER ABDOMEN: Normal. OTHER FINDINGS: None. IMPRESSION: Lines and tubes in stable position. Persistent diffuse reticular nodular consolidation throughout both lungs. Elevated left hemidiaphragm. Suggestion of a tiny right apical pneumothorax. Nodularity at the right lung base.
[2016-11-24] MEDS: Enoxaparin 40 mg Syringe SC SCH (09:49)
[2016-11-24] MEDS: Acyclovir 500 MG in Sodium Chloride 0.9% 100 ML IV SCH ×2 (09:57→21:10)
[2016-11-24] MEDS: levETIRAcetam 500 MG in Sodium Chloride 0.9% 100 ML IVPB SCH ×2 (10:28→22:10)
--- NOTE | 2016-11-24 10:51 | CP.PCM.PN ---
Subjective - Date & Time of Evaluation Date of Evaluation: 11/24/16 Time of Evaluation: 07:45 - Subjective Subjective: Cardiothoracic Surgery Note for Dr. Chan This 51F was seen and examined this AM at bedside. The nurse reports no acute events overnight the patient remains intubated. The patient is currently awake and alert on a midazolam, no pressors at this time. Pt remains tachycardic and normotensive, Saturating low 90s% on 100%O2 12 PEEP, 400ml. Her CT output remains minimal. Objective - Vital Signs/Intake and Output Vital Signs (last 24 hours): Temp Pulse Resp BP Pulse Ox 99.7 F H 122 H 18 124/88 95 11/24/16 08:00 11/24/16 10:00 11/24/16 10:00 11/24/16 10:00 11/24/16 10:00 Intake and Output: 11/24/16 11/24/16 06:59 18:59 Intake Total 1539.7 339.4 Output Total 2004 1295 Balance -465.3 -955.6 - Medications Medications: Current Medications Albuterol/Ipratropium (Duoneb 3 Mg/0.5 Mg (3 Ml) Ud) 3 ml INH RQ6 [facility] Last Admin: 11/24/16 07:34 Dose: 3 ml Aspirin (Aspirin Chewable) 81 mg PO DAILY [facility] Last Admin: 11/23/16 09:23 Dose: Not Given Clopidogrel Bisulfate (Plavix) 75 mg PO DAILY [facility] Last Admin: 11/23/16 10:33 Dose: Not Given Enoxaparin Sodium (Lovenox) 40 mg SC DAILY [facility] Last Admin: 11/24/16 09:49 Dose: 40 mg Fentanyl Citrate 2,500 mcg/ (Sodium Chloride) 250 mls @ 70 mls/hr IV .Q3H35M [facility]; 10 MCG/KG/HR PRN Reason: Protocol Last Admin: 11/24/16 09:37 Dose: Not Given Midazolam HCl 100 mg/ Sodium (Chloride) 100 mls @ 1.4 mls/hr IV .Q24H PRN; Protocol; 0.02 MG/KG/HR PRN Reason: FOLLOW PROTOCOL Last Titration: 11/24/16 08:34 Dose: 0.04 mg/kg/hr Levetiracetam 500 mg/ Sodium (Chloride) 105 mls @ 420 mls/hr IVPB Q12H [facility] Last Admin: 11/24/16 10:28 Dose: 420 mls/hr Acyclovir 500 mg/ Sodium (Chloride) 100 mls @ 100 mls/hr IV Q12H [facility] Last Admin: 11/24/16 09:57 Dose: 100 mls/hr Lactulose (Enulose) 20 gm PO HS PRN PRN Reason: Constipation Last Admin: 11/23/16 05:55 Dose: 20 gm Methylprednisolone (Solu-Medrol) 60 mg IV Q8 [facility] Pantoprazole Sodium (Protonix Inj) 40 mg IVP Q12H [facility] Last Admin: 11/24/16 06:56 Dose: 40 mg Quetiapine Fumarate (Seroquel) 25 mg PO DAILY [facility] Last Admin: 11/24/16 10:28 Dose: 25 mg Sertraline HCl (Zoloft) 25 mg PO DAILY [facility] Last Admin: 11/24/16 09:57 Dose: 25 mg Sucralfate (Carafate Oral Susp) 1 gm PO Q6H [facility] Last Admin: 11/24/16 06:56 Dose: 1 gm - Labs Labs: 11/24/16 06:06 11/24/16 06:06 PT 12.3 SECONDS (9.7-12.2) H 11/16/16 06:24 INR 1.1 11/16/16 06:24 APTT 32 SECONDS (21-34) 11/16/16 06:24 - Constitutional Appears: No Acute Distress - Head Exam Head Exam: ATRAUMATIC, NORMOCEPHALIC - Eye Exam Eye Exam: EOMI, Normal appearance - Neck Exam Neck Exam: Full ROM - Respiratory Exam Additional comments: Intubated and ventilated - Cardiovascular Exam Cardiovascular Exam: +S1, +S2 - GI/Abdominal Exam GI & Abdominal Exam: Soft. absent: Guarding, Rigid, Tenderness - Extremities Exam Extremities Exam: Normal Inspection. absent: Pedal Edema, Tenderness - Neurological Exam Neurological Exam: Alert, Awake - Skin Skin Exam: Dry, Intact, Normal Color Assessment and Plan - Assessment and Plan (Free Text) Assessment: 51F with pulmonary fibrosis s/p R VATS with wedge resection & CT placement POD#7 Plan: - Increased Leukocytosis followup AM labs - Cont CT on suction; monitor output - F/U Daily CXR - f/u pathology D/W Dr. Dustin Gonzales PGY-1
--- NOTE | 2016-11-24 12:06 | CP.CCUPN ---
<Mariana Robison - Last Filed: 11/24/16 12:02> CCU Subjective - Physician Review Events Since Last Encounter (Free Text): 11/24/16 12:02 No changes Subjective (Free Text): 11/10/16 12:04 Pt S & E this AM. Reports ab pain and SOB improved- on VTM. Had soft unformed BMs x 2 yesterday, 1 liquid stool today with large volume flatus. Denies N/V/F/C, chest pain. 11/11/16 12:38 Pt S & E this AM. Pt reports having 3 liquid stools yesterday, continues to require VTM 2/2 SOB, insomnia. Abdominal pain much improved, abdominal distention much improved. Denies N/V/F/C, chest pain. 11/12/16 14:26 Pt S & E this AM. Pt reports continued SOB, likes being on Bipap 2/2 less work to breathe. Ab pain improved, continues with liquid stools, now has non productive cough. 11/13/16 16:55 Pt S & E this AM. Pt continues w/SOB requiring Bipap overnight, using more Bipap vs. VTM mask, states she had insomnia overnight 2/2 SOB, needing to focus on breathing. Abdominal pain resolved. Had slight nausea yesterday with protein supplement. Had 1 liquid BM yesterday. Denies emesis, fevers, chills, chest pain. 11/16/16 13:44 P S & E this AM. Pt on BiPAP -tolerating it well. Pt admits to epigastric abdominal pain, hunger -asking for food. For OR tomorrow for bronchoscopy and wedge biopsy with Dr. Chan. 11/17/16 12:40 Pt S & E this AM. Pt stable on BiPAP confortable overnight. Continued epigastric pain but tolerating diet intermittently. No BM despite SS enema & colace. For bronchoscopy and wedge biopsy today with Dr. Chan. 11/18/16 18:07 Pt S & E this AM. Pt intubated/sedated, but alert, awake. Gesturing that her abdominal pain has resolved. 11/19/16 12:34 Pt S & E this AM. Pt intubated/sedated, but alert & awake. C/O chest wall pain, asking for sleep medication. 11/20/16 14:57 Pt S & E this AM. Pt intubated/sedated, but alert, awake, no abdominal pain, stable. 11/23/16 11:41 Pt S & E this AM. Pt intubated/sedated, but alert, awake, no complaints, denies abdominal pain. Asking for ET tube to be removed. 11/24/16 12:02 Pt S & E this AM. Pt still intubated/sedated, but alert/awake, gesturing that her mouth is dry, asking if she is going to . Will re-start psych meds for comfort. Critical Care Time Spent (in minutes): 60 CCU Objective - Vital Signs / Intake & Output Vital Signs (Last 4 hours): Vital Signs Pulse Resp BP Pulse Ox 11/24/16 11:00 130 H 28 H 106/66 98 11/24/16 10:00 122 H 18 124/88 95 11/24/16 09:00 124 H 20 132/85 93 L Intake and Output (Last 8hrs): Intake & Output 11/23/16 11/24/16 11/24/16 22:59 06:59 14:59 Intake Total 644.9 1299.8 422.6 Output Total 420 1765 1695 Balance 224.9 -465.2 -1272.4 Weight 60.781 kg Intake: Intake, IV Amount 159.9 489.8 362.6 Right Internal Jugular 100 Right Medial Port 15 40 115.0 Internal Jugular Right Distal Port 4.2 14.8 13.1 Internal Jugular Right Proximal Port 140.7 335.0 234.5 Internal Jugular Tube Feeding 160 160 60 Blood Product 325 650 Red Blood Cells Cp2d As3 0 325 Lr Unit [id number] Output: Gastric Amount 300 Stomach 300 Urine 420 1765 1395 Urethral (Mishra) 420 1765 1395 Other: # Bowel Movements 1 1 0 - Physical Exam Head: Positive for: Atraumatic, Normocephalic Pupils: Positive for: PERRL Extroacular Muscles: Positive for: EOMI Conjunctiva: Positive for: Normal Ears: Positive for: Normal Mouth: Positive for: Dry, Other (ET & OG tubes in place) Pharnyx: Positive for: Normal Nose (External): Positive for: Atraumatic Neck: Positive for: Normal Range of Motion, Trachea Midline, Other (Right IJ (- ) erythema/drainage) Respiratory/Chest: Positive for: Good Air Exchange, Accessory Muscle Use, Wheezes (mild), Decreased Breath Sounds, Rhonchi (diffuse). Negative for: Clear to Auscultation (coarse BS b/l), Respiratory Distress, Rales, Retracting Cardiovascular: Positive for: Normal S1, S2, Peripheal Pulses Present, Tachycardic. Negative for: Murmurs, Rub, Gallop Abdomen: Negative for: Tenderness, Distention, Normal Bowel Sounds (hypoactive) , Peritoneal Signs, Rebound, Guarding Upper Extremity: Positive for: Normal Inspection. Negative for: Cyanosis, Edema Lower Extremity: Positive for: Normal Inspection. Negative for: Edema Neurological: Positive for: Other (intubated/sedated). Negative for: GCS=15, Speech Normal Skin: Positive for: Warm, Dry, Normal Color. Negative for: Rashes Psychiatric: Positive for: Alert, Normal Insight - Medications Active Medications: Active Medications Generic Name Dose Route Start Last Admin Trade Name Freq PRN Reason Stop Dose Admin Albuterol/Ipratropium 3 ml 11/19/16 02:00 11/24/16 07:34 Duoneb 3 Mg/0.5 Mg (3 Ml) Ud INH 3 ml RQ6 BALBINA Administration Aspirin 81 mg 11/07/16 10:00 11/23/16 09:23 Aspirin Chewable PO Not Given DAILY BALBINA Clopidogrel Bisulfate 75 mg 11/07/16 10:00 11/23/16 10:33 Plavix PO Not Given DAILY BALBINA Enoxaparin Sodium 40 mg 11/07/16 10:00 11/24/16 09:49 Lovenox SC 40 mg DAILY BALBINA Administration Fentanyl Citrate 2,500 mcg/ 250 mls @ 70 mls/hr 11/19/16 10:35 11/24/16 11:53 Sodium Chloride IV 49 mls/hr .Q3H35M BALBINA Administration Protocol 10 MCG/KG/HR Midazolam HCl 100 mg/ Sodium 100 mls @ 1.4 mls/hr 11/20/16 15:00 11/24/16 08:34 Chloride IV 0.04 mg/kg/hr .Q24H PRN Titration FOLLOW PROTOCOL Protocol 0.02 MG/KG/HR Levetiracetam 500 mg/ Sodium 105 mls @ 420 mls/hr 11/21/16 11:00 11/24/16 10:28 Chloride IVPB 420 mls/hr Q12H BALBINA Administration Acyclovir 500 mg/ Sodium 100 mls @ 100 mls/hr 11/24/16 10:00 11/24/16 09:57 Chloride IV 100 mls/hr Q12H BALBINA Administration Lactulose 20 gm 11/20/16 09:28 11/23/16 05:55 Enulose PO 20 gm HS PRN Administration Constipation Methylprednisolone 60 mg 11/24/16 14:00 Solu-Medrol IV Q8 BALBINA Pantoprazole Sodium 40 mg 11/24/16 07:00 11/24/16 06:56 Protonix Inj IVP 40 mg Q12H BALBINA Administration Quetiapine Fumarate 25 mg 11/24/16 10:00 11/24/16 10:28 Seroquel PO 25 mg DAILY BALBINA Administration Sertraline HCl 25 mg 11/24/16 10:00 11/24/16 09:57 Zoloft PO 25 mg DAILY BALBINA Administration Sucralfate 1 gm 11/24/16 07:00 11/24/16 06:56 Carafate Oral Susp PO 1 gm Q6H BALBINA Administration - Patient Studies Lab Studies: Lab Studies 11/24/16 11/24/16 11/23/16 Range/Units 06:06 05:36 15:45 WBC 23.9 H (4.8-10.8) K/uL RBC 2.98 L (3.80-5.20) Mil/uL Hgb 8.6 L (11.0-16.0) g/dL Hct 26.5 L (34.0-47.0) % MCV 89.1 D (81.0-99.0) fL MCH 29.0 (27.0-31.0) pg MCHC 32.5 L (33.0-37.0) g/dL RDW 16.8 H (11.5-14.5) % Plt Count 270 D (130-400) K/uL MPV 8.0 (7.2-11.7) fL Neut % (Auto) 90.8 H (50.0-75.0) % Lymph % (Auto) 4.8 L (20.0-40.0) % Bath % (Auto) 4.2 (0.0-10.0) % Eos % (Auto) 0.0 (0.0-4.0) % Baso % (Auto) 0.2 (0.0-2.0) % Neut # 21.7 H (1.8-7.0) K/uL Lymph # 1.1 (1.0-4.3) K/uL Bath # 1.0 H (0.0-0.8) K/uL Eos # 0.0 (0.0-0.7) K/uL Baso # 0.0 (0.0-0.2) K/uL Neutrophils % (Manual) 93 H (50-75) % Lymphocytes % (Manual) 4 L (20-40) % Monocytes % (Manual) 3 (0-10) % Toxic Granulation Present Platelet Estimate Normal (NORMAL) Polychromasia Slight Hypochromasia (manual) Slight Anisocytosis (manual) Slight Puncture Site Rr Rra pCO2 69 H 60 H (35-45) mm/Hg pO2 65 L 88 (80-100) mm/Hg HCO3 38.0 H 36.0 H (21-28) mmol/L ABG pH 7.41 7.43 (7.35-7.45) ABG Total CO2 45.8 H 41.6 H (22-28) mmol/L ABG O2 Saturation 95.5 98.0 (95-98) % ABG Base Excess 16.8 H 14.2 H (-2.0-3.0) mmol/L ABG Hemoglobin 8.7 L 5.7 L (11.7-17.4) g/dL ABG Carboxyhemoglobin 2.9 H 2.0 H (0.5-1.5) % POC ABG HHb (Measured) 4.3 1.9 (0.0-5.0) % ABG Methemoglobin 1.0 1.0 (0.0-3.0) % Reese Test Pos Pos A-a O2 Difference 562.0 550.0 mm/Hg Respiratory Index 8.6 6.3 Hgb O2 Saturation 91.7 L 95.1 (95.0-98.0) % Mechanical Rate 16 16 FiO2 100.0 100.0 % Tidal Volume 400 400 PEEP 12 12 Crit Value Called To Dr hinojosa Crit Value Called By Chantel avila Crit Value Read Back Y Blood Gas Notified Time 1555 Sodium 149 H (132-148) mmol/L Potassium 4.1 (3.6-5.2) mmol/L Chloride 100 (98-107) mmol/L Carbon Dioxide 41 H* (22-30) mmol/L Anion Gap 12 (10-20) BUN 50 H (7-17) mg/dL Creatinine 1.0 (0.7-1.2) MG/DL Est GFR ( Amer) > 60 Est GFR (Non-Af Amer) 59 Random Glucose 135 H (65-105) mg/dL Calcium 8.2 L (8.6-10.4) mg/dl Phosphorus 4.8 H (2.5-4.5) mg/dL Magnesium 1.9 (1.6-2.3) mg/dL Total Bilirubin 0.9 (0.2-1.3) mg/dL AST 23 (14-36) U/L ALT 21 (9-52) U/L Alkaline Phosphatase 95 (38-126) U/L Total Protein 5.7 L (6.3-8.3) g/dL Albumin 2.9 L D (3.5-5.0) g/dL Globulin 2.8 (2.2-3.9) gm/dL Albumin/Globulin Ratio 1.0 (1.0-2.1) Blood Type Antibody Screen 11/23/16 Range/Units 12:30 WBC (4.8-10.8) K/uL RBC (3.80-5.20) Mil/uL Hgb (11.0-16.0) g/dL Hct (34.0-47.0) % MCV (81.0-99.0) fL MCH (27.0-31.0) pg MCHC (33.0-37.0) g/dL RDW (11.5-14.5) % Plt Count (130-400) K/uL MPV (7.2-11.7) fL Neut % (Auto) (50.0-75.0) % Lymph % (Auto) (20.0-40.0) % Bath % (Auto) (0.0-10.0) % Eos % (Auto) (0.0-4.0) % Baso % (Auto) (0.0-2.0) % Neut # (1.8-7.0) K/uL Lymph # (1.0-4.3) K/uL Bath # (0.0-0.8) K/uL Eos # (0.0-0.7) K/uL Baso # (0.0-0.2) K/uL Neutrophils % (Manual) (50-75) % Lymphocytes % (Manual) (20-40) % Monocytes % (Manual) (0-10) % Toxic Granulation Platelet Estimate (NORMAL) Polychromasia Hypochromasia (manual) Anisocytosis (manual) Puncture Site pCO2 (35-45) mm/Hg pO2 (80-100) mm/Hg HCO3 (21-28) mmol/L ABG pH (7.35-7.45) ABG Total CO2 (22-28) mmol/L ABG O2 Saturation (95-98) % ABG Base Excess (-2.0-3.0) mmol/L ABG Hemoglobin (11.7-17.4) g/dL ABG Carboxyhemoglobin (0.5-1.5) % POC ABG HHb (Measured) (0.0-5.0) % ABG Methemoglobin (0.0-3.0) % Reese Test A-a O2 Difference mm/Hg Respiratory Index Hgb O2 Saturation (95.0-98.0) % Mechanical Rate FiO2 % Tidal Volume PEEP Crit Value Called To Crit Value Called By Crit Value Read Back Blood Gas Notified Time Sodium (132-148) mmol/L Potassium (3.6-5.2) mmol/L Chloride (98-107) mmol/L Carbon Dioxide (22-30) mmol/L Anion Gap (10-20) BUN (7-17) mg/dL Creatinine (0.7-1.2) MG/DL Est GFR ( Amer) Est GFR (Non-Af Amer) Random Glucose (65-105) mg/dL Calcium (8.6-10.4) mg/dl Phosphorus (2.5-4.5) mg/dL Magnesium (1.6-2.3) mg/dL Total Bilirubin (0.2-1.3) mg/dL AST (14-36) U/L ALT (9-52) U/L Alkaline Phosphatase (38-126) U/L Total Protein (6.3-8.3) g/dL Albumin (3.5-5.0) g/dL Globulin (2.2-3.9) gm/dL Albumin/Globulin Ratio (1.0-2.1) Blood Type AB POSITIVE Antibody Screen Negative Laboratory Results - last 24 hr 11/23/16 11/23/16 11/24/16 12:30 15:45 05:36 WBC RBC Hgb Hct MCV MCH MCHC RDW Plt Count MPV Neut % (Auto) Lymph % (Auto) Bath % (Auto) Eos % (Auto) Baso % (Auto) Neut # Lymph # Bath # Eos # Baso # Neutrophils % (Manual) Lymphocytes % (Manual) Monocytes % (Manual) Toxic Granulation Platelet Estimate Polychromasia Hypochromasia (manual) Anisocytosis (manual) Puncture Site Rra Rr pCO2 60 H 69 H pO2 88 65 L HCO3 36.0 H 38.0 H ABG pH 7.43 7.41 ABG Total CO2 41.6 H 45.8 H ABG O2 Saturation 98.0 95.5 ABG Base Excess 14.2 H 16.8 H ABG Hemoglobin 5.7 L 8.7 L ABG Carboxyhemoglobin 2.0 H 2.9 H POC ABG HHb (Measured) 1.9 4.3 ABG Methemoglobin 1.0 1.0 Reese Test Pos Pos A-a O2 Difference 550.0 562.0 Respiratory Index 6.3 8.6 Hgb O2 Saturation 95.1 91.7 L Mechanical Rate 16 16 FiO2 100.0 100.0 Tidal Volume 400 400 PEEP 12 12 Crit Value Called To Dr hinojosa Crit Value Called By Chantel avila Crit Value Read Back Y Blood Gas Notified Time 1555 Sodium Potassium Chloride Carbon Dioxide Anion Gap BUN Creatinine Est GFR ( Amer) Est GFR (Non-Af Amer) Random Glucose Calcium Phosphorus Magnesium Total Bilirubin AST ALT Alkaline Phosphatase Total Protein Albumin Globulin Albumin/Globulin Ratio Blood Type AB POSITIVE Antibody Screen Negative 11/24/16 06:06 WBC 23.9 H RBC 2.98 L Hgb 8.6 L Hct 26.5 L MCV 89.1 D MCH 29.0 MCHC 32.5 L RDW 16.8 H Plt Count 270 D MPV 8.0 Neut % (Auto) 90.8 H Lymph % (Auto) 4.8 L Bath % (Auto) 4.2 Eos % (Auto) 0.0 Baso % (Auto) 0.2 Neut # 21.7 H Lymph # 1.1 Bath # 1.0 H Eos # 0.0 Baso # 0.0 Neutrophils % (Manual) 93 H Lymphocytes % (Manual) 4 L Monocytes % (Manual) 3 Toxic Granulation Present Platelet Estimate Normal Polychromasia Slight Hypochromasia (manual) Slight Anisocytosis (manual) Slight Puncture Site pCO2 pO2 HCO3 ABG pH ABG Total CO2 ABG O2 Saturation ABG Base Excess ABG Hemoglobin ABG Carboxyhemoglobin POC ABG HHb (Measured) ABG Methemoglobin Reese Test A-a O2 Difference Respiratory Index Hgb O2 Saturation Mechanical Rate FiO2 Tidal Volume PEEP Crit Value Called To Crit Value Called By Crit Value Read Back Blood Gas Notified Time Sodium 149 H Potassium 4.1 Chloride 100 Carbon Dioxide 41 H* Anion Gap 12 BUN 50 H Creatinine 1.0 Est GFR ( Amer) > 60 Est GFR (Non-Af Amer) 59 Random Glucose 135 H Calcium 8.2 L Phosphorus 4.8 H Magnesium 1.9 Total Bilirubin 0.9 AST 23 ALT 21 Alkaline Phosphatase 95 Total Protein 5.7 L Albumin 2.9 L D Globulin 2.8 Albumin/Globulin Ratio 1.0 Blood Type Antibody Screen Review of Systems - Review of Systems Systems not reviewed;Unavailable: Intubated Critical Care Progress Note - Ventilator Checklist Head of Bed 30 Degrees: Yes Daily Sedation Vacation: Yes Daily Assessment of Readiness to Learn: Yes Daily Spontaneous Breathing Trial: Yes PUD Prophalyxis: Yes DVT Prophylaxis: Yes Oral Care with Chlorhexidine Gluconate {CHG}: Yes - Vent Settings MODE:: PRVC TIDAL VOLUME:: 400 RESP RATE:: 16 FIO2:: 100 PEEP:: 12 - Extremities/Vascular Does the Patient have a Central Venous Catheter?: Yes Insertion Site: Internal Jugular Vein Does the Patient need a Central Venous Catheter?: Yes (vascular access) Does the Patient have a Mishra Catheter?: Yes Does the Patient need a Mishra Catheter?: Yes Catheter Insertion Criteria: Need for accurate measurement of output in critically ill patient - Prophylaxis GI Prophylaxis GI: Pepsid - Prophylaxis DVT Prophylaxis DVT: Lovenox, SCDs Assessment/Plan - Assessment and Plan (Free Text) Assessment: 51F POD#6 s/p RLL wedge resection, intubated/sedated, still needs high pulmonary support measures on mech vent. Pt alert and awake, asking for sponge stick to wet mouth. Plan: Neuro Awake Alert Sedated- Fentanyl drip, Propofol drip, Versed drip Cont home meds: Zoloft restarted, Keppra Started Seroquel Seizure precautions Monitor CVS ASA Plavix Monitor Pulm POD#6 s/p RLL wedge resection ABG pH 7.41 O2 65, CO2 69, HCO3 38.0 Lasix drip d/c'd Diamox d/c'd Intubated ON mech vent protective lung protocol Duonebs Solu-medrol dose decreased CXR - Persistent diffuse reticular nodular consolidation throughout B/L lungs. Elevated L hemidiaphragm. Suggestion of a tiny R apical pneumothorax. Nodularity at R lung base. FU path Pulm following Nephro Hyperphosphatemia- resolved Monitor GI OGT in place - to suction Tube feeds held 2/2 to gastric distention on CXR Lactulose HS Gen surg following- SBO mgmt as per surgery Mishra in place MOnitor UOP Heme Hgb 8.6 from 6.9 s/p 2 units pRBCs Hct 26.5 from 22.4 FOB Monitor for bleeding CT w/small amount of serosanguinous output Endo Sugars WNL Monitor MSK Monitor for skin break down ID Leukocytosis 23.9- increaisng Started Acyclovir Afebrile over last 24H Tylenol PRN ID following- CMV neg GI/DVT ppx Pepcid SCDs Lovenox Dispo: Cont ICU care On mech vent Tissue bx w/interstitial pneumonitis late stage, organizing PNA as per path- awaiting offical report DW attending - Date & Time Date: 11/24/16 Time: 06:45 <Hunter Graham - Last Filed: 11/24/16 16:16> CCU Objective - Vital Signs / Intake & Output Vital Signs (Last 4 hours): Vital Signs Temp Pulse Resp BP Pulse Ox 11/24/16 16:00 99.7 F H 133 H 24 100/63 98 11/24/16 15:00 122 H 25 H 124/66 96 11/24/16 14:00 123 H 24 126/60 98 11/24/16 13:00 126 H 24 103/52 L 96 Intake and Output (Last 8hrs): Intake & Output 11/24/16 11/24/16 11/24/16 06:59 14:59 22:59 Intake Total 1299.8 664.6 99.8 Output Total 1765 1915 100 Balance -465.2 -1250.4 -0.2 Weight 134 lb Intake: Intake, IV Amount 489.8 604.6 99.8 Right Internal Jugular 100 Right Medial Port 40 215.0 Internal Jugular Right Distal Port 14.8 21.1 6 Internal Jugular Right Proximal Port 335.0 368.5 93.8 Internal Jugular Tube Feeding 160 60 0 Blood Product 650 Red Blood Cells Cp2d As3 325 Lr Unit [id number] Output: Gastric Amount 300 Stomach 300 Urine 1765 1615 100 Urethral (Mishra) 1765 1615 100 Other: # Bowel Movements 1 0 0 - Medications Active Medications: Active Medications Generic Name Dose Route Start Last Admin Trade Name Freq PRN Reason Stop Dose Admin Albuterol/Ipratropium 3 ml 11/19/16 02:00 11/24/16 13:20 Duoneb 3 Mg/0.5 Mg (3 Ml) Ud INH 3 ml RQ6 BALBINA Administration Aspirin 81 mg 11/07/16 10:00 11/23/16 09:23 Aspirin Chewable PO Not Given DAILY BALBINA Clopidogrel Bisulfate 75 mg 11/07/16 10:00 11/23/16 10:33 Plavix PO Not Given DAILY BALBINA Enoxaparin Sodium 40 mg 11/07/16 10:00 11/24/16 09:49 Lovenox SC 40 mg DAILY BALBINA Administration Fentanyl Citrate 2,500 mcg/ 250 mls @ 70 mls/hr 11/19/16 10:35 11/24/16 14:00 Sodium Chloride IV 7 mcg/kg/hr .Q3H35M BALBINA Titration Protocol 10 MCG/KG/HR Midazolam HCl 100 mg/ Sodium 100 mls @ 1.4 mls/hr 11/20/16 15:00 11/24/16 15:38 Chloride IV 3 mls/hr .Q24H PRN Administration FOLLOW PROTOCOL Protocol 0.02 MG/KG/HR Levetiracetam 500 mg/ Sodium 105 mls @ 420 mls/hr 11/21/16 11:00 11/24/16 10:28 Chloride IVPB 420 mls/hr Q12H BALBINA Administration Acyclovir 500 mg/ Sodium 100 mls @ 100 mls/hr 11/24/16 10:00 11/24/16 09:57 Chloride IV 100 mls/hr Q12H BALBINA Administration Lactulose 20 gm 11/20/16 09:28 11/23/16 05:55 Enulose PO 20 gm HS PRN Administration Constipation Methylprednisolone 60 mg 11/24/16 14:00 11/24/16 13:05 Solu-Medrol IV 60 mg Q8 BALBINA Administration Pantoprazole Sodium 40 mg 11/24/16 07:00 11/24/16 06:56 Protonix Inj IVP 40 mg Q12H BALBINA Administration Quetiapine Fumarate 25 mg 11/24/16 10:00 11/24/16 10:28 Seroquel PO 25 mg DAILY BALBINA Administration Sertraline HCl 25 mg 11/24/16 10:00 11/24/16 09:57 Zoloft PO 25 mg DAILY BALBINA Administration Sucralfate 1 gm 11/24/16 07:00 11/24/16 13:04 Carafate Oral Susp PO 1 gm Q6H BALBINA Administration - Patient Studies Lab Studies: Lab Studies 11/24/16 11/24/16 11/23/16 Range/Units 06:06 05:36 12:30 WBC 23.9 H (4.8-10.8) K/uL RBC 2.98 L (3.80-5.20) Mil/uL Hgb 8.6 L (11.0-16.0) g/dL Hct 26.5 L (34.0-47.0) % MCV 89.1 D (81.0-99.0) fL MCH 29.0 (27.0-31.0) pg MCHC 32.5 L (33.0-37.0) g/dL RDW 16.8 H (11.5-14.5) % Plt Count 270 D (130-400) K/uL MPV 8.0 (7.2-11.7) fL Neut % (Auto) 90.8 H (50.0-75.0) % Lymph % (Auto) 4.8 L (20.0-40.0) % Bath % (Auto) 4.2 (0.0-10.0) % Eos % (Auto) 0.0 (0.0-4.0) % Baso % (Auto) 0.2 (0.0-2.0) % Neut # 21.7 H (1.8-7.0) K/uL Lymph # 1.1 (1.0-4.3) K/uL Bath # 1.0 H (0.0-0.8) K/uL Eos # 0.0 (0.0-0.7) K/uL Baso # 0.0 (0.0-0.2) K/uL Neutrophils % (Manual) 93 H (50-75) % Lymphocytes % (Manual) 4 L (20-40) % Monocytes % (Manual) 3 (0-10) % Toxic Granulation Present Platelet Estimate Normal (NORMAL) Polychromasia Slight Hypochromasia (manual) Slight Anisocytosis (manual) Slight Puncture Site Rr pCO2 69 H (35-45) mm/Hg pO2 65 L (80-100) mm/Hg HCO3 38.0 H (21-28) mmol/L ABG pH 7.41 (7.35-7.45) ABG Total CO2 45.8 H (22-28) mmol/L ABG O2 Saturation 95.5 (95-98) % ABG Base Excess 16.8 H (-2.0-3.0) mmol/L ABG Hemoglobin 8.7 L (11.7-17.4) g/dL ABG Carboxyhemoglobin 2.9 H (0.5-1.5) % POC ABG HHb (Measured) 4.3 (0.0-5.0) % ABG Methemoglobin 1.0 (0.0-3.0) % Reese Test Pos A-a O2 Difference 562.0 mm/Hg Respiratory Index 8.6 Hgb O2 Saturation 91.7 L (95.0-98.0) % Mechanical Rate 16 FiO2 100.0 % Tidal Volume 400 PEEP 12 Sodium 149 H (132-148) mmol/L Potassium 4.1 (3.6-5.2) mmol/L Chloride 100 (98-107) mmol/L Carbon Dioxide 41 H* (22-30) mmol/L Anion Gap 12 (10-20) BUN 50 H (7-17) mg/dL Creatinine 1.0 (0.7-1.2) MG/DL Est GFR ( Amer) > 60 Est GFR (Non-Af Amer) 59 Random Glucose 135 H (65-105) mg/dL Calcium 8.2 L (8.6-10.4) mg/dl Phosphorus 4.8 H (2.5-4.5) mg/dL Magnesium 1.9 (1.6-2.3) mg/dL Total Bilirubin 0.9 (0.2-1.3) mg/dL AST 23 (14-36) U/L ALT 21 (9-52) U/L Alkaline Phosphatase 95 (38-126) U/L Total Protein 5.7 L (6.3-8.3) g/dL Albumin 2.9 L D (3.5-5.0) g/dL Globulin 2.8 (2.2-3.9) gm/dL Albumin/Globulin Ratio 1.0 (1.0-2.1) Blood Type AB POSITIVE Antibody Screen Negative Laboratory Results - last 24 hr 11/23/16 11/24/16 11/24/16 12:30 05:36 06:06 WBC 23.9 H RBC 2.98 L Hgb 8.6 L Hct 26.5 L MCV 89.1 D MCH 29.0 MCHC 32.5 L RDW 16.8 H Plt Count 270 D MPV 8.0 Neut % (Auto) 90.8 H Lymph % (Auto) 4.8 L Bath % (Auto) 4.2 Eos % (Auto) 0.0 Baso % (Auto) 0.2 Neut # 21.7 H Lymph # 1.1 Bath # 1.0 H Eos # 0.0 Baso # 0.0 Neutrophils % (Manual) 93 H Lymphocytes % (Manual) 4 L Monocytes % (Manual) 3 Toxic Granulation Present Platelet Estimate Normal Polychromasia Slight Hypochromasia (manual) Slight Anisocytosis (manual) Slight Puncture Site Rr pCO2 69 H pO2 65 L HCO3 38.0 H ABG pH 7.41 ABG Total CO2 45.8 H ABG O2 Saturation 95.5 ABG Base Excess 16.8 H ABG Hemoglobin 8.7 L ABG Carboxyhemoglobin 2.9 H POC ABG HHb (Measured) 4.3 ABG Methemoglobin 1.0 Reese Test Pos A-a O2 Difference 562.0 Respiratory Index 8.6 Hgb O2 Saturation 91.7 L Mechanical Rate 16 FiO2 100.0 Tidal Volume 400 PEEP 12 Sodium 149 H Potassium 4.1 Chloride 100 Carbon Dioxide 41 H* Anion Gap 12 BUN 50 H Creatinine 1.0 Est GFR ( Amer) > 60 Est GFR (Non-Af Amer) 59 Random Glucose 135 H Calcium 8.2 L Phosphorus 4.8 H Magnesium 1.9 Total Bilirubin 0.9 AST 23 ALT 21 Alkaline Phosphatase 95 Total Protein 5.7 L Albumin 2.9 L D Globulin 2.8 Albumin/Globulin Ratio 1.0 Blood Type AB POSITIVE Antibody Screen Negative Assessment/Plan (1) Respiratory insufficiency Current Visit: Yes Status: Acute (2) Bilateral pneumonia Current Visit: No Status: Acute (3) Small bowel obstruction Current Visit: Yes Status: Acute Attending/Attestation - Attestation I have personally seen and examined this patient.: Yes I have fully participated in the care of the patient.: Yes I have reviewed all pertinent clinical information: Yes Notes (Text): 11/24/16 16:15 Patient seen and examined in the intensive care unit. Case discussed with house staff in the morning rounds. Status post transfusion of 2 units packed RBCs yesterday Remains intubated on ventilatory support FiO2 reduced to 90% with saturation of 95% Afebrile Lung biopsy consistent with organizing pneumonia Continue high-dose steroids Started on acyclovir
[2016-11-24] MEDS: Midazolam 50 mg/10 ml 100 MG in Sodium Chloride 0.9% 80 ML IV PRN (15:38)
--- NOTE | 2016-11-24 22:23 | CP.PCM.PN ---
Subjective - Date & Time of Evaluation Date of Evaluation: 11/24/16 Time of Evaluation: 22:23 - Subjective Subjective: CHIEF COMPLAINTS TODAY : patient in ICU, TEMP 100.8 , TACHYCARDIC BP 89/35 -Remains intubated on ventilat support AWAKE AND ALERT, ASKING FOR ET TUBE TO BE REMOVED DENIES ABDOMINAL PAIN. ROS. HEENT : N. Resp : No cough, +ve rhonchi , no pleuritic CP ,or hemoptysis Cardio : No anginal CP, PND, orthopnea, palpitation GI : NO n/v ,diarrhea or GI bleeding . 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 Ext : No swelling ,calf pain PE. Pt. ON VENTILATOR, RT.IJ CATHETER IN PLACE V.S As noted in the chart Head ,ear nose,throat and eyes : Normal. Neck : Supple with normal carotids. Lungs: BILATERAL RHONCHI AND EXPIRATORY WHEEZE. RT. CT IN PLACE DRAINING SEROSANGUINEOUS DRAINAGE.. Heart : S1 & S2 normal with S4. No murmur. Abd : soft, with HYPOACTIVE bowel sounds. Neuro : Moves all ext. with no localized deficit. Ext : No edema with intact pulses.Non tender calves Bilateral Venodyne. Derm : No rashes or decubitus ulcer. LABS/RADIOLOGY: 11/24/16 WBC 23.9 hhemoglobin 8.9/26.8 Platelets normal Stools negative for occult blood lfts N CMV DNA PCR <200 NOT DETECTED CXR - Diffuse confluent airspace opacities B/L lungs w/prominent increased interstitial lung markings. Not sig changed vs prior study. URINE CULTURE 11/17/16 YEAST SPECIES URINE CULTURE SENSITIVITY 11/08/16 +VE Klebsiella pneumoniae s-Cipro, Primaxin , BLOOD CULTURES 11/08 NEGATIVE FOR 48 HOURS Objective - Vital Signs/Intake and Output Vital Signs (last 24 hours): Temp Pulse Resp BP Pulse Ox 99 F 122 H 20 89/35 L 98 11/24/16 20:00 11/24/16 21:00 11/24/16 21:00 11/24/16 21:00 11/24/16 21:00 Intake and Output: 11/24/16 11/25/16 18:59 06:59 Intake Total 924.2 136.3 Output Total 2195 145 Balance -1270.8 -8.7 - Medications Medications: Current Medications Albuterol/Ipratropium (Duoneb 3 Mg/0.5 Mg (3 Ml) Ud) 3 ml INH RQ6 [facility] Last Admin: 11/24/16 19:26 Dose: 3 ml Aspirin (Aspirin Chewable) 81 mg PO DAILY [facility] Last Admin: 11/23/16 09:23 Dose: Not Given Clopidogrel Bisulfate (Plavix) 75 mg PO DAILY [facility] Last Admin: 11/23/16 10:33 Dose: Not Given Enoxaparin Sodium (Lovenox) 40 mg SC DAILY [facility] Last Admin: 11/24/16 09:49 Dose: 40 mg Fentanyl Citrate 2,500 mcg/ (Sodium Chloride) 250 mls @ 70 mls/hr IV .Q3H35M [facility]; 10 MCG/KG/HR PRN Reason: Protocol Last Admin: 11/24/16 19:39 Dose: Not Given Midazolam HCl 100 mg/ Sodium (Chloride) 100 mls @ 1.4 mls/hr IV .Q24H PRN; Protocol; 0.02 MG/KG/HR PRN Reason: FOLLOW PROTOCOL Last Admin: 11/24/16 15:38 Dose: 3 mls/hr Levetiracetam 500 mg/ Sodium (Chloride) 105 mls @ 420 mls/hr IVPB Q12H [facility] Last Admin: 11/24/16 22:10 Dose: 420 mls/hr Acyclovir 500 mg/ Sodium (Chloride) 100 mls @ 100 mls/hr IV Q12H [facility] Last Admin: 11/24/16 21:10 Dose: 100 mls/hr Micafungin Sodium 100 mg/ (Sodium Chloride) 100 mls @ 100 mls/hr IV Q24H [facility] Lactulose (Enulose) 20 gm PO HS PRN PRN Reason: Constipation Last Admin: 11/23/16 05:55 Dose: 20 gm Methylprednisolone (Solu-Medrol) 60 mg IV Q8 [facility] Last Admin: 11/24/16 21:10 Dose: 60 mg Pantoprazole Sodium (Protonix Inj) 40 mg IVP Q12H [facility] Last Admin: 11/24/16 18:03 Dose: 40 mg Quetiapine Fumarate (Seroquel) 25 mg PO DAILY [facility] Last Admin: 11/24/16 10:28 Dose: 25 mg Sertraline HCl (Zoloft) 25 mg PO DAILY [facility] Last Admin: 11/24/16 09:57 Dose: 25 mg Sucralfate (Carafate Oral Susp) 1 gm PO Q6H [facility] Last Admin: 11/24/16 18:03 Dose: 1 gm - Labs Labs: 11/24/16 06:06 11/24/16 06:06 PT 12.3 SECONDS (9.7-12.2) H 11/16/16 06:24 INR 1.1 11/16/16 06:24 APTT 32 SECONDS (21-34) 11/16/16 06:24 Assessment and Plan (1) Acute respiratory failure with hypoxia Status: Acute (2) Abdominal pain Status: Acute (3) Bilateral pneumonia Status: Acute (4) COPD (chronic obstructive pulmonary disease) Status: Acute (5) Anemia Status: Acute (6) Urinary tract infection Status: Acute - Assessment and Plan (Free Text) Assessment: IMPRESSION; > RESPIRATORY FAILURE/HYPOXIA BILATERAL PNEUMONIA R/O ATYPICAL PNEUMONIA.(HISTORY OF CHANTELL-PARAPSILOSIS PNEUMONIA SEP 2016 S/FOB ) S/P VATS AND CT/WEDGE BX RLL R/O ILD/FIBROSIS VS OCCULT INFECTION > EXACERBATION OF COPD. > lEUKOCYTOSIS ? STEROID VS SEPSIS > ABDOMINAL PAIN -PARTIAL SMALL BOWEL OBSTRUCTION. (CT ABD /PELVIS-SEE REPORT ) HX OF EXPLORATORY LAP/LYLE AUG 2016. > UROSEPSIS +VE kLEBSIELLA PNEUMONIAE/ S/P CANDIDURIA > CHF./CAD. > ANEMIA SOURCE NOT CLEAR R/O gi BLEEDING >HISTORY OF SERONEGATIVE LUPUS ON PLAQUENIL. >DEPRESSION/ANXIETY. PLAN; PATIENT STARTED ON iv ACYCLOVIR NOTED BY RESTORATION ECOLOGIST 11/24/16 pANCULTURES ua URINE CULTURE REPEAT START iv MICAFUNGIN 100 MG iv PIGGYBACK ONCE A DAY DAILY TO COVER FOR FUNGEMIA PATIENT HIGH-DOSE STEROIDS 11/24/16 PATIENT high-DOSE STEROIDS PER RESTORATION ECOLOGIST AND PULMONARY AWAITING BIOPSY AND APPROPRIATE CULTURES.. oFF iv CIPRO 400 MG EVERY 12 HOURLY 11/13/16 - 11/21/16S NOTED pATIENT HAS A RIGHT CHEST TUBE IN PLACE. PULMONARY TOILET. MONITOR RENAL FUNCTIONS CLOSELY. FOLLOW-UP cbc IN A.M./LFTS
[2016-11-24] MEDS: Micafungin 100 MG in Sodium Chloride 0.9% 100 ML IV SCH (23:16)
[2016-11-24] MEDS ORDERED: Sodium Chloride 0.9% 500 ML IV ONE (23:19)
[2016-11-25] MEDS: Sucralfate 1 gm/10 ml Oral Susp UD PO SCH ×4 (00:13→18:10)
[2016-11-25] MEDS: Albuterol-Ipratrop 3 mg / 0.5 (3 ml) UD INH SCH ×4 (01:00→19:25)
[2016-11-25 01:19] LABS: RBC URINE 4 /hpf (0-3); URINE BACTERIA RARE (<OCC); URINE BILIRUBIN NEGATIVE (NEGATIVE); URINE BLOOD NEGATIVE (NEGATIVE); URINE COLOR Yellow (YELLOW); URINE GLUCOSE (UA) NORMAL (Normal); URINE KETONE NEGATIVE (NEGATIVE); URINE LEUKOCYTE ESTERASE NEG Leu/uL (Negative); URINE PROTEIN NEGATIVE (NEGATIVE); URINE UROBILINOGEN NORMAL mg/dL (0.2-1.0); WBC URINE 6 /hpf (0-5)
[2016-11-25 05:45] LABS: ABG ALLEN TEST POS; ABG MECHANICAL RATE 20; ARTERIAL BLOOD HGB O2 SAT 95.9 % (95.0-98.0); ATERIAL BLOOD GAS PEEP 12; CARBOXYHEMOGLOBIN 3.8 % (0.5-1.5); DRAW SITE LB; HHB -0.2 % (0.0-5.0); METHEMOGLOBIN 0.5 % (0.0-3.0)
[2016-11-25] MEDS: MethylPREDNISolone 40 mg Vial IV SCH ×3 (06:00→22:01)
[2016-11-25 06:56] LABS: BILIRUBIN,TOTAL 0.6 mg/dL (0.2-1.3); TOTAL PROTEIN 4.1 g/dL (6.3-8.3)
[2016-11-25 06:57] LABS: MAGNESIUM 1.7 mg/dL (1.6-2.3); PHOSPHOROUS 4.8 mg/dL (2.5-4.5)
[2016-11-25 07:12] LABS: BASO # 0.1 K/uL (0.0-0.2); BASO % 0.3 % (0.0-2.0); HEMATOCRIT 13.4 % (34.0-47.0); LYMPH # 1.3 K/uL (1.0-4.3); LYMPH % 6.2 % (20.0-40.0); MEAN CELL VOLUME 91.6 fL (81.0-99.0); MEAN CORPUSCULAR HEMOGLOBIN 29.5 pg (27.0-31.0); MEAN CORPUSCULAR HGB CONC 32.2 g/dL (33.0-37.0); MEAN PLATELET VOLUME 8.5 fL (7.2-11.7); MONO # 0.8 K/uL (0.0-0.8); MONO % 3.9 % (0.0-10.0); NRBC % 0.4 % (0.0-2.0); PLATELET COUNT 230 K/uL (130-400); RED CELL DISTRIBUTION WIDTH 16.3 % (11.5-14.5); WHITE BLOOD COUNT 20.3 K/uL (4.8-10.8)
[2016-11-25 08:06] LABS: EOSINOPHIL 1 % (0-4); NEUTROPHIL 85 % (50-75); TOTAL CELLS COUNTED 100
[2016-11-25] MEDS ORDERED: Acetaminophen 650mg/20.3ml solution UD PO ONE ×2 (08:30→14:45)
--- NOTE | 2016-11-25 08:55 | RAD ---
HISTORY: intubation COMPARISON: 11/24/2016 FINDINGS: LUNGS: Lines and tubes in stable position. Persistent diffuse increased interstitial lung markings bilaterally with more prominent consolidative changes in the right infrahilar region. PLEURA: As above. CARDIOVASCULAR: Normal. OSSEOUS STRUCTURES: No significant abnormalities. VISUALIZED UPPER ABDOMEN: Normal. OTHER FINDINGS: None. IMPRESSION: Lines and tubes in stable position. Persistent diffuse increased interstitial lung markings bilaterally with more prominent consolidative changes in the right infrahilar region.
[2016-11-25 08:58] LABS: INR 1.7
[2016-11-25] MEDS: Acyclovir 500 MG in Sodium Chloride 0.9% 100 ML IV SCH ×2 (09:34→22:16)
[2016-11-25] MEDS ORDERED: Pantoprazole 80 MG in Sodium Chloride 0.9% 100 ML IVPB SCH (10:00)
--- NOTE | 2016-11-25 10:22 | CP.PCM.CON ---
History of Present Illness - History of Present Illness History of Present Illness: CC: GI Bleed HPI: GI service consult requested for this 51 year old woman admitted 2 weeks ago with SBO. Complicated hospital course notable for sepsis, ARDS, Pneumothorax , respiratory failure. Patient has been on Plavix, Aspirin, and Lovenox. Hgb noted to drop to 6 yesterday, then to 4 today, and had large melenic BM this morning as per my discussion with patient's nurse. She is now on Protonix infusion, and has received 2 units PRBC's. She is in ICU. No pressors. Urine output is good. Review of Systems - Review of Systems Systems not reviewed;Unavailable: Intubated Past Patient History - Infectious Disease Hx of Infectious Diseases: None - Past Medical History & Family History Past Medical History?: Yes - Past Social History Smoking Status: Heavy Smoker > 10 Cigarettes Daily - CARDIAC Hx Cardiac Disorders: No Hx Heart Attack: Yes (x3 as per patient) - PULMONARY Hx Chronic Obstructive Pulmonary Disease (COPD): Yes Hx Emphysema: Yes - NEUROLOGICAL HX Cerebrovascular Accident: Yes (x2) - HEENT Hx HEENT Problems: No - RENAL Hx Chronic Kidney Disease: No - ENDOCRINE/METABOLIC Hx Endocrine Disorders: Yes Hx Systemic Lupus Erythematosus: Yes - HEMATOLOGICAL/ONCOLOGICAL Hx Blood Disorders: No - INTEGUMENTARY Hx Dermatological Problems: No - MUSCULOSKELETAL/RHEUMATOLOGICAL Hx Falls: No - GASTROINTESTINAL Hx Gastrointestinal Disorders: Yes Hx Bowel Surgery: Yes (August 2016) Hx Gastroesophageal Reflux: Yes Other/Comment: GERD - GENITOURINARY/GYNECOLOGICAL Hx Genitourinary Disorders: Yes Hx Incontinence: Yes - PSYCHIATRIC Hx Anxiety: Yes Hx Bipolar Disorder: Yes Hx Depression: Yes Hx Substance Use: No - SURGICAL HISTORY Hx Cholecystectomy: Yes - ANESTHESIA Hx Anesthesia: Yes Hx Anesthesia Reactions: No Hx Malignant Hyperthermia: No Meds Allergies/Adverse Reactions: Allergies Allergy/AdvReac Type Severity Reaction Status Date / Time No Known Allergies Allergy Verified 11/06/16 10:12 - Medications Medications: Current Medications Albuterol/Ipratropium (Duoneb 3 Mg/0.5 Mg (3 Ml) Ud) 3 ml INH RQ6 [facility] Last Admin: 11/25/16 08:00 Dose: Not Given Aspirin (Aspirin Chewable) 81 mg PO DAILY [facility] Last Admin: 11/23/16 09:23 Dose: Not Given Clopidogrel Bisulfate (Plavix) 75 mg PO DAILY [facility] Last Admin: 11/23/16 10:33 Dose: Not Given Enoxaparin Sodium (Lovenox) 40 mg SC DAILY [facility] Last Admin: 11/24/16 09:49 Dose: 40 mg Fentanyl Citrate 2,500 mcg/ (Sodium Chloride) 250 mls @ 70 mls/hr IV .Q3H35M [facility]; 10 MCG/KG/HR PRN Reason: Protocol Last Admin: 11/25/16 09:46 Dose: 35 mls/hr Midazolam HCl 100 mg/ Sodium (Chloride) 100 mls @ 1.4 mls/hr IV .Q24H PRN; Protocol; 0.02 MG/KG/HR PRN Reason: FOLLOW PROTOCOL Last Admin: 11/24/16 15:38 Dose: 3 mls/hr Levetiracetam 500 mg/ Sodium (Chloride) 105 mls @ 420 mls/hr IVPB Q12H [facility] Last Admin: 11/24/16 22:10 Dose: 420 mls/hr Acyclovir 500 mg/ Sodium (Chloride) 100 mls @ 100 mls/hr IV Q12H [facility] Last Admin: 11/25/16 09:34 Dose: 100 mls/hr Micafungin Sodium 100 mg/ (Sodium Chloride) 100 mls @ 100 mls/hr IV Q24H [facility] Last Admin: 11/24/16 23:16 Dose: 100 mls/hr Pantoprazole Sodium 80 mg/ (Sodium Chloride) 100 mls @ 10 mls/hr IVPB .Q10H [facility] PRN Reason: 8 MG/HR Last Admin: 11/25/16 09:45 Dose: 10 mls/hr Desmopressin Acetate 18 mcg/ (Sodium Chloride) 54.5 mls @ 100 mls/hr IV ONCE ONE Stop: 11/25/16 10:02 Lactulose (Enulose) 20 gm PO HS PRN PRN Reason: Constipation Last Admin: 11/23/16 05:55 Dose: 20 gm Methylprednisolone (Solu-Medrol) 60 mg IV Q8 [facility] Last Admin: 11/25/16 06:00 Dose: 60 mg Pantoprazole Sodium (Protonix Inj) 40 mg IVP Q12H [facility] Last Admin: 11/25/16 06:01 Dose: 40 mg Quetiapine Fumarate (Seroquel) 25 mg PO DAILY [facility] Last Admin: 11/24/16 10:28 Dose: 25 mg Sertraline HCl (Zoloft) 25 mg PO DAILY [facility] Last Admin: 11/24/16 09:57 Dose: 25 mg Sucralfate (Carafate Oral Susp) 1 gm PO Q6H [facility] Last Admin: 11/25/16 06:01 Dose: 1 gm Physical Exam - Constitutional Appears: In Acute Distress - Head Exam Head Exam: ATRAUMATIC - Eye Exam Eye Exam: absent: Scleral icterus (Pale conjunctivae) - ENT Exam Additional comments: ETT and NGT present. Draining green material. - Respiratory Exam Respiratory Exam: Rhonchi - Cardiovascular Exam Cardiovascular Exam: Tachycardia - GI/Abdominal Exam GI & Abdominal Exam: Hypoactive Bowel Sounds, Soft. absent: Distended, Tenderness - Rectal Exam Rectal Exam: Deferred - Extremities Exam Extremities exam: Positive for: normal inspection - Neurological Exam Additional comments: sedated - Psychiatric Exam Additional comments: sedated - Skin Skin Exam: Pallor, Warm Results - Vital Signs Recent Vital Signs: Last Vital Signs Temp 98.4 F 11/25/16 04:00 Pulse 145 H 11/25/16 07:00 Resp 12 11/25/16 07:00 BP 92/56 L 11/25/16 07:00 Pulse Ox 100 11/25/16 07:00 - Labs Result Diagrams: 11/25/16 07:00 11/25/16 06:30 Labs: Laboratory Results - last 24 hr 11/23/16 11/24/16 11/25/16 12:30 08:30 01:11 WBC RBC Hgb Hct MCV MCH MCHC RDW Plt Count MPV Neut % (Auto) Lymph % (Auto) Pine % (Auto) Eos % (Auto) Baso % (Auto) Neut # Lymph # Pine # Eos # Baso # Neutrophils % (Manual) Band Neutrophils % Lymphocytes % (Manual) Monocytes % (Manual) Eosinophils % (Manual) Toxic Granulation Platelet Estimate Polychromasia Hypochromasia (manual) Anisocytosis (manual) Retic Count PT INR APTT Puncture Site pCO2 pO2 HCO3 ABG pH ABG Total CO2 ABG O2 Saturation ABG Base Excess ABG Hemoglobin ABG Carboxyhemoglobin POC ABG HHb (Measured) ABG Methemoglobin Reese Test A-a O2 Difference Respiratory Index Hgb O2 Saturation Mechanical Rate FiO2 Tidal Volume PEEP Crit Value Called To Crit Value Called By Crit Value Read Back Blood Gas Notified Time Sodium Potassium Chloride Carbon Dioxide Anion Gap BUN Creatinine Est GFR ( Amer) Est GFR (Non-Af Amer) Random Glucose Calcium Phosphorus Magnesium Total Bilirubin AST ALT Alkaline Phosphatase Total Protein Albumin Globulin Albumin/Globulin Ratio Urine Color Yellow Urine Clarity Clear Urine pH 5.0 Ur Specific Metz 1.016 Urine Protein Negative Urine Glucose (UA) Normal Urine Ketones Negative Urine Blood Negative Urine Nitrate Negative Urine Bilirubin Negative Urine Urobilinogen Normal Ur Leukocyte Esterase Neg Urine WBC (Auto) 6 H Urine RBC (Auto) 4 H Urine Bacteria Rare Stool Occult Blood Negative Blood Type AB POSITIVE Antibody Screen Negative 11/25/16 11/25/16 11/25/16 05:17 06:30 07:00 WBC 20.3 H RBC 1.47 L Hgb 4.3 L* D Hct 13.4 L MCV 91.6 D MCH 29.5 MCHC 32.2 L RDW 16.3 H Plt Count 230 MPV 8.5 Neut % (Auto) 89.6 H Lymph % (Auto) 6.2 L Pine % (Auto) 3.9 Eos % (Auto) 0.0 Baso % (Auto) 0.3 Neut # 18.2 H Lymph # 1.3 Pine # 0.8 Eos # 0.0 Baso # 0.1 Neutrophils % (Manual) 85 H Band Neutrophils % 2 Lymphocytes % (Manual) 10 L Monocytes % (Manual) 2 Eosinophils % (Manual) 1 Toxic Granulation Present Platelet Estimate Normal Polychromasia Slight Hypochromasia (manual) Slight Anisocytosis (manual) Slight Retic Count PT INR APTT Puncture Site Lb pCO2 59 H pO2 124 H HCO3 32.1 H ABG pH 7.38 ABG Total CO2 36.7 H ABG O2 Saturation 100.2 H ABG Base Excess 9.2 H ABG Hemoglobin 4.4 L ABG Carboxyhemoglobin 3.8 H POC ABG HHb (Measured) -0.2 L ABG Methemoglobin 0.5 Reese Test Pos A-a O2 Difference 373.0 Respiratory Index 3.0 Hgb O2 Saturation 95.9 Mechanical Rate 20 FiO2 80.0 Tidal Volume 450 PEEP 12 Crit Value Called To Lizy antoine rn Crit Value Called By Rachael alfaro sink maker Crit Value Read Back Y Blood Gas Notified Time 546 Sodium 149 H Potassium 5.0 Chloride 105 Carbon Dioxide 35 H Anion Gap 14 BUN 80 H Creatinine 1.2 Est GFR ( Amer) 58 Est GFR (Non-Af Amer) 48 Random Glucose 140 H Calcium 7.0 L Phosphorus 4.8 H Magnesium 1.7 Total Bilirubin 0.6 AST 19 ALT 19 Alkaline Phosphatase 59 Total Protein 4.1 L Albumin 2.0 L D Globulin 2.1 L Albumin/Globulin Ratio 1.0 Urine Color Urine Clarity Urine pH Ur Specific Metz Urine Protein Urine Glucose (UA) Urine Ketones Urine Blood Urine Nitrate Urine Bilirubin Urine Urobilinogen Ur Leukocyte Esterase Urine WBC (Auto) Urine RBC (Auto) Urine Bacteria Stool Occult Blood Blood Type Antibody Screen 11/25/16 11/25/16 07:45 08:43 WBC RBC Hgb Hct MCV MCH MCHC RDW Plt Count MPV Neut % (Auto) Lymph % (Auto) Pine % (Auto) Eos % (Auto) Baso % (Auto) Neut # Lymph # Pine # Eos # Baso # Neutrophils % (Manual) Band Neutrophils % Lymphocytes % (Manual) Monocytes % (Manual) Eosinophils % (Manual) Toxic Granulation Platelet Estimate Polychromasia Hypochromasia (manual) Anisocytosis (manual) Retic Count 5.3 H D PT 19.4 H INR 1.7 APTT 28 Puncture Site pCO2 pO2 HCO3 ABG pH ABG Total CO2 ABG O2 Saturation ABG Base Excess ABG Hemoglobin ABG Carboxyhemoglobin POC ABG HHb (Measured) ABG Methemoglobin Reese Test A-a O2 Difference Respiratory Index Hgb O2 Saturation Mechanical Rate FiO2 Tidal Volume PEEP Crit Value Called To Crit Value Called By Crit Value Read Back Blood Gas Notified Time Sodium Potassium Chloride Carbon Dioxide Anion Gap BUN Creatinine Est GFR ( Amer) Est GFR (Non-Af Amer) Random Glucose Calcium Phosphorus Magnesium Total Bilirubin AST ALT Alkaline Phosphatase Total Protein Albumin Globulin Albumin/Globulin Ratio Urine Color Urine Clarity Urine pH Ur Specific Metz Urine Protein Urine Glucose (UA) Urine Ketones Urine Blood Urine Nitrate Urine Bilirubin Urine Urobilinogen Ur Leukocyte Esterase Urine WBC (Auto) Urine RBC (Auto) Urine Bacteria Stool Occult Blood Blood Type Antibody Screen Assessment & Plan (1) Acute respiratory failure with hypoxia Assessment and Plan: On Vent management per ICU team and Critical Care Status: Acute (2) Small bowel obstruction Assessment and Plan: Resolved. Non operative management. Monitor Status: Acute (3) GI bleeding Assessment and Plan: Hgb bled down to 4. On numerous antiplatelet agents. Suspect upper GI source. Had melenic BM. Hemodynamics are tenuous with borderline BP, and significant tachycardia. Rec: Agree with stopping ASA, Plavix, Lovenox and starting Protonix drip. Agree with PRBC transfusions. Monitor hemodynamics. EGD to be done once stabilized. Benefits and risks including , resp failure , bleeding, perforation, infection discussed with next of kin, who agrees and consents to the emergency procedure. Status: Acute
[2016-11-25] MEDS: levETIRAcetam 500 MG in Sodium Chloride 0.9% 100 ML IVPB SCH ×2 (11:15→23:00)
--- NOTE | 2016-11-25 12:03 | CP.PCM.PN ---
Subjective - Date & Time of Evaluation Date of Evaluation: 11/25/16 Time of Evaluation: 08:03 - Subjective Subjective: Cardiothoracic Surgery Note for Dr. Chan This 51F was seen and examined this AM at bedside. Her Hgb this am was 4.2 no signs of bleeding. She is staurating 100% on 70FIO2 12 peep her chets tube output is minimal. Objective - Vital Signs/Intake and Output Vital Signs (last 24 hours): Temp Pulse Resp BP Pulse Ox 100.5 F H 132 H 20 91/53 L 92 L 11/25/16 11:00 11/25/16 11:00 11/25/16 11:00 11/25/16 11:00 11/25/16 11:00 Intake and Output: 11/25/16 11/25/16 06:59 18:59 Intake Total 1264.8 1102.5 Output Total 810 295 Balance 454.8 807.5 - Medications Medications: Current Medications Albuterol/Ipratropium (Duoneb 3 Mg/0.5 Mg (3 Ml) Ud) 3 ml INH RQ6 [facility] Last Admin: 11/25/16 08:00 Dose: Not Given Aspirin (Aspirin Chewable) 81 mg PO DAILY [facility] Last Admin: 11/23/16 09:23 Dose: Not Given Clopidogrel Bisulfate (Plavix) 75 mg PO DAILY [facility] Last Admin: 11/23/16 10:33 Dose: Not Given Enoxaparin Sodium (Lovenox) 40 mg SC DAILY [facility] Last Admin: 11/24/16 09:49 Dose: 40 mg Fentanyl Citrate 2,500 mcg/ (Sodium Chloride) 250 mls @ 70 mls/hr IV .Q3H35M [facility]; 10 MCG/KG/HR PRN Reason: Protocol Last Admin: 11/25/16 09:46 Dose: 35 mls/hr Midazolam HCl 100 mg/ Sodium (Chloride) 100 mls @ 1.4 mls/hr IV .Q24H PRN; Protocol; 0.02 MG/KG/HR PRN Reason: FOLLOW PROTOCOL Last Admin: 11/24/16 15:38 Dose: 3 mls/hr Levetiracetam 500 mg/ Sodium (Chloride) 105 mls @ 420 mls/hr IVPB Q12H [facility] Last Admin: 11/25/16 11:15 Dose: 420 mls/hr Acyclovir 500 mg/ Sodium (Chloride) 100 mls @ 100 mls/hr IV Q12H [facility] Last Admin: 11/25/16 09:34 Dose: 100 mls/hr Micafungin Sodium 100 mg/ (Sodium Chloride) 100 mls @ 100 mls/hr IV Q24H [facility] Last Admin: 11/24/16 23:16 Dose: 100 mls/hr Pantoprazole Sodium 80 mg/ (Sodium Chloride) 100 mls @ 10 mls/hr IVPB .Q10H [facility] PRN Reason: 8 MG/HR Last Admin: 11/25/16 09:45 Dose: 10 mls/hr Lactulose (Enulose) 20 gm PO HS PRN PRN Reason: Constipation Last Admin: 11/23/16 05:55 Dose: 20 gm Methylprednisolone (Solu-Medrol) 60 mg IV Q8 [facility] Last Admin: 11/25/16 06:00 Dose: 60 mg Pantoprazole Sodium (Protonix Inj) 40 mg IVP Q12H [facility] Last Admin: 11/25/16 06:01 Dose: 40 mg Quetiapine Fumarate (Seroquel) 25 mg PO DAILY [facility] Last Admin: 11/24/16 10:28 Dose: 25 mg Sertraline HCl (Zoloft) 25 mg PO DAILY [facility] Last Admin: 11/24/16 09:57 Dose: 25 mg Sucralfate (Carafate Oral Susp) 1 gm PO Q6H [facility] Last Admin: 11/25/16 06:01 Dose: 1 gm - Labs Labs: 11/25/16 07:00 11/25/16 06:30 PT 19.4 SECONDS (9.7-12.2) H 11/25/16 08:43 INR 1.7 11/25/16 08:43 APTT 28 SECONDS (21-34) 11/25/16 08:43 - Constitutional Appears: No Acute Distress - Head Exam Head Exam: ATRAUMATIC, NORMOCEPHALIC - Eye Exam Eye Exam: EOMI, Normal appearance - Neck Exam Neck Exam: Full ROM - Respiratory Exam Additional comments: Intubated and ventilated - Cardiovascular Exam Cardiovascular Exam: +S1, +S2 - GI/Abdominal Exam GI & Abdominal Exam: Soft. absent: Guarding, Rigid, Tenderness - Extremities Exam Extremities Exam: Normal Inspection. absent: Pedal Edema, Tenderness - Neurological Exam Neurological Exam: Alert, Awake - Skin Skin Exam: Dry, Intact, Normal Color Assessment and Plan - Assessment and Plan (Free Text) Assessment: Assessment: 51F with pulmonary fibrosis s/p R VATS with wedge resection & CT placement POD#8 Plan: - EDG no bleed - HGB s/p 3 units now 10.4 - Cont CT on suction; monitor output - F/U Daily CXR - f/u pathology D/W Dr. Dustin Gonzales PGY-1
[2016-11-25] MEDS ORDERED: Midazolam 2 MG/2 ML VIAL ONE (12:14)
[2016-11-25] MEDS ORDERED: Etomidate 20 mg/10ml Inj IV ONE (12:14)
[2016-11-25] MEDS ORDERED: Phenylephrine 10 mg/ml Inj ONE (12:16)
--- NOTE | 2016-11-25 12:47 | CP.CCUPN ---
<Mariana Robison - Last Filed: 11/25/16 12:45> CCU Subjective - Physician Review Events Since Last Encounter (Free Text): 11/25/16 12:45 tachycardiac, febrile overnight, Tmax 101.4 Subjective (Free Text): 11/10/16 12:04 Pt S & E this AM. Reports ab pain and SOB improved- on VTM. Had soft unformed BMs x 2 yesterday, 1 liquid stool today with large volume flatus. Denies N/V/F/C, chest pain. 11/11/16 12:38 Pt S & E this AM. Pt reports having 3 liquid stools yesterday, continues to require VTM 2/2 SOB, insomnia. Abdominal pain much improved, abdominal distention much improved. Denies N/V/F/C, chest pain. 11/12/16 14:26 Pt S & E this AM. Pt reports continued SOB, likes being on Bipap 2/2 less work to breathe. Ab pain improved, continues with liquid stools, now has non productive cough. 11/13/16 16:55 Pt S & E this AM. Pt continues w/SOB requiring Bipap overnight, using more Bipap vs. VTM mask, states she had insomnia overnight 2/2 SOB, needing to focus on breathing. Abdominal pain resolved. Had slight nausea yesterday with protein supplement. Had 1 liquid BM yesterday. Denies emesis, fevers, chills, chest pain. 11/16/16 13:44 P S & E this AM. Pt on BiPAP -tolerating it well. Pt admits to epigastric abdominal pain, hunger -asking for food. For OR tomorrow for bronchoscopy and wedge biopsy with Dr. Chan. 11/17/16 12:40 Pt S & E this AM. Pt stable on BiPAP confortable overnight. Continued epigastric pain but tolerating diet intermittently. No BM despite SS enema & colace. For bronchoscopy and wedge biopsy today with Dr. Chan. 11/18/16 18:07 Pt S & E this AM. Pt intubated/sedated, but alert, awake. Gesturing that her abdominal pain has resolved. 11/19/16 12:34 Pt S & E this AM. Pt intubated/sedated, but alert & awake. C/O chest wall pain, asking for sleep medication. 11/20/16 14:57 Pt S & E this AM. Pt intubated/sedated, but alert, awake, no abdominal pain, stable. 11/23/16 11:41 Pt S & E this AM. Pt intubated/sedated, but alert, awake, no complaints, denies abdominal pain. Asking for ET tube to be removed. 11/24/16 12:02 Pt S & E this AM. Pt still intubated/sedated, but alert/awake, gesturing that her mouth is dry, asking if she is going to . Will re-start psych meds for comfort. 11/25/16 12:45 Pt S & E this AM. Pt not arousable to verbal stimuli- pt paler vs. yesterday, w/visualized melenic liquid stool on exam. Critical Care Time Spent (in minutes): 60 CCU Objective - Vital Signs / Intake & Output Vital Signs (Last 4 hours): Vital Signs Temp Pulse Resp BP Pulse Ox 11/25/16 12:20 130 H 22 96/56 L 94 L 11/25/16 11:00 100.5 F H 132 H 20 91/53 L 92 L 11/25/16 10:00 100.9 F H 136 H 20 92/61 L 97 11/25/16 09:00 101.4 F H 144 H 20 96/51 L 95 Intake and Output (Last 8hrs): Intake & Output 11/24/16 11/25/16 11/25/16 22:59 06:59 14:59 Intake Total 532.4 992.0 1102.5 Output Total 470 620 295 Balance 62.4 372.0 807.5 Weight 61.689 kg Intake: Intake, IV Amount 472.4 992.0 402.5 Right Forearm 20 Right Medial Port 100 700 Internal Jugular Right Distal Port 24 24 15 Internal Jugular Right Proximal Port 348.4 268.0 267.0 Internal Jugular RT IJ TLC Distal port 2 100.5 Tube Feeding 0 Blood Product 700 Other 60 Output: Chest Tube Drainage 0 Right Mid-Axillary Chest 0 Gastric Amount 100 250 Stomach 100 250 Urine 370 370 295 Urethral (Mishra) 370 370 295 Other: # Bowel Movements 0 - Physical Exam Head: Positive for: Atraumatic, Normocephalic Pupils: Positive for: PERRL Extroacular Muscles: Positive for: EOMI Conjunctiva: Positive for: Normal Ears: Positive for: Normal Mouth: Positive for: Dry, Other (ET & OG tubes in place) Pharnyx: Positive for: Normal Nose (External): Positive for: Atraumatic Neck: Positive for: Normal Range of Motion, Trachea Midline, Other (Right IJ (- ) erythema/drainage) Respiratory/Chest: Positive for: Good Air Exchange, Accessory Muscle Use, Decreased Breath Sounds. Negative for: Clear to Auscultation (coarse BS b/l), Respiratory Distress, Wheezes, Rales, Retracting, Rhonchi Cardiovascular: Positive for: Normal S1, S2, Peripheal Pulses Present, Tachycardic. Negative for: Murmurs, Rub, Gallop Abdomen: Negative for: Tenderness, Distention, Normal Bowel Sounds (hypoactive) , Peritoneal Signs, Rebound, Guarding Upper Extremity: Positive for: Normal Inspection. Negative for: Cyanosis, Edema Lower Extremity: Positive for: Normal Inspection. Negative for: Edema Neurological: Positive for: Other (intubated/sedated). Negative for: GCS=15, Speech Normal Skin: Positive for: Warm, Dry, Normal Color, Pale. Negative for: Rashes Psychiatric: Negative for: Alert, Oriented x 3, Normal Insight, Normal Concentration - Medications Active Medications: Active Medications Generic Name Dose Route Start Last Admin Trade Name Freq PRN Reason Stop Dose Admin Albuterol/Ipratropium 3 ml 11/19/16 02:00 11/25/16 08:00 Duoneb 3 Mg/0.5 Mg (3 Ml) Ud INH Not Given RQ6 [facility] Aspirin 81 mg 11/07/16 10:00 11/23/16 09:23 Aspirin Chewable PO Not Given DAILY [facility] Clopidogrel Bisulfate 75 mg 11/07/16 10:00 11/23/16 10:33 Plavix PO Not Given DAILY [facility] Enoxaparin Sodium 40 mg 11/07/16 10:00 11/24/16 09:49 Lovenox SC 40 mg DAILY [facility] Administration Fentanyl Citrate 2,500 mcg/ 250 mls @ 70 mls/hr 11/19/16 10:35 11/25/16 09:46 Sodium Chloride IV 35 mls/hr .Q3H35M [facility] Administration Protocol 10 MCG/KG/HR Midazolam HCl 100 mg/ Sodium 100 mls @ 1.4 mls/hr 11/20/16 15:00 11/24/16 15:38 Chloride IV 3 mls/hr .Q24H PRN Administration FOLLOW PROTOCOL Protocol 0.02 MG/KG/HR Levetiracetam 500 mg/ Sodium 105 mls @ 420 mls/hr 11/21/16 11:00 11/25/16 11:15 Chloride IVPB 420 mls/hr Q12H [facility] Administration Acyclovir 500 mg/ Sodium 100 mls @ 100 mls/hr 11/24/16 10:00 11/25/16 09:34 Chloride IV 100 mls/hr Q12H [facility] Administration Micafungin Sodium 100 mg/ 100 mls @ 100 mls/hr 11/24/16 22:30 11/24/16 23:16 Sodium Chloride IV 100 mls/hr Q24H [facility] Administration Methylprednisolone 60 mg 11/24/16 14:00 11/25/16 06:00 Solu-Medrol IV 60 mg Q8 [facility] Administration Pantoprazole Sodium 40 mg 11/24/16 07:00 11/25/16 06:01 Protonix Inj IVP 40 mg Q12H [facility] Administration Quetiapine Fumarate 25 mg 11/24/16 10:00 11/24/16 10:28 Seroquel PO 25 mg DAILY [facility] Administration Sertraline HCl 25 mg 11/24/16 10:00 11/24/16 09:57 Zoloft PO 25 mg DAILY [facility] Administration Sucralfate 1 gm 11/24/16 07:00 11/25/16 06:01 Carafate Oral Susp PO 1 gm Q6H [facility] Administration - Patient Studies Lab Studies: Lab Studies 11/25/16 11/25/16 11/25/16 Range/Units 08:43 07:45 07:00 WBC 20.3 H (4.8-10.8) K/uL RBC 1.47 L (3.80-5.20) Mil/uL Hgb 4.3 L* D (11.0-16.0) g/dL Hct 13.4 L (34.0-47.0) % MCV 91.6 D (81.0-99.0) fL MCH 29.5 (27.0-31.0) pg MCHC 32.2 L (33.0-37.0) g/dL RDW 16.3 H (11.5-14.5) % Plt Count 230 (130-400) K/uL MPV 8.5 (7.2-11.7) fL Neut % (Auto) 89.6 H (50.0-75.0) % Lymph % (Auto) 6.2 L (20.0-40.0) % Haines % (Auto) 3.9 (0.0-10.0) % Eos % (Auto) 0.0 (0.0-4.0) % Baso % (Auto) 0.3 (0.0-2.0) % Neut # 18.2 H (1.8-7.0) K/uL Lymph # 1.3 (1.0-4.3) K/uL Haines # 0.8 (0.0-0.8) K/uL Eos # 0.0 (0.0-0.7) K/uL Baso # 0.1 (0.0-0.2) K/uL Neutrophils % (Manual) 85 H (50-75) % Band Neutrophils % 2 (0-2) % Lymphocytes % (Manual) 10 L (20-40) % Monocytes % (Manual) 2 (0-10) % Eosinophils % (Manual) 1 (0-4) % Toxic Granulation Present Platelet Estimate Normal (NORMAL) Polychromasia Slight Hypochromasia (manual) Slight Anisocytosis (manual) Slight Retic Count 5.3 H D (0.5-1.5) % PT 19.4 H (9.7-12.2) SECONDS INR 1.7 APTT 28 (21-34) SECONDS Puncture Site pCO2 (35-45) mm/Hg pO2 (80-100) mm/Hg HCO3 (21-28) mmol/L ABG pH (7.35-7.45) ABG Total CO2 (22-28) mmol/L ABG O2 Saturation (95-98) % ABG Base Excess (-2.0-3.0) mmol/L ABG Hemoglobin (11.7-17.4) g/dL ABG Carboxyhemoglobin (0.5-1.5) % POC ABG HHb (Measured) (0.0-5.0) % ABG Methemoglobin (0.0-3.0) % Reese Test A-a O2 Difference mm/Hg Respiratory Index Hgb O2 Saturation (95.0-98.0) % Mechanical Rate FiO2 % Tidal Volume PEEP Crit Value Called To Crit Value Called By Crit Value Read Back Blood Gas Notified Time Sodium (132-148) mmol/L Potassium (3.6-5.2) mmol/L Chloride (98-107) mmol/L Carbon Dioxide (22-30) mmol/L Anion Gap (10-20) BUN (7-17) mg/dL Creatinine (0.7-1.2) MG/DL Est GFR ( Amer) Est GFR (Non-Af Amer) Random Glucose (65-105) mg/dL Calcium (8.6-10.4) mg/dl Phosphorus (2.5-4.5) mg/dL Magnesium (1.6-2.3) mg/dL Total Bilirubin (0.2-1.3) mg/dL AST (14-36) U/L ALT (9-52) U/L Alkaline Phosphatase (38-126) U/L Total Protein (6.3-8.3) g/dL Albumin (3.5-5.0) g/dL Globulin (2.2-3.9) gm/dL Albumin/Globulin Ratio (1.0-2.1) Urine Color (YELLOW) Urine Clarity (Clear) Urine pH (5.0-8.0) Ur Specific [place] (1.003-1.030) Urine Protein (NEGATIVE) mg/dL Urine Glucose (UA) (Normal) mg/dL Urine Ketones (NEGATIVE) mg/dL Urine Blood (NEGATIVE) Urine Nitrate (NEGATIVE) Urine Bilirubin (NEGATIVE) Urine Urobilinogen (0.2-1.0) mg/dL Ur Leukocyte Esterase (Negative) Sung/uL Urine WBC (Auto) (0-5) /hpf Urine RBC (Auto) (0-3) /hpf Urine Bacteria (<OCC) Stool Occult Blood (NEGATIVE) Blood Type Antibody Screen 11/25/16 11/25/16 11/25/16 Range/Units 06:30 05:17 01:11 WBC (4.8-10.8) K/uL RBC (3.80-5.20) Mil/uL Hgb (11.0-16.0) g/dL Hct (34.0-47.0) % MCV (81.0-99.0) fL MCH (27.0-31.0) pg MCHC (33.0-37.0) g/dL RDW (11.5-14.5) % Plt Count (130-400) K/uL MPV (7.2-11.7) fL Neut % (Auto) (50.0-75.0) % Lymph % (Auto) (20.0-40.0) % Haines % (Auto) (0.0-10.0) % Eos % (Auto) (0.0-4.0) % Baso % (Auto) (0.0-2.0) % Neut # (1.8-7.0) K/uL Lymph # (1.0-4.3) K/uL Haines # (0.0-0.8) K/uL Eos # (0.0-0.7) K/uL Baso # (0.0-0.2) K/uL Neutrophils % (Manual) (50-75) % Band Neutrophils % (0-2) % Lymphocytes % (Manual) (20-40) % Monocytes % (Manual) (0-10) % Eosinophils % (Manual) (0-4) % Toxic Granulation Platelet Estimate (NORMAL) Polychromasia Hypochromasia (manual) Anisocytosis (manual) Retic Count (0.5-1.5) % PT (9.7-12.2) SECONDS INR APTT (21-34) SECONDS Puncture Site Lb pCO2 59 H (35-45) mm/Hg pO2 124 H (80-100) mm/Hg HCO3 32.1 H (21-28) mmol/L ABG pH 7.38 (7.35-7.45) ABG Total CO2 36.7 H (22-28) mmol/L ABG O2 Saturation 100.2 H (95-98) % ABG Base Excess 9.2 H (-2.0-3.0) mmol/L ABG Hemoglobin 4.4 L (11.7-17.4) g/dL ABG Carboxyhemoglobin 3.8 H (0.5-1.5) % POC ABG HHb (Measured) -0.2 L (0.0-5.0) % ABG Methemoglobin 0.5 (0.0-3.0) % Reese Test Pos A-a O2 Difference 373.0 mm/Hg Respiratory Index 3.0 Hgb O2 Saturation 95.9 (95.0-98.0) % Mechanical Rate 20 FiO2 80.0 % Tidal Volume 450 PEEP 12 Crit Value Called To Lizy antoine rn Crit Value Called By Rachael alfaro vat cleaner Crit Value Read Back Y Blood Gas Notified Time 546 Sodium 149 H (132-148) mmol/L Potassium 5.0 (3.6-5.2) mmol/L Chloride 105 (98-107) mmol/L Carbon Dioxide 35 H (22-30) mmol/L Anion Gap 14 (10-20) BUN 80 H (7-17) mg/dL Creatinine 1.2 (0.7-1.2) MG/DL Est GFR ( Amer) 58 Est GFR (Non-Af Amer) 48 Random Glucose 140 H (65-105) mg/dL Calcium 7.0 L (8.6-10.4) mg/dl Phosphorus 4.8 H (2.5-4.5) mg/dL Magnesium 1.7 (1.6-2.3) mg/dL Total Bilirubin 0.6 (0.2-1.3) mg/dL AST 19 (14-36) U/L ALT 19 (9-52) U/L Alkaline Phosphatase 59 (38-126) U/L Total Protein 4.1 L (6.3-8.3) g/dL Albumin 2.0 L D (3.5-5.0) g/dL Globulin 2.1 L (2.2-3.9) gm/dL Albumin/Globulin Ratio 1.0 (1.0-2.1) Urine Color Yellow (YELLOW) Urine Clarity Clear (Clear) Urine pH 5.0 (5.0-8.0) Ur Specific [place] 1.016 (1.003-1.030) Urine Protein Negative (NEGATIVE) mg/dL Urine Glucose (UA) Normal (Normal) mg/dL Urine Ketones Negative (NEGATIVE) mg/dL Urine Blood Negative (NEGATIVE) Urine Nitrate Negative (NEGATIVE) Urine Bilirubin Negative (NEGATIVE) Urine Urobilinogen Normal (0.2-1.0) mg/dL Ur Leukocyte Esterase Neg (Negative) Sung/uL Urine WBC (Auto) 6 H (0-5) /hpf Urine RBC (Auto) 4 H (0-3) /hpf Urine Bacteria Rare (<OCC) Stool Occult Blood (NEGATIVE) Blood Type Antibody Screen 11/24/16 11/23/16 Range/Units 08:30 12:30 WBC (4.8-10.8) K/uL RBC (3.80-5.20) Mil/uL Hgb (11.0-16.0) g/dL Hct (34.0-47.0) % MCV (81.0-99.0) fL MCH (27.0-31.0) pg MCHC (33.0-37.0) g/dL RDW (11.5-14.5) % Plt Count (130-400) K/uL MPV (7.2-11.7) fL Neut % (Auto) (50.0-75.0) % Lymph % (Auto) (20.0-40.0) % Haines % (Auto) (0.0-10.0) % Eos % (Auto) (0.0-4.0) % Baso % (Auto) (0.0-2.0) % Neut # (1.8-7.0) K/uL Lymph # (1.0-4.3) K/uL Haines # (0.0-0.8) K/uL Eos # (0.0-0.7) K/uL Baso # (0.0-0.2) K/uL Neutrophils % (Manual) (50-75) % Band Neutrophils % (0-2) % Lymphocytes % (Manual) (20-40) % Monocytes % (Manual) (0-10) % Eosinophils % (Manual) (0-4) % Toxic Granulation Platelet Estimate (NORMAL) Polychromasia Hypochromasia (manual) Anisocytosis (manual) Retic Count (0.5-1.5) % PT (9.7-12.2) SECONDS INR APTT (21-34) SECONDS Puncture Site pCO2 (35-45) mm/Hg pO2 (80-100) mm/Hg HCO3 (21-28) mmol/L ABG pH (7.35-7.45) ABG Total CO2 (22-28) mmol/L ABG O2 Saturation (95-98) % ABG Base Excess (-2.0-3.0) mmol/L ABG Hemoglobin (11.7-17.4) g/dL ABG Carboxyhemoglobin (0.5-1.5) % POC ABG HHb (Measured) (0.0-5.0) % ABG Methemoglobin (0.0-3.0) % Reese Test A-a O2 Difference mm/Hg Respiratory Index Hgb O2 Saturation (95.0-98.0) % Mechanical Rate FiO2 % Tidal Volume PEEP Crit Value Called To Crit Value Called By Crit Value Read Back Blood Gas Notified Time Sodium (132-148) mmol/L Potassium (3.6-5.2) mmol/L Chloride (98-107) mmol/L Carbon Dioxide (22-30) mmol/L Anion Gap (10-20) BUN (7-17) mg/dL Creatinine (0.7-1.2) MG/DL Est GFR ( Amer) Est GFR (Non-Af Amer) Random Glucose (65-105) mg/dL Calcium (8.6-10.4) mg/dl Phosphorus (2.5-4.5) mg/dL Magnesium (1.6-2.3) mg/dL Total Bilirubin (0.2-1.3) mg/dL AST (14-36) U/L ALT (9-52) U/L Alkaline Phosphatase (38-126) U/L Total Protein (6.3-8.3) g/dL Albumin (3.5-5.0) g/dL Globulin (2.2-3.9) gm/dL Albumin/Globulin Ratio (1.0-2.1) Urine Color (YELLOW) Urine Clarity (Clear) Urine pH (5.0-8.0) Ur Specific [place] (1.003-1.030) Urine Protein (NEGATIVE) mg/dL Urine Glucose (UA) (Normal) mg/dL Urine Ketones (NEGATIVE) mg/dL Urine Blood (NEGATIVE) Urine Nitrate (NEGATIVE) Urine Bilirubin (NEGATIVE) Urine Urobilinogen (0.2-1.0) mg/dL Ur Leukocyte Esterase (Negative) Sung/uL Urine WBC (Auto) (0-5) /hpf Urine RBC (Auto) (0-3) /hpf Urine Bacteria (<OCC) Stool Occult Blood Negative (NEGATIVE) Blood Type AB POSITIVE Antibody Screen Negative Laboratory Results - last 24 hr 11/23/16 11/24/16 11/25/16 12:30 08:30 01:11 WBC RBC Hgb Hct MCV MCH MCHC RDW Plt Count MPV Neut % (Auto) Lymph % (Auto) Haines % (Auto) Eos % (Auto) Baso % (Auto) Neut # Lymph # Haines # Eos # Baso # Neutrophils % (Manual) Band Neutrophils % Lymphocytes % (Manual) Monocytes % (Manual) Eosinophils % (Manual) Toxic Granulation Platelet Estimate Polychromasia Hypochromasia (manual) Anisocytosis (manual) Retic Count PT INR APTT Puncture Site pCO2 pO2 HCO3 ABG pH ABG Total CO2 ABG O2 Saturation ABG Base Excess ABG Hemoglobin ABG Carboxyhemoglobin POC ABG HHb (Measured) ABG Methemoglobin Reese Test A-a O2 Difference Respiratory Index Hgb O2 Saturation Mechanical Rate FiO2 Tidal Volume PEEP Crit Value Called To Crit Value Called By Crit Value Read Back Blood Gas Notified Time Sodium Potassium Chloride Carbon Dioxide Anion Gap BUN Creatinine Est GFR ( Amer) Est GFR (Non-Af Amer) Random Glucose Calcium Phosphorus Magnesium Total Bilirubin AST ALT Alkaline Phosphatase Total Protein Albumin Globulin Albumin/Globulin Ratio Urine Color Yellow Urine Clarity Clear Urine pH 5.0 Ur Specific [place] 1.016 Urine Protein Negative Urine Glucose (UA) Normal Urine Ketones Negative Urine Blood Negative Urine Nitrate Negative Urine Bilirubin Negative Urine Urobilinogen Normal Ur Leukocyte Esterase Neg Urine WBC (Auto) 6 H Urine RBC (Auto) 4 H Urine Bacteria Rare Stool Occult Blood Negative Blood Type AB POSITIVE Antibody Screen Negative 11/25/16 11/25/16 11/25/16 05:17 06:30 07:00 WBC 20.3 H RBC 1.47 L Hgb 4.3 L* D Hct 13.4 L MCV 91.6 D MCH 29.5 MCHC 32.2 L RDW 16.3 H Plt Count 230 MPV 8.5 Neut % (Auto) 89.6 H Lymph % (Auto) 6.2 L Haines % (Auto) 3.9 Eos % (Auto) 0.0 Baso % (Auto) 0.3 Neut # 18.2 H Lymph # 1.3 Haines # 0.8 Eos # 0.0 Baso # 0.1 Neutrophils % (Manual) 85 H Band Neutrophils % 2 Lymphocytes % (Manual) 10 L Monocytes % (Manual) 2 Eosinophils % (Manual) 1 Toxic Granulation Present Platelet Estimate Normal Polychromasia Slight Hypochromasia (manual) Slight Anisocytosis (manual) Slight Retic Count PT INR APTT Puncture Site Lb pCO2 59 H pO2 124 H HCO3 32.1 H ABG pH 7.38 ABG Total CO2 36.7 H ABG O2 Saturation 100.2 H ABG Base Excess 9.2 H ABG Hemoglobin 4.4 L ABG Carboxyhemoglobin 3.8 H POC ABG HHb (Measured) -0.2 L ABG Methemoglobin 0.5 Reese Test Pos A-a O2 Difference 373.0 Respiratory Index 3.0 Hgb O2 Saturation 95.9 Mechanical Rate 20 FiO2 80.0 Tidal Volume 450 PEEP 12 Crit Value Called To Lizy antoine rn Crit Value Called By Rachael alfaro vat cleaner Crit Value Read Back Y Blood Gas Notified Time 546 Sodium 149 H Potassium 5.0 Chloride 105 Carbon Dioxide 35 H Anion Gap 14 BUN 80 H Creatinine 1.2 Est GFR ( Amer) 58 Est GFR (Non-Af Amer) 48 Random Glucose 140 H Calcium 7.0 L Phosphorus 4.8 H Magnesium 1.7 Total Bilirubin 0.6 AST 19 ALT 19 Alkaline Phosphatase 59 Total Protein 4.1 L Albumin 2.0 L D Globulin 2.1 L Albumin/Globulin Ratio 1.0 Urine Color Urine Clarity Urine pH Ur Specific [place] Urine Protein Urine Glucose (UA) Urine Ketones Urine Blood Urine Nitrate Urine Bilirubin Urine Urobilinogen Ur Leukocyte Esterase Urine WBC (Auto) Urine RBC (Auto) Urine Bacteria Stool Occult Blood Blood Type Antibody Screen 11/25/16 11/25/16 07:45 08:43 WBC RBC Hgb Hct MCV MCH MCHC RDW Plt Count MPV Neut % (Auto) Lymph % (Auto) Haines % (Auto) Eos % (Auto) Baso % (Auto) Neut # Lymph # Haines # Eos # Baso # Neutrophils % (Manual) Band Neutrophils % Lymphocytes % (Manual) Monocytes % (Manual) Eosinophils % (Manual) Toxic Granulation Platelet Estimate Polychromasia Hypochromasia (manual) Anisocytosis (manual) Retic Count 5.3 H D PT 19.4 H INR 1.7 APTT 28 Puncture Site pCO2 pO2 HCO3 ABG pH ABG Total CO2 ABG O2 Saturation ABG Base Excess ABG Hemoglobin ABG Carboxyhemoglobin POC ABG HHb (Measured) ABG Methemoglobin Reese Test A-a O2 Difference Respiratory Index Hgb O2 Saturation Mechanical Rate FiO2 Tidal Volume PEEP Crit Value Called To Crit Value Called By Crit Value Read Back Blood Gas Notified Time Sodium Potassium Chloride Carbon Dioxide Anion Gap BUN Creatinine Est GFR ( Amer) Est GFR (Non-Af Amer) Random Glucose Calcium Phosphorus Magnesium Total Bilirubin AST ALT Alkaline Phosphatase Total Protein Albumin Globulin Albumin/Globulin Ratio Urine Color Urine Clarity Urine pH Ur Specific [place] Urine Protein Urine Glucose (UA) Urine Ketones Urine Blood Urine Nitrate Urine Bilirubin Urine Urobilinogen Ur Leukocyte Esterase Urine WBC (Auto) Urine RBC (Auto) Urine Bacteria Stool Occult Blood Blood Type Antibody Screen EKG/Cardiology Studies: Cardiology / EKG Studies 11/24/16 23:03 EKG [ELECTROCARDIOGRAM] Stat Comment: Mode Of Transportation: PORTABLE Reason For Exam: svt Review of Systems - Review of Systems Systems not reviewed;Unavailable: Intubated Critical Care Progress Note - Ventilator Checklist Head of Bed 30 Degrees: Yes Daily Sedation Vacation: Yes Daily Assessment of Readiness to Learn: Yes Daily Spontaneous Breathing Trial: Yes PUD Prophalyxis: Yes DVT Prophylaxis: Yes Oral Care with Chlorhexidine Gluconate {CHG}: Yes - Vent Settings MODE:: PRVC TIDAL VOLUME:: 450 RESP RATE:: 20 FIO2:: 80 PEEP:: 12 - Extremities/Vascular Does the Patient have a Central Venous Catheter?: Yes Insertion Site: Internal Jugular Vein Does the Patient need a Central Venous Catheter?: Yes Does the Patient have a Mishra Catheter?: Yes Does the Patient need a Mishra Catheter?: Yes Catheter Insertion Criteria: Need for accurate measurement of output in critically ill patient - Prophylaxis GI Prophylaxis GI: Pepsid - Prophylaxis DVT Prophylaxis DVT: Not Indicated (bleeding) Assessment/Plan - Assessment and Plan (Free Text) Assessment: 51F POD#7 s/p RLL wedge resection, intubated/sedated, requiring high pulmonary support measures on [facility] vent- will attempt to wean. Pt less alert, tachycardic. Pt w/davina melena - ordering 3 units pRBCS, 1 platelets. For EGD w/ GI. Plan: Neuro Sedated- Fentanyl drip, Propofol drip, Versed drip Cont home meds: Zoloft, Keppra Seroquel Seizure precautions Monitor CVS Hypotensive tachycardiac ASA - held Plavix - held Monitor Pulm POD#7 s/p RLL wedge resection ABG pH 7.38 O2 124, CO2 59, HCO3 32.1 Intubated ON mech vent protective lung protocol Dukirsty Solu-medrol CXR - Persistent diffuse increased interstitial lung markings B/L w/more prominent consolidative changes in R infrahilar region. FU path Pulm following Nephro Hyperphosphatemia- PHos 4.8 Monitor GI Melena x [address] - to suction Tube feeds held 2/2 to gastric distention on CXR Lactulose -d/c'd Sulcrafate Gen surg following- SBO mgmt as per surgery GI consulted- EGD neg for bleed, pos for gastritis- hold anticoagulation, no need for Protonix drip, will d/c and restart protonix BID Mishra in place MOnitor UOP Heme Hgb 4.3 from 8.6 Hct 13.4 from 26.5 PT 19.4 INR 1.7 PTT 28 FU FOB Type & Cross 3 units pRBCs 1 unit plts 2/2 anti-platelet therapy Ddavp given Emergent EGD as per GI CT w/small amount of serosanguinous output Endo Sugars WNL Monitor MSK Monitor for skin break down ID Leukocytosis 20.3 from 23.9 Acyclovir Micafungin Febrile over last 24H, Tmax 101.4 Tylenol PRN ID following GI/DVT ppx Pepcid SCDs Lovenox d/c'd 2/2 GI bleed Contraindications to DVT ppx Dispo: Cont ICU care On mech vent transfuse blood products FU repeat CBC at 3pm Monitor [email or web address] attending - Date & Time Date: 11/25/16 Time: 07:00 <Hunter Graham S - Last Filed: 11/25/16 17:16> CCU Objective - Vital Signs / Intake & Output Vital Signs (Last 4 hours): Vital Signs Temp Pulse Resp BP Pulse Ox 11/25/16 16:55 133/78 11/25/16 16:45 101.1 F H 152 H 21 133/78 11/25/16 16:30 101.1 F H 144 H 22 118/61 11/25/16 16:15 100.8 F H 145 H 20 114/64 11/25/16 16:00 100.8 F H 144 H 20 109/73 92 L 02/08/17 15:20 118/72 11/25/16 15:00 143 H 20 118/72 93 L 11/25/16 14:00 100.8 F H 138 H 21 101/66 92 L Intake and Output (Last 8hrs): Intake & Output 11/25/16 11/25/16 11/25/16 06:59 14:59 22:59 Intake Total 992.0 1502.0 193.0 Output Total 620 430 150 Balance 372.0 1072.0 43.0 Weight 136 lb Intake: Intake, IV Amount 992.0 582.0 73.0 Right Forearm 40 Right Medial Port 700 Internal Jugular Right Distal Port 24 24 6 Internal Jugular Right Proximal Port 268.0 317.0 Internal Jugular RT IJ TLC Distal port 2 201.0 67.0 Blood Product 920 120 Apheresis Platelets Acda 20 Lr Unit [id number] Output: Gastric Amount 250 Stomach 250 Urine 370 430 150 Urethral (Mishra) 370 430 150 - Medications Active Medications: Active Medications Generic Name Dose Route Start Last Admin Trade Name Freq PRN Reason Stop Dose Admin Albuterol/Ipratropium 3 ml 11/19/16 02:00 11/25/16 13:15 Duoneb 3 Mg/0.5 Mg (3 Ml) Ud INH Not Given RQ6 [facility] Aspirin 81 mg 11/07/16 10:00 11/23/16 09:23 Aspirin Chewable PO Not Given DAILY [facility] Clopidogrel Bisulfate 75 mg 11/07/16 10:00 11/23/16 10:33 Plavix PO Not Given DAILY [facility] Enoxaparin Sodium 40 mg 11/07/16 10:00 11/24/16 09:49 Lovenox SC 40 mg DAILY [facility] Administration Fentanyl Citrate 2,500 mcg/ 250 mls @ 70 mls/hr 11/19/16 10:35 11/25/16 09:46 Sodium Chloride IV 35 mls/hr .Q3H35M [facility] Administration Protocol 10 MCG/KG/HR Midazolam HCl 100 mg/ Sodium 100 mls @ 1.4 mls/hr 11/20/16 15:00 11/24/16 15:38 Chloride IV 3 mls/hr .Q24H PRN Administration FOLLOW PROTOCOL Protocol 0.02 MG/KG/HR Levetiracetam 500 mg/ Sodium 105 mls @ 420 mls/hr 11/21/16 11:00 11/25/16 11:15 Chloride IVPB 420 mls/hr Q12H [facility] Administration Acyclovir 500 mg/ Sodium 100 mls @ 100 mls/hr 11/24/16 10:00 11/25/16 09:34 Chloride IV 100 mls/hr Q12H [facility] Administration Micafungin Sodium 100 mg/ 100 mls @ 100 mls/hr 11/24/16 22:30 11/24/16 23:16 Sodium Chloride IV 100 mls/hr Q24H [facility] Administration Albumin Human 50 mls @ 1 mls/min 11/25/16 16:35 11/25/16 16:54 Albumin Human 25% (12.5 Gm/50 Ml) IVPB 11/25/16 17:24 1 mls/min ONCE ONE Administration Acetaminophen 1,000 mg/ 100 mls @ 400 mls/hr 11/25/16 17:00 Miscellaneous IV 11/25/16 17:14 ONCE ONE Methylprednisolone 60 mg 11/24/16 14:00 11/25/16 13:38 Solu-Medrol IV 60 mg Q8 [place] Administration Pantoprazole Sodium 40 mg 11/24/16 07:00 11/25/16 06:01 Protonix Inj IVP 40 mg Q12H [place] Administration Quetiapine Fumarate 25 mg 11/24/16 10:00 11/25/16 13:40 Seroquel PO Not Given DAILY [place] Sertraline HCl 25 mg 11/24/16 10:00 11/25/16 13:41 Zoloft PO Not Given DAILY [place] Sucralfate 1 gm 11/24/16 07:00 11/25/16 13:38 Carafate Oral Susp PO 1 gm Q6H [place] Administration - Patient Studies Lab Studies: Lab Studies 11/25/16 11/25/16 11/25/16 Range/Units 15:33 08:43 07:45 WBC 21.6 H (4.8-10.8) K/uL RBC 3.44 L (3.80-5.20) Mil/uL Hgb 10.2 L D (11.0-16.0) g/dL Hct 30.7 L (34.0-47.0) % MCV 89.3 D (81.0-99.0) fL MCH 29.7 (27.0-31.0) pg MCHC 33.3 (33.0-37.0) g/dL RDW 15.3 H (11.5-14.5) % Plt Count 175 (130-400) K/uL MPV 8.7 (7.2-11.7) fL Neut % (Auto) 90.9 H (50.0-75.0) % Lymph % (Auto) 5.3 L (20.0-40.0) % [place] % (Auto) 3.8 (0.0-10.0) % Eos % (Auto) 0.0 (0.0-4.0) % Baso % (Auto) 0.0 (0.0-2.0) % Neut # 19.6 H (1.8-7.0) K/uL Lymph # 1.1 (1.0-4.3) K/uL [place] # 0.8 (0.0-0.8) K/uL Eos # 0.0 (0.0-0.7) K/uL Baso # 0.0 (0.0-0.2) K/uL Neutrophils % (Manual) 93 H (50-75) % Band Neutrophils % (0-2) % Lymphocytes % (Manual) 5 L (20-40) % Monocytes % (Manual) 2 (0-10) % Eosinophils % (Manual) (0-4) % Nucleated RBC % 1 H (0-0) % Toxic Granulation Platelet Estimate Normal (NORMAL) Polychromasia Hypochromasia (manual) Slight Poikilocytosis (manual Slight Anisocytosis (manual) Slight [place] Cells Slight Retic Count 5.3 H D (0.5-1.5) % PT 19.4 H (9.7-12.2) SECONDS INR 1.7 APTT 28 (21-34) SECONDS Puncture Site pCO2 (35-45) mm/Hg pO2 (80-100) mm/Hg HCO3 (21-28) mmol/L ABG pH (7.35-7.45) ABG Total CO2 (22-28) mmol/L ABG O2 Saturation (95-98) % ABG Base Excess (-2.0-3.0) mmol/L ABG Hemoglobin (11.7-17.4) g/dL ABG Carboxyhemoglobin (0.5-1.5) % POC ABG HHb (Measured) (0.0-5.0) % ABG Methemoglobin (0.0-3.0) % Reese Test A-a O2 Difference mm/Hg Respiratory Index Hgb O2 Saturation (95.0-98.0) % Mechanical Rate FiO2 % Tidal Volume PEEP Crit Value Called To Crit Value Called By Crit Value Read Back Blood Gas Notified Time Sodium (132-148) mmol/L Potassium (3.6-5.2) mmol/L Chloride (98-107) mmol/L Carbon Dioxide (22-30) mmol/L Anion Gap (10-20) BUN (7-17) mg/dL Creatinine (0.7-1.2) MG/DL Est GFR ( Amer) Est GFR (Non-Af Amer) Random Glucose (65-105) mg/dL Calcium (8.6-10.4) mg/dl Phosphorus (2.5-4.5) mg/dL Magnesium (1.6-2.3) mg/dL Total Bilirubin (0.2-1.3) mg/dL AST (14-36) U/L ALT (9-52) U/L Alkaline Phosphatase (38-126) U/L Total Protein (6.3-8.3) g/dL Albumin (3.5-5.0) g/dL Globulin (2.2-3.9) gm/dL Albumin/Globulin Ratio (1.0-2.1) Urine Color (YELLOW) Urine Clarity (Clear) Urine pH (5.0-8.0) Ur Specific [place] (1.003-1.030) Urine Protein (NEGATIVE) mg/dL Urine Glucose (UA) (Normal) mg/dL Urine Ketones (NEGATIVE) mg/dL Urine Blood (NEGATIVE) Urine Nitrate (NEGATIVE) Urine Bilirubin (NEGATIVE) Urine Urobilinogen (0.2-1.0) mg/dL Ur Leukocyte Esterase (Negative) Sung/uL Urine WBC (Auto) (0-5) /hpf Urine RBC (Auto) (0-3) /hpf Urine Bacteria (<OCC) Stool Occult Blood (NEGATIVE) Blood Type Antibody Screen 11/25/16 11/25/16 11/25/16 Range/Units 07:00 06:30 05:17 WBC 20.3 H (4.8-10.8) K/uL RBC 1.47 L (3.80-5.20) Mil/uL Hgb 4.3 L* D (11.0-16.0) g/dL Hct 13.4 L (34.0-47.0) % MCV 91.6 D (81.0-99.0) fL MCH 29.5 (27.0-31.0) pg MCHC 32.2 L (33.0-37.0) g/dL RDW 16.3 H (11.5-14.5) % Plt Count 230 (130-400) K/uL MPV 8.5 (7.2-11.7) fL Neut % (Auto) 89.6 H (50.0-75.0) % Lymph % (Auto) 6.2 L (20.0-40.0) % [place]aines % (Auto) 3.9 (0.0-10.0) % Eos % (Auto) 0.0 (0.0-4.0) % Baso % (Auto) 0.3 (0.0-2.0) % Neut # 18.2 H (1.8-7.0) K/uL Lymph # 1.3 (1.0-4.3) K/uL [place]aines # 0.8 (0.0-0.8) K/uL Eos # 0.0 (0.0-0.7) K/uL Baso # 0.1 (0.0-0.2) K/uL Neutrophils % (Manual) 85 H (50-75) % Band Neutrophils % 2 (0-2) % Lymphocytes % (Manual) 10 L (20-40) % Monocytes % (Manual) 2 (0-10) % Eosinophils % (Manual) 1 (0-4) % Nucleated RBC % (0-0) % Toxic Granulation Present Platelet Estimate Normal (NORMAL) Polychromasia Slight Hypochromasia (manual) Slight Poikilocytosis (manual Anisocytosis (manual) Slight [place] Cells Retic Count (0.5-1.5) % PT (9.7-12.2) SECONDS INR APTT (21-34) SECONDS Puncture Site Lb pCO2 59 H (35-45) mm/Hg pO2 124 H (80-100) mm/Hg HCO3 32.1 H (21-28) mmol/L ABG pH 7.38 (7.35-7.45) ABG Total CO2 36.7 H (22-28) mmol/L ABG O2 Saturation 100.2 H (95-98) % ABG Base Excess 9.2 H (-2.0-3.0) mmol/L ABG Hemoglobin 4.4 L (11.7-17.4) g/dL ABG Carboxyhemoglobin 3.8 H (0.5-1.5) % POC ABG HHb (Measured) -0.2 L (0.0-5.0) % ABG Methemoglobin 0.5 (0.0-3.0) % Reese Test Pos A-a O2 Difference 373.0 mm/Hg Respiratory Index 3.0 Hgb O2 Saturation 95.9 (95.0-98.0) % Mechanical Rate 20 FiO2 80.0 % Tidal Volume 450 PEEP 12 Crit Value Called To Lizy antoine rn Crit Value Called By Rachael alfaro vat cleaner Crit Value Read Back Y Blood Gas Notified Time 546 Sodium 149 H (132-148) mmol/L Potassium 5.0 (3.6-5.2) mmol/L Chloride 105 (98-107) mmol/L Carbon Dioxide 35 H (22-30) mmol/L Anion Gap 14 (10-20) BUN 80 H (7-17) mg/dL Creatinine 1.2 (0.7-1.2) MG/DL Est GFR ( Amer) 58 Est GFR (Non-Af Amer) 48 Random Glucose 140 H (65-105) mg/dL Calcium 7.0 L (8.6-10.4) mg/dl Phosphorus 4.8 H (2.5-4.5) mg/dL Magnesium 1.7 (1.6-2.3) mg/dL Total Bilirubin 0.6 (0.2-1.3) mg/dL AST 19 (14-36) U/L ALT 19 (9-52) U/L Alkaline Phosphatase 59 (38-126) U/L Total Protein 4.1 L (6.3-8.3) g/dL Albumin 2.0 L D (3.5-5.0) g/dL Globulin 2.1 L (2.2-3.9) gm/dL Albumin/Globulin Ratio 1.0 (1.0-2.1) Urine Color (YELLOW) Urine Clarity (Clear) Urine pH (5.0-8.0) Ur Specific [place] (1.003-1.030) Urine Protein (NEGATIVE) mg/dL Urine Glucose (UA) (Normal) mg/dL Urine Ketones (NEGATIVE) mg/dL Urine Blood (NEGATIVE) Urine Nitrate (NEGATIVE) Urine Bilirubin (NEGATIVE) Urine Urobilinogen (0.2-1.0) mg/dL Ur Leukocyte Esterase (Negative) Sung/uL Urine WBC (Auto) (0-5) /hpf Urine RBC (Auto) (0-3) /hpf Urine Bacteria (<OCC) Stool Occult Blood (NEGATIVE) Blood Type Antibody Screen 11/25/16 11/24/16 11/23/16 Range/Units 01:11 08:30 12:30 WBC (4.8-10.8) K/uL RBC (3.80-5.20) Mil/uL Hgb (11.0-16.0) g/dL Hct (34.0-47.0) % MCV (81.0-99.0) fL MCH (27.0-31.0) pg MCHC (33.0-37.0) g/dL RDW (11.5-14.5) % Plt Count (130-400) K/uL MPV (7.2-11.7) fL Neut % (Auto) (50.0-75.0) % Lymph % (Auto) (20.0-40.0) % [place]aines % (Auto) (0.0-10.0) % Eos % (Auto) (0.0-4.0) % Baso % (Auto) (0.0-2.0) % Neut # (1.8-7.0) K/uL Lymph # (1.0-4.3) K/uL Haines # (0.0-0.8) K/uL Eos # (0.0-0.7) K/uL Baso # (0.0-0.2) K/uL Neutrophils % (Manual) (50-75) % Band Neutrophils % (0-2) % Lymphocytes % (Manual) (20-40) % Monocytes % (Manual) (0-10) % Eosinophils % (Manual) (0-4) % Nucleated RBC % (0-0) % Toxic Granulation Platelet Estimate (NORMAL) Polychromasia Hypochromasia (manual) Poikilocytosis (manual Anisocytosis (manual) [place] Cells Retic Count (0.5-1.5) % PT (9.7-12.2) SECONDS INR APTT (21-34) SECONDS Puncture Site pCO2 (35-45) mm/Hg pO2 (80-100) mm/Hg HCO3 (21-28) mmol/L ABG pH (7.35-7.45) ABG Total CO2 (22-28) mmol/L ABG O2 Saturation (95-98) % ABG Base Excess (-2.0-3.0) mmol/L ABG Hemoglobin (11.7-17.4) g/dL ABG Carboxyhemoglobin (0.5-1.5) % POC ABG HHb (Measured) (0.0-5.0) % ABG Methemoglobin (0.0-3.0) % Reese Test A-a O2 Difference mm/Hg Respiratory Index Hgb O2 Saturation (95.0-98.0) % Mechanical Rate FiO2 % Tidal Volume PEEP Crit Value Called To Crit Value Called By Crit Value Read Back Blood Gas Notified Time Sodium (132-148) mmol/L Potassium (3.6-5.2) mmol/L Chloride (98-107) mmol/L Carbon Dioxide (22-30) mmol/L Anion Gap (10-20) BUN (7-17) mg/dL Creatinine (0.7-1.2) MG/DL Est GFR ( Amer) Est GFR (Non-Af Amer) Random Glucose (65-105) mg/dL Calcium (8.6-10.4) mg/dl Phosphorus (2.5-4.5) mg/dL Magnesium (1.6-2.3) mg/dL Total Bilirubin (0.2-1.3) mg/dL AST (14-36) U/L ALT (9-52) U/L Alkaline Phosphatase (38-126) U/L Total Protein (6.3-8.3) g/dL Albumin (3.5-5.0) g/dL Globulin (2.2-3.9) gm/dL Albumin/Globulin Ratio (1.0-2.1) Urine Color Yellow (YELLOW) Urine Clarity Clear (Clear) Urine pH 5.0 (5.0-8.0) Ur Specific [place] 1.016 (1.003-1.030) Urine Protein Negative (NEGATIVE) mg/dL Urine Glucose (UA) Normal (Normal) mg/dL Urine Ketones Negative (NEGATIVE) mg/dL Urine Blood Negative (NEGATIVE) Urine Nitrate Negative (NEGATIVE) Urine Bilirubin Negative (NEGATIVE) Urine Urobilinogen Normal (0.2-1.0) mg/dL Ur Leukocyte Esterase Neg (Negative) Sung/uL Urine WBC (Auto) 6 H (0-5) /hpf Urine RBC (Auto) 4 H (0-3) /hpf Urine Bacteria Rare (<OCC) Stool Occult Blood Negative (NEGATIVE) Blood Type AB POSITIVE Antibody Screen Negative Laboratory Results - last 24 hr 11/23/16 11/24/16 11/25/16 12:30 08:30 01:11 WBC RBC Hgb Hct MCV MCH MCHC RDW Plt Count MPV Neut % (Auto) Lymph % (Auto) [place] % (Auto) Eos % (Auto) Baso % (Auto) Neut # Lymph # [place] # Eos # Baso # Neutrophils % (Manual) Band Neutrophils % Lymphocytes % (Manual) Monocytes % (Manual) Eosinophils % (Manual) Nucleated RBC % Toxic Granulation Platelet Estimate Polychromasia Hypochromasia (manual) Poikilocytosis (manual Anisocytosis (manual) [place] Cells Retic Count PT INR APTT Puncture Site pCO2 pO2 HCO3 ABG pH ABG Total CO2 ABG O2 Saturation ABG Base Excess ABG Hemoglobin ABG Carboxyhemoglobin POC ABG HHb (Measured) ABG Methemoglobin Reese Test A-a O2 Difference Respiratory Index Hgb O2 Saturation Mechanical Rate FiO2 Tidal Volume PEEP Crit Value Called To Crit Value Called By Crit Value Read Back Blood Gas Notified Time Sodium Potassium Chloride Carbon Dioxide Anion Gap BUN Creatinine Est GFR ( Amer) Est GFR (Non-Af Amer) Random Glucose Calcium Phosphorus Magnesium Total Bilirubin AST ALT Alkaline Phosphatase Total Protein Albumin Globulin Albumin/Globulin Ratio Urine Color Yellow Urine Clarity Clear Urine pH 5.0 Ur Specific [place] 1.016 Urine Protein Negative Urine Glucose (UA) Normal Urine Ketones Negative Urine Blood Negative Urine Nitrate Negative Urine Bilirubin Negative Urine Urobilinogen Normal Ur Leukocyte Esterase Neg Urine WBC (Auto) 6 H Urine RBC (Auto) 4 H Urine Bacteria Rare Stool Occult Blood Negative Blood Type AB POSITIVE Antibody Screen Negative 11/25/16 11/25/16 11/25/16 05:17 06:30 07:00 WBC 20.3 H RBC 1.47 L Hgb 4.3 L* D Hct 13.4 L MCV 91.6 D MCH 29.5 MCHC 32.2 L RDW 16.3 H Plt Count 230 MPV 8.5 Neut % (Auto) 89.6 H Lymph % (Auto) 6.2 L [place] % (Auto) 3.9 Eos % (Auto) 0.0 Baso % (Auto) 0.3 Neut # 18.2 H Lymph # 1.3 [place] # 0.8 Eos # 0.0 Baso # 0.1 Neutrophils % (Manual) 85 H Band Neutrophils % 2 Lymphocytes % (Manual) 10 L Monocytes % (Manual) 2 Eosinophils % (Manual) 1 Nucleated RBC % Toxic Granulation Present Platelet Estimate Normal Polychromasia Slight Hypochromasia (manual) Slight Poikilocytosis (manual Anisocytosis (manual) Slight [place] Cells Retic Count PT INR APTT Puncture Site Lb pCO2 59 H pO2 124 H HCO3 32.1 H ABG pH 7.38 ABG Total CO2 36.7 H ABG O2 Saturation 100.2 H ABG Base Excess 9.2 H ABG Hemoglobin 4.4 L ABG Carboxyhemoglobin 3.8 H POC ABG HHb (Measured) -0.2 L ABG Methemoglobin 0.5 Reese Test Pos A-a O2 Difference 373.0 Respiratory Index 3.0 Hgb O2 Saturation 95.9 Mechanical Rate 20 FiO2 80.0 Tidal Volume 450 PEEP 12 Crit Value Called To Lizy antoine rn Crit Value Called By Rachael alfaro vat cleaner Crit Value Read Back Y Blood Gas Notified Time 546 Sodium 149 H Potassium 5.0 Chloride 105 Carbon Dioxide 35 H Anion Gap 14 BUN 80 H Creatinine 1.2 Est GFR ( Amer) 58 Est GFR (Non-Af Amer) 48 Random Glucose 140 H Calcium 7.0 L Phosphorus 4.8 H Magnesium 1.7 Total Bilirubin 0.6 AST 19 ALT 19 Alkaline Phosphatase 59 Total Protein 4.1 L Albumin 2.0 L D Globulin 2.1 L Albumin/Globulin Ratio 1.0 Urine Color Urine Clarity Urine pH Ur Specific [place] Urine Protein Urine Glucose (UA) Urine Ketones Urine Blood Urine Nitrate Urine Bilirubin Urine Urobilinogen Ur Leukocyte Esterase Urine WBC (Auto) Urine RBC (Auto) Urine Bacteria Stool Occult Blood Blood Type Antibody Screen 11/25/16 11/25/16 11/25/16 07:45 08:43 15:33 WBC 21.6 H RBC 3.44 L Hgb 10.2 L D Hct 30.7 L MCV 89.3 D MCH 29.7 MCHC 33.3 RDW 15.3 H Plt Count 175 MPV 8.7 Neut % (Auto) 90.9 H Lymph % (Auto) 5.3 L [place] % (Auto) 3.8 Eos % (Auto) 0.0 Baso % (Auto) 0.0 Neut # 19.6 H Lymph # 1.1 [place]aines # 0.8 Eos # 0.0 Baso # 0.0 Neutrophils % (Manual) 93 H Band Neutrophils % Lymphocytes % (Manual) 5 L Monocytes % (Manual) 2 Eosinophils % (Manual) Nucleated RBC % 1 H Toxic Granulation Platelet Estimate Normal Polychromasia Hypochromasia (manual) Slight Poikilocytosis (manual Slight Anisocytosis (manual) Slight [place] Cells Slight Retic Count 5.3 H D PT 19.4 H INR 1.7 APTT 28 Puncture Site pCO2 pO2 HCO3 ABG pH ABG Total CO2 ABG O2 Saturation ABG Base Excess ABG Hemoglobin ABG Carboxyhemoglobin POC ABG HHb (Measured) ABG Methemoglobin Reese Test A-a O2 Difference Respiratory Index Hgb O2 Saturation Mechanical Rate FiO2 Tidal Volume PEEP Crit Value Called To Crit Value Called By Crit Value Read Back Blood Gas Notified Time Sodium Potassium Chloride Carbon Dioxide Anion Gap BUN Creatinine Est GFR ( Amer) Est GFR (Non-Af Amer) Random Glucose Calcium Phosphorus Magnesium Total Bilirubin AST ALT Alkaline Phosphatase Total Protein Albumin Globulin Albumin/Globulin Ratio Urine Color Urine Clarity Urine pH Ur Specific [place] Urine Protein Urine Glucose (UA) Urine Ketones Urine Blood Urine Nitrate Urine Bilirubin Urine Urobilinogen Ur Leukocyte Esterase Urine WBC (Auto) Urine RBC (Auto) Urine Bacteria Stool Occult Blood Blood Type Antibody Screen EKG/Cardiology Studies: Cardiology / EKG Studies 11/24/16 23:03 EKG [ELECTROCARDIOGRAM] Stat Comment: Mode Of Transportation: PORTABLE Reason For Exam: svt Assessment/Plan (1) Respiratory insufficiency Current Visit: Yes Status: Acute (2) Bilateral pneumonia Current Visit: No Status: Acute (3) Small bowel obstruction Current Visit: Yes Status: Acute Attending/Attestation - Attestation I have personally seen and examined this patient.: Yes I have fully participated in the care of the patient.: Yes I have reviewed all pertinent clinical information: Yes Notes (Text): 11/25/16 17:13 Patient seen and examined in the intensive care unit. Case discussed with house staff in the morning rounds. FiO2 reduced to 70% with saturation in the mid 90s, PEEP of 12 Hemoglobin dropped in the mid 4 Large melanotic stools Transfuse 3 units packed RBCs Transfuse platelets and DDAVP to reverse affect off Plavix Seen by GI status post EGD with gastritis. Started on Protonix Repeat culture and sensitivity ID follow-up
--- NOTE | 2016-11-25 14:12 | RAD ---
HISTORY: confirm NG Tube position COMPARISON: 11/25/2016, earlier on the same day. FINDINGS: LUNGS: Mild hazy opacity in the lung bases. PLEURA: No significant pleural effusion identified, no pneumothorax apparent. CARDIOVASCULAR: Normal. OSSEOUS STRUCTURES: No significant abnormalities. VISUALIZED UPPER ABDOMEN: Suboptimally seen. OTHER FINDINGS: ETT with the distal tip above the tracheal bifurcation. Feeding tube now seen with the distal tip projecting in the mid chest. Presumed vascular catheter in the right neck with the distal tip of the catheter overlying the projection of the SVC/right atrial junction. IMPRESSION: Feeding tube, now seen with the distal tip projecting in the mid chest. CIRO [place] notified at approximately 2:10 p.m. on 11/25/2016.
--- NOTE | 2016-11-25 15:28 | RAD ---
HISTORY: pulmonary edema COMPARISON: Earlier on the same day. FINDINGS: LUNGS: Hazy opacity in the right lung again seen. PLEURA: No significant pleural effusion identified, no pneumothorax apparent. CARDIOVASCULAR: Normal. OSSEOUS STRUCTURES: The osseous structures demonstrate degenerative changes. VISUALIZED UPPER ABDOMEN: Surgical clips noted. OTHER FINDINGS: ET tube above the tracheal bifurcation. Presumed vascular catheter in the right neck with the distal tip of the catheter overlying the projection of the SVC/right atrial junction. Feeding tube now seen with the distal tip coursing below the diaphragm. IMPRESSION: Feeding tube now seen with the distal tip coursing below the diaphragm. Other findings as above.
[2016-11-25 15:41] LABS: HEMATOCRIT 30.7 % (34.0-47.0); LYMPH # 1.1 K/uL (1.0-4.3); LYMPH % 5.3 % (20.0-40.0); MEAN CORPUSCULAR HEMOGLOBIN 29.7 pg (27.0-31.0); MEAN CORPUSCULAR HGB CONC 33.3 g/dL (33.0-37.0); MEAN PLATELET VOLUME 8.7 fL (7.2-11.7); MONO # 0.8 K/uL (0.0-0.8); MONO % 3.8 % (0.0-10.0); NRBC % 0.3 % (0.0-2.0); PLATELET COUNT 175 K/uL (130-400); RED CELL DISTRIBUTION WIDTH 15.3 % (11.5-14.5); WHITE BLOOD COUNT 21.6 K/uL (4.8-10.8)
[2016-11-25 15:44] LABS: MEAN CELL VOLUME 89.3 fL (81.0-99.0)
[2016-11-25 16:03] LABS: NEUTROPHIL 93 % (50-75); NUCLEATED RED BLOOD CELL 1 % (0-0); TOTAL CELLS COUNTED 100
[2016-11-25] MEDS ORDERED: Acetaminophen IV 1,000 MG in Premixed IV 1 EA IV ONE (17:00)
[2016-11-25] MEDS: Midazolam 50 mg/10 ml 100 MG in Sodium Chloride 0.9% 80 ML IV PRN (17:54)
[2016-11-25] MEDS ORDERED: Metoprolol 1 mg/ml Inj IVP ONE (18:41)
--- NOTE | 2016-11-25 20:53 | CP.PCM.PN ---
Subjective - Date & Time of Evaluation Date of Evaluation: 11/25/16 Time of Evaluation: 20:53 - Subjective Subjective: CHIEF COMPLAINTS TODAY : patient in ICU, T. MAX 101.4 , TACHYCARDIC BP 95/50 -Remains intubated on ventilat support Requiring high pulmonary support S/P RLLWEDGE BIOPSY- # day 7 tachycardic and pale, MELANOTIC STOOLS NOTED BY RN s/p 3 units packed red blood cells, 1 platelets s/p EGD TODAY-FINDINGS NOTED ROS. ON OBSERVATION HEENT : N. Resp : No cough, +ve rhonchi , no pleuritic CP ,or hemoptysis .RT CHEST TUBE IN PLACE Cardio : No anginal CP, PND, orthopnea, palpitation GI : NO n/v ,diarrhea or GI bleeding . DOOR CLAMPER : No headache, vertigo, focal deficit / Musculoskel : No joint swelling , Derm : No rash Psych : Normal affect. Ext : No swelling ,calf pain PE. Pt. ON VENTILATOR, RT.IJ CATHETER IN PLACE V.S As noted in the chart Head ,ear nose,throat and eyes : Normal. Neck : Supple with normal carotids. Lungs: BILATERAL RHONCHI AND EXPIRATORY WHEEZE. RT. CT IN PLACE DRAINING SEROSANGUINEOUS DRAINAGE.. Heart : S1 & S2 normal with S4. No murmur. Abd : soft, with HYPOACTIVE bowel sounds. Neuro : Moves all ext. with no localized deficit. Ext : No edema with intact pulses.Non tender calves Bilateral Venodyne. Derm : No rashes or decubitus ulcer. LABS/RADIOLOGY: 11/25/16 wbc 20.3. H/H 4.3/13.4 Platelets normal Stools negative for occult blood lfts N CMV DNA PCR <200 NOT DETECTED CHEST X-RAY 11/25/16--HAZY OPACITY RIGHT LUNG. CXR - Diffuse confluent airspace opacities B/L lungs w/prominent increased interstitial lung markings. Not sig changed vs prior study. URINE CULTURE 11/17/16 YEAST SPECIES URINE CULTURE SENSITIVITY 11/08/16 +VE Klebsiella pneumoniae s-Cipro, Primaxin , BLOOD CULTURES 11/08 NEGATIVE FOR 48 HOURS Objective - Vital Signs/Intake and Output Vital Signs (last 24 hours): Temp Pulse Resp BP Pulse Ox 99.2 F 124 H 20 95/50 L 93 L 11/25/16 19:30 11/25/16 19:30 11/25/16 19:30 11/25/16 19:30 11/25/16 19:30 Intake and Output: 11/25/16 11/26/16 18:59 06:59 Intake Total 2698.0 218.5 Output Total 1225 90 Balance 1473.0 128.5 - Medications Medications: Current Medications Albuterol/Ipratropium (Duoneb 3 Mg/0.5 Mg (3 Ml) Ud) 3 ml INH RQ6 [facility] Last Admin: 11/25/16 19:25 Dose: 3 ml Aspirin (Aspirin Chewable) 81 mg PO DAILY [facility] Last Admin: 11/23/16 09:23 Dose: Not Given Clopidogrel Bisulfate (Plavix) 75 mg PO DAILY [facility] Last Admin: 11/23/16 10:33 Dose: Not Given Enoxaparin Sodium (Lovenox) 40 mg SC DAILY [facility] Last Admin: 11/24/16 09:49 Dose: 40 mg Fentanyl Citrate 2,500 mcg/ (Sodium Chloride) 250 mls @ 70 mls/hr IV .Q3H35M [place]; 10 MCG/KG/HR PRN Reason: Protocol Last Admin: 11/25/16 17:46 Dose: 35 mls/hr Midazolam HCl 100 mg/ Sodium (Chloride) 100 mls @ 1.4 mls/hr IV .Q24H PRN; Protocol; 0.02 MG/KG/HR PRN Reason: FOLLOW PROTOCOL Last Admin: 11/25/16 17:54 Dose: 3 mls/hr Levetiracetam 500 mg/ Sodium (Chloride) 105 mls @ 420 mls/hr IVPB Q12H [facility] Last Admin: 11/25/16 11:15 Dose: 420 mls/hr Acyclovir 500 mg/ Sodium (Chloride) 100 mls @ 100 mls/hr IV Q12H [facility] Last Admin: 11/25/16 09:34 Dose: 100 mls/hr Micafungin Sodium 100 mg/ (Sodium Chloride) 100 mls @ 100 mls/hr IV Q24H [facility] Last Admin: 11/24/16 23:16 Dose: 100 mls/hr Methylprednisolone (Solu-Medrol) 60 mg IV Q8 [facility] Last Admin: 11/25/16 13:38 Dose: 60 mg Pantoprazole Sodium (Protonix Inj) 40 mg IVP Q12H [facility] Last Admin: 11/25/16 18:09 Dose: 40 mg Quetiapine Fumarate (Seroquel) 25 mg PO DAILY [facility] Last Admin: 11/25/16 13:40 Dose: Not Given Sertraline HCl (Zoloft) 25 mg PO DAILY [facility] Last Admin: 11/25/16 13:41 Dose: Not Given Sucralfate (Carafate Oral Susp) 1 gm PO Q6H [facility] Last Admin: 11/25/16 18:10 Dose: 1 gm - Labs Labs: 11/25/16 15:33 11/25/16 06:30 PT 19.4 SECONDS (9.7-12.2) H 11/25/16 08:43 INR 1.7 11/25/16 08:43 APTT 28 SECONDS (21-34) 11/25/16 08:43 Assessment and Plan (1) Acute respiratory failure with hypoxia Status: Acute (2) Abdominal pain Status: Acute (3) Bilateral pneumonia Status: Acute (4) COPD (chronic obstructive pulmonary disease) Status: Acute (5) Anemia Status: Acute (6) Urinary tract infection Status: Acute - Assessment and Plan (Free Text) Assessment: IMPRESSION; > RESPIRATORY FAILURE/HYPOXIA BILATERAL PNEUMONIA R/O ATYPICAL PNEUMONIA.(HISTORY OF CHANTELL-PARAPSILOSIS PNEUMONIA SEP 2016 S/FOB ) S/P VATS AND CT/WEDGE BX RLL R/O ILD/FIBROSIS VS OCCULT INFECTION > EXACERBATION OF COPD. > lEUKOCYTOSIS ? STEROID VS SEPSIS > ABDOMINAL PAIN -PARTIAL SMALL BOWEL OBSTRUCTION. (CT ABD /PELVIS-SEE REPORT ) HX OF EXPLORATORY LAP/LYLE AUG 2016. > UROSEPSIS +VE kLEBSIELLA PNEUMONIAE/ S/P CANDIDURIA > CHF./CAD. > ANEMIA -gi BLEEDING S/P EGD 11/25/16 >HISTORY OF SERONEGATIVE LUPUS ON PLAQUENIL. >DEPRESSION/ANXIETY. PLAN; START iv PRIMAXIN 500 MG EVERY 8 HOURLY WHILE AWAITING BLOOD CULTURES.11/25/16 ON iv ACYCLOVIR NOTED BY [employer] MANAGER 11/24/16 pANCULTURES-P ua URINE CULTURE REPEAT-P ON iv MICAFUNGIN 100 MG iv PIGGYBACK ONCE A DAY DAILY TO COVER FOR FUNGEMIA PATIENT HIGH-DOSE STEROIDS 11/24/16 PATIENT high-DOSE STEROIDS PER [employer] SERVICES MANAGER AND PULMONARY AWAITING BIOPSY AND APPROPRIATE CULTURES.. oFF iv CIPRO 400 MG EVERY 12 HOURLY 11/13/16 - 11/21/16S NOTED pATIENT HAS A RIGHT CHEST TUBE IN PLACE. PULMONARY TOILET. MONITOR RENAL FUNCTIONS CLOSELY. FOLLOW-UP cbc IN A.M./LFTS
[2016-11-25] MEDS: Micafungin 100 MG in Sodium Chloride 0.9% 100 ML IV SCH (21:57)
[2016-11-26] MEDS: Sucralfate 1 gm/10 ml Oral Susp UD PO SCH ×4 (00:19→18:03)
[2016-11-26] MEDS: Albuterol-Ipratrop 3 mg / 0.5 (3 ml) UD INH SCH ×4 (01:19→19:05)
[2016-11-26] MEDS: Phenylephrine 30 MG in Sodium Chloride 0.9% 250 ML IV PRN ×2 (01:45→12:44)
[2016-11-26 05:29] LABS: ABG ALLEN TEST POS; ABG MECHANICAL RATE 20; ARTERIAL BLOOD HGB O2 SAT 88.7 % (95.0-98.0); ATERIAL BLOOD GAS PEEP 12; CARBOXYHEMOGLOBIN 4.7 % (0.5-1.5); DRAW SITE LB; HHB 5.3 % (0.0-5.0); METHEMOGLOBIN 1.3 % (0.0-3.0)
[2016-11-26] MEDS: MethylPREDNISolone 40 mg Vial IV SCH ×3 (05:44→21:29)
[2016-11-26 06:17] LABS: BASO # 0.1 K/uL (0.0-0.2); BASO % 0.3 % (0.0-2.0); HEMATOCRIT 22.2 % (34.0-47.0); LYMPH # 1.1 K/uL (1.0-4.3); LYMPH % 4.5 % (20.0-40.0); MEAN CORPUSCULAR HEMOGLOBIN 29.2 pg (27.0-31.0); MEAN CORPUSCULAR HGB CONC 32.4 g/dL (33.0-37.0); MEAN PLATELET VOLUME 8.8 fL (7.2-11.7); MONO # 0.7 K/uL (0.0-0.8); MONO % 3.1 % (0.0-10.0); NRBC % 0.2 % (0.0-2.0); PLATELET COUNT 238 K/uL (130-400); RED CELL DISTRIBUTION WIDTH 15.2 % (11.5-14.5); WHITE BLOOD COUNT 23.8 K/uL (4.8-10.8)
[2016-11-26 06:32] LABS: CHLORIDE 112 mmol/L (98-107)
[2016-11-26 06:33] LABS: POTASSIUM 3.5 mmol/L (3.6-5.2); SODIUM 154 mmol/L (132-148)
[2016-11-26 06:35] LABS: ALKALINE PHOSPHATASE 52 U/L (38-126); ALT/SGPT 141 U/L (9-52); AST/SGOT 217 U/L (14-36); BILIRUBIN,TOTAL 0.9 mg/dL (0.2-1.3); BLOOD UREA NITROGEN 81 mg/dL (7-17); CARBON DIOXIDE 33 mmol/L (22-30); GFR AFRICAN-AMERICAN > 60; GLUCOSE,RANDOM 162 mg/dL (65-105); TOTAL PROTEIN 4.5 g/dL (6.3-8.3)
[2016-11-26 06:36] LABS: CALCIUM 7.7 mg/dl (8.6-10.4); MAGNESIUM 1.8 mg/dL (1.6-2.3); PHOSPHOROUS 3.7 mg/dL (2.5-4.5)
[2016-11-26 06:42] LABS: ALB/GLOB RATIO 1.4 (1.0-2.1)
[2016-11-26] MEDS ORDERED: Potassium Chloride 20 mEq/15 ml LIQ UD PO ONE (08:00)
[2016-11-26 08:06] LABS: NEUTROPHIL 97 % (50-75); TOTAL CELLS COUNTED 100
[2016-11-26] MEDS: Acyclovir 500 MG in Sodium Chloride 0.9% 100 ML IV SCH ×2 (09:49→18:19)
--- NOTE | 2016-11-26 10:06 | RAD ---
HISTORY: intubation COMPARISON: 11/25/2016 FINDINGS: LUNGS: Lines and tubes in stable position. Persistent diffuse confluent airspace opacifications consolidation throughout both lungs. PLEURA: As above. CARDIOVASCULAR: Normal. OSSEOUS STRUCTURES: No significant abnormalities. VISUALIZED UPPER ABDOMEN: Normal. OTHER FINDINGS: None. IMPRESSION: Lines and tubes in stable position. Persistent diffuse confluent airspace opacifications consolidation throughout both lungs.
[2016-11-26] MEDS: levETIRAcetam 500 MG in Sodium Chloride 0.9% 100 ML IVPB SCH ×2 (11:50→22:27)
--- NOTE | 2016-11-26 11:55 | CP.CCUPN ---
<Mariana Robison - Last Filed: 11/26/16 11:52> CCU Subjective - Physician Review Events Since Last Encounter (Free Text): 11/26/16 11:52 Hypotensive overnight, pressors started Subjective (Free Text): 11/10/16 12:04 Pt S & E this AM. Reports ab pain and SOB improved- on VTM. Had soft unformed BMs x 2 yesterday, 1 liquid stool today with large volume flatus. Denies N/V/F/C, chest pain. 11/11/16 12:38 Pt S & E this AM. Pt reports having 3 liquid stools yesterday, continues to require VTM 2/2 SOB, insomnia. Abdominal pain much improved, abdominal distention much improved. Denies N/V/F/C, chest pain. 11/12/16 14:26 Pt S & E this AM. Pt reports continued SOB, likes being on Bipap 2/2 less work to breathe. Ab pain improved, continues with liquid stools, now has non productive cough. 11/13/16 16:55 Pt S & E this AM. Pt continues w/SOB requiring Bipap overnight, using more Bipap vs. VTM mask, states she had insomnia overnight 2/2 SOB, needing to focus on breathing. Abdominal pain resolved. Had slight nausea yesterday with protein supplement. Had 1 liquid BM yesterday. Denies emesis, fevers, chills, chest pain. 11/16/16 13:44 P S & E this AM. Pt on BiPAP -tolerating it well. Pt admits to epigastric abdominal pain, hunger -asking for food. For OR tomorrow for bronchoscopy and wedge biopsy with Dr. Chan. 11/17/16 12:40 Pt S & E this AM. Pt stable on BiPAP confortable overnight. Continued epigastric pain but tolerating diet intermittently. No BM despite SS enema & colace. For bronchoscopy and wedge biopsy today with Dr. Chan. 11/18/16 18:07 Pt S & E this AM. Pt intubated/sedated, but alert, awake. Gesturing that her abdominal pain has resolved. 11/19/16 12:34 Pt S & E this AM. Pt intubated/sedated, but alert & awake. C/O chest wall pain, asking for sleep medication. 11/20/16 14:57 Pt S & E this AM. Pt intubated/sedated, but alert, awake, no abdominal pain, stable. 11/23/16 11:41 Pt S & E this AM. Pt intubated/sedated, but alert, awake, no complaints, denies abdominal pain. Asking for ET tube to be removed. 11/24/16 12:02 Pt S & E this AM. Pt still intubated/sedated, but alert/awake, gesturing that her mouth is dry, asking if she is going to . Will re-start psych meds for comfort. 11/25/16 12:45 Pt S & E this AM. Pt not arousable to verbal stimuli- pt paler vs. yesterday, w/visualized melenic liquid stool on exam. 11/26/16 11:53 Pt S & E this AM. Pt arousable to tactile stimuli, pt seems more lethargic, not following simple commands. Critical Care Time Spent (in minutes): 60 CCU Objective - Vital Signs / Intake & Output Vital Signs (Last 4 hours): Vital Signs Temp Pulse Resp BP Pulse Ox 11/26/16 10:00 30 L 30 H 108/68 93 L 11/26/16 09:00 124 H 26 H 111/62 93 L 11/26/16 08:00 99.7 F H 122 H 21 108/61 92 L Intake and Output (Last 8hrs): Intake & Output 11/25/16 11/26/16 11/26/16 22:59 06:59 14:59 Intake Total 1624.0 521.6 399.2 Output Total 1240 765 575 Balance 384.0 -243.4 -175.8 Weight 64 kg Intake: Intake, IV Amount 542.0 521.6 399.2 Right Medial Port 100 200 200 Internal Jugular Right Distal Port 24 24 12 Internal Jugular Right Proximal Port 150 110 80 Internal Jugular RT IJ TLC Distal port 2 268.0 187.6 107.2 Blood Product 1082 Apheresis Platelets Acda 400 Lr Unit [id number] Output: Chest Tube Drainage 0 0 Right Mid-Axillary Chest 0 0 Gastric Amount 350 0 Stomach 350 0 Urine 890 765 575 Urethral (Mishra) 890 765 575 - Physical Exam Head: Positive for: Atraumatic, Normocephalic Pupils: Positive for: PERRL Extroacular Muscles: Positive for: EOMI Conjunctiva: Positive for: Normal Ears: Positive for: Normal Mouth: Positive for: Dry, Other (ET & OG tubes in place) Pharnyx: Positive for: Normal Nose (External): Positive for: Atraumatic Neck: Positive for: Normal Range of Motion, Trachea Midline, Other (Right IJ (- ) erythema/drainage) Respiratory/Chest: Positive for: Clear to Auscultation, Good Air Exchange, Decreased Breath Sounds. Negative for: Respiratory Distress, Accessory Muscle Use, Wheezes, Rales, Retracting, Rhonchi Cardiovascular: Positive for: Normal S1, S2, Peripheal Pulses Present, Tachycardic. Negative for: Murmurs, Rub, Gallop Abdomen: Negative for: Tenderness, Distention, Normal Bowel Sounds, Peritoneal Signs, Rebound, Guarding Upper Extremity: Positive for: Normal Inspection. Negative for: Cyanosis, Edema Lower Extremity: Positive for: Normal Inspection. Negative for: Edema Neurological: Positive for: Other (intubated/sedated). Negative for: GCS=15, Speech Normal Skin: Positive for: Warm, Dry, Normal Color, Pale. Negative for: Rashes Psychiatric: Negative for: Alert, Oriented x 3, Normal Insight, Normal Concentration - Medications Active Medications: Active Medications Generic Name Dose Route Start Last Admin Trade Name Freq PRN Reason Stop Dose Admin Albuterol/Ipratropium 3 ml 11/19/16 02:00 11/26/16 07:33 Duoneb 3 Mg/0.5 Mg (3 Ml) Ud INH 3 ml RQ6 BALBINA Administration Aspirin 81 mg 11/07/16 10:00 11/23/16 09:23 Aspirin Chewable PO Not Given DAILY [facility] Clopidogrel Bisulfate 75 mg 11/07/16 10:00 11/23/16 10:33 Plavix PO Not Given DAILY [facility] Enoxaparin Sodium 40 mg 11/07/16 10:00 11/24/16 09:49 Lovenox SC 40 mg DAILY [facility] Administration Fentanyl Citrate 2,500 mcg/ 250 mls @ 70 mls/hr 11/19/16 10:35 11/26/16 03:54 Sodium Chloride IV Not Given .Q3H35M [facility] Protocol 10 MCG/KG/HR Midazolam HCl 100 mg/ Sodium 100 mls @ 1.4 mls/hr 11/20/16 15:00 11/25/16 17:54 Chloride IV 3 mls/hr .Q24H PRN Administration FOLLOW PROTOCOL Protocol 0.02 MG/KG/HR Levetiracetam 500 mg/ Sodium 105 mls @ 420 mls/hr 11/21/16 11:00 11/26/16 11:50 Chloride IVPB 420 mls/hr Q12H [facility] Administration Micafungin Sodium 100 mg/ 100 mls @ 100 mls/hr 11/24/16 22:30 11/25/16 21:57 Sodium Chloride IV 100 mls/hr Q24H [facility] Administration Imipenem/Cilastatin Sodium 500 100 mls @ 100 mls/hr 11/25/16 22:00 11/26/16 05: 19 mg/ Sodium Chloride IVPB 100 mls/hr Q8H [facility] Administration Phenylephrine HCl 30 mg/ 253 mls @ 10.12 mls/hr 11/26/16 01:12 11/26/16 01:45 Sodium Chloride IV 10.12 mls/hr .Q24H PRN Administration TITRATE PER MD ORDER Protocol 20 MCG/MIN Acyclovir 500 mg/ Sodium 100 mls @ 100 mls/hr 11/26/16 12:00 Chloride IV Q8H [facility] Methylprednisolone 60 mg 11/24/16 14:00 11/26/16 05:44 Solu-Medrol IV 60 mg Q8 [facility] Administration Pantoprazole Sodium 40 mg 11/24/16 07:00 11/26/16 06:54 Protonix Inj IVP 40 mg Q12H [facility] Administration Quetiapine Fumarate 25 mg 11/24/16 10:00 11/26/16 09:50 Seroquel PO 25 mg DAILY [facility] Administration Sertraline HCl 25 mg 11/24/16 10:00 11/26/16 09:50 Zoloft PO 25 mg DAILY [facility] Administration Sucralfate 1 gm 11/24/16 07:00 11/26/16 06:50 Carafate Oral Susp PO 1 gm Q6H [facility] Administration - Patient Studies Lab Studies: Microbiology Studies 11/24/16 22:17 Urine Culture - Final Urine,Mishra No Growth (<1,000 CFU/ML) 11/24/16 22:30 Blood Culture - Preliminary Blood-Thru Central Line NO GROWTH AFTER 24 HOURS 11/24/16 23:00 Blood Culture - Preliminary Blood-Thru Central Line NO GROWTH AFTER 24 HOURS Lab Studies 11/26/16 11/26/16 11/25/16 Range/Units 06:11 05:12 15:33 WBC 23.8 H 21.6 H (4.8-10.8) K/uL RBC 2.47 L 3.44 L (3.80-5.20) Mil/uL Hgb 7.2 L D 10.2 L D (11.0-16.0) g/dL Hct 22.2 L 30.7 L (34.0-47.0) % MCV 90.0 89.3 D (81.0-99.0) fL MCH 29.2 29.7 (27.0-31.0) pg MCHC 32.4 L 33.3 (33.0-37.0) g/dL RDW 15.2 H 15.3 H (11.5-14.5) % Plt Count 238 175 (130-400) K/uL MPV 8.8 8.7 (7.2-11.7) fL Neut % (Auto) 92.1 H 90.9 H (50.0-75.0) % Lymph % (Auto) 4.5 L 5.3 L (20.0-40.0) % [place] % (Auto) 3.1 3.8 (0.0-10.0) % Eos % (Auto) 0.0 0.0 (0.0-4.0) % Baso % (Auto) 0.3 0.0 (0.0-2.0) % Neut # 21.9 H 19.6 H (1.8-7.0) K/uL Lymph # 1.1 1.1 (1.0-4.3) K/uL [place] # 0.7 0.8 (0.0-0.8) K/uL Eos # 0.0 0.0 (0.0-0.7) K/uL Baso # 0.1 0.0 (0.0-0.2) K/uL Neutrophils % (Manual) 97 H 93 H (50-75) % Lymphocytes % (Manual) 2 L 5 L (20-40) % Monocytes % (Manual) 1 2 (0-10) % Nucleated RBC % 1 H (0-0) % Platelet Estimate Normal Normal (NORMAL) Polychromasia Slight Hypochromasia (manual) Slight Slight Poikilocytosis (manual Slight Anisocytosis (manual) Slight Slight [place]amond Cells Slight Haptoglobin (43-212) mg/dL Puncture Site Lb pCO2 54 H (35-45) mm/Hg pO2 57 L (80-100) mm/Hg HCO3 32.2 H (21-28) mmol/L ABG pH 7.42 (7.35-7.45) ABG Total CO2 36.7 H (22-28) mmol/L ABG O2 Saturation 94.4 L (95-98) % ABG Base Excess 9.5 H (-2.0-3.0) mmol/L ABG Hemoglobin 7.2 L (11.7-17.4) g/dL ABG Carboxyhemoglobin 4.7 H (0.5-1.5) % POC ABG HHb (Measured) 5.3 H (0.0-5.0) % ABG Methemoglobin 1.3 (0.0-3.0) % Reese Test Pos A-a O2 Difference 375.0 mm/Hg Respiratory Index 6.6 Hgb O2 Saturation 88.7 L (95.0-98.0) % Mechanical Rate 20 FiO2 70.0 % Tidal Volume 400 PEEP 12 Sodium 154 H (132-148) mmol/L Potassium 3.5 L (3.6-5.2) mmol/L Chloride 112 H (98-107) mmol/L Carbon Dioxide 33 H (22-30) mmol/L Anion Gap 13 (10-20) BUN 81 H (7-17) mg/dL Creatinine 1.1 (0.7-1.2) MG/DL Est GFR ( Amer) > 60 Est GFR (Non-Af Amer) 53 Random Glucose 162 H (65-105) mg/dL Calcium 7.7 L (8.6-10.4) mg/dl Phosphorus 3.7 (2.5-4.5) mg/dL Magnesium 1.8 (1.6-2.3) mg/dL Total Bilirubin 0.9 (0.2-1.3) mg/dL AST 217 H D (14-36) U/L ALT 141 H D (9-52) U/L Alkaline Phosphatase 52 (38-126) U/L Total Protein 4.5 L (6.3-8.3) g/dL Albumin 2.6 L D (3.5-5.0) g/dL Globulin 1.9 L (2.2-3.9) gm/dL Albumin/Globulin Ratio 1.4 (1.0-2.1) Procalcitonin 0.89 H (0.19-0.49) NG/ML Blood Type Antibody Screen 11/25/16 11/23/16 Range/Units 07:45 12:30 WBC (4.8-10.8) K/uL RBC (3.80-5.20) Mil/uL Hgb (11.0-16.0) g/dL Hct (34.0-47.0) % MCV (81.0-99.0) fL MCH (27.0-31.0) pg MCHC (33.0-37.0) g/dL RDW (11.5-14.5) % Plt Count (130-400) K/uL MPV (7.2-11.7) fL Neut % (Auto) (50.0-75.0) % Lymph % (Auto) (20.0-40.0) % [place] % (Auto) (0.0-10.0) % Eos % (Auto) (0.0-4.0) % Baso % (Auto) (0.0-2.0) % Neut # (1.8-7.0) K/uL Lymph # (1.0-4.3) K/uL [place] # (0.0-0.8) K/uL Eos # (0.0-0.7) K/uL Baso # (0.0-0.2) K/uL Neutrophils % (Manual) (50-75) % Lymphocytes % (Manual) (20-40) % Monocytes % (Manual) (0-10) % Nucleated RBC % (0-0) % Platelet Estimate (NORMAL) Polychromasia Hypochromasia (manual) Poikilocytosis (manual Anisocytosis (manual) Rosamond Cells Haptoglobin 118 (43-212) mg/dL Puncture Site pCO2 (35-45) mm/Hg pO2 (80-100) mm/Hg HCO3 (21-28) mmol/L ABG pH (7.35-7.45) ABG Total CO2 (22-28) mmol/L ABG O2 Saturation (95-98) % ABG Base Excess (-2.0-3.0) mmol/L ABG Hemoglobin (11.7-17.4) g/dL ABG Carboxyhemoglobin (0.5-1.5) % POC ABG HHb (Measured) (0.0-5.0) % ABG Methemoglobin (0.0-3.0) % Reese Test A-a O2 Difference mm/Hg Respiratory Index Hgb O2 Saturation (95.0-98.0) % Mechanical Rate FiO2 % Tidal Volume PEEP Sodium (132-148) mmol/L Potassium (3.6-5.2) mmol/L Chloride (98-107) mmol/L Carbon Dioxide (22-30) mmol/L Anion Gap (10-20) BUN (7-17) mg/dL Creatinine (0.7-1.2) MG/DL Est GFR ( Amer) Est GFR (Non-Af Amer) Random Glucose (65-105) mg/dL Calcium (8.6-10.4) mg/dl Phosphorus (2.5-4.5) mg/dL Magnesium (1.6-2.3) mg/dL Total Bilirubin (0.2-1.3) mg/dL AST (14-36) U/L ALT (9-52) U/L Alkaline Phosphatase (38-126) U/L Total Protein (6.3-8.3) g/dL Albumin (3.5-5.0) g/dL Globulin (2.2-3.9) gm/dL Albumin/Globulin Ratio (1.0-2.1) Procalcitonin (0.19-0.49) NG/ML Blood Type AB POSITIVE Antibody Screen Negative Laboratory Results - last 24 hr 11/23/16 11/25/16 11/25/16 12:30 07:45 15:33 WBC 21.6 H RBC 3.44 L Hgb 10.2 L D Hct 30.7 L MCV 89.3 D MCH 29.7 MCHC 33.3 RDW 15.3 H Plt Count 175 MPV 8.7 Neut % (Auto) 90.9 H Lymph % (Auto) 5.3 L [place] % (Auto) 3.8 Eos % (Auto) 0.0 Baso % (Auto) 0.0 Neut # 19.6 H Lymph # 1.1 [place] # 0.8 Eos # 0.0 Baso # 0.0 Neutrophils % (Manual) 93 H Lymphocytes % (Manual) 5 L Monocytes % (Manual) 2 Nucleated RBC % 1 H Platelet Estimate Normal Polychromasia Hypochromasia (manual) Slight Poikilocytosis (manual Slight Anisocytosis (manual) Slight [place] Cells Slight Haptoglobin 118 Puncture Site pCO2 pO2 HCO3 ABG pH ABG Total CO2 ABG O2 Saturation ABG Base Excess ABG Hemoglobin ABG Carboxyhemoglobin POC ABG HHb (Measured) ABG Methemoglobin Reese Test A-a O2 Difference Respiratory Index Hgb O2 Saturation Mechanical Rate FiO2 Tidal Volume PEEP Sodium Potassium Chloride Carbon Dioxide Anion Gap BUN Creatinine Est GFR ( Amer) Est GFR (Non-Af Amer) Random Glucose Calcium Phosphorus Magnesium Total Bilirubin AST ALT Alkaline Phosphatase Total Protein Albumin Globulin Albumin/Globulin Ratio Procalcitonin 0.89 H Blood Type AB POSITIVE Antibody Screen Negative 11/26/16 11/26/16 05:12 06:11 WBC 23.8 H RBC 2.47 L Hgb 7.2 L D Hct 22.2 L MCV 90.0 MCH 29.2 MCHC 32.4 L RDW 15.2 H Plt Count 238 MPV 8.8 Neut % (Auto) 92.1 H Lymph % (Auto) 4.5 L [place] % (Auto) 3.1 Eos % (Auto) 0.0 Baso % (Auto) 0.3 Neut # 21.9 H Lymph # 1.1 [place] # 0.7 Eos # 0.0 Baso # 0.1 Neutrophils % (Manual) 97 H Lymphocytes % (Manual) 2 L Monocytes % (Manual) 1 Nucleated RBC % Platelet Estimate Normal Polychromasia Slight Hypochromasia (manual) Slight Poikilocytosis (manual Anisocytosis (manual) Slight Nelson Cells Haptoglobin Puncture Site Lb pCO2 54 H pO2 57 L HCO3 32.2 H ABG pH 7.42 ABG Total CO2 36.7 H ABG O2 Saturation 94.4 L ABG Base Excess 9.5 H ABG Hemoglobin 7.2 L ABG Carboxyhemoglobin 4.7 H POC ABG HHb (Measured) 5.3 H ABG Methemoglobin 1.3 Reese Test Pos A-a O2 Difference 375.0 Respiratory Index 6.6 Hgb O2 Saturation 88.7 L Mechanical Rate 20 FiO2 70.0 Tidal Volume 400 PEEP 12 Sodium 154 H Potassium 3.5 L Chloride 112 H Carbon Dioxide 33 H Anion Gap 13 BUN 81 H Creatinine 1.1 Est GFR ( Amer) > 60 Est GFR (Non-Af Amer) 53 Random Glucose 162 H Calcium 7.7 L Phosphorus 3.7 Magnesium 1.8 Total Bilirubin 0.9 AST 217 H D ALT 141 H D Alkaline Phosphatase 52 Total Protein 4.5 L Albumin 2.6 L D Globulin 1.9 L Albumin/Globulin Ratio 1.4 Procalcitonin Blood Type Antibody Screen Review of Systems - Review of Systems Systems not reviewed;Unavailable: Intubated Critical Care Progress Note - Ventilator Checklist Head of Bed 30 Degrees: Yes Daily Sedation Vacation: Yes Daily Assessment of Readiness to Learn: Yes Daily Spontaneous Breathing Trial: Yes PUD Prophalyxis: Yes DVT Prophylaxis: Yes Oral Care with Chlorhexidine Gluconate {CHG}: Yes - Vent Settings MODE:: PRVC TIDAL VOLUME:: 400 RESP RATE:: 20 FIO2:: 70 PEEP:: 12 - Extremities/Vascular Does the Patient have a Central Venous Catheter?: Yes Insertion Site: Internal Jugular Vein Does the Patient need a Central Venous Catheter?: Yes (pressors) Does the Patient have a Mishra Catheter?: Yes Does the Patient need a Mishra Catheter?: Yes Catheter Insertion Criteria: Need for accurate measurement of output in critically ill patient - Prophylaxis GI Prophylaxis GI: PPI - Prophylaxis DVT Prophylaxis DVT: SCDs, Not Indicated (contraindications) Assessment/Plan - Assessment and Plan (Free Text) Assessment: 51F POD#8 s/p RLL wedge resection, intubated/sedated, requiring high pulmonary support measures on [facility] vent, desaturates when support is decreased. Pt w/ melena x 3 yesterday, given 3 pRBCS, 1 unit platelets. Pt w/fevers yesterday, worsening kidney function. EGD neg per GI. No plans for C-scope. Will transfuse another unit of pRBCs, pallative care consult. Plan: Neuro Sedated- Fentanyl drip, Propofol drip, Versed drip Cont home meds: Zoloft, Keppra Seroquel Seizure precautions Monitor CVS Hypotensive tachycardiac Phenylephrine ASA - held Plavix - held Monitor Pulm Organizing PNA POD#8 s/p RLL wedge resection ABG pH 7.42 O2 57, CO2 54, HCO3 32.2 Intubated ON [facility] vent protective lung protocol Duonebs Solu-medrol CXR - Hazy opacity in the right lung again seen.No sig pleural effusion, no pneumothorax. Monitor Pulm following Nephro Hypernatremia- Na 154 Hypokalemia- K 3.5 Replaced Mg 1.8 Supplemented Hyperphosphatemia- PHos 7.7 Monitor GI No melena overnight OGT in place Tube feeds held 2/2 to gastric distention on CXR Sulcrafate Gen surg following- SBO mgmt as per surgery GI consulted- EGD neg for bleed, pos for gastritis- hold anticoagulation, no need for Protonix drip, will d/c and restart protonix BID Mishra in place MOnitor UOP Heme Acute anemia 2/2 GI bleed s/p 3 units pRBCs, 1 unit platelets Hgb 7.2 from 10.2 Hct 22.2 from 30.7 Type & Screen Ordered [address] w/scant amount of serosanguinous output Endo Sugars WNL Monitor MSK Monitor for skin break down ID Leukocytosis 23.8 from 21.6 Acyclovir- dose adjusted Micafungin Pirmaxin Febrile over last 24H, Tmax 101.1 Tylenol PRN ID following GI/DVT ppx Protonix SCDs Lovenox d/c'd 2/2 GI bleed Contraindications to DVT ppx Dispo: Cont ICU care On [facility] vent Type and screen Transfuse 1 unit pRBCS Pallative care consult Monitor DW attending - Date & Time Date: 11/26/16 Time: 07:00 <Wendy Michael - Last Filed: 11/26/16 17:07> CCU Objective - Vital Signs / Intake & Output Vital Signs (Last 4 hours): Vital Signs Temp Pulse Resp BP Pulse Ox 11/26/16 16:23 98.9 F 75 19 94/56 L 11/26/16 16:00 9.8 F L 79 15 99/59 L 100 11/26/16 15:55 99.0 F 86 19 99/59 L 11/26/16 15:25 99.8 F H 90 17 92/56 L 11/26/16 15:00 100.5 F H 94 H 19 98/64 L 100 11/26/16 14:55 100.5 F H 100 H 17 97/59 L 11/26/16 14:20 101.3 F H 118 H 16 94/49 L 11/26/16 14:05 101.2 F H 116 H 16 102/48 L 11/26/16 14:00 101.2 F H 116 H 19 85/52 L 99 11/26/16 13:45 101 F H 109 H 17 102/48 L 11/26/16 13:00 110 H 19 102/48 L 97 Intake and Output (Last 8hrs): Intake & Output 11/26/16 11/26/16 11/26/16 06:59 14:59 22:59 Intake Total 521.6 1018.4 676.6 Output Total 765 1175 180 Balance -243.4 -156.6 496.6 Weight 141 lb 1.533 oz Intake: Intake, IV Amount 521.6 893.4 101.6 Right Medial Port 200 500 Internal Jugular Right Distal Port 24 29 8 Internal Jugular Right Proximal Port 110 150 40 Internal Jugular RT IJ TLC Distal port 2 187.6 214.4 53.6 Blood Product 125 575 Red Blood Cells Cpd As1 0 325 Lr Unit [id number] Output: Chest Tube Drainage 0 0 Right Mid-Axillary Chest 0 0 Gastric Amount 0 Stomach 0 Urine 765 1175 180 Urethral (Mishra) 765 1175 180 - Medications Active Medications: Active Medications Generic Name Dose Route Start Last Admin Trade Name Freq PRN Reason Stop Dose Admin Albuterol/Ipratropium 3 ml 11/19/16 02:00 11/26/16 13:19 Duoneb 3 Mg/0.5 Mg (3 Ml) Ud INH 3 ml RQ6 [place]INA Administration Aspirin 81 mg 11/07/16 10:00 11/23/16 09:23 Aspirin Chewable PO Not Given DAILY [facility] Clopidogrel Bisulfate 75 mg 11/07/16 10:00 11/23/16 10:33 Plavix PO Not Given DAILY [facility] Enoxaparin Sodium 40 mg 11/07/16 10:00 11/24/16 09:49 Lovenox SC 40 mg DAILY [facility] Administration Fentanyl Citrate 2,500 mcg/ 250 mls @ 70 mls/hr 11/19/16 10:35 02/09/17 12:43 Sodium Chloride IV 28 mls/hr .Q3H35M [facility] Administration Protocol 10 MCG/KG/HR Midazolam HCl 100 mg/ Sodium 100 mls @ 1.4 mls/hr 11/20/16 15:00 11/25/16 17:54 Chloride IV 3 mls/hr .Q24H PRN Administration FOLLOW PROTOCOL Protocol 0.02 MG/KG/HR Levetiracetam 500 mg/ Sodium 105 mls @ 420 mls/hr 11/21/16 11:00 11/26/16 11:50 Chloride IVPB 420 mls/hr Q12H [facility] Administration Imipenem/Cilastatin Sodium 500 100 mls @ 100 mls/hr 11/25/16 22:00 11/26/16 13: 16 mg/ Sodium Chloride IVPB 100 mls/hr Q8H [facility] Administration Phenylephrine HCl 30 mg/ 253 mls @ 10.12 mls/hr 11/26/16 01:12 11/26/16 12:44 Sodium Chloride IV 15 mls/hr .Q24H PRN Administration TITRATE PER MD ORDER Protocol 20 MCG/MIN Acyclovir 500 mg/ Sodium 100 mls @ 100 mls/hr 11/26/16 18:00 Chloride IV Q8H [facility] Methylprednisolone 60 mg 11/24/16 14:00 11/26/16 13:18 Solu-Medrol IV 60 mg Q8 [facility] Administration Pantoprazole Sodium 40 mg 11/24/16 07:00 11/26/16 06:54 Protonix Inj IVP 40 mg Q12H [facility] Administration Sucralfate 1 gm 11/24/16 07:00 11/26/16 12:39 Carafate Oral Susp PO 1 gm Q6H [facility] Administration - Patient Studies Lab Studies: Microbiology Studies 11/24/16 22:17 Urine Culture - Final Urine,Mishra No Growth (<1,000 CFU/ML) 11/24/16 22:30 Blood Culture - Preliminary Blood-Thru Central Line NO GROWTH AFTER 24 HOURS 11/24/16 23:00 Blood Culture - Preliminary Blood-Thru Central Line NO GROWTH AFTER 24 HOURS Lab Studies 11/26/16 11/26/16 11/26/16 Range/Units 12:17 12:14 06:11 WBC 23.8 H (4.8-10.8) K/uL RBC 2.47 L (3.80-5.20) Mil/uL Hgb 7.2 L D (11.0-16.0) g/dL Hct 22.2 L (34.0-47.0) % MCV 90.0 (81.0-99.0) fL MCH 29.2 (27.0-31.0) pg MCHC 32.4 L (33.0-37.0) g/dL RDW 15.2 H (11.5-14.5) % Plt Count 238 (130-400) K/uL MPV 8.8 (7.2-11.7) fL Neut % (Auto) 92.1 H (50.0-75.0) % Lymph % (Auto) 4.5 L (20.0-40.0) % [place] % (Auto) 3.1 (0.0-10.0) % Eos % (Auto) 0.0 (0.0-4.0) % Baso % (Auto) 0.3 (0.0-2.0) % Neut # 21.9 H (1.8-7.0) K/uL Lymph # 1.1 (1.0-4.3) K/uL [place] # 0.7 (0.0-0.8) K/uL Eos # 0.0 (0.0-0.7) K/uL Baso # 0.1 (0.0-0.2) K/uL Neutrophils % (Manual) 97 H (50-75) % Lymphocytes % (Manual) 2 L (20-40) % Monocytes % (Manual) 1 (0-10) % Platelet Estimate Normal (NORMAL) Polychromasia Slight Hypochromasia (manual) Slight Anisocytosis (manual) Slight Haptoglobin (43-212) mg/dL PT 15.0 H (9.7-12.2) SECONDS INR 1.3 APTT 28 (21-34) SECONDS Puncture Site pCO2 (35-45) mm/Hg pO2 (80-100) mm/Hg HCO3 (21-28) mmol/L ABG pH (7.35-7.45) ABG Total CO2 (22-28) mmol/L ABG O2 Saturation (95-98) % ABG Base Excess (-2.0-3.0) mmol/L ABG Hemoglobin (11.7-17.4) g/dL ABG Carboxyhemoglobin (0.5-1.5) % POC ABG HHb (Measured) (0.0-5.0) % ABG Methemoglobin (0.0-3.0) % Reese Test A-a O2 Difference mm/Hg Respiratory Index Hgb O2 Saturation (95.0-98.0) % Mechanical Rate FiO2 % Tidal Volume PEEP Sodium 154 H (132-148) mmol/L Potassium 3.5 L (3.6-5.2) mmol/L Chloride 112 H (98-107) mmol/L Carbon Dioxide 33 H (22-30) mmol/L Anion Gap 13 (10-20) BUN 81 H (7-17) mg/dL Creatinine 1.1 (0.7-1.2) MG/DL Est GFR ( Amer) > 60 Est GFR (Non-Af Amer) 53 Random Glucose 162 H (65-105) mg/dL Calcium 7.7 L (8.6-10.4) mg/dl Phosphorus 3.7 (2.5-4.5) mg/dL Magnesium 1.8 (1.6-2.3) mg/dL Total Bilirubin 0.9 (0.2-1.3) mg/dL AST 217 H D (14-36) U/L ALT 141 H D (9-52) U/L Alkaline Phosphatase 52 (38-126) U/L Total Protein 4.5 L (6.3-8.3) g/dL Albumin 2.6 L D (3.5-5.0) g/dL Globulin 1.9 L (2.2-3.9) gm/dL Albumin/Globulin Ratio 1.4 (1.0-2.1) Procalcitonin (0.19-0.49) NG/ML Blood Type AB POSITIVE Antibody Screen Negative 11/26/16 11/25/16 11/25/16 Range/Units 05:12 15:33 07:45 WBC (4.8-10.8) K/uL RBC (3.80-5.20) Mil/uL Hgb (11.0-16.0) g/dL Hct (34.0-47.0) % MCV (81.0-99.0) fL MCH (27.0-31.0) pg MCHC (33.0-37.0) g/dL RDW (11.5-14.5) % Plt Count (130-400) K/uL MPV (7.2-11.7) fL Neut % (Auto) (50.0-75.0) % Lymph % (Auto) (20.0-40.0) % [place] % (Auto) (0.0-10.0) % Eos % (Auto) (0.0-4.0) % Baso % (Auto) (0.0-2.0) % Neut # (1.8-7.0) K/uL Lymph # (1.0-4.3) K/uL [place] # (0.0-0.8) K/uL Eos # (0.0-0.7) K/uL Baso # (0.0-0.2) K/uL Neutrophils % (Manual) (50-75) % Lymphocytes % (Manual) (20-40) % Monocytes % (Manual) (0-10) % Platelet Estimate (NORMAL) Polychromasia Hypochromasia (manual) Anisocytosis (manual) Haptoglobin 118 (43-212) mg/dL PT (9.7-12.2) SECONDS INR APTT (21-34) SECONDS Puncture Site Lb pCO2 54 H (35-45) mm/Hg pO2 57 L (80-100) mm/Hg HCO3 32.2 H (21-28) mmol/L ABG pH 7.42 (7.35-7.45) ABG Total CO2 36.7 H (22-28) mmol/L ABG O2 Saturation 94.4 L (95-98) % ABG Base Excess 9.5 H (-2.0-3.0) mmol/L ABG Hemoglobin 7.2 L (11.7-17.4) g/dL ABG Carboxyhemoglobin 4.7 H (0.5-1.5) % POC ABG HHb (Measured) 5.3 H (0.0-5.0) % ABG Methemoglobin 1.3 (0.0-3.0) % Reese Test Pos A-a O2 Difference 375.0 mm/Hg Respiratory Index 6.6 Hgb O2 Saturation 88.7 L (95.0-98.0) % Mechanical Rate 20 FiO2 70.0 % Tidal Volume 400 PEEP 12 Sodium (132-148) mmol/L Potassium (3.6-5.2) mmol/L Chloride (98-107) mmol/L Carbon Dioxide (22-30) mmol/L Anion Gap (10-20) BUN (7-17) mg/dL Creatinine (0.7-1.2) MG/DL Est GFR ( Amer) Est GFR (Non-Af Amer) Random Glucose (65-105) mg/dL Calcium (8.6-10.4) mg/dl Phosphorus (2.5-4.5) mg/dL Magnesium (1.6-2.3) mg/dL Total Bilirubin (0.2-1.3) mg/dL AST (14-36) U/L ALT (9-52) U/L Alkaline Phosphatase (38-126) U/L Total Protein (6.3-8.3) g/dL Albumin (3.5-5.0) g/dL Globulin (2.2-3.9) gm/dL Albumin/Globulin Ratio (1.0-2.1) Procalcitonin 0.89 H (0.19-0.49) NG/ML Blood Type Antibody Screen Laboratory Results - last 24 hr 11/25/16 11/25/16 11/26/16 07:45 15:33 05:12 WBC RBC Hgb Hct MCV MCH MCHC RDW Plt Count MPV Neut % (Auto) Lymph % (Auto) [place] % (Auto) Eos % (Auto) Baso % (Auto) Neut # Lymph # [place] # Eos # Baso # Neutrophils % (Manual) Lymphocytes % (Manual) Monocytes % (Manual) Platelet Estimate Polychromasia Hypochromasia (manual) Anisocytosis (manual) Haptoglobin 118 PT INR APTT Puncture Site Lb pCO2 54 H pO2 57 L HCO3 32.2 H ABG pH 7.42 ABG Total CO2 36.7 H ABG O2 Saturation 94.4 L ABG Base Excess 9.5 H ABG Hemoglobin 7.2 L ABG Carboxyhemoglobin 4.7 H POC ABG HHb (Measured) 5.3 H ABG Methemoglobin 1.3 Reese Test Pos A-a O2 Difference 375.0 Respiratory Index 6.6 Hgb O2 Saturation 88.7 L Mechanical Rate 20 FiO2 70.0 Tidal Volume 400 PEEP 12 Sodium Potassium Chloride Carbon Dioxide Anion Gap BUN Creatinine Est GFR ( Amer) Est GFR (Non-Af Amer) Random Glucose Calcium Phosphorus Magnesium Total Bilirubin AST ALT Alkaline Phosphatase Total Protein Albumin Globulin Albumin/Globulin Ratio Procalcitonin 0.89 H Blood Type Antibody Screen 11/26/16 11/26/16 11/26/16 06:11 12:14 12:17 WBC 23.8 H RBC 2.47 L Hgb 7.2 L D Hct 22.2 L MCV 90.0 MCH 29.2 MCHC 32.4 L RDW 15.2 H Plt Count 238 MPV 8.8 Neut % (Auto) 92.1 H Lymph % (Auto) 4.5 L [place] % (Auto) 3.1 Eos % (Auto) 0.0 Baso % (Auto) 0.3 Neut # 21.9 H Lymph # 1.1 [place] # 0.7 Eos # 0.0 Baso # 0.1 Neutrophils % (Manual) 97 H Lymphocytes % (Manual) 2 L Monocytes % (Manual) 1 Platelet Estimate Normal Polychromasia Slight Hypochromasia (manual) Slight Anisocytosis (manual) Slight Haptoglobin PT 15.0 H INR 1.3 APTT 28 Puncture Site pCO2 pO2 HCO3 ABG pH ABG Total CO2 ABG O2 Saturation ABG Base Excess ABG Hemoglobin ABG Carboxyhemoglobin POC ABG HHb (Measured) ABG Methemoglobin Reese Test A-a O2 Difference Respiratory Index Hgb O2 Saturation Mechanical Rate FiO2 Tidal Volume PEEP Sodium 154 H Potassium 3.5 L Chloride 112 H Carbon Dioxide 33 H Anion Gap 13 BUN 81 H Creatinine 1.1 Est GFR ( Amer) > 60 Est GFR (Non-Af Amer) 53 Random Glucose 162 H Calcium 7.7 L Phosphorus 3.7 Magnesium 1.8 Total Bilirubin 0.9 AST 217 H D ALT 141 H D Alkaline Phosphatase 52 Total Protein 4.5 L Albumin 2.6 L D Globulin 1.9 L Albumin/Globulin Ratio 1.4 Procalcitonin Blood Type AB POSITIVE Antibody Screen Negative Attending/Attestation - Attestation I have personally seen and examined this patient.: Yes I have fully participated in the care of the patient.: Yes I have reviewed all pertinent clinical information: Yes Notes (Text): 11/26/16 16:44 patient seen and examined in the morning, doing poorly. Had and episode of bright red blood per rectum yesterday, transfused with 3 Units of blood and one of platelets given the recent use of plavix ( discontinued only on Wednesday, has been 3 days off it). Since she is still on 40 mcg/mn of neosynephrine will transfuse 2 more units of blood. does not tolerate reduction of FiO2, now encephalopathic, with worsening renal function (triple since admission) and increasing LFT's. Multiple organ disfunction, will call son and will update, Vinnie, [phone]
[2016-11-26] MEDS ORDERED: Acyclovir 500 MG in Sodium Chloride 0.9% 100 ML IV SCH (12:00)
--- NOTE | 2016-11-26 12:31 | CP.PCM.PN ---
Subjective - Date & Time of Evaluation Date of Evaluation: 11/26/16 Time of Evaluation: 07:30 - Subjective Subjective: Surgery: Dr. Chan/Dr. Caraballo Pt seen and examined. No acute overnight events. Continues to be intubated in the ICU. Pt underwent EGD yesterday for work up of GI bleed 2/2 melenic stools, which was negative. Pt is alert and awake this morning. Able to respond to verbal commands. Had several episodes of fevers yesterday through out the day however no fevers recorded overnight. Objective - Vital Signs/Intake and Output Vital Signs (last 24 hours): Temp Pulse Resp BP Pulse Ox 99.7 F H 111 H 16 109/60 98 11/26/16 08:00 11/26/16 12:00 11/26/16 12:00 11/26/16 11:00 11/26/16 12:00 Intake and Output: 11/26/16 11/26/16 06:59 18:59 Intake Total 949.6 591.8 Output Total 1210 925 Balance -260.4 -333.2 - Medications Medications: Current Medications Albuterol/Ipratropium (Duoneb 3 Mg/0.5 Mg (3 Ml) Ud) 3 ml INH RQ6 [facility] Last Admin: 11/26/16 07:33 Dose: 3 ml Aspirin (Aspirin Chewable) 81 mg PO DAILY [facility] Last Admin: 11/23/16 09:23 Dose: Not Given Clopidogrel Bisulfate (Plavix) 75 mg PO DAILY [facility] Last Admin: 11/23/16 10:33 Dose: Not Given Enoxaparin Sodium (Lovenox) 40 mg SC DAILY [facility] Last Admin: 11/24/16 09:49 Dose: 40 mg Fentanyl Citrate 2,500 mcg/ (Sodium Chloride) 250 mls @ 70 mls/hr IV .Q3H35M [place]; 10 MCG/KG/HR PRN Reason: Protocol Last Admin: 11/26/16 12:20 Dose: Not Given Midazolam HCl 100 mg/ Sodium (Chloride) 100 mls @ 1.4 mls/hr IV .Q24H PRN; Protocol; 0.02 MG/KG/HR PRN Reason: FOLLOW PROTOCOL Last Admin: 11/25/16 17:54 Dose: 3 mls/hr Levetiracetam 500 mg/ Sodium (Chloride) 105 mls @ 420 mls/hr IVPB Q12H [facility] Last Admin: 11/26/16 11:50 Dose: 420 mls/hr Micafungin Sodium 100 mg/ (Sodium Chloride) 100 mls @ 100 mls/hr IV Q24H [facility] Last Admin: 11/25/16 21:57 Dose: 100 mls/hr Imipenem/Cilastatin Sodium 500 (mg/ Sodium Chloride) 100 mls @ 100 mls/hr IVPB Q8H [facility] Last Admin: 11/26/16 05:19 Dose: 100 mls/hr Phenylephrine HCl 30 mg/ (Sodium Chloride) 253 mls @ 10.12 mls/hr IV .Q24H PRN ; Protocol; 20 MCG/MIN PRN Reason: TITRATE PER MD ORDER Last Titration: 11/26/16 10:00 Dose: 29.64 mcg/min Acyclovir 500 mg/ Sodium (Chloride) 100 mls @ 100 mls/hr IV Q8H [facility] Methylprednisolone (Solu-Medrol) 60 mg IV Q8 [facility] Last Admin: 11/26/16 05:44 Dose: 60 mg Pantoprazole Sodium (Protonix Inj) 40 mg IVP Q12H [facility] Last Admin: 11/26/16 06:54 Dose: 40 mg Sucralfate (Carafate Oral Susp) 1 gm PO Q6H [facility] Last Admin: 11/26/16 06:50 Dose: 1 gm - Labs Labs: 11/26/16 06:11 11/26/16 06:11 PT 19.4 SECONDS (9.7-12.2) H 11/25/16 08:43 INR 1.7 11/25/16 08:43 APTT 28 SECONDS (21-34) 11/25/16 08:43 - Constitutional Appears: No Acute Distress - ENT Exam Additional comments: ETT in place - Respiratory Exam Respiratory Exam: NORMAL BREATHING PATTERN Additional comments: mechanical ventilation, CT in place on R on suction - Cardiovascular Exam Cardiovascular Exam: Tachycardia - GI/Abdominal Exam GI & Abdominal Exam: Soft, Tenderness (RUQ/epigastric region ). absent: Distended, Firm, Rebound - Extremities Exam Extremities Exam: absent: Tenderness - Neurological Exam Neurological Exam: Alert, Awake - Skin Skin Exam: Dry, Warm Assessment and Plan - Assessment and Plan (Free Text) Assessment: 51F with pulmonary fibrosis s/p R VATS with wedge resection & CT placement; POD# 9 & abdominal pain with GI bleed work up Plan: - Keep CT on sxn while on the vent - Monitor output - EGD negative for bleeding, poss colonoscopy? f/u GI recs - Poss abdomen CT with PO contrast through OGT if pt stable to tolerate - d/w Dr. Chan & Dr. Ilya Reina, PGY-2 Surgery
[2016-11-26 12:44] LABS: INR 1.3
--- NOTE | 2016-11-26 14:28 | CP.PCM.PN ---
Subjective - Date & Time of Evaluation Date of Evaluation: 11/26/16 Time of Evaluation: 14:26 - Subjective Subjective: F/U anemia. No report of bleeding. Intubated. No report of hematemesis, hemoptysis, hematuria, SZ, tremor, rash. Objective - Vital Signs/Intake and Output Vital Signs (last 24 hours): Temp Pulse Resp BP Pulse Ox 101.2 F H 116 H 16 102/48 L 99 11/26/16 14:05 11/26/16 14:05 11/26/16 14:05 11/26/16 14:05 11/26/16 14:00 Intake and Output: 11/26/16 11/26/16 06:59 18:59 Intake Total 949.6 918.4 Output Total 1210 1175 Balance -260.4 -256.6 - Medications Medications: Current Medications Albuterol/Ipratropium (Duoneb 3 Mg/0.5 Mg (3 Ml) Ud) 3 ml INH RQ6 [facility] Last Admin: 11/26/16 13:19 Dose: 3 ml Aspirin (Aspirin Chewable) 81 mg PO DAILY [facility] Last Admin: 11/23/16 09:23 Dose: Not Given Clopidogrel Bisulfate (Plavix) 75 mg PO DAILY [facility] Last Admin: 11/23/16 10:33 Dose: Not Given Enoxaparin Sodium (Lovenox) 40 mg SC DAILY [facility] Last Admin: 11/24/16 09:49 Dose: 40 mg Fentanyl Citrate 2,500 mcg/ (Sodium Chloride) 250 mls @ 70 mls/hr IV .Q3H35M [place]; 10 MCG/KG/HR PRN Reason: Protocol Last Admin: 11/26/16 12:43 Dose: 28 mls/hr Midazolam HCl 100 mg/ Sodium (Chloride) 100 mls @ 1.4 mls/hr IV .Q24H PRN; Protocol; 0.02 MG/KG/HR PRN Reason: FOLLOW PROTOCOL Last Admin: 11/25/16 17:54 Dose: 3 mls/hr Levetiracetam 500 mg/ Sodium (Chloride) 105 mls @ 420 mls/hr IVPB Q12H [facility] Last Admin: 11/26/16 11:50 Dose: 420 mls/hr Micafungin Sodium 100 mg/ (Sodium Chloride) 100 mls @ 100 mls/hr IV Q24H [facility] Last Admin: 11/25/16 21:57 Dose: 100 mls/hr Imipenem/Cilastatin Sodium 500 (mg/ Sodium Chloride) 100 mls @ 100 mls/hr IVPB Q8H [facility] Last Admin: 11/26/16 13:16 Dose: 100 mls/hr Phenylephrine HCl 30 mg/ (Sodium Chloride) 253 mls @ 10.12 mls/hr IV .Q24H PRN ; Protocol; 20 MCG/MIN PRN Reason: TITRATE PER MD ORDER Last Admin: 11/26/16 12:44 Dose: 15 mls/hr Acyclovir 500 mg/ Sodium (Chloride) 100 mls @ 100 mls/hr IV Q8H [facility] Methylprednisolone (Solu-Medrol) 60 mg IV Q8 [facility] Last Admin: 11/26/16 13:18 Dose: 60 mg Pantoprazole Sodium (Protonix Inj) 40 mg IVP Q12H [facility] Last Admin: 11/26/16 06:54 Dose: 40 mg Sucralfate (Carafate Oral Susp) 1 gm PO Q6H [facility] Last Admin: 11/26/16 12:39 Dose: 1 gm - Labs Labs: 11/26/16 06:11 11/26/16 06:11 PT 15.0 SECONDS (9.7-12.2) H 11/26/16 12:14 INR 1.3 11/26/16 12:14 APTT 28 SECONDS (21-34) 11/26/16 12:14 - Constitutional Appears: Chronically Ill - Respiratory Exam Respiratory Exam: Rhonchi - Cardiovascular Exam Cardiovascular Exam: RRR - GI/Abdominal Exam GI & Abdominal Exam: absent: Rigid Additional comments: BSs present - Extremities Exam Extremities Exam: Pedal Edema - Neurological Exam Additional comments: responds to stimuli Assessment and Plan (1) Acute respiratory failure with hypoxia Assessment & Plan: intubated Status: Acute (2) Small bowel obstruction Assessment & Plan: last KUB was 11/08 Status: Acute (3) MARISELA (acute kidney injury) Assessment & Plan: Cr better. BUN elevated Status: Acute (4) Anemia Assessment & Plan: EGD shows no source of GI bleeding. No melena and no RB, and no hematemesis. Dr. Rodriguez ICU Attending asked me about the dropping Hb from 10 to 7. I explained that the Hb of 10 likely represents a wrong value as the patient was transfused 3 units from a Hb of 4. Dr Rodriguez also asked me about colonoscopy. I explained that I do not feel that the patient is stable for colonoscopy and would not be able to prep patient for colonoscopy due to recent SBO. \ REC: follow Hb. Watch for bleeding. Status: Acute (5) Bilateral pneumonia Status: Acute (6) COPD (chronic obstructive pulmonary disease) Status: Acute (7) Severe sepsis Status: Acute (8) Fever Status: Acute (9) Elevated liver function tests Assessment & Plan: Consider hypotension, sepsis or meds. Rec: Check LFTs, hepatitis profile, consider abdom sono. Status: Acute
[2016-11-26 18:09] LABS: BODY FLUID TYPE PLEURAL
[2016-11-26 18:55] LABS: BF GROSS APPEARANCE SL CLOUDY (CLEAR)
[2016-11-26] MEDS: Midazolam 50 mg/10 ml 100 MG in Sodium Chloride 0.9% 80 ML IV PRN (23:27)
[2016-11-27] MEDS: Sucralfate 1 gm/10 ml Oral Susp UD PO SCH ×4 (01:08→18:16)
[2016-11-27] MEDS: Acyclovir 500 MG in Sodium Chloride 0.9% 100 ML IV SCH ×3 (01:10→18:16)
[2016-11-27] MEDS: Albuterol-Ipratrop 3 mg / 0.5 (3 ml) UD INH SCH ×4 (01:14→19:44)
[2016-11-27 05:37] LABS: ABG MECHANICAL RATE 20; ARTERIAL BLOOD HGB O2 SAT 91.8 % (95.0-98.0); ATERIAL BLOOD GAS PEEP 10; CARBOXYHEMOGLOBIN 2.6 % (0.5-1.5); DRAW SITE RB; HHB 4.7 % (0.0-5.0); METHEMOGLOBIN 0.9 % (0.0-3.0)
[2016-11-27] MEDS: MethylPREDNISolone 40 mg Vial IV SCH ×3 (05:56→21:39)
[2016-11-27] MEDS: Phenylephrine 30 MG in Sodium Chloride 0.9% 250 ML IV PRN (06:33)
[2016-11-27 06:41] LABS: BASO # 0.1 K/uL (0.0-0.2); BASO % 0.3 % (0.0-2.0); HEMATOCRIT 27.2 % (34.0-47.0); LYMPH # 0.5 K/uL (1.0-4.3); LYMPH % 2.5 % (20.0-40.0); MEAN CELL VOLUME 89.3 fL (81.0-99.0); MEAN CORPUSCULAR HEMOGLOBIN 29.8 pg (27.0-31.0); MEAN CORPUSCULAR HGB CONC 33.3 g/dL (33.0-37.0); MEAN PLATELET VOLUME 9.4 fL (7.2-11.7); MONO # 0.6 K/uL (0.0-0.8); MONO % 3.1 % (0.0-10.0); NRBC % 0.4 % (0.0-2.0); PLATELET COUNT 166 K/uL (130-400); RED CELL DISTRIBUTION WIDTH 15.8 % (11.5-14.5); WHITE BLOOD COUNT 18.3 K/uL (4.8-10.8)
[2016-11-27 06:57] LABS: CHLORIDE 116 mmol/L (98-107); POTASSIUM 3.4 mmol/L (3.6-5.2); SODIUM 159 mmol/L (132-148)
[2016-11-27 06:59] LABS: ALKALINE PHOSPHATASE 62 U/L (38-126); AST/SGOT 237 U/L (14-36); BILIRUBIN,TOTAL 1.1 mg/dL (0.2-1.3); CARBON DIOXIDE 36 mmol/L (22-30); GFR AFRICAN-AMERICAN > 60; TOTAL PROTEIN 4.8 g/dL (6.3-8.3)
[2016-11-27 07:00] LABS: ALT/SGPT 214 U/L (9-52); BLOOD UREA NITROGEN 42 mg/dL (7-17); CALCIUM 7.9 mg/dl (8.6-10.4); GLUCOSE,RANDOM 140 mg/dL (65-105); MAGNESIUM 2.3 mg/dL (1.6-2.3); PHOSPHOROUS 2.6 mg/dL (2.5-4.5)
[2016-11-27 07:47] LABS: NEUTROPHIL 94 % (50-75); TOTAL CELLS COUNTED 100
--- NOTE | 2016-11-27 09:01 | CP.PCM.PN ---
Subjective - Date & Time of Evaluation Date of Evaluation: 11/27/16 Time of Evaluation: 07:00 - Subjective Subjective: Patient seen and examined in the intensive care unit. Case discussed with house staff in the morning rounds. Remains intubated on ventilatory support FiO2 increased to 80% with PEEP of 12 and saturation in the low 90s Afebrile Status post transfusion of 2 more units packed RBCs Black tarry stools Status post EGD Objective - Vital Signs/Intake and Output Vital Signs (last 24 hours): Temp Pulse Resp BP Pulse Ox 98.9 F 65 21 127/60 96 11/27/16 08:00 11/27/16 08:00 11/27/16 08:00 11/27/16 08:00 11/27/16 08:00 Intake and Output: 11/27/16 11/27/16 06:59 18:59 Intake Total 1392.6 77.1 Output Total 850 150 Balance 542.6 -72.9 - Medications Medications: Current Medications Albuterol/Ipratropium (Duoneb 3 Mg/0.5 Mg (3 Ml) Ud) 3 ml INH RQ6 [facility] Last Admin: 11/27/16 07:27 Dose: 3 ml Aspirin (Aspirin Chewable) 81 mg PO DAILY [facility] Last Admin: 11/23/16 09:23 Dose: Not Given Clopidogrel Bisulfate (Plavix) 75 mg PO DAILY [facility] Last Admin: 11/23/16 10:33 Dose: Not Given Enoxaparin Sodium (Lovenox) 40 mg SC DAILY [facility] Last Admin: 11/24/16 09:49 Dose: 40 mg Fentanyl Citrate 2,500 mcg/ (Sodium Chloride) 250 mls @ 70 mls/hr IV .Q3H35M [place]; 10 MCG/KG/HR PRN Reason: Protocol Last Admin: 11/27/16 07:56 Dose: 28 mls/hr Midazolam HCl 100 mg/ Sodium (Chloride) 100 mls @ 1.4 mls/hr IV .Q24H PRN; Protocol; 0.02 MG/KG/HR PRN Reason: FOLLOW PROTOCOL Last Titration: 11/26/16 23:53 Dose: 0.04 mg/kg/hr Levetiracetam 500 mg/ Sodium (Chloride) 105 mls @ 420 mls/hr IVPB Q12H [facility] Last Admin: 11/26/16 22:27 Dose: 420 mls/hr Imipenem/Cilastatin Sodium 500 (mg/ Sodium Chloride) 100 mls @ 100 mls/hr IVPB Q8H [facility] Last Admin: 11/27/16 05:55 Dose: 100 mls/hr Phenylephrine HCl 30 mg/ (Sodium Chloride) 253 mls @ 10.12 mls/hr IV .Q24H PRN ; Protocol; 20 MCG/MIN PRN Reason: TITRATE PER MD ORDER Last Admin: 11/27/16 06:33 Dose: 10 mls/hr Acyclovir 500 mg/ Sodium (Chloride) 100 mls @ 100 mls/hr IV Q8H [facility] Last Admin: 11/27/16 01:10 Dose: 100 mls/hr Methylprednisolone (Solu-Medrol) 60 mg IV Q8 [facility] Last Admin: 11/27/16 05:56 Dose: 60 mg Pantoprazole Sodium (Protonix Inj) 40 mg IVP Q12H [facility] Last Admin: 11/27/16 06:06 Dose: 40 mg Sucralfate (Carafate Oral Susp) 1 gm PO Q6H [facility] Last Admin: 11/27/16 06:06 Dose: 1 gm - Labs Labs: 11/27/16 06:31 11/27/16 06:33 PT 15.0 SECONDS (9.7-12.2) H 11/26/16 12:14 INR 1.3 11/26/16 12:14 APTT 28 SECONDS (21-34) 11/26/16 12:14 - Head Exam Head Exam: ATRAUMATIC, NORMOCEPHALIC - Eye Exam Eye Exam: Normal appearance - ENT Exam ENT Exam: Mucous Membranes Moist - Neck Exam Neck Exam: Normal Inspection - Respiratory Exam Respiratory Exam: Rales - Cardiovascular Exam Cardiovascular Exam: REGULAR RHYTHM - GI/Abdominal Exam GI & Abdominal Exam: Soft, Normal Bowel Sounds - Extremities Exam Extremities Exam: Pedal Edema - Neurological Exam Neurological Exam: Awake Assessment and Plan (1) Acute respiratory failure with hypoxia Assessment & Plan: Reduce FiO2 as tolerated Continue ventilatory support with no weaning Consider Lasix Antibiotics per ID On high-dose steroids Continue feeding Status: Acute (2) Bilateral pneumonia Status: Acute (3) Small bowel obstruction Status: Acute
[2016-11-27] MEDS: levETIRAcetam 500 MG in Sodium Chloride 0.9% 100 ML IVPB SCH ×2 (10:27→23:55)
[2016-11-27] MEDS: Furosemide 100 MG in Dextrose 5% In Water 90 ML IV SCH ×3 (10:29→21:35)
[2016-11-27] MEDS: Potassium Chloride 20 mEq 100 ML IVPB SCH ×3 (10:36→15:09)
--- NOTE | 2016-11-27 11:32 | CP.CCUPN ---
<Mariana Robison - Last Filed: 11/27/16 15:02> CCU Subjective - Physician Review Events Since Last Encounter (Free Text): 11/27/16 11:29 No change, no improvement Subjective (Free Text): 11/10/16 12:04 Pt S & E this AM. Reports ab pain and SOB improved- on VTM. Had soft unformed BMs x 2 yesterday, 1 liquid stool today with large volume flatus. Denies N/V/F/C, chest pain. 11/11/16 12:38 Pt S & E this AM. Pt reports having 3 liquid stools yesterday, continues to require VTM 2/2 SOB, insomnia. Abdominal pain much improved, abdominal distention much improved. Denies N/V/F/C, chest pain. 11/12/16 14:26 Pt S & E this AM. Pt reports continued SOB, likes being on Bipap 2/2 less work to breathe. Ab pain improved, continues with liquid stools, now has non productive cough. 11/13/16 16:55 Pt S & E this AM. Pt continues w/SOB requiring Bipap overnight, using more Bipap vs. VTM mask, states she had insomnia overnight 2/2 SOB, needing to focus on breathing. Abdominal pain resolved. Had slight nausea yesterday with protein supplement. Had 1 liquid BM yesterday. Denies emesis, fevers, chills, chest pain. 11/16/16 13:44 P S & E this AM. Pt on BiPAP -tolerating it well. Pt admits to epigastric abdominal pain, hunger -asking for food. For OR tomorrow for bronchoscopy and wedge biopsy with Dr. Chan. 11/17/16 12:40 Pt S & E this AM. Pt stable on BiPAP confortable overnight. Continued epigastric pain but tolerating diet intermittently. No BM despite SS enema & colace. For bronchoscopy and wedge biopsy today with Dr. Chan. 11/18/16 18:07 Pt S & E this AM. Pt intubated/sedated, but alert, awake. Gesturing that her abdominal pain has resolved. 11/19/16 12:34 Pt S & E this AM. Pt intubated/sedated, but alert & awake. C/O chest wall pain, asking for sleep medication. 11/20/16 14:57 Pt S & E this AM. Pt intubated/sedated, but alert, awake, no abdominal pain, stable. 11/23/16 11:41 Pt S & E this AM. Pt intubated/sedated, but alert, awake, no complaints, denies abdominal pain. Asking for ET tube to be removed. 11/24/16 12:02 Pt S & E this AM. Pt still intubated/sedated, but alert/awake, gesturing that her mouth is dry, asking if she is going to . Will re-start psych meds for comfort. 11/25/16 12:45 Pt S & E this AM. Pt not arousable to verbal stimuli- pt paler vs. yesterday, w/visualized melenic liquid stool on exam. 11/26/16 11:53 Pt S & E this AM. Pt arousable to tactile stimuli, pt seems more lethargic, not following simple commands. 11/27/16 11:30 Pt S & E this AM. Pt arousable to tactile stimuli, still not following simple commands. Critical Care Time Spent (in minutes): 60 CCU Objective - Vital Signs / Intake & Output Vital Signs (Last 4 hours): Vital Signs Temp Pulse Resp BP Pulse Ox 11/27/16 10:29 109/52 L 11/27/16 10:00 77 25 H 109/52 L 98 11/27/16 09:00 76 26 H 107/48 L 98 11/27/16 08:00 98.9 F 65 21 127/60 96 Intake and Output (Last 8hrs): Intake & Output 11/26/16 11/27/16 11/27/16 22:59 06:59 14:59 Intake Total 1756.4 664.4 254.7 Output Total 510 670 270 Balance 1246.4 -5.6 -15.3 Weight 63.367 kg Intake: Intake, IV Amount 606.4 664.4 254.7 Right Forearm 4 Right Medial Port 200 300 100 Internal Jugular Right Distal Port 32 25 11 Internal Jugular Right Proximal Port 160 125.0 32.5 Internal Jugular RT IJ TLC Distal port 2 214.4 214.4 107.2 Blood Product 1150 Red Blood Cells Cpd As1 325 Lr Unit [id number] Red Blood Cells Cpd As1 325 Lr Unit [id number] Output: Chest Tube Drainage 10 0 0 Right Mid-Axillary Chest 10 0 0 Gastric Amount 150 Stomach 150 Urine 500 520 270 Urethral (Mishra) 500 520 270 Other: # Bowel Movements 1 1 - Physical Exam Head: Positive for: Atraumatic, Normocephalic Pupils: Positive for: PERRL Extroacular Muscles: Positive for: EOMI Conjunctiva: Positive for: Normal Ears: Positive for: Normal Mouth: Positive for: Dry, Other (ET & OG tubes in place) Pharnyx: Positive for: Normal Nose (External): Positive for: Atraumatic Neck: Positive for: Normal Range of Motion, Trachea Midline, Other (Right IJ (- ) erythema/drainage) Respiratory/Chest: Positive for: Good Air Exchange, Wheezes (mild B/L), Decreased Breath Sounds, Rhonchi (at bases), Other (Right chest wall w/CT in place, dressing - C/D/I). Negative for: Clear to Auscultation, Respiratory Distress, Accessory Muscle Use, Rales, Retracting Cardiovascular: Positive for: Regular Rate and Rhythm, Normal S1, S2, Peripheal Pulses Present. Negative for: Murmurs, Rub, Gallop Abdomen: Negative for: Tenderness, Distention, Normal Bowel Sounds, Peritoneal Signs, Rebound, Guarding, Rovsing's Sign Present Upper Extremity: Positive for: Normal Inspection. Negative for: Cyanosis, Edema Lower Extremity: Positive for: Normal Inspection. Negative for: Edema Neurological: Positive for: Other (intubated/sedated). Negative for: GCS=15, Speech Normal Skin: Positive for: Warm, Dry, Normal Color, Pale. Negative for: Rashes Psychiatric: Negative for: Alert, Oriented x 3, Normal Insight, Normal Concentration - Medications Active Medications: Active Medications Generic Name Dose Route Start Last Admin Trade Name Freq PRN Reason Stop Dose Admin Albuterol/Ipratropium 3 ml 11/19/16 02:00 11/27/16 07:27 Duoneb 3 Mg/0.5 Mg (3 Ml) Ud INH 3 ml RQ6 BALBINA Administration Aspirin 81 mg 11/07/16 10:00 11/23/16 09:23 Aspirin Chewable PO Not Given DAILY BALBINA Clopidogrel Bisulfate 75 mg 11/07/16 10:00 11/23/16 10:33 Plavix PO Not Given DAILY BALBINA Enoxaparin Sodium 40 mg 11/07/16 10:00 11/24/16 09:49 Lovenox SC 40 mg DAILY BALBINA Administration Fentanyl Citrate 2,500 mcg/ 250 mls @ 70 mls/hr 11/19/16 10:35 11/27/16 07:56 Sodium Chloride IV 28 mls/hr .Q3H35M BALBINA Administration Protocol 10 MCG/KG/HR Midazolam HCl 100 mg/ Sodium 100 mls @ 1.4 mls/hr 11/20/16 15:00 11/26/16 23:53 Chloride IV 0.04 mg/kg/hr .Q24H PRN Titration FOLLOW PROTOCOL Protocol 0.02 MG/KG/HR Levetiracetam 500 mg/ Sodium 105 mls @ 420 mls/hr 11/21/16 11:00 11/27/16 10:27 Chloride IVPB 420 mls/hr Q12H BALBINA Administration Imipenem/Cilastatin Sodium 500 100 mls @ 100 mls/hr 11/25/16 22:00 11/27/16 05: 55 mg/ Sodium Chloride IVPB 100 mls/hr Q8H BALBINA Administration Phenylephrine HCl 30 mg/ 253 mls @ 10.12 mls/hr 11/26/16 01:12 11/27/16 06:33 Sodium Chloride IV 10 mls/hr .Q24H PRN Administration TITRATE PER MD ORDER Protocol 20 MCG/MIN Acyclovir 500 mg/ Sodium 100 mls @ 100 mls/hr 11/26/16 18:00 11/27/16 09:00 Chloride IV 100 mls/hr Q8H BALBINA Administration Furosemide 100 mg/ Dextrose 100 mls @ 10 mls/hr 11/27/16 10:00 11/27/16 10:29 IV 10 mls/hr .Q10H BALBINA Administration Protocol 10 MG/HR Propofol 100 mls @ 1.901 mls/hr 11/27/16 09:22 11/27/16 09:48 Diprivan IV 1.901 mls/hr .Q24H PRN Administration TITRATE PER MD ORDER Protocol 5 MCG/KG/MIN Potassium Chloride 100 mls @ 50 mls/hr 11/27/16 10:00 11/27/16 10:36 Potassium Chloride 20 Meq/100 Ml IVPB 11/27/16 15:59 50 mls/hr Q2 BALBINA Administration Methylprednisolone 60 mg 11/24/16 14:00 11/27/16 05:56 Solu-Medrol IV 60 mg Q8 BALBINA Administration Pantoprazole Sodium 40 mg 11/24/16 07:00 11/27/16 06:06 Protonix Inj IVP 40 mg Q12H BALBINA Administration Sucralfate 1 gm 11/24/16 07:00 11/27/16 06:06 Carafate Oral Susp PO 1 gm Q6H BALBINA Administration - Patient Studies Lab Studies: Microbiology Studies 11/26/16 Unknown Gram Stain - Final Pleural Fluid Body Fluid Culture - Preliminary NO GROWTH AFTER 24 HOURS Fungal Culture - Preliminary 11/24/16 22:30 Blood Culture - Preliminary Blood-Thru Central Line NO GROWTH AFTER 48 HOURS 11/24/16 23:00 Blood Culture - Preliminary Blood-Thru Central Line NO GROWTH AFTER 48 HOURS 11/24/16 22:17 Urine Culture - Final Urine,Mishra No Growth (<1,000 CFU/ML) Lab Studies 11/27/16 11/27/16 11/27/16 Range/Units 07:41 06:33 06:31 WBC 18.3 H (4.8-10.8) K/uL RBC 3.04 L (3.80-5.20) Mil/uL Hgb 9.0 L (11.0-16.0) g/dL Hct 27.2 L (34.0-47.0) % MCV 89.3 (81.0-99.0) fL MCH 29.8 (27.0-31.0) pg MCHC 33.3 (33.0-37.0) g/dL RDW 15.8 H (11.5-14.5) % Plt Count 166 (130-400) K/uL MPV 9.4 (7.2-11.7) fL Neut % (Auto) 94.1 H (50.0-75.0) % Lymph % (Auto) 2.5 L (20.0-40.0) % [place] % (Auto) 3.1 (0.0-10.0) % Eos % (Auto) 0.0 (0.0-4.0) % Baso % (Auto) 0.3 (0.0-2.0) % Neut # 17.2 H (1.8-7.0) K/uL Lymph # 0.5 L (1.0-4.3) K/uL [place] # 0.6 (0.0-0.8) K/uL Eos # 0.0 (0.0-0.7) K/uL Baso # 0.1 (0.0-0.2) K/uL Neutrophils % (Manual) 94 H (50-75) % Lymphocytes % (Manual) 4 L (20-40) % Monocytes % (Manual) 2 (0-10) % Platelet Estimate Normal (NORMAL) Anisocytosis (manual) Slight Ovalocytes Slight PT (9.7-12.2) SECONDS INR APTT (21-34) SECONDS Puncture Site pCO2 (35-45) mm/Hg pO2 (80-100) mm/Hg HCO3 (21-28) mmol/L ABG pH (7.35-7.45) ABG Total CO2 (22-28) mmol/L ABG O2 Saturation (95-98) % ABG Base Excess (-2.0-3.0) mmol/L ABG Hemoglobin (11.7-17.4) g/dL ABG Carboxyhemoglobin (0.5-1.5) % POC ABG HHb (Measured) (0.0-5.0) % ABG Methemoglobin (0.0-3.0) % Reese Test A-a O2 Difference mm/Hg Respiratory Index Hgb O2 Saturation (95.0-98.0) % Mechanical Rate FiO2 % Tidal Volume PEEP Sodium 159 H (132-148) mmol/L Potassium 3.4 L (3.6-5.2) mmol/L Chloride 116 H (98-107) mmol/L Carbon Dioxide 36 H (22-30) mmol/L Anion Gap 10 (10-20) BUN 42 H (7-17) mg/dL Creatinine 0.8 (0.7-1.2) MG/DL Est GFR ( Amer) > 60 Est GFR (Non-Af Amer) > 60 Random Glucose 140 H (65-105) mg/dL Calcium 7.9 L (8.6-10.4) mg/dl Phosphorus 2.6 (2.5-4.5) mg/dL Magnesium 2.3 (1.6-2.3) mg/dL Total Bilirubin 1.1 (0.2-1.3) mg/dL AST 237 H (14-36) U/L ALT 214 H D (9-52) U/L Alkaline Phosphatase 62 (38-126) U/L Total Protein 4.8 L (6.3-8.3) g/dL Albumin 2.4 L (3.5-5.0) g/dL Globulin 2.4 (2.2-3.9) gm/dL Albumin/Globulin Ratio 1.0 (1.0-2.1) Fluid Source Fluid Appearance (CLEAR) Fluid WBC (0.0-300.0) /mm3 Fluid RBC (0.0-0.0) /mm3 Fluid Tot Cell Count Fluid Neutrophils (0-0) % Fluid Lymphocytes (0-0) % Fld Monocyte/Macrophag (0-0) % Fluid Comment Stool Occult Blood Negative (NEGATIVE) Blood Type Antibody Screen 11/27/16 11/26/16 11/26/16 Range/Units 05:29 18:07 12:17 WBC (4.8-10.8) K/uL RBC (3.80-5.20) Mil/uL Hgb (11.0-16.0) g/dL Hct (34.0-47.0) % MCV (81.0-99.0) fL MCH (27.0-31.0) pg MCHC (33.0-37.0) g/dL RDW (11.5-14.5) % Plt Count (130-400) K/uL MPV (7.2-11.7) fL Neut % (Auto) (50.0-75.0) % Lymph % (Auto) (20.0-40.0) % [place] % (Auto) (0.0-10.0) % Eos % (Auto) (0.0-4.0) % Baso % (Auto) (0.0-2.0) % Neut # (1.8-7.0) K/uL Lymph # (1.0-4.3) K/uL [place] # (0.0-0.8) K/uL Eos # (0.0-0.7) K/uL Baso # (0.0-0.2) K/uL Neutrophils % (Manual) (50-75) % Lymphocytes % (Manual) (20-40) % Monocytes % (Manual) (0-10) % Platelet Estimate (NORMAL) Anisocytosis (manual) Ovalocytes PT (9.7-12.2) SECONDS INR APTT (21-34) SECONDS Puncture Site Rb pCO2 59 H (35-45) mm/Hg pO2 60 L (80-100) mm/Hg HCO3 31.5 H (21-28) mmol/L ABG pH 7.38 (7.35-7.45) ABG Total CO2 36.7 H (22-28) mmol/L ABG O2 Saturation 95.1 (95-98) % ABG Base Excess 8.5 H (-2.0-3.0) mmol/L ABG Hemoglobin 9.1 L (11.7-17.4) g/dL ABG Carboxyhemoglobin 2.6 H (0.5-1.5) % POC ABG HHb (Measured) 4.7 (0.0-5.0) % ABG Methemoglobin 0.9 (0.0-3.0) % Reese Test Na A-a O2 Difference 437.0 mm/Hg Respiratory Index 7.3 Hgb O2 Saturation 91.8 L (95.0-98.0) % Mechanical Rate 20 FiO2 80.0 % Tidal Volume 400 PEEP 10 Sodium (132-148) mmol/L Potassium (3.6-5.2) mmol/L Chloride (98-107) mmol/L Carbon Dioxide (22-30) mmol/L Anion Gap (10-20) BUN (7-17) mg/dL Creatinine (0.7-1.2) MG/DL Est GFR ( Amer) Est GFR (Non-Af Amer) Random Glucose (65-105) mg/dL Calcium (8.6-10.4) mg/dl Phosphorus (2.5-4.5) mg/dL Magnesium (1.6-2.3) mg/dL Total Bilirubin (0.2-1.3) mg/dL AST (14-36) U/L ALT (9-52) U/L Alkaline Phosphatase (38-126) U/L Total Protein (6.3-8.3) g/dL Albumin (3.5-5.0) g/dL Globulin (2.2-3.9) gm/dL Albumin/Globulin Ratio (1.0-2.1) Fluid Source Pleural Fluid Appearance Sl cloudy (CLEAR) Fluid WBC 183.0 (0.0-300.0) /mm3 Fluid RBC 00797.0 H (0.0-0.0) /mm3 Fluid Tot Cell Count TEST NOT PERFORMED Fluid Neutrophils 78.0 H (0-0) % Fluid Lymphocytes 18.0 H (0-0) % Fld Monocyte/Macrophag 4 H (0-0) % Fluid Comment Stool Occult Blood (NEGATIVE) Blood Type AB POSITIVE Antibody Screen Negative 11/26/16 Range/Units 12:14 WBC (4.8-10.8) K/uL RBC (3.80-5.20) Mil/uL Hgb (11.0-16.0) g/dL Hct (34.0-47.0) % MCV (81.0-99.0) fL MCH (27.0-31.0) pg MCHC (33.0-37.0) g/dL RDW (11.5-14.5) % Plt Count (130-400) K/uL MPV (7.2-11.7) fL Neut % (Auto) (50.0-75.0) % Lymph % (Auto) (20.0-40.0) % [place] % (Auto) (0.0-10.0) % Eos % (Auto) (0.0-4.0) % Baso % (Auto) (0.0-2.0) % Neut # (1.8-7.0) K/uL Lymph # (1.0-4.3) K/uL [place] # (0.0-0.8) K/uL Eos # (0.0-0.7) K/uL Baso # (0.0-0.2) K/uL Neutrophils % (Manual) (50-75) % Lymphocytes % (Manual) (20-40) % Monocytes % (Manual) (0-10) % Platelet Estimate (NORMAL) Anisocytosis (manual) Ovalocytes PT 15.0 H (9.7-12.2) SECONDS INR 1.3 APTT 28 (21-34) SECONDS Puncture Site pCO2 (35-45) mm/Hg pO2 (80-100) mm/Hg HCO3 (21-28) mmol/L ABG pH (7.35-7.45) ABG Total CO2 (22-28) mmol/L ABG O2 Saturation (95-98) % ABG Base Excess (-2.0-3.0) mmol/L ABG Hemoglobin (11.7-17.4) g/dL ABG Carboxyhemoglobin (0.5-1.5) % POC ABG HHb (Measured) (0.0-5.0) % ABG Methemoglobin (0.0-3.0) % Reese Test A-a O2 Difference mm/Hg Respiratory Index Hgb O2 Saturation (95.0-98.0) % Mechanical Rate FiO2 % Tidal Volume PEEP Sodium (132-148) mmol/L Potassium (3.6-5.2) mmol/L Chloride (98-107) mmol/L Carbon Dioxide (22-30) mmol/L Anion Gap (10-20) BUN (7-17) mg/dL Creatinine (0.7-1.2) MG/DL Est GFR ( Amer) Est GFR (Non-Af Amer) Random Glucose (65-105) mg/dL Calcium (8.6-10.4) mg/dl Phosphorus (2.5-4.5) mg/dL Magnesium (1.6-2.3) mg/dL Total Bilirubin (0.2-1.3) mg/dL AST (14-36) U/L ALT (9-52) U/L Alkaline Phosphatase (38-126) U/L Total Protein (6.3-8.3) g/dL Albumin (3.5-5.0) g/dL Globulin (2.2-3.9) gm/dL Albumin/Globulin Ratio (1.0-2.1) Fluid Source Fluid Appearance (CLEAR) Fluid WBC (0.0-300.0) /mm3 Fluid RBC (0.0-0.0) /mm3 Fluid Tot Cell Count Fluid Neutrophils (0-0) % Fluid Lymphocytes (0-0) % Fld Monocyte/Macrophag (0-0) % Fluid Comment Stool Occult Blood (NEGATIVE) Blood Type Antibody Screen Laboratory Results - last 24 hr 11/26/16 11/26/16 11/26/16 12:14 12:17 18:07 WBC RBC Hgb Hct MCV MCH MCHC RDW Plt Count MPV Neut % (Auto) Lymph % (Auto) [place] % (Auto) Eos % (Auto) Baso % (Auto) Neut # Lymph # [place] # Eos # Baso # Neutrophils % (Manual) Lymphocytes % (Manual) Monocytes % (Manual) Platelet Estimate Anisocytosis (manual) Ovalocytes PT 15.0 H INR 1.3 APTT 28 Puncture Site pCO2 pO2 HCO3 ABG pH ABG Total CO2 ABG O2 Saturation ABG Base Excess ABG Hemoglobin ABG Carboxyhemoglobin POC ABG HHb (Measured) ABG Methemoglobin Reese Test A-a O2 Difference Respiratory Index Hgb O2 Saturation Mechanical Rate FiO2 Tidal Volume PEEP Sodium Potassium Chloride Carbon Dioxide Anion Gap BUN Creatinine Est GFR ( Amer) Est GFR (Non-Af Amer) Random Glucose Calcium Phosphorus Magnesium Total Bilirubin AST ALT Alkaline Phosphatase Total Protein Albumin Globulin Albumin/Globulin Ratio Fluid Source Pleural Fluid Appearance Sl cloudy Fluid WBC 183.0 Fluid RBC 99934.0 H Fluid Tot Cell Count TEST NOT PERFORMED Fluid Neutrophils 78.0 H Fluid Lymphocytes 18.0 H Fld Monocyte/Macrophag 4 H Fluid Comment Stool Occult Blood Blood Type AB POSITIVE Antibody Screen Negative 11/27/16 11/27/16 11/27/16 05:29 06:31 06:33 WBC 18.3 H RBC 3.04 L Hgb 9.0 L Hct 27.2 L MCV 89.3 MCH 29.8 MCHC 33.3 RDW 15.8 H Plt Count 166 MPV 9.4 Neut % (Auto) 94.1 H Lymph % (Auto) 2.5 L [place] % (Auto) 3.1 Eos % (Auto) 0.0 Baso % (Auto) 0.3 Neut # 17.2 H Lymph # 0.5 L [place] # 0.6 Eos # 0.0 Baso # 0.1 Neutrophils % (Manual) 94 H Lymphocytes % (Manual) 4 L Monocytes % (Manual) 2 Platelet Estimate Normal Anisocytosis (manual) Slight Ovalocytes Slight PT INR APTT Puncture Site Rb pCO2 59 H pO2 60 L HCO3 31.5 H ABG pH 7.38 ABG Total CO2 36.7 H ABG O2 Saturation 95.1 ABG Base Excess 8.5 H ABG Hemoglobin 9.1 L ABG Carboxyhemoglobin 2.6 H POC ABG HHb (Measured) 4.7 ABG Methemoglobin 0.9 Reese Test Na A-a O2 Difference 437.0 Respiratory Index 7.3 Hgb O2 Saturation 91.8 L Mechanical Rate 20 FiO2 80.0 Tidal Volume 400 PEEP 10 Sodium 159 H Potassium 3.4 L Chloride 116 H Carbon Dioxide 36 H Anion Gap 10 BUN 42 H Creatinine 0.8 Est GFR ( Amer) > 60 Est GFR (Non-Af Amer) > 60 Random Glucose 140 H Calcium 7.9 L Phosphorus 2.6 Magnesium 2.3 Total Bilirubin 1.1 AST 237 H ALT 214 H D Alkaline Phosphatase 62 Total Protein 4.8 L Albumin 2.4 L Globulin 2.4 Albumin/Globulin Ratio 1.0 Fluid Source Fluid Appearance Fluid WBC Fluid RBC Fluid Tot Cell Count Fluid Neutrophils Fluid Lymphocytes Fld Monocyte/Macrophag Fluid Comment Stool Occult Blood Blood Type Antibody Screen 11/27/16 07:41 WBC RBC Hgb Hct MCV MCH MCHC RDW Plt Count MPV Neut % (Auto) Lymph % (Auto) [place] % (Auto) Eos % (Auto) Baso % (Auto) Neut # Lymph # [place] # Eos # Baso # Neutrophils % (Manual) Lymphocytes % (Manual) Monocytes % (Manual) Platelet Estimate Anisocytosis (manual) Ovalocytes PT INR APTT Puncture Site pCO2 pO2 HCO3 ABG pH ABG Total CO2 ABG O2 Saturation ABG Base Excess ABG Hemoglobin ABG Carboxyhemoglobin POC ABG HHb (Measured) ABG Methemoglobin Reese Test A-a O2 Difference Respiratory Index Hgb O2 Saturation Mechanical Rate FiO2 Tidal Volume PEEP Sodium Potassium Chloride Carbon Dioxide Anion Gap BUN Creatinine Est GFR ( Amer) Est GFR (Non-Af Amer) Random Glucose Calcium Phosphorus Magnesium Total Bilirubin AST ALT Alkaline Phosphatase Total Protein Albumin Globulin Albumin/Globulin Ratio Fluid Source Fluid Appearance Fluid WBC Fluid RBC Fluid Tot Cell Count Fluid Neutrophils Fluid Lymphocytes Fld Monocyte/Macrophag Fluid Comment Stool Occult Blood Negative Blood Type Antibody Screen Review of Systems - Review of Systems Systems not reviewed;Unavailable: Intubated Critical Care Progress Note - Ventilator Checklist Head of Bed 30 Degrees: Yes Daily Sedation Vacation: Yes Daily Assessment of Readiness to Learn: Yes Daily Spontaneous Breathing Trial: Yes PUD Prophalyxis: Yes DVT Prophylaxis: Yes Oral Care with Chlorhexidine Gluconate {CHG}: Yes - Vent Settings MODE:: PRVC TIDAL VOLUME:: 400 RESP RATE:: 20 FIO2:: 80 PEEP:: 10 - Extremities/Vascular Does the Patient have a Central Venous Catheter?: Yes Insertion Site: Internal Jugular Vein Does the Patient need a Central Venous Catheter?: Yes Does the Patient have a Mishra Catheter?: Yes Does the Patient need a Mishra Catheter?: Yes Catheter Insertion Criteria: Need for accurate measurement of output in critically ill patient - Prophylaxis GI Prophylaxis GI: PPI - Prophylaxis DVT Prophylaxis DVT: SCDs Assessment/Plan - Assessment and Plan (Free Text) Assessment: 51F POD#9 s/p RLL wedge resection, GI bleed- s/p a total of 7 units pRBCs, still intubated/sedated, worsening kidney function. Now with transaminitis. Poor prognosis. Plan: Neuro Sedated- Fentanyl drip, Propofol drip, Versed drip Cont home meds: Zoloft, Keppra Seroquel Seizure precautions Monitor CVS Hypotensive HR WNL Phenylephrine Monitor Pulm Organizing PNA POD#9 s/p RLL wedge resection ABG pH 7.38 O2 59, CO2 60, HCO3 31.5 Intubated ON mech vent protective lung protocol Duonebs Solu-medrol Lasix drip started CXR - Reticular nodular opacities seen throughout both lungs slightly increased from prior radiograph from 11/26/2016. Monitor Pulm following Nephro Hypernatremia- Na 159 Free water- 250cc Q6H Hypokalemia- K 3.4 Replaced Hyperphosphatemia- PHos 7.9 Monitor GI Melena overnight x [address] Tube feeds held Sulcrafate Gen surg following- SBO resolved GI following Mishra in place MOnitor UOP Heme GI bleed, s/p total of 7 units pRBCs Hgb 8 from 7.[address] w/10cc serosanguinous output/24H Endo Sugars WNL Monitor MSK Monitor for skin break down ID Leukocytosis 18.3 from 23.8 Febrile over last 24H, Tmax 101.3 Acyclovir Micafungin Primaxin Tylenol PRN Blood cx neg x 48H ID following GI/DVT ppx Protonix SCDs Lovenox d/c'd 2/2 GI bleed Contraindications to DVT ppx Dispo: Cont ICU care On mech vent Pallative care consult DW son prognosis- plan of care Monitor DW attending - Date & Time Date: 11/27/16 Time: 07:00 <Wendy Michael - Last Filed: 11/27/16 17:02> CCU Objective - Vital Signs / Intake & Output Vital Signs (Last 4 hours): Vital Signs Pulse Resp BP Pulse Ox 11/27/16 14:00 80 23 118/67 97 11/27/16 13:00 85 25 H 98/67 L 97 Intake and Output (Last 8hrs): Intake & Output 11/27/16 11/27/16 11/27/16 06:59 14:59 22:59 Intake Total 664.4 661.4 Output Total 670 1195 Balance -5.6 -533.6 Weight 139 lb 11.2 oz Intake: Intake, IV Amount 664.4 661.4 Right Forearm 28 Right Medial Port 300 300 Internal Jugular Right Distal Port 25 19 Internal Jugular Right Proximal Port 125.0 60.0 Internal Jugular RT IJ TLC Distal port 2 214.4 214.4 RIJ Proximal 40 Output: Chest Tube Drainage 0 0 Right Mid-Axillary Chest 0 0 Gastric Amount 150 Stomach 150 Urine 520 1195 Urethral (Mishra) 520 1195 Other: # Bowel Movements 1 - Medications Active Medications: Active Medications Generic Name Dose Route Start Last Admin Trade Name Freq PRN Reason Stop Dose Admin Albuterol/Ipratropium 3 ml 11/19/16 02:00 11/27/16 13:21 Duoneb 3 Mg/0.5 Mg (3 Ml) Ud INH 3 ml RQ6 BALBINA Administration Aspirin 81 mg 11/07/16 10:00 11/23/16 09:23 Aspirin Chewable PO Not Given DAILY BALBINA Clopidogrel Bisulfate 75 mg 11/07/16 10:00 11/23/16 10:33 Plavix PO Not Given DAILY BALBINA Enoxaparin Sodium 40 mg 11/07/16 10:00 11/24/16 09:49 Lovenox SC 40 mg DAILY BALBINA Administration Fentanyl Citrate 2,500 mcg/ 250 mls @ 70 mls/hr 11/19/16 10:35 11/27/16 07:56 Sodium Chloride IV 28 mls/hr .Q3H35M BALBINA Administration Protocol 10 MCG/KG/HR Midazolam HCl 100 mg/ Sodium 100 mls @ 1.4 mls/hr 11/20/16 15:00 11/26/16 23:53 Chloride IV 0.04 mg/kg/hr .Q24H PRN Titration FOLLOW PROTOCOL Protocol 0.02 MG/KG/HR Levetiracetam 500 mg/ Sodium 105 mls @ 420 mls/hr 11/21/16 11:00 11/27/16 10:27 Chloride IVPB 420 mls/hr Q12H [facility] Administration Imipenem/Cilastatin Sodium 500 100 mls @ 100 mls/hr 11/25/16 22:00 11/27/16 15: 30 mg/ Sodium Chloride IVPB 100 mls/hr Q8H [facility] Administration Phenylephrine HCl 30 mg/ 253 mls @ 10.12 mls/hr 11/26/16 01:12 11/27/16 06:33 Sodium Chloride IV 10 mls/hr .Q24H PRN Administration TITRATE PER MD ORDER Protocol 20 MCG/MIN Acyclovir 500 mg/ Sodium 100 mls @ 100 mls/hr 11/26/16 18:00 11/27/16 09:00 Chloride IV 100 mls/hr Q8H [facility] Administration Furosemide 100 mg/ Dextrose 100 mls @ 10 mls/hr 11/27/16 10:00 11/27/16 10:29 IV 10 mls/hr .Q10H [facility] Administration Protocol 10 MG/HR Propofol 100 mls @ 1.901 mls/hr 11/27/16 09:22 11/27/16 09:48 Diprivan IV 1.901 mls/hr .Q24H PRN Administration TITRATE PER MD ORDER Protocol 5 MCG/KG/MIN Methylprednisolone 60 mg 11/24/16 14:00 11/27/16 14:03 Solu-Medrol IV 60 mg Q8 [facility] Administration Pantoprazole Sodium 40 mg 11/24/16 07:00 11/27/16 06:06 Protonix Inj IVP 40 mg Q12H [facility] Administration Sucralfate 1 gm 11/24/16 07:00 11/27/16 14:04 Carafate Oral Susp PO 1 gm Q6H [facility] Administration - Patient Studies Lab Studies: Microbiology Studies 11/26/16 Unknown Gram Stain - Final Pleural Fluid Body Fluid Culture - Preliminary NO GROWTH AFTER 24 HOURS Fungal Culture - Preliminary 11/24/16 22:30 Blood Culture - Preliminary Blood-Thru [place] NO GROWTH AFTER 48 HOURS 11/24/16 23:00 Blood Culture - Preliminary Blood-Thru [place] NO GROWTH AFTER 48 HOURS Lab Studies 11/27/16 11/27/16 11/27/16 Range/Units 07:41 06:33 06:31 WBC 18.3 H (4.8-10.8) K/uL RBC 3.04 L (3.80-5.20) Mil/uL Hgb 9.0 L (11.0-16.0) g/dL Hct 27.2 L (34.0-47.0) % MCV 89.3 (81.0-99.0) fL MCH 29.8 (27.0-31.0) pg MCHC 33.3 (33.0-37.0) g/dL RDW 15.8 H (11.5-14.5) % Plt Count 166 (130-400) K/uL MPV 9.4 (7.2-11.7) fL Neut % (Auto) 94.1 H (50.0-75.0) % Lymph % (Auto) 2.5 L (20.0-40.0) % [place] % (Auto) 3.1 (0.0-10.0) % Eos % (Auto) 0.0 (0.0-4.0) % Baso % (Auto) 0.3 (0.0-2.0) % Neut # 17.2 H (1.8-7.0) K/uL Lymph # 0.5 L (1.0-4.3) K/uL [place] # 0.6 (0.0-0.8) K/uL Eos # 0.0 (0.0-0.7) K/uL Baso # 0.1 (0.0-0.2) K/uL Neutrophils % (Manual) 94 H (50-75) % Lymphocytes % (Manual) 4 L (20-40) % Monocytes % (Manual) 2 (0-10) % Platelet Estimate Normal (NORMAL) Anisocytosis (manual) Slight Ovalocytes Slight Puncture Site pCO2 (35-45) mm/Hg pO2 (80-100) mm/Hg HCO3 (21-28) mmol/L ABG pH (7.35-7.45) ABG Total CO2 (22-28) mmol/L ABG O2 Saturation (95-98) % ABG Base Excess (-2.0-3.0) mmol/L ABG Hemoglobin (11.7-17.4) g/dL ABG Carboxyhemoglobin (0.5-1.5) % POC ABG HHb (Measured) (0.0-5.0) % ABG Methemoglobin (0.0-3.0) % Reese Test A-a O2 Difference mm/Hg Respiratory Index Hgb O2 Saturation (95.0-98.0) % Mechanical Rate FiO2 % Tidal Volume PEEP Sodium 159 H (132-148) mmol/L Potassium 3.4 L (3.6-5.2) mmol/L Chloride 116 H (98-107) mmol/L Carbon Dioxide 36 H (22-30) mmol/L Anion Gap 10 (10-20) BUN 42 H (7-17) mg/dL Creatinine 0.8 (0.7-1.2) MG/DL Est GFR ( Amer) > 60 Est GFR (Non-Af Amer) > 60 Random Glucose 140 H (65-105) mg/dL Calcium 7.9 L (8.6-10.4) mg/dl Phosphorus 2.6 (2.5-4.5) mg/dL Magnesium 2.3 (1.6-2.3) mg/dL Total Bilirubin 1.1 (0.2-1.3) mg/dL AST 237 H (14-36) U/L ALT 214 H D (9-52) U/L Alkaline Phosphatase 62 (38-126) U/L Total Protein 4.8 L (6.3-8.3) g/dL Albumin 2.4 L (3.5-5.0) g/dL Globulin 2.4 (2.2-3.9) gm/dL Albumin/Globulin Ratio 1.0 (1.0-2.1) Fluid Source Fluid Appearance (CLEAR) Fluid WBC (0.0-300.0) /mm3 Fluid RBC (0.0-0.0) /mm3 Fluid Tot Cell Count Fluid Neutrophils (0-0) % Fluid Lymphocytes (0-0) % Fld Monocyte/Macrophag (0-0) % Fluid Comment Stool Occult Blood Negative (NEGATIVE) HSV I IgG Ab (0.00-0.89) HSV II IgG (0.00-0.89) Blood Type Antibody Screen 11/27/16 11/26/16 11/26/16 Range/Units 05:29 18:07 12:17 WBC (4.8-10.8) K/uL RBC (3.80-5.20) Mil/uL Hgb (11.0-16.0) g/dL Hct (34.0-47.0) % MCV (81.0-99.0) fL MCH (27.0-31.0) pg MCHC (33.0-37.0) g/dL RDW (11.5-14.5) % Plt Count (130-400) K/uL MPV (7.2-11.7) fL Neut % (Auto) (50.0-75.0) % Lymph % (Auto) (20.0-40.0) % [place] % (Auto) (0.0-10.0) % Eos % (Auto) (0.0-4.0) % Baso % (Auto) (0.0-2.0) % Neut # (1.8-7.0) K/uL Lymph # (1.0-4.3) K/uL [place] # (0.0-0.8) K/uL Eos # (0.0-0.7) K/uL Baso # (0.0-0.2) K/uL Neutrophils % (Manual) (50-75) % Lymphocytes % (Manual) (20-40) % Monocytes % (Manual) (0-10) % Platelet Estimate (NORMAL) Anisocytosis (manual) Ovalocytes Puncture Site Rb pCO2 59 H (35-45) mm/Hg pO2 60 L (80-100) mm/Hg HCO3 31.5 H (21-28) mmol/L ABG pH 7.38 (7.35-7.45) ABG Total CO2 36.7 H (22-28) mmol/L ABG O2 Saturation 95.1 (95-98) % ABG Base Excess 8.5 H (-2.0-3.0) mmol/L ABG Hemoglobin 9.1 L (11.7-17.4) g/dL ABG Carboxyhemoglobin 2.6 H (0.5-1.5) % POC ABG HHb (Measured) 4.7 (0.0-5.0) % ABG Methemoglobin 0.9 (0.0-3.0) % Reese Test Na A-a O2 Difference 437.0 mm/Hg Respiratory Index 7.3 Hgb O2 Saturation 91.8 L (95.0-98.0) % Mechanical Rate 20 FiO2 80.0 % Tidal Volume 400 PEEP 10 Sodium (132-148) mmol/L Potassium (3.6-5.2) mmol/L Chloride (98-107) mmol/L Carbon Dioxide (22-30) mmol/L Anion Gap (10-20) BUN (7-17) mg/dL Creatinine (0.7-1.2) MG/DL Est GFR ( Amer) Est GFR (Non-Af Amer) Random Glucose (65-105) mg/dL Calcium (8.6-10.4) mg/dl Phosphorus (2.5-4.5) mg/dL Magnesium (1.6-2.3) mg/dL Total Bilirubin (0.2-1.3) mg/dL AST (14-36) U/L ALT (9-52) U/L Alkaline Phosphatase (38-126) U/L Total Protein (6.3-8.3) g/dL Albumin (3.5-5.0) g/dL Globulin (2.2-3.9) gm/dL Albumin/Globulin Ratio (1.0-2.1) Fluid Source Pleural Fluid Appearance Sl cloudy (CLEAR) Fluid WBC 183.0 (0.0-300.0) /mm3 Fluid RBC 69595.0 H (0.0-0.0) /mm3 Fluid Tot Cell Count TEST NOT PERFORMED Fluid Neutrophils 78.0 H (0-0) % Fluid Lymphocytes 18.0 H (0-0) % Fld Monocyte/Macrophag 4 H (0-0) % Fluid Comment Stool Occult Blood (NEGATIVE) HSV I IgG Ab (0.00-0.89) HSV II IgG (0.00-0.89) Blood Type AB POSITIVE Antibody Screen Negative 11/25/16 Range/Units 08:57 WBC (4.8-10.8) K/uL RBC (3.80-5.20) Mil/uL Hgb (11.0-16.0) g/dL Hct (34.0-47.0) % MCV (81.0-99.0) fL MCH (27.0-31.0) pg MCHC (33.0-37.0) g/dL RDW (11.5-14.5) % Plt Count (130-400) K/uL MPV (7.2-11.7) fL Neut % (Auto) (50.0-75.0) % Lymph % (Auto) (20.0-40.0) % [place] % (Auto) (0.0-10.0) % Eos % (Auto) (0.0-4.0) % Baso % (Auto) (0.0-2.0) % Neut # (1.8-7.0) K/uL Lymph # (1.0-4.3) K/uL [place] # (0.0-0.8) K/uL Eos # (0.0-0.7) K/uL Baso # (0.0-0.2) K/uL Neutrophils % (Manual) (50-75) % Lymphocytes % (Manual) (20-40) % Monocytes % (Manual) (0-10) % Platelet Estimate (NORMAL) Anisocytosis (manual) Ovalocytes Puncture Site pCO2 (35-45) mm/Hg pO2 (80-100) mm/Hg HCO3 (21-28) mmol/L ABG pH (7.35-7.45) ABG Total CO2 (22-28) mmol/L ABG O2 Saturation (95-98) % ABG Base Excess (-2.0-3.0) mmol/L ABG Hemoglobin (11.7-17.4) g/dL ABG Carboxyhemoglobin (0.5-1.5) % POC ABG HHb (Measured) (0.0-5.0) % ABG Methemoglobin (0.0-3.0) % Reese Test A-a O2 Difference mm/Hg Respiratory Index Hgb O2 Saturation (95.0-98.0) % Mechanical Rate FiO2 % Tidal Volume PEEP Sodium (132-148) mmol/L Potassium (3.6-5.2) mmol/L Chloride (98-107) mmol/L Carbon Dioxide (22-30) mmol/L Anion Gap (10-20) BUN (7-17) mg/dL Creatinine (0.7-1.2) MG/DL Est GFR ( Amer) Est GFR (Non-Af Amer) Random Glucose (65-105) mg/dL Calcium (8.6-10.4) mg/dl Phosphorus (2.5-4.5) mg/dL Magnesium (1.6-2.3) mg/dL Total Bilirubin (0.2-1.3) mg/dL AST (14-36) U/L ALT (9-52) U/L Alkaline Phosphatase (38-126) U/L Total Protein (6.3-8.3) g/dL Albumin (3.5-5.0) g/dL Globulin (2.2-3.9) gm/dL Albumin/Globulin Ratio (1.0-2.1) Fluid Source Fluid Appearance (CLEAR) Fluid WBC (0.0-300.0) /mm3 Fluid RBC (0.0-0.0) /mm3 Fluid Tot Cell Count Fluid Neutrophils (0-0) % Fluid Lymphocytes (0-0) % Fld Monocyte/Macrophag (0-0) % Fluid Comment Stool Occult Blood (NEGATIVE) HSV I IgG Ab 3.70 H (0.00-0.89) HSV II IgG 0.16 (0.00-0.89) Blood Type Antibody Screen Laboratory Results - last 24 hr 11/25/16 11/26/16 11/26/16 08:57 12:17 18:07 WBC RBC Hgb Hct MCV MCH MCHC RDW Plt Count MPV Neut % (Auto) Lymph % (Auto) [place] % (Auto) Eos % (Auto) Baso % (Auto) Neut # Lymph # [place] # Eos # Baso # Neutrophils % (Manual) Lymphocytes % (Manual) Monocytes % (Manual) Platelet Estimate Anisocytosis (manual) Ovalocytes Puncture Site pCO2 pO2 HCO3 ABG pH ABG Total CO2 ABG O2 Saturation ABG Base Excess ABG Hemoglobin ABG Carboxyhemoglobin POC ABG HHb (Measured) ABG Methemoglobin Reese Test A-a O2 Difference Respiratory Index Hgb O2 Saturation Mechanical Rate FiO2 Tidal Volume PEEP Sodium Potassium Chloride Carbon Dioxide Anion Gap BUN Creatinine Est GFR ( Amer) Est GFR (Non-Af Amer) Random Glucose Calcium Phosphorus Magnesium Total Bilirubin AST ALT Alkaline Phosphatase Total Protein Albumin Globulin Albumin/Globulin Ratio Fluid Source Pleural Fluid Appearance Sl cloudy Fluid WBC 183.0 Fluid RBC 149[address].0 H Fluid Tot Cell Count TEST NOT PERFORMED Fluid Neutrophils 78.0 H Fluid Lymphocytes 18.0 H Fld Monocyte/Macrophag 4 H Fluid Comment Stool Occult Blood HSV I IgG Ab 3.70 H HSV II IgG 0.16 Blood Type AB POSITIVE Antibody Screen Negative 11/27/16 11/27/16 11/27/16 05:29 06:31 06:33 WBC 18.3 H RBC 3.04 L Hgb 9.0 L Hct 27.2 L MCV 89.3 MCH 29.8 MCHC 33.3 RDW 15.8 H Plt Count 166 MPV 9.4 Neut % (Auto) 94.1 H Lymph % (Auto) 2.5 L [place] % (Auto) 3.1 Eos % (Auto) 0.0 Baso % (Auto) 0.3 Neut # 17.2 H Lymph # 0.5 L [place] # 0.6 Eos # 0.0 Baso # 0.1 Neutrophils % (Manual) 94 H Lymphocytes % (Manual) 4 L Monocytes % (Manual) 2 Platelet Estimate Normal Anisocytosis (manual) Slight Ovalocytes Slight Puncture Site Rb pCO2 59 H pO2 60 L HCO3 31.5 H ABG pH 7.38 ABG Total CO2 36.7 H ABG O2 Saturation 95.1 ABG Base Excess 8.5 H ABG Hemoglobin 9.1 L ABG Carboxyhemoglobin 2.6 H POC ABG HHb (Measured) 4.7 ABG Methemoglobin 0.9 Reese Test Na A-a O2 Difference 437.0 Respiratory Index 7.3 Hgb O2 Saturation 91.8 L Mechanical Rate 20 FiO2 80.0 Tidal Volume 400 PEEP 10 Sodium 159 H Potassium 3.4 L Chloride 116 H Carbon Dioxide 36 H Anion Gap 10 BUN 42 H Creatinine 0.8 Est GFR ( Amer) > 60 Est GFR (Non-Af Amer) > 60 Random Glucose 140 H Calcium 7.9 L Phosphorus 2.6 Magnesium 2.3 Total Bilirubin 1.1 AST 237 H ALT 214 H D Alkaline Phosphatase 62 Total Protein 4.8 L Albumin 2.4 L Globulin 2.4 Albumin/Globulin Ratio 1.0 Fluid Source Fluid Appearance Fluid WBC Fluid RBC Fluid Tot Cell Count Fluid Neutrophils Fluid Lymphocytes Fld Monocyte/Macrophag Fluid Comment Stool Occult Blood HSV I IgG Ab HSV II IgG Blood Type Antibody Screen 11/27/16 07:41 WBC RBC Hgb Hct MCV MCH MCHC RDW Plt Count MPV Neut % (Auto) Lymph % (Auto) [place] % (Auto) Eos % (Auto) Baso % (Auto) Neut # Lymph # [place] # Eos # Baso # Neutrophils % (Manual) Lymphocytes % (Manual) Monocytes % (Manual) Platelet Estimate Anisocytosis (manual) Ovalocytes Puncture Site pCO2 pO2 HCO3 ABG pH ABG Total CO2 ABG O2 Saturation ABG Base Excess ABG Hemoglobin ABG Carboxyhemoglobin POC ABG HHb (Measured) ABG Methemoglobin Reese Test A-a O2 Difference Respiratory Index Hgb O2 Saturation Mechanical Rate FiO2 Tidal Volume PEEP Sodium Potassium Chloride Carbon Dioxide Anion Gap BUN Creatinine Est GFR ( Amer) Est GFR (Non-Af Amer) Random Glucose Calcium Phosphorus Magnesium Total Bilirubin AST ALT Alkaline Phosphatase Total Protein Albumin Globulin Albumin/Globulin Ratio Fluid Source Fluid Appearance Fluid WBC Fluid RBC Fluid Tot Cell Count Fluid Neutrophils Fluid Lymphocytes Fld Monocyte/Macrophag Fluid Comment Stool Occult Blood Negative HSV I IgG Ab HSV II IgG Blood Type Antibody Screen Attending/Attestation - Attestation I have personally seen and examined this patient.: Yes I have fully participated in the care of the patient.: Yes I have reviewed all pertinent clinical information: Yes Notes (Text): 11/27/16 16:58 patient seen and examined, not improving, again needs 100% fio2 and does not tolerated decreasing O2. wbc decreasing Renal function holding, replace K, restart lasix drip adn free water given high Na, last night one tarry stool. multifocal atrial tachycardia given hypoxia. spoke to mother, son and one sister about hospital course and poor prognosis
--- NOTE | 2016-11-27 12:08 | RAD ---
HISTORY: intubation COMPARISON: 11/26/2016. FINDINGS: LUNGS: Reticular nodular opacities seen throughout both lungs. PLEURA: Mild right-sided pleural effusion. CARDIOVASCULAR: Stable cardiomediastinal silhouette. OSSEOUS STRUCTURES: No significant abnormalities. VISUALIZED UPPER ABDOMEN: Suboptimally seen. Surgical clips noted in the mid abdomen. OTHER FINDINGS: ETT with the distal tip above the tracheal bifurcation. Feeding tube seen below the diaphragm. Presumed right-sided vascular catheter with the distal tip of the catheter overlying the projection of the SVC/right atrial junction. Right-sided chest tube with the tip in the right apex. IMPRESSION: Reticular nodular opacities seen throughout both lungs slightly increased from prior radiograph from 11/26/2016. Other findings as above.
--- NOTE | 2016-11-27 12:53 | CP.PCM.CON ---
History of Present Illness - History of Present Illness History of Present Illness: Palliative consult requested raman Bro Reason: gals of care discussion Patient is a 51 yo lad admitted on 11/06/2016 with diffuse pressuring abdominal pain X [address] abdomen showed partial SBO, pulmonary fibrosis, and anasarca. Patient underwent the VATS procedure and the chest tube placement. The lung biopsy + for organizing pneumonia. PMH: SBO with surgery 2 months ago, anxiety, bipolar disorder, depression, emphysema Soc. Hx: single, lives at home Fam Hx: unknown Labs : WBC 18.3, Hb 9.0, BUN 42, Student Records Specialist 0.8,UTI + yeast and Klebsi Review of Systems - Review of Systems Systems not reviewed;Unavailable: Intubated Past Patient History - Infectious Disease Hx of Infectious Diseases: None - Past Medical History & Family History Past Medical History?: Yes - Past Social History Smoking Status: Heavy Smoker > 10 Cigarettes Daily - CARDIAC Hx Cardiac Disorders: No Hx Heart Attack: Yes (x3 as per patient) - PULMONARY Hx Chronic Obstructive Pulmonary Disease (COPD): Yes Hx Emphysema: Yes - NEUROLOGICAL HX Cerebrovascular Accident: Yes (x2) - HEENT Hx HEENT Problems: No - RENAL Hx Chronic Kidney Disease: No - ENDOCRINE/METABOLIC Hx Endocrine Disorders: Yes Hx Systemic Lupus Erythematosus: Yes - HEMATOLOGICAL/ONCOLOGICAL Hx Blood Disorders: No - INTEGUMENTARY Hx Dermatological Problems: No - MUSCULOSKELETAL/RHEUMATOLOGICAL Hx Falls: No - GASTROINTESTINAL Hx Gastrointestinal Disorders: Yes Hx Bowel Surgery: Yes (August 2016) Hx Gastroesophageal Reflux: Yes Other/Comment: GERD - GENITOURINARY/GYNECOLOGICAL Hx Genitourinary Disorders: Yes Hx Incontinence: Yes - PSYCHIATRIC Hx Anxiety: Yes Hx Bipolar Disorder: Yes Hx Depression: Yes Hx Substance Use: No - SURGICAL HISTORY Hx Cholecystectomy: Yes - ANESTHESIA Hx Anesthesia: Yes Hx Anesthesia Reactions: No Hx Malignant Hyperthermia: No Meds Allergies/Adverse Reactions: Allergies Allergy/AdvReac Type Severity Reaction Status Date / Time No Known Allergies Allergy Verified 11/06/16 10:12 - Medications Medications: Current Medications Albuterol/Ipratropium (Duoneb 3 Mg/0.5 Mg (3 Ml) Ud) 3 ml INH RQ6 [facility] Last Admin: 11/27/16 07:27 Dose: 3 ml Aspirin (Aspirin Chewable) 81 mg PO DAILY [facility] Last Admin: 11/23/16 09:23 Dose: Not Given Clopidogrel Bisulfate (Plavix) 75 mg PO DAILY [facility] Last Admin: 11/23/16 10:33 Dose: Not Given Enoxaparin Sodium (Lovenox) 40 mg SC DAILY [facility] Last Admin: 11/24/16 09:49 Dose: 40 mg Fentanyl Citrate 2,500 mcg/ (Sodium Chloride) 250 mls @ 70 mls/hr IV .Q3H35M [place]; 10 MCG/KG/HR PRN Reason: Protocol Last Admin: 11/27/16 07:56 Dose: 28 mls/hr Midazolam HCl 100 mg/ Sodium (Chloride) 100 mls @ 1.4 mls/hr IV .Q24H PRN; Protocol; 0.02 MG/KG/HR PRN Reason: FOLLOW PROTOCOL Last Titration: 11/26/16 23:53 Dose: 0.04 mg/kg/hr Levetiracetam 500 mg/ Sodium (Chloride) 105 mls @ 420 mls/hr IVPB Q12H [facility] Last Admin: 11/27/16 10:27 Dose: 420 mls/hr Imipenem/Cilastatin Sodium 500 (mg/ Sodium Chloride) 100 mls @ 100 mls/hr IVPB Q8H [facility] Last Admin: 11/27/16 05:55 Dose: 100 mls/hr Phenylephrine HCl 30 mg/ (Sodium Chloride) 253 mls @ 10.12 mls/hr IV .Q24H PRN ; Protocol; 20 MCG/MIN PRN Reason: TITRATE PER MD ORDER Last Admin: 11/27/16 06:33 Dose: 10 mls/hr Acyclovir 500 mg/ Sodium (Chloride) 100 mls @ 100 mls/hr IV Q8H [facility] Last Admin: 11/27/16 09:00 Dose: 100 mls/hr Furosemide 100 mg/ Dextrose 100 mls @ 10 mls/hr IV .Q10H [place]; 10 MG/HR PRN Reason: Protocol Last Admin: 11/27/16 10:29 Dose: 10 mls/hr Propofol (Diprivan) 100 mls @ 1.901 mls/hr IV .Q24H PRN; Protocol; 5 MCG/KG/MIN PRN Reason: TITRATE PER MD ORDER Last Admin: 11/27/16 09:48 Dose: 1.901 mls/hr Potassium Chloride (Potassium Chloride 20 Meq/100 Ml) 100 mls @ 50 mls/hr IVPB Q2 [facility] Stop: 11/27/16 15:59 Last Admin: 11/27/16 10:36 Dose: 50 mls/hr Methylprednisolone (Solu-Medrol) 60 mg IV Q8 [facility] Last Admin: 11/27/16 05:56 Dose: 60 mg Pantoprazole Sodium (Protonix Inj) 40 mg IVP Q12H [facility] Last Admin: 11/27/16 06:06 Dose: 40 mg Sucralfate (Carafate Oral Susp) 1 gm PO Q6H [facility] Last Admin: 11/27/16 06:06 Dose: 1 gm Physical Exam - Constitutional Appears: Chronically Ill - Head Exam Head Exam: ATRAUMATIC - Eye Exam Eye Exam: Normal appearance Pupil Exam: NORMAL ACCOMODATION - ENT Exam ENT Exam: Mucous Membranes Dry - Neck Exam Neck exam: Positive for: Normal Inspection - Respiratory Exam Respiratory Exam: Decreased Breath Sounds Additional comments: On MV - Cardiovascular Exam Cardiovascular Exam: REGULAR RHYTHM Additional comments: On Pressors - GI/Abdominal Exam GI & Abdominal Exam: Diminished Bowel Sounds - Rectal Exam Rectal Exam: Deferred - Extremities Exam Extremities exam: Positive for: normal inspection - Back Exam Back exam: NORMAL INSPECTION - Neurological Exam Neurological exam: Alert, Altered - Psychiatric Exam Psychiatric exam: Flat Affect - Skin Skin Exam: Normal Color Results - Vital Signs Recent Vital Signs: Last Vital Signs Temp 98.9 F 11/27/16 08:00 Pulse 77 11/27/16 10:00 Resp 25 H 11/27/16 10:00 BP 109/52 L 11/27/16 10:29 Pulse Ox 98 11/27/16 10:00 - Labs Result Diagrams: 11/27/16 06:31 11/27/16 06:33 Labs: Laboratory Results - last 24 hr 11/26/16 11/26/16 11/26/16 12:14 12:17 18:07 WBC RBC Hgb Hct MCV MCH MCHC RDW Plt Count MPV Neut % (Auto) Lymph % (Auto) [place] % (Auto) Eos % (Auto) Baso % (Auto) Neut # Lymph # [place] # Eos # Baso # Neutrophils % (Manual) Lymphocytes % (Manual) Monocytes % (Manual) Platelet Estimate Anisocytosis (manual) Ovalocytes PT 15.0 H INR 1.3 APTT 28 Puncture Site pCO2 pO2 HCO3 ABG pH ABG Total CO2 ABG O2 Saturation ABG Base Excess ABG Hemoglobin ABG Carboxyhemoglobin POC ABG HHb (Measured) ABG Methemoglobin Reese Test A-a O2 Difference Respiratory Index Hgb O2 Saturation Mechanical Rate FiO2 Tidal Volume PEEP Sodium Potassium Chloride Carbon Dioxide Anion Gap BUN Creatinine Est GFR ( Amer) Est GFR (Non-Af Amer) Random Glucose Calcium Phosphorus Magnesium Total Bilirubin AST ALT Alkaline Phosphatase Total Protein Albumin Globulin Albumin/Globulin Ratio Fluid Source Pleural Fluid Appearance Sl cloudy Fluid WBC 183.0 Fluid RBC 09419.0 H Fluid Tot Cell Count TEST NOT PERFORMED Fluid Neutrophils 78.0 H Fluid Lymphocytes 18.0 H Fld Monocyte/Macrophag 4 H Fluid Comment Stool Occult Blood Blood Type AB POSITIVE Antibody Screen Negative 11/27/16 11/27/16 11/27/16 05:29 06:31 06:33 WBC 18.3 H RBC 3.04 L Hgb 9.0 L Hct 27.2 L MCV 89.3 MCH 29.8 MCHC 33.3 RDW 15.8 H Plt Count 166 MPV 9.4 Neut % (Auto) 94.1 H Lymph % (Auto) 2.5 L [place] % (Auto) 3.1 Eos % (Auto) 0.0 Baso % (Auto) 0.3 Neut # 17.2 H Lymph # 0.5 L [place] # 0.6 Eos # 0.0 Baso # 0.1 Neutrophils % (Manual) 94 H Lymphocytes % (Manual) 4 L Monocytes % (Manual) 2 Platelet Estimate Normal Anisocytosis (manual) Slight Ovalocytes Slight PT INR APTT Puncture Site Rb pCO2 59 H pO2 60 L HCO3 31.5 H ABG pH 7.38 ABG Total CO2 36.7 H ABG O2 Saturation 95.1 ABG Base Excess 8.5 H ABG Hemoglobin 9.1 L ABG Carboxyhemoglobin 2.6 H POC ABG HHb (Measured) 4.7 ABG Methemoglobin 0.9 Reese Test Na A-a O2 Difference 437.0 Respiratory Index 7.3 Hgb O2 Saturation 91.8 L Mechanical Rate 20 FiO2 80.0 Tidal Volume 400 PEEP 10 Sodium 159 H Potassium 3.4 L Chloride 116 H Carbon Dioxide 36 H Anion Gap 10 BUN 42 H Creatinine 0.8 Est GFR ( Amer) > 60 Est GFR (Non-Af Amer) > 60 Random Glucose 140 H Calcium 7.9 L Phosphorus 2.6 Magnesium 2.3 Total Bilirubin 1.1 AST 237 H ALT 214 H D Alkaline Phosphatase 62 Total Protein 4.8 L Albumin 2.4 L Globulin 2.4 Albumin/Globulin Ratio 1.0 Fluid Source Fluid Appearance Fluid WBC Fluid RBC Fluid Tot Cell Count Fluid Neutrophils Fluid Lymphocytes Fld Monocyte/Macrophag Fluid Comment Stool Occult Blood Blood Type Antibody Screen 11/27/16 07:41 WBC RBC Hgb Hct MCV MCH MCHC RDW Plt Count MPV Neut % (Auto) Lymph % (Auto) [place] % (Auto) Eos % (Auto) Baso % (Auto) Neut # Lymph # [place] # Eos # Baso # Neutrophils % (Manual) Lymphocytes % (Manual) Monocytes % (Manual) Platelet Estimate Anisocytosis (manual) Ovalocytes PT INR APTT Puncture Site pCO2 pO2 HCO3 ABG pH ABG Total CO2 ABG O2 Saturation ABG Base Excess ABG Hemoglobin ABG Carboxyhemoglobin POC ABG HHb (Measured) ABG Methemoglobin Reese Test A-a O2 Difference Respiratory Index Hgb O2 Saturation Mechanical Rate FiO2 Tidal Volume PEEP Sodium Potassium Chloride Carbon Dioxide Anion Gap BUN Creatinine Est GFR ( Amer) Est GFR (Non-Af Amer) Random Glucose Calcium Phosphorus Magnesium Total Bilirubin AST ALT Alkaline Phosphatase Total Protein Albumin Globulin Albumin/Globulin Ratio Fluid Source Fluid Appearance Fluid WBC Fluid RBC Fluid Tot Cell Count Fluid Neutrophils Fluid Lymphocytes Fld Monocyte/Macrophag Fluid Comment Stool Occult Blood Negative Blood Type Antibody Screen Assessment & Plan - Assessment and Plan (Free Text) Assessment: Palliative consult for goals of care. Code status Full Code. No advance drective on chart. PPS 10%. CHUY unobtainable from patient due to condition. ROS obtained from the nursing. Total time spent 80 min. Patient is intubted on MV support, responsive to verbal and tactile stimuli. Patient is lethargic and attention span is short. BP 109/58, HR 64, supported by Pressors. Skin is pale, intact. Fle at bed side, urine clear. Patient is cachectic. Nutrition provided via NGT. I called patient's son Mr Mendiola and family meeting for goals of care discussion was scheduled for 2 pm today. Impression * Patient looks chronically ill * Patient is unable kal eat, speak, and breath on her own due to progressive chronic condition * Patient has Hx of MV in the past * Severely damaged quality of life * Prognosis uncertain * Patient is unable to discuss goals of care due to condition * Patient's wishes for the end of life care are not known Suggestion * Code status will be discussed today when he son comes * Promote supportive care * If patient does not tolerate weaning well the trach may be a way of providing longterm vent support After the family meeting, my noes will be updated. Thank you for consulting Palliative services
--- NOTE | 2016-11-27 13:11 | CP.PCM.PN ---
Subjective - Date & Time of Evaluation Date of Evaluation: 11/27/16 Time of Evaluation: 06:50 - Subjective Subjective: Surgery progress note for Dr. Caraballo and Dr. Chan Pt s/e at bedside this AM. NAEO. Patient is alert and interactive today, states that she is not in any pain, would like something to drink. Patient still on mechanical ventilation and pressers with stable vitals Objective - Vital Signs/Intake and Output Vital Signs (last 24 hours): Temp Pulse Resp BP Pulse Ox 98.9 F 77 25 H 109/52 L 98 11/27/16 08:00 11/27/16 10:00 11/27/16 10:00 11/27/16 10:29 11/27/16 10:00 Intake and Output: 11/27/16 11/27/16 06:59 18:59 Intake Total 1392.6 254.7 Output Total 850 270 Balance 542.6 -15.3 - Medications Medications: Current Medications Albuterol/Ipratropium (Duoneb 3 Mg/0.5 Mg (3 Ml) Ud) 3 ml INH RQ6 [facility] Last Admin: 11/27/16 07:27 Dose: 3 ml Aspirin (Aspirin Chewable) 81 mg PO DAILY [facility] Last Admin: 11/23/16 09:23 Dose: Not Given Clopidogrel Bisulfate (Plavix) 75 mg PO DAILY [facility] Last Admin: 11/23/16 10:33 Dose: Not Given Enoxaparin Sodium (Lovenox) 40 mg SC DAILY [facility] Last Admin: 11/24/16 09:49 Dose: 40 mg Fentanyl Citrate 2,500 mcg/ (Sodium Chloride) 250 mls @ 70 mls/hr IV .Q3H35M [facility]; 10 MCG/KG/HR PRN Reason: Protocol Last Admin: 11/27/16 07:56 Dose: 28 mls/hr Midazolam HCl 100 mg/ Sodium (Chloride) 100 mls @ 1.4 mls/hr IV .Q24H PRN; Protocol; 0.02 MG/KG/HR PRN Reason: FOLLOW PROTOCOL Last Titration: 11/26/16 23:53 Dose: 0.04 mg/kg/hr Levetiracetam 500 mg/ Sodium (Chloride) 105 mls @ 420 mls/hr IVPB Q12H [facility] Last Admin: 11/27/16 10:27 Dose: 420 mls/hr Imipenem/Cilastatin Sodium 500 (mg/ Sodium Chloride) 100 mls @ 100 mls/hr IVPB Q8H [facility] Last Admin: 11/27/16 05:55 Dose: 100 mls/hr Phenylephrine HCl 30 mg/ (Sodium Chloride) 253 mls @ 10.12 mls/hr IV .Q24H PRN ; Protocol; 20 MCG/MIN PRN Reason: TITRATE PER MD ORDER Last Admin: 11/27/16 06:33 Dose: 10 mls/hr Acyclovir 500 mg/ Sodium (Chloride) 100 mls @ 100 mls/hr IV Q8H [facility] Last Admin: 11/27/16 09:00 Dose: 100 mls/hr Furosemide 100 mg/ Dextrose 100 mls @ 10 mls/hr IV .Q10H [facility]; 10 MG/HR PRN Reason: Protocol Last Admin: 11/27/16 10:29 Dose: 10 mls/hr Propofol (Diprivan) 100 mls @ 1.901 mls/hr IV .Q24H PRN; Protocol; 5 MCG/KG/MIN PRN Reason: TITRATE PER MD ORDER Last Admin: 11/27/16 09:48 Dose: 1.901 mls/hr Potassium Chloride (Potassium Chloride 20 Meq/100 Ml) 100 mls @ 50 mls/hr IVPB Q2 [facility] Stop: 11/27/16 15:59 Last Admin: 11/27/16 10:36 Dose: 50 mls/hr Methylprednisolone (Solu-Medrol) 60 mg IV Q8 [facility] Last Admin: 11/27/16 05:56 Dose: 60 mg Pantoprazole Sodium (Protonix Inj) 40 mg IVP Q12H [facility] Last Admin: 11/27/16 06:06 Dose: 40 mg Sucralfate (Carafate Oral Susp) 1 gm PO Q6H [facility] Last Admin: 11/27/16 06:06 Dose: 1 gm - Labs Labs: 11/27/16 06:31 11/27/16 06:33 PT 15.0 SECONDS (9.7-12.2) H 11/26/16 12:14 INR 1.3 11/26/16 12:14 APTT 28 SECONDS (21-34) 11/26/16 12:14 - Constitutional Appears: Non-toxic, No Acute Distress - Head Exam Head Exam: ATRAUMATIC, NORMOCEPHALIC - Eye Exam Eye Exam: Normal appearance. absent: Conjunctival injection, Scleral icterus - ENT Exam ENT Exam: Mucous Membranes Moist Additional comments: ET tube inserted - Respiratory Exam Respiratory Exam: absent: Accessory Muscle Use, Respiratory Distress Additional comments: Mechanically ventilated - GI/Abdominal Exam GI & Abdominal Exam: Soft, Tenderness (Tender to palpation most in the RUQ and epigastric area). absent: Distended - Extremities Exam Extremities Exam: absent: Calf Tenderness, Pedal Edema - Neurological Exam Neurological Exam: Awake, Oriented x3 - Psychiatric Exam Psychiatric exam: Normal Affect, Normal Mood - Skin Skin Exam: Dry, Normal Color, Warm Assessment and Plan - Assessment and Plan (Free Text) Assessment: 51F with pulmonary fibrosis s/p R VATS with wedge resection & CT placement; POD# 10 & abdominal pain with GI bleed work up H/H improved since yesterday Plan: - Keep CT on sxn while on the vent - Continue to trend H/H - Monitor output--chest tube, OGT, and urine - F/U GI recs--currently not planning colonoscopy d/t instability - Consider CT scan of abdomen and pelvis with PO contrast when patient is stable enough to tolerate it. - Follow up discussion of long-term plans with family d/w Dr. Chan & Dr. Caraballo
--- NOTE | 2016-11-27 14:15 | CP.PCM.PN ---
Subjective - Date & Time of Evaluation Date of Evaluation: 11/27/16 Time of Evaluation: 14:12 - Subjective Subjective: In ICU Tarry stool reported by RN, stool OB negative x 2. No drop in Hgb since transfused PRBCs. Family contemplating terminal wean. Objective - Vital Signs/Intake and Output Vital Signs (last 24 hours): Temp Pulse Resp BP Pulse Ox 98.1 F 85 25 H 98/67 L 97 11/27/16 12:00 11/27/16 13:00 11/27/16 13:00 11/27/16 13:00 11/27/16 13:00 Intake and Output: 11/27/16 11/27/16 06:59 18:59 Intake Total 1392.6 511.6 Output Total 850 920 Balance 542.6 -408.4 - Medications Medications: Current Medications Albuterol/Ipratropium (Duoneb 3 Mg/0.5 Mg (3 Ml) Ud) 3 ml INH RQ6 [facility] Last Admin: 11/27/16 13:21 Dose: 3 ml Aspirin (Aspirin Chewable) 81 mg PO DAILY [facility] Last Admin: 11/23/16 09:23 Dose: Not Given Clopidogrel Bisulfate (Plavix) 75 mg PO DAILY [facility] Last Admin: 11/23/16 10:33 Dose: Not Given Enoxaparin Sodium (Lovenox) 40 mg SC DAILY [facility] Last Admin: 11/24/16 09:49 Dose: 40 mg Fentanyl Citrate 2,500 mcg/ (Sodium Chloride) 250 mls @ 70 mls/hr IV .Q3H35M [facility]; 10 MCG/KG/HR PRN Reason: Protocol Last Admin: 11/27/16 07:56 Dose: 28 mls/hr Midazolam HCl 100 mg/ Sodium (Chloride) 100 mls @ 1.4 mls/hr IV .Q24H PRN; Protocol; 0.02 MG/KG/HR PRN Reason: FOLLOW PROTOCOL Last Titration: 11/26/16 23:53 Dose: 0.04 mg/kg/hr Levetiracetam 500 mg/ Sodium (Chloride) 105 mls @ 420 mls/hr IVPB Q12H [facility] Last Admin: 11/27/16 10:27 Dose: 420 mls/hr Imipenem/Cilastatin Sodium 500 (mg/ Sodium Chloride) 100 mls @ 100 mls/hr IVPB Q8H [facility] Last Admin: 11/27/16 05:55 Dose: 100 mls/hr Phenylephrine HCl 30 mg/ (Sodium Chloride) 253 mls @ 10.12 mls/hr IV .Q24H PRN ; Protocol; 20 MCG/MIN PRN Reason: TITRATE PER MD ORDER Last Admin: 11/27/16 06:33 Dose: 10 mls/hr Acyclovir 500 mg/ Sodium (Chloride) 100 mls @ 100 mls/hr IV Q8H [facility] Last Admin: 11/27/16 09:00 Dose: 100 mls/hr Furosemide 100 mg/ Dextrose 100 mls @ 10 mls/hr IV .Q10H [facility]; 10 MG/HR PRN Reason: Protocol Last Admin: 11/27/16 10:29 Dose: 10 mls/hr Propofol (Diprivan) 100 mls @ 1.901 mls/hr IV .Q24H PRN; Protocol; 5 MCG/KG/MIN PRN Reason: TITRATE PER MD ORDER Last Admin: 11/27/16 09:48 Dose: 1.901 mls/hr Potassium Chloride (Potassium Chloride 20 Meq/100 Ml) 100 mls @ 50 mls/hr IVPB Q2 [facility] Stop: 11/27/16 15:59 Last Admin: 11/27/16 14:03 Dose: 50 mls/hr Methylprednisolone (Solu-Medrol) 60 mg IV Q8 [facility] Last Admin: 11/27/16 14:03 Dose: 60 mg Pantoprazole Sodium (Protonix Inj) 40 mg IVP Q12H [facility] Last Admin: 11/27/16 06:06 Dose: 40 mg Sucralfate (Carafate Oral Susp) 1 gm PO Q6H [facility] Last Admin: 11/27/16 14:04 Dose: 1 gm - Labs Labs: 11/27/16 06:31 11/27/16 06:33 PT 15.0 SECONDS (9.7-12.2) H 11/26/16 12:14 INR 1.3 11/26/16 12:14 APTT 28 SECONDS (21-34) 11/26/16 12:14 - Constitutional Appears: Cachectic, Chronically Ill - Eye Exam Eye Exam: absent: Scleral icterus - ENT Exam Additional comments: ETT and NGTube. Bilious drainage fron NGT - Respiratory Exam Respiratory Exam: Decreased Breath Sounds - Cardiovascular Exam Cardiovascular Exam: REGULAR RHYTHM. absent: Tachycardia - GI/Abdominal Exam GI & Abdominal Exam: Guarding (RUQ tenderness), Soft, Tenderness. absent: Organomegaly Assessment and Plan (1) Acute respiratory failure with hypoxia Assessment & Plan: Management per ICU team. Pulmonary infiltrates on CXR. On Vent Status: Acute (2) Small bowel obstruction Status: Acute (3) GI bleeding Assessment & Plan: Subsiding. Off anticoagulants. Monitor Hgb Would not subject patient to colonoscopy- too ill, high risk:benefit , especially with stable Hgb and probable DNR or terminal wean to be decided by family. Discussed with RN and patient's daughter. Status: Acute
[2016-11-27 16:01] LABS: SEROGROUP 1 <1:16 titer (<1:16)
--- NOTE | 2016-11-27 16:09 | US ---
HISTORY: ELEVATED LFT COMPARISON: CT from 09/22/2016. TECHNIQUE: Sonographic evaluation of the abdomen. FINDINGS: LIVER: Measures 14.4 cm. Increase echogenicity of the liver parenchyma. No intrahepatic bile duct dilatation. GALLBLADDER: Not seen. COMMON BILE DUCT: Measures 3-4 mm. No stones. No dilatation. PANCREAS: Limited evaluation. RIGHT KIDNEY: Measures 11.8 x 4.9 x 5.9cm. Normal echogenicity. No calculus, mass, or hydronephrosis. Echogenic lesion seen in the upper pole of the right kidney measuring approximately 1.3 centimeter. This was not clearly seen in the noncontrast CT from 09/22/2016. LEFT KIDNEY: Measures 13.4 x 5.6 x 5.6cm. Normal echogenicity. No calculus, mass, or hydronephrosis. SPLEEN: Normal in size and contour. No mass. AORTA: No aneurysmal dilatation within the visualized segments of the aorta. IVC: The visualized portions of the IVC appear unremarkable. OTHER FINDINGS: The visualized segments of the portal vein appear patent. IMPRESSION: Heterogeneous echotexture of the hepatic parenchyma could be due to hepatic steatosis versus parenchymal disease. If indicated, MRI can be obtained for better evaluation. 1.3 centimeter echogenic lesion seen in the upper pole of the right kidney suboptimally evaluated. Contrast-enhanced CT or MRI should be obtained. Differential diagnosis includes angiomyolipoma.
[2016-11-27 20:18] LABS: C. PNEUMONIAE IGA <1:16 (<1:16); C. PNEUMONIAE IGG <1:64 (<1:64); C. PNEUMONIAE IGM <1:10 (<1:10); C. PSITTACI IGA <1:16 (<1:16); C. PSITTACI IGG <1:64 (<1:64); C. PSITTACI IGM <1:10 (<1:10); C. TRACHOMATIS IGA <1:16 (<1:16); C. TRACHOMATIS IGG <1:64 (<1:64); C. TRACHOMATIS IGM <1:10 (<1:10)
--- NOTE | 2016-11-27 20:55 | CP.PCM.PN ---
Subjective - Date & Time of Evaluation Date of Evaluation: 11/27/16 Time of Evaluation: 20:55 - Subjective Subjective: CHIEF COMPLAINTS TODAY : patient in ICU, MAXIMUM TEMPERATURE 98.9, blood pressure 109/52 -Remains intubated on ventilat support Requiring high pulmonary support S/P RLLWEDGE BIOPSY- # day 9 11/17/16 Biopsy report right lower lobe; organizing pneumonia with focal intra- alveolar hemosiderin TARRY STOOL REPORTED BY RN. H/H STABLE ROS. responsive HEENT : N. Resp : No cough, +ve rhonchi , no pleuritic CP ,or hemoptysis .RT CHEST TUBE IN PLACE Cardio : No anginal CP, PND, orthopnea, palpitation GI : NO n/v ,diarrhea or GI bleeding . CANVAS CUTTER : No headache, vertigo, focal deficit / Musculoskel : No joint swelling , Derm : No rash Psych : Normal affect. Ext : No swelling ,calf pain PE. Pt. ON VENTILATOR, RT.IJ CATHETER IN PLACE V.S As noted in the chart Head ,ear nose,throat and eyes : Normal. Neck : Supple with normal carotids. Lungs: BILATERAL RHONCHI. RT. CT IN PLACE DRAINING SEROSANGUINEOUS DRAINAGE.. Heart : S1 & S2 normal with S4. No murmur. Abd : soft, with HYPOACTIVE bowel sounds. Neuro : Moves all ext. with no localized deficit. Ext : No edema with intact pulses.Non tender calves Bilateral Venodyne. Derm : No rashes or decubitus ulcer. LABS/RADIOLOGY: 11/27/16 WBC 18.3 H&H 9.0, platelets 166 lfts increasing transaminitis AST 237, alt 214. HSV IGG TITRES HIGH ?IMMUNE cHLAMYDIA PSITTACI-NO ANTIBODY DETECTED cHLAMYDIA PNEUMONIAE- NO ANTIBODY DETECTED Stools negative for occult blood PLEURAL FLUID 11/24/ NEGATIVE GROWTH FOR 24 HOURS CMV DNA PCR <200 NOT DETECTED CHEST X-RAY 11/25/16--HAZY OPACITY RIGHT LUNG. CXR - Diffuse confluent airspace opacities B/L lungs w/prominent increased interstitial lung markings. Not sig changed vs prior study. URINE CULTURES 11/24/16 NEGATIVE GROWTH bLOOD CULTURES 11/24/16 NEGATIVE GROWTH. URINE CULTURE 11/17/16 YEAST SPECIES URINE CULTURE SENSITIVITY 11/08/16 +VE Klebsiella pneumoniae s-Cipro, Primaxin , BLOOD CULTURES 1/22 NEGATIVE FOR 48 HOURS Objective - Vital Signs/Intake and Output Vital Signs (last 24 hours): Temp Pulse Resp BP Pulse Ox 98.8 F 110 H 24 101/61 97 11/27/16 16:00 11/27/16 19:00 11/27/16 19:00 11/27/16 19:00 11/27/16 19:00 Intake and Output: 11/27/16 11/28/16 18:59 06:59 Intake Total 1017.1 51.9 Output Total 3120 Balance -2102.9 51.9 - Medications Medications: Current Medications Albuterol/Ipratropium (Duoneb 3 Mg/0.5 Mg (3 Ml) Ud) 3 ml INH RQ6 [facility] Last Admin: 11/27/16 19:44 Dose: 3 ml Aspirin (Aspirin Chewable) 81 mg PO DAILY [facility] Last Admin: 11/23/16 09:23 Dose: Not Given Clopidogrel Bisulfate (Plavix) 75 mg PO DAILY [facility] Last Admin: 11/23/16 10:33 Dose: Not Given Enoxaparin Sodium (Lovenox) 40 mg SC DAILY [facility] Last Admin: 11/24/16 09:49 Dose: 40 mg Fentanyl Citrate 2,500 mcg/ (Sodium Chloride) 250 mls @ 70 mls/hr IV .Q3H35M [facility]; 10 MCG/KG/HR PRN Reason: Protocol Last Admin: 11/27/16 17:23 Dose: 21 mls/hr Midazolam HCl 100 mg/ Sodium (Chloride) 100 mls @ 1.4 mls/hr IV .Q24H PRN; Protocol; 0.02 MG/KG/HR PRN Reason: FOLLOW PROTOCOL Last Titration: 11/26/16 23:53 Dose: 0.04 mg/kg/hr Levetiracetam 500 mg/ Sodium (Chloride) 105 mls @ 420 mls/hr IVPB Q12H [facility] Last Admin: 11/27/16 10:27 Dose: 420 mls/hr Imipenem/Cilastatin Sodium 500 (mg/ Sodium Chloride) 100 mls @ 100 mls/hr IVPB Q8H [facility] Last Admin: 11/27/16 15:30 Dose: 100 mls/hr Phenylephrine HCl 30 mg/ (Sodium Chloride) 253 mls @ 10.12 mls/hr IV .Q24H PRN ; Protocol; 20 MCG/MIN PRN Reason: TITRATE PER MD ORDER Last Titration: 11/27/16 11:00 Dose: 0 mcg/min Acyclovir 500 mg/ Sodium (Chloride) 100 mls @ 100 mls/hr IV Q8H [facility] Last Admin: 11/27/16 18:16 Dose: 100 mls/hr Furosemide 100 mg/ Dextrose 100 mls @ 10 mls/hr IV .Q10H [facility]; 10 MG/HR PRN Reason: Protocol Last Admin: 11/27/16 17:35 Dose: 10 mls/hr Propofol (Diprivan) 100 mls @ 1.901 mls/hr IV .Q24H PRN; Protocol; 5 MCG/KG/MIN PRN Reason: TITRATE PER MD ORDER Last Titration: 11/27/16 17:00 Dose: 30 mcg/kg/min Methylprednisolone (Solu-Medrol) 60 mg IV Q8 [facility] Last Admin: 11/27/16 14:03 Dose: 60 mg Pantoprazole Sodium (Protonix Inj) 40 mg IVP Q12H [facility] Last Admin: 11/27/16 18:16 Dose: 40 mg Sucralfate (Carafate Oral Susp) 1 gm PO Q6H [facility] Last Admin: 11/27/16 18:16 Dose: 1 gm - Labs Labs: 11/27/16 06:31 11/27/16 06:33 PT 15.0 SECONDS (9.7-12.2) H 11/26/16 12:14 INR 1.3 11/26/16 12:14 APTT 28 SECONDS (21-34) 11/26/16 12:14 Assessment and Plan (1) Acute respiratory failure with hypoxia Status: Acute (2) Abdominal pain Status: Acute (3) Bilateral pneumonia Status: Acute (4) COPD (chronic obstructive pulmonary disease) Status: Acute (5) Anemia Status: Acute (6) Urinary tract infection Status: Acute - Assessment and Plan (Free Text) Assessment: IMPRESSION; > RESPIRATORY FAILURE/HYPOXIA BILATERAL PNEUMONIA ATYPICAL PNEUMONIA.(HISTORY OF CHANTELL-PARAPSILOSIS PNEUMONIA SEP 2016 S/ FOB ) S/P VATS AND CT/WEDGE BX RLL -organizing pneumonia with focal intra-alveolar hemosiderin. > EXACERBATION OF COPD. > lEUKOCYTOSIS ? STEROID VS SEPSIS > ABDOMINAL PAIN -PARTIAL SMALL BOWEL OBSTRUCTION. (CT ABD /PELVIS-SEE REPORT ) HX OF EXPLORATORY LAP/LYLE AUG 2016 > UROSEPSIS +VE kLEBSIELLA PNEUMONIAE/ S/P CANDIDURIA > CHF./CAD. > ANEMIA -G I BLEEDING S/P EGD 11/25/16 >HISTORY OF SERONEGATIVE LUPUS ON PLAQUENIL. >DEPRESSION/ANXIETY. PLAN; on iv PRIMAXIN 500 MG EVERY 8 HOURLY WHILE AWAITING BLOOD CULTURES.11/25/16 ON iv ACYCLOVIR 11/24/16 off iv MICAFUNGIN 100 MG iv PIGGYBACK ONCE A DAY DAILY TO COVER FOR FUNGEMIA PATIENT HIGH-DOSE STEROIDS 11/24/16 PATIENT high-DOSE STEROIDS PER DEATH CLAIM EXAMINER AND PULMONARY. case discussed with the resident. Source of elevated transaminitis most likely drug related ? Seroquel versus Zoloft. Consider stopping them. As noted patient considered for palliative care. Talks with family in progression FAMILY CONTEMPLATING TERMINAL EXTUBATION.
[2016-11-27] MEDS ORDERED: Acetaminophen IV 1,000 MG in Premixed IV 1 EA IV ONE (22:54)
[2016-11-27 23:32] LABS: RBC URINE 1 /hpf (0-3); URINE BACTERIA RARE (<OCC); URINE BILIRUBIN NEGATIVE (NEGATIVE); URINE BLOOD NEGATIVE (NEGATIVE); URINE COLOR Straw (YELLOW); URINE GLUCOSE (UA) 1+ mg/dL (Normal); URINE KETONE NEGATIVE (NEGATIVE); URINE LEUKOCYTE ESTERASE NEG Leu/uL (Negative); URINE PROTEIN 1+ mg/dL (NEGATIVE); URINE UROBILINOGEN NORMAL mg/dL (0.2-1.0); WBC URINE < 1 /hpf (0-5)
[2016-11-28] MEDS: Albuterol-Ipratrop 3 mg / 0.5 (3 ml) UD INH SCH ×2 (01:11→07:24)
[2016-11-28] MEDS: Sucralfate 1 gm/10 ml Oral Susp UD PO SCH ×4 (01:20→18:27)
[2016-11-28] MEDS: Acyclovir 500 MG in Sodium Chloride 0.9% 100 ML IV SCH ×3 (02:54→17:39)
[2016-11-28] MEDS ORDERED: Digoxin 500 mcg/2ml (0.5 mg/2ml) Inj ONE (04:47)
[2016-11-28] MEDS: Phenylephrine 30 MG in Sodium Chloride 0.9% 250 ML IV PRN ×2 (04:50→13:29)
[2016-11-28 04:55] LABS: BASO # 0.2 K/uL (0.0-0.2); BASO % 1.3 % (0.0-2.0); HEMATOCRIT 30.8 % (34.0-47.0); LYMPH # 0.4 K/uL (1.0-4.3); LYMPH % 2.4 % (20.0-40.0); MEAN CELL VOLUME 89.8 fL (81.0-99.0); MEAN CORPUSCULAR HEMOGLOBIN 30.3 pg (27.0-31.0); MEAN CORPUSCULAR HGB CONC 33.8 g/dL (33.0-37.0); MONO # 0.4 K/uL (0.0-0.8); MONO % 2.8 % (0.0-10.0); NRBC % 0.1 % (0.0-2.0); PLATELET COUNT 123 K/uL (130-400); RED CELL DISTRIBUTION WIDTH 15.2 % (11.5-14.5); WHITE BLOOD COUNT 15.3 K/uL (4.8-10.8)
[2016-11-28 05:01] LABS: CHLORIDE 103 mmol/L (98-107); POTASSIUM 3.1 mmol/L (3.6-5.2); SODIUM 154 mmol/L (132-148)
[2016-11-28] MEDS ORDERED: Digoxin 500 mcg/2ml (0.5 mg/2ml) Inj IVP ONE ×2 (05:02)
[2016-11-28 05:03] LABS: AST/SGOT 201 U/L (14-36); BILIRUBIN,TOTAL 1.2 mg/dL (0.2-1.3); GFR AFRICAN-AMERICAN > 60
[2016-11-28 05:04] LABS: ALB/GLOB RATIO 1.7 (1.0-2.1); ALKALINE PHOSPHATASE 70 U/L (38-126); ALT/SGPT 229 U/L (9-52); BLOOD UREA NITROGEN 39 mg/dL (7-17); CALCIUM 8.1 mg/dl (8.6-10.4); GLUCOSE,RANDOM 188 mg/dL (65-105); MAGNESIUM 1.8 mg/dL (1.6-2.3); PHOSPHOROUS 3.6 mg/dL (2.5-4.5); TOTAL PROTEIN 4.6 g/dL (6.3-8.3)
[2016-11-28] MEDS ORDERED: Sodium Chloride 0.9% 250 ML IV ONE (05:06)
[2016-11-28 05:14] LABS: CARBON DIOXIDE 44 mmol/L (22-30)
[2016-11-28 05:19] VITALS: PULSE 162
[2016-11-28] MEDS: Potassium Chloride 20 mEq 100 ML IVPB SCH ×3 (05:23→08:15)
[2016-11-28 05:40] LABS: ABG ALLEN TEST POS; ABG MECHANICAL RATE 20; ARTERIAL BLOOD HGB O2 SAT 95.3 % (95.0-98.0); ATERIAL BLOOD GAS PEEP 10; CARBOXYHEMOGLOBIN 1.9 % (0.5-1.5); DRAW SITE RRAD; HHB 1.3 % (0.0-5.0); METHEMOGLOBIN 1.5 % (0.0-3.0)
[2016-11-28] MEDS: MethylPREDNISolone 40 mg Vial IV SCH ×3 (06:04→21:17)
[2016-11-28 06:38] LABS: NEUTROPHIL 96 % (50-75); REACTIVE LYMPHOCYTES 1 % (0-0); TOTAL CELLS COUNTED 100
--- NOTE | 2016-11-28 08:41 | RAD ---
HISTORY: on vent COMPARISON: 11/27/2016 FINDINGS: LUNGS: Lines and tubes in stable position. Diffuse increased interstitial lung markings bilaterally, not significantly changed. Suggestion of a small left pleural effusion. . PLEURA: As above. CARDIOVASCULAR: Cardiomegaly. OSSEOUS STRUCTURES: Degenerative changes in the spine and shoulders. VISUALIZED UPPER ABDOMEN: Normal. OTHER FINDINGS: Few scattered radiopaque densities at the left lung base. IMPRESSION: No significant interval change.
--- NOTE | 2016-11-28 09:55 | CP.PCM.PN ---
Subjective - Date & Time of Evaluation Date of Evaluation: 11/28/16 Time of Evaluation: 09:53 - Subjective Subjective: CC: Follow up GI Bleed No further melena. Hgb stable. Discussed with Critical care attending, RN, and family. LFTs up- likely drug induced Can not wean off vent No clinical evidence of bowel obstruction Objective - Vital Signs/Intake and Output Vital Signs (last 24 hours): Temp Pulse Resp BP Pulse Ox 97.9 F 73 22 111/63 100 11/28/16 08:00 11/28/16 09:00 11/28/16 09:00 11/28/16 09:00 11/28/16 09:00 Intake and Output: 11/28/16 11/28/16 06:59 18:59 Intake Total 1695.5 464.4 Output Total 3410 350 Balance -1714.5 114.4 - Medications Medications: Current Medications Acetazolamide (Diamox 500 Mg Inj) 500 mg IV Q8H [facility] Stop: 11/29/16 00:01 Last Admin: 11/28/16 08:29 Dose: 500 mg Aspirin (Aspirin Chewable) 81 mg PO DAILY [facility] Last Admin: 11/23/16 09:23 Dose: Not Given Clopidogrel Bisulfate (Plavix) 75 mg PO DAILY [facility] Last Admin: 11/23/16 10:33 Dose: Not Given Enoxaparin Sodium (Lovenox) 40 mg SC DAILY [facility] Last Admin: 11/24/16 09:49 Dose: 40 mg Fentanyl Citrate 2,500 mcg/ (Sodium Chloride) 250 mls @ 70 mls/hr IV .Q3H35M [facility]; 10 MCG/KG/HR PRN Reason: Protocol Last Admin: 11/28/16 03:57 Dose: 21 mls/hr Midazolam HCl 100 mg/ Sodium (Chloride) 100 mls @ 1.4 mls/hr IV .Q24H PRN; Protocol; 0.02 MG/KG/HR PRN Reason: FOLLOW PROTOCOL Last Titration: 11/28/16 05:15 Dose: 0 mg/kg/hr Levetiracetam 500 mg/ Sodium (Chloride) 105 mls @ 420 mls/hr IVPB Q12H [facility] Last Admin: 11/27/16 23:55 Dose: 420 mls/hr Imipenem/Cilastatin Sodium 500 (mg/ Sodium Chloride) 100 mls @ 100 mls/hr IVPB Q8H [facility] Last Admin: 11/28/16 05:59 Dose: 100 mls/hr Phenylephrine HCl 30 mg/ (Sodium Chloride) 253 mls @ 10.12 mls/hr IV .Q24H PRN ; Protocol; 20 MCG/MIN PRN Reason: TITRATE PER MD ORDER Last Titration: 11/28/16 05:42 Dose: 40 mcg/min Acyclovir 500 mg/ Sodium (Chloride) 100 mls @ 100 mls/hr IV Q8H [facility] Last Admin: 11/28/16 02:54 Dose: 100 mls/hr Propofol (Diprivan) 100 mls @ 1.901 mls/hr IV .Q24H PRN; Protocol; 5 MCG/KG/MIN PRN Reason: TITRATE PER MD ORDER Last Admin: 11/28/16 07:22 Dose: 7.604 mls/hr Potassium Chloride (Potassium Chloride 20 Meq/100 Ml) 100 mls @ 50 mls/hr IVPB Q2H [facility] Stop: 11/28/16 11:09 Last Admin: 11/28/16 08:15 Dose: 50 mls/hr Methylprednisolone (Solu-Medrol) 60 mg IV Q8 [facility] Last Admin: 11/28/16 06:04 Dose: 60 mg Pantoprazole Sodium (Protonix Inj) 40 mg IVP Q12H [facility] Last Admin: 11/28/16 06:04 Dose: 40 mg Sucralfate (Carafate Oral Susp) 1 gm PO Q6H [facility] Last Admin: 11/28/16 06:05 Dose: 1 gm - Labs Labs: 11/28/16 04:49 11/28/16 04:49 PT 15.0 SECONDS (9.7-12.2) H 11/26/16 12:14 INR 1.3 11/26/16 12:14 APTT 28 SECONDS (21-34) 11/26/16 12:14 - Constitutional Appears: Chronically Ill - Head Exam Additional comments: bitemporal wasting - ENT Exam Additional comments: NGT and ETT - Respiratory Exam Respiratory Exam: Decreased Breath Sounds - Cardiovascular Exam Cardiovascular Exam: RRR. absent: Tachycardia - GI/Abdominal Exam GI & Abdominal Exam: Soft. absent: Distended, Tenderness, Rebound Assessment and Plan (1) Acute respiratory failure with hypoxia Assessment & Plan: Unable to wean. organizing pneumonia. Pulm transplant being considered. Status: Acute (2) Small bowel obstruction Assessment & Plan: Clinically resolved. Having BMs. Nondistended. May trial feeds Status: Acute (3) GI bleeding Assessment & Plan: Stable Continue PPI Continue to hold all anticoagulants. Not a candidate for Colonoscopy in her current condition. Status: Acute (4) Elevated liver function tests Assessment & Plan: Likely drug induced Abdominal sonogram essentially WNL Monitor LFTs Status: Acute
[2016-11-28] MEDS: levETIRAcetam 500 MG in Sodium Chloride 0.9% 100 ML IVPB SCH ×2 (10:02→22:41)
--- NOTE | 2016-11-28 12:10 | CP.CCUPN ---
CCU Subjective - Physician Review Events Since Last Encounter (Free Text): 11/28/16 12:08 patient seen and examined in am, today paO2 110, highest value since initially intubated, one episode of fever last night ros unable pe: bp 104/64 mmhg, hr 88 bpm, rr 22, o2 99 % on 12 peep and 90% fio2, afebrile aaox3, writes to communicate, follows commands, very awake despite strong sedatives s1, s2 rrr abdomen soft, non tender able to move all extremities no focal neurological abnormalities skin intact a/p: pulmonary fibrosis/ILD exacerbation: decreasing fio2, tolerating 90% and will further decrease to 80% replaced K, HCO3 elevated due to contraction alkalosis from lasix, diamox X3 doses good renal function no more bleed, htc holding, phenylephrine at 40 mcg/mn, start feeds at 10 cc/hr only, do not increase one episode of fever last night, culture obtained as high as 102, wbc count decreasing cad with stent placement last summer: on plavix and aspirin Lupus Spoke to Dr. Humphries at [facility] for possible transplant, he does not recommend it at this time, neither vv echo given intubsation time. Updated mother at bedside. CCU Objective - Vital Signs / Intake & Output Vital Signs (Last 4 hours): Vital Signs Pulse Resp BP Pulse Ox 11/28/16 11:00 86 20 116/63 99 11/28/16 10:00 64 24 113/66 100 11/28/16 09:00 73 22 111/63 100 Intake and Output (Last 8hrs): Intake & Output 11/27/16 11/28/16 11/28/16 22:59 06:59 14:59 Intake Total 825.4 1125.8 974.0 Output Total 2450 2360 470 Balance -1624.6 -1234.2 504.0 Weight 130 lb 1.164 oz Intake: Intake, IV Amount 575.4 1025.8 974.0 Right Forearm 84.7 64.4 40 Right Internal Jugular 200 Right Medial Port 200 650 500 Internal Jugular Right Distal Port 21 17 Internal Jugular RT IJ TLC Distal port 2 187.6 214.4 134.0 RIJ Proximal 70 80 100 right arm 12.1 Other 250 100 Output: Chest Tube Drainage 0 10 Right Mid-Axillary Chest 0 10 Urine 2450 2350 470 Urethral (Mishra) 2450 2350 470 - Physical Exam Head: Positive for: Atraumatic, Normocephalic Pupils: Positive for: PERRL Extroacular Muscles: Positive for: EOMI Conjunctiva: Positive for: Normal Ears: Positive for: Normal Mouth: Positive for: Dry, Other (ET & OG tubes in place) Pharnyx: Positive for: Normal Nose (External): Positive for: Atraumatic Neck: Positive for: Normal Range of Motion, Trachea Midline, Other (Right IJ (- ) erythema/drainage) Respiratory/Chest: Positive for: Good Air Exchange, Wheezes (mild B/L), Decreased Breath Sounds, Rhonchi (at bases), Other (Right chest wall w/CT in place, dressing - C/D/I). Negative for: Clear to Auscultation, Respiratory Distress, Accessory Muscle Use, Rales, Retracting Cardiovascular: Positive for: Regular Rate and Rhythm, Normal S1, S2, Peripheal Pulses Present. Negative for: Murmurs, Rub, Gallop Abdomen: Negative for: Tenderness, Distention, Normal Bowel Sounds, Peritoneal Signs, Rebound, Guarding, Rovsing's Sign Present Upper Extremity: Positive for: Normal Inspection. Negative for: Cyanosis, Edema Lower Extremity: Positive for: Normal Inspection. Negative for: Edema Neurological: Positive for: Other (intubated/sedated). Negative for: GCS=15, Speech Normal Skin: Positive for: Warm, Dry, Normal Color, Pale. Negative for: Rashes Psychiatric: Negative for: Alert, Oriented x 3, Normal Insight, Normal Concentration - Medications Active Medications: Active Medications Generic Name Dose Route Start Last Admin Trade Name Jerrodq PRN Reason Stop Dose Admin Acetazolamide 500 mg 11/28/16 08:00 11/28/16 08:29 Diamox 500 Mg Inj IV 11/29/16 00:01 500 mg Q8H [facility]INA Administration Aspirin 81 mg 11/07/16 10:00 11/23/16 09:23 Aspirin Chewable PO Not Given DAILY [facility] Clopidogrel Bisulfate 75 mg 11/07/16 10:00 11/23/16 10:33 Plavix PO Not Given DAILY [facility] Enoxaparin Sodium 40 mg 11/07/16 10:00 11/24/16 09:49 Lovenox SC 40 mg DAILY [facility] Administration Fentanyl Citrate 2,500 mcg/ 250 mls @ 70 mls/hr 11/19/16 10:35 11/28/16 03:57 Sodium Chloride IV 21 mls/hr .Q3H35M [facility] Administration Protocol 10 MCG/KG/HR Midazolam HCl 100 mg/ Sodium 100 mls @ 1.4 mls/hr 11/20/16 15:00 11/28/16 05:15 Chloride IV 0 mg/kg/hr .Q24H PRN Titration FOLLOW PROTOCOL Protocol 0.02 MG/KG/HR Levetiracetam 500 mg/ Sodium 105 mls @ 420 mls/hr 11/21/16 11:00 11/28/16 10:02 Chloride IVPB 420 mls/hr Q12H [facility] Administration Imipenem/Cilastatin Sodium 500 100 mls @ 100 mls/hr 11/25/16 22:00 11/28/16 05: 59 mg/ Sodium Chloride IVPB 100 mls/hr Q8H [facility] Administration Phenylephrine HCl 30 mg/ 253 mls @ 10.12 mls/hr 11/26/16 01:12 11/28/16 05:42 Sodium Chloride IV 40 mcg/min .Q24H PRN Titration TITRATE PER MD ORDER Protocol 20 MCG/MIN Acyclovir 500 mg/ Sodium 100 mls @ 100 mls/hr 11/26/16 18:00 11/28/16 10:02 Chloride IV 100 mls/hr Q8H [facility] Administration Propofol 100 mls @ 1.901 mls/hr 11/27/16 09:22 11/28/16 07:22 Diprivan IV 7.604 mls/hr .Q24H PRN Administration TITRATE PER MD ORDER Protocol 5 MCG/KG/MIN Methylprednisolone 60 mg 11/24/16 14:00 11/28/16 06:04 Solu-Medrol IV 60 mg Q8 [facility] Administration Pantoprazole Sodium 40 mg 11/24/16 07:00 11/28/16 06:04 Protonix Inj IVP 40 mg Q12H [facility] Administration Sucralfate 1 gm 11/24/16 07:00 11/28/16 06:05 Carafate Oral Susp PO 1 gm Q6H [facility] Administration - Patient Studies Lab Studies: Microbiology Studies 11/26/16 Unknown Gram Stain - Final Pleural Fluid Body Fluid Culture - Preliminary NO GROWTH AFTER 2 DAYS Fungal Culture - Preliminary 11/24/16 22:30 Blood Culture - Preliminary Blood-Thru Central Line NO GROWTH AFTER 3 DAYS 11/24/16 23:00 Blood Culture - Preliminary Blood-Thru Central Line NO GROWTH AFTER 3 DAYS Lab Studies 11/28/16 11/28/16 11/28/16 Range/Units 05:30 05:29 04:49 WBC 15.3 H (4.8-10.8) K/uL RBC 3.43 L (3.80-5.20) Mil/uL Hgb 10.4 L (11.0-16.0) g/dL Hct 30.8 L (34.0-47.0) % MCV 89.8 (81.0-99.0) fL MCH 30.3 (27.0-31.0) pg MCHC 33.8 (33.0-37.0) g/dL RDW 15.2 H (11.5-14.5) % Plt Count 123 L D (130-400) K/uL MPV 10.0 (7.2-11.7) fL Neut % (Auto) 93.5 H (50.0-75.0) % Lymph % (Auto) 2.4 L (20.0-40.0) % [place] % (Auto) 2.8 (0.0-10.0) % Eos % (Auto) 0.0 (0.0-4.0) % Baso % (Auto) 1.3 (0.0-2.0) % Neut # 14.3 H (1.8-7.0) K/uL Lymph # 0.4 L (1.0-4.3) K/uL [place] # 0.4 (0.0-0.8) K/uL Eos # 0.0 (0.0-0.7) K/uL Baso # 0.2 (0.0-0.2) K/uL Neutrophils % (Manual) 96 H (50-75) % Band Neutrophils % 2 (0-2) % Lymphocytes % (Manual) 1 L (20-40) % Reactive Lymphs % 1 H (0-0) % Monocytes % (Manual) 0 (0-10) % Platelet Estimate Slightly decreased L (NORMAL) Puncture Site Rrad pCO2 63 H (35-45) mm/Hg pO2 113 H (80-100) mm/Hg HCO3 40.8 H* (21-28) mmol/L ABG pH 7.48 H (7.35-7.45) ABG Total CO2 48.8 H (22-28) mmol/L ABG O2 Saturation 98.7 H (95-98) % ABG Base Excess 20.4 H (-2.0-3.0) mmol/L ABG Hemoglobin 10.3 L (11.7-17.4) g/dL ABG Carboxyhemoglobin 1.9 H (0.5-1.5) % POC ABG HHb (Measured) 1.3 (0.0-5.0) % ABG Methemoglobin 1.5 (0.0-3.0) % Reese Test Pos A-a O2 Difference 521.0 mm/Hg Respiratory Index 4.6 Hgb O2 Saturation 95.3 (95.0-98.0) % Mechanical Rate 20 FiO2 100.0 % Tidal Volume 400 PEEP 10 Crit Value Called To Sherri reynolds rn Crit Value Called By Rachael zafar java software Crit Value Read Back Y Blood Gas Notified Time 541 Sodium 154 H (132-148) mmol/L Potassium 3.1 L (3.6-5.2) mmol/L Chloride 103 (98-107) mmol/L Carbon Dioxide 44 H* D (22-30) mmol/L Anion Gap 10 (10-20) BUN 39 H (7-17) mg/dL Creatinine 0.9 (0.7-1.2) MG/DL Est GFR ( Amer) > 60 Est GFR (Non-Af Amer) > 60 Random Glucose 188 H (65-105) mg/dL Calcium 8.1 L (8.6-10.4) mg/dl Phosphorus 3.6 (2.5-4.5) mg/dL Magnesium 1.8 (1.6-2.3) mg/dL Total Bilirubin 1.2 (0.2-1.3) mg/dL AST 201 H (14-36) U/L ALT 229 H (9-52) U/L Alkaline Phosphatase 70 (38-126) U/L Troponin I 0.0480 (0.00-0.120) ng/mL Total Protein 4.6 L (6.3-8.3) g/dL Albumin 2.9 L D (3.5-5.0) g/dL Globulin 1.7 L (2.2-3.9) gm/dL Albumin/Globulin Ratio 1.7 (1.0-2.1) Urine Color (YELLOW) Urine Clarity (Clear) Urine pH (5.0-8.0) Ur Specific [place] (1.003-1.030) Urine Protein (NEGATIVE) mg/dL Urine Glucose (UA) (Normal) mg/dL Urine Ketones (NEGATIVE) mg/dL Urine Blood (NEGATIVE) Urine Nitrate (NEGATIVE) Urine Bilirubin (NEGATIVE) Urine Urobilinogen (0.2-1.0) mg/dL Ur Leukocyte Esterase (Negative) Sung/uL Urine WBC (Auto) (0-5) /hpf Urine RBC (Auto) (0-3) /hpf Urine Bacteria (<OCC) Hyaline Casts (0-2) /lpf C. pneumoniae IgG Ab (<1:64) C. pneumoniae IgA Ab (<1:16) C. pneumoniae IgM Ab (<1:10) C. pneumoniae Ab Interp (()) C. trachomatis IgG Ab (<1:64) C. trachomatis IgA Ab (<1:16) C. trachomatis IgM Ab (<1:10) C.trachomatis Ab Interp (()) C. psittaci IgG Ab (<1:64) C. psittaci IgA Ab (<1:16) C. psittaci IgM Ab (<1:10) C. psittaci Ab Interp (()) HSV I IgG Ab (0.00-0.89) HSV II IgG (0.00-0.89) 11/27/16 11/25/16 11/24/16 Range/Units 23:23 08:57 16:59 WBC (4.8-10.8) K/uL RBC (3.80-5.20) Mil/uL Hgb (11.0-16.0) g/dL Hct (34.0-47.0) % MCV (81.0-99.0) fL MCH (27.0-31.0) pg MCHC (33.0-37.0) g/dL RDW (11.5-14.5) % Plt Count (130-400) K/uL MPV (7.2-11.7) fL Neut % (Auto) (50.0-75.0) % Lymph % (Auto) (20.0-40.0) % [place] % (Auto) (0.0-10.0) % Eos % (Auto) (0.0-4.0) % Baso % (Auto) (0.0-2.0) % Neut # (1.8-7.0) K/uL Lymph # (1.0-4.3) K/uL [place] # (0.0-0.8) K/uL Eos # (0.0-0.7) K/uL Baso # (0.0-0.2) K/uL Neutrophils % (Manual) (50-75) % Band Neutrophils % (0-2) % Lymphocytes % (Manual) (20-40) % Reactive Lymphs % (0-0) % Monocytes % (Manual) (0-10) % Platelet Estimate (NORMAL) Puncture Site pCO2 (35-45) mm/Hg pO2 (80-100) mm/Hg HCO3 (21-28) mmol/L ABG pH (7.35-7.45) ABG Total CO2 (22-28) mmol/L ABG O2 Saturation (95-98) % ABG Base Excess (-2.0-3.0) mmol/L ABG Hemoglobin (11.7-17.4) g/dL ABG Carboxyhemoglobin (0.5-1.5) % POC ABG HHb (Measured) (0.0-5.0) % ABG Methemoglobin (0.0-3.0) % Reese Test A-a O2 Difference mm/Hg Respiratory Index Hgb O2 Saturation (95.0-98.0) % Mechanical Rate FiO2 % Tidal Volume PEEP Crit Value Called To Crit Value Called By Crit Value Read Back Blood Gas Notified Time Sodium (132-148) mmol/L Potassium (3.6-5.2) mmol/L Chloride (98-107) mmol/L Carbon Dioxide (22-30) mmol/L Anion Gap (10-20) BUN (7-17) mg/dL Creatinine (0.7-1.2) MG/DL Est GFR ( Amer) Est GFR (Non-Af Amer) Random Glucose (65-105) mg/dL Calcium (8.6-10.4) mg/dl Phosphorus (2.5-4.5) mg/dL Magnesium (1.6-2.3) mg/dL Total Bilirubin (0.2-1.3) mg/dL AST (14-36) U/L ALT (9-52) U/L Alkaline Phosphatase (38-126) U/L Troponin I (0.00-0.120) ng/mL Total Protein (6.3-8.3) g/dL Albumin (3.5-5.0) g/dL Globulin (2.2-3.9) gm/dL Albumin/Globulin Ratio (1.0-2.1) Urine Color Straw (YELLOW) Urine Clarity Clear (Clear) Urine pH 5.0 (5.0-8.0) Ur Specific [place] 1.008 (1.003-1.030) Urine Protein 1+ H (NEGATIVE) mg/dL Urine Glucose (UA) 1+ (Normal) mg/dL Urine Ketones Negative (NEGATIVE) mg/dL Urine Blood Negative (NEGATIVE) Urine Nitrate Negative (NEGATIVE) Urine Bilirubin Negative (NEGATIVE) Urine Urobilinogen Normal (0.2-1.0) mg/dL Ur Leukocyte Esterase Neg (Negative) Sung/uL Urine WBC (Auto) < 1 (0-5) /hpf Urine RBC (Auto) 1 (0-3) /hpf Urine Bacteria Rare (<OCC) Hyaline Casts 6-10 H (0-2) /lpf C. pneumoniae IgG Ab <1:64 (<1:64) C. pneumoniae IgA Ab <1:16 (<1:16) C. pneumoniae IgM Ab <1:10 (<1:10) C. pneumoniae Ab Interp see note (()) C. trachomatis IgG Ab <1:64 (<1:64) C. trachomatis IgA Ab <1:16 (<1:16) C. trachomatis IgM Ab <1:10 (<1:10) C.trachomatis Ab Interp see note (()) C. psittaci IgG Ab <1:64 (<1:64) C. psittaci IgA Ab <1:16 (<1:16) C. psittaci IgM Ab <1:10 (<1:10) C. psittaci Ab Interp see note (()) HSV I IgG Ab 3.70 H (0.00-0.89) HSV II IgG 0.16 (0.00-0.89) Laboratory Results - last 24 hr 11/24/16 11/25/16 11/27/16 16:59 08:57 23:23 WBC RBC Hgb Hct MCV MCH MCHC RDW Plt Count MPV Neut % (Auto) Lymph % (Auto) [place] % (Auto) Eos % (Auto) Baso % (Auto) Neut # Lymph # [place] # Eos # Baso # Neutrophils % (Manual) Band Neutrophils % Lymphocytes % (Manual) Reactive Lymphs % Monocytes % (Manual) Platelet Estimate Puncture Site pCO2 pO2 HCO3 ABG pH ABG Total CO2 ABG O2 Saturation ABG Base Excess ABG Hemoglobin ABG Carboxyhemoglobin POC ABG HHb (Measured) ABG Methemoglobin Reese Test A-a O2 Difference Respiratory Index Hgb O2 Saturation Mechanical Rate FiO2 Tidal Volume PEEP Crit Value Called To Crit Value Called By Crit Value Read Back Blood Gas Notified Time Sodium Potassium Chloride Carbon Dioxide Anion Gap BUN Creatinine Est GFR ( Amer) Est GFR (Non-Af Amer) Random Glucose Calcium Phosphorus Magnesium Total Bilirubin AST ALT Alkaline Phosphatase Troponin I Total Protein Albumin Globulin Albumin/Globulin Ratio Urine Color Straw Urine Clarity Clear Urine pH 5.0 Ur Specific [place] 1.008 Urine Protein 1+ H Urine Glucose (UA) 1+ Urine Ketones Negative Urine Blood Negative Urine Nitrate Negative Urine Bilirubin Negative Urine Urobilinogen Normal Ur Leukocyte Esterase Neg Urine WBC (Auto) < 1 Urine RBC (Auto) 1 Urine Bacteria Rare Hyaline Casts 6-10 H C. pneumoniae IgG Ab <1:64 C. pneumoniae IgA Ab <1:16 C. pneumoniae IgM Ab <1:10 C. pneumoniae Ab Interp see note C. trachomatis IgG Ab <1:64 C. trachomatis IgA Ab <1:16 C. trachomatis IgM Ab <1:10 C.trachomatis Ab Interp see note C. psittaci IgG Ab <1:64 C. psittaci IgA Ab <1:16 C. psittaci IgM Ab <1:10 C. psittaci Ab Interp see note HSV I IgG Ab 3.70 H HSV II IgG 0.16 11/28/16 11/28/16 11/28/16 04:49 05:29 05:30 WBC 15.3 H RBC 3.43 L Hgb 10.4 L Hct 30.8 L MCV 89.8 MCH 30.3 MCHC 33.8 RDW 15.2 H Plt Count 123 L D MPV 10.0 Neut % (Auto) 93.5 H Lymph % (Auto) 2.4 L [place] % (Auto) 2.8 Eos % (Auto) 0.0 Baso % (Auto) 1.3 Neut # 14.3 H Lymph # 0.4 L [place] # 0.4 Eos # 0.0 Baso # 0.2 Neutrophils % (Manual) 96 H Band Neutrophils % 2 Lymphocytes % (Manual) 1 L Reactive Lymphs % 1 H Monocytes % (Manual) 0 Platelet Estimate Slightly decreased L Puncture Site Rrad pCO2 63 H pO2 113 H HCO3 40.8 H* ABG pH 7.48 H ABG Total CO2 48.8 H ABG O2 Saturation 98.7 H ABG Base Excess 20.4 H ABG Hemoglobin 10.3 L ABG Carboxyhemoglobin 1.9 H POC ABG HHb (Measured) 1.3 ABG Methemoglobin 1.5 Reese Test Pos A-a O2 Difference 521.0 Respiratory Index 4.6 Hgb O2 Saturation 95.3 Mechanical Rate 20 FiO2 100.0 Tidal Volume 400 PEEP 10 Crit Value Called To Sherri reynolds rn Crit Value Called By Rachael zafar java software Crit Value Read Back Y Blood Gas Notified Time 541 Sodium 154 H Potassium 3.1 L Chloride 103 Carbon Dioxide 44 H* D Anion Gap 10 BUN 39 H Creatinine 0.9 Est GFR ( Amer) > 60 Est GFR (Non-Af Amer) > 60 Random Glucose 188 H Calcium 8.1 L Phosphorus 3.6 Magnesium 1.8 Total Bilirubin 1.2 AST 201 H ALT 229 H Alkaline Phosphatase 70 Troponin I 0.0480 Total Protein 4.6 L Albumin 2.9 L D Globulin 1.7 L Albumin/Globulin Ratio 1.7 Urine Color Urine Clarity Urine pH Ur Specific [place] Urine Protein Urine Glucose (UA) Urine Ketones Urine Blood Urine Nitrate Urine Bilirubin Urine Urobilinogen Ur Leukocyte Esterase Urine WBC (Auto) Urine RBC (Auto) Urine Bacteria Hyaline Casts C. pneumoniae IgG Ab C. pneumoniae IgA Ab C. pneumoniae IgM Ab C. pneumoniae Ab Interp C. trachomatis IgG Ab C. trachomatis IgA Ab C. trachomatis IgM Ab C.trachomatis Ab Interp C. psittaci IgG Ab C. psittaci IgA Ab C. psittaci IgM Ab C. psittaci Ab Interp HSV I IgG Ab HSV II IgG EKG/Cardiology Studies: Cardiology / EKG Studies 11/28/16 05:19 ELECTROCARDIOGRAM Stat Comment: Mode Of Transportation: PORTABLE Reason For Exam: atrial fibrillation
--- NOTE | 2016-11-28 19:04 | CP.PCM.PN ---
Subjective - Date & Time of Evaluation Date of Evaluation: 11/28/16 Time of Evaluation: 07:45 - Subjective Subjective: Pt S&E this AM. Reacts to noxious stimuli. On pressors. Current vent settings in AM 100%/10PEEP/20RR/400TV. Small leak from CT, 10cc/24hr. Objective - Vital Signs/Intake and Output Vital Signs (last 24 hours): Temp Pulse Resp BP Pulse Ox 99.4 F 81 22 131/75 95 11/28/16 16:00 11/28/16 18:00 11/28/16 18:00 11/28/16 18:00 11/28/16 18:00 Intake and Output: 11/28/16 11/29/16 18:59 06:59 Intake Total 2132.6 Output Total 880 Balance 1252.6 - Medications Medications: Current Medications Acetazolamide (Diamox 500 Mg Inj) 500 mg IV Q8H [facility] Stop: 11/29/16 00:01 Last Admin: 11/28/16 16:31 Dose: 500 mg Aspirin (Aspirin Chewable) 81 mg PO DAILY [facility] Last Admin: 11/23/16 09:23 Dose: Not Given Clopidogrel Bisulfate (Plavix) 75 mg PO DAILY [facility] Last Admin: 11/23/16 10:33 Dose: Not Given Enoxaparin Sodium (Lovenox) 40 mg SC DAILY [facility] Last Admin: 11/24/16 09:49 Dose: 40 mg Fentanyl Citrate 2,500 mcg/ (Sodium Chloride) 250 mls @ 70 mls/hr IV .Q3H35M [facility]; 10 MCG/KG/HR PRN Reason: Protocol Last Admin: 11/28/16 12:07 Dose: 28 mls/hr Midazolam HCl 100 mg/ Sodium (Chloride) 100 mls @ 1.4 mls/hr IV .Q24H PRN; Protocol; 0.02 MG/KG/HR PRN Reason: FOLLOW PROTOCOL Last Titration: 11/28/16 05:15 Dose: 0 mg/kg/hr Levetiracetam 500 mg/ Sodium (Chloride) 105 mls @ 420 mls/hr IVPB Q12H [facility] Last Admin: 11/28/16 10:02 Dose: 420 mls/hr Imipenem/Cilastatin Sodium 500 (mg/ Sodium Chloride) 100 mls @ 100 mls/hr IVPB Q8H [facility] Last Admin: 11/28/16 14:19 Dose: 100 mls/hr Phenylephrine HCl 30 mg/ (Sodium Chloride) 253 mls @ 10.12 mls/hr IV .Q24H PRN ; Protocol; 20 MCG/MIN PRN Reason: TITRATE PER MD ORDER Last Titration: 11/28/16 18:27 Dose: 30 mcg/min Acyclovir 500 mg/ Sodium (Chloride) 100 mls @ 100 mls/hr IV Q8H [facility] Last Admin: 11/28/16 17:39 Dose: 100 mls/hr Propofol (Diprivan) 100 mls @ 1.901 mls/hr IV .Q24H PRN; Protocol; 5 MCG/KG/MIN PRN Reason: TITRATE PER MD ORDER Last Admin: 11/28/16 17:38 Dose: 7.604 mls/hr Methylprednisolone (Solu-Medrol) 60 mg IV Q8 [facility] Last Admin: 11/28/16 13:27 Dose: 60 mg Pantoprazole Sodium (Protonix Inj) 40 mg IVP Q12H [facility] Last Admin: 11/28/16 18:26 Dose: 40 mg Sucralfate (Carafate Oral Susp) 1 gm PO Q6H [facility] Last Admin: 11/28/16 18:27 Dose: 1 gm - Labs Labs: 11/28/16 04:49 11/28/16 04:49 PT 15.0 SECONDS (9.7-12.2) H 11/26/16 12:14 INR 1.3 11/26/16 12:14 APTT 28 SECONDS (21-34) 11/26/16 12:14 - Constitutional Appears: Non-toxic - Head Exam Head Exam: NORMAL INSPECTION - ENT Exam ENT Exam: Mucous Membranes Moist - Respiratory Exam Additional comments: intubated - Cardiovascular Exam Cardiovascular Exam: +S1, +S2 - GI/Abdominal Exam GI & Abdominal Exam: Soft. absent: Tenderness - Neurological Exam Neurological Exam: absent: Awake - Skin Skin Exam: Intact, Warm Assessment and Plan - Assessment and Plan (Free Text) Assessment: - Keep CT on sxn while on the vent - Continue to trend H/H - Monitor output--chest tube, OGT, and urine - F/u discussion of long-term plans with family, as family contemplating hospice vs terminal extubation. Pt's daughter requested mother be made -DNR. d/w Dr. Chan
--- NOTE | 2016-11-28 19:59 | CP.PCM.PN ---
Subjective - Date & Time of Evaluation Date of Evaluation: 11/28/16 Time of Evaluation: 19:59 - Subjective Subjective: CHIEF COMPLAINTS TODAY : patient in ICU, EVENTS NOTED. LAST NIGHT tMAX OF 102, BP 104/64 .PAO2 110 INCREASED -Remains intubated on ventilat support. -AWAKE, FOLLOWS COMMAND. -NO MORE TARRY STOOLS H/H STABLE S/P RLLWEDGE BIOPSY- # day 11 11/17/16 Biopsy report right lower lobe; organizing pneumonia with focal intra- alveolar hemosiderin ROS. responsive HEENT : N. Resp : No cough, +ve rhonchi , no pleuritic CP ,or hemoptysis .RT CHEST TUBE IN PLACE Cardio : No anginal CP, PND, orthopnea, palpitation GI : NO n/v ,diarrhea or GI bleeding . HEALTH TECH : No headache, vertigo, focal deficit / Musculoskel : No joint swelling , Derm : No rash Psych : Normal affect. Ext : No swelling ,calf pain PE. Pt. ON VENTILATOR, RT.IJ CATHETER IN PLACE V.S As noted in the chart Head ,ear nose,throat and eyes : Normal. Neck : Supple with normal carotids. Lungs: BILATERAL RHONCHI. RT. CT IN PLACE DRAINING SEROSANGUINEOUS DRAINAGE.. Heart : S1 & S2 normal with S4. No murmur. Abd : soft, with HYPOACTIVE bowel sounds. Neuro : Moves all ext. with no localized deficit. Ext : No edema with intact pulses.Non tender calves Bilateral Venodyne. Derm : No rashes or decubitus ulcer. LABS/RADIOLOGY: 11/28/16 WBC 15.3 H&H 10.4 platelets 123 lfts improving creat 0.9/BUN 39 Sodium 154 HSV IGG TITRES HIGH ?IMMUNE cHLAMYDIA PSITTACI-NO ANTIBODY DETECTED cHLAMYDIA PNEUMONIAE- NO ANTIBODY DETECTED Stools negative for occult blood PLEURAL FLUID 11/24/ NEGATIVE GROWTH FOR 24 HOURS chest x-ray 11/28/16- increased interstitial lung markings. No interval change from previous one. CMV DNA PCR <200 NOT DETECTED CHEST X-RAY 11/25/16--HAZY OPACITY RIGHT LUNG. CXR - Diffuse confluent airspace opacities B/L lungs w/prominent increased interstitial lung markings. Not sig changed vs prior study. URINE CULTURES 11/24/16 NEGATIVE GROWTH bLOOD CULTURES 11/24/16 NEGATIVE GROWTH. Objective - Vital Signs/Intake and Output Vital Signs (last 24 hours): Temp Pulse Resp BP Pulse Ox 99.4 F 104 H 22 129/77 94 L 11/28/16 16:00 11/28/16 19:00 11/28/16 19:00 11/28/16 19:00 11/28/16 19:00 Intake and Output: 11/28/16 11/29/16 18:59 06:59 Intake Total 2132.6 59.8 Output Total 880 70 Balance 1252.6 -10.2 - Medications Medications: Current Medications Acetazolamide (Diamox 500 Mg Inj) 500 mg IV Q8H [facility] Stop: 11/29/16 00:01 Last Admin: 11/28/16 16:31 Dose: 500 mg Aspirin (Aspirin Chewable) 81 mg PO DAILY [facility] Last Admin: 11/23/16 09:23 Dose: Not Given Clopidogrel Bisulfate (Plavix) 75 mg PO DAILY [facility] Last Admin: 11/23/16 10:33 Dose: Not Given Enoxaparin Sodium (Lovenox) 40 mg SC DAILY [facility] Last Admin: 11/24/16 09:49 Dose: 40 mg Fentanyl Citrate 2,500 mcg/ (Sodium Chloride) 250 mls @ 70 mls/hr IV .Q3H35M [facility]; 10 MCG/KG/HR PRN Reason: Protocol Last Admin: 11/28/16 12:07 Dose: 28 mls/hr Midazolam HCl 100 mg/ Sodium (Chloride) 100 mls @ 1.4 mls/hr IV .Q24H PRN; Protocol; 0.02 MG/KG/HR PRN Reason: FOLLOW PROTOCOL Last Titration: 11/28/16 05:15 Dose: 0 mg/kg/hr Levetiracetam 500 mg/ Sodium (Chloride) 105 mls @ 420 mls/hr IVPB Q12H [facility] Last Admin: 11/28/16 10:02 Dose: 420 mls/hr Imipenem/Cilastatin Sodium 500 (mg/ Sodium Chloride) 100 mls @ 100 mls/hr IVPB Q8H [facility] Last Admin: 11/28/16 14:19 Dose: 100 mls/hr Phenylephrine HCl 30 mg/ (Sodium Chloride) 253 mls @ 10.12 mls/hr IV .Q24H PRN ; Protocol; 20 MCG/MIN PRN Reason: TITRATE PER MD ORDER Last Titration: 11/28/16 18:27 Dose: 30 mcg/min Acyclovir 500 mg/ Sodium (Chloride) 100 mls @ 100 mls/hr IV Q8H [facility] Last Admin: 11/28/16 17:39 Dose: 100 mls/hr Propofol (Diprivan) 100 mls @ 1.901 mls/hr IV .Q24H PRN; Protocol; 5 MCG/KG/MIN PRN Reason: TITRATE PER MD ORDER Last Titration: 11/28/16 19:47 Dose: 26.56 mcg/kg/min Methylprednisolone (Solu-Medrol) 60 mg IV Q8 [facility] Last Admin: 11/28/16 13:27 Dose: 60 mg Pantoprazole Sodium (Protonix Inj) 40 mg IVP Q12H [facility] Last Admin: 11/28/16 18:26 Dose: 40 mg Sucralfate (Carafate Oral Susp) 1 gm PO Q6H [facility] Last Admin: 11/28/16 18:27 Dose: 1 gm - Labs Labs: 11/28/16 04:49 11/28/16 04:49 PT 15.0 SECONDS (9.7-12.2) H 11/26/16 12:14 INR 1.3 11/26/16 12:14 APTT 28 SECONDS (21-34) 11/26/16 12:14 Assessment and Plan (1) Acute respiratory failure with hypoxia Status: Acute (2) Abdominal pain Status: Acute (3) Bilateral pneumonia Status: Acute (4) COPD (chronic obstructive pulmonary disease) Status: Acute (5) Anemia Status: Acute (6) Urinary tract infection Status: Acute - Assessment and Plan (Free Text) Assessment: IMPRESSION; > RESPIRATORY FAILURE/HYPOXIA BILATERAL PNEUMONIA ATYPICAL PNEUMONIA.(HISTORY OF CHANTELL-PARAPSILOSIS PNEUMONIA SEP 2016 S/ FOB ) S/P VATS AND CT/WEDGE BX RLL -organizing pneumonia with focal intra-alveolar hemosiderin. > EXACERBATION OF COPD. > lEUKOCYTOSIS ? STEROID VS SEPSIS > ABDOMINAL PAIN -PARTIAL SMALL BOWEL OBSTRUCTION. (CT ABD /PELVIS-SEE REPORT ) HX OF EXPLORATORY LAP/LYLE AUG 2016 > UROSEPSIS +VE kLEBSIELLA PNEUMONIAE/ S/P CANDIDURIA > CHF./CAD. > ANEMIA -G I BLEEDING S/P EGD 11/25/16 >HISTORY OF SERONEGATIVE LUPUS ON PLAQUENIL. >DEPRESSION/ANXIETY. PLAN; on iv PRIMAXIN 500 MG EVERY 8 HOURLY WHILE AWAITING BLOOD CULTURES.11/25/16 ON iv ACYCLOVIR 11/24/16 F/U CULTURES F/U LFTS. PATIENT ON high-DOSE STEROIDS PER CLIENT PARTNER AND PULMONARY. As noted patient considered for palliative care. Talks with family in progression FAMILY CONTEMPLATING TERMINAL EXTUBATION. PROGNOSIS GUARDED, CASE DISCUSSED WITH DR DAVIS.-pulmonary. As reported patient not a candidate for lung transplant.
--- NOTE | 2016-11-28 21:02 | CP.PCM.PN ---
Subjective - Date & Time of Evaluation Date of Evaluation: 11/28/16 Time of Evaluation: 19:50 - Subjective Subjective: patient seen and examined in the intensive care unit. Intubated on ventilatory support FiO2 80% with PEEP of 10and saturation in the mid 90s Chest x-ray reviewed No further bleeding noted On low-dose phenylephrine Afebrile Objective - Vital Signs/Intake and Output Vital Signs (last 24 hours): Temp Pulse Resp BP Pulse Ox 99.4 F 104 H 22 129/77 94 L 11/28/16 16:00 11/28/16 19:00 11/28/16 19:00 11/28/16 19:00 11/28/16 19:00 Intake and Output: 11/28/16 11/29/16 18:59 06:59 Intake Total 2132.6 59.8 Output Total 880 70 Balance 1252.6 -10.2 - Medications Medications: Current Medications Acetazolamide (Diamox 500 Mg Inj) 500 mg IV Q8H [facility] Stop: 11/29/16 00:01 Last Admin: 11/28/16 16:31 Dose: 500 mg Aspirin (Aspirin Chewable) 81 mg PO DAILY [facility] Last Admin: 11/23/16 09:23 Dose: Not Given Clopidogrel Bisulfate (Plavix) 75 mg PO DAILY [facility] Last Admin: 11/23/16 10:33 Dose: Not Given Enoxaparin Sodium (Lovenox) 40 mg SC DAILY [facility] Last Admin: 11/24/16 09:49 Dose: 40 mg Fentanyl Citrate 2,500 mcg/ (Sodium Chloride) 250 mls @ 70 mls/hr IV .Q3H35M [facility]; 10 MCG/KG/HR PRN Reason: Protocol Last Admin: 11/28/16 12:07 Dose: 28 mls/hr Midazolam HCl 100 mg/ Sodium (Chloride) 100 mls @ 1.4 mls/hr IV .Q24H PRN; Protocol; 0.02 MG/KG/HR PRN Reason: FOLLOW PROTOCOL Last Titration: 11/28/16 05:15 Dose: 0 mg/kg/hr Levetiracetam 500 mg/ Sodium (Chloride) 105 mls @ 420 mls/hr IVPB Q12H [facility] Last Admin: 11/28/16 10:02 Dose: 420 mls/hr Imipenem/Cilastatin Sodium 500 (mg/ Sodium Chloride) 100 mls @ 100 mls/hr IVPB Q8H [facility] Last Admin: 11/28/16 14:19 Dose: 100 mls/hr Phenylephrine HCl 30 mg/ (Sodium Chloride) 253 mls @ 10.12 mls/hr IV .Q24H PRN ; Protocol; 20 MCG/MIN PRN Reason: TITRATE PER MD ORDER Last Titration: 11/28/16 18:27 Dose: 30 mcg/min Acyclovir 500 mg/ Sodium (Chloride) 100 mls @ 100 mls/hr IV Q8H [facility] Last Admin: 11/28/16 17:39 Dose: 100 mls/hr Propofol (Diprivan) 100 mls @ 1.901 mls/hr IV .Q24H PRN; Protocol; 5 MCG/KG/MIN PRN Reason: TITRATE PER MD ORDER Last Titration: 11/28/16 19:47 Dose: 26.56 mcg/kg/min Methylprednisolone (Solu-Medrol) 60 mg IV Q8 [facility] Last Admin: 11/28/16 13:27 Dose: 60 mg Pantoprazole Sodium (Protonix Inj) 40 mg IVP Q12H [facility] Last Admin: 11/28/16 18:26 Dose: 40 mg Sucralfate (Carafate Oral Susp) 1 gm PO Q6H [facility] Last Admin: 11/28/16 18:27 Dose: 1 gm - Labs Labs: 11/28/16 04:49 11/28/16 04:49 PT 15.0 SECONDS (9.7-12.2) H 11/26/16 12:14 INR 1.3 11/26/16 12:14 APTT 28 SECONDS (21-34) 11/26/16 12:14 - Head Exam Head Exam: ATRAUMATIC, NORMOCEPHALIC - ENT Exam ENT Exam: Mucous Membranes Moist - Neck Exam Neck Exam: Normal Inspection - Respiratory Exam Respiratory Exam: Rales - Cardiovascular Exam Cardiovascular Exam: REGULAR RHYTHM - GI/Abdominal Exam GI & Abdominal Exam: Soft, Normal Bowel Sounds - Extremities Exam Extremities Exam: Pedal Edema Assessment and Plan (1) Acute respiratory failure with hypoxia Assessment & Plan: reduce FiO2 as tolerated Continue antibiotics per ID Continue high-dose steroids Not candidate for lung transplant as per Dr. Alejandra conversation with [facility] Status: Acute (2) Bilateral pneumonia Status: Acute (3) Small bowel obstruction Status: Acute
[2016-11-29] MEDS: Sucralfate 1 gm/10 ml Oral Susp UD PO SCH ×3 (01:04→12:15)
[2016-11-29] MEDS: Acyclovir 500 MG in Sodium Chloride 0.9% 100 ML IV SCH ×2 (01:04→10:11)
[2016-11-29 04:39] LABS: ABG MECHANICAL RATE 20; ARTERIAL BLOOD HGB O2 SAT 90.3 % (95.0-98.0); ATERIAL BLOOD GAS PEEP 10; CARBOXYHEMOGLOBIN 2.6 % (0.5-1.5); DRAW SITE RB; HHB 5.9 % (0.0-5.0); METHEMOGLOBIN 1.2 % (0.0-3.0)
[2016-11-29] MEDS: MethylPREDNISolone 40 mg Vial IV SCH ×2 (05:06→14:21)
[2016-11-29 06:31] LABS: BASO % 0.3 % (0.0-2.0); LYMPH # 0.3 K/uL (1.0-4.3); MEAN CELL VOLUME 91.2 fL (81.0-99.0); MEAN CORPUSCULAR HEMOGLOBIN 29.9 pg (27.0-31.0); MEAN CORPUSCULAR HGB CONC 32.8 g/dL (33.0-37.0); MONO # 0.4 K/uL (0.0-0.8); MONO % 3.2 % (0.0-10.0); NRBC % 0.5 % (0.0-2.0); PLATELET COUNT 114 K/uL (130-400); RED CELL DISTRIBUTION WIDTH 14.8 % (11.5-14.5); WHITE BLOOD COUNT 13.6 K/uL (4.8-10.8)
[2016-11-29 06:43] LABS: CHLORIDE 104 mmol/L (98-107); SODIUM 147 mmol/L (132-148)
[2016-11-29 06:44] LABS: POTASSIUM 2.8 mmol/L (3.6-5.2)
[2016-11-29 06:45] LABS: GFR AFRICAN-AMERICAN > 60
[2016-11-29 06:46] LABS: ALB/GLOB RATIO 1.6 (1.0-2.1); ALKALINE PHOSPHATASE 68 U/L (38-126); ALT/SGPT 125 U/L (9-52); AST/SGOT 49 U/L (14-36); BILIRUBIN,TOTAL 1.1 mg/dL (0.2-1.3); BLOOD UREA NITROGEN 29 mg/dL (7-17); CARBON DIOXIDE 39 mmol/L (22-30); GLUCOSE,RANDOM 150 mg/dL (65-105); PHOSPHOROUS 3.1 mg/dL (2.5-4.5); TOTAL PROTEIN 4.3 g/dL (6.3-8.3)
[2016-11-29 06:47] LABS: CALCIUM 7.8 mg/dl (8.6-10.4); MAGNESIUM 2.3 mg/dL (1.6-2.3)
--- NOTE | 2016-11-29 08:18 | RAD ---
HISTORY: follow up COMPARISON: 11/28/2016 FINDINGS: LUNGS: Lines and tubes in stable position. Persistent small right-sided pneumothorax. Persistent diffuse coarse interstitial airspace opacities throughout both lungs. PLEURA: As above. CARDIOVASCULAR: Normal. OSSEOUS STRUCTURES: No significant abnormalities. VISUALIZED UPPER ABDOMEN: Normal. OTHER FINDINGS: None. IMPRESSION: Lines and tubes in stable position. Persistent small right-sided pneumothorax. Persistent diffuse coarse interstitial airspace opacities throughout both lungs.
[2016-11-29 08:37] LABS: NEUTROPHIL 92 % (50-75); TOTAL CELLS COUNTED 100
--- NOTE | 2016-11-29 08:44 | CP.PCM.PN ---
Subjective - Date & Time of Evaluation Date of Evaluation: 11/29/16 Time of Evaluation: 08:41 - Subjective Subjective: Thoracic Surgery - Dr. Chan Pt S&E. Last night pt was made DNR by son. Pt is awake, on sedation, on ventilator w/ ETT, vent settings w/ 80% Fio2, [address] to wall suction w/ scant serosanguinous drainage, + Airleak, dressing changed by nursing earlier this morning and is C/D/I. Objective - Vital Signs/Intake and Output Vital Signs (last 24 hours): Temp Pulse Resp BP Pulse Ox 98.2 F 118 H 15 102/54 L 95 11/29/16 08:00 11/29/16 08:00 11/29/16 08:00 11/29/16 07:54 11/29/16 08:00 Intake and Output: 11/29/16 11/29/16 06:59 18:59 Intake Total 1554.9 160.2 Output Total 760 105 Balance 794.9 55.2 - Medications Medications: Current Medications Aspirin (Aspirin Chewable) 81 mg PO DAILY [facility] Last Admin: 11/23/16 09:23 Dose: Not Given Clopidogrel Bisulfate (Plavix) 75 mg PO DAILY [facility] Last Admin: 11/23/16 10:33 Dose: Not Given Enoxaparin Sodium (Lovenox) 40 mg SC DAILY [facility] Last Admin: 11/24/16 09:49 Dose: 40 mg Fentanyl Citrate 2,500 mcg/ (Sodium Chloride) 250 mls @ 70 mls/hr IV .Q3H35M [facility]; 10 MCG/KG/HR PRN Reason: Protocol Last Admin: 11/28/16 23:11 Dose: 28 mls/hr Midazolam HCl 100 mg/ Sodium (Chloride) 100 mls @ 1.4 mls/hr IV .Q24H PRN; Protocol; 0.02 MG/KG/HR PRN Reason: FOLLOW PROTOCOL Last Titration: 11/28/16 05:15 Dose: 0 mg/kg/hr Levetiracetam 500 mg/ Sodium (Chloride) 105 mls @ 420 mls/hr IVPB Q12H [facility] Last Admin: 11/28/16 22:41 Dose: 420 mls/hr Imipenem/Cilastatin Sodium 500 (mg/ Sodium Chloride) 100 mls @ 100 mls/hr IVPB Q8H [facility] Last Admin: 11/29/16 05:06 Dose: 100 mls/hr Phenylephrine HCl 30 mg/ (Sodium Chloride) 253 mls @ 10.12 mls/hr IV .Q24H PRN ; Protocol; 20 MCG/MIN PRN Reason: TITRATE PER MD ORDER Last Titration: 11/29/16 01:04 Dose: 0 mcg/min Acyclovir 500 mg/ Sodium (Chloride) 100 mls @ 100 mls/hr IV Q8H [facility] Last Admin: 11/29/16 01:04 Dose: 100 mls/hr Propofol (Diprivan) 100 mls @ 1.901 mls/hr IV .Q24H PRN; Protocol; 5 MCG/KG/MIN PRN Reason: TITRATE PER MD ORDER Last Admin: 11/29/16 04:42 Dose: 12.1 mls/hr Potassium Chloride (Potassium Chloride 20 Meq/100 Ml) 100 mls @ 50 mls/hr IVPB Q2H [facility] Stop: 11/29/16 14:44 Methylprednisolone (Solu-Medrol) 60 mg IV Q8 [facility] Last Admin: 11/29/16 05:06 Dose: 60 mg Pantoprazole Sodium (Protonix Inj) 40 mg IVP Q12H [facility] Last Admin: 11/29/16 06:44 Dose: 40 mg Sucralfate (Carafate Oral Susp) 1 gm PO Q6H [facility] Last Admin: 11/29/16 06:44 Dose: 1 gm - Labs Labs: 11/29/16 06:24 11/29/16 06:24 PT 15.0 SECONDS (9.7-12.2) H 11/26/16 12:14 INR 1.3 11/26/16 12:14 APTT 28 SECONDS (21-34) 11/26/16 12:14 - Constitutional Appears: No Acute Distress - Head Exam Head Exam: ATRAUMATIC, NORMOCEPHALIC - Respiratory Exam Respiratory Exam: absent: Respiratory Distress Additional comments: R CT in place to wall suction, 0cc drainage, + Airleak, Dressing C/D/I - GI/Abdominal Exam GI & Abdominal Exam: Soft. absent: Distended, Tenderness - Neurological Exam Neurological Exam: Alert, Awake - Skin Skin Exam: Dry, Intact Assessment and Plan - Assessment and Plan (Free Text) Assessment: 51F w/ SLE and Resp. Failure d/t diffuse lung dz - Continue CT to wall suction - CXR w/ small apical PTX - Monitor H/H - K+ Repletion - Cont Care as per ICU/medical team d/w Dr. Chan
[2016-11-29] MEDS: Potassium Chloride 20 mEq 100 ML IVPB SCH ×3 (09:04→12:15)
[2016-11-29] MEDS: Potassium Chloride 20 mEq/15 ml LIQ UD PO SCH ×2 (09:04→12:16)
[2016-11-29 12:12] VITALS: TEMP 99.9
[2016-11-29] MEDS: levETIRAcetam 500 MG in Sodium Chloride 0.9% 100 ML IVPB SCH (12:15)
--- NOTE | 2016-11-29 16:13 | CP.CCUPN ---
CCU Subjective - Physician Review Events Since Last Encounter (Free Text): 11/29/16 16:10 patient seen and examined in am, today paO2 58 on 80% FiO2 and peep 10. There was an episode of desaturation, tachypnea, diaphoresis and erythema of the face. At that time family decided to disconnect from the ventilator, they do not want her do suffer any longer. ros unable pe: bp 80/33 mmhg, hr 93 bpm, rr 10, o2 100 % on 10 peep, last fever 2 night ago deeply sedated this pm s1, s2 rrr, back to sinus rhythm today abdomen soft, non tender no focal neurological abnormalities skin intact, redness in sacral area a/p: pulmonary fibrosis/ILD exacerbation: Does not tolerate decrease in FiO2, we have been able to decrease FiO2 twice during hospitalization, but it does not last for long, family does not want her to suffer any longer and will extubate when she is ready. Son Vinnie, mother present CCU Objective - Vital Signs / Intake & Output Vital Signs (Last 4 hours): Vital Signs Pulse Resp BP Pulse Ox 11/29/16 15:55 98 H 11 L 80/33 L 98 11/29/16 14:57 114 H 24 98/56 L 94 L 11/29/16 13:54 92 H 19 103/58 L 11/29/16 12:55 102 H 23 112/63 97 Intake and Output (Last 8hrs): Intake & Output 11/29/16 11/29/16 11/29/16 06:59 14:59 22:59 Intake Total 960.8 1170.8 112.1 Output Total 470 260 100 Balance 490.8 910.8 12.1 Weight 129 lb 3.054 oz Intake: Intake, IV Amount 630.8 930.8 112.1 Right Forearm 96.8 106.8 16.1 Right Medial Port 300 600 2 Internal Jugular Right Proximal Port 10 Internal Jugular RT IJ TLC Distal port 2 224 224 84 RIJ Proximal 10 0 Tube Feeding 80 180 Other 250 60 Output: Chest Tube Drainage 0 0 Right Mid-Axillary Chest 0 0 Urine 470 260 100 Urethral (Mishra) 470 260 100 - Physical Exam Head: Positive for: Atraumatic, Normocephalic Pupils: Positive for: PERRL Extroacular Muscles: Positive for: EOMI Conjunctiva: Positive for: Normal Ears: Positive for: Normal Mouth: Positive for: Dry, Other (ET & OG tubes in place) Pharnyx: Positive for: Normal Nose (External): Positive for: Atraumatic Neck: Positive for: Normal Range of Motion, Trachea Midline, Other (Right IJ (- ) erythema/drainage) Respiratory/Chest: Positive for: Good Air Exchange, Wheezes (mild B/L), Decreased Breath Sounds, Rhonchi (at bases), Other (Right chest wall w/CT in place, dressing - C/D/I). Negative for: Clear to Auscultation, Respiratory Distress, Accessory Muscle Use, Rales, Retracting Cardiovascular: Positive for: Regular Rate and Rhythm, Normal S1, S2, Peripheal Pulses Present. Negative for: Murmurs, Rub, Gallop Abdomen: Negative for: Tenderness, Distention, Normal Bowel Sounds, Peritoneal Signs, Rebound, Guarding, Rovsing's Sign Present Upper Extremity: Positive for: Normal Inspection. Negative for: Cyanosis, Edema Lower Extremity: Positive for: Normal Inspection. Negative for: Edema Neurological: Positive for: Other (intubated/sedated). Negative for: GCS=15, Speech Normal Skin: Positive for: Warm, Dry, Normal Color, Pale. Negative for: Rashes Psychiatric: Negative for: Alert, Oriented x 3, Normal Insight, Normal Concentration - Medications Active Medications: Active Medications Generic Name Dose Route Start Last Admin Trade Name Freq PRN Reason Stop Dose Admin Fentanyl Citrate 2,500 mcg/ 250 mls @ 70 mls/hr 11/19/16 10:35 11/28/16 23:11 Sodium Chloride IV 28 mls/hr .Q3H35M [facility] Administration Protocol 10 MCG/KG/HR Lorazepam 40 mg/ Sodium 40 mls @ 2 mls/hr 11/29/16 15:15 11/29/16 15:46 Chloride IV 2 mls/hr .Q20H [facility] Administration Protocol 2 MG/HR Morphine Sulfate 250 mg/ 250 mls @ 10 mls/hr 11/29/16 15:06 11/29/16 15:45 Sodium Chloride IV 11/30/16 15:05 10 mls/hr .Q24H ONE Administration Protocol - Patient Studies Lab Studies: Microbiology Studies 11/26/16 Unknown Gram Stain - Final Pleural Fluid Body Fluid Culture - Preliminary Gram Positive Cocci Fungal Culture - Preliminary 11/24/16 22:30 Blood Culture - Preliminary Blood-Thru Central Line NO GROWTH AFTER 4 DAYS 11/24/16 23:00 Blood Culture - Preliminary Blood-Thru Central Line NO GROWTH AFTER 4 DAYS 11/27/16 23:01 Urine Culture - Final Urine,Mishra No Growth (<1,000 CFU/ML) 11/27/16 23:00 Blood Culture - Preliminary Blood-Venous NO GROWTH AFTER 24 HOURS 11/27/16 23:10 Blood Culture - Preliminary Blood-Venous NO GROWTH AFTER 24 HOURS 11/26/16 11:53 Mycobacterial Culture - Preliminary Other: Please Indicate Lab Studies 11/29/16 11/29/16 Range/Units 06:24 04:25 WBC 13.6 H (4.8-10.8) K/uL RBC 3.07 L (3.80-5.20) Mil/uL Hgb 9.2 L (11.0-16.0) g/dL Hct 28.0 L (34.0-47.0) % MCV 91.2 (81.0-99.0) fL MCH 29.9 (27.0-31.0) pg MCHC 32.8 L (33.0-37.0) g/dL RDW 14.8 H (11.5-14.5) % Plt Count 114 L (130-400) K/uL MPV 11.0 (7.2-11.7) fL Neut % (Auto) 94.5 H (50.0-75.0) % Lymph % (Auto) 2.0 L (20.0-40.0) % Frontier % (Auto) 3.2 (0.0-10.0) % Eos % (Auto) 0.0 (0.0-4.0) % Baso % (Auto) 0.3 (0.0-2.0) % Neut # 12.8 H (1.8-7.0) K/uL Lymph # 0.3 L (1.0-4.3) K/uL Frontier # 0.4 (0.0-0.8) K/uL Eos # 0.0 (0.0-0.7) K/uL Baso # 0.0 (0.0-0.2) K/uL Neutrophils % (Manual) 92 H (50-75) % Band Neutrophils % 3 H (0-2) % Lymphocytes % (Manual) 2 L (20-40) % Monocytes % (Manual) 3 (0-10) % Platelet Estimate Slightly decreased L (NORMAL) Polychromasia Slight Hypochromasia (manual) Slight Anisocytosis (manual) Slight Puncture Site Rb pCO2 56 H (35-45) mm/Hg pO2 58 L (80-100) mm/Hg HCO3 35.3 H (21-28) mmol/L ABG pH 7.45 (7.35-7.45) ABG Total CO2 40.6 H (22-28) mmol/L ABG O2 Saturation 93.9 L (95-98) % ABG Base Excess 13.4 H (-2.0-3.0) mmol/L ABG Hemoglobin 8.0 L (11.7-17.4) g/dL ABG Carboxyhemoglobin 2.6 H (0.5-1.5) % POC ABG HHb (Measured) 5.9 H (0.0-5.0) % ABG Methemoglobin 1.2 (0.0-3.0) % Reese Test Na A-a O2 Difference 442.0 mm/Hg Respiratory Index 7.6 Hgb O2 Saturation 90.3 L (95.0-98.0) % Mechanical Rate 20 FiO2 80.0 % Tidal Volume 400 PEEP 10 Sodium 147 (132-148) mmol/L Potassium 2.8 L (3.6-5.2) mmol/L Chloride 104 (98-107) mmol/L Carbon Dioxide 39 H (22-30) mmol/L Anion Gap 7 L (10-20) BUN 29 H (7-17) mg/dL Creatinine 0.7 (0.7-1.2) MG/DL Est GFR ( Amer) > 60 Est GFR (Non-Af Amer) > 60 Random Glucose 150 H (65-105) mg/dL Calcium 7.8 L (8.6-10.4) mg/dl Phosphorus 3.1 (2.5-4.5) mg/dL Magnesium 2.3 (1.6-2.3) mg/dL Total Bilirubin 1.1 (0.2-1.3) mg/dL AST 49 H D (14-36) U/L ALT 125 H D (9-52) U/L Alkaline Phosphatase 68 (38-126) U/L Total Protein 4.3 L (6.3-8.3) g/dL Albumin 2.7 L (3.5-5.0) g/dL Globulin 1.7 L (2.2-3.9) gm/dL Albumin/Globulin Ratio 1.6 (1.0-2.1) Laboratory Results - last 24 hr 11/29/16 11/29/16 04:25 06:24 WBC 13.6 H RBC 3.07 L Hgb 9.2 L Hct 28.0 L MCV 91.2 MCH 29.9 MCHC 32.8 L RDW 14.8 H Plt Count 114 L MPV 11.0 Neut % (Auto) 94.5 H Lymph % (Auto) 2.0 L Frontier % (Auto) 3.2 Eos % (Auto) 0.0 Baso % (Auto) 0.3 Neut # 12.8 H Lymph # 0.3 L Frontier # 0.4 Eos # 0.0 Baso # 0.0 Neutrophils % (Manual) 92 H Band Neutrophils % 3 H Lymphocytes % (Manual) 2 L Monocytes % (Manual) 3 Platelet Estimate Slightly decreased L Polychromasia Slight Hypochromasia (manual) Slight Anisocytosis (manual) Slight Puncture Site Rb pCO2 56 H pO2 58 L HCO3 35.3 H ABG pH 7.45 ABG Total CO2 40.6 H ABG O2 Saturation 93.9 L ABG Base Excess 13.4 H ABG Hemoglobin 8.0 L ABG Carboxyhemoglobin 2.6 H POC ABG HHb (Measured) 5.9 H ABG Methemoglobin 1.2 Reese Test Na A-a O2 Difference 442.0 Respiratory Index 7.6 Hgb O2 Saturation 90.3 L Mechanical Rate 20 FiO2 80.0 Tidal Volume 400 PEEP 10 Sodium 147 Potassium 2.8 L Chloride 104 Carbon Dioxide 39 H Anion Gap 7 L BUN 29 H Creatinine 0.7 Est GFR ( Amer) > 60 Est GFR (Non-Af Amer) > 60 Random Glucose 150 H Calcium 7.8 L Phosphorus 3.1 Magnesium 2.3 Total Bilirubin 1.1 AST 49 H D ALT 125 H D Alkaline Phosphatase 68 Total Protein 4.3 L Albumin 2.7 L Globulin 1.7 L Albumin/Globulin Ratio 1.6
[2016-11-29 20:17] VITALS: BP 76/39; PULSE 114; RESP 22; O2SAT 75
[2016-11-30 01:49] LABS: GLUCOSE PLEURAL FLUID 89 mg/dL (()); LDH PLEURAL FLUID 392 U/L (())
--- NOTE | 2016-12-02 13:39 | CARD ---
APPROVED REPORT EKG Measurement Heart [id number] MN [id number] [id number] <Conclusion> Sinus tachycardia with short MN with occasional premature ventricular complexes Left axis deviation ST & T wave abnormality, consider inferior ischemia Abnormal ECG
== END 2016-11-29 20:30 | DRG 468 ==
LOC: C.ER 09:57 → C.9E 13:15 → C.3T 14:26 → C.9I 11-09 12:52
PROVIDERS: ADMIT Internal Medicine; ATTEND Internal Medicine
PROC: 0D9670Z Drainage of Stomach with Drainage Device, Via Natural or Artificial Opening (ICD-10-PCS; 2016-11-06)
PROC: 5A09557 Assistance with Respiratory Ventilation, Greater than 96 Consecutive Hours, Continuous Positive Airway Pressure (ICD-10-PCS; 2016-11-12)
PROC: 5A1955Z Respiratory Ventilation, Greater than 96 Consecutive Hours (ICD-10-PCS; 2016-11-17)
PROC: 0BTF4ZZ Resection of Right Lower Lung Lobe, Percutaneous Endoscopic Approach (ICD-10-PCS; principal; 2016-11-17 11:30)
PROC: 0BJ08ZZ Inspection of Tracheobronchial Tree, Via Natural or Artificial Opening Endoscopic (ICD-10-PCS; 2016-11-17 11:30)
PROC: 0DJ08ZZ Inspection of Upper Intestinal Tract, Via Natural or Artificial Opening Endoscopic (ICD-10-PCS; 2016-11-25)
PROC: 30233N1 Transfusion of Nonautologous Red Blood Cells into Peripheral Vein, Percutaneous Approach (ICD-10-PCS; 2016-11-27)
DX: K56.69 Other intestinal obstruction (principal); J96.01 Acute respiratory failure with hypoxia; J69.0 Pneumonitis due to inhalation of food and vomit; A41.9 Sepsis, unspecified organism; J44.1 Chronic obstructive pulmonary disease with (acute) exacerbation; J84.10 Pulmonary fibrosis, unspecified; R18.8 Other ascites; I50.9 Heart failure, unspecified; M32.9 Systemic lupus erythematosus, unspecified; R32 Unspecified urinary incontinence; K92.1 Melena; B37.49 Other urogenital candidiasis; N39.0 Urinary tract infection, site not specified; B96.1 Klebsiella pneumoniae [K. pneumoniae] as the cause of diseases classified elsewhere; I25.10 Atherosclerotic heart disease of native coronary artery without angina pectoris; G40.909 Epilepsy, unspecified, not intractable, without status epilepticus; F41.8 Other specified anxiety disorders; F17.210 Nicotine dependence, cigarettes, uncomplicated; K29.70 Gastritis, unspecified, without bleeding; K21.9 Gastro-esophageal reflux disease without esophagitis; D64.9 Anemia, unspecified; Z66 Do not resuscitate; Z51.5 Encounter for palliative care; F31.9 Bipolar disorder, unspecified; I25.2 Old myocardial infarction; Z86.73 Personal history of transient ischemic attack (TIA), and cerebral infarction without residual deficits; Z90.49 Acquired absence of other specified parts of digestive tract; Z79.82 Long term (current) use of aspirin